=== PATIENT | female | born 1950 | race Caucasian/White ===

== ENCOUNTER 2016-08-28 11:49 | Observation (INO) | payer MEDICARE, OTHER ==
[~2016-08-28] VITALS: Ht 154.9 cm; Wt 59.0 kg
[~2016-08-28 11:49] MED LIST: ALPR-557 PO; AMIO200T2 PO; AMIT10TA6; ASPI-266 PO; BRIN1S OD; CALC0.253 PO; DILT180C82 PO; EST1.25T; ESTR1TAB24 PO; FAMO20TA13 PO; FAMO20TA3 PO; FLT05NA16 NS; FURO20TA4 PO; FURO40TA4 PO; FURO80TA3 PO; GABA-486 PO; GABA600T2 PO; HYDR-3714 PO; L.AC1CAP6 PO; LOPE1TAB13 PO; LOPE2CAP PO; METO-270 PO; METO-333 PO; MYCO360T3 PO; NEPHRO VITE PO; NITR-65 PO; OMEG1CAP51 PO; ONDA8TAB9 PO; PHEN200T27 PO; POLY17PO6 PO; POTA20TA8 PO; PRAV20TA PO; PRAV20TA3 PO; PREVACID; SERT50TA PO; SULF1TAB34 PO; TACR0.5C17 PO; TACR1CAP PO; TACR1CAP22 PO; VIT1TABL52 PO
--- OUTSIDE RECORDS SUMMARY | 2016-08-28 11:55 | XMS REPORT | Continuity of Care Document ---
Author Author [facility] Organization [facility] Address Unknown Phone Unavailable Care Team Providers Care [facility] [employer] Name Role Phone Emi Juarez PCP Unavailable Source Comments Some departments are not documenting in the electronic medical record. If you do not see the information that you expected, contact Release of Information in the Health Information Management department at [phone] for further assistance in locating additional records.[facility] Active Allergies and Adverse Reactions Allergen Noted Date Severity Reactions Comments Codeine 12/22/2010 NAUSEA AND VOMITING Contrast Dye Iv, Iodine 12/03/2015 Low SEE COMMENTS Cannot have due to Containing transplant Morphine 05/21/2015 Low NAUSEA ONLY Current Medications Prescription Sig. Disp. Refills Start End Date Status Date sertraline (ZOLOFT) 50 mg Take 25 mg by mouth Active PO tablet daily. alprazolam (XANAX) 0.5 mg Take 0.5 mg by mouth at Active PO tablet bedtime as needed. estrogens, conjugated Take 1.25 mg by mouth Active (PREMARIN) 1.25 mg PO daily. tablet Aspirin 81 mg PO Tab Take by mouth daily. Active gabapentin (NEURONTIN) Take 600 mg by mouth Active 100 mg capsule twice daily. brinzolamide(+) (AZOPT) 1 1 Drop three times daily. Active % ophthalmic suspension famotidine (PEPCID) 20 mg Take 20 mg by mouth Active tablet daily. fluticasone (FLONASE) 50 Apply 2 Sprays to each Active mcg/actuation nasal spray nostril as directed daily. loperamide (IMODIUM) 2 mg Take 2 mg by mouth as Active capsule Needed. FOLIC ACID/VITAMIN B COMP Take 1 Tab by mouth Active W-C (NEPHRO-BETITO PO) daily. tacrolimus (PROGRAF) 1 mg Take by mouth twice Active capsule daily. mycophenolate DR Take 360 mg by mouth Active (MYFORTIC) 360 mg TbEC twice daily. tablet LACTOBACILLUS ACIDOPHILUS Take 1 Tab by mouth Active (PROBIOTIC PO) daily. POLYETHYLENE GLYCOL 3350 Take by mouth as Needed. Active (MIRALAX PO) FLAXSEED OIL (OMEGA 3 PO) Take 1,000 mg by mouth Active daily. FUROSEMIDE PO Take by mouth twice Active daily. 80mg in AM, 40mg in PM potassium chloride SR Take 20 mEq by mouth Active (K-DUR) 20 mEq tablet daily. DIPHENOXYLATE Take by mouth. Active HCL/ATROPINE (LOMOTIL PO) Active Problems Problem Noted Date Renal cell carcinoma of left kidney (HCC) 05/19/2015 Last Assessment & Plan: Impression: 1. 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 Mild occassional cytopenias 2/2 Myfortic 3. Headaches with negative MRI, unclear etiology 4. PCKD s/p bilateral nephrectomies and subsequent renal transplant 5. ESRD 2/2 #2 6. HTN 7. Afib on amiodarone not anticoagulated 8. CHF 9. AV replacement 01/2015 10. ECOG PS 1 Plan: 1. Doing well from RCCa perspective. She had a very early stage lesion, but a higher risk histology and is on immune suppression. Continue surveillance. 2. Scans not fully read yet. Assuming these are normal, we can see her in a year. 3. CT Chest annually, next due 05/[address] A/P q2yrs, next due 05/2018. 5. She will follow until 10 years have passed, through Fall 2022. 6. RTC with me in 1 year or sooner should new or concerning symptoms develop. I have discussed the diagnosis and treatment plan with the patient and she expresses understanding and wishes to proceed. Hearing loss, neural 02/05/2012 Ovarian cystic mass 12/22/2010 Overview: DIAGNOSIS: Endometriosis PRIOR THERAPY: Status post laparoscopic BSO and excision of left pelvic side wall nodule. Nodule c/w endometriosis. Ovarian cyst: endometriosis. Opposite therapy: atrophy. L ast Assessment & Plan: Current Clinical examination, from today 03/23/2011: She states that she has recovered from surgery. On examination her incisions are intact, clean and without signs of infection Her activity is now at preoperative levels. PLAN: Can resume normal activity. OK to be on transplant list for renal transplant. HTN (hypertension) 12/22/2010 Depression with anxiety 12/22/2010 Atrial fibrillation (HCC) 12/22/2010 Overview: paroxysmal Chronic kidney disease (CKD) 12/22/2010 Overview: Dialysis 3x/weekly CAD (coronary artery disease) 12/22/2010 Chronic UTI 12/22/2010 Most Recent Encounters Date Type Specialty Providers Description 06/05/2016 Office Visit Oncology Delvin Fang MD Renal cell carcinoma of left kidney (HCC) (Primary Dx) 06/05/2016 Hospital Radiology Delvin Fang MD Encounter 06/05/2016 Screening Form Social History Tobacco Use Types Packs/Day Years Used Date Never Smoker Smokeless Tobacco: Never Used Alcohol Use Drinks/Week oz/Week Comments No Last Filed Vital Signs Vital Sign Reading Time Taken Blood Pressure 122/62 06/05/2016 4:09 PM [employer] Pulse 69 06/05/2016 4:09 PM [employer] Temperature 36.5 C (97.7 F) 06/05/2016 4:09 PM [employer] Respiratory Rate 17 06/05/2016 4:09 PM [employer] Height 1.549 m (5' 0.98") 06/05/2016 4:09 PM [employer] Weight 60.51 kg (133 lb 6.4 oz) 06/05/2016 4:09 PM [employer] Body Mass Index 25.22 06/05/2016 4:09 PM [employer] Oxygen Saturation 99% 06/05/2016 4:09 PM [employer] Plan of Care Date Type Specialty Providers Description 05/18/2017 Appointment [place] [address], [place] [address] [phone] (Fax) 05/18/2017 [place] [address] [place] [address] [phone] (Fax) Health Maintenance Due Date Last Done Comments Hepatitis C Screening 1950 Physical (Comprehensive) 1957 Exam Pertussis Vaccine 1961 Tetanus Vaccine 1967 Breast Cancer Screening 1990 Colorectal Cancer 2000 Screening Shingles Vaccine 2010 Osteoporosis Screening 2015 Prevnar/Pneumovax (#1) 2015 Influenza Vaccine 02/17/2016 Results from Last [address] ABD/PELV WO CONTRAST (06/05/2016 4:15 PM) Impressions CHEST: 1. No new or enlarging pulmonary nodules or thoracic lymphadenopathy. ABDOMEN AND PELVIS: 1. Normal appearing right iliac fossa renal transplant without post transplant fluid collection or hydronephrosis. 2. Bilateral nephrectomies without recurrent mass identified. No abdominopelvic lymphadenopathy. Approved by Apollo Charles M.D. on 06/05/2016 5:04 PM By my electronic signature, I attest that I have personally reviewed the images for this examination and formulated the interpretations and opinions expressed in this report Finalized by Cale Mills D.O. on 06/05/2016 5:18 PM. Dictated by Apollo Charles M.D. on 06/05/2016 4:[address] CHEST, ABDOMEN AND PELVIS Clinical Indication: Female, 66 years old. Renal cell carcinoma of the left kidney. Technique: Multiple contiguous axial images were obtained through the chest, abdomen and pelvis without IV contrast material. Post processing coronal and sagittal reconstruction images were made from the axial images. IV contrast: None. Bowel contrast:None Comparison: CT chest from December 03, [address] chest abdomen from April 24, 2014 CHEST FINDINGS: Evaluation of the mediastinum and lupe, including the vasculature and for lymphadenopathy, is limited without the use of IV contrast. Lower Neck: Unremarkable Axilla, Mediastinum and Lupe: No axillary mediastinal lymphadenopathy. Evaluation of the lupe is limited secondary to lack of IV contrast. Heart and Great Vessels: Heart is normal in size. Median sternotomy and aortic valve replacement. Good bony fusion at the sternotomy site with intact sternotomy wires. Coronary artery disease. Airway, Lungs and Pleura: Stable subcentimeter nodule within the left lower lobe unchanged since at least April 24, 2014 and likely benign. No new or enlarging pulmonary nodule identified. Chest Wall and Osseous Structures: Unremarkable. Abdomen and Pelvis Findings: Evaluation the abdominopelvic viscera is limited in the absence of IV contrast. Liver and Biliary system: Unremarkable. Spleen: Unremarkable. Adrenal Glands and Kidneys: Adrenal glands are unremarkable. Bilateral nephrectomies. No recurrent mass identified. Pancreas and Retroperitoneum: Unremarkable. Aorta and Major Vessels: Unremarkable. Bowel, Mesentery and Peritoneal space: Large and small bowel loops are normal in caliber. No ascites. No mesenteric lymphadenopathy. No pneumoperitoneum. Pelvis: Normal appearing right iliac fossa renal transplant without post transplant fluid collection or hydronephrosis. The urinary bladder and vaginal cuff are unremarkable. No pelvic lymphadenopathy. Abdominal wall and Osseous Structures: No destructive osseous lesions. Small fat -containing umbilical hernia. Procedure Note Interface, Radiant Results - Mon Jun 05, 2016 5:22 [address] [employer] [address] CHEST, ABDOMEN AND PELVIS Clinical Indication: Female, 66 years old. Renal cell carcinoma of the left kidney. Technique: Multiple contiguous axial images were obtained through the chest, abdomen and pelvis without IV contrast material. Post processing coronal and sagittal reconstruction images were made from the axial images. IV contrast: None. Bowel contrast: None Comparison: CT chest from December 03, [address] chest abdomen from April 24, 2014 CHEST FINDINGS: Evaluation of the mediastinum and lupe, including the vasculature and for lymphadenopathy, is limited without the use of IV contrast. Lower Neck: Unremarkable Axilla, Mediastinum and Lupe: No axillary mediastinal lymphadenopathy. Evaluation of the lupe is limited secondary to lack of IV contrast. Heart and Great Vessels: Heart is normal in size. Median sternotomy and aortic valve replacement. Good bony fusion at the sternotomy site with intact sternotomy wires. Coronary artery disease. Airway, Lungs and Pleura: Stable subcentimeter nodule within the left lower lobe unchanged since at least April 24, 2014 and likely benign. No new or enlarging pulmonary nodule identified. Chest Wall and Osseous Structures: Unremarkable. Abdomen and Pelvis Findings: Evaluation the abdominopelvic viscera is limited in the absence of IV contrast. Liver and Biliary system: Unremarkable. Spleen: Unremarkable. Adrenal Glands and Kidneys: Adrenal glands are unremarkable. Bilateral nephrectomies. No recurrent mass identified. Pancreas and Retroperitoneum: Unremarkable. Aorta and Major Vessels: Unremarkable. Bowel, Mesentery and Peritoneal space: Large and small bowel loops are normal in caliber. No ascites. No mesenteric lymphadenopathy. No pneumoperitoneum. Pelvis: Normal appearing right iliac fossa renal transplant without post transplant fluid collection or hydronephrosis. The urinary bladder and vaginal cuff are unremarkable. No pelvic lymphadenopathy. Abdominal wall and Osseous Structures: No destructive osseous lesions. Small fat -containing umbilical hernia. IMPRESSION CHEST: 1. No new or enlarging pulmonary nodules or thoracic lymphadenopathy. ABDOMEN AND PELVIS: 1. Normal appearing right iliac fossa renal transplant without post transplant fluid collection or hydronephrosis. 2. Bilateral nephrectomies without recurrent mass identified. No abdominopelvic lymphadenopathy. Approved by Apollo Charles M.D. on 06/05/2016 5:04 PM By my electronic signature, I attest that I have personally reviewed the images for this examination and formulated the interpretations and opinions expressed in this report Finalized by Cale Mills D.O. on 06/05/2016 5:18 PM. Dictated by Apollo Charles M.D. on 06/05/2016 4:[address] CHEST WO CONTRAST (06/05/2016 4:15 PM) Impressions CHEST: 1. No new or enlarging pulmonary nodules or thoracic lymphadenopathy. ABDOMEN AND PELVIS: 1. Normal appearing right iliac fossa renal transplant without post transplant fluid collection or hydronephrosis. 2. Bilateral nephrectomies without recurrent mass identified. No abdominopelvic lymphadenopathy. Approved by Apollo Charles M.D. on 06/05/2016 5:04 PM By my electronic signature, I attest that I have personally reviewed the images for this examination and formulated the interpretations and opinions expressed in this report Finalized by Cale Mills D.O. on 06/05/2016 5:18 PM. Dictated by Apollo Charles M.D. on 06/05/2016 4:[address] CHEST, ABDOMEN AND PELVIS Clinical Indication: Female, 66 years old. Renal cell carcinoma of the left kidney. Technique: Multiple contiguous axial images were obtained through the chest, abdomen and pelvis without IV contrast material. Post processing coronal and sagittal reconstruction images were made from the axial images. IV contrast: None. Bowel contrast:None Comparison: CT chest from December 03, [address] chest abdomen from April 24, 2014 CHEST FINDINGS: Evaluation of the mediastinum and lupe, including the vasculature and for lymphadenopathy, is limited without the use of IV contrast. Lower Neck: Unremarkable Axilla, Mediastinum and Lupe: No axillary mediastinal lymphadenopathy. Evaluation of the lupe is limited secondary to lack of IV contrast. Heart and Great Vessels: Heart is normal in size. Median sternotomy and aortic valve replacement. Good bony fusion at the sternotomy site with intact sternotomy wires. Coronary artery disease. Airway, Lungs and Pleura: Stable subcentimeter nodule within the left lower lobe unchanged since at least April 24, 2014 and likely benign. No new or enlarging pulmonary nodule identified. Chest Wall and Osseous Structures: Unremarkable. Abdomen and Pelvis Findings: Evaluation the abdominopelvic viscera is limited in the absence of IV contrast. Liver and Biliary system: Unremarkable. Spleen: Unremarkable. Adrenal Glands and Kidneys: Adrenal glands are unremarkable. Bilateral nephrectomies. No recurrent mass identified. Pancreas and Retroperitoneum: Unremarkable. Aorta and Major Vessels: Unremarkable. Bowel, Mesentery and Peritoneal space: Large and small bowel loops are normal in caliber. No ascites. No mesenteric lymphadenopathy. No pneumoperitoneum. Pelvis: Normal appearing right iliac fossa renal transplant without post transplant fluid collection or hydronephrosis. The urinary bladder and vaginal cuff are unremarkable. No pelvic lymphadenopathy. Abdominal wall and Osseous Structures: No destructive osseous lesions. Small fat -containing umbilical hernia. Procedure Note Interface, Radiant Results - Mon Jun 05, 2016 5:22 [address] [employer] [address] CHEST, ABDOMEN AND PELVIS Clinical Indication: Female, 66 years old. Renal cell carcinoma of the left kidney. Technique: Multiple contiguous axial images were obtained through the chest, abdomen and pelvis without IV contrast material. Post processing coronal and sagittal reconstruction images were made from the axial images. IV contrast: None. Bowel contrast: None Comparison: CT chest from December 03, [address] chest abdomen from April 24, 2014 CHEST FINDINGS: Evaluation of the mediastinum and lupe, including the vasculature and for lymphadenopathy, is limited without the use of IV contrast. Lower Neck: Unremarkable Axilla, Mediastinum and Lupe: No axillary mediastinal lymphadenopathy. Evaluation of the lupe is limited secondary to lack of IV contrast. Heart and Great Vessels: Heart is normal in size. Median sternotomy and aortic valve replacement. Good bony fusion at the sternotomy site with intact sternotomy wires. Coronary artery disease. Airway, Lungs and Pleura: Stable subcentimeter nodule within the left lower lobe unchanged since at least April 24, 2014 and likely benign. No new or enlarging pulmonary nodule identified. Chest Wall and Osseous Structures: Unremarkable. Abdomen and Pelvis Findings: Evaluation the abdominopelvic viscera is limited in the absence of IV contrast. Liver and Biliary system: Unremarkable. Spleen: Unremarkable. Adrenal Glands and Kidneys: Adrenal glands are unremarkable. Bilateral nephrectomies. No recurrent mass identified. Pancreas and Retroperitoneum: Unremarkable. Aorta and Major Vessels: Unremarkable. Bowel, Mesentery and Peritoneal space: Large and small bowel loops are normal in caliber. No ascites. No mesenteric lymphadenopathy. No pneumoperitoneum. Pelvis: Normal appearing right iliac fossa renal transplant without post transplant fluid collection or hydronephrosis. The urinary bladder and vaginal cuff are unremarkable. No pelvic lymphadenopathy. Abdominal wall and Osseous Structures: No destructive osseous lesions. Small fat -containing umbilical hernia. IMPRESSION CHEST: 1. No new or enlarging pulmonary nodules or thoracic lymphadenopathy. ABDOMEN AND PELVIS: 1. Normal appearing right iliac fossa renal transplant without post transplant fluid collection or hydronephrosis. 2. Bilateral nephrectomies without recurrent mass identified. No abdominopelvic lymphadenopathy. Approved by Apollo Charles M.D. on 06/05/2016 5:04 PM By my electronic signature, I attest that I have personally reviewed the images for this examination and formulated the interpretations and opinions expressed in this report Finalized by Cale Mills D.O. on 06/05/2016 5:18 PM. Dictated by Apollo Charles M.D. on 06/05/2016 4:40 PM.
[2016-08-28] MEDS ORDERED: ASPIRIN 81 MG CHEW (CHILDREN'S ASA) PO ONE (12:00)
[2016-08-28 12:17] LABS: BASOPHILS % (AUTO) 1 % (0-10); EOSINOPHILS # (AUTO) 0.1 10^3/uL (0.0-0.3); EOSINOPHILS % (AUTO) 1 % (0-10); LYMPHOCYTES # (AUTO) 1.4 X 10^3 (1.0-4.0); LYMPHOCYTES % (AUTO) 25 % (12-44); MEAN CORPUSCULAR HEMOGLOBIN 30 PG (25-34); MEAN CORPUSCULAR HGB CONC 36 G/DL (32-36); MEAN CORPUSCULAR VOLUME 83 FL (80-99); MEAN PLATELET VOLUME 11.5 FL (7.4-10.4); MONOCYTES # (AUTO) 0.6 X 10^3 (0.0-1.0); MONOCYTES % (AUTO) 11 % (0-12); NEUTROPHILS # (AUTO) 3.6 X 10^3 (1.8-7.8); NEUTROPHILS % (AUTO) 64 % (42-75); PLATELET COUNT 207 10^3/uL (130-400); RED BLOOD COUNT 4.46 10^6/uL (4.35-5.85); RED CELL DISTRIBUTION WIDTH 13.6 % (10.0-14.5); WHITE BLOOD COUNT 5.7 10^3/uL (4.3-11.0)
[2016-08-28 12:26] LABS: PROTHROMBIN TIME PATIENT 13.1 SEC (12.2-14.7)
[2016-08-28 12:34] LABS: ALANINE AMINOTRANSFERASE 19 U/L (0-55); ALBUMIN 4.4 G/DL (3.2-4.5); ANION GAP 13 MMOL/L (5-14); ASPARTATE AMINO TRANSFERASE 33 U/L (5-34); BILIRUBIN,TOTAL 1.3 MG/DL (0.1-1.0); BLOOD UREA NITROGEN 12 MG/DL (7-18); BUN/CREATININE RATIO 13; CALCIUM 9.5 MG/DL (8.5-10.1); CARBON DIOXIDE 24 MMOL/L (21-32); CHLORIDE 109 MMOL/L (98-107); CREATINE KINASE 52 U/L (29-168); GFR ESTIMATED > 60; GLUCOSE 90 MG/DL (70-105); MAGNESIUM 2.2 MG/DL (1.8-2.4); POTASSIUM 4.2 MMOL/L (3.6-5.0); SODIUM 146 MMOL/L (135-145); TOTAL PROTEIN 6.9 G/DL (6.4-8.2)
[2016-08-28 12:41] LABS: MYOGLOBIN SERUM 51.4 NG/ML (10.0-92.0)
--- NOTE | 2016-08-28 12:50 | Diagnostic Imaging Report ---
Portable upright radiograph of the chest. INDICATION: Shortness of breath and chest pain. FINDINGS: The lungs demonstrate minimal interstitial prominence in the mid and lower lungs, may relate to scarring with no focal consolidation. The heart is borderline in size. There is an aortic valve replacement and sternotomy wires seen. No effusion or pneumothorax. The mediastinum and ginger appear unremarkable. IMPRESSION: Minimal prominence of the interstitial markings in the mid and lower lung zones could relate to scarring. No airspace consolidation. Dictated by: Dictated on workstation # [id number]
[2016-08-28] MEDS ORDERED: fentaNYL INJECTION 100 MCG/2 ML AMP IVP STA (13:38)
--- NOTE | 2016-08-28 13:42 | ED Cardiac General ---
History of Present Illness General Chief Complaint: Chest Pain Stated Complaint: CHEST PAIN Nursing Triage Note: PT SENT TO ED BY [facility] FOR CHEST PAIN SINCE LAST NOC. PT REPORTS STERNAL CP THAT IS REPRODUCABLE. SHE ALSO C/O NAUSEA AND DYSPNEA UPON EXERTION. PT HAS SIGNIFICANT PMH. Source: patient, spouse Exam Limitations: no limitations History of Present Illness Time seen by provider: 13:15 Initial Comments 66 yo female patient presents to the ED with c/o sternal chest pain that radiates into the LUE. Reports pain is intermittent. Does c/o nausea and ROY. Denies wheezing, dizziness, vomiting. Does have a h/o IBS. States she has been stressed the last several days and has a h/o anxiety. Has a h/o cochlear implant and kidney transplant. Patient sees a kiln tender and it communications manager at [facility]. Timing/Duration: intermittent, 12-24 hours Location: central Activities at Onset: none NTG SL SAND CAR WORKER: No ASA po SAND CAR WORKER: No Allergies and Home Medications Allergies Coded Allergies: codeine (Unverified Allergy, Unknown, 04/01/15) morphine (Verified Allergy, Unknown, NAUSEA, 05/05/16) Home Medications Alosetron HCl 0.5 Mg Tab 0.5 MG PO BID (Reported) Alprazolam 0.5 Mg Tab 0.5 MG PO PRN PRN PRN SLEEP (Reported) Aspirin 81 Mg Tablet.dr 81 MG PO DAILY (Reported) Brinzolamide 5 Ml Drops.susp 1 DROP OD DAILY (Reported) Cholecalciferol (Vitamin D3) 400 Unit Tablet 400 UNIT PO DAILY (Reported) Cyanocobalamin (Vitamin B-12) 1,000 Mcg Tablet 1,000 MCG PO DAILY (Reported) Dicyclomine HCl 20 Mg Tablet 20 MG PO QID (Reported) Diphenoxylate HCl/Atropine 1 Each Tablet 1 EACH PO QID PRN PRN DIARRHEA ( Reported) Esomeprazole Magnesium 40 Mg Cap 40 MG PO DAILY (Reported) Famotidine 20 Mg Tablet 20 MG PO DAILY (Reported) Fluticasone Propionate 16 Gm [place] #1 1 SPRAY NS UD PRN PRN CONGESTION (Reported ) Furosemide 40 Mg Tablet 40 MG PO 1600 (Reported) Furosemide 80 Mg Tablet 80 MG PO DAILY (Reported) Gabapentin 600 Mg Tablet 600 MG PO TID (Reported) L.acidoph & Paracasei,B.lactis 1 Each Capsule 1 CAP PO BID (Reported) Loperamide HCl/Simethicone 1 Each Tablet 1 EACH PO PRN (Reported) Mycophenolate Sodium 360 Mg Tablet.dr 360 MG PO BID (Reported) Polyethylene Glycol 3350 17 Gm Powd.pack 17 GM PO UD PRN PRN PRN (Reported) Potassium Chloride 20 Meq Tab.er.prt 20 MEQ PO DAILY (Reported) Sertraline Hcl 50 Mg Tablet 50 MG PO HS (Reported) Tacrolimus 1 Mg Capsule 1 MG PO BID (Reported) Vit B Cmplx 3/FA/Vit C/Biotin 1 Each Tablet 1 TAB PO DAILY (Reported) Review of Systems Constitutional: No chills, No diaphoresis, No dizziness, No fever, malaiseNo weakness EENTM: No Symptoms Reported Respiratory: Denies Cough, Shortness of Air SOA With ExertionDenies Stridor, Denies Wheezing Cardiovascular: Denies Chest Pain, Denies Edema, Denies Lightheadedness, Denies Palpitations, Denies Syncope Gastrointestinal: Denies Abdomen Distended, Denies Abdominal Pain, Nausea Poor AppetiteDenies Poor Fluid Intake, Denies Rectal Bleeding, Denies Vomiting, Other (alternating constipation with diarrhea due to recent diagnosis of IBS) Genitourinary: Denies Burning, Denies Frequency, Denies Flank Pain, Denies Hematuria, Denies Pain Musculoskeletal: see HPI Skin: no symptoms reported Psychiatric/Neurological: Denies Headache, Denies Numbness, Denies Paresthesia , Denies Tingling, Denies Weakness All Other Systems Reviewed Negative Unless Noted: Yes (Negative excepted noted.) Past Jnrywcb-Ssfzil-Uwgmfg Hx Patient Social History Alcohol Use: Denies Use Recreational Drug Use: No Smoking Status: Never a Smoker 2nd Hand Smoke Exposure: No Recent Foreign Travel: No Contact w/Someone Who Travel: No Recent Infectious Disease Expo: No Recent Hopitalizations: No Immunizations Up To Date Tetanus Booster (TDap): Unknown PED Vaccines UTD: No Date of Pneumonia Vaccine: Jun 18, 2014 Date of Influenza Vaccine: Mar 24, 2016 Seasonal Allergies Seasonal Allergies: Yes Surgeries HX Surgeries: Yes (COCHLEAR IMPLANT, CARDIAC ABLATION) Surgeries: Appendectomy, Cardiac, Hysterectomy, Nephrectomy, Oophorectomy, Orthopedic, Renal, Tonsillectomy, Valve Replacement Respiratory Hx Respiratory Disorders: No Respiratory Disorders: Pneumonia Cardiovascular Hx Cardiac Disorders: Yes ( CHF) Cardiac Disorders: Atrial Fibrillation, Hypertension, Valvular Heart Disease Neurological Hx Neurological Disorders: Yes Neurological Disorders: Neuropathy Reproductive System Hx Reproductive Disorders: No Genitourinary Hx Genitourinary Disorders: Yes (KIDNEY TRANSPLANT WITH [place] KIDNEY REMOVAL) Genitourinary Disorders: Polycystic Kidney Disease Gastrointestinal Hx Gastrointestinal Disorders: Yes Gastrointestinal Disorders: Chronic Diarrhea Musculoskeletal Hx Musculoskeletal Disorders: No Musculoskeletal Disorders: Degenerate Disk Disease, Arthritis Endocrine Hx Endocrine Disorders: No HEENT HX ENT Disorders: Yes (GLASS L EYE) HEENT Disorders: Cataract Hearing Impairment: Hard of Hearing, Bilateral Hearing Aide Cancer Hx Cancer: Yes Cancer: Kidney Psychosocial Hx Psychiatric Problems: Yes Behavioral Health Disorders: Depression Integumentary HX Skin/Integumentary Disorder: No Blood Transfusions Hx Blood Disorders: No Reviewed Nursing Assessment Reviewed/Agree w Nursing PMH: Yes Family Medical History Significant Family History: No Pertinent Family Hx Family Medial History: Patient reports no known family medical history. Physical Exam Vital Signs Vital Sign - Last 12Hours Capillary Refill : Less Than 3 Seconds General Appearance: WD/WN Anxious Neck: Normal Inspection SuppleNo JVD Respiratory: Lungs Clear Normal Breath Sounds No Respiratory Distress Other ( anterior chest TTP) Cardiovascular: Regular Rate, Rhythm No Murmur Normal Peripheral Pulses Gastrointestinal: Normal Bowel Sounds No Organomegaly SoftNo Distended, Guarding (RUQ)No Rebound, Tenderness (RUQ and epigastric) Extremity: Normal Capillary Refill Normal Inspection No Calf Tenderness No Pedal Edema Neurologic/Psychiatric: Alert Oriented x3 Other (patient is very anxious and tearful throughout the exam.) Skin: Normal Color Warm/Dry Focused Exam Lactic Acid Level Laboratory Tests Test 08/28/16 12:00 08/28/16 12:59 Alanine Aminotransferase (ALT/SGPT) 19U/L (0-55) Albumin 4.4G/DL (3.2-4.5) Alkaline Phosphatase 86U/L (40-136) Anion Gap 13MMOL/L (5-14) Aspartate Amino Transf (AST/SGOT) 33U/L (5-34) BUN/Creatinine Ratio 13 Blood Urea Nitrogen 12MG/DL (7-18) Calcium Level 9.5MG/DL (8.5-10.1) Carbon Dioxide Level 24MMOL/L (21-32) Chloride Level 109MMOL/L (98-107) H Creatine Kinase MB 0.8NG/ML (<6.6) Creatinine 0.90MG/DL (0.60-1.30) Estimat Glomerular Filtration Rate > 60 Glucose Level 90MG/DL (70-105) Magnesium Level 2.2MG/DL (1.8-2.4) Myoglobin 51.4NG/ML (10.0-92.0) Potassium Level 4.2MMOL/L (3.6-5.0) Sodium Level 146MMOL/L (135-145) H Total Bilirubin 1.3MG/DL (0.1-1.0) H Total Creatine Kinase 52U/L (29-168) Total Protein 6.9G/DL (6.4-8.2) Troponin I < 0.30NG/ML (<0.30) B-Type Natriuretic Peptide 149.9PG/ML (<100.0) H Progress/Results/Core Measures Results/Orders Lab Results Laboratory Tests Test 08/28/16 12:00 08/28/16 12:59 Range/Units Activated Partial Thromboplast Time 33 24-35 SEC Alanine Aminotransferase (ALT/SGPT) 19 0-55 U/L Albumin 4.4 3.2-4.5 G/DL Alkaline Phosphatase 86 40-136 U/L Anion Gap 13 5-14 MMOL/L Aspartate Amino Transf (AST/SGOT) 33 5-34 U/L BUN/Creatinine Ratio 13 Basophils # (Auto) 0.0 0.0-0.1 10^3/uL Basophils (%) (Auto) 1 0-10 % Blood Urea Nitrogen 12 7-18 MG/DL Calcium Level 9.5 8.5-10.1 MG/DL Carbon Dioxide Level 24 21-32 MMOL/L Chloride Level 109 H 98-107 MMOL/L Creatine Kinase MB 0.8 <6.6 NG/ML Creatinine 0.90 0.60-1.30 MG/DL Eosinophils # (Auto) 0.1 0.0-0.3 10^3/uL Eosinophils (%) (Auto) 1 0-10 % Estimat Glomerular Filtration Rate > 60 Glucose Level 90 70-105 MG/DL Hematocrit 37 35-52 % Hemoglobin 13.3 11.5-16.0 G/DL INR Comment 1.0 0.8-1.4 Lymphocytes # (Auto) 1.4 1.0-4.0 X 10^3 Lymphocytes (%) (Auto) 25 12-44 % Magnesium Level 2.2 1.8-2.4 MG/DL Mean Corpuscular Hemoglobin 30 25-34 PG Mean Corpuscular Hemoglobin Concent 36 32-36 G/DL Mean Corpuscular Volume 83 80-99 FL Mean Platelet Volume 11.5 H 7.4-10.4 FL Monocytes # (Auto) 0.6 0.0-1.0 X 10^3 Monocytes (%) (Auto) 11 0-12 % Myoglobin 51.4 10.0-92.0 NG/ML Neutrophils # (Auto) 3.6 1.8-7.8 X 10^3 Neutrophils (%) (Auto) 64 42-75 % Platelet Count 207 130-400 10^3/uL Potassium Level 4.2 3.6-5.0 MMOL/L Prothrombin Time 13.1 12.2-14.7 SEC Red Blood Count 4.46 4.35-5.85 10^6/uL Red Cell Distribution Width 13.6 10.0-14.5 % Sodium Level 146 H 135-145 MMOL/L Total Bilirubin 1.3 H 0.1-1.0 MG/DL Total Creatine Kinase 52 29-168 U/L Total Protein 6.9 6.4-8.2 G/DL Troponin I < 0.30 <0.30 NG/ML White Blood Count 5.7 4.3-11.0 10^3/uL B-Type Natriuretic Peptide 149.9 H <100.0 PG/ML My Orders Orders-RHONDA PIKE PA Cbc With Automated Diff (08/28/16 11:58) Magnesium (08/28/16 11:58) Chest 1 View, Ap/Pa Only (08/28/16 11:58) Ekg Tracing (08/28/16 11:58) Cardiac Profile 1 (08/28/16 11:58) Comprehensive Metabolic Panel (08/28/16 11:58) Myoglobin Serum (08/28/16 11:58) Protime With Inr (08/28/16 11:58) Partial Thromboplastin Time (08/28/16 11:58) O2 (08/28/16 11:58) Monitor-Rhythm Ecg Trace Only (08/28/16 11:58) Lipid Panel (08/29/16 06:00) Aspirin Chewable Tablet (Baby Aspirin Ch (08/28/16 12:00) Saline Lock/Iv-Start (08/28/16 11:58) Creatine Kinase (08/28/16 11:58) Creatine Kinase Mb (08/28/16 11:58) BNP (08/28/16 11:58) Us Gallbladder 42840 (08/28/16 13:38) Alprazolam Tablet (Xanax Tablet) (08/28/16 13:45) Fentanyl Injection (Sublimaze Injection (08/28/16 13:38) Medications Given in ED Vital Signs/I&O Vital Sign - Last 12Hours 08/28/16 08/28/16 08/28/16 08/28/16 11:49 11:49 12:00 12:27 Temp 97.9 98.1 Pulse 65 Resp 24 B/P 149/74 Pulse Ox 100 100 O2 Delivery Room Air Room Air Room Air Blood Pressure Mean: 99 ECG Initial ECG Impression Date: Aug 28, 2016 Initial ECG Impression Time: 11:56 Initial ECG Rate: 67 Initial ECG Rhythm: Normal Sinus Initial ECG Comparisson: Unchanged Comment Sinus rhythm. Borderline QT prolongation. Similar to previous ECG. ECG reviewed and discussed with Dr. Rodas. Diagnostic Imaging Diagonstic Imaging: Ultrasound Plain Films/CT/US/NM/MRI: other (gallbladder) Comments FINDINGS: The pancreas is largely obscured by bowel gas. The liver demonstrates no focal lesion. Hepatopetal flow in the portal vein is seen. The gallbladder demonstrates no stones or wall thickening. No pericholecystic fluid is seen. The CBD is 3 mm in caliber. The right renal fossa demonstrates no visualized kidney possibly related to atrophy. There is a renal transplant in the right lower quadrant measuring 9 cm in length with no hydronephrosis or focal lesion. No free fluid or fluid collection in the upper right quadrant. Sonographic Leyva's sign is reportedly negative. IMPRESSION: No evidence of gallstones or cholecystitis. Dictated by: Dictated on workstation # [id number] Reviewed: Reviewed by Me (radiology report reviewed by me) Diagonstic Imaging: Xray Plain Films/CT/US/NM/MRI: chest Comments FINDINGS: The lungs demonstrate minimal interstitial prominence in the mid and lower lungs, may relate to scarring with no focal consolidation. The heart is borderline in size. There is an aortic valve replacement and sternotomy wires seen. No effusion or pneumothorax. The mediastinum and ginger appear unremarkable. IMPRESSION: Minimal prominence of the interstitial markings in the mid and lower lung zones could relate to scarring. No airspace consolidation. Dictated by: Dictated on workstation # [id number] Reviewed: Reviewed by Me (radiology report reviewed by me. ) Departure Communication Time/Spoke to Admitting Phy: 17:[address] Lawrence accepts patient to her medical service for pain cardiology consult and further evaluation. Progress Notes Patient seen and evaluated. Patient did show improvement in symptoms with fentanyl and xanax. Patient does con't to have intermittent anxiety and chest pain radiating down the LUE. I have discussed all laboratory findings, diagnostic findings and plan for admission with the patient and . Both voice understanding and agree with the treatment plan. Patient case discussed with Dr. Rodas, he agrees with the plan of care. Impression Impression: Primary Impression: Chest pain Qualified Code: R07.9 - Chest pain, unspecified Additional Impressions: Shortness of breath RUQ abdominal pain Anxiety Disposition: ADMITTED INPATIENT Condition: Stable Decision to Admit Reason: Admit from ER (General) Decision to Admit/Date: Aug 28, 2016 Time/Decision to Admit Time: 17:30 Departure-Patient Inst. Referrals: GISELA BRUSH DO (PCP/Family) Primary Care Physician RHONDA PIKE Aug 28, 2016 13:42
[2016-08-28] MEDS ORDERED: ALPRAZolam 0.25 MG (XANAX) TAB PO ONE (13:45)
--- NOTE | 2016-08-28 15:21 | Diagnostic Imaging Report ---
PROCEDURE: US Gallbladder. TECHNIQUE: Multiple real-time grayscale images were obtained over the right upper quadrant in various projections. INDICATION: Chest pain. FINDINGS: The pancreas is largely obscured by bowel gas. The liver demonstrates no focal lesion. Hepatopetal flow in the portal vein is seen. The gallbladder demonstrates no stones or wall thickening. No pericholecystic fluid is seen. The CBD is 3 mm in caliber. The right renal fossa demonstrates no visualized kidney possibly related to atrophy. There is a renal transplant in the right lower quadrant measuring 9 cm in length with no hydronephrosis or focal lesion. No free fluid or fluid collection in the upper right quadrant. Sonographic Leyva's sign is reportedly negative. IMPRESSION: No evidence of gallstones or cholecystitis. Dictated by: Dictated on workstation # [id number]
[2016-08-28] MEDS ORDERED: PATIENT MAY USE OWN MEDS, ALL MC SCH (18:15)
[2016-08-28] MEDS ORDERED: ALPRAZolam 0.5 MG (XANAX) TAB PO PRN (18:15)
[2016-08-28] MEDS ORDERED: CATHETER FLUSH 10 ML SYR IV PRN (18:30)
[2016-08-28] MEDS ORDERED: ALPRAZolam 0.25 MG (XANAX) TAB PO PRN (18:30)
[2016-08-28] MEDS ORDERED: ACETAMINOPHEN 500 MG TAB (TYLENOL) PO PRN (18:30)
[2016-08-28] MEDS ORDERED: CYAN10006 PO (18:42)
[2016-08-28] MEDS ORDERED: ASPI-479 PO (18:42)
[2016-08-28] MEDS ORDERED: DICY20TA10 PO (18:42)
[2016-08-28] MEDS ORDERED: DIPH1TAB PO (18:42)
[2016-08-28] MEDS ORDERED: NF-ESOM40C PO (18:42)
[2016-08-28] MEDS ORDERED: CHOL400T PO (18:42)
[2016-08-28] MEDS ORDERED: NFALOSE0.5 PO (18:42)
[2016-08-28] MEDS ORDERED: DIPHENOXYLATE/ATROPINE 2.5MG/0.025MG (LOMOTIL) TAB PO PRN (19:30)
[2016-08-28 20:00] VITALS: BP 156/77
[2016-08-28] MEDS: 1/2 NS IV SOLUTION 1,000 ML IV SCH (20:56)
[2016-08-28] MEDS ORDERED: MYCOPHENOLIC ACID 360 MG TAB PO SCH (21:00)
[2016-08-28] MEDS ORDERED: DICYCLOMINE 20 MG TAB PO SCH (21:00)
[2016-08-28] MEDS ORDERED: ALOSETRON PO SCH (21:00)
[2016-08-28] MEDS ORDERED: SERTRALINE 50 MG (ZOLOFT) TABLET PO SCH (21:00)
[2016-08-28] MEDS ORDERED: TACROLIMUS 1 MG (PROGRAF) CAP NON-FORMULARY PO SCH (21:00)
[2016-08-29] VITALS: BP 122/58
[2016-08-29 04:00] VITALS: BP 145/78
[2016-08-29 06:34] LABS: BASOPHILS % (AUTO) 0 % (0-10); EOSINOPHILS # (AUTO) 0.1 10^3/uL (0.0-0.3); EOSINOPHILS % (AUTO) 2 % (0-10); LYMPHOCYTES % (AUTO) 22 % (12-44); MEAN CORPUSCULAR HEMOGLOBIN 30 PG (25-34); MEAN CORPUSCULAR HGB CONC 36 G/DL (32-36); MEAN CORPUSCULAR VOLUME 83 FL (80-99); MEAN PLATELET VOLUME 11.3 FL (7.4-10.4); MONOCYTES # (AUTO) 0.4 X 10^3 (0.0-1.0); MONOCYTES % (AUTO) 9 % (0-12); NEUTROPHILS % (AUTO) 66 % (42-75); PLATELET COUNT 158 10^3/uL (130-400); RED BLOOD COUNT 4.03 10^6/uL (4.35-5.85); RED CELL DISTRIBUTION WIDTH 13.3 % (10.0-14.5); WHITE BLOOD COUNT 4.6 10^3/uL (4.3-11.0)
[2016-08-29 06:52] LABS: CHOLESTEROL 212 MG/DL (< 200); DIRECT LDL 154 MG/DL (1-129); TRIGLYCERIDES 155 MG/DL (<150); VLDL CHOLESTEROL 31 MG/DL (5-40)
[2016-08-29 06:54] LABS: ALANINE AMINOTRANSFERASE 13 U/L (0-55); ALBUMIN 3.7 G/DL (3.2-4.5); ANION GAP 13 MMOL/L (5-14); ASPARTATE AMINO TRANSFERASE 19 U/L (5-34); BILIRUBIN,TOTAL 1.3 MG/DL (0.1-1.0); BLOOD UREA NITROGEN 13 MG/DL (7-18); BUN/CREATININE RATIO 14; CALCIUM 8.6 MG/DL (8.5-10.1); CARBON DIOXIDE 20 MMOL/L (21-32); CHLORIDE 110 MMOL/L (98-107); CREATININE SERUM 0.91 MG/DL (0.60-1.30); GFR ESTIMATED > 60; GLUCOSE 86 MG/DL (70-105); SODIUM 143 MMOL/L (135-145); TOTAL PROTEIN 5.3 G/DL (6.4-8.2)
[2016-08-29] MEDS ORDERED: NEXIUM 40 MG CAPSULE PO SCH (07:00)
[2016-08-29] MEDS: 1/2 NS IV SOLUTION 1,000 ML IV SCH (07:57)
[2016-08-29 08:56] VITALS: BP 141/63
[2016-08-29] MEDS ORDERED: VITAMIN B-12 1000 MCG TAB PO SCH (09:00)
[2016-08-29] MEDS ORDERED: ASPIRIN E.C. 81 MG (ECOTRIN) TAB PO SCH (09:00)
[2016-08-29] MEDS ORDERED: VITAMIN D3 400 UNITS (CHOLECALCIFEROL) TABLET PO SCH (09:00)
--- NOTE | 2016-08-29 09:05 | Consultation-Cardiology ---
HPI-Cardiology Cardiology Consultation Date of Consultation 08/29/16 Date of Admission Indication: Chest pain, left arm pain HPI Patient is a 66 year old female who presented to the ER yesterday after being sent over from [facility] for complaints of chest pain, RUQ abdominal pain. Has hx of nonobstructive CAD per 2010 cath, AVR replacement, history of PAF. Complains of episodes of CP with left arm pain, occurring 2 nights ago before bed time. Currently denies any CP. Complaining of lower abdominal pain and cramping. Denies any dyspnea, dizziness, lightheadedness or peripheral edema. Patient was seen and evaluated with Sherron she is a 66-year-old lady with history of kidney transplant, left eye transplant. Paroxysmal atrial fibrillation and aortic valve replacement, came in with chest pain, left arm pain, occurred at night. Currently denied any chest pain, has been having significant lower abdominal cramps. Mainly left lower quadrant pain. Lightheadedness, no other symptoms. She was fairly anxious and asking to go home. Had a cardiac catheterization done 2 years ago and it was reported to be normal. Home Medications & Allergies Allergies: Coded Allergies: codeine (Unverified Allergy, Unknown, 04/01/15) morphine (Verified Allergy, Unknown, NAUSEA, 05/05/16) Home Medication List Reviewed: Yes [id number] Hx Patient Social History Marital Status: Alcohol Use: Denies Use Recreational Drug Use: No Smoking Status: Never a Smoker 2nd Hand Smoke Exposure: No Recent Foreign Travel: No Recent Infectious Disease Expo: No Recent Hopitalizations: No Physical Abuse Screen: No Sexual Abuse: No Immunizations Up To Date Tetanus Booster (TDap): Unknown Date of Pneumonia Vaccine: Jun 18, 2014 Date of Influenza Vaccine: Mar 24, 2016 Past Medical History AVR, PAF, hx kidney transplant Family Medical History Significant Family History: No Pertinent Family Hx Family History: Patient reports no known family medical history. Constitutional: No chills, No diaphoresis, No fever, No malaise EENTM: No blurred vision, No ear pain, No vision loss Respiratory: No cough, No dyspnea on exertion Cardiovascular: No chest pain, No edema, No palpitations Gastrointestinal: abdominal pain diarrhea Reviewed Test Results Reviewed Test Results Lab Laboratory Tests 08/28/16 18:15: Troponin I < 0.30 08/29/16 06:14: Alanine Aminotransferase (ALT/SGPT) 13, Albumin 3.7, Alkaline Phosphatase 73, Anion Gap 13, Aspartate Amino Transf (AST/SGOT) 19, BUN/Creatinine Ratio 14, Basophils # (Auto) 0.0, Basophils (%) (Auto) 0, Blood Urea Nitrogen 13, Calcium Level 8.6, Carbon Dioxide Level 20L, Chloride Level 110H, Cholesterol Level 212H , Creatinine 0.91, Eosinophils # (Auto) 0.1, Eosinophils (%) (Auto) 2, Estimat Glomerular Filtration Rate > 60, Glucose Level 86, HDL Cholesterol 29L, Hematocrit 33L, Hemoglobin 11.9, LDL Cholesterol Direct 154H, Lymphocytes # ( Auto) 1.0, Lymphocytes (%) (Auto) 22, Mean Corpuscular Hemoglobin 30, Mean Corpuscular Hemoglobin Concent 36, Mean Corpuscular Volume 83, Mean Platelet Volume 11.3H, Monocytes # (Auto) 0.4, Monocytes (%) (Auto) 9, Neutrophils # ( Auto) 3.0, Neutrophils (%) (Auto) 66, Platelet Count 158, Potassium Level 3.0L, Red Blood Count 4.03L, Red Cell Distribution Width 13.3, Sodium Level 143, Total Bilirubin 1.3H, Total Protein 5.3L, Triglycerides Level 155H, VLDL Cholesterol 31, White Blood Count 4.6 ECG Impression ECG Initial ECG Rhythm: Normal Sinus Physical Exam Vital Signs Vital Sign - Last 12Hours Capillary Refill : Less Than 3 Seconds General Appearance: No Apparent Distress WD/WN Anxious HEENT: PERRL/EOMI TMs Normal Neck: Full Range of Motion Normal Inspection Non Tender SuppleNo Carotid Bruit Respiratory: Chest Non Tender Lungs Clear Normal Breath Sounds No Accessory Muscle Use No Respiratory Distress Cardiovascular: Regular Rate, Rhythm No Edema No Gallop No JVD No Murmur Gastrointestinal: No Pulsatile Mass Soft Tenderness Rectal: Deferred A/P-Cardiology Admission Diagnosis CP CAD PAF AVR Assessment/Plan CP, nonspecific etiology- EKG reveals no acute ST changes. Cardiac enzymes negative. Patient reports CP is resolved. Unlikely to be cardiac in nature. Follow up with primary otm consultant as outpatient. CAD- reported nonobstructive disease per cardiac catheterization in 2010. She states she follows with her otm consultant on a routine basis and has had a stress test within the last year, reported to be normal. Continue to monitor. PAF- EKG reveals SR. Continue to monitor. Hx of AVR with porcine valve, bilateral pulmonary vein ablation and staple amputation of the left atrial appendage, follows with otm consultant at [facility] History of diastolic dysfunction HTN- restart home BP medications and continue to monitor. Lower abdominal pain and cramping with diarrhea- recommend further evaluation with GI doctor. 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 Nieto. This is Sherron Tang PA-C as a scribe for Dr. Lizarraga. Patient was seen and evaluated with Sherron, I interviewed the patient and perform physical examination, on examination lungs were clear to auscultation, heart is regular rate and rhythm, stabbing chest pain, atypical in presentation , EKG did not show any acute abnormality, had a cardiac catheterization done about 2 years ago according to the patient and her and it was normal. Had aortic valve replacement. Porcine valve. Bilateral pulmonary vein ablation and staple amputation of the left atrial appendage, she follows with a otm consultant in [place]. Had recent echocardiogram and it was reported to be normal. Patient has been having lower abdominal pain, cramps and diarrhea. She had upper and lower endoscopy. May did not see any pipe and tank fabricator. I recommended evaluation by pipe and tank fabricator at . She has extensive history. I will continue on current medication, I do not recommend any further cardiac testing at this time, she was monitored overnight and no significant abnormality was noted. Patient is anxious and asking to go home. I reassured her that she may be be discharged home today by cardiology opinion, I reviewed the current note, made minor adjustments and used Italic Font Clinical Quality Measures AMI/AHF: ASA po Prior to arrival: No DVT/VTE Risk/Contraindication: Risk Factor Score Per Nursin RFS Level Per Nursing on Admit: 2=Moderate SHERRON LUIS Aug 29, 2016 09:05 NÉSTOR LIZARRAGA MD Aug 29, 2016 15:55
[2016-08-29] MEDS ORDERED: KCL 20 MEQ TAB (K-DUR) PO NR (09:45)
[2016-08-29] MEDS ORDERED: ALPR0.5T7 PO (09:47)
[2016-08-29] MEDS ORDERED: DIPH1TAB25 PO (09:47)
[2016-08-29] MEDS ORDERED: CRAN450C PO (09:47)
[2016-08-29] MEDS ORDERED: ASCO-262 PO (09:47)
[2016-08-29] MEDS ORDERED: BRIN1S OD (09:47)
[2016-08-29] MEDS ORDERED: GABA-488 PO (09:52)
--- NOTE | 2016-08-29 10:25 | Discharge Instructions ---
Discharge Inst-[facility] Discharge Medications Continued Medications: Alosetron HCl (Lotronex) 0.5 Mg Tab 0.5 MG PO BID TAB Alprazolam (Alprazolam) 0.5 Mg Tablet 0.5 MG PO HS Ascorbate Calcium (Vitamin C) 500 Mg Tablet 500 MG PO DAILY TAB Aspirin (Adult Low Dose Aspirin EC) 81 Mg Tablet.dr 81 MG PO DAILY TAB Brinzolamide (Azopt) 10 Ml Btl 1 DROP OD BID Cholecalciferol (Vitamin D3) (Vitamin D3) 400 Unit Tablet 400 UNIT PO DAILY TAB Cranberry Fruit Concentrate (Cranberry) 450 Mg Capsule 450 MG PO BID CAP Cyanocobalamin (Vitamin B-12) (Vitamin B-12) 1,000 Mcg Tablet 1000 MCG PO DAILY TAB Dicyclomine HCl (Dicyclomine HCl) 20 Mg Tablet 20 MG PO BID TAB Diphenoxylate HCl/Atropine (Diphenoxylate-Atrop 2.5-0.025) 1 Each Tablet 1 TAB PO QID PRN DIARRHEA Esomeprazole Magnesium (Nexium) 40 Mg Cap 40 MG PO DAILY CAP Fluticasone Propionate (Flonase) 16 Gm Bern 1 SPRAY NS UD PRN CONGESTION GM Furosemide (Furosemide) 40 Mg Tablet 40 MG PO 1600 TAB Furosemide (Furosemide) 80 Mg Tablet 80 MG PO DAILY TAB Gabapentin (Gabapentin) 300 Mg Capsule 600 MG PO TID TAKES 2 (300 MG) CAPSULES CAP L.acidoph & Paracasei,B.lactis (Probiotic) 1 Each Capsule 1 CAP PO BID Loperamide HCl/Simethicone (Imodium Multi-Symptom Rel Cplt) 1 Each Tablet 1 TAB PO DAILY PRN DIARRHEA TAB Mycophenolate Sodium (Mycophenolic Acid) 360 Mg Tablet.dr 360 MG PO BID Polyethylene Glycol 3350 (Miralax) 17 Gm Powd.pack 17 GM PO DAILY PRN CONSTIPATION EACH Sertraline Hcl (Zoloft) 50 Mg Tablet 50 MG PO HS LAST FILLED 07/17/16 #30 Tacrolimus (Prograf) 1 Mg Capsule 1 MG PO BID Patient Instructions Goal/Follow Up Appt: Follow up with Rosas Caban APRN on 09/14/2016 at 0820. Someone from [facility] will call you about the referral to [facility] Return to The Hospital For: Inability to keep down medications/liquids, uncontrolled pain Activity & Diet Discharge Diet: No Restrictions Activity as Tolerated: Yes Copy Copies To 1: JUAN Gonzales BETHANY N MD Aug 29, 2016 10:25 am
--- NOTE | 2016-08-29 10:26 | Short Stay Summary ---
HPI History of Present Illness: Patient presented to ER after being seen at [facility] (formerly [facility]) where she was seen for chest pain. She had chest pain the night prior and wasn't particularly concerned, she has a lot of chronic pain, but it is usually in her abdomen. She thought she was stressed from life events and needed rest. She had recurrence in the morning, and her encouraged her to get checked out. She is having no chest pain currently and has a lot of lower abdominal pain with diarrhea for the last 6 months. She reports that she has had EGD and colonoscopy without significant pathology. She is on multiple medications to treat her diarrhea and possible IBS, but they have only helped minimally. She is somewhat tearful about her pain and feels some of her chest pain was related to stress. She follows with Cardiology in [facility], has had atrial fibrillation s/p ablation and aortic valve replacement with porcine valve. Date seen by provider: Aug 29, 2016 Time seen by provider: 10:15 Attending Physician Chanel Lawrence MD PCP Zehra Conroy DO Consult Date of Admission Aug 28, 2016 at 5:13 pm Home Medications Home Medications Reviewed patient Home Medication Reconciliation Form Allergies Coded Allergies: codeine (Unverified Allergy, Unknown, 04/01/15) morphine (Verified Allergy, Unknown, NAUSEA, 05/05/16) [id number] Hx Patient Social History Alcohol Use: Denies Use Recreational Drug Use: No Smoking Status: Never a Smoker 2nd Hand Smoke Exposure: No Recent Foreign Travel: No Contact w/other who traveled: No Recent Hopitalizations: No Recent Infectious Disease Expo: No Physical Abuse Screen: No Sexual Abuse: No Immunizations Up To Date Tetanus Booster (TDap): Unknown Date of Pneumonia Vaccine: Jun 18, 2014 Date of Influenza Vaccine: Mar 24, 2016 Past Medical History Past medical history 1. Aortic stenosis 2. Polycystic kidney disease 3. Depression 4. Hypertension 5. Hyperlipidemia 6. Paroxysmal atrial fibrillation 7. Diastolic dysfunction 8. 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 Gastroparesis Past surgical history 1. Tonsillectomy 2. Appendectomy 3. Hysterectomy 4. Right nephrectomy and transplant nephrectomy left 5. Aortic valve replacement with bilateral pulmonary vein ablation and staple amputation of the left atrial appendage Family Medical History Significant Family History: No Pertinent Family Hx Family History: Patient reports no known family medical history. Review of Systems ([facility]) Constitutional: No fever EENTM: no symptoms reported Respiratory: no symptoms reported Cardiovascular: see HPI Gastrointestinal: abdominal pain diarrhea Genitourinary: no symptoms reported Musculoskeletal: no symptoms reported Skin: no symptoms reported Psychiatric/Neurological: No Symptoms Reported Reviewed Test Results Reviewed Test Results Lab Laboratory Tests Test 08/28/16 12:00 08/28/16 12:59 08/28/16 18:15 08/29/16 06:14 Range/Units Activated Partial Thromboplast Time 33 24-35 SEC Alanine Aminotransferase (ALT/SGPT) 19 13 0-55 U/L Albumin 4.4 3.7 3.2-4.5 G/DL Alkaline Phosphatase 86 73 40-136 U/L Anion Gap 13 13 5-14 MMOL/L Aspartate Amino Transf (AST/SGOT) 33 19 5-34 U/L BUN/Creatinine Ratio 13 14 Basophils # (Auto) 0.0 0.0 0.0-0.1 10^3/uL Basophils (%) (Auto) 1 0 0-10 % Blood Urea Nitrogen 12 13 7-18 MG/DL Calcium Level 9.5 8.6 8.5-10.1 MG/DL Carbon Dioxide Level 24 20 L 21-32 MMOL/L Chloride Level 109 H 110 H 98-107 MMOL/L Creatine Kinase MB 0.8 <6.6 NG/ML Creatinine 0.90 0.91 0.60-1.30 MG/DL Eosinophils # (Auto) 0.1 0.1 0.0-0.3 10^3/uL Eosinophils (%) (Auto) 1 2 0-10 % Estimat Glomerular Filtration Rate > 60 > 60 Glucose Level 90 86 70-105 MG/DL Hematocrit 37 33 L 35-52 % Hemoglobin 13.3 11.9 11.5-16.0 G/DL INR Comment 1.0 0.8-1.4 Lymphocytes # (Auto) 1.4 1.0 1.0-4.0 X 10^3 Lymphocytes (%) (Auto) 25 22 12-44 % Magnesium Level 2.2 1.8-2.4 MG/DL Mean Corpuscular Hemoglobin 30 30 25-34 PG Mean Corpuscular Hemoglobin Concent 36 36 32-36 G/DL Mean Corpuscular Volume 83 83 80-99 FL Mean Platelet Volume 11.5 H 11.3 H 7.4-10.4 FL Monocytes # (Auto) 0.6 0.4 0.0-1.0 X 10^3 Monocytes (%) (Auto) 11 9 0-12 % Myoglobin 51.4 10.0-92.0 NG/ML Neutrophils # (Auto) 3.6 3.0 1.8-7.8 X 10^3 Neutrophils (%) (Auto) 64 66 42-75 % Platelet Count 207 158 130-400 10^3/uL Potassium Level 4.2 3.0 L 3.6-5.0 MMOL/L Prothrombin Time 13.1 12.2-14.7 SEC Red Blood Count 4.46 4.03 L 4.35-5.85 10^6/uL Red Cell Distribution Width 13.6 13.3 10.0-14.5 % Sodium Level 146 H 143 135-145 MMOL/L Total Bilirubin 1.3 H 1.3 H 0.1-1.0 MG/DL Total Creatine Kinase 52 29-168 U/L Total Protein 6.9 5.3 L 6.4-8.2 G/DL Troponin I < 0.30 < 0.30 <0.30 NG/ML White Blood Count 5.7 4.6 4.3-11.0 10^3/uL B-Type Natriuretic Peptide 149.9 H <100.0 PG/ML Cholesterol Level 212 H < 200 MG/DL HDL Cholesterol 29 L 40-60 MG/DL LDL Cholesterol Direct 154 H 1-129 MG/DL Triglycerides Level 155 H <150 MG/DL VLDL Cholesterol 31 5-40 MG/DL Physical Exam-([facility]) Physical Exam Vital Signs VS - Last 72 Hours, by Label 08/28/16 08/28/16 08/28/16 08/28/16 11:49 11:49 12:00 12:27 Temp 97.9 98.1 Pulse 65 Resp 24 B/P 149/74 Pulse Ox 100 100 O2 Delivery Room Air Room Air Room Air 08/28/16 08/28/16 08/28/16 08/28/16 17:32 18:00 20:00 20:22 Temp 98.1 97.2 Pulse 68 51 61 Resp 20 18 B/P 156/77 Pulse Ox 100 100 O2 Delivery Room Air Room Air 08/29/16 08/29/16 08/29/16 08/29/16 00:00 00:59 04:00 07:00 Temp 98.4 98.5 Pulse 60 66 67 64 Resp 20 16 B/P 122/58 145/78 Pulse Ox 99 99 O2 Delivery Room Air Room Air 08/29/16 08:56 Temp 98.0 Pulse 71 Resp 20 B/P 141/63 Pulse Ox 100 O2 Delivery Room Air Capillary Refill : Less Than 3 Seconds General Appearance: WD/WN no apparent distress Respiratory: chest non-tender lungs clear normal breath sounds Cardiovascular: regular rate, rhythm no edema no murmur Gastrointestinal: normal bowel sounds softNo guarding, No rebound, tenderness (bilateral LQ) Neurologic/Psychiatric: alert depressed affect Skin: normal color warm/dry Short Stay Diagnosis Discharge Diagnosis-Short Stay Admission Diagnosis 1. Chest pain 2. Abdominal pain/diarrhea Final Discharge Diagnosis 1. Chest pain- no acute EKG changes, Cardiology consulted and agreed not concerning for cardiac source 2. Abdominal pain/diarrhea- has had work-up in past without clear diagnosis, agree GI referral is reasonable, they would to see GI at [facility] where her other providers are, will place referral through clinic Conclusion Plan See final discharge diagnosis Clinical Quality Measures AMI/AHF: ASA po Prior to arrival: No DVT/VTE Risk/Contraindication: Risk Factor Score Per Nursin RFS Level Per Nursing on Admit: 2=Moderate Copy Copies To 1: JUAN Gonzales BETHANY N MD Aug 29, 2016 10:26
[2016-08-29 12:14] VITALS: BP 141/63
[2016-08-29] MEDS ORDERED: FUROSEMIDE 40 MG (LASIX) TAB PO SCH (16:00)
== END 2016-08-29 10:22 | disposition home or self-care (01) ==
LOC: EDUNIT# 11:49 → ER 11:52 → UNDOADMOB 17:13 → 4TH 17:13 → UNDODISOB 08-29 11:25
PROVIDERS: ADMIT Family Medicine; ATTEND Family Medicine
DX: R07.9 Chest pain, unspecified (principal); R19.7 Diarrhea, unspecified; R10.32 Left lower quadrant pain; F41.9 Anxiety disorder, unspecified; I10 Essential (primary) hypertension; I25.10 Atherosclerotic heart disease of native coronary artery without angina pectoris; N25.81 Secondary hyperparathyroidism of renal origin; Z94.0 Kidney transplant status; Z95.2 Presence of prosthetic heart valve; Z79.899 Other long term (current) drug therapy
CPT/HCPCS: 36415; 71010; 76705; 80053; 80061; 82550; 82553; 83735; 83874; 83880; 84484; 85025; 85610; 85730; 93005; 93041; 96374; G0378

== ENCOUNTER → 2017-01-03 | Outpatient (CLI) | payer MEDICARE, OTHER ==
[~2017-01-03] MED LIST changes: +ALPR0.5T7 PO; +ASCO-262 PO; +ASPI-479 PO; +CHOL400T PO; +CRAN450C PO; +CYAN10006 PO; +DICY20TA10 PO; +DIPH1TAB PO; +DIPH1TAB25 PO; +GABA-488 PO; +NF-ESOM40C PO; +NFALOSE0.5 PO
--- NOTE | 2017-01-03 19:34 | Diagnostic Imaging Report ---
EXAMINATION: Ultrasound of the left the upper outer aspect of the thigh. INDICATION: Mass. The patient had the lesion develop after a fall in November 2016. FINDINGS: There is heterogenous hypoechoic mass measuring 7.9 x 3.4 x 7.1 cm seen within the subcutaneous tissues of the upper lateral aspect of the thigh. There is no definite vascularity within this lesion with minimal color-flow, may relate to some tissue septations along the suspected hematoma. IMPRESSION: 7.9 cm heterogenous hypoechoic lesion along the upper outer aspect of the left thigh is favored to be a hematoma. If this is consistent with the clinical impression, then clinical followup is recommended. If there is clinical suspicion, or enlargement of this lesion, then evaluation with MRI or CT scan would be recommended. Dictated by: Dictated on workstation # [id number]
== END ==
LOC: RAD 13:54
PROVIDERS: ATTEND Nurse Practitioner Family
DX: S70.12XA Contusion of left thigh, initial encounter (principal); W19.XXXA Unspecified fall, initial encounter; Y99.8 Other external cause status
CPT/HCPCS: 76881

== ENCOUNTER 2017-02-12 10:33 | Outpatient (CLI) | payer MEDICARE, OTHER ==
[~2017-02-12] VITALS: Ht 154.9 cm; Wt 57.6 kg
[2017-02-12 10:58] VITALS: BP 116/66
[2017-02-12] MEDS ORDERED: ARIP2TAB3 PO (11:32)
[2017-02-12] MEDS ORDERED: CLON0.5T3 PO (11:32)
[2017-02-12] MEDS ORDERED: BACL10TA PO (11:32)
[2017-02-12] MEDS ORDERED: FAMO20TA3 PO (11:32)
[2017-02-12] MEDS ORDERED: POTA-51 PO (11:32)
[2017-02-12] MEDS ORDERED: VIT1TABL52 PO (11:32)
[2017-02-12] MEDS ORDERED: NFALOSE0.5 PO (11:32)
== END 2017-02-12 12:30 | disposition home or self-care (01) ==
LOC: PREOP 10:33
PROVIDERS: ATTEND Orthopaedic Surgery
DX: Z01.818 Encounter for other preprocedural examination (principal); S70.12XA Contusion of left thigh, initial encounter; X58.XXXA Exposure to other specified factors, initial encounter; Y99.8 Other external cause status
CPT/HCPCS: 87081

== ENCOUNTER 2017-02-14 10:50 | Day surgery (SDC) | payer MEDICARE, OTHER ==
--- NOTE | 2017-02-08 19:28 | HISTORY AND PHYSICAL ---
DATE OF SERVICE: DATE OF SURGERY: Outpatient surgery on 02/14/2017 for left hip hematoma excision. HISTORY OF PRESENT ILLNESS: The patient is a 66-year-old female who fell over 2 months ago, landing on her left buttock and hip. She had significant bruising initially and radiographs were negative. She has had persistent hematoma noted in the area with pain with sitting. She denies weakness and denies paraesthesias. She reports that the mass has decreased in size, but reports difficulty with sitting and lying down on the side. She denies redness, warmth and erythema. REVIEW OF SYSTEMS: No chest pain, no shortness of breath, no dysuria. PAST MEDICAL HISTORY: Hyperlipidemia, hypertension, neuropathy, polycystic kidney disease, hearing loss, vision loss, coronary valve disease, history of dialysis. PAST SURGICAL HISTORY: hysterectomy, tonsillectomy, kidney transplant, aortic valve replacement, left eye enucleation, bilateral nephrectomy, multiple fistula revisions, peritoneal shunt. FAMILY HISTORY: Significant for ischemic heart disease, stroke and Alzheimers. PRIMARY CARE: [facility]. MEDICATIONS: Furosemide, potassium, Calmoseptine, Azopt, aspirin, Famotidine, Flonase, Imodium, MiraLax, Mycophenolic, Nephro-Rodrick, Acidophilus, Tacrolimus, Gabapentin, Transderm, Alprazolam, cranberry, Hydroxyzine, Alosetron, Baclofen, Clonazepam, Abilify. ALLERGIES: CODEINE and MORPHINE. SOCIAL HISTORY: The patient denies alcohol or tobacco use. PHYSICAL EXAM: GENERAL: The patient is well-developed and well-nourished in no acute distress. HEENT: Normocephalic, atraumatic. Pupils are equal, round and reactive to light. Oropharynx is clear. NECK: Supple, no lymphadenopathy. LUNGS: Clear to auscultation bilaterally. HEART: Regular rate and rhythm. ABDOMEN: Soft, nontender, nondistended. EXTREMITIES: The left buttock demonstrates a mobile mass approximately 4 x 3 inches in size with 2 inches of elevation. There is no associated erythema or warm. No skin lesions are noted. She is tender in the area. There is firmness, but it is mobile. IMPRESSION: Left hip hematoma. PLAN: Left hip hematoma excision. The risks, benefits and options, ramifications and recovery were discussed. The patient understands and wishes to proceed. Job ID: [id number] DocumentID: [id number] Dictated Date: 02/08/2017 12:32:28 Folder Stitcher Operator Date: 02/08/2017 13:38:58 Dictated By: GIUSEPPE SONG MD
[~2017-02-14] VITALS: Ht 154.9 cm; Wt 57.6 kg
[2017-02-14 10:50] VITALS: BP 126/63
[~2017-02-14 10:50] MED LIST changes: +ARIP2TAB3 PO; +BACL10TA PO; +CLON0.5T3 PO; -METO-270 PO; +METO-387 PO; +POTA-51 PO
--- NOTE | 2017-02-14 11:20 | Progress Note-Pre Operative ---
Pre-Operative Progress Note H&P Reviewed The H&P was reviewed, patient examined and no changes noted. Date Seen by Provider: Feb 14, 2017 Time Seen by Provider: 11:20 Date H&P Reviewed: Feb 14, 2017 Time H&P Reviewed: 11:20 Pre-Operative Diagnosis: left thigh hematoma GIUSEPPE SONG MD Feb 14, 2017 11:20
--- NOTE | 2017-02-14 11:21 | Progress Note-Post Operative ---
Post-Operative Progess Note Surgeon (s)/Printing Worker Supervisor (s) Surgeon GIUSEPPE SONG MD Printing Worker Supervisor: Rey Mckee Pre-Operative Diagnosis left thigh hematoma Post-Operative Diagnosis left thigh hematoma Procedure & Operative Findings Date of Procedure 02/14/17 Procedure Performed/Findings removal of left thigh hematoma Anesthesia Type GETA Estimated Blood Loss Estimated blood loss (mL): minimal Specimens/Packing Specimens Removed none Packing: none GIUSEPPE SONG MD Feb 14, 2017 11:21
[2017-02-14] MEDS ORDERED: BUPIVACAINE 0.5% 30 ML (SENSORCAINE) VIAL ONE (11:23)
--- OUTSIDE RECORDS SUMMARY | 2017-02-14 11:23 | XMS REPORT | Clinical Summary ---
Author Author [facility] Organization [facility] Address Unknown Phone Unavailable Care Team Providers Care Psychology Clinician Name Role Phone PCP Unavailable Source Comments Some departments are not documenting in the electronic medical record. If you do not see the information that you expected, contact Release of Information in the Health Information Management department at [phone] for further assistance in locating additional records.[facility] Allergies Active Allergy Reactions Severity Noted Date Comments Codeine NAUSEA AND VOMITING 12/22/2010 Iodinated Contrast- Oral SEE COMMENTS Low 12/03/2015 Cannot have due to And Iv Dye transplant Morphine NAUSEA ONLY Low 05/21/2015 Current Medications Prescription Sig. Disp. Refills Start [...] Assessment & Plan: Impression: 1. 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 [...] (coronary artery disease) 12/22/2010 Chronic UTI 12/22/2010 Family History Relation Name Status Comments Daughter Alive Daughter Alive Father Maternal Grandfather Maternal Grandmother Mother Alive Paternal Grandfather Paternal Grandmother Sister Alive Son Alive Son Alive Social History Tobacco Use Types Packs/Day Years Used Date Never Smoker Smokeless Tobacco: Never Used Alcohol Use Drinks/Week oz/Week Comments No Sex Assigned at Date Recorded Not on file Last Filed Vital Signs Vital Sign Reading Time Taken Blood Pressure 122/62 06/05/2016 4:09 PM LEARNING AND DEVELOPMENT ANALYST Pulse 69 06/05/2016 4:09 PM LEARNING AND DEVELOPMENT ANALYST Temperature 36.5 C (97.7 F) 06/05/2016 4:09 PM LEARNING AND DEVELOPMENT ANALYST Respiratory Rate 17 06/05/2016 4:09 PM LEARNING AND DEVELOPMENT ANALYST Oxygen Saturation 99% 06/05/2016 4:09 PM LEARNING AND DEVELOPMENT ANALYST Inhaled Oxygen - - Concentration Weight 60.5 kg (133 lb 6.4 oz) 06/05/2016 4:09 PM LEARNING AND DEVELOPMENT ANALYST Height 154.9 cm (5' 0.98") 06/05/2016 4:09 PM LEARNING AND DEVELOPMENT ANALYST Body Mass Index 25.22 06/05/2016 4:09 PM LEARNING AND DEVELOPMENT ANALYST Plan of Treatment Health Maintenance Due Date Last Done Comments HEPATITIS C SCREENING 1950 PHYSICAL (COMPREHENSIVE) 1957 EXAM PERTUSSIS VACCINE 1961 TETANUS VACCINE 1967 BREAST CANCER SCREENING 1990 COLORECTAL CANCER 2000 SCREENING SHINGLES VACCINE 2010 OSTEOPOROSIS SCREENING 2015 PREVNAR/PNEUMOVAX (#1) 2015 INFLUENZA VACCINE 02/16/2017 Results Not on filefrom Last 3 Months
--- OUTSIDE RECORDS SUMMARY | 2017-02-14 11:24 | XMS REPORT ---
Author Author GEOVANNI UGALDE Organization [employer] Address Unknown Phone Unavailable Care Team Providers Care Supervisor Records Change Name Role Phone GEOVANNI UGALDE CP Unavailable Allergies No Known Allergies Problems Problem Type Condition Code Onset Dates Condition Status Problem Depressive disorder, not elsewhere classified F32.9 Active Problem Routine adult health maintenance V70.0 Active Problem CHF (congestive heart failure) I50.9 Active Problem Polycystic kidney disease 753.12 Active Assessment Depressive disorder, not elsewhere classified F32.9 Active Problem History of kidney transplant V42.0 Active Problem H/O aortic valve replacement V43.3 Active Medications No Known Medications Procedures Procedure Coding System Code Date Psychotherapy, patient &/family, 45 minutes, established patient CPT-4 95861 Jun 04, 2015 [facility] VISIT MENTAL HEALTH ESTAB PT CPT-4 G0470 Jun 04, 2015 Results No Known Results Summary Purpose [employer] Submission
--- OUTSIDE RECORDS SUMMARY | 2017-02-14 11:24 | XMS REPORT ---
Author Author ANGELINE GUZMAN Organization [employer] Address Unknown Phone Unavailable Care Team Providers Care Belt Brander Name Role Phone ANGELINE GUZMAN CP Unavailable Allergies No Known Allergies Problems Problem Type Condition Code Onset Dates Condition Status Problem Routine health maintenance Z00.00 Active Problem Accessory skin tags Q82.8 Active Problem HTN (hypertension) I10 Active Problem Helicobacter pylori (H. pylori) infection A04.8 Active Problem Peptic ulcer disease K27.9 Active Problem Pain with urination R30.9 Active Problem 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 Problem Anxiety F41.9 Active Problem Major depression, chronic F32.9 Active Problem Hearing loss, bilateral H91.93 Active Problem CHF (congestive heart failure) I50.9 Active Problem Depression F32.9 Active Problem History of PCOS Z87.42 Active Problem Neuropathy G62.9 Active Problem History of aortic valve replacement Z95.2 Active Problem GERD (gastroesophageal reflux disease) K21.9 Active Problem History of renal transplant Z94.0 Active Medications Medication Code System Code Instructions Start Date End Date Status Dosage Alprazolam [facility] [address]-69 0.5 MG Orally Once a day at bedtime 1 tablet Results No Known Results Summary Purpose [employer] Submission
--- OUTSIDE RECORDS SUMMARY | 2017-02-14 11:24 | XMS REPORT ---
Author Author ANGELINE GUZMAN Organization [employer] Address Unknown Phone Unavailable Care Team Providers Care Proposal Engineer Name Role Phone ANGELINE GUZMAN CP Unavailable Allergies, Adverse Reactions, Alerts Substance Reaction Event Type Morphine Sulfate Info Not Available Drug Allergy Codeine Sulfate Info Not Available Drug Allergy Problems Problem Type Condition Code Onset Dates [...] Active Problem Hearing loss, bilateral H91.93 Active Assessment Acute cystitis with hematuria N30.01 Active Problem CHF (congestive heart failure) I50.9 Active Assessment History of renal transplant Z94.0 Active Problem Depression F32.9 Active Problem History of PCOS Z87.42 Active Problem Neuropathy G62.9 Active Problem History of aortic valve replacement Z95.2 Active Problem GERD (gastroesophageal reflux disease) K21.9 Active Problem History of renal transplant Z94.0 Active Medications Medication Code System Code Instructions Start Date End Date Status Dosage Bactrim DS [facility][NOTE 3] [address]-73 800-160 MG Orally Twice a day Apr 06, 2016 Apr 13, 2016 1 tablet Procedures Procedure Coding System Code Date [facility] V[facility] ESTABLISHED PATIENT CPT-4 G0467 Apr 06, 2016 Office Visit, Est Pt., Level 3 CPT-4 44948 Apr 06, 2016 LAB NOT BILLED BY [facility] CPT-4 NOBLL Apr 06, 2016 URINALYSIS, AUTO, W/O SCOPE CPT-4 96175 Apr 06, 2016 Vital Signs Date/Time: Apr 06, 2016 Cardiac Monitoring Heart Rate 80 bpm Weight 128 lbs Height 61.5 in BMI 23.79 Index Blood Pressure Diastolic 70 mmHg Blood Pressure Systolic 110 mmHg Results Name Result Date Reference Range Unit Abnormality Flag UA LONG DIP (IN HOUSE) ----IMANI 1+ 20160406 ----NIT positive 20160406 ----SG <=1.005 20160406 ----KET negative 20160406 ----JOSE negative 20160406 ----GLU trace 20160406 ----Odor none 20160406 ----pH 5.0 20160406 ----BLO trace-intact 20160406 ----URO 1.0 20160406 ----Protein 1+ 20160406 ----Lot # [id number] ----Exp date 20160406 ----Clarity clear 20160406 ----Color yellow 20160406 Summary Purpose [employer] Submission
--- OUTSIDE RECORDS SUMMARY | 2017-02-14 11:24 | XMS REPORT ---
Author ROGER Orona [employer] Address Unknown Phone Unavailable Care Team Providers Care Market Relationship Manager Name Role Phone ROGER HERNANDEZ Unavailable Allergies, Adverse Reactions, Alerts Substance Reaction Event Type Codeine Sulfate Info Not Available Drug Allergy Problems Problem Type Condition Code Onset Dates Condition Status Assessment Polycystic kidney disease 753.12 Active Problem History of kidney transplant V42.0 Active Problem H/O aortic valve replacement V43.3 Active Problem Routine adult health maintenance V70.0 Active Assessment History of kidney transplant V42.0 Active Assessment H/O aortic valve replacement V43.3 Active Problem Polycystic kidney disease 753.12 Active Assessment Routine adult health maintenance V70.0 Active Medications Medication Code System Code Instructions Start Date End Date Status Dosage Flonase [facility] [address]-11 50 MCG/ACT Nasally Once a day as needed 1 spray in each nostril Estradiol [facility] [address]-91 1 MG Orally Once a day 1 tablet Alprazolam [facility] [address]-49 0.5 MG Orally Once a day at bedtime 1 tablet MiraLax [facility] [address]-76 17 gm/dose Orally Once a day as needed 17 grams mixed in 8 oz of water or juice Amiodarone HCl [facility] [address]-93 200 MG Orally 2 times a day 1 tablet Tacrolimus [facility] [address]-99 1 MG Orally Twice a day not defined Famotidine [facility] [address]-94 20 MG Orally Once a day 1 tablet at bedtime Sertraline HCl [facility] [address]-55 25 MG Orally Once a day 1 tablet Probiotic [facility] 76423-[address]17 1 Orally Once a day not defined Nephro-Rodrick Rx [facility] [address]-81 1 MG Orally Once a day 1 tablet Mycophenolic Acid [facility] [address]-84 360 MG Orally Twice a day 1 tablets on an empty stomach Aspirin [facility] [address]-06 81 MG Orally 2 times a day 1 tablet Azopt [facility] [address]-47 1 % Ophthalmic Once a day 1 drop into affected eye Metoprolol Tartrate [facility] [address]-94 25 MG Orally Twice a day 1 tablet Pravastatin Sodium [facility] [address]-13 20 MG Orally Once a day 1 tablet Gabapentin [facility] [address]-67 600 MG Orally 3 times a day 1 tablet Imodium A-D [facility] [address]-49 2 MG Orally 8 time(s) a day as needed 1 tablet Ovalo 3 [facility] 23[address]40 1000 MG Orally Once a day 1 capsule Procedures Procedure Coding System Code Date Office Visit, New Pt., Level 4 CPT-4 93453 Mar 17, 2015 [facility] VISIT NEW PATIENT CPT-4 G0466 Mar 17, 2015 Vital Signs Date/Time: Mar 17, 2015 Temperature 98.1 F Weight 138.3 lbs Height 61.5 in BMI 25.71 Index Blood Pressure Diastolic 76 mmHg Blood Pressure Systolic 124 mmHg Cardiac Monitoring Heart Rate 70 bpm Results No Known Results Summary Purpose [employer] Submission
--- OUTSIDE RECORDS SUMMARY | 2017-02-14 11:24 | XMS REPORT ---
Author Author ANGELINE GUZMAN Organization [employer] Address Unknown Phone Unavailable Care Team Providers Care Orthodontic Laboratory Technician Name Role Phone ANGELINE GUZMAN CP Unavailable [...] Start Date End Date Status Dosage Alprazolam [facility] [address]-94 0.5 MG Orally Once a day at bedtime 1 tablet Results No Known Results Summary Purpose [employer] Submission
--- OUTSIDE RECORDS SUMMARY | 2017-02-14 11:24 | XMS REPORT ---
Author ROGER Orona eClinicalWorks Address Unknown Phone Unavailable Care Team Providers Care Seismic Observer Name Role Phone ROGER HERNANDEZ Unavailable Allergies, Adverse Reactions, Alerts Substance Reaction Event Type Codeine Sulfate Info Not Available Drug Allergy Problems Problem Type Condition Code Onset Dates Condition Status Problem Routine adult health maintenance V70.0 Active Problem History of kidney transplant V42.0 Active Problem Depressive disorder, not elsewhere classified F32.9 Active Assessment Muscle weakness M62.81 Active Assessment Depressive disorder, not elsewhere classified F32.9 Active Problem H/O aortic valve replacement V43.3 Active Problem Polycystic kidney disease 753.12 Active Medications Medication Code System Code Instructions Start Date End Date Status Dosage Tacrolimus [facility] [address]-66 1 MG Orally Twice a day not defined Famotidine [facility] [address]-15 20 MG Orally Once a day 1 tablet at bedtime Aspirin [facility] [address]-70 81 MG Orally 2 times a day 1 tablet Pravastatin Sodium [facility] [address]-34 20 MG Orally Once a day 1 tablet Imodium A-D [facility] [address]-77 2 MG Orally 8 time(s) a day as needed 1 tablet Sertraline HCl [facility] [address]-88 25 MG Orally Once a day 1 tablet Probiotic [facility] 56633-09040 1 Orally Once a day not defined Amiodarone HCl [facility] [address]-24 200 MG Orally 2 times a day 1 tablet [place] 3 [facility] [address]1839 1000 MG Orally Once a day 1 capsule Mycophenolic Acid [facility] [address]-17 360 MG Orally Twice a day 1 tablets on an empty stomach MiraLax [facility] [address]-77 17 gm/dose Orally Once a day as needed 17 grams mixed in 8 oz of water or juice Flonase [facility] [address]-08 50 MCG/ACT Nasally Once a day as needed 1 spray in each nostril Alprazolam [facility] [address]-33 0.5 MG Orally Once a day at bedtime 1 tablet Lasix [facility] [address]-39 20 MG Orally Once a day 1 tablet Metoprolol Tartrate [facility] [address]-55 25 MG Orally Twice a day 1 tablet Nephro-Rodrick Rx [facility] [address]-27 1 MG Orally Once a day 1 tablet Estradiol [facility] [address]-41 1 MG Orally Once a day 1 tablet Azopt [facility] [address]-38 1 % Ophthalmic Once a day 1 drop into affected eye Gabapentin [facility] [address]-04 600 MG Orally 3 times a day 1 tablet Procedures Procedure Coding System Code Date Office Visit, Est Pt., Level 3 CPT-4 09254 Mar 25, 2015 [facility] VISIT ESTABLISHED PATIENT CPT-4 G0467 Mar 25, 2015 Vital Signs Date/Time: Mar 25, 2015 Temperature 98.4 F Weight 138.1 lbs Height 61.5 in BMI 25.67 Index Blood Pressure Diastolic 62 mmHg Blood Pressure Systolic 118 mmHg Cardiac Monitoring Heart Rate 68 bpm Results No Known Results Summary Purpose eClinicalWorks Submission
--- OUTSIDE RECORDS SUMMARY | 2017-02-14 11:25 | XMS REPORT ---
Author Author ANGELINE GUZMAN Organization e[employer] Address Unknown Phone Unavailable Care Team Providers Care First Line Production Supervisor Name Role Phone ANGELINE GUZMAN CP Unavailable Allergies, Adverse Reactions, Alerts Substance Reaction Event Type Morphine Sulfate Info Not Available Drug Allergy Codeine Sulfate Info Not Available Drug Allergy Problems Problem Type Condition Code Onset Dates Condition Status Assessment Skin tag L91.8 Active Problem Neuropathy G62.9 Active Problem CHF (congestive heart failure) I50.9 Active Assessment Elective procedure for unacceptable cosmetic appearance Z41.1 Active Problem Routine health maintenance Z00.00 Active Problem History of renal transplant Z94.0 Active Problem HTN (hypertension) I10 Active Problem Depression F32.9 Active Problem GERD (gastroesophageal reflux disease) K21.9 Active Problem History of aortic valve replacement Z95.2 Active Problem History of PCOS Z87.42 Active Medications Medication Code System Code Instructions Start Date End Date Status Dosage Aspirin [facility] [address]-22 81 MG Orally 2 times a day 1 tablet Famotidine [facility] [address]-46 20 MG Orally Once a day 1 tablet at bedtime Nephro-Rodrick Rx [facility] [address]-71 1 MG Orally Once a day 1 tablet Mycophenolic Acid [facility] [address]-94 360 MG Orally Twice a day 1 tablets on an empty stomach Furosemide [facility] [address]-07 80 MG Orally Once a day TAKE ONE TABLET BY MOUTH ONCE DAILY [place] 3 [facility] [address] 1000 MG Orally Once a day 1 capsule Sertraline HCl [facility] [address]-69 25 MG Orally Once a day 1 tablet Tacrolimus [facility] [address]-17 1 MG Orally Twice a day not defined Probiotic [facility] 82706-[address]353 1 Orally Once a day not defined Flonase [facility] [address]-19 50 MCG/ACT Nasally Once a day as needed 1 spray in each nostril Imodium A-D [facility] [address]-17 2 MG Orally 8 time(s) a day as needed 1 tablet Calmoseptine [facility] [address]-02 0.44-20.6 % Externally Once a day Jul 20, 2015 apply 1 inch to affected area Azopt [facility] [address]-14 1 % Ophthalmic 2 times a day 1 drop OD twice a day MiraLax [facility] [address]-92 17 gm/dose Orally Once a day as needed 17 grams mixed in 8 oz of water or juice Alprazolam [facility] [address]-74 0.5 MG Orally Once a day at bedtime 1 tablet Gabapentin [facility] 65641675483 300 MG TAKE TWO CAPSULES BY MOUTH THREE TIMES DAILY Potassium Chloride [facility] [address]-75 20 MEQ Orally Once a day 1 tab Amiodarone HCl [facility] [address]-08 100 MG Orally Once a day 1 tablet Procedures Procedure Coding System Code Date Office Visit, Est Pt., Level 3 CPT-4 25116 Jul 20, 2015 [facility] EST[facility] PATIENT CPT-4 G0467 Jul 20, 2015 Vital Signs Date/Time: Jul 20, 2015 Temperature 98.4 F Weight 125.1 lbs Height 61.5 in BMI 23.25 Index Blood Pressure Diastolic 52 mmHg Blood Pressure Systolic 108 mmHg Cardiac Monitoring Heart Rate 64 bpm Results No Known Results Summary Purpose eClinicalWorks Submission
--- OUTSIDE RECORDS SUMMARY | 2017-02-14 11:25 | XMS REPORT ---
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
--- OUTSIDE RECORDS SUMMARY | 2017-02-14 11:25 | XMS REPORT ---
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 Problem Anxiety F41.9 Active Problem Hearing loss, bilateral H91.93 Active Problem Routine health maintenance Z00.00 Active Problem History of renal transplant Z94.0 Active Problem Accessory skin tags Q82.8 Active Problem HTN (hypertension) I10 Active Problem CHF (congestive heart failure) I50.9 Active Problem Neuropathy G62.9 Active Problem GERD (gastroesophageal reflux disease) K21.9 Active Medications Medication Code System Code Instructions Start Date End Date Status Dosage Alprazolam [facility] [address]-24 0.5 MG Orally Once a day at bedtime MUST HAVE APPT FOR REFILL 1 tablet Results No Known Results Summary Purpose eClinicalWorks Submission
--- OUTSIDE RECORDS SUMMARY | 2017-02-14 11:25 | XMS REPORT ---
Author Author ANGELINE GUZMAN Organization eClinical[employer] Address Unknown Phone Unavailable Care Team Providers Care Reimbursement Auditor Name Role Phone ANGELINE GUZMAN CP Unavailable Allergies, Adverse Reactions, Alerts Substance Reaction Event Type Morphine Sulfate Info Not Available Drug Allergy Codeine Sulfate Info Not Available Drug Allergy Problems Problem Type Condition Code Onset Dates Condition Status Problem Routine health maintenance Z00.00 Active Problem Accessory skin tags Q82.8 Active Problem HTN (hypertension) I10 Active Problem Helicobacter pylori (H. 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 pylori) infection A04.8 Active Problem Depression F32.9 Active Problem History of PCOS Z87.42 Active Problem Neuropathy G62.9 Active Problem History of aortic valve replacement Z95.2 Active Problem GERD (gastroesophageal reflux disease) K21.9 Active Problem History of renal transplant Z94.0 Active Medications Medication Code System Code Instructions Start Date End Date Status Dosage Zoloft [facility] [address]-19 25 MG Orally Once a day Mar 22, 2016 1 tablet Lomotil [facility] [address]-59 2.5-0.025 MG Orally Four times a day Mar 11, 2016 1 tablet as needed Potassium Chloride [facility] [address]-92 20 MEQ Orally Once a day 1 tab Azopt [facility] [address]-91 1 % Ophthalmic 2 times a day 1 drop OD twice a day Gabapentin [facility] 03413554875 300 MG TAKE TWO CAPSULES BY MOUTH THREE TIMES DAILY Imodium A-D [facility] [address]-08 2 MG Orally 8 time(s) a day as needed 1 tablet Esomeprazole Magnesium [facility] [address]-88 40 mg Orally Once a day Mar 06, 2016 1 capsule Nephro-Rodrick Rx [facility] [address]-08 1 MG Orally Once a day 1 tablet Aspirin [facility] [address]-02 81 MG Orally 2 times a day 1 tablet Alprazolam [facility] [address]-76 0.5 MG Orally Once a day at bedtime 1 tablet Tacrolimus [facility] [address]-97 1 MG Orally Twice a day not defined Flonase [facility] [address]-68 50 MCG/ACT Nasally Once a day as needed 1 spray in each nostril Famotidine [facility] [address]-39 20 MG Orally Once a day 1 tablet at bedtime MiraLax [facility] [address]-29 17 gm/dose Orally Once a day as needed 17 grams mixed in 8 oz of water or juice Probiotic [facility] 20[address] 1 Orally 2 times a day not defined Furosemide [facility] [address]-98 40 mg Orally 2 times a day (morning and afternoon) 1 tablet Calmoseptine [facility] [address]-80 0.44-20.6 % Externally Once a day Jul 20, 2015 apply 1 inch to affected area Mycophenolic Acid [facility] [address]-20 360 MG Orally Twice a day 1 tablets on an empty stomach Procedures Procedure Coding System Code Date SINGLE IMMUNIZATION ADMIN CPT-4 75045 Mar 28, 2016 [facility] VISIT ESTABLISHED PATIENT CPT-4 G0467 Mar 28, 2016 FLUARIX QUAD P-FREE 3 AND UP .50 2015 CPT-4 57220 Mar 28, 2016 Office Visit, Est Pt., Level 3 CPT-4 54905 Mar 28, 2016 Vital Signs Date/Time: Mar 28, 2016 Cardiac Monitoring Heart Rate 76 bpm Weight 133.0 lbs Height 61.5 in BMI 24.72 Index Blood Pressure Diastolic 72 mmHg Blood Pressure Systolic 112 mmHg Results No Known Results Immunizations Vaccine Administration Date FLUARIX QUAD P-FREE 3 AND UP .50 2015Mar 28, 2016 Summary Purpose eClinicalWorks Submission
--- OUTSIDE RECORDS SUMMARY | 2017-02-14 11:25 | XMS REPORT ---
Author Author ANGELINE GUZMAN Organization eClinicalWorks Address Unknown Phone Unavailable Care Team Providers Care Employment Interviewer Name Role Phone ANGELINE GUZMAN CP Unavailable Allergies, Adverse Reactions, Alerts Substance Reaction Event Type Morphine Sulfate Info Not Available Drug Allergy Codeine Sulfate Info Not Available Drug Allergy Problems Problem Type Condition Code Onset Dates Condition Status Problem History of PCOS Z87.42 Active Problem History of renal transplant Z94.0 Active Problem History of aortic valve replacement Z95.2 Active Problem Hearing loss, bilateral H91.93 Active Problem 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 Problem Major depression, chronic F32.9 Active Problem HTN (hypertension) I10 Active Problem Routine health maintenance Z00.00 Active Problem Anxiety F41.9 Active Problem Accessory skin tags Q82.8 Active Assessment Anxiety F41.9 Active Assessment Depression F32.9 Active Problem CHF (congestive heart failure) I50.9 Active Problem Neuropathy G62.9 Active Assessment Acute cystitis with hematuria N30.01 Active Problem GERD (gastroesophageal reflux disease) K21.9 Active Assessment Pain with urination R30.9 Active Problem Depression F32.9 Active Medications Medication Code System Code Instructions Start Date End Date Status Dosage Potassium Chloride [facility] [address]-06 20 MEQ Orally Once a day 1 tab Calmoseptine [facility] [address]-32 0.44-20.6 % Externally Once a day Jul 20, 2015 apply 1 inch to affected area Famotidine [facility] [address]-51 20 MG Orally Once a day 1 tablet at bedtime Gabapentin [facility] 66658115272 300 MG TAKE TWO CAPSULES BY MOUTH THREE TIMES DAILY [place] 3 [facility] [address]14 1000 MG Orally Once a day 1 capsule Ciprofloxacin HCl [facility] [address]-60 250 MG Orally every 12 hrs Jan 28, 2016 Feb 02, 2016 1 tablet Flonase [facility] [address]-27 50 MCG/ACT Nasally Once a day as needed 1 spray in each nostril Probiotic [facility] 18137-76050 1 Orally Once a day not defined Tacrolimus [facility] [address]-75 1 MG Orally Twice a day not defined Nephro-Rodrick Rx [facility] [address]-89 1 MG Orally Once a day 1 tablet Imodium A-D [facility] [address]-65 2 MG Orally 8 time(s) a day as needed 1 tablet Alprazolam [facility] [address]-59 0.5 MG Orally Once a day at bedtime MUST HAVE APPT FOR REFILL 1 tablet Furosemide [facility] [address]-28 40 mg Orally 2 times a day (morning and afternoon) 1 tablet MiraLax [facility] [address]-59 17 gm/dose Orally Once a day as needed 17 grams mixed in 8 oz of water or juice Aspirin [facility] [address]-18 81 MG Orally 2 times a day 1 tablet Azopt [facility] [address]-05 1 % Ophthalmic 2 times a day 1 drop OD twice a day Mycophenolic Acid [facility] [address]-28 360 MG Orally Twice a day 1 tablets on an empty stomach Procedures Procedure Coding System Code Date LAB NOT BILLED BY [facility] CPT-4 NOBLL Jan 28, 2016 [facility] VISIT ESTABLISHED PATIENT CPT-4 G0467 Jan 28, 2016 URINALYSIS, AUTO, W/O SCOPE CPT-4 62806 Jan 28, 2016 Office Visit, Est Pt., Level 4 CPT-4 07936 Jan 28, 2016 Vital Signs Date/Time: Jan 28, 2016 Cardiac Monitoring Heart Rate 80 bpm Weight 130.4 lbs Height 61.5 in BMI 24.24 Index Blood Pressure Diastolic 52 mmHg Blood Pressure Systolic 100 mmHg Results No Known Results Summary Purpose eClinicalWorks Submission
--- OUTSIDE RECORDS SUMMARY | 2017-02-14 11:25 | XMS REPORT ---
Author Author VIVIAN ALLEN [facility] eClinicalWorks Address Unknown Phone Unavailable Care Team Providers Care Childcare Attendant Name Role Phone VIVIAN ALLEN CP Unavailable Allergies, Adverse Reactions, Alerts Substance [...] Problem Accessory skin tags Q82.8 Active Problem CHF (congestive heart failure) I50.9 Active Problem Neuropathy G62.9 Active Assessment Acute cystitis with hematuria N30.01 Active Problem GERD (gastroesophageal reflux disease) K21.9 Active Assessment Dysuria R30.0 Active Problem Depression F32.9 Active Medications Medication Code System Code Instructions Start Date End Date Status Dosage Famotidine [facility] [address]-10 20 MG Orally Once a day 1 tablet at bedtime [place] 3 [facility] [address]95 1000 MG Orally Once a day 1 capsule Imodium A-D [facility] [address]-64 2 MG Orally 8 time(s) a day as needed 1 tablet Potassium Chloride [facility] [address]-45 20 MEQ Orally Once a day 1 tab Flonase [facility] [address]-47 50 MCG/ACT Nasally Once a day as needed 1 spray in each nostril Bactrim DS [facility] [address]-50 800-160 MG Orally Twice a day Feb 10, 2016 Feb 15, 2016 1 tablet Mycophenolic Acid [facility] [address]-75 360 MG Orally Twice a day 1 tablets on an empty stomach Alprazolam [facility] [address]-67 0.5 MG Orally Once a day at bedtime MUST HAVE APPT FOR REFILL 1 tablet Calmoseptine [facility] [address]-02 0.44-20.6 % Externally Once a day Jul 20, 2015 apply 1 inch to affected area Probiotic [facility] 88631-41861 1 Orally Once a day not defined Tacrolimus [facility] [address]-03 1 MG Orally Twice a day not defined Azopt [facility] [address]-50 1 % Ophthalmic 2 times a day 1 drop OD twice a day Aspirin [facility] [address]-44 81 MG Orally 2 times a day 1 tablet Gabapentin [facility] 22807103467 300 MG TAKE TWO CAPSULES BY MOUTH THREE TIMES DAILY Furosemide [facility] [address]-16 40 mg Orally 2 times a day (morning and afternoon) 1 tablet Nephro-Rodrick Rx [facility] [address]-10 1 MG Orally Once a day 1 tablet MiraLax [facility] [address]-91 17 gm/dose Orally Once a day as needed 17 grams mixed in 8 oz of water or juice Procedures Procedure Coding System Code Date [facility] VISIT ESTABLISHED PATIENT CPT-4 G0467 Feb 10, 2016 Office Visit, Est Pt., Level 3 CPT-4 79195 Feb 10, 2016 URINALYSIS, AUTO, W/O SCOPE CPT-4 46809 Feb 10, 2016 [facility] CPT-4 NOBLL Feb 10, 2016 Vital Signs Date/Time: Feb 10, 2016 Cardiac Monitoring Heart Rate 86 bpm Weight 132 lbs Height 61.5 in BMI 24.53 Index Blood Pressure Diastolic 64 mmHg Blood Pressure Systolic 102 mmHg Results No Known Results Summary Purpose eClinicalWorks Submission
--- OUTSIDE RECORDS SUMMARY | 2017-02-14 11:26 | XMS REPORT ---
Author Author ANGELINE GUZMAN Organization eClinicalWorks Address Unknown Phone Unavailable Care Team Providers Care Refrigerating Oiler Name Role Phone ANGELINE GUZMAN CP Unavailable [...] History of renal transplant Z94.0 Active Medications No Known Medications Results No Known Results Summary Purpose eClinicalWorks Submission
--- OUTSIDE RECORDS SUMMARY | 2017-02-14 11:26 | XMS REPORT ---
Author Author ANGELINE GUZMAN Organization eClinical[employer] Address Unknown Phone Unavailable Care Team Providers Care Maintainer Operator Name Role Phone ANGELINE GUZMAN CP Unavailable Allergies No Known Allergies Problems Problem Type Condition Code Onset Dates Condition Status Problem HTN (hypertension) I10 Active Problem Anxiety F41.9 Active Problem Accessory skin tags Q82.8 Active Problem Pain with urination R30.9 Active Problem Helicobacter pylori (H. 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 Problem Peptic ulcer disease K27.9 Active Problem Major depression, chronic F32.9 Active Problem CHF (congestive heart failure) I50.9 Active Problem Neuropathy G62.9 Active Assessment Irritable bowel syndrome with diarrhea K58.0 Active Problem History of PCOS Z87.42 Active Problem History of aortic valve replacement Z95.2 Active Problem GERD (gastroesophageal reflux disease) K21.9 Active Problem History of renal transplant Z94.0 Active Problem Depression F32.9 Active Problem Routine health maintenance Z00.00 Active Medications Medication Code System Code Instructions Start Date End Date Status Dosage Lomotil [facility] 25928046454 2.5-0.025 MG Orally Four times a day TAKE ONE TABLET BY MOUTH NEEDED FOUR TIMES DAILY Bentyl [facility] [address]-24 10 mg Orally 3 times a day Apr 27, 2016 May 27, 2016 1 capsule Results No Known Results Summary Purpose eClinicalWorks Submission
--- OUTSIDE RECORDS SUMMARY | 2017-02-14 11:26 | XMS REPORT ---
Author Author ANGELINE GUZMAN Organization [employer] Address Unknown Phone Unavailable Care Team Providers Care Process Controller Name Role Phone ANGELINE GUZMAN CP Unavailable [...] Problem Hearing loss, bilateral H91.93 Active Assessment Pain with urination R30.9 Active Problem CHF (congestive heart failure) I50.9 Active Assessment Acute cystitis with hematuria N30.01 Active Assessment Helicobacter pylori (H. pylori) infection A04.8 Active Problem Depression F32.9 Active Problem History of PCOS Z87.42 Active Problem Neuropathy G62.9 Active Problem History of aortic valve replacement Z95.2 Active Problem GERD (gastroesophageal reflux disease) K21.9 Active Problem History of renal transplant Z94.0 Active Medications Medication Code System Code Instructions Start Date End Date Status Dosage Calmoseptine [facility] [address]-75 0.44-20.6 % Externally Once a day Jul 20, 2015 apply 1 inch to affected area Aspirin [facility] [address]-62 81 MG Orally 2 times a day 1 tablet Potassium Chloride [facility] [address]-78 20 MEQ Orally Once a day 1 tab Mycophenolic Acid [facility] [address]-93 360 MG Orally Twice a day 1 tablets on an empty stomach Flonase [facility] [address]-49 50 MCG/ACT Nasally Once a day as needed 1 spray in each nostril Nephro-Rodrick Rx [facility] [address]-37 1 MG Orally Once a day 1 tablet Gabapentin [facility] 23906231107 300 MG TAKE TWO CAPSULES BY MOUTH THREE TIMES DAILY Probiotic [facility] [address]18 1 Orally Once a day not defined Furosemide [facility] [address]-26 40 mg Orally 2 times a day (morning and afternoon) 1 tablet Famotidine [facility] [address]-46 20 MG Orally Once a day 1 tablet at bedtime Alprazolam [facility] [address]-76 0.5 MG Orally Once a day at bedtime 1 tablet Doxycycline Monohydrate [facility] [address]-21 100 MG Orally every 12 hrs Mar 16, 2016 Mar 21, 2016 1 tablet Metronidazole [facility] [address]-02 500 MG Orally Twice a day Mar 16, 2016 Mar 21, 2016 1 tablet Lomotil [facility] [address]-61 2.5-0.025 MG Orally Four times a day Mar 11, 2016 1 tablet as needed Esomeprazole Magnesium [facility] [address]-89 40 mg Orally Once a day Mar 06, 2016 1 capsule MiraLax [facility] [address]-13 17 gm/dose Orally Once a day as needed 17 grams mixed in 8 oz of water or juice Imodium A-D [facility] [address]-62 2 MG Orally 8 time(s) a day as needed 1 tablet Bactrim DS [facility] [address]-99 800-160 MG Orally Twice a day Mar 16, 2016 Mar 21, 2016 1 tablet Tacrolimus [facility] [address]-82 1 MG Orally Twice a day not defined Azopt [facility] [address]-93 1 % Ophthalmic 2 times a day 1 drop OD twice a day [place] 3 [facility] [address]59 1000 MG Orally Once a day 1 capsule Procedures Procedure Coding System Code Date [facility] VISIT ESTABLISHED PATIENT CPT-4 G0467 Mar 16, 2016 Office Visit, Est Pt., Level 3 CPT-4 72521 Mar 16, 2016 URINALYSIS, AUTO, W/O SCOPE CPT-4 67381 Mar 16, 2016 Vital Signs Date/Time: Mar 16, 2016 Cardiac Monitoring Heart Rate 72 bpm Weight 132.7 lbs Height 61.5 in BMI 24.66 Index Blood Pressure Diastolic 78 mmHg Blood Pressure Systolic 110 mmHg Results Name Result Date Reference Range Unit Abnormality Flag UA LONG DIP (IN HOUSE) ----pH 5.5 [id number] ----BLO trace-lysed [id number] ----SG <1.005 [id number] ----KET neg [id number] ----JOSE neg [id number] ----URO 0.2 [id number] ----Protein neg [id number] ----IMANI 1+ [id number] ----NIT neg [id number] ----Clarity clear [id number] ----Color yellow [id number] ----Odor no [id number] ----GLU neg [id number] Summary Purpose eClinicalWorks Submission
--- OUTSIDE RECORDS SUMMARY | 2017-02-14 11:26 | XMS REPORT ---
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 pylori) infection A04.8 Active 2296389 Problem Peptic ulcer disease K27.9 Active 94718689 Problem Diverticulosis of large intestine without hemorrhage K57.30 Active 360091779 Problem CHF (congestive heart failure) I50.9 Active 56831433 Problem Hematoma of left thigh, initial encounter S70.12XA Active 965513115 Problem Depression F32.9 Active 72339277 Problem History of PCOS Z87.42 Active 931140755 Problem Neuropathy G62.9 Active 287450425 Problem History of aortic valve replacement Z95.2 Active 5791641612584 Problem GERD (gastroesophageal reflux disease) K21.9 Active 585765020 Problem History of renal transplant Z94.0 Active 103934071 ALLERGIES Substance Reaction Event Type Date Status Morphine Sulfate Unknown Drug Allergy May, Active Codeine Sulfate Unknown Drug Allergy May, Active SOCIAL HISTORY No smoking Hx information available PLAN OF CARE Activity Details Follow Up 6 Weeks Reason: VITAL SIGNS Height 61.5 in 2016-05-24 Weight 131.7 lbs 2016-05-24 Heart Rate 80 bpm 2016-05-24 Respiratory Rate 18 2016-05-24 BMI 24.48 kg/m2 2016-05-24 Blood pressure systolic 117 mmHg 2016-05-24 Blood pressure diastolic 53 mmHg 2016-05-24 MEDICATIONS Medication Instructions Dosage Frequency Start Date End Date Duration Status Azopt 1 % Ophthalmic 2 times a day 1 drop OD twice a day 12h Active Calmoseptine 0.44-20.6 % Externally Once a day apply 1 inch to affected area 24h 02 Jul, 2015 Active Mycophenolic Acid 360 MG Orally Twice a day 1 tablets on an empty stomach 12h Active Amoxicillin 500 MG Orally every 8 hrs 1 tablet 8h Active MiraLax 17 gm/dose Orally Once a day as needed 17 grams mixed in 8 oz of water or juice Active Amiodarone HCl 100 MG Orally Once a day 1 tablet 24h Active Lomotil 2.5-0.025 MG Orally Four times a day TAKE ONE TABLET BY MOUTH NEEDED FOUR TIMES DAILY 6h 15 Active [place] 3 1000 MG Orally Once a day 1 capsule 24h Active Bactroban 2 % Externally BID 1 application to affected area 12h May, May, 14 days Active Scopolamine 1 MG/3DAYS Transdermal change every third day 1 patch to skin as needed Jul, Active Gabapentin 300 MG TAKE TWO CAPSULES BY MOUTH THREE TIMES DAILY 30 Active Imodium A-D 2 MG Orally 8 time(s) a day as needed 1 tablet Active Aspirin 81 MG Orally 2 times a day 1 tablet 12h Active Famotidine 20 MG TAKE ONE TABLET BY MOUTH ONCE DAILY AT BEDTIME 90 Active Trimethoprim 100 MG Orally Once a day 1 tablet 24h Active [place] 1000 MG Active Esomeprazole Magnesium 40 mg Orally Once a day 1 capsule 24h Feb, Active Alprazolam 0.5 MG Orally Once a day at bedtime 1 tablet Active Furosemide 40 mg Orally 2 times a day (morning and afternoon) 1 tablet Active Linzess 145 MCG Orally Once a day 1 capsule 24h Active Nephro-Rodrick Rx 1 MG Orally Once a day 1 tablet 24h Active Probiotic 1 Orally 2 times a day 12h Active Flonase 50 MCG/ACT Nasally Once a day as needed 1 spray in each nostril Active Vitamin C 1000 MG Orally Once a day 1 tablet 24h Active Tacrolimus 1 MG Orally Twice a day 12h Active Bentyl 10 mg Orally 3 times a day 1 capsule 8h Apr, May, 30 days Active Zoloft 50 MG Orally Once a day 1 tablet 24h Active Zofran 4 MG Orally 3 times a day 1 tablets 8h Feb, 30 day(s) Active RESULTS No Results PROCEDURES Procedure Date Ordered Related Diagnosis Body Site [facility] VISIT ESTABLISHED PATIENT May 24, 2016 Office Visit, Est Pt., Level 2 May 24, 2016 IMMUNIZATIONS No Known Immunizations
--- OUTSIDE RECORDS SUMMARY | 2017-02-14 11:27 | XMS REPORT ---
Author Author ROGER HERNANDEZ [facility] eClinicalWorks Address Unknown Phone Unavailable Care Team Providers Care Pe Teacher Name Role Phone ROGER HERNANDEZ CP Unavailable Allergies No Known Allergies Problems Problem Type Condition Code Onset Dates Condition Status Problem Routine adult health maintenance V70.0 Active Problem History of kidney transplant V42.0 Active Problem Depressive disorder, not elsewhere classified F32.9 Active Problem H/O aortic valve replacement V43.3 Active Problem Polycystic kidney disease 753.12 Active Medications No Known Medications Results No Known Results Summary Purpose eClinicalWorks Submission
--- OUTSIDE RECORDS SUMMARY | 2017-02-14 11:27 | XMS REPORT ---
Author Author ANGELINE GUZMAN Organization [facility] Address [address] [place] [address] Care Team Providers Care Sas Administrator Name Role Phone ANGELINE GUZMAN Unavailable PROBLEMS Type Condition ICD9-CM Code [id number] Code Onset Dates Condition Status SNOMED Code Problem History of aortic valve replacement Z95.2 Active 4724904738850 Problem Routine health maintenance Z00.00 Active 761966948 Problem History of renal transplant Z94.0 Active 888035067 Problem Major depression, chronic F32.9 Active 7781446 Problem Hearing loss, bilateral H91.93 Active 63243250 Problem Accessory skin tags Q82.8 Active 34156935 Problem HTN (hypertension) I10 Active 69205732 Problem 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 066370998 Problem Anxiety F41.9 Active 66283483 Assessment Acute cystitis with hematuria N30.01 Feb, Active 29679275 Problem Neuropathy G62.9 Active 292837783 Problem GERD (gastroesophageal reflux disease) K21.9 Active 514650935 Assessment Dysuria R30.0 Feb, Active 57427590 Problem Depression F32.9 Active 15020209 Problem CHF (congestive heart failure) I50.9 Active 47425828 Problem History of PCOS Z87.42 Active 667244672 ALLERGIES Substance Reaction Event Type Date Status Morphine Sulfate Unknown Drug Allergy Feb, Active Codeine Sulfate Unknown Drug Allergy Feb, Active SOCIAL HISTORY No smoking Hx information available PLAN OF CARE VITAL SIGNS Height 61.5 in 2016-02-25 Weight 133.6 lbs 2016-02-25 Heart Rate 84 bpm 2016-02-25 Respiratory Rate 18 2016-02-25 BMI 24.83 kg/m2 2016-02-25 Blood pressure systolic 98 mmHg 2016-02-25 Blood pressure diastolic 50 mmHg 2016-02-25 MEDICATIONS Medication Instructions Dosage Frequency Start Date End Date Duration Status Azopt 1 % Ophthalmic 2 times a day 1 drop OD twice a day 12h Active Tacrolimus 1 MG Orally Twice a day 12h Active Famotidine 20 MG Orally Once a day 1 tablet at bedtime 24h Active Aspirin 81 MG Orally 2 times a day 1 tablet 12h Active MiraLax 17 gm/dose Orally Once a day as needed 17 grams mixed in 8 oz of water or juice Active Nephro-Rodrick Rx 1 MG Orally Once a day 1 tablet 24h Active Alprazolam 0.5 MG Orally Once a day at bedtime 1 tablet Active Imodium A-D 2 MG Orally 8 time(s) a day as needed 1 tablet Active Probiotic 1 Orally Once a day 24h Active [place] 3 1000 MG Orally Once a day 1 capsule 24h Active Furosemide 40 mg Orally 2 times a day (morning and afternoon) 1 tablet Active Gabapentin 300 MG TAKE TWO CAPSULES BY MOUTH THREE TIMES DAILY 30 Active Flonase 50 MCG/ACT Nasally Once a day as needed 1 spray in each nostril Active Calmoseptine 0.44-20.6 % Externally Once a day apply 1 inch to affected area 24h Jul, Active Mycophenolic Acid 360 MG Orally Twice a day 1 tablets on an empty stomach 12h Active Potassium Chloride 20 MEQ Orally Once a day 1 tab 24h Active Bactrim DS 800-160 MG Orally Twice a day 1 tablet 12h Feb,Feb 07 days Active RESULTS Name Result Date Reference Range CULTURE, URINE 2016-02-25 Urine Culture, Routine Final report Result 1 Klebsiella pneumoniae Antimicrobial Susceptibility UA LONG DIP (IN HOUSE) 2016-02-25 Lot # [id number] Exp date Clarity cloudy Color dark yellow Odor none GLU Negative JOSE Negative KET Negative SG 1.015 BLO Trace-intact pH 5.0 Protein Negative URO 0.2 E.U./dL NIT Positive IMANI 1+ Lot # [id number] Exp date PROCEDURES Procedure Date Ordered Related Diagnosis Body Site URINALYSIS, AUTO, W/O SCOPE Feb 25, 2016 [facility] Feb [facility], 2016 Office Visit, Est Pt., Level 3 Feb 25, 2016 [facility] EST[facility] PATIENT Feb 25, 2016 IMMUNIZATIONS No Known Immunizations
--- OUTSIDE RECORDS SUMMARY | 2017-02-14 11:27 | XMS REPORT ---
Author Author ANGELINE GUZMAN Organization [employer] Address Unknown Phone Unavailable Care Team Providers Care Tomographic Tech Name Role Phone ANGELINE GUZMAN CP Unavailable [...] Start Date End Date Status Dosage Lomotil [facility] [id number] 2.5-0.025 MG TAKE ONE TABLET BY MOUTH NEEDED FOUR TIMES DAILY Results No Known Results Summary Purpose eClinicalWorks Submission
--- OUTSIDE RECORDS SUMMARY | 2017-02-14 11:27 | XMS REPORT ---
Author Author GEOVANNI UGALDE Organization [employer] Address Unknown Phone Unavailable Care Team Providers Care Smoke Room Operator Name Role Phone GEOVANNI UGALDE CP Unavailable Allergies No Known Allergies Problems Problem Type Condition Code Onset Dates Condition Status Problem Routine adult health maintenance V70.0 Active Problem History of kidney transplant V42.0 Active Problem Depressive disorder, not elsewhere classified F32.9 Active Assessment Depressive disorder, not elsewhere classified F32.9 Active Problem H/O aortic valve replacement V43.3 Active Problem Polycystic kidney disease 753.12 Active Medications No Known Medications Procedures Procedure Coding System Code Date Psychotherapy, patient &/family, 45 minutes, established patient CPT-4 77635 Apr 20, 2015 [facility] VISIT MENTAL HEALTH ESTAB PT CPT-4 G0470 Apr 20, 2015 Results No Known Results Summary Purpose eClinicalWorks Submission
--- OUTSIDE RECORDS SUMMARY | 2017-02-14 11:27 | XMS REPORT ---
Author Author ROGER HERNANDEZ [facility] eClinicalWorks Address Unknown Phone Unavailable Care Team Providers Care Continuous Improvement Coach Name Role Phone ROGER HERNANDEZ CP Unavailable [...]
--- OUTSIDE RECORDS SUMMARY | 2017-02-14 11:27 | XMS REPORT ---
Author Author JED BAR Organization [facility] Address [address] [place] [address] Care Team Providers Care Windows Administrator Name Role Phone KIP BARNETTE Unavailable PROBLEMS Type Condition ICD9-CM Code [id number] Code Onset Dates Condition Status SNOMED Code Problem History of renal transplant Z94.0 Active 254933988 Problem HTN (hypertension) I10 Active 49542686 Problem Routine health maintenance Z00.00 Active 862327096 Problem Peptic ulcer disease K27.9 Active 22081914 Problem Major depression, chronic F32.9 Active 5334322 Problem Anxiety F41.9 Active 29479592 Problem Accessory skin tags Q82.8 Active 88898910 Problem Hearing loss, bilateral H91.93 Active 13285888 Problem 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 494251805 Assessment Diarrhea of infectious origin A09 19 Feb, 2016 Active 81332904 Assessment Bilious vomiting with nausea R11.14 19 Feb, 2016 Active 57897655 Assessment Chronic UTI N39.0 Feb, Active 632794363 Problem GERD (gastroesophageal reflux disease) K21.9 Active 903883991 Problem Depression F32.9 Active 45967156 Problem CHF (congestive heart failure) I50.9 Active 17210404 Problem History of PCOS Z87.42 Active 511048000 Problem Neuropathy G62.9 Active 362616651 Problem History of aortic valve replacement Z95.2 Active 1403518292606 ALLERGIES Substance Reaction Event Type Date Status Morphine Sulfate Unknown Drug Allergy Feb, Active Codeine Sulfate Unknown Drug Allergy Feb, Active SOCIAL HISTORY No smoking Hx information available PLAN OF CARE VITAL SIGNS Height 61.5 in 2016-03-06 Weight 131.2 lbs 2016-03-06 Heart Rate 68 bpm 2016-03-06 Respiratory Rate 20 2016-03-06 BMI 24.39 kg/m2 2016-03-06 Blood pressure systolic 110 mmHg 2016-03-06 Blood pressure diastolic 70 mmHg 2016-03-06 MEDICATIONS Medication Instructions Dosage Frequency Start Date End Date Duration Status Furosemide 40 mg Orally 2 times a day (morning and afternoon) 1 tablet Active Amoxicillin 875 MG Orally every 12 hrs 1 tablet 12h Feb, Feb, 10 day(s) Active Flonase 50 MCG/ACT Nasally Once a day as needed 1 spray in each nostril Active Famotidine 20 MG Orally Once a day 1 tablet at bedtime 24h Active Potassium Chloride 20 MEQ Orally Once a day 1 tab 24h Active Mycophenolic Acid 360 MG Orally Twice a day 1 tablets on an empty stomach 12h Active Zofran 4 MG Orally 3 times a day 1 tablets 8h Feb, 30 day(s) Active Tacrolimus 1 MG Orally Twice a day 12h Active Esomeprazole Magnesium 40 mg Orally Once a day 1 capsule 24h Feb, 30 day(s) Active MiraLax 17 gm/dose Orally Once a day as needed 17 grams mixed in 8 oz of water or juice Active Nephro-Rodrick Rx 1 MG Orally Once a day 1 tablet 24h Active [place] 3 1000 MG Orally Once a day 1 capsule 24h Active Calmoseptine 0.44-20.6 % Externally Once a day apply 1 inch to affected area 24h Jul, Active Gabapentin 300 MG TAKE TWO CAPSULES BY MOUTH THREE TIMES DAILY 30 Active Imodium A-D 2 MG Orally 8 time(s) a day as needed 1 tablet Active Aspirin 81 MG Orally 2 times a day 1 tablet 12h Active Alprazolam 0.5 MG Orally Once a day at bedtime 1 tablet Active Azopt 1 % Ophthalmic 2 times a day 1 drop OD twice a day 12h Active Clarithromycin 500 MG Orally every 12 hrs 1 tablet 12h Feb,Feb 10 day(s) Active RESULTS Name Result Date Reference Range H PYLORI (IN HOUSE) 2016-03-06 H. PYLORI positive Control + Lot # [id number] Exp date UA LONG DIP (IN HOUSE) 2016-03-06 Lot # [id number] Exp date 2016-07 Clarity clear Color yellow Odor none GLU negative JOSE negative KET negative SG 1.020 BLO negative pH 7.0 Protein negative URO 0.2 NIT negative IMANI negative Lot # [id number] Exp date 2017-04 PROCEDURES Procedure Date Ordered Related Diagnosis Body Site URINALYSIS, AUTO, W/O SCOPE Mar 06, 2016 IMMUNOASSAY,INFECTIOUS AGENT Mar 06, 2016 Office Visit, Est Pt., Level 4 Mar 06, 2016 [facility] VISIT ESTABLISHED PATIENT Mar 06, 2016 IMMUNIZATIONS No Known Immunizations
--- OUTSIDE RECORDS SUMMARY | 2017-02-14 11:27 | XMS REPORT ---
Author Author ANGELINE GUZMAN Organization eClinicalWorks Address Unknown Phone Unavailable Care Team Providers Care Refuse And Recycling Worker Name Role Phone ANGELINE GUZMAN CP Unavailable [...] Q82.8 Active Problem HTN (hypertension) I10 Active Assessment Depression F32.9 Active Problem CHF (congestive heart failure) I50.9 Active Assessment Hearing loss, bilateral H91.93 Active Problem Neuropathy G62.9 Active Assessment Anxiety F41.9 Active Problem GERD (gastroesophageal reflux disease) K21.9 Active Medications Medication Code System Code Instructions Start Date End Date Status Dosage Probiotic [facility] [address] 1 Orally Once a day not defined Furosemide [facility] [address]-00 40 mg Orally 2 times a day (morning and afternoon) 1 tablet [place] 3 [facility] [address]97 1000 MG Orally Once a day 1 capsule Famotidine [facility] [address]-44 20 MG Orally Once a day 1 tablet at bedtime Tacrolimus [facility] [address]-60 1 MG Orally Twice a day not defined Nephro-Rodrick Rx [facility] [address]-18 1 MG Orally Once a day 1 tablet Paroxetine HCl [facility] [address]-08 20 mg Orally Once a day 1 tablet in the morning MiraLax [facility] [address]-33 17 gm/dose Orally Once a day as needed 17 grams mixed in 8 oz of water or juice Imodium A-D [facility] [address]-61 2 MG Orally 8 time(s) a day as needed 1 tablet Aspirin [facility] [address]-90 81 MG Orally 2 times a day 1 tablet Azopt [facility] [address]-27 1 % Ophthalmic 2 times a day 1 drop OD twice a day Gabapentin [facility] 34916824407 300 MG TAKE TWO CAPSULES BY MOUTH THREE TIMES DAILY Alprazolam [facility] [address]-47 0.5 MG Orally Once a day at bedtime 1 tablet Flonase [facility] [address]-59 50 MCG/ACT Nasally Once a day as needed 1 spray in each nostril Mycophenolic Acid [facility] [address]-29 360 MG Orally Twice a day 1 tablets on an empty stomach Potassium Chloride [facility] [address]-97 20 MEQ Orally Once a day 1 tab Calmoseptine [facility] [address]-66 0.44-20.6 % Externally Once a day Jul 20, 2015 apply 1 inch to affected area Procedures Procedure Coding System Code Date Office Visit, Est Pt., Level 3 CPT-4 81209 January 11, 2016 [facility] VISIT ESTABLISHED PATIENT CPT-4 G0467 January 11, 2016 Vital Signs Date/Time: January 11, 2016 Cardiac Monitoring Heart Rate 74 bpm Weight 129.4 lbs Height 61.5 in BMI 24.05 Index Blood Pressure Diastolic 60 mmHg Blood Pressure Systolic 106 mmHg Results No Known Results Summary Purpose eClinicalWorks Submission
--- OUTSIDE RECORDS SUMMARY | 2017-02-14 11:27 | XMS REPORT ---
Author Author ROGER HERNANDEZ [facility] eClinicalWorks Address Unknown Phone Unavailable Care Team Providers Care Specimen Transporter Name Role Phone ROGER HERNANDEZ CP Unavailable [...]
--- OUTSIDE RECORDS SUMMARY | 2017-02-14 11:28 | XMS REPORT ---
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 pylori) infection A04.8 Active 6223436 Problem Peptic ulcer disease K27.9 Active 50023525 Problem Diverticulosis of large intestine without hemorrhage K57.30 Active 736306988 Problem CHF (congestive heart failure) I50.9 Active 38121047 Problem Hematoma of left thigh, initial encounter S70.12XA Active 144219983 Problem Depression F32.9 Active 22622121 Problem History of PCOS Z87.42 Active 610942418 Problem Neuropathy G62.9 Active 828113810 Problem History of aortic valve replacement Z95.2 Active 6109364381424 Problem GERD (gastroesophageal reflux disease) K21.9 Active 786773032 Problem History of renal transplant Z94.0 Active 555894013 ALLERGIES Unknown Allergies SOCIAL HISTORY No smoking Hx information available PLAN OF CARE VITAL SIGNS MEDICATIONS Medication Instructions Dosage Frequency Start Date End Date Duration Status Lomotil 2.5-0.025 MG Orally Four times a day TAKE ONE TABLET BY MOUTH NEEDED FOUR TIMES DAILY 6h 15 Active RESULTS No Results PROCEDURES No Known procedures IMMUNIZATIONS No Known Immunizations
--- OUTSIDE RECORDS SUMMARY | 2017-02-14 11:28 | XMS REPORT ---
Author Author ROGER HERNANDEZ [facility] eClinicalWorks Address Unknown Phone Unavailable Care Team Providers Care Insurance Account Specialist Name Role Phone ROGER HERNANDEZ CP Unavailable Allergies No Known Allergies Problems Problem Type Condition Code Onset Dates Condition Status Problem Routine adult health maintenance V70.0 Active Problem History of kidney transplant V42.0 Active Problem Depressive disorder, not elsewhere classified F32.9 Active Assessment Encounter for immunization Z23 Active Problem H/O aortic valve replacement V43.3 Active Problem Polycystic kidney disease 753.12 Active Medications No Known Medications Procedures Procedure Coding System Code Date PPV23 (PNEUMOVAX) CPT-4 01524 Apr 28, 2015 SINGLE IMMUNIZATION ADMIN CPT-4 37943 Apr 28, 2015 FLUARIX QUAD (3 & UP)-GSK-2014 CPT-4 32451 Apr 28, 2015 IMMUNIZATION ADMIN, EACH ADD (please include units) CPT-4 03474 Apr 28, 2015 Results No Known Results Immunizations Vaccine Administration Date FLUARIX QUAD (3 & UP)-GSK-2014Apr 28, 2015 PPV23 (PNEUMOVAX) Apr 28, 2015 Summary Purpose eClinicalWorks Submission
--- OUTSIDE RECORDS SUMMARY | 2017-02-14 11:28 | XMS REPORT ---
Author Author JR GUEVARA Organization eClinicalWorks Address Unknown Phone Unavailable Care Team Providers Care Software Applications Architect Name Role Phone JR GUEVARA CP Unavailable Allergies No Known Allergies Problems [...] Medications Procedures Procedure Coding System Code Date Psych diagnostic evaluation, established patient CPT-4 69216 Mar 25, 2015 [facility] VISIT MENTAL HEALTH ESTAB PT CPT-4 G0470 Mar 25, 2015 Results No Known Results Summary Purpose eClinicalWorks Submission
--- OUTSIDE RECORDS SUMMARY | 2017-02-14 11:28 | XMS REPORT ---
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
--- OUTSIDE RECORDS SUMMARY | 2017-02-14 11:28 | XMS REPORT ---
Author ROGER Orona eClinicalWorks Address Unknown Phone Unavailable Care Team Providers Care Pharmacy Technology Instructor Name Role Phone ROGER HERNANDEZ Unavailable Allergies, Adverse Reactions, Alerts Substance Reaction Event Type Codeine Sulfate Info Not Available Drug Allergy Problems Problem Type Condition Code Onset Dates Condition Status Assessment Unspecified fall, initial encounter W19.XXXA Active Problem Depressive disorder, not elsewhere classified F32.9 Active Problem Routine adult health maintenance V70.0 Active Problem CHF (congestive heart failure) I50.9 Active Problem Polycystic kidney disease 753.12 Active Assessment CHF (congestive heart failure) I50.9 Active Problem History of kidney transplant V42.0 Active Problem H/O aortic valve replacement V43.3 Active Medications Medication Code System Code Instructions Start Date End Date Status Dosage Sertraline HCl [facility] [address]-10 25 MG Orally Once a day 1 tablet Amiodarone HCl [facility] [address]-43 200 MG Orally Once a day 1 tablet Imodium A-D [facility] [address]-94 2 MG Orally 8 time(s) a day as needed 1 tablet Gabapentin [facility] [address]-29 600 MG Orally 3 times a day 1 tablet Lasix [facility] [address]-20 40 MG Orally Once a day 1 tablet [place] 3 [facility] [address]42-51036 1000 MG Orally Once a day 1 capsule Potassium Chloride [facility] [address]-13 20 MEQ Orally Once a day 1 tab Pravastatin Sodium [facility] [address]-46 20 MG Orally Once a day 1 tablet Flonase [facility] [address]-63 50 MCG/ACT Nasally Once a day as needed 1 spray in each nostril Tacrolimus [facility] [address]-01 1 MG Orally Twice a day not defined Alprazolam [facility] [address]-34 0.5 MG Orally Once a day at bedtime 1 tablet MiraLax [facility] [address]-23 17 gm/dose Orally Once a day as needed 17 grams mixed in 8 oz of water or juice Azopt [facility] [address]-77 1 % Ophthalmic Once a day 1 drop into affected eye Aspirin [facility] [address]-11 81 MG Orally 2 times a day 1 tablet Nephro-Rodrick Rx [facility] [address]-78 1 MG Orally Once a day 1 tablet Probiotic [facility] 81263-[address]18 1 Orally Once a day not defined Famotidine [facility] [address]-26 20 MG Orally Once a day 1 tablet at bedtime Estradiol [facility] [address]-52 1 MG Orally Once a day 1 tablet Mycophenolic Acid [facility] [address]-59 360 MG Orally Twice a day 1 tablets on an empty stomach Procedures Procedure Coding System Code Date Office Visit, Est Pt., Level 3 CPT-4 25102 May 31, 2015 X-RAY EXAM OF LOWER LEG CPT-4 46222 May 31, 2015 [facility] VISIT ESTABLISHED PATIENT CPT-4 G0467 May 31, 2015 Vital Signs Date/Time: May 31, 2015 Temperature 97.6 F Weight 126.5 lbs Height 61.5 in BMI 23.51 Index Blood Pressure Diastolic 60 mmHg Blood Pressure Systolic 118 mmHg Cardiac Monitoring Heart Rate 60 bpm Results No Known Results Summary Purpose eClinicalWorks Submission
--- OUTSIDE RECORDS SUMMARY | 2017-02-14 11:28 | XMS REPORT ---
Author ROGER Orona [facility] eClinicalWorks Address Unknown Phone Unavailable Care Team Providers Care Manager Category Name Role Phone ROGER HERNANDEZ Unavailable Allergies No Known Allergies Problems Problem Type Condition Code Onset Dates Condition Status Problem Routine adult health maintenance V70.0 Active Problem History of kidney transplant V42.0 Active Problem Depressive disorder, not elsewhere classified F32.9 Active Assessment CHF (congestive heart failure) I50.9 Active Problem H/O aortic valve replacement V43.3 Active Problem Polycystic kidney disease 753.12 Active Medications Medication Code System Code Instructions Start Date End Date Status Dosage Nephro-Rodrick Rx [facility] [address]-77 1 MG Orally Once a day 1 tablet Probiotic [facility] 99[address]284 1 Orally Once a day not defined Amiodarone HCl [facility] [address]-62 200 MG Orally 2 times a day 1 tablet Lasix [facility] [address]-94 40 MG Orally Once a day 1 tablet Gabapentin [facility] [address]-23 600 MG Orally 3 times a day 1 tablet Estradiol [facility] [address]-20 1 MG Orally Once a day 1 tablet [place] 3 [facility] 565[address] 1000 MG Orally Once a day 1 capsule Imodium A-D [facility] [address]-01 2 MG Orally 8 time(s) a day as needed 1 tablet Alprazolam [facility] [address]-26 0.5 MG Orally Once a day at bedtime 1 tablet Metoprolol Tartrate [facility] [address]-26 25 MG Orally Twice a day 1 tablet MiraLax [facility] [address]-79 17 gm/dose Orally Once a day as needed 17 grams mixed in 8 oz of water or juice Aspirin [facility] [address]-23 81 MG Orally 2 times a day 1 tablet Azopt [facility] [address]-08 1 % Ophthalmic Once a day 1 drop into affected eye Tacrolimus [facility] [address]-37 1 MG Orally Twice a day not defined Sertraline HCl [facility] [address]-91 25 MG Orally Once a day 1 tablet Flonase [facility] [address]-16 50 MCG/ACT Nasally Once a day as needed 1 spray in each nostril Mycophenolic Acid [facility] [address]-94 360 MG Orally Twice a day 1 tablets on an empty stomach Potassium Chloride [facility] [address]-46 20 MEQ Orally Once a day 1 tab Famotidine [facility] [address]-95 20 MG Orally Once a day 1 tablet at bedtime Results No Known Results Summary Purpose eClinicalWorks Submission
--- OUTSIDE RECORDS SUMMARY | 2017-02-14 11:28 | XMS REPORT ---
Author Author ROGER HERNANDEZ [facility] eClinicalWorks Address Unknown Phone Unavailable Care Team Providers Care Roll Picker Name Role Phone ROGER HERNANDEZ CP Unavailable [...] replacement V43.3 Active Medications No Known Medications Results No Known Results Summary Purpose eClinicalWorks Submission
--- OUTSIDE RECORDS SUMMARY | 2017-02-14 11:28 | XMS REPORT ---
Author Author ANGELINE GUZMAN Organization 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 pylori) infection A04.8 Active 1420209 Problem Peptic ulcer disease K27.9 Active 50409934 Problem Diverticulosis of large intestine without hemorrhage K57.30 Active 462728913 Problem CHF (congestive heart failure) I50.9 Active 58955502 Problem Hematoma of left thigh, initial encounter S70.12XA Active 386479558 Problem Depression F32.9 Active 46119415 Problem History of PCOS Z87.42 Active 915916250 Problem Neuropathy G62.9 Active 003876616 Problem History of aortic valve replacement Z95.2 Active [id number] Problem GERD (gastroesophageal reflux disease) K21.9 Active 188273772 Problem History of renal transplant Z94.0 Active 279457122 ALLERGIES Unknown Allergies SOCIAL HISTORY No smoking Hx information available PLAN OF CARE VITAL SIGNS MEDICATIONS Medication Instructions Dosage Frequency Start Date End Date Duration Status Alprazolam 0.5 MG Orally Once a day at bedtime 1 tablet Active RESULTS No Results PROCEDURES No Known procedures IMMUNIZATIONS No Known Immunizations
--- OUTSIDE RECORDS SUMMARY | 2017-02-14 11:28 | XMS REPORT ---
Author Author ANGELINE GUZMAN Organization eClinicalWorks Address Unknown Phone Unavailable Care Team Providers Care Improvement Nurse Name Role Phone AGNELINE GUZMAN CP Unavailable Allergies No Known Allergies [...] Status Dosage Lomotil [facility] 62615681051 2.5-0.025 MG Orally Four times a day May 28, 2016 TAKE ONE TABLET BY MOUTH NEEDED FOUR TIMES DAILY Results No Known Results Summary Purpose eClinicalWorks Submission
--- OUTSIDE RECORDS SUMMARY | 2017-02-14 11:28 | XMS REPORT ---
Author Author ANATOLY ROBLEDO eClinicalWorks Address Unknown Phone Unavailable Care Team Providers Care Machine Former Name Role Phone ANATOLY ROBLEDO Unavailable Allergies, Adverse Reactions, Alerts Substance Reaction [...] Problem Hearing loss, bilateral H91.93 Active Assessment Major depression, chronic F32.9 Active Problem CHF (congestive heart failure) I50.9 Active Problem Depression F32.9 Active Problem History of PCOS Z87.42 Active Problem Neuropathy G62.9 Active Problem History of aortic valve replacement Z95.2 Active Problem GERD (gastroesophageal reflux disease) K21.9 Active Problem History of renal transplant Z94.0 Active Medications Medication Code System Code Instructions Start Date End Date Status Dosage Aspirin [facility] [address]-32 81 MG Orally 2 times a day 1 tablet Calmoseptine [facility] [address]-20 0.44-20.6 % Externally Once a day Jul 20, 2015 apply 1 inch to affected area MiraLax [facility] [address]-19 17 gm/dose Orally Once a day as needed 17 grams mixed in 8 oz of water or juice Imodium A-D [facility] [address]-82 2 MG Orally 8 time(s) a day as needed 1 tablet Gabapentin [facility] 00526909730 300 MG TAKE TWO CAPSULES BY MOUTH THREE TIMES DAILY Nephro-Rodrick Rx [facility] [address]-78 1 MG Orally Once a day 1 tablet Azopt [facility] [address]-92 1 % Ophthalmic 2 times a day 1 drop OD twice a day Esomeprazole Magnesium [facility] [address]-80 40 mg Orally Once a day Mar 06, 2016 1 capsule Famotidine [facility] [address]-93 20 MG Orally Once a day 1 tablet at bedtime Probiotic [facility] [address]-03304 1 Orally Once a day not defined Lomotil [facility] [address]-85 2.5-0.025 MG Orally Four times a day Mar 11, 2016 1 tablet as needed Zoloft [facility] [address]-41 25 MG Orally Once a day Mar 22, 2016 1 tablet Mycophenolic Acid [facility] [address]-67 360 MG Orally Twice a day 1 tablets on an empty stomach Potassium Chloride [facility] [address]-27 20 MEQ Orally Once a day 1 tab Furosemide [facility] [address]-57 40 mg Orally 2 times a day (morning and afternoon) 1 tablet [place] [address] [facility] [address]12 1000 MG Orally Once a day 1 capsule Alprazolam [facility] [address]-32 0.5 MG Orally Once a day at bedtime 1 tablet Flonase [facility] [address]-98 50 MCG/ACT Nasally Once a day as needed 1 spray in each nostril Tacrolimus [facility] [address]-52 1 MG Orally Twice a day not defined Procedures Procedure Coding System Code Date Office Visit, Est Pt., Level 2 CPT-4 20519 Mar 22, 2016 [facility] VISIT ESTABLISHED PATIENT CPT-4 G0467 Mar 22, 2016 Vital Signs Date/Time: Mar 22, 2016 Cardiac Monitoring Heart Rate 84 bpm Weight 131.8 lbs Height 61.5 in BMI 24.50 Index Blood Pressure Diastolic 51 mmHg Blood Pressure Systolic 97 mmHg Results No Known Results Summary Purpose eClinicalWorks Submission
--- OUTSIDE RECORDS SUMMARY | 2017-02-14 11:28 | XMS REPORT ---
Author Author ANGELINE GUZMAN Organization eClinicalWorks Address Unknown Phone Unavailable Care Team Providers Care Equity Structurer Name Role Phone ANGELINE GUZMAN CP Unavailable Allergies No Known Allergies Problems Problem Type Condition Code Onset Dates Condition Status Problem CHF (congestive heart failure) I50.9 Active Problem GERD (gastroesophageal reflux disease) K21.9 Active Problem Neuropathy G62.9 Active Problem HTN (hypertension) I10 Active Problem Routine health maintenance Z00.00 Active Problem Accessory skin tags Q82.8 Active Problem History of PCOS Z87.42 Active Problem Depression F32.9 Active Problem History of renal transplant Z94.0 Active Problem History of aortic valve replacement Z95.2 Active Medications No Known Medications Results No Known Results Summary Purpose eClinicalWorks Submission
--- OUTSIDE RECORDS SUMMARY | 2017-02-14 11:29 | XMS REPORT ---
Author ROGER Orona eClinicalWorks Address Unknown Phone Unavailable Care Team Providers Care Product Strategy Director Name Role Phone ROGER HERNANDEZ Unavailable Allergies, Adverse Reactions, Alerts Substance Reaction Event Type Codeine Sulfate Info Not Available Drug Allergy Problems Problem Type Condition Code Onset Dates Condition Status Problem Routine adult health maintenance V70.0 Active Problem History of kidney transplant V42.0 Active Problem Depressive disorder, not elsewhere classified F32.9 Active Assessment Bradycardia, unspecified R00.1 Active Problem H/O aortic valve replacement V43.3 Active Problem Polycystic kidney disease 753.12 Active Medications Medication Code System Code Instructions Start Date End Date Status Dosage Potassium Chloride [facility] [address]-53 20 MEQ Orally Once a day 1 tab Azopt [facility] [address]-45 1 % Ophthalmic Once a day 1 drop into affected eye Imodium A-D [facility] [address]-64 2 MG Orally 8 time(s) a day as needed 1 tablet Famotidine [facility] [address]-95 20 MG Orally Once a day 1 tablet at bedtime Sertraline HCl [facility] [address]-19 25 MG Orally Once a day 1 tablet Nephro-Rodrick Rx [facility] [address]-67 1 MG Orally Once a day 1 tablet Estradiol [facility] [address]-32 1 MG Orally Once a day 1 tablet Flonase [facility] [address]-43 50 MCG/ACT Nasally Once a day as needed 1 spray in each nostril Lasix [facility] [address]-84 40 MG Orally Once a day 1 tablet Tacrolimus [facility] [address]-69 1 MG Orally Twice a day not defined Mycophenolic Acid [facility] [address]-32 360 MG Orally Twice a day 1 tablets on an empty stomach MiraLax [facility] [address]-54 17 gm/dose Orally Once a day as needed 17 grams mixed in 8 oz of water or juice Amiodarone HCl [facility] [address]-25 200 MG Orally 2 times a day 1 tablet Aspirin [facility] [address]-71 81 MG Orally 2 times a day 1 tablet [place] 3 [facility] 62[address]-38468 1000 MG Orally Once a day 1 capsule Alprazolam [facility] [address]-26 0.5 MG Orally Once a day at bedtime 1 tablet Metoprolol Tartrate [facility] [address]-11 25 MG Orally Twice a day 1 tablet Gabapentin [facility] [address]-14 600 MG Orally 3 times a day 1 tablet Probiotic [facility] 85508-28132 1 Orally Once a day not defined Procedures Procedure Coding System Code Date [facility] VISIT ESTABLISHED PATIENT CPT-4 G0467 May 04, 2015 Office Visit, Est Pt., Level 3 CPT-4 15909 May 04, 2015 ELECTROCARDIOGRAM, TRACING CPT-4 55287 May 04, 2015 Vital Signs Date/Time: May 04, 2015 Temperature 98.5 F Weight 132.2 lbs Height 61.5 in BMI 24.57 Index Blood Pressure Diastolic 62 mmHg Blood Pressure Systolic 110 mmHg Cardiac Monitoring Heart Rate 48 bpm Results Name Result Date Reference Range Unit Abnormality Flag EKG, TRACING (IN-HOUSE) Summary Purpose eClinicalWorks Submission
--- OUTSIDE RECORDS SUMMARY | 2017-02-14 11:29 | XMS REPORT ---
Author Author ROGER HERNANDEZ eClinicalWorks Address Unknown Phone Unavailable Care Team Providers Care Manager Environmental Services Name Role Phone ROGER HERNANDEZ Unavailable Allergies, Adverse Reactions, Alerts Substance Reaction Event Type Codeine Sulfate Info Not Available Drug Allergy Problems Problem Type Condition Code Onset Dates Condition Status Problem Routine adult health maintenance V70.0 Active Problem History of kidney transplant V42.0 Active Problem Depressive disorder, not elsewhere classified F32.9 Active Assessment H/O aortic valve replacement V43.3 Active Assessment Polycystic kidney disease 753.12 Active Problem H/O aortic valve replacement V43.3 Active Problem Polycystic kidney disease 753.12 Active Medications Medication Code System Code Instructions Start Date End Date Status Dosage Amiodarone HCl [facility] [address]-18 200 MG Orally 2 times a day 1 tablet Aspirin [facility] [address]-29 81 MG Orally 2 times a day 1 tablet Famotidine [facility] [address]-94 20 MG Orally Once a day 1 tablet at bedtime Imodium A-D [facility] [address]-05 2 MG Orally 8 time(s) a day as needed 1 tablet Tacrolimus [facility] [address]-60 1 MG Orally Twice a day not defined Nephro-Rodrick Rx [facility] [address]-09 1 MG Orally Once a day 1 tablet Azopt [facility] [address]-99 1 % Ophthalmic Once a day 1 drop into affected eye Sertraline HCl [facility] [address]-99 25 MG Orally Once a day 1 tablet Gabapentin [facility] [address]-96 600 MG Orally 3 times a day 1 tablet Lasix [facility] [address]-74 20 MG Orally Once a day 1 tablet Alprazolam [facility] [address]-21 0.5 MG Orally Once a day at bedtime 1 tablet Mycophenolic Acid [facility] [address]-63 360 MG Orally Twice a day 1 tablets on an empty stomach MiraLax [facility] [address]-88 17 gm/dose Orally Once a day as needed 17 grams mixed in 8 oz of water or juice Estradiol [facility] [address]-97 1 MG Orally Once a day 1 tablet Potassium Chloride [facility] [address]-02 20 MEQ Orally Once a day 1 tab [place] 3 [facility] [address]79-78828 1000 MG Orally Once a day 1 capsule Flonase [facility] [address]-06 50 MCG/ACT Nasally Once a day as needed 1 spray in each nostril Metoprolol Tartrate [facility] [address]-90 25 MG Orally Twice a day 1 tablet Probiotic [facility] 37755-93782 1 Orally Once a day not defined Procedures Procedure Coding System Code Date Office Visit, Est Pt., Level 3 CPT-4 95745 Apr 20, 2015 [facility] VISIT ESTABLISHED PATIENT CPT-4 G0467 Apr 20, 2015 Vital Signs Date/Time: Apr 20, 2015 Temperature 97.6 F Weight 127.9 lbs Height 61.5 in BMI 23.77 Index Blood Pressure Diastolic 64 mmHg Blood Pressure Systolic 106 mmHg Cardiac Monitoring Heart Rate 72 bpm Results No Known Results Summary Purpose eClinicalWorks Submission
--- OUTSIDE RECORDS SUMMARY | 2017-02-14 11:29 | XMS REPORT ---
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 pylori) infection A04.8 Active 2001671 Problem Peptic ulcer disease K27.9 Active 75225620 Problem Neuropathy G62.9 Active 082073990 Problem GERD (gastroesophageal reflux disease) K21.9 Active 949244344 Problem CHF (congestive heart failure) I50.9 Active 56879197 Problem History of aortic valve replacement Z95.2 Active 6192041465276 Problem History of renal transplant Z94.0 Active 966165279 Problem Depression F32.9 Active 16620636 Problem Routine health maintenance Z00.00 Active 432982786 Problem History of PCOS Z87.42 Active 762171018 Problem HTN (hypertension) I10 Active 77121761 ALLERGIES Unknown Allergies SOCIAL HISTORY No smoking Hx information available PLAN OF CARE VITAL SIGNS MEDICATIONS Unknown Medications RESULTS No Results PROCEDURES No Known procedures IMMUNIZATIONS No Known Immunizations
--- OUTSIDE RECORDS SUMMARY | 2017-02-14 11:29 | XMS REPORT ---
Author Author ANGELINE GUZMAN Organization [employer] Address Unknown Phone Unavailable Care Team Providers Care Mason Tender Restoration Labor Name Role Phone ANGELINE GUZMAN CP Unavailable [...]
--- OUTSIDE RECORDS SUMMARY | 2017-02-14 11:29 | XMS REPORT ---
Author RAJENDRA Campos [facility] e[employer] Address Unknown Phone Unavailable Care Team Providers Care Provisioning Specialist Name Role Phone RAJENDRA BOUDREAUX CP Unavailable Allergies, Adverse Reactions, Alerts Substance Reaction Event Type Morphine Sulfate Info Not Available Drug Allergy Codeine Sulfate Info Not Available Drug Allergy Problems Problem Type Condition Code Onset Dates Condition Status Problem HTN (hypertension) I10 Active Problem Anxiety F41.9 Active Problem Accessory skin tags Q82.8 Active Problem Pain with urination R30.9 Active Assessment Abrasion, left knee, initial encounter S80.212A Active Problem Helicobacter pylori (H. 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 Problem Peptic ulcer disease K27.9 Active Problem Major depression, chronic F32.9 Active Problem CHF (congestive heart failure) I50.9 Active Problem Neuropathy G62.9 Active Assessment Encounter for immunization Z23 Active Assessment Abrasion of anterior lower leg, right, initial encounter S80.811A Active Problem History of PCOS Z87.42 Active Problem History of aortic valve replacement Z95.2 Active Problem GERD (gastroesophageal reflux disease) K21.9 Active Problem History of renal transplant Z94.0 Active Problem Depression F32.9 Active Problem Routine health maintenance Z00.00 Active Medications Medication Code System Code Instructions Start Date End Date Status Dosage Aspirin [facility] [address]-85 81 MG Orally 2 times a day 1 tablet MiraLax [facility] [address]-97 17 gm/dose Orally Once a day as needed 17 grams mixed in 8 oz of water or juice Mycophenolic Acid [facility] [address]-16 360 MG Orally Twice a day 1 tablets on an empty stomach Gabapentin [facility] 12832209157 300 MG TAKE TWO CAPSULES BY MOUTH THREE TIMES DAILY Esomeprazole Magnesium [facility] [address]-39 40 mg Orally Once a day Mar 06, 2016 1 capsule Azopt [facility] [address]-12 1 % Ophthalmic 2 times a day 1 drop OD twice a day Flonase [facility] [address]-53 50 MCG/ACT Nasally Once a day as needed 1 spray in each nostril Bentyl [facility] [address]-69 10 mg Orally 3 times a day Apr 27, 2016 May 27, 2016 1 capsule Zoloft [facility] [address]-85 25 MG Orally Once a day Mar 22, 2016 1 tablet Furosemide [facility] [address]-48 40 mg Orally 2 times a day (morning and afternoon) 1 tablet Alprazolam [facility] [address]-13 0.5 MG Orally Once a day at bedtime 1 tablet Zofran [facility] [address]-85 4 MG Orally 3 times a day Mar 06, 2016 1 tablets Imodium A-D [facility] [address]-64 2 MG Orally 8 time(s) a day as needed 1 tablet Nephro-Rodrick Rx [facility] [address]-65 1 MG Orally Once a day 1 tablet Famotidine [facility] [address]-03 20 MG TAKE ONE TABLET BY MOUTH ONCE DAILY AT BEDTIME Calmoseptine [facility] [address]-02 0.44-20.6 % Externally Once a day Jul 20, 2015 apply 1 inch to affected area Probiotic [facility] 78401-09648 1 Orally 2 times a day not defined Tacrolimus [facility] [address]-15 1 MG Orally Twice a day not defined Rawson 3 [facility] 90[address]-50778 1000 MG Orally Once a day 1 capsule Procedures Procedure Coding System Code Date Office Visit, Est Pt., Level 3 CPT-4 34925 May 15, 2016 TDAP (BOOSTRIX) CPT-4 99274 May 15, 2016 [facility] VISIT ESTABLISHED PATIENT CPT-4 G0467 May 15, 2016 SINGLE IMMUNIZATION ADMIN CPT-4 96599 May 15, 2016 Vital Signs Date/Time: May 15, 2016 Cardiac Monitoring Heart Rate 76 bpm Weight 133.4 lbs Height 61.5 in BMI 24.79 Index Blood Pressure Diastolic 66 mmHg Blood Pressure Systolic 118 mmHg Results No Known Results Immunizations Vaccine Administration Date TDAP (BOOSTRIX) May 15, 2016 Summary Purpose [employer]Works Submission
--- OUTSIDE RECORDS SUMMARY | 2017-02-14 11:29 | XMS REPORT ---
Author Author ROGER HERNANDEZ [facility] eClinicalWorks Address Unknown Phone Unavailable Care Team Providers Care Receiver Setter Name Role Phone ROGER HERNANDEZ CP Unavailable [...]
--- OUTSIDE RECORDS SUMMARY | 2017-02-14 11:29 | XMS REPORT ---
Author Author ANGELINE GUZMAN Organization [employer] Address Unknown Phone Unavailable Care Team Providers Care Construction Area Manager Name Role Phone ANGELINE GUZMAN CP Unavailable [...] I50.9 Active Problem Neuropathy G62.9 Active Problem History of PCOS Z87.42 Active Problem History of aortic valve replacement Z95.2 Active Problem GERD (gastroesophageal reflux disease) K21.9 Active Problem History of renal transplant Z94.0 Active Problem Depression F32.9 Active Problem Routine health maintenance Z00.00 Active Medications Medication Code System Code Instructions Start Date End Date Status Dosage Alprazolam [facility] [address]-89 0.5 MG Orally Once a day at bedtime 1 tablet Results No Known Results Summary Purpose [employer] Submission
--- OUTSIDE RECORDS SUMMARY | 2017-02-14 11:30 | XMS REPORT ---
Author Author ANGELINE GUZMAN Organization [employer] Address Unknown Phone Unavailable Care Team Providers Care Spray Mixer Name Role Phone ANGELINE GUZMAN CP Unavailable Allergies, Adverse Reactions, Alerts Substance Reaction Event Type Morphine Sulfate Info Not Available Drug Allergy Codeine Sulfate Info Not Available Drug Allergy Problems Problem Type Condition Code Onset Dates Condition Status Problem CHF (congestive heart failure) I50.9 Active Problem GERD (gastroesophageal reflux disease) K21.9 Active Problem Neuropathy G62.9 Active Assessment Panic attacks F41.0 Active Assessment Dyspnea R06.00 Active Problem HTN (hypertension) I10 Active Problem Routine health maintenance Z00.00 Active Problem Accessory skin tags Q82.8 Active Problem History of PCOS Z87.42 Active Problem Depression F32.9 Active Problem History of renal transplant Z94.0 Active Problem History of aortic valve replacement Z95.2 Active Medications Medication Code System Code Instructions Start Date End Date Status Dosage Sertraline HCl [facility] 59045745068 25 MG Orally Once a day 1 tablet Azopt [facility] [address]-57 1 % Ophthalmic 2 times a day 1 drop OD twice a day Potassium Chloride [facility] [address]-40 20 MEQ Orally Once a day 1 tab Gabapentin [facility] 30889429367 300 MG TAKE TWO CAPSULES BY MOUTH THREE TIMES DAILY Alprazolam [facility] [address]-67 0.5 MG Orally Once a day at bedtime 1 tablet Azithromycin [facility] [address]-31 250 MG Orally Once a day October 15, 2015 October 20, 2015 2 tablets on the first day, then 1 tablet daily for 4 days Mycophenolic Acid [facility] [address]-21 360 MG Orally Twice a day 1 tablets on an empty stomach Calmoseptine [facility] [address]-12 0.44-20.6 % Externally Once a day Jul 20, 2015 apply 1 inch to affected area Probiotic [facility] 740[address] 1 Orally Once a day not defined Flonase [facility] [address]-30 50 MCG/ACT Nasally Once a day as needed 1 spray in each nostril PredniSONE [facility] [address]-68 10 mg Orally Once a day October 15, 2015October 1 tablet Nephro-Rodrick Rx [facility] [address]-17 1 MG Orally Once a day 1 tablet Lonetree 3 [facility] [address]396 1000 MG Orally Once a day 1 capsule Scopolamine [facility] [address]-85 1 MG/3DAYS Transdermal change every third day Jul 27, 2015 1 patch to skin as needed Furosemide [facility] 16854150868 40 MG TAKE ONE TABLET BY MOUTH ONCE DAILY Imodium A-D [facility] [address]-10 2 MG Orally 8 time(s) a day as needed 1 tablet Tacrolimus [facility] [address]-61 1 MG Orally Twice a day not defined Famotidine [facility] [address]-64 20 MG Orally Once a day 1 tablet at bedtime Aspirin [facility] [address]-58 81 MG Orally 2 times a day 1 tablet MiraLax [facility] [address]-47 17 gm/dose Orally Once a day as needed 17 grams mixed in 8 oz of water or juice Procedures Procedure Coding System Code Date CHEST X-RAY CPT-4 87698 October 15, 2015 [facility] CPT-4 NOBLL October 15, 2015 MEASURE BLOOD OXYGEN LEVEL CPT-4 31444 October 15, 2015 Office Visit, Est Pt., Level 3 CPT-4 62638 October 15, 2015 [facility] VISIT ESTABLISHED PATIENT CPT-4 G0467 October 15, 2015 Vital Signs Date/Time: October 15, 2015 Temperature 97.6 F Weight 123.0 lbs Height 61.5 in Oximetry 100 % Blood Pressure Diastolic 68 mmHg Blood Pressure Systolic 110 mmHg Cardiac Monitoring Heart Rate 68 bpm BMI 22.86 Index Results No Known Results Summary Purpose [employer]ClinicalWorks Submission
--- OUTSIDE RECORDS SUMMARY | 2017-02-14 11:30 | XMS REPORT ---
Author Author ANGELINE GUZMAN Organization [employer] Address Unknown Phone Unavailable Care Team Providers Care Grooving Lathe Tender Name Role Phone ANGELINE GUZMAN CP Unavailable [...] Alprazolam [facility] [address]-42 0.5 MG Orally Once a day at bedtime 1 tablet Results No Known Results Summary Purpose [employer]Works Submission
--- OUTSIDE RECORDS SUMMARY | 2017-02-14 11:30 | XMS REPORT ---
Author Author TERRIE DAVIDSON [facility] eClinicalWorks Address Unknown Phone Unavailable Care Team Providers Care Straight Pin Making Machine Operator Name Role Phone TERRIE DAVIDSON CP Unavailable Allergies No Known Allergies Problems [...] I50.9 Active Problem Neuropathy G62.9 Active Assessment Anxiety F41.9 Active Problem GERD (gastroesophageal reflux disease) K21.9 Active Medications No Known Medications Procedures Procedure Coding System Code Date Psych diagnostic evaluation, established patient CPT-4 49818 January 11, 2016 [facility] VISIT MENTAL HEALTH ESTAB PT CPT-4 G0470 January 11, 2016 Results No Known Results Summary Purpose [employer]ClinicalWorks Submission
[2017-02-14] MEDS ORDERED: LIDOCAINE PF 2% 5 ML (XYLOCAINE) VIAL ONE (11:40)
[2017-02-14] MEDS ORDERED: proPOfol 200 MG/20 ML (DIPRIVAN) VIAL IV ONE (11:40)
[2017-02-14] MEDS ORDERED: MIDAZOLAM 2 MG/2 ML (VERSED) VIAL ONE (11:40)
[2017-02-14] MEDS ORDERED: SEVOFLURANE (ULTANE) 15 ML INHAL SOLN ONE ×2 (11:42→12:31)
[2017-02-14] MEDS ORDERED: DEXAMETHASONE 10 MG/ML (DECADRON) 1 ML VIAL ONE (11:42)
[2017-02-14] MEDS ORDERED: ONDANSETRON 4 MG/2 ML (SDV) Z0FRAN ONE (11:42)
[2017-02-14] MEDS ORDERED: LACTATED RINGERS 1,000 ML IV ONE (11:42)
[2017-02-14] MEDS ORDERED: ceFAZolin 1 GM/NS 50 ML IVPB IV ONE ×2 (11:45)
[2017-02-14] MEDS ORDERED: CATHETER FLUSH 10 ML SYR IV PRN (11:45)
[2017-02-14] MEDS ORDERED: HYDROcodone/APAP 7.5 MG/325 MG (LORTAB, LORCET PLUS) TABLET PO PRN (11:45)
[2017-02-14] MEDS ORDERED: LACTATED RINGERS 1,000 ML IV PRN (12:38)
[2017-02-14] MEDS ORDERED: fentaNYL INJECTION 100 MCG/2 ML AMP IVP PRN (13:00)
[2017-02-14] MEDS ORDERED: ONDANSETRON 4 MG/2 ML (SDV) Z0FRAN IVP PRN (13:00)
[2017-02-14 13:40] VITALS: BP 111/83
[2017-02-14] MEDS ORDERED: FURO40TA4 PO (14:05)
[2017-02-14] MEDS ORDERED: HYDR-3816 PO (14:08)
[2017-02-14 14:15] VITALS: BP 110/52
[2017-02-14 14:35] VITALS: BP 110/52
--- NOTE | 2017-02-14 14:42 | OPERATIVE REPORT ---
DATE OF SERVICE: PREOPERATIVE DIAGNOSIS: Left upper thigh retained hematoma. POSTOPERATIVE DIAGNOSIS: Left upper thigh retained hematoma. PROCEDURE PERFORMED: Left upper thigh hematoma excision. SURGEON: Giuseppe Song MD ANALYSIS OR RESEARCH SAFETY INSPECTOR: MEL Wilhelm, who assisted throughout the procedure and closed the incision. ANESTHESIA: General endotracheal by Dr. Pearson. ESTIMATED BLOOD LOSS: Minimal. DRAINS: None. COMPLICATIONS: None. POSTOPERATIVE PLAN Progressive activities as symptoms allow. The patient was transported to recovery room in awake and in stable condition. STATEMENT OF MEDICAL NECESSITY: The patient is a 66-year-old female, who fell on her left buttock several months ago and has had pain and a mass in that area consistent with a hematoma since that time. This has failed to resolve with observation and due to the discomfort with sitting as well as with walking, the patient elected to proceed with surgical intervention. PROCEDURE PERFORMED: After risks and benefits of the procedure were discussed and questions were answered, an informed consent was signed and placed on the chart. The operative site was confirmed in the preoperative holding area and initialed by the surgeon. The patient was then transported to the operating room. After adequate levels of general endotracheal anesthetic were obtained, the patient was carefully placed in the right lateral decubitus position, being careful in placing axillary roll and padding all bony prominences. The left hip and buttock areas were prepped and draped in the usual sterile fashion. A longitudinal incision was made over the hematoma. The fascia was incised exposing the hematoma, which was then evacuated in its entirety. Findings were consistent with an old hematoma. Hemostasis was obtained with cautery. The wound was copiously irrigated, 3-0 Vicryl was used to reapproximate subcutaneous tissue and the skin was closed with 4-0 nylon in a vertical mattress interrupted fashion. A soft dressing was applied. The patient was transported to the recovery room in awake and stable condition. Job ID: [id number] DocumentID: [id number] Dictated Date: 02/14/2017 12:42:19 Die Cleaner Date: 02/14/2017 13:59:28 Dictated By: GIUSEPPE SONG MD
== END 2017-02-14 14:35 | disposition home or self-care (01) ==
LOC: SDC 10:50
PROVIDERS: ATTEND Orthopaedic Surgery
DX: S30.0XXA Contusion of lower back and pelvis, initial encounter (principal); W19.XXXA Unspecified fall, initial encounter; E78.5 Hyperlipidemia, unspecified; I10 Essential (primary) hypertension; I48.91 Unspecified atrial fibrillation; G62.9 Polyneuropathy, unspecified; I25.10 Atherosclerotic heart disease of native coronary artery without angina pectoris; F32.9 Major depressive disorder, single episode, unspecified; Z94.0 Kidney transplant status; Z95.2 Presence of prosthetic heart valve; Z90.5 Acquired absence of kidney; Z79.899 Other long term (current) drug therapy

== ENCOUNTER → 2017-07-23 | Outpatient (CLI) | payer MEDICARE, OTHER ==
[~2017-07-23] MED LIST changes: +HYDR-34 PO
[2017-07-23 15:29] LABS: BASOPHILS % (AUTO) 0 % (0-10); EOSINOPHILS # (AUTO) 0.1 10^3/uL (0.0-0.3); EOSINOPHILS % (AUTO) 1 % (0-10); HEMATOCRIT 39 % (35-52); HEMOGLOBIN 14.2 G/DL (11.5-16.0); LYMPHOCYTES # (AUTO) 1.2 X 10^3 (1.0-4.0); LYMPHOCYTES % (AUTO) 9 % (12-44); MEAN CORPUSCULAR HEMOGLOBIN 31 PG (25-34); MEAN CORPUSCULAR HGB CONC 36 G/DL (32-36); MEAN CORPUSCULAR VOLUME 85 FL (80-99); MEAN PLATELET VOLUME 10.2 FL (7.4-10.4); MONOCYTES # (AUTO) 1.3 X 10^3 (0.0-1.0); MONOCYTES % (AUTO) 9 % (0-12); NEUTROPHILS # (AUTO) 10.8 X 10^3 (1.8-7.8); NEUTROPHILS % (AUTO) 81 % (42-75); PLATELET COUNT 229 10^3/uL (130-400); RED BLOOD COUNT 4.63 10^6/uL (4.35-5.85); RED CELL DISTRIBUTION WIDTH 13.2 % (10.0-14.5); WHITE BLOOD COUNT 13.4 10^3/uL (4.3-11.0)
--- NOTE | 2017-07-23 15:49 | Diagnostic Imaging Report ---
PROCEDURE: CT abdomen and pelvis without contrast. TECHNIQUE: Multiple contiguous axial images were obtained through the abdomen and pelvis without the use of intravenous contrast. INDICATION: Low abdominal pain and diarrhea. COMPARISON: There are no prior studies available for comparison. 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 The transplanted kidney is evident on this study and is in close proximity to the right iliac crest. There is no sign of hydronephrosis of the transplanted kidney, and there is no distortion of the perinephric fat either. There is no pelvic mass or free fluid collection noted. The uterus is surgically absent. The urinary bladder is only partially filled and consequently difficult to assess. There does appear to be a minute 1 mm calculus within the bladder. The appendix was visualized and does not seem to be abnormally thickened. The appendix does appear to course along the anterior aspect of the transplanted kidney. The liver, spleen, pancreas, adrenals, gallbladder, aorta, and inferior vena cava are unremarkable for an acute abnormality. The stomach is partially filled with fluid and particulate matter and consequently difficult to assess. The lung bases are clear. There is no obvious breast mass. The bone windows show no sign of a fracture or of a destructive lesion. IMPRESSION: 1. There is a transplanted kidney in the right pelvis. The kidney does not appear to be obstructed, and there is no distortion of the perinephric fat to suggest an acute abnormality of the kidney. 2. There is no other acute abnormality of the abdomen or pelvis identified. 3. There is a minute calculus within the urinary bladder. Dictated by: Dictated on workstation # [id number]
[2017-07-23 15:52] LABS: ALBUMIN 4.2 GM/DL (3.2-4.5); BAND NEUTROPHILS 1 %; BASOPHILS % (MANUAL) 1 %; CALCIUM 9.4 MG/DL (8.5-10.1); CREATININE SERUM 1.21 MG/DL (0.60-1.30); EOSINOPHILS % (MANUAL) 1 %; LYMPHOCYTES % (MANUAL) 13 %; MONOCYTES % (MANUAL) 10 %; NEUTROPHILS % (MANUAL) 74 %; POTASSIUM 4.1 MMOL/L (3.6-5.0); TOTAL PROTEIN 7.4 GM/DL (6.4-8.2)
[2017-07-23 15:53] LABS: RBC MORPH NORMAL
== END ==
LOC: RAD 14:38
PROVIDERS: ATTEND Clinical Nurse Specialist Emergency
DX: R10.30 Lower abdominal pain, unspecified (principal); R19.7 Diarrhea, unspecified; Z94.0 Kidney transplant status
CPT/HCPCS: 36415; 74176; 80053; 85007; 85027

== ENCOUNTER → 2017-08-07 | Outpatient (CLI) | payer MEDICARE, OTHER | LOC: RAD 07:30 | PROVIDERS: ATTEND Obstetrics & Gynecology | DX: Z12.31 Encounter for screening mammogram for malignant neoplasm of breast (principal) | CPT/HCPCS: 77067 ==

== ENCOUNTER → 2018-10-01 | Outpatient (CLI) | payer MEDICARE, OTHER ==
[~2018-10-01] MED LIST changes: -AMIO200T2 PO; +AMIO200T4 PO; +CLON0.5T13 PO; -CLON0.5T3 PO; -GABA600T2 PO; +GBPN600T PO
--- NOTE | 2018-10-01 13:49 | Diagnostic Imaging Report ---
INDICATION: Screening for osteoporosis. COMPARISON: None. FINDINGS: The bone mineral density of the hips and spine was measured. The T-score for the spine is 2.0. The T-score for left hip is 0.2 and for the right hip 0.6. The T-score for the left femoral neck is 0.0 and for the right femoral neck 0.3. All of these values are within normal limits. AP Spine L1-L4: [BMD (g/cm2): 1.444] [T-Score: 2.0] [Z-Score: 3.7] [BMD Previous: N/A] [BMD % Change: N/A] LT Hip Neck: [BMD (g/cm2): 1.045] [T-Score: 0.0] [Z-Score: 1.7] LT Hip Total: [BMD (g/cm2):1.038] [T-Score:0.2] [Z-Score: 1.6] [BMD Previous: N/A] [BMD % Change: N/A] RT Hip Neck: [BMD (g/cm2):1.085] [T-Score:0.3] [Z-Score:2.0] RT Hip Total: [BMD (g/cm2):1.083] [T-score:0.6] [Z-Score:2.0] [BMD Previous:N/A] [BMD % Change:N/A] *Indicates significant change from prior examination based on 95% confidence level. World Health Organization criteria for BMD interpretation classify patients as Normal (T-score at or above -1.0), Osteopenic (T-score between -1.0 and -2.5) or Osteoporotic (T-score at or below -2.5). LIMITATIONS AND MODIFICATION: None. FRACTURE RISK (FRAX SCORE): The ten year probability of (%): Major Osteoporotic Fracture: [N/A] Hip Fracture: [N/A] IMPRESSION: 1. The bone mineral density of the hips and spine is within normal limits. 2. See below National Osteoporosis Foundation guidelines on when to potentially initiate pharmacologic therapy. Based on the National Osteoporosis Foundation Guidelines, pharmacologic treatment should be initiated in any of the following, unless clinical conditions suggest otherwise: * Any patient with prior fragility fracture of the hip or vertebrae. A spine fracture indicates 5X risk for subsequent spine fracture and 2X risk for subsequent hip fracture. * Osteoporosis (T-score <-2.5). * Postmenopausal women and men age 50 and older with low bone mass/osteopenia (T-score between -1.0 and -2.5) by DXA and 10-year major osteoporotic fracture greater than 20% or a 10-year probability of hip fracture greater than 3%. These fracture risks are supplied above in the FRAX score, if applicable. * Clinician judgement and/or patient preferences may indicate treatment for people with 10-year fracture probabilities above or below these levels. Dictated by: Dictated on workstation # [id number]
--- NOTE | 2018-10-01 18:04 | Diagnostic Imaging Report ---
INDICATION: Routine screening. Comparison is made with prior mammograms from 08/07/2017 and 08/11/2013. 2-D and 3-D bilateral screening mammography was performed with Computer-Aided Detection (CAD) system. FINDINGS: Both breasts remain heterogeneously dense, limiting the sensitivity of mammography. Benign parenchymal and vascular calcifications are noted bilaterally. The parenchymal pattern is stable. No mass or malignant-appearing microcalcifications are seen. The axillae are unremarkable. IMPRESSION: No mammographic features suspicious for malignancy are identified. ACR BI-RADS Category 2: Benign findings. Result letter will be mailed to the patient. Note: At least 10% of breast cancer is not imaged by mammography. Dictated by: Dictated on workstation # [id number]
== END ==
LOC: RAD 09:12
PROVIDERS: ATTEND Nurse Practitioner Primary Care
DX: Z12.31 Encounter for screening mammogram for malignant neoplasm of breast (principal); Z13.820 Encounter for screening for osteoporosis; Z00.00 Encounter for general adult medical examination without abnormal findings; N95.9 Unspecified menopausal and perimenopausal disorder
CPT/HCPCS: 77067; 77080

== ENCOUNTER 2020-03-23 00:12 | Inpatient (IN) | payer MEDICARE, OTHER ==
[2020-03-23] VITALS (7 sets, daily range): BP systolic 128–158; BP diastolic 70–84
[~2020-03-23] VITALS: Ht 152 cm; Wt 52.4 kg
[~2020-03-23 00:12] MED LIST changes: -CLON0.5T13 PO; +CLON0.5T4 PO; +CYAN-41 PO; -CYAN10006 PO; -METO-387 PO; +MTP25TSR PO; -TACR1CAP PO; +TACR1CAP24 PO
[2020-03-23] MEDS ORDERED: NS IV 500 ML 500 ML IV ONE (00:28)
[2020-03-23 00:34] LABS: BASOPHILS % (AUTO) 0 % (0-10); EOSINOPHILS % (AUTO) 0 % (0-10); HEMATOCRIT 41 % (35-52); HEMOGLOBIN 13.7 g/dL (11.5-16.0); LYMPHOCYTES % (AUTO) 8 % (12-44); MEAN CORPUSCULAR HEMOGLOBIN 29 pg (25-34); MEAN CORPUSCULAR HGB CONC 34 g/dL (32-36); MEAN CORPUSCULAR VOLUME 87 fL (80-99); MONOCYTES # (AUTO) 0.9 10^3/uL (0.0-1.0); MONOCYTES % (AUTO) 7 % (0-12); NEUTROPHILS # (AUTO) 10.2 10^3/uL (1.8-7.8); NEUTROPHILS % (AUTO) 84 % (42-75); PLATELET COUNT 195 10^3/uL (130-400); WHITE BLOOD COUNT 12.2 10^3/uL (4.3-11.0)
[2020-03-23 00:37] LABS: ALBUMIN 3.9 GM/DL (3.2-4.5); CHLORIDE 99 MMOL/L (98-107); POTASSIUM 3.9 MMOL/L (3.6-5.0); SODIUM 136 MMOL/L (135-145)
[2020-03-23 00:39] LABS: CALCIUM 9.1 MG/DL (8.5-10.1)
[2020-03-23 00:40] LABS: GLUCOSE 115 MG/DL (70-105); TOTAL PROTEIN 7.1 GM/DL (6.4-8.2)
--- NOTE | 2020-03-23 00:40 | ED Fall/Injury ---
General Chief Complaint: Trauma-Non Activation Stated Complaint: CAN'T FEEL LEGS Nursing Triage Note: TO ED [facility]IA [facility] TO ROOM 5 WITH C/O RECENT FALLS LATELY. NEW DX [facility]. TONIGHT "COULDN'T GET FEET UNDER ME" AND COULDN'T HELP HER GET UP. STATES FELL ON SUNDAY AND HIT HEAD WITH NO LOC. Source: patient (GRACE HO,MED STUDENT) History of Present Illness Date Seen by Provider: Mar 23, 2020 Time Seen by Provider: 00:13 Initial Comments 69yo female presents to the ER because she "could not get her feet under her." Patient says that her was helping to stand up but she could not feel her legs and did not feel steady when she tired to stand. She reports falling on the ground and hitting her head on Sunday. At this time in the ER she can feel her legs and move them. She denies having any pain at this time. She mentions that she is suppose to have a CT head and echocardiogram later this month. Occurred: this morning Injuries/Pain Location: no injury Loss of Consciousness: no loss of consciousness Associated Symptoms (Fall): Denies Symptoms (GRACE HO,MED STUDENT) Initial Comments On discussion with the , he reports that she has gotten weaker over the past couple of days and was weak this morning but then was better this afternoon and was actually walking with just her cane. Tonight he heard her call out and she had apparently got out of bed and tried to go to the bathroom when she was too weak to get up. She did have falls earlier this week but not significant fall tonight. She does have bruising to her face related to those falls. Denies other injuries or neck pain. Main complaint tonight is the weakness. She does have history of kidney transplant and is on tacrolimus. That has been stable for a few years. She follows at [facility] and her transplant was done at [facility]. Loss of Consciousness: no loss of consciousness Associated Symptoms (Fall): Nausea/Vomiting, Other (global weakness) (ROYCE OBREGON MD) Allergies and Home Medications Allergies Coded Allergies: codeine (Unverified Allergy, Unknown, 02/12/17) morphine (Verified Allergy, Unknown, NAUSEA, 02/12/17) Home Medications Alosetron HCl 0.5 Mg Tab, 0.5 MG PO BID, (Reported) Aripiprazole 2 Mg Tablet, 2 MG PO HS, (Reported) Ascorbate Calcium 500 Mg Tablet, 500 MG PO DAILY, (Reported) Aspirin 81 Mg Tablet.dr, 81 MG PO DAILY, (Reported) Baclofen 10 Mg Tablet, 5 MG PO DAILY, (Reported) Brinzolamide 10 Ml Btl, 1 DROP OD BID, (Reported) Clonazepam 0.5 Mg Tablet, 0.5 MG PO BID, (Reported) Cranberry Fruit Concentrate 450 Mg Capsule, 450 MG PO BID, (Reported) Famotidine 20 Mg Tablet, 20 MG PO DAILY, (Reported) Fluticasone Propionate 16 Gm [place], 1 SPRAY NS UD PRN for CONGESTION, (Reported) Furosemide 40 Mg Tablet, 40 MG PO 1600, (Reported) Furosemide 40 Mg Tablet, 40 MG PO DAILY Prescribed by: SHAWNA AQUINO on 02/14/17 1405 Gabapentin 300 Mg Capsule, 600 MG PO TID, (Reported) TAKES 2 (300 MG) CAPSULES Hydrocodone Bit/Acetaminophen 1 Each Tablet, 1-2 EACH PO Q4H Prescribed by: SHAWNA AQUINO on 02/14/17 1408 L.acidoph & Paracasei,B.lactis 1 Each Capsule, 1 CAP PO BID, (Reported) Loperamide HCl/Simethicone 1 Each Tablet, 1 TAB PO DAILY PRN for DIARRHEA, (Reported) Mycophenolate Sodium 360 Mg Tablet.dr, 360 MG PO BID, (Reported) Polyethylene Glycol 3350 17 Gm Powd.pack, 17 GM PO DAILY PRN for CONSTIPATION, (Reported) Potassium Chloride 20 Meq Tablet.er, PO DAILY, (Reported) Tacrolimus 1 Mg Capsule, 1 MG PO BID, (Reported) Vit B Cmplx 3/FA/Vit C/Biotin 1 Each Tablet, 1 EACH PO DAILY, (Reported) Patient Home Medication List Home Medication List Reviewed: Yes (ROYCE OBREGON MD) Review of Systems Review of Systems Constitutional: No chills, No diaphoresis, No dizziness, No fever, No malaise, No weakness Eyes: Denies Blindness, Denies Vision Changes Respiratory: No cough, No dyspnea on exertion, No short of breath Cardiovascular: No chest pain, No edema Gastrointestinal: No abdominal pain, No constipation, No diarrhea Genitourinary: No dysuria, No frequency, No incontinence, No pain Musculoskeletal: No back pain, No joint pain, No joint swelling, No muscle pain, No muscle stiffness, No neck pain Psychiatric/Neurological: Anxiety; Denies Headache; Numbness (bilateral lower legs ); Denies Tingling; Tremors (GRACE HO MED STUDENT) Constitutional: No chills, No fever Respiratory: No cough Gastrointestinal: nausea, vomiting Genitourinary: No dysuria, No pain Musculoskeletal: muscle weakness; No neck pain (ROYCE OBREGON MD) All Other Systems Reviewed Negative Unless Noted: Yes (ROYCE OBREGON MD) Past Aijqfzy-Uljmir-Hnmhtm Hx Past Med/Social Hx: Reviewed Nursing Past Med/Soc Hx (ROYCE OBREGON MD) Patient Social History Alcohol Use: Denies Use Recreational Drug Use: No Smoking Status: Never a Smoker 2nd Hand Smoke Exposure: No Recent Foreign Travel: No Contact w/Someone Who Travel: No Recent Infectious Disease Expo: No Recent Hopitalizations: Yes (DECEMBER 2016-) Physical Abuse: No Sexual Abuse: No Mistreated: No Fear: No (GRACE HO MED STUDENT) Immunizations Up To Date Tetanus Booster (TDap): Unknown PED Vaccines UTD: No Date of Pneumonia Vaccine: Jun 18, 2014 Date of Influenza Vaccine: Mar 24, 2016 (GRACE HO MED STUDENT) Seasonal Allergies Seasonal Allergies: Yes (GRACE HO MED STUDENT) Past Medical History Surgeries: Yes (COCHLEAR IMPLANT, CARDIAC ABLATION, AORTIC VALVE, KIDNEY TRANSPLANT) Appendectomy, Cardiac, Hysterectomy, Nephrectomy, Oophorectomy, Orthopedic, Renal, Tonsillectomy, Valve Replacement Respiratory: Yes Pneumonia Currently Using CPAP: No Currently Using BIPAP: No Cardiac: Yes ( CHF) Atrial Fibrillation, Hypertension, Valvular Heart Disease Neurological: Yes Neuropathy, Parkinson's Disease Reproductive Disorders: No Sexually Transmitted Disease: No HIV/AIDS: No Genitourinary: Yes (kidney transplant) Polycystic Kidney Disease Gastrointestinal: Yes (HX C-DIFF) Chronic Diarrhea Musculoskeletal: Yes Degenerate Disk Disease, Arthritis Endocrine: No HEENT: Yes (left artificial eye, cochlear implant) Cataract Hearing Impairment: Hard of Hearing, Hearing Aide Left Cancer: Yes Kidney Psychosocial: Yes Anxiety, Depression Integumentary: No Blood Disorders: No Adverse Reaction/Blood Tranf: No (HAS HAD BLOOD WITH NO REACTION) (GRACE HO MED STUDENT) Family Medical History Reviewed Nursing Family Hx (ROYCE OBREGON MD) Patient reports no known family medical history. No Pertinent Family Hx (GRACE HO MED STUDENT) Physical Exam Vital Signs Vital Signs - First Documented 03/23/20 00:14 Temp 37.2 Pulse 93 Resp 16 B/P (MAP) 129/68 (88) O2 Delivery Room Air (ROYCE OBREGON MD) Vital Signs Capillary Refill : Less Than 3 Seconds (GRACE HO MED STUDENT) Height, Weight, BMI Height: 5'1.00" Weight: 127lbs. 1.0oz. 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 tested, alert, normal mood/affect; No aphasia, No facial droop; motor weakness (4/5); No sensory deficit Skin: normal color, warm/dry (GRACE HO MED STUDENT) General Appearance: WD/WN, no apparent distress HEENT: No pharyngeal erythema; other (artificial eye on the left and a cochlear implant on the right) Cardiovascular: regular rate, rhythm, no murmur Respiratory: lungs clear, no respiratory distress Gastrointestinal: non tender, soft Neurologic/Psychiatric: alert, normal mood/affect Skin: normal color, warm/dry (ROYCE OBREGON MD) [place] Coma Score Best Eye Response: (4) Open Spontaneously Best Verbal Response: (5) Oriented Best Motor Response: (6) Obeys Commands (ROYCE OBREGON MD) Progress/Results/Core Measures Results/Orders Lab Results Laboratory Tests Test 03/23/20 00:15 03/23/20 00:36 03/23/20 01:12 Range/Units White Blood Count 12.2 H 4.3-11.0 10^3/uL Red Blood Count 4.67 3.80-5.11 10^6/uL Hemoglobin 13.7 11.5-16.0 g/dL Hematocrit 41 35-52 % Mean Corpuscular Volume 87 80-99 fL Mean Corpuscular Hemoglobin 29 25-34 pg Mean Corpuscular Hemoglobin Concent 34 32-36 g/dL Red Cell Distribution Width 12.8 10.0-14.5 % Platelet Count 195 130-400 10^3/uL Mean Platelet Volume 11.0 9.0-12.2 fL Immature Granulocyte % (Auto) 0 % Neutrophils (%) (Auto) 84 H 42-75 % Lymphocytes (%) (Auto) 8 L 12-44 % Monocytes (%) (Auto) 7 0-12 % Eosinophils (%) (Auto) 0 0-10 % Basophils (%) (Auto) 0 0-10 % Neutrophils # (Auto) 10.2 H 1.8-7.8 10^3/uL Lymphocytes # (Auto) 1.0 1.0-4.0 10^3/uL Monocytes # (Auto) 0.9 0.0-1.0 10^3/uL Eosinophils # (Auto) 0.0 0.0-0.3 10^3/uL Basophils # (Auto) 0.0 0.0-0.1 10^3/uL Immature Granulocyte # (Auto) 0.1 0.0-0.1 10^3/uL Sodium Level 136 135-145 MMOL/L Potassium Level 3.9 3.6-5.0 MMOL/L Chloride Level 99 98-107 MMOL/L Carbon Dioxide Level 23 21-32 MMOL/L Anion Gap 14 5-14 MMOL/L Blood Urea Nitrogen 8 7-18 MG/DL Creatinine 0.78 0.60-1.30 MG/DL Estimat Glomerular Filtration Rate > 60 BUN/Creatinine Ratio 10 Glucose Level 115 H 70-105 MG/DL Calcium Level 9.1 8.5-10.1 MG/DL Corrected Calcium 9.2 8.5-10.1 MG/DL Total Bilirubin 1.2 H 0.1-1.0 MG/DL Aspartate Amino Transf (AST/SGOT) 21 5-34 U/L Alanine Aminotransferase (ALT/SGPT) 12 0-55 U/L Alkaline Phosphatase 61 40-136 U/L C-Reactive Protein High Sensitivity 10.64 H 0.00-0.50 MG/DL Total Protein 7.1 6.4-8.2 GM/DL Albumin 3.9 3.2-4.5 GM/DL Urine Color YELLOW Urine Clarity CLOUDY Urine pH 6.0 5-9 Urine Specific Heath <=1.005 1.016-1.022 Urine Protein NEGATIVE NEGATIVE Urine Glucose (UA) NEGATIVE NEGATIVE Urine Ketones NEGATIVE NEGATIVE Urine Nitrite POSITIVE H NEGATIVE Urine Bilirubin NEGATIVE NEGATIVE Urine Urobilinogen 2.0 < = 1.0 MG/DL Urine Leukocyte Esterase TRACE H NEGATIVE Urine RBC (Auto) NEGATIVE NEGATIVE Urine RBC 0-2 /HPF Urine WBC 0-2 /HPF Urine Squamous Epithelial Cells RARE /HPF Urine Crystals NONE /LPF Urine Bacteria MODERATE H /HPF Urine Casts NONE /LPF Urine Mucus NEGATIVE /LPF Urine Culture Indicated YES Lactic Acid Level 0.99 0.50-2.00 MMOL/L (ROYCE OBREGON MD) My Orders Orders - ROYCE OBREGON MD Ct Head/Cervical Spine Wo (03/23/20:28) Cbc With Automated Diff (03/23/20:28) Comprehensive Metabolic Panel (03/23/20:28) Hs C Reactive Protein (03/23/20:28) Ua Culture If Indicated (03/23/20:28) Ed Iv/Invasive Line Start (03/23/20:28) Ns Iv 500 Ml (Sodium Chloride 0.9%) (03/23/20 00:28) Urine Culture (03/23/20 00:36) Lactic Acid Analyzer (03/23/20 01:00) Blood Culture (03/23/20 01:00) Ceftriaxone For Iv Use (Rocephin For I (03/23/20 01:00) (ROYCE OBREGON MD) Medications Given in ED Current Medications Medications Dose Ordered Sig/Lizzie Route Start Time Stop Time Status Last Admin Dose Admin Sodium Chloride 500 ml @ 0 mls/hr Q0M ONCE IV 03/23/20 00:28 03/23/20 00:29 DC 03/23/20 00:35 999 MLS/HR (ROYCE OBREGON MD) Vital Signs/I&O 03/23/20 00:14 Temp 37.2 Pulse 93 Resp 16 B/P (MAP) 129/68 (88) O2 Delivery Room Air (ROYCE OBREGON MD) Blood Pressure Mean: 88 Progress Progress Note : Progress Note I have seen and examined this patient, she is a 69yo female with a recent diagnosis of Parkinson disease that presented to the ER today with a c/o of not being able to feel her legs and a recent fall on Sunday. On examine patient has resting and intention tremor and 4/5 strength in her upper and lower extremities on testing. She does not have any gross deficits in sensation on testing but does endorse numbness in her lower extremities. We plan to do a CT head and neck, CBC, CMP, and UA. There is no concern for cauda equina syndrome at this time because patient denies saddle anesthesia, urinary retention, and fecal incontinence. (GRACE HO,MED STUDENT) Progress Note : Progress Note I have seen and evaluated the patient and agree with above except as indicated. I have directed the plan of care. IV, labs, UA and CT of the head and neck ordered. Normal saline 500 mL bolus ordered. Monitor patient. 0120: UA nitrite positive. Blood cultures and lactic acid ordered. We will give Rocephin 1 g IV after. Inpatient admission is indicated due to UTI with history of kidney transplant and weakness as well as nausea and vomiting requiring IV antibiotics. I did discuss this with the patient and her who both agree. I did talk with her on the phone (Romeo at [phone]) and he agreed with plan. He is available at this phone number if needed for information since the visitor policy does not allow visitors currently. [phone]: I did discuss the case with Dr. Gerber and she accepts patient for admission, inpatient status. I did discuss the case with Dr. Cha due to fall. Patient is being admitted for urinary tract infection and not head injury. No further trauma evaluation needed at this time. Patient and family agree with plan. (ROYCE OBREGON MD) Diagnostic Imaging Diagonstic Imaging: CT Plain Films/CT/US/NM/MRI: c-spine, head Comments No acute intracranial abnormality. New bilateral mastoid effusions. No acute fracture of the cervical spine. Reviewed: Reviewed [place] Study, Reviewed by Me (ROYCE OBREGON MD) Focused Exam Lactate Level 03/23/20 01:12: Lactic Acid Level 0.99 (ROYCE OBREGON MD) Lactic Acid Level Laboratory Tests Test 03/23/20 01:12 Lactic Acid Level 0.99 MMOL/L (0.50-2.00) (ROYCE OBREGON MD) Departure Communication (Admissions) Time/Spoke to Admitting Phy: 01:55 (ROYCE OBREGON MD) Impression Primary Impression: Urinary tract infection Qualified Codes: N30.00 - Acute cystitis without hematuria Additional Impressions: Parkinsons disease Kidney transplant recipient Head injury Qualified Codes: S09.90XA - Unspecified injury of head, initial encounter Disposition: ADMITTED INPATIENT Condition: Stable Admissions Decision to Admit Reason: Admit from ER (General) Decision to Admit/Date: Mar 23, 2020 Time/Decision to Admit Time: 01:30 (ROYCE OBREGON MD) Departure-Patient Inst. Referrals: [facility]/ (PCP) Primary Care Physician ANGELINE GUZMAN APRN (Family) Primary Care Physician GRACE HO,MED STUDENT Mar 23, 2020 00:40 ROYCE OBREGON MD Mar 23, 2020 01:33
[2020-03-23 00:41] LABS: CARBON DIOXIDE 23 MMOL/L (21-32)
[2020-03-23 00:42] LABS: BILIRUBIN,TOTAL 1.2 MG/DL (0.1-1.0)
[2020-03-23 00:43] LABS: ALKALINE PHOSPHATASE 61 U/L (40-136)
[2020-03-23 00:44] LABS: CREATININE SERUM 0.78 MG/DL (0.60-1.30); GFR ESTIMATED > 60
[2020-03-23 00:44] LABS: BILIRUBIN,URINE NEGATIVE (NEGATIVE); CLARITY,URINE CLOUDY; COLOR,URINE YELLOW; GLUCOSE, URINE (UA) NEGATIVE (NEGATIVE); KETONES,URINE NEGATIVE (NEGATIVE); LEUKOCYTE ESTERASE ,URINE TRACE (NEGATIVE); NITRITE,URINE POSITIVE (NEGATIVE); PROTEIN,URINE NEGATIVE (NEGATIVE)
[2020-03-23 00:45] LABS: BUN/CREATININE RATIO 10
[2020-03-23 00:47] LABS: ALANINE AMINOTRANSFERASE 12 U/L (0-55)
[2020-03-23 00:51] LABS: BACTERIA,URINE MODERATE /HPF; RBC,URINE 0-2 /HPF; SQUAMOUS EPITHELIAL CELL,UR RARE /HPF; WBC,URINE 0-2 /HPF
[2020-03-23] MEDS ORDERED: cefTRIAXone FOR IV USE 1,000 MG in WATER (STERILE) FOR INJECTION 10 ML IV STA (01:00)
--- NOTE | 2020-03-23 01:20 | NUR ---
DR. OBREGON SPOKE WITH GISELA[facility]S AT THIS TIME TO UPDATE ON CONDITION AND PENDING ADMIT TO MEDICAL UNIT.
--- NOTE | 2020-03-23 02:40 | NUR ---
GISELA TURCIOS admitted to room 406-1, with an admitting diagnosis of UTI, KIDNEY TRANSPLANT , AND HEAD INJURY on 03/23/20 from ER via STRETCHER, accompanied by ER STAFF. GISELA TURCIOS introduced to surroundings, call light, bed controls, phone, TV, temperature control, lights, meal times, smoking policy, visitor policy, side rail policy, bathrooms and showers. Patient Rights given to patient in the handbook. GISELA TURCIOS verbalizes understanding that [facility] is not responsible for the loss or damage to any personal effects or valuables that are kept in the patients posession during their hospitalization. GISELA TURCIOS verbalizes understanding of Interdisciplinary Patient Education. Patient and/or family were informed about the Rapid Response Team and its purpose.
[2020-03-23] MEDS: NS IV 1000 ML 1,000 ML IV SCH ×2 (03:38→21:07)
[2020-03-23] MEDS ORDERED: metroNIDAZOLE 500 MG/100 ML IVPB (PRE-MIX) IV SCH (06:00)
--- NOTE | 2020-03-23 06:45 | Diagnostic Imaging Report ---
PROCEDURE: CT head and CT cervical spine without contrast. TECHNIQUE: Multiple contiguous axial images were obtained through the brain and cervical spine without the use of intravenous contrast. Sagittal and coronal reformations through the cervical spine were then performed. Auto Exposure Controls were utilized during the CT exam to meet ALARA standards for radiation dose reduction. INDICATION: Status post fall, trauma to head CORRELATION STUDY: CT head 04/02/2015 FINDINGS: CT HEAD: Rather prominent artifact from a right cochlear implant limits assessment over the right cerebral hemisphere. Given this, there is generalized atrophic changes with prominence of ventricles and sulci. No definitive abnormal areas of decreased attenuation suggest edema. There is no midline shift or mass effect. Intracranial vascular calcification present without evidence for hyperdense vascular sign. There is presence of small hematoma on the right frontal scalp. Bony calvarium is intact. There is presence of bilateral mastoid effusions. 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 CT CERVICAL SPINE: Mild anterolisthesis C4 on C5 to slightly greater extent C5 on C6. Alignment otherwise anatomic. Vertebral body heights maintained. Posterior elements intact with mild hypertrophic facet arthropathy. Odontoid intact. Asymmetric disc space narrowing C6-C7 level. IMPRESSION: CT HEAD: 1. Negative for acute traumatic intracranial abnormality. 2. Small hematoma suggested in the right frontal scalp. 3. New bilateral mastoid effusions. CT CERVICAL SPINE: 1. Negative for acute fracture or traumatic subluxation. Scattered areas of [id number] cervical spondylosis. Initial report was provided by [facility]. Dictated by: Dictated on workstation # [id number]
[2020-03-23 07:10] LABS: BASOPHILS % (AUTO) 0 % (0-10); EOSINOPHILS % (AUTO) 0 % (0-10); HEMATOCRIT 37 % (35-52); HEMOGLOBIN 12.8 g/dL (11.5-16.0); LYMPHOCYTES % (AUTO) 9 % (12-44); MEAN CORPUSCULAR HEMOGLOBIN 30 pg (25-34); MEAN CORPUSCULAR HGB CONC 34 g/dL (32-36); MEAN CORPUSCULAR VOLUME 87 fL (80-99); MONOCYTES # (AUTO) 0.8 10^3/uL (0.0-1.0); MONOCYTES % (AUTO) 7 % (0-12); NEUTROPHILS # (AUTO) 9.9 10^3/uL (1.8-7.8); NEUTROPHILS % (AUTO) 84 % (42-75); PLATELET COUNT 187 10^3/uL (130-400); WHITE BLOOD COUNT 11.8 10^3/uL (4.3-11.0)
[2020-03-23] MEDS ORDERED: FLU QUAD HIGH DOSE 240 MCG/0.7 ML 2020-21 (FLUZONE) IM ONE (07:15)
[2020-03-23 07:22] LABS: CHLORIDE 104 MMOL/L (98-107); POTASSIUM 3.5 MMOL/L (3.6-5.0); SODIUM 139 MMOL/L (135-145)
[2020-03-23 07:24] LABS: CALCIUM 8.6 MG/DL (8.5-10.1); GLUCOSE 104 MG/DL (70-105)
[2020-03-23 07:26] LABS: CARBON DIOXIDE 24 MMOL/L (21-32)
[2020-03-23 07:28] LABS: CREATININE SERUM 0.67 MG/DL (0.60-1.30); GFR ESTIMATED > 60
[2020-03-23 07:29] LABS: BUN/CREATININE RATIO 10
[2020-03-23] MEDS: ONDANSETRON 4 MG/2 ML (SDV) Z0FRAN IV PRN ×2 (08:42→16:45)
[2020-03-23] MEDS: ENOXAPARIN 40 MG/0.4 ML (LOVENOX) SYR SC SCH (08:42)
--- NOTE | 2020-03-23 10:05 | NUR ---
CALLED TO LET HIM KNOW DR DRIVER WILL CALL HIM LATER TODAY. PATIENT NEEDS A BATTERY FOR HER LEFT HEARING AID AND WOULD ALSO LIKE HER CONTACTS. CALLED BACK-LEFT A MESSAGE THE 2ND TIME-WILL NEED HIM TO BRING ANTI-REJECTION MEDICATIONS
--- NOTE | 2020-03-23 10:43 | History & Physical-Hospitalist ---
LEMUEL FUNEZ MED STUDENT 03/23/20 1043: History of Present Illness HPI/Chief Complaint 69 y/o female with Hx of C. Diff and kidney transplant presented to ER for weakness and s/p fall onset 2 days ago. Patient states she was in the bathroom 2 days ago (03/21/20) when she bent over and suddenly was unable to keep her balance, causing her to fall to the floor. Patient states it was sudden weakness in her legs and denies any LOC prior to or after the fall. She reports she hit her head during the fall, causing bruising/swelling over her forehead as well as a cut lip. Her helped her up from the floor and moved her to a chair where she went to sleep. Patient woke up yesterday feeling weak but was able to get to the toilette with the help of her walker, though she felt weak in her lags again and was unable to get up. When patient's was unable to get her up, he called EMS who brought her to [facility]. She is currently feeling a little better, noting her legs do not feel as weak as they did before. She reports recent diagnosis of Parkinson's which she will be worked up for at [facility]. Patient denies CP, tachycardia, SOB, weakness anywhere other than her legs, any change in bowel or bladder habits or abdominal pain. Source: patient, other (ER note) Date Seen 03/23/20 Time Seen by a Provider: 08:07 Attending Physician Chaya Gerber DO [facility] Referring Physician Date of Admission Mar 23, 2020 at 01:45 Home Medications & Allergies Home Medications Reviewed patient Home Medication Reconciliation performed by pharmacy medication reconciliations manufacturing quality technician and/or nursing. Patients Allergies have been reviewed. Allergies Allergies Coded Allergies codeine (Unverified Allergy, Unknown, 02/12/17) morphine (Verified Allergy, Unknown, NAUSEA, 02/12/17) Past Rhtblya-Dobwrv-Wzmptu Hx Past Med/Social Hx: Reviewed Nursing Past Med/Soc Hx Patient Social History Alcohol Use: Denies Use Recreational Drug Use: No Smoking Status: Never a Smoker 2nd Hand Smoke Exposure: No Recent Foreign Travel: No Contact w/other who traveled: No Recent Hopitalizations: Yes (DECEMBER 2016-) Recent Infectious Disease Expo: No Immunizations Up To Date Tetanus Booster (TDap): Unknown Pediatric: No Date of Pneumonia Vaccine: Jun 18, 2014 Date of Influenza Vaccine: Mar 24, 2016 Seasonal Allergies Seasonal Allergies: Yes Past Medical History Surgeries: Appendectomy, Cardiac, Hysterectomy, Nephrectomy, Oophorectomy, Orthopedic, Renal, Tonsillectomy, Valve Replacement Currently Using CPAP: No Currently Using BIPAP: No Cardiac: Atrial Fibrillation, Hypertension, Valvular Heart Disease Neurological: Neuropathy, Parkinson's Disease Reproductive: No Sexually Transmitted Disease: No HIV/AIDS: No Genitourinary: Polycystic Kidney Disease Gastrointestinal: Chronic Diarrhea Musculoskeletal: Degenerate Disk Disease, Arthritis HEENT: Cataract Hearing Impairment: Hard of Hearing, Hearing Aide Left Cancer: Kidney Psychosocial: Anxiety, Depression History of Blood Disorders: No Adverse Reaction to Blood Martins: No (HAS HAD BLOOD WITH NO REACTION) Family History Reviewed Nursing Family Hx Patient reports no known family medical history. No Pertinent Family Hx Review of Systems Constitutional: No diaphoresis, No fever EENTM: hearing loss (L ear hearing aid assisted), vision loss (L eye removed, prosthetic in place) Respiratory: No short of breath, No wheezing Cardiovascular: No chest pain, No syncope Gastrointestinal: No abdominal pain, No vomiting Musculoskeletal: No muscle pain; muscle weakness (bilateral legs) Skin: other (bruising/swelling over forehead, laceration over lip) Psychiatric/Neurological: Denies Seizure; Tremors (R arm, recent Parkinsons Dx) Physical Exam Physical Exam Vital Signs Vital Signs - First Documented 03/23/20 03/23/20 00:14 02:25 Temp 37.2 Pulse 93 Resp 16 B/P (MAP) 129/68 (88) Pulse Ox 99 O2 Delivery Room Air Capillary Refill : Less Than 3 Seconds Height, Weight, BMI Height: 5'1.00" Weight: 127lbs. 1.0oz. 57.348450xt; 22.68 BMI Method:Stated General Appearance: No Apparent Distress; No Anxious Eyes: Right Eye Normal Inspection, Right Eye EOMI; Left Eye Other (Prosthetic L eye) HEENT: No Pale Conjunctivae (R), No Scleral Icterus (R) Respiratory: Lungs Clear, Normal Breath Sounds Cardiovascular: Systolic Murmur; No Tachycardia Gastrointestinal: Non Tender; No Guarding Extremity: Normal Inspection, Non Tender, No Calf Tenderness Neurologic/Psychiatric: Alert, Normal Mood/Affect, Other (slow to respond, possibly due to hearing impairment) Skin: Ecchymosis (bruising over forehead), Other (laceration over R upper lip) Results Results/Procedures Labs Laboratory Tests 03/23/20 00:15 03/23/20 07:06 Patient resulted labs reviewed. Imaging CT HEAD/CERVICAL SPINE WO PROCEDURE: CT head and CT cervical spine without contrast. TECHNIQUE: Multiple contiguous axial images were obtained through the brain and cervical spine without the use of intravenous contrast. Sagittal and coronal reformations through the cervical spine were then performed. Auto Exposure Controls were utilized during the CT exam to meet ALARA standards for radiation dose reduction. INDICATION: Status post fall, trauma to head CORRELATION STUDY: CT head 04/02/2015 FINDINGS: CT HEAD: Rather prominent artifact from a right cochlear implant limits assessment over the right cerebral hemisphere. Given this, there is generalized atrophic changes with prominence of ventricles and sulci. No definitive abnormal areas of decreased attenuation suggest edema. There is no midline shift or mass effect. Intracranial vascular calcification present without evidence for hyperdense vascular sign. There is presence of small hematoma on the right frontal scalp. Bony calvarium is intact. There is presence of bilateral mastoid effusions. 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 CT CERVICAL SPINE: Mild anterolisthesis C4 on C5 to slightly greater extent C5 on C6. Alignment otherwise anatomic. Vertebral body heights maintained. Posterior elements intact with mild hypertrophic facet arthropathy. Odontoid intact. Asymmetric disc space narrowing C6-C7 level. IMPRESSION: CT HEAD: 1. Negative for acute traumatic intracranial abnormality. 2. Small hematoma suggested in the right frontal scalp. 3. New bilateral mastoid effusions. CT CERVICAL SPINE: 1. Negative for acute fracture or traumatic subluxation. Scattered areas of tztn-tk-qkimsgyh cervical spondylosis. Initial report was provided by [facility]. Assessment/Plan Admission Diagnosis Head injury, bacteriuria, Hx kidney transplant Admission Status: Inpatient Order (span 2 midnights) Assessment and Plan Bacteriuria Head Injury Parkinsons Hx C.Diff Hx CHF Hx Kidney Transplant PO Flagyl IV Ceftriaxone PT/OT rehab eval Clinical Quality Measures DVT/VTE Risk/Contraindication: Risk Factor Score Per Nursin RFS Level Per Nursing on Admit: 4+=Very High CHAYA GERBER DO 03/23/20 1315: History of Present Illness HPI/Chief Complaint CC: Fall with UTI HPI: This is a 69yoWF clinic Pt of [facility], who has a recent diagnosis of Parkinsons severe in nature, with a tremor, who presented to the ER after sustaining a fall a couple days ago, really couldnt get moving around anymore, hard to get off the toilet, so she came in, found to have a very early UTI and has a PMH of Renal transplant so Rocephin was initiated. She appears to be a great candidate for inpatient rehab. She is very concerned about C-Diff Colitis, she had it in 2006 and she about so we will take care of that by giving Flagyl 250 TID, in addition we will wait on the urine culture that shows preliminary E. Coil and get off antibiotics as soon as possible. I did update her on phone. Source: patient, RN/MD Exam Limitations: no limitations Date Seen 03/23/20 Time Seen by a Provider: 09:00 Past Inrtntp-Xrvqna-Wmizst Hx Past Med/Social Hx: Reviewed Nursing Past Med/Soc Hx, Reviewed and Corrections made Patient Social History Marrital Status: single Employed/Student: unemployed, retired Alcohol Use: Denies Use Smoking Status: Never a Smoker Past Medical History Cardiac: Hypertension Neurological: Parkinson's Disease Genitourinary: Renal Failure kidney transplant Family History Patient reports no known family medical history. Review of Systems Constitutional: see HPI, malaise, weakness Physical Exam Physical Exam General Appearance: No Apparent Distress Respiratory: Normal Breath Sounds Cardiovascular: Regular Rate, Rhythm Neurologic/Psychiatric: Alert, Oriented x3 Assessment/Plan Admission Diagnosis Assessment: Fall UTI E coli Severe Parkinsons Plan: Antibiotics briefly to prevent C DIFF colitis Flagyl for prevention along with probiotic Admission Status: Inpatient Order (span 2 midnights) Reason for Inpatient Admission: fall PD and UTI Diagnosis/Problems Diagnosis/Problems (1) Multiple falls Status: Acute (2) Urinary tract infection Status: Acute Qualifiers: Urinary tract infection type: acute cystitis Hematuria presence: without hematuria Qualified Codes: N30.00 - Acute cystitis without hematuria (3) Head injury Status: Acute Qualifiers: Encounter type: initial encounter Qualified Codes: S09.90XA - Unspecified injury of head, initial encounter (4) Parkinsons disease Status: Acute (5) Kidney transplant recipient Status: Acute Supervisory-Addendum Brief Verification & Attestation Participated in pt care: history, MDM, physical Personally performed: exam, history, MDM, supervision of care Care discussed with: Medical Student Procedures: n/a Results interpretation: Verified all documentation Verification and Attestation of Medical Student E/M Service A medical student performed and documented this service in my presence. I reviewed and verified all information documented by the medical student and made modifications to such information, when appropriate. I personally performed the physical exam and medical decision making. Chaya Gerber, Mar 24, 2020,05:05 LEMUEL FUNEZ MED STUDENT Mar 23, 2020 10:43 CHAYA GERBER DO Mar 23, 2020 13:15
--- NOTE | 2020-03-23 11:58 | Physical Therapy Evaluation ---
PT Evaluation-General Medical Diagnosis Admission Date Mar 23, 2020 at 01:45 Medical Diagnosis: UTI/head injury/kidney transplant Onset Date: Mar 23, 2020 Therapy Diagnosis Therapy Diagnosis: debility/weakness Height/Weight Height (Feet): 5 Height (Inches): 1.00 Weight (Pounds): 127 Weight (Ounces): 1.0 Precautions Precautions/Isolations: Fall Prevention, Standard Precautions Referral Physician: Zabrina Reason for Referral: Evaluation/Treatment Medical History Pertinent Medical History: Atrial Fib, HTN, Neuropathy, Parkinson's Additional Medical History Cochlear implant Current History EMS secondary to falls at home and inability to care for self. Reviewed History: Yes Social History Home: Single Level Current Living Status: Spouse Entry Into Home: Level Entry Prior Prior Level of Function SCALE: Activities may be completed with or without assistive devices. 1-Khzzvklltr-kivoiyg completes the activity by him/herself with no assistance from a helper. 5-Set-up or Clean-up Assistance-helper sets up or cleans up; patient completes activity. [place] assists only prior to or following the activity. 4-Supervision or Touching Assistance-helper provides verbal cues and/or touching/steadying and/or contact guard assistance as patient completes ac tivity. Assistance may be provided throughout the activity or intermittently. 3-Partial/Moderate Assistance-helper does LESS THAN HALF the effort. [place] lifts, holds or supports trunk or limbs, but provides less than half the effort. 2-Substantial/Maximal Assistance-helper does MORE THAN HALF the effort. [place] lifts or holds trunk or limbs and provides more than half the effort. 1-Xhqvujblb-uzbezs does ALL the effort. Patient does none of the effort to complete the activity. Or, the assistance of 2 or more helpers is required for the patient to complete the activity. If activity was not attempted, code reason: 7-Patient Refused. 9-Not Applicable-not attempted and the patient did not perform the activity before the current illness, exacerbation or injury. 10-Not Attempted due to Environmental Limitations-(lack of equipment, weather restraints, etc.). 88-Not Attempted due to Medical Conditions or Safety Concerns. Bed Mobility: 5 Transfers (B,C,W/C): 5 Gait: 5 Stairs: 9 Prior Devices Use: Walker Prior Device Use: or cane PT Evaluation-Current Subjective Patient is very tearful. Agrees to PT. Objective Patient Orientation: Normal For Age Attachments: IV ROM/Strength ROM Lower Extremities bilateral LE WFL Strength Lower Extremities 4-/5 grossly bilateral LE Integumentary/Posture Integumentary refer to nursing notes Bowel Incontinence: No Bladder Incontinence: No Posture WFL Neuromuscular (Tone, Coordination, Reflexes) Parkinson's tremor Sensory Vision: Wears Glasses Hearing: Impaired Sensation Right Lower Extremit: Impaired Sensation Left Lower Extremity: Impaired Transfers Roll Left to Right (QC): 5 Sit to Lying (QC): 5 Lying to Sitting/Side of Bed(Q: 5 Sit to Stand (QC): 4 Chair/Ekb-ck-Hxyvn Xfer(QC): 4 Toilet Transfer (QC): 4 CGA for safety Gait Does the Patient Walk?: Yes Mode of Locomotion: Walk Anticipated Mode of Locomotion: Walk Walk 10 feet (QC): 4 Walk 50 ft with 2 Turns(QC): 4 Walk 150 ft (QC): 4 Gait Assistive Device: FWW Comments/Gait Description functional gait sequence Balance Sitting Static: Normal Sitting Dynamic: Normal Standing Static: Normal Standing Dynamic: Normal Assessment/Needs 69 y.o. female, will benefit from skilled PT to address functional strength and mobility to improve current LOF to safely return to home with spouse at maximum LOF. Rehab Potential: Fair PT Assisted Goals Manager Mobility Goals PT Assisted Goals Time Frame: Apr 03, 2020 Roll Left & Right (QC): 6 Sit to Lying (QC): 6 Lying-Sitting on Side/Bed(QC): 6 Sit to Stand (QC): 6 Chair/Swx-va-Ttsql Xfer(QC): 6 Toilet Transfer (QC): 6 Does the Patient Walk: Yes Walk 10 feet (QC): 5 Walk 50ft with 2 Turns (QC): 5 Walk 150 ft (QC): 5 PT Plan Problem List Problem List: Activity Tolerance, Functional Strength, Safety, Balance, Gait, Transfer, Bed Mobility Treatment/Plan Treatment Plan: Continue Plan of Care Treatment Plan: Bed Mobility, Education, Functional Activity Jose, Functional Strength, Gait, Safety, Therapeutic Exercise, Transfers Treatment Duration: Apr 03, 2020 Frequency: 6 times per week Estimated Hrs Per Day: .25 hour per day Time/GCodes Time In: 1110 Time Out: 1127 Total Billed Treatment Time: 17 Total Billed Treatment 1 visit EVMod 17 min SARIAH VALLADARES PT Mar 23, 2020 11:58
--- NOTE | 2020-03-23 13:02 | NUR ---
IRF Evaluation Determination: Accepted Chart review complete and findings discussed with Dr. Gerber - patient accepted. According to Dr. Gerber she has spoken to patient and spouse in regards to rehab admission, both agreeable. Will meet with patient to further discuss program and answer any questions she may have. The ARU is capped at 8, with 8 patients on unit; however, upcoming discharges from unit are anticipated. Thank you for this referral. Addendum: 03/23/20 at 1538 by HALIE HERNANDEZ Anticipate admission, 03/24/20.
--- NOTE | 2020-03-23 13:44 | Occupational Therapy Eval ---
OT Evaluation-General/PLF Medical Diagnosis Admission Date Mar 23, 2020 at 01:45 Medical Diagnosis: UTI/head injury/kidney transplant Onset Date: Mar 23, 2020 Therapy Diagnosis Therapy Diagnosis: weakness, decreased ADLs/functional mobility Height/Weight Height (Feet): 5 Height (Inches): 1.00 Weight (Pounds): 127 Weight (Ounces): 1.0 Precautions Precautions/Isolations: Fall Prevention, Standard Precautions Referral Physician: Zabrina Referral Reason: Evaluation/Treatment Medical History Pertinent Medical History: Atrial Fib, HTN, Neuropathy, Parkinson's Additional Medical History cochlear implant Current History EMS due to fall at home and inability to care for self Social History Home: Single Level Current Living Status: Spouse Entry Into Home: Level Entry ADL-Prior Level of Function SCALE: Activities may be completed with or without assistive devices. 5-Ayimcaduhd-ailzwva completes the activity by him/herself with no assistance from a helper. 5-Set-up or Clean-up Assistance-helper sets up or cleans up; patient completes a ctivity. [place] assists only prior to or following the activity. 4-Supervision or Touching Assistance-helper provides verbal cues and/or touching/steadying and/or contact guard assistance as patient completes activity. Assistance may be provided throughout the activity or intermittently. 3-Partial/Moderate Assistance-helper does LESS THAN HALF the effort. [place] lifts, holds or supports trunk or limbs, but provides less than half the effort. 2-Substantial/Maximal Assistance-helper does MORE THAN HALF the effort. [place] lifts or holds trunk or limbs and provides more than half the effort. 1-Bdnmqpryo-zkqzwq does ALL the effort. Patient does none of the effort to complete the activity. Or, the assistance of 2 or more helpers is required for the patient to complete the activity. If activity was not attempted, code reason: 7-Patient Refused. 9-Not Applicable-not attempted and the patient did not perform the activity before the current illness, exacerbation or injury. 10-Not Attempted due to Environmental Limitations-(lack of equipment, weather restraints, etc.). 88-Not Attempted due to Medical Conditions or Safety Concerns. ADL PLOF Comments Pt indicates she lives at home with her , she was independent with bathing/dressing at [facility], she has meals provided through meals on wheels, and she has a house keeper. Pt is in the process of moving to a new house on Sunday, it is a level entry house with a tub/shower. Pt does not have a shower chair, but states she can get one if needed. Self Care: Independent Functional Cognition: Independent DME/Equipment: Tub/Shower DME/Equipment Comments walker/cane OT Current Status Subjective Pt laying in bed, agreeable to OT evaluation. Pt tearful during tx, stating she just wants to get home. Mental Status/Objective Patient Orientation: Person, Place, Time, Situation Attachments: IV Current Glasses/Contacts: Yes Hearing Aids: Yes Dentures/Partials: No Hand Dominance: Left Upper Extremity ROM WFL Upper Extremity Coordination WFL Upper Extremity Sensation pt denies tingling/numbness BUEs Upper Extremity Strength grossly 4/5 MMT ADL-Treatment Eating (QC): 6 (pt reports no problems feeding) Upper Body Dressing (QC): 5 (based on clinical judgement, pt would be able to don/doff lathe puller shirt.) On/Off Footwear (QC): 4 (Pt donned/doffed gripper socks, seated EOB) Toileting Hygiene (QC): 7 Other Treatments Pt laying in bed, agreeable to OT evaluation. OT educated pt on purpose and benefits of OT, she verbalized understanding. Pt then provided information about PLOF and home set up. Pt transferred supine to sit EOB with SBA. Pt able to don/doff gripper socks at EOB. Pt declined transferring to commode, or further OOB activity. Pt transferred supine, SBA. Pt indicates her main concern is when she is standing or up on her feet, she feels nervous. Post OT tx, pt laying in bed, call light in reach and all needs met. Education OT Patient Education: Correct positioning, Energy conservation, Modified ADL techniques, Progress toward Goal/Update tx plan, Purpose of tx/functional activities, Safety issues, Transfer techniques Teaching Recipient: Patient Teaching Methods: Discussion Response to Teaching: Verbalize Understanding OT Fpc Goals Fpc Goals Time Frame: Apr 02, 2020 Eating (QC): 6 Oral Hygiene (QC): 6 Toileting Hygiene (QC): 6 Shower/Bathe Self (QC): 6 Upper Body Dressing (QC): 6 Lower Body Dressing (QC): 6 On/Off Footwear (QC): 6 1=Demonstrate adherence to instructed precautions during ADL tasks. 2=Patient will verbalize/demonstrate understanding of assistive devices/modifications for ADL. 3=Patient will improve strength/tolerance for activity to enable patient to perform ADL's. OT Education/Plan Problem List/Assessment Assessment: Decreased Activ Tolerance, Decreased UE Strength, Impaired Funct Balance, Impaired I ADL's, Impaired Self-Care Skills Pt would benefit from skilled OT services at this time in order to increase BUE strength and functional endurance, and to increase independence with ADLS and functional mobility for safe return home. Discharge Recommendations Plan/Recommendations: Continue POC Therapy Discharge Recommendati: Home & Family Treatment Plan/Plan of Care Treatment,Training & Education: Yes Patient would benefit from OT for education, treatment and training to promote independence in ADL's, mobility, safety and/or upper extremity function for ADL's. Plan of Care: ADL Retraining, Functional Mobility, UE Funct Exercise/Act Treatment Duration: Apr 02, 2020 Frequency: 5 times per week Estimated Hrs Per Day: .25 hour per day Rehab Potential: Fair Time/GCodes Start Time: 13:10 Stop Time: 13:21 Total Time Billed (hr/min): 11 Billed Treatment Time 1, DOYLE NIELSEN OT Mar 23, 2020 13:44
[2020-03-23] MEDS: LACTOBACILLUS ACIDOPHILUS (PROBIOTIC) CAPSULE PO SCH ×2 (14:27→21:04)
[2020-03-23] MEDS: metroNIDAZOLE 250 MG (FLAGYL) TAB PO SCH ×2 (14:27→21:05)
[2020-03-23] MEDS ORDERED: DICY20TA10 PO (15:18)
[2020-03-23] MEDS ORDERED: FLUT9.9S NS (15:18)
[2020-03-23] MEDS ORDERED: BUPR100T15 PO (15:18)
[2020-03-23] MEDS ORDERED: MYCO360T3 PO (15:18)
[2020-03-23] MEDS ORDERED: PITA1TAB PO (15:18)
[2020-03-23] MEDS ORDERED: FOLI0.8T2 PO (15:18)
[2020-03-23] MEDS ORDERED: ARIP5TAB57 PO (15:18)
[2020-03-23] MEDS ORDERED: LANS15CA PO (15:18)
[2020-03-23] MEDS ORDERED: GBPN600T PO (15:18)
[2020-03-23] MEDS ORDERED: ALOS1TAB PO (15:18)
[2020-03-23] MEDS ORDERED: AMLO2.5T4 PO (15:18)
[2020-03-23] MEDS ORDERED: CYCL1DRO OD (15:21)
--- NOTE | 2020-03-23 15:29 | NUR ---
SPOKE WITH THE PTS AMRITA (THERE WAS A MED LIST ON HER CHART), WENT THRU THE EXT MED HISTORY AND CALLED [facility] TO COMPLETE THE MED REC POTASSIUM IS LISTED ON THE HOME MED LIST HOWEVER AMRITA SAYS PT IS NO LONGER TAKING THE FOLLOWING ARE FILL DATES FROM [facility]: 01-27-2020 RESTASIS #120/60DS 02-12-2020 BUPROPION 100MG #30/30DS 02-16-2020 LOTRONEX 1MG #180/90DS 02-18-2020 BACLOFEN #60 02-19-2020 DICYCLOMINE 20MG #60 02-19-2020 AMLODIPINE 2.5MG #30/30DS 02-20-2020 LIVALO 1MG #30/30DS 02-25-2020 AZOPT #1 03-06-2020 ABILIFY 5MG #30/30DS 03-18-2020 KLONOPIN 0.5MG #15/30DS 03-19-2020 GABAPENTIN 600MG #84/28DS ON 03-23-2020 [facility] FILLED MYFORTIC 360M #60/30DS AND PROGRAF 1MG #60/30DS THERE WERE STRENGTHS LISTED ON THE PT HOME MEDS LIST THAT WERE NOT CORRECT (BUPROPION, LOTRONEX, ABILIFY, DICYCLOMINE) HOWEVER WHAT IS NOW ON THE MED REC MATCHES WHAT THE PT IS TAKING AND WHAT THE PHARMACIES HAVE FILLED OTC MEDS: ASPIRIN 81MG FAMOTIDINE FLONASE IMODIUM NEPHRO-BETITO PROBIOTIC VITAMIN C CRANBERRY PREVACID
[2020-03-23] MEDS ORDERED: PATIENT MAY USE OWN MEDS, ALL MC SCH (18:30)
[2020-03-23] MEDS ORDERED: FLUTICASONE NASAL SPRAY (FLONASE) 16 GM BTL NS PRN (19:28)
[2020-03-23] MEDS ORDERED: LOPERAMIDE 2 MG (IMODIUM) TABLET PO PRN (19:30)
[2020-03-23] MEDS ORDERED: ZOLPIDEM 5 MG (AMBIEN) TAB ONE (20:58)
--- NOTE | 2020-03-23 20:59 | NUR ---
2044- PT STATES THAT SHE USUALLY TAKES AMBIEN FOR SLEEP. THIS MEDICATION WAS NOT LISTED ON THE MED. REC OR HER MEDICATION LIST SHE BROUGHT FROM HOME. PT STATES, "THEN I GUESS I WON'T BE SLEEPING TONIGHT. THIS RN USED THERAPEUTIC COMMUNICATION AND INFORMED PT THAT I WOULD NOTIFY THE DOCTOR ABOUT THE MEDICATION. 2055- DR. DRIVER NOTIFIED OF ABOVE- ORDER FOR AMBIEN 5 MG PO HS RECEIVED AT THIS TIME.
[2020-03-23] MEDS ORDERED: ALOSETRON HCL 1 MG PO SCH (21:00)
[2020-03-23] MEDS ORDERED: BRINZOLAMIDE OD SCH (21:00)
[2020-03-23] MEDS ORDERED: NON-FORMULARY MEDICATION 1 EA EA (Cranberry Fruit Concentrate (Cranberry) 450 MG) PO SCH (21:00)
[2020-03-23] MEDS ORDERED: ZOLPIDEM 5 MG (AMBIEN) TAB PO SCH (21:00)
[2020-03-23] MEDS: ARTIFICAL TEARS 0.4 ML UNIT DOSE (REFRESH PLUS) OD SCH (21:04)
[2020-03-23] MEDS: DICYCLOMINE 10 MG (BENTYL) CAP PO SCH (21:05)
[2020-03-23] MEDS: ASPIRIN E.C. 81 MG (ECOTRIN) TAB PO SCH (21:05)
[2020-03-23] MEDS: GABAPENTIN 600 MG (NEURONTIN) TAB PO SCH (21:05)
[2020-03-23] MEDS: BACLOFEN 10 MG (LIORESAL) TAB PO SCH (21:05)
[2020-03-23] MEDS: TACROLIMUS 1 MG (PROGRAF) CAP NON-FORMULARY PO SCH (21:06)
[2020-03-23] MEDS: MYCOPHENOLATE SODIUM 360 MG PO SCH (21:06)
[2020-03-23] MEDS ORDERED: cefTRIAXone 1,000 MG/SWFI 10 ML IV PUSH IV SCH ×2 (22:00)
[2020-03-24 04:15] VITALS: BP 156/74
[2020-03-24] MEDS: DICYCLOMINE 10 MG (BENTYL) CAP PO SCH (05:59)
--- NOTE | 2020-03-24 06:08 | Discharge Summary ---
Diagnosis/Chief Complaint Date of Admission Mar 23, 2020 at 01:45 Date of Discharge Discharge Date: Mar 24, 2020 Discharge Diagnosis Assessment: Fall UTI E coli Severe Parkinsons Plan: Antibiotics briefly to prevent C DIFF colitis Flagyl for prevention along with probiotic Discharge Summary Discharge Physical Examination Allergies: Coded Allergies: codeine (Unverified Allergy, Unknown, 02/12/17) morphine (Verified Allergy, Unknown, NAUSEA, 02/12/17) Vitals & I&Os Vital Signs Date Time Temp Pulse Resp B/P (MAP) Pulse Ox O2 Delivery O2 Flow Rate FiO2 03/24/20 08:00 96 Room Air 03/24/20 08:00 36.7 89 20 170/73 (105) General Appearance: Alert, Oriented X3, Cooperative Respiratory: Clear to Auscultation Cardiovascular: Regular Rate Psych/Mental Status: Mental Status NL Hospital Course Was the Problem List Reviewed?: Yes Hospital Course: Pt had a brief hospital course, she was admitted for UTI with a history of kidney transplant in addition to Parkinsons with severe and numerous falls. 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 I did update her yesterday. At this current time pt is stable for DC to inpatient rehab. Will follow up on the urine culture that shows E.coli, maintain on Flagyl and probiotics and work on preventing falls with a hx of Parkinsons disease. Labs (last 24 hrs) Laboratory Tests 03/23/20 00:15: White Blood Count 12.2H, Red Blood Count 4.67, Hemoglobin 13.7, Hematocrit 41, Mean Corpuscular Volume 87, Mean Corpuscular Hemoglobin 29, Mean Corpuscular Hemoglobin Concent 34, Red Cell Distribution Width 12.8, Platelet Count 195, Mean Platelet Volume 11.0, Immature Granulocyte % (Auto) 0, Neutrophils (%) (Auto) 84H, Lymphocytes (%) (Auto) 8L, Monocytes (%) (Auto) 7, Eosinophils (%) (Auto) 0, Basophils (%) (Auto) 0, Neutrophils # (Auto) 10.2H, Lymphocytes # (Auto) 1.0, Monocytes # (Auto) 0.9, Eosinophils # (Auto) 0.0, Basophils # (Auto) 0.0, Immature Granulocyte # (Auto) 0.1, Sodium Level 136, Potassium Level 3.9, Chloride Level 99, Carbon Dioxide Level 23, Anion Gap 14, Blood Urea Nitrogen 8, Creatinine 0.78, Estimat Glomerular Filtration Rate > 60, BUN/Creatinine Ratio 10, Glucose Level 115H, Calcium Level 9.1, Corrected Calcium 9.2, Total Bilirubin 1.2H, Aspartate Amino Transf (AST/SGOT) 21, Alanine Aminotransferase (ALT/SGPT) 12, Alkaline Phosphatase 61, C-Reactive Protein High Sensitivity 10.64H, Total Protein 7.1, Albumin 3.9 03/23/20 00:36: Urine Color YELLOW, Urine Clarity CLOUDY, Urine pH 6.0, Urine Specific [place] <=1.005, Urine Protein NEGATIVE, Urine Glucose (UA) NEGATIVE, Urine Ketones NEGATIVE, Urine Nitrite POSITIVEH, Urine Bilirubin NEGATIVE, Urine Urobilinogen 2.0, Urine Leukocyte Esterase TRACEH, Urine RBC (Auto) NEGATIVE, Urine RBC 0-2, Urine WBC 0-2, Urine Squamous Epithelial Cells RARE, Urine Crystals NONE, Urine Bacteria MODERATEH, Urine Casts NONE, Urine Mucus NEGATIVE, Urine Culture Indicated YES 03/23/20 01:12: Lactic Acid Level 0.99 03/23/20 07:06: White Blood Count 11.8H, Red Blood Count 4.30, Hemoglobin 12.8, Hematocrit 37, Mean Corpuscular Volume 87, Mean Corpuscular Hemoglobin 30, Mean Corpuscular Hemoglobin Concent 34, Red Cell Distribution Width 12.7, Platelet Count 187, Mean Platelet Volume 10.0, Immature Granulocyte % (Auto) 0, Neutrophils (%) (Auto) 84H, Lymphocytes (%) (Auto) 9L, Monocytes (%) (Auto) 7, Eosinophils (%) (Auto) 0, Basophils (%) (Auto) 0, Neutrophils # (Auto) 9.9H, Lymphocytes # (Auto) 1.0, Monocytes # (Auto) 0.8, Eosinophils # (Auto) 0.0, Basophils # (Auto) 0.0, Immature Granulocyte # (Auto) 0.1, Sodium Level 139, Potassium Level 3.5L, Chloride Level 104, Carbon Dioxide Level 24, Anion Gap 11, Blood Urea Nitrogen 7, Creatinine 0.67, Estimat Glomerular Filtration Rate > 60, BUN/Creatinine Ratio 10, Glucose Level 104, Calcium Level 8.6 03/24/20 06:02: White Blood Count 6.4, Red Blood Count 4.17, Hemoglobin 12.5, Hematocrit 36, Mean Corpuscular Volume 87, Mean Corpuscular Hemoglobin 30, Mean Corpuscular Hemoglobin Concent 35, Red Cell Distribution Width 12.7, Platelet Count 179, Mean Platelet Volume 9.9, Immature Granulocyte % (Auto) 1, Neutrophils (%) (Auto) 78H, Lymphocytes (%) (Auto) 13, Monocytes (%) (Auto) 8, Eosinophils (%) (Auto) 0, Basophils (%) (Auto) 0, Neutrophils # (Auto) 5.0, Lymphocytes # (Auto) 0.8L, Monocytes # (Auto) 0.5, Eosinophils # (Auto) 0.0, Basophils # (Auto) 0.0, Immature Granulocyte # (Auto) 0.0, Sodium Level 139, Potassium Level 3.4L, Chloride Level 105, Carbon Dioxide Level 20L, Anion Gap 14, Blood Urea Nitrogen 8, Creatinine 0.69, Estimat Glomerular Filtration Rate > 60, BUN/Creatinine Ratio 12, Glucose Level 98, Calcium Level 8.7, Corrected Calcium 9.1, Total Bilirubin 0.7, Aspartate Amino Transf (AST/SGOT) 11, Alanine Aminotransferase (ALT/SGPT) 9, Alkaline Phosphatase 49, Total Protein 5.9L, Albumin 3.5 Microbiology 03/23/20 Blood Culture - Preliminary, Resulted No growth 03/23/20 Urine Culture - Final, Complete Escherichia coli Pending Labs Microbiology Date/Time Source Procedure Growth Status 03/23/20 01:26 Peripheral Left Wrist Blood Culture - Preliminary No growth Resulted 03/23/20 01:12 Peripheral Lt Ac Blood Culture - Preliminary No growth Resulted 03/23/20 00:36 Urine Clean Catch Urine Culture - Final Escherichia coli Complete Laboratory Tests 03/23/20 00:15: White Blood Count 12.2, Red Blood Count 4.67, Hemoglobin 13.7, Hematocrit 41, Mean Corpuscular Volume 87, Mean Corpuscular Hemoglobin 29, Mean Corpuscular Hemoglobin Concent 34, Red Cell Distribution Width 12.8, Platelet Count 195, M faiza Platelet Volume 11.0, Immature Granulocyte % (Auto) 0, Neutrophils (%) (Auto) 84, Lymphocytes (%) (Auto) 8, Monocytes (%) (Auto) 7, Eosinophils (%) (Auto) 0, Basophils (%) (Auto) 0, Neutrophils # (Auto) 10.2, Lymphocytes # (Auto) 1.0, Monocytes # (Auto) 0.9, Eosinophils # (Auto) 0.0, Basophils # (Auto) 0.0, Immature Granulocyte # (Auto) 0.1, Sodium Level 136, Potassium Level 3.9, Chloride Level 99, Carbon Dioxide Level 23, Anion Gap 14, Blood Urea Nitrogen 8, Creatinine 0.78, Estimat Glomerular Filtration Rate > 60, BUN/Creatinine Ratio 10, Glucose Level 115, Calcium Level 9.1, Corrected Calcium 9.2, Total Bilirubin 1.2, Aspartate Amino Transf (AST/SGOT) 21, Alanine Aminotransferase (ALT/SGPT) 12, Alkaline Phosphatase 61, C-Reactive Protein High Sensitivity 10.64, Total Protein 7.1, Albumin 3.9 03/23/20 00:36: Urine Color YELLOW, Urine Clarity CLOUDY, Urine pH 6.0, Urine Specific [place] <=1.005, Urine Protein NEGATIVE, Urine Glucose (UA) NEGATIVE, Urine Ketones NEGATIVE, Urine Nitrite POSITIVE, Urine Bilirubin NEGATIVE, Urine Urobilinogen 2.0, Urine Leukocyte Esterase TRACE, Urine RBC (Auto) NEGATIVE, Urine RBC 0-2, Urine WBC 0-2, Urine Squamous Epithelial Cells RARE, Urine Crystals NONE, Urine Bacteria MODERATE, Urine Casts NONE, Urine Mucus NEGATIVE, Urine Culture Indicated YES 03/23/20 01:12: Lactic Acid Level 0.99 03/23/20 07:06: White Blood Count 11.8, Red Blood Count 4.30, Hemoglobin 12.8, Hematocrit 37, Mean Corpuscular Volume 87, Mean Corpuscular Hemoglobin 30, Mean Corpuscular Hemoglobin Concent 34, Red Cell Distribution Width 12.7, Platelet Count 187, Mean Platelet Volume 10.0, Immature Granulocyte % (Auto) 0, Neutrophils (%) (Auto) 84, Lymphocytes (%) (Auto) 9, Monocytes (%) (Auto) 7, Eosinophils (%) (Auto) 0, Basophils (%) (Auto) 0, Neutrophils # (Auto) 9.9, Lymphocytes # (Auto) 1.0, Monocytes # (Auto) 0.8, Eosinophils # (Auto) 0.0, Basophils # (Auto) 0.0, Immature Granulocyte # (Auto) 0.1, Sodium Level 139, Potassium Level 3.5, Chlori de Level 104, Carbon Dioxide Level 24, Anion Gap 11, Blood Urea Nitrogen 7, Creatinine 0.67, Estimat Glomerular Filtration Rate > 60, BUN/Creatinine Ratio 10, Glucose Level 104, Calcium Level 8.6 03/24/20 06:02: White Blood Count 6.4, Red Blood Count 4.17, Hemoglobin 12.5, Hematocrit 36, Mean Corpuscular Volume 87, Mean Corpuscular Hemoglobin 30, Mean Corpuscular Hemoglobin Concent 35, Red Cell Distribution Width 12.7, Platelet Count 179, Mean Platelet Volume 9.9, Immature Granulocyte % (Auto) 1, Neutrophils (%) (Auto) 78, Lymphocytes (%) (Auto) 13, Monocytes (%) (Auto) 8, Eosinophils (%) (Auto) 0, Basophils (%) (Auto) 0, Neutrophils # (Auto) 5.0, Lymphocytes # (Auto) 0.8, Monocytes # (Auto) 0.5, Eosinophils # (Auto) 0.0, Basophils # (Auto) 0.0, Immature Granulocyte # (Auto) 0.0, Sodium Level 139, Potassium Level 3.4, Chloride Level 105, Carbon Dioxide Level 20, Anion Gap 14, Blood Urea Nitrogen 8, Creatinine 0.69, Estimat Glomerular Filtration Rate > 60, BUN/Creatinine Ratio 12, Glucose Level 98, Calcium Level 8.7, Corrected Calcium 9.1, Total Bilirubin 0.7, Aspartate Amino Transf (AST/SGOT) 11, Alanine Aminotransferase (ALT/SGPT) 9, Alkaline Phosphatase 49, Total Protein 5.9, Albumin 3.5 Discharge Home Medications: Active Scripts Active Reported Restasis (Cyclosporine) 1 Each Droperette 1 Each OD BID Livalo (Pitavastatin Calcium) 1 Mg Tablet 1 Mg PO DAILY Prevacid 24Hr (Lansoprazole) 15 Mg Capsule.dr 15 Mg PO DAILY Dicyclomine HCl 20 Mg Tablet 10 Mg PO QID TAKES 1/2 OF A 20MG TAB Bupropion HCl 100 Mg Tablet 100 Mg PO DAILY Gabapentin 600 Mg Tablet 600 Mg PO TID Amlodipine Besylate 2.5 Mg Tablet 2.5 Mg PO DAILY Aripiprazole 5 Mg Tablet 5 Mg PO HS Alosetron HCl 1 Mg Tablet 1 Mg PO BID Nephro-Rodrick Tablet (Folic Acid/Vitamin B Comp W-C) 0.8 Mg Tablet 0.8 Mg PO DAILY Mycophenolic Acid (Mycophenolate Sodium) 360 Mg Tablet.dr 360 Mg PO BID Flonase Allergy Relief (Fluticasone Propionate) 9.9 Ml Laurel.susp 2 Laurel NS DAILY PRN Baclofen 10 Mg Tablet 5 Mg PO BID TAKES 1/2 OF A 10MG TAB Clonazepam 0.5 Mg Tablet 0.25 Mg PO DAILY TAKES 1/2 OF A 0.5MG TAB Acid [employer] (FAMOTIDINE) (Famotidine) 20 Mg Tablet 20 Mg PO DAILY Azopt (Brinzolamide) 10 Ml Btl 1 Drop OD BID Cranberry (Cranberry Fruit Concentrate) 450 Mg Capsule 450 Mg PO BID Vitamin C (Ascorbate Calcium) 500 Mg Tablet 500 Mg PO DAILY Adult Low Dose Aspirin EC (Aspirin) 81 Mg Tablet.dr 81 Mg PO BID Prograf (Tacrolimus) 1 Mg Capsule 1 Mg PO BID Probiotic (L.acidoph & Paracasei,B.lactis) 1 Each Capsule 1 Cap PO DAILY Imodium Multi-Symptom Rel Cplt (Loperamide HCl/Simethicone) 1 Each Tablet 1 Tab PO DAILY PRN Instructions to patient/family Please see electronic discharge instructions given to patient. Diagnosis/Problems Diagnosis/Problems (1) Multiple falls Status: Acute (2) Urinary tract infection Status: Acute Qualifiers: Qualified Codes: N30.00 - Acute cystitis without hematuria (3) Head injury Status: Acute Qualifiers: Qualified Codes: S09.90XA - Unspecified injury of head, initial encounter (4) Parkinsons disease Status: Acute (5) Kidney transplant recipient Status: Acute Clinical Quality Measures DVT/VTE Risk/Contraindication: Risk Factor Score Per Nursin RFS Level Per Nursing on Admit: 4+=Very High JOSEPH DRIVER DO Mar 24, 2020 06:08
[2020-03-24 06:10] LABS: BASOPHILS % (AUTO) 0 % (0-10); EOSINOPHILS % (AUTO) 0 % (0-10); HEMATOCRIT 36 % (35-52); HEMOGLOBIN 12.5 g/dL (11.5-16.0); LYMPHOCYTES # (AUTO) 0.8 10^3/uL (1.0-4.0); LYMPHOCYTES % (AUTO) 13 % (12-44); MEAN CORPUSCULAR HEMOGLOBIN 30 pg (25-34); MEAN CORPUSCULAR HGB CONC 35 g/dL (32-36); MEAN CORPUSCULAR VOLUME 87 fL (80-99); MEAN PLATELET VOLUME 9.9 fL (9.0-12.2); MONOCYTES # (AUTO) 0.5 10^3/uL (0.0-1.0); MONOCYTES % (AUTO) 8 % (0-12); NEUTROPHILS % (AUTO) 78 % (42-75); PLATELET COUNT 179 10^3/uL (130-400); WHITE BLOOD COUNT 6.4 10^3/uL (4.3-11.0)
[2020-03-24 06:29] LABS: ALBUMIN 3.5 GM/DL (3.2-4.5); CHLORIDE 105 MMOL/L (98-107); POTASSIUM 3.4 MMOL/L (3.6-5.0); SODIUM 139 MMOL/L (135-145)
[2020-03-24 06:30] LABS: CALCIUM 8.7 MG/DL (8.5-10.1)
[2020-03-24 06:31] LABS: GLUCOSE 98 MG/DL (70-105)
[2020-03-24 06:32] LABS: TOTAL PROTEIN 5.9 GM/DL (6.4-8.2)
[2020-03-24 06:33] LABS: BILIRUBIN,TOTAL 0.7 MG/DL (0.1-1.0); CARBON DIOXIDE 20 MMOL/L (21-32)
[2020-03-24 06:35] LABS: ALKALINE PHOSPHATASE 49 U/L (40-136); CREATININE SERUM 0.69 MG/DL (0.60-1.30); GFR ESTIMATED > 60
[2020-03-24 06:36] LABS: BUN/CREATININE RATIO 12
[2020-03-24 06:38] LABS: ALANINE AMINOTRANSFERASE 9 U/L (0-55)
[2020-03-24] MEDS ORDERED: LACTOBACILLUS ACIDOPHILUS (PROBIOTIC) CAPSULE PO SCH (07:00)
[2020-03-24] MEDS ORDERED: ASCORBIC ACID (VIT C) 500 MG TABLET PO SCH (07:00)
[2020-03-24 08:00] VITALS: BP 170/73
[2020-03-24] MEDS: BACLOFEN 10 MG (LIORESAL) TAB PO SCH (08:33)
[2020-03-24] MEDS: LACTOBACILLUS ACIDOPHILUS (PROBIOTIC) CAPSULE PO SCH (08:33)
[2020-03-24] MEDS: metroNIDAZOLE 250 MG (FLAGYL) TAB PO SCH (08:33)
[2020-03-24] MEDS: ENOXAPARIN 40 MG/0.4 ML (LOVENOX) SYR SC SCH (08:33)
[2020-03-24] MEDS: GABAPENTIN 600 MG (NEURONTIN) TAB PO SCH (08:33)
[2020-03-24] MEDS: ASPIRIN E.C. 81 MG (ECOTRIN) TAB PO SCH (08:33)
[2020-03-24] MEDS: TACROLIMUS 1 MG (PROGRAF) CAP NON-FORMULARY PO SCH (08:34)
[2020-03-24] MEDS: MYCOPHENOLATE SODIUM 360 MG PO SCH (08:34)
[2020-03-24] MEDS: ARTIFICAL TEARS 0.4 ML UNIT DOSE (REFRESH PLUS) OD SCH (08:43)
[2020-03-24] MEDS ORDERED: VITAMIN B COMP W C PO SCH (09:00)
[2020-03-24] MEDS ORDERED: [UNRECOGNIZED DRUG - OTHER] PO SCH (09:00)
[2020-03-24] MEDS ORDERED: clonazePAM 0.5 MG (KlonoPIN) TAB PO SCH (09:00)
[2020-03-24] MEDS ORDERED: FOLIC ACID PO SCH (09:00)
[2020-03-24] MEDS ORDERED: FAMOTIDINE 20 MG (PEPCID) TABLET PO SCH (09:00)
[2020-03-24] MEDS ORDERED: buPROPion 100 MG (WELLBUTRIN) TAB PO SCH (09:00)
[2020-03-24] MEDS ORDERED: amLODIPine 2.5MG (NORVASC) TAB PO SCH (09:00)
[2020-03-24] MEDS ORDERED: PANTOPRAZOLE 20 MG TABLET (PROTONIX) PO SCH (09:00)
--- NOTE | 2020-03-24 09:51 | NUR ---
CALLED REPORT TO [facility]. THERAPY IS READY TO TAKE THE PATIENT.
--- NOTE | 2020-03-24 12:00 | Progress Note ---
LEMUEL FUNEZ MED STUDENT 03/24/20 1159: Progress Note Zehra Escalante is a 69 y/o female with Hx of C. Diff and kidney transplant presented to ER for weakness and s/p fall onset 3 days ago. Patient lost her balance 3 days ago (03/21/20) while in the bathroom, sustaining bruising/swelling over her forehead as well as a cut lip. Patient remained at home until she went to the bathroom the next day and was unable to get up off the toilet, even with assistance from at which point he called EMS. She was brought to the [facility] ER where she was evaluated for possible UTI and fall. Patient treated with Rocephin. Patient also started on Flagyl secondary to previous C. Diff colitis. CT head and neck ordered, both negative. Patient will be transferred to PT pending urine culture, and f/u tomorrow. Patient to maintain current abx. CHAYA DRIVER DO 03/24/20 2147: Supervisory-Addendum Brief Verification & Attestation Participated in pt care: history, MDM, physical Personally performed: exam, history, MDM, supervision of care Care discussed with: Medical Student Procedures: n/a Results interpretation: Verified all documentation Verification and Attestation of Medical Student E/M Service A medical student performed and documented this service in my presence. I reviewed and verified all information documented by the medical student and made modifications to such information, when appropriate. I personally performed the physical exam and medical decision making. Chaya Driver Mar 24, 2020,21:47 LEMUEL FUNEZ MED STUDENT Mar 24, 2020 11:59 CHAYA DRIVER DO Mar 24, 2020 21:47
== END 2020-03-24 10:00 | DRG 690 ==
LOC: EDUNIT# 00:12 → ER 00:13 → 4TH 01:45
PROVIDERS: ADMIT Internal Medicine; ATTEND Internal Medicine
DX: N39.0 Urinary tract infection, site not specified (principal); Z94.0 Kidney transplant status; B96.20 Unspecified Escherichia coli [E. coli] as the cause of diseases classified elsewhere; G20 Parkinson's disease; Z91.81 History of falling; I11.0 Hypertensive heart disease with heart failure; I50.9 Heart failure, unspecified; S00.83XD Contusion of other part of head, subsequent encounter; S01.511D Laceration without foreign body of lip, subsequent encounter; F41.9 Anxiety disorder, unspecified; F32.9 Major depressive disorder, single episode, unspecified; M19.91 Primary osteoarthritis, unspecified site; Z95.2 Presence of prosthetic heart valve; Z87.01 Personal history of pneumonia (recurrent); Z97.0 Presence of artificial eye; Z96.21 Cochlear implant status; Z97.4 Presence of external hearing-aid; Z85.528 Personal history of other malignant neoplasm of kidney; Z90.710 Acquired absence of both cervix and uterus; Z90.722 Acquired absence of ovaries, bilateral; Z90.5 Acquired absence of kidney; Z90.49 Acquired absence of other specified parts of digestive tract; W19.XXXD Unspecified fall, subsequent encounter; Z90.89 Acquired absence of other organs
CPT/HCPCS: 36415; 70450; 72125; 80048; 80053; 81000; 83605; 85025; 86141; 87040; 87077; 87088; 87186

== ENCOUNTER 2020-04-07 09:50 | Inpatient (IN) | payer MEDICARE, OTHER ==
[~2020-04-07] VITALS: Ht 152.4 cm; Wt 54.9 kg
[~2020-04-07 09:50] MED LIST changes: +ALOS1TAB PO; -AMIO200T4 PO; +AMIO200T6 PO; +AMLO2.5T4 PO; +ARIP5TAB57 PO; +BUPR100T15 PO; +CYCL1DRO OD; +FLUT9.9S NS; +FOLI0.8T2 PO; +LANS15CA PO; +MYCOPHENOLATE SODIUM PO; +PITA1TAB PO; +ZOLP5TAB7 PO
[2020-04-07] MEDS ORDERED: LACTATED RINGERS 1,000 ML IV ONE (10:08)
[2020-04-07] MEDS ORDERED: NS IV 500 ML 500 ML IV ONE (10:08)
[2020-04-07] MEDS ORDERED: ONDANSETRON 4 MG/2 ML (SDV) Z0FRAN IV PRN ×2 (10:15→15:15)
[2020-04-07] MEDS ORDERED: VANCOMYCIN INJECTION 1,000 MG in NS (IVPB) 250 ML IV ONE ×2 (10:15→13:00)
[2020-04-07] MEDS ORDERED: CEFEPIME INJECTION 1,000 MG in WATER (STERILE) FOR INJECTION 10 ML IV ONE (10:15)
[2020-04-07 10:37] LABS: CLARITY,URINE CLEAR; COLOR,URINE YELLOW; GLUCOSE, URINE (UA) NEGATIVE (NEGATIVE); KETONES,URINE 3+ (NEGATIVE); LEUKOCYTE ESTERASE ,URINE NEGATIVE (NEGATIVE); NITRITE,URINE NEGATIVE (NEGATIVE); PROTEIN,URINE TRACE (NEGATIVE)
[2020-04-07 10:50] LABS: RBC,URINE 0-2 /HPF; WBC,URINE 0-2 /HPF
[2020-04-07 10:51] LABS: BILIRUBIN,URINE NEGATIVE (NEGATIVE)
[2020-04-07 10:52] LABS: BACTERIA,URINE TRACE /HPF; SQUAMOUS EPITHELIAL CELL,UR 0-2 /HPF
--- NOTE | 2020-04-07 10:56 | Diagnostic Imaging Report ---
INDICATION: Dehydration. Sepsis. Fall. Comparison with 08/28/2016. FINDINGS: There is a consolidated alveolar infiltrate in the right lower lobe. Left lung is well-aerated and clear. Heart is not enlarged. Median sternotomy changes. Pulmonary vasculature is normal. No pneumothorax or pleural effusion. IMPRESSION: Findings consistent with right lower lobe pneumonia developing since previous exam. Dictated by: Dictated on workstation # [id number]
[2020-04-07 11:11] LABS: BASOPHILS % (AUTO) 0 % (0-10); EOSINOPHILS % (AUTO) 0 % (0-10); HEMATOCRIT 37 % (35-52); HEMOGLOBIN 12.8 g/dL (11.5-16.0); LYMPHOCYTES # (AUTO) 0.5 10^3/uL (1.0-4.0); LYMPHOCYTES % (AUTO) 5 % (12-44); MEAN CORPUSCULAR HEMOGLOBIN 29 pg (25-34); MEAN CORPUSCULAR HGB CONC 35 g/dL (32-36); MEAN CORPUSCULAR VOLUME 85 fL (80-99); MEAN PLATELET VOLUME 10.5 fL (9.0-12.2); MONOCYTES # (AUTO) 0.6 10^3/uL (0.0-1.0); MONOCYTES % (AUTO) 6 % (0-12); NEUTROPHILS # (AUTO) 9.4 10^3/uL (1.8-7.8); NEUTROPHILS % (AUTO) 89 % (42-75); PLATELET COUNT 226 10^3/uL (130-400); WHITE BLOOD COUNT 10.6 10^3/uL (4.3-11.0)
[2020-04-07 11:21] LABS: ALBUMIN 3.7 GM/DL (3.2-4.5); CHLORIDE 96 MMOL/L (98-107); POTASSIUM 3.7 MMOL/L (3.6-5.0); SODIUM 134 MMOL/L (135-145)
[2020-04-07 11:22] LABS: CALCIUM 8.9 MG/DL (8.5-10.1)
[2020-04-07 11:24] LABS: GLUCOSE 130 MG/DL (70-105); TOTAL PROTEIN 7.1 GM/DL (6.4-8.2)
[2020-04-07 11:25] LABS: BILIRUBIN,TOTAL 1.1 MG/DL (0.1-1.0); CARBON DIOXIDE 22 MMOL/L (21-32)
[2020-04-07 11:27] LABS: ALKALINE PHOSPHATASE 57 U/L (40-136); CREATININE SERUM 0.74 MG/DL (0.60-1.30); GFR ESTIMATED > 60; INR 1.2 (0.8-1.4); PROTHROMBIN TIME PATIENT 15.4 SEC (12.2-14.7)
[2020-04-07 11:28] LABS: BUN/CREATININE RATIO 18
[2020-04-07 11:30] LABS: ALANINE AMINOTRANSFERASE 18 U/L (0-55)
[2020-04-07 11:33] LABS: BAND NEUTROPHILS 5 %; LYMPHOCYTES % (MANUAL) 4 %; MONOCYTES % (MANUAL) 4 %; NEUTROPHILS % (MANUAL) 87 %
[2020-04-07 11:34] LABS: RBC MORPH NORMAL
--- NOTE | 2020-04-07 12:22 | Diagnostic Imaging Report ---
CLINICAL INDICATION: Patient slipped out of chair today status post fall. EXAM: Axial Head CT without IV contrast with coronal and sagittal reformatted images. Axial Maxillofacial CT scan without IV contrast with sagittal and coronal reformations. Axial CT scan of the cervical spine with sagittal and coronal reformations. Auto Exposure Controls were utilized during the CT exam to meet ALARA standards for radiation dose reduction. COMPARISON: CT scan of the head and cervical spine without contrast dated 03/23/2020. FINDINGS: Head CT and maxillofacial: Again seen cochlear implant overlying the right side of the head with associated streak artifact obscuring portions of the brain. Also hearing aid is seen overlying the left side of the head with some streak artifact obscuring portions of the brain. Skull streak artifact obscures portions of the brainstem, posterior fossa, and portions of the brain near the skull. There is no evidence of acute cerebral infarct, intracranial hemorrhage, or gross mass effect. Stable brain parenchymal volume loss is seen. Stable focal and patchy areas of low-attenuation white matter changes involving both cerebral hemispheres, likely representing chronic small vessel ischemic disease. There is normal patterson-white matter distinction. There is no significant midline shift or herniation. There is no evidence of hydrocephalus. The basal cisterns are unremarkable. There is interval slight decreased size of the small area of extracranial soft tissue swelling involving the right frontal region. There is no skull fracture. The maxillofacial bony structures and mandible shows no acute fracture. Paranasal sinuses are clear. There is mild consolidation involving the left mastoid air cells and [id number] amount of consolidation involving the right mastoid air cells. Wall up right mastoidectomy changes are seen with associated right cochlear implant. Otherwise, the skull, extracranial soft tissue, and orbits are unremarkable. The paranasal sinuses are unremarkable. Cervical spine: There is no acute cervical spine fracture. There are stable grade 1 anterolisthesis C4 on C5 and C5 on C6 with no pars defect and likely degenerative. There are stable cervical spine vertebral body spurs and facet arthropathy. Stable [id number] loss of disc space height at the C6-C7 level with diffuse disc bulge. The neck soft tissue structures are stable with no significant abnormality. IMPRESSION: 1: There is no evidence of acute intracranial process. There is no skull or maxillofacial fracture. 2: Stable cervical spine degenerative disease with no acute fracture. Dictated by: Dictated on workstation # [id number]
--- NOTE | 2020-04-07 12:31 | NUR ---
SPOKE WITH ABOUT BRINGING BATTERIES FOR HER PROCESSOR. HE IS GOING TO BRING THEM SOON
--- NOTE | 2020-04-07 12:46 | ED Syncope ---
General Chief Complaint: General Problems/Pain Stated Complaint: DECREASED MOBILITY Nursing Triage Note: TO ED PER EMS FROM HOME. PER PATIENT WAS DSCHARGED ON SUNDAY WAS IN FOR UTI. WAS SEEN AT URGENT CARE ON SUNDAY WAS TOLD SHE WAS DEHYDRATION NO FLUIDS GIVEN. OLD BRUISNG TO FACE NOTED. PATIENT SLIPPED OUT OF CHAIR TODAY. Source of Information: Patient Exam Limitations: No Limitations History of Present Illness Date Seen by Provider: Apr 07, 2020 Time Seen by Provider: 10:00 Initial Comments The patient presents to ER by EMS with chief complaint of fall and not on blood thinners no history of diabetes and normal blood sugar per EMS. No interesting findings on EKG per EMS. Patient denies pain anywhere. She denies shortness of breath cough fever chills or dysuria. She got out of the hospital 6 days ago for rehabilitation related to a inpatient admission secondary to UTI. Patient does have Parkinson's disease. She comes from home. She has a history of kidney transplant and while she has a fistula on the right side she's never had to be on dialysis. Primary care by at [facility]. Allergies and Home Medications Allergies Coded Allergies: codeine (Unverified Allergy, Unknown, 02/12/17) morphine (Verified Allergy, Unknown, NAUSEA, 02/12/17) Home Medications Alosetron HCl 1 Mg Tablet, 1 MG PO BID, (Reported) Amlodipine Besylate 2.5 Mg Tablet, 2.5 MG PO DAILY, (Reported) Aripiprazole 5 Mg Tablet, 5 MG PO HS, (Reported) Ascorbate Calcium 500 Mg Tablet, 500 MG PO DAILY, (Reported) Aspirin 81 Mg Tablet.dr, 81 MG PO BID, (Reported) Baclofen 10 Mg Tablet, 5 MG PO BID, (Reported) TAKES 1/2 OF A 10MG TAB Brinzolamide 10 Ml Btl, 1 DROP OD BID, (Reported) Bupropion HCl 100 Mg Tablet, 100 MG PO DAILY, (Reported) Clonazepam 0.5 Mg Tablet, 0.25 MG PO DAILY, (Reported) TAKES 1/2 OF A 0.5MG TAB Cranberry Fruit Concentrate 450 Mg Capsule, 450 MG PO BID, (Reported) Cyclosporine 1 Each Droperette, 1 EACH OD BID, (Reported) Dicyclomine HCl 20 Mg Tablet, 10 MG PO QID, (Reported) TAKES 1/2 OF A 20MG TAB Famotidine 20 Mg Tablet, 20 MG PO DAILY, (Reported) Fluticasone Propionate 9.9 Ml [place].susp, 2 SPRAY NS DAILY PRN for CONGESTION, (Reported) Folic Acid/Vitamin B Comp W-C 0.8 Mg Tablet, 0.8 MG PO DAILY, (Reported) Gabapentin 600 Mg Tablet, 600 MG PO TID, (Reported) L.acidoph & Paracasei,B.lactis 1 Each Capsule, 1 CAP PO DAILY, (Reported) Lansoprazole 15 Mg Capsule.dr, 15 MG PO DAILY, (Reported) Loperamide HCl/Simethicone 1 Each Tablet, 1 TAB PO DAILY PRN for DIARRHEA, (Reported) Mycophenolate Sodium 360 Mg Tablet.dr, 360 MG PO BID, (Reported) Pitavastatin Calcium 1 Mg Tablet, 1 MG PO DAILY, (Reported) Tacrolimus 1 Mg Capsule, 1 MG PO BID, (Reported) Zolpidem Tartrate 5 Mg Tablet, 5 MG PO HS Prescribed by: JOSEPH DRIVER on 03/31/202127 [(NF) (Mycophenolate Sodium (Mycophenolic Acid))] 360 EACH, 360 MG PO BID Prescribed by: JOSEPH DRIVER on 03/31/202126 Patient Home Medication List Home Medication List Reviewed: Yes Review of Systems Constitutional: No chills, No fever; malaise, weakness EENTM: No ear discharge, No hearing loss, No ear pain Respiratory: No cough, No dyspnea on exertion, No phlegm, No short of breath Cardiovascular: No chest pain, No Hx of Intervention, No palpitations Gastrointestinal: No abdominal pain, No constipation, No diarrhea; nausea; No vomiting (dry heaves only) Genitourinary: No discharge, No dysuria Musculoskeletal: No back pain, No joint pain All Other Systems Reviewed Negative Unless Noted: Yes Past Otjoklo-Orrhtf-Exfqhm Hx Patient Social History Alcohol Use: Denies Use Recreational Drug Use: No Smoking Status: Never a Smoker 2nd Hand Smoke Exposure: No Recent Foreign Travel: No Contact w/Someone Who Travel: No Recent Infectious Disease Expo: No Recent Hopitalizations: No (DECEMBER 2016-) Immunizations Up To Date Tetanus Booster (TDap): Unknown PED Vaccines UTD: No Date of Pneumonia Vaccine: Jun 18, 2014 Date of Influenza Vaccine: Mar 24, 2016 Seasonal Allergies Seasonal Allergies: Yes Past Medical History Surgeries: Yes (COCHLEAR IMPLANT, CARDIAC ABLATION, AORTIC VALVE, KIDNEY TRANSPLANT) Appendectomy, Cardiac, Hysterectomy, Nephrectomy, Oophorectomy, Orthopedic, Renal, Tonsillectomy, Valve Replacement Respiratory: Yes Pneumonia Currently Using CPAP: No Currently Using BIPAP: No Cardiac: Yes ( CHF) Atrial Fibrillation, Hypertension, Valvular Heart Disease Neurological: Yes Neuropathy, Parkinson's Disease Reproductive Disorders: No Sexually Transmitted Disease: No HIV/AIDS: No Genitourinary: Yes (kidney transplant) Renal Failure Gastrointestinal: Yes (HX C-DIFF) Chronic Diarrhea Musculoskeletal: Yes Degenerate Disk Disease, Arthritis Endocrine: No HEENT: Yes (left artificial eye, cochlear implant) Cataract Hearing Impairment: Hard of Hearing, Hearing Aide Left Cancer: Yes Kidney Psychosocial: Yes Anxiety, Depression Integumentary: No Blood Disorders: No Adverse Reaction/Blood Tranf: No (HAS HAD BLOOD WITH NO REACTION) Family Medical History Patient reports no known family medical history. No Pertinent Family Hx Physical Exam Vital Signs Vital Signs - First Documented 04/07/20 09:53 Temp 38.0 Pulse 118 Resp 18 B/P (MAP) 129/76 (93) Pulse Ox 94 O2 Delivery Room Air Capillary Refill : Less Than 3 Seconds Height, Weight, BMI Height: 5'1.00" Weight: 127lbs. 1.0oz. 57.831461hh; 19.00 BMI Method:Stated General Appearance: Mild Distress, Other (chronic illness) HEENT: PERRL/EOMI, Pharynx Normal; No Moist Mucous Membranes Neck: Full Range of Motion, Normal Inspection Cardiovascular: Regular Rate, Rhythm, No Edema, Normal Peripheral Pulses Respiratory: Lungs Clear, Normal Breath Sounds Gastrointestinal: Normal Bowel Sounds, No Organomegaly Neurologic/Psychiatric: Alert, Oriented x3, No Motor/Sensory Deficits Cranial Nerves: Normal Speech, PERRL, Hearing Deficit (L), Hearing Deficit (R) Motor/Sensory: No Motor Deficit, No Sensory Deficit Skin: Normal Color, Warm/Dry Focused Exam Sepsis Stage: Sepsis Possible Source: Pulmonary Lactate Level 04/07/20 10:52: Lactic Acid Level 1.13 Time of Focused Exam: 12:47 Respiratory: Lungs Clear, Normal Breath Sounds, No Accessory Muscle Use, Respiratory Distress Cardiovascular: Regular Rate, Rhythm, No Edema, Normal Peripheral Pulses Capillary Refill: Less Than 3 Seconds Peripheral Pulses: 2+ Radial Pulses (R), 2+ Radial Pulses (L) Skin: normal color, warm/dry Lactic Acid Level Laboratory Tests Test 04/07/20 10:52 Lactic Acid Level 1.13 MMOL/L (0.50-2.00) Within 3hrs of presentation: Admin fluids, Blood cultures prior to ABX's, Focus exam, Lactate level Progress/Results/Core Measures Results/Orders Lab Results Laboratory Tests Test 04/07/20 10:27 04/07/20 10:52 Range/Units Urine Color YELLOW Urine Clarity CLEAR Urine pH 6.0 5-9 Urine Specific [place] 1.020 1.016-1.022 Urine Protein TRACE H NEGATIVE Urine Glucose (UA) NEGATIVE NEGATIVE Urine Ketones 3+ H NEGATIVE Urine Nitrite NEGATIVE NEGATIVE Urine Bilirubin NEGATIVE NEGATIVE Urine Urobilinogen 0.2 < = 1.0 MG/DL Urine Leukocyte Esterase NEGATIVE NEGATIVE Urine RBC (Auto) TRACE-I NEGATIVE Urine RBC 0-2 /HPF Urine WBC 0-2 /HPF Urine Squamous Epithelial Cells 0-2 /HPF Urine Crystals NONE /LPF Urine Bacteria TRACE /HPF Urine Casts NONE /LPF Urine Mucus NEGATIVE /LPF Urine Culture Indicated CULTURE PENDING Coronavirus 2019 ([facility]) Negative Negative White Blood Count 10.6 4.3-11.0 10^3/uL Red Blood Count 4.35 3.80-5.11 10^6/uL Hemoglobin 12.8 11.5-16.0 g/dL Hematocrit 37 35-52 % Mean Corpuscular Volume 85 80-99 fL Mean Corpuscular Hemoglobin 29 25-34 pg Mean Corpuscular Hemoglobin Concent 35 32-36 g/dL Red Cell Distribution Width 12.7 10.0-14.5 % Platelet Count 226 130-400 10^3/uL Mean Platelet Volume 10.5 9.0-12.2 fL Immature Granulocyte % (Auto) 0 % Neutrophils (%) (Auto) 89 H 42-75 % Lymphocytes (%) (Auto) 5 L 12-44 % Monocytes (%) (Auto) 6 0-12 % Eosinophils (%) (Auto) 0 0-10 % Basophils (%) (Auto) 0 0-10 % Neutrophils # (Auto) 9.4 H 1.8-7.8 10^3/uL Lymphocytes # (Auto) 0.5 L 1.0-4.0 10^3/uL Monocytes # (Auto) 0.6 0.0-1.0 10^3/uL Eosinophils # (Auto) 0.0 0.0-0.3 10^3/uL Basophils # (Auto) 0.0 0.0-0.1 10^3/uL Immature Granulocyte # (Auto) 0.0 0.0-0.1 10^3/uL Neutrophils % (Manual) 87 % Lymphocytes % (Manual) 4 % Monocytes % (Manual) 4 % Band Neutrophils 5 % Blood Morphology Comment NORMAL Prothrombin Time 15.4 H 12.2-14.7 SEC INR Comment 1.2 0.8-1.4 Activated Partial Thromboplast Time 37 H 24-35 SEC Sodium Level 134 L 135-145 MMOL/L Potassium Level 3.7 3.6-5.0 MMOL/L Chloride Level 96 L 98-107 MMOL/L Carbon Dioxide Level 22 21-32 MMOL/L Anion Gap 16 H 5-14 MMOL/L Blood Urea Nitrogen 13 7-18 MG/DL Creatinine 0.74 0.60-1.30 MG/DL Estimat Glomerular Filtration Rate > 60 BUN/Creatinine Ratio 18 Glucose Level 130 H 70-105 MG/DL Lactic Acid Level 1.13 0.50-2.00 MMOL/L Calcium Level 8.9 8.5-10.1 MG/DL Corrected Calcium 9.1 8.5-10.1 MG/DL Total Bilirubin 1.1 H 0.1-1.0 MG/DL Aspartate Amino Transf (AST/SGOT) 18 5-34 U/L Alanine Aminotransferase (ALT/SGPT) 18 0-55 U/L Alkaline Phosphatase 57 40-136 U/L Troponin I < 0.028 <0.028 NG/ML C-Reactive Protein High Sensitivity 22.04 H 0.00-0.50 MG/DL Total Protein 7.1 6.4-8.2 GM/DL Albumin 3.7 3.2-4.5 GM/DL Procalcitonin 0.21 H <0.10 NG/ML Micro Results Microbiology 04/07/20 Influenza Types A,B Antigen (IRENE) - Final, Complete My Orders Orders - NIC SULLIVAN Cbc With Automated Diff (04/07/20 10:08) Comprehensive Metabolic Panel (04/07/20 10:08) Blood Culture (04/07/20 10:08) Sputum Culture (04/07/20 10:08) Urinalysis (04/07/20 10:08) Urine Culture (04/07/20 10:08) Protime With Inr (04/07/20 10:08) Partial Thromboplastin Time (04/07/20 10:08) Chest 1 View, Ap/Pa Only (04/07/20 10:08) Ed Iv/Invasive Line Start (04/07/20 10:08) Ed Iv/Invasive Line Start (04/07/20 10:08) Ekg Tracing (04/07/20 10:08) Troponin I (04/07/20 10:08) Vital Signs Adult Sepsis Patie Q15M (04/07/20 10:08) Ondansetron Injection (Zofran Injectio (04/07/20 10:15) O2 (04/07/20 10:08) Remove Rings In Anticipation O (04/07/20 10:08) Lactic Acid Analyzer (04/07/20 10:08) Influenza A And B Antigens (04/07/20 10:08) Lactated Ringers (Lr 1000 Ml Iv Solution (04/07/20 10:08) Cefepime Injection (Maxipime Injection) (04/07/20 10:15) Vancomycin Injection (Vancomycin Injecti (04/07/20 10:15) Ed Iv/Invasive Line Start (04/07/20 10:08) Ns Iv 500 Ml (Sodium Chloride 0.9%) (04/07/20 10:08) Straight Cath For Spec.-Adult (04/07/20 10:14) Ct Head/Face/Cervical Wo (04/07/20 10:14) Covid 19 Inhouse Test (04/07/20 10:14) Procalcitonin (Pct) (04/07/20 10:14) Hs C Reactive Protein (04/07/20 10:14) Orthostatic Vital Signs (Adult (04/07/20 10:14) Manual Differential (04/07/20 10:52) Medications Given in ED Current Medications Medications Dose Ordered Sig/Lizzie Route Start Time Stop Time Status Last Admin Dose Admin Cefepime HCl 1000 mg/Sterile Water 10 ml @ 200 mls/hr ONCE ONCE IV 04/07/20 10:15 04/07/20 10:17 DC 04/07/20 12:06 200 MLS/HR Lactated Ringer's 1,000 ml @ 0 mls/hr Q0M ONCE IV 04/07/20 10:08 04/07/20 10:14 DC 04/07/20 11:41 1,000 MLS/HR Ondansetron HCl 8 mg PRN PRN IV 04/07/20 10:15 04/07/20 12:06 DC 04/07/20 12:05 8 MG Sodium Chloride 500 ml @ 0 mls/hr Q0M ONCE IV 04/07/20 10:08 04/07/20 10:14 DC 04/07/20 12:06 500 MLS/HR Vancomycin HCl 1000 mg/Sodium Chloride 250 ml @ 250 mls/hr ONCE ONCE IV 04/07/20 10:15 04/07/20 11:14 DC 04/07/20 12:06 250 MLS/HR Vital Signs/I&O 04/07/20 09:53 Temp 38.0 Pulse 118 Resp 18 B/P (MAP) 129/76 (93) Pulse Ox 94 O2 Delivery Room Air Blood Pressure Mean: 93 Progress Progress Note : Time: 12:46 Progress Note Tachycardia with borderline temperature. Plan to do a septic workup. 1 L would be approximately 20 mL per kilogram. She has a good blood pressure. Plan to give her vancomycin and Zosyn since she was recently in the hospital. Rapid COVID was negative. She has a lobar pneumonia and so bacterial will be our primary pursuit. Sepsis based on tachypnea and tachycardia on arrival. Initial ECG Impression Date: Apr 07, 2020 Initial ECG Impression Time: 11:31 Initial ECG Rate: 106 Initial ECG Rhythm: S.Tach Initial ECG Intervals: Normal Initial ECG Impression: Normal Comment Sinus tachycardia with no clinically relevant ST elevation or depression. Mild respiratory artifact. Diagnostic Imaging Diagonstic Imaging: Xray Plain Films/CT/US/NM/MRI: chest Comments [facility] [place] [place] NAME: GISELA TURCIOS [facility] REC#: [id number] PT STATUS: REG ER : 1950 PHYSICIAN: NIC SULLIVAN MD ADMIT DATE: 04/07/20/ER Signed Date of Exam:04/07/20 CHEST 1 VIEW, AP/PA ONLY INDICATION: Dehydration. Sepsis. Fall. Comparison with 08/28/2016. FINDINGS: There is a consolidated alveolar infiltrate in the right lower lobe. Left lung is well-aerated and clear. Heart is not enlarged. Median sternotomy changes. Pulmonary vasculature is normal. No pneumothorax or pleural effusion. IMPRESSION: Findings consistent with right lower lobe pneumonia developing since previous exam. Dictated by: Dictated on workstation # [id number] Dict: 04/07/20 1053 Trans: 04/07/20 1130 [facility] [id number] Interpreted by: KAREY SPENCER MD Electronically signed by: KAREY SPENCER MD 04/07/20 1130 Reviewed: Reviewed by Me Diagonstic Imaging: CT Plain Films/CT/US/NM/MRI: c-spine, head Comments [facility] [place], [place] NAME: GISELA TURCIOS [facility] REC#: [id number] PT STATUS: REG ER : 1950 PHYSICIAN: NIC SULLIVAN MD ADMIT DATE: 04/07/20/ER Draft Date of Exam:04/07/20 CT HEAD/FACE/CERVICAL WO CLINICAL INDICATION: Patient slipped out of chair today status post fall. EXAM: Axial Head CT without IV contrast with coronal and sagittal reformatted images. Axial Maxillofacial CT scan without IV contrast with sagittal and coronal reformations. Axial CT scan of the cervical spine with sagittal and coronal reformations. Auto Exposure Controls were utilized during the CT exam to meet ALARA standards for radiation dose reduction. COMPARISON: CT scan of the head and cervical spine without contrast dated 03/23/2020. FINDINGS: Head CT and maxillofacial: Again seen cochlear implant overlying the right side of the head with associated streak artifact obscuring portions of the brain. Also hearing aid is seen overlying the left side of the head with some streak artifact obscuring portions of the brain. Skull streak artifact obscures portions of the brainstem, posterior fossa, and portions of the brain near the skull. There is no evidence of acute cerebral infarct, intracranial hemorrhage, or gross mass effect. Stable brain parenchymal volume loss is seen. Stable focal and patchy areas of low-attenuation white matter changes involving both cerebral hemispheres, likely representing chronic small vessel ischemic disease. There is normal patterson-white matter distinction. There is no significant midline shift or herniation. There is no evidence of hydrocephalus. The basal cisterns are unremarkable. There is interval slight decreased size of the small area of extracranial soft tissue swelling involving the right frontal region. There is no skull fracture. The maxillofacial bony structures and mandible shows no acute fracture. Paranasal sinuses are clear. There is mild consolidation involving the left mastoid air cells and [id number] amount of consolidation involving the right mastoid air cells. Wall up right mastoidectomy changes are seen with associated right cochlear implant. Otherwise, the skull, extracranial soft tissue, and orbits are unremarkable. The paranasal sinuses are unremarkable. Cervical spine: There is no acute cervical spine fracture. There are stable grade 1 anterolisthesis C4 on C5 and C5 on C6 with no pars defect and likely degenerative. There are stable cervical spine vertebral body spurs and facet arthropathy. Stable [id number] loss of disc space height at the C6-C7 level with diffuse disc bulge. The neck soft tissue structures are stable with no significant abnormality. IMPRESSION: 1: There is no evidence of acute intracranial process. There is no skull or maxillofacial fracture. 2: Stable cervical spine degenerative disease with no acute fracture. Dictated on workstation # [id number] Dict: 04/07/20 1210 Trans: 04/07/20 1221 [facility] [id number] Interpreted by: KILO ABDALLA MD Electronically signed by: Reviewed: Reviewed by Me Departure Communication (Admissions) Time/Spoke to Admitting Phy: 12:30 Discussed the case with Dr. Driver and she agrees to admit the patient to the floor for sepsis, pneumonia. Vancomycin and Zosyn. Impression Primary Impression: Multiple falls Additional Impressions: Pneumonia Qualified Codes: J18.9 - Pneumonia, unspecified organism Parkinsons Sepsis Qualified Codes: A41.9 - Sepsis, unspecified organism Disposition: ADMITTED INPATIENT Condition: Stable Admissions Decision to Admit Reason: Admit from ER (General) Decision to Admit/Date: Apr 07, 2020 Time/Decision to Admit Time: 11:53 Departure-Patient Inst. Referrals: [facility] (PCP) Primary Care Physician ANGELINE GUZMAN APRN (Family) Primary Care Physician NIC SULLIVAN Apr 07, 2020 12:46
[2020-04-07] MEDS ORDERED: PIPERACILLIN SODIUM/TAZOBACTAM 4.5 GM in NS (IVPB) 100 ML IV ONE (13:00)
--- NOTE | 2020-04-07 13:11 | History & Physical-Hospitalist ---
KEN MANUEL MED STUDENT 04/07/20 1311: History of Present Illness HPI/Chief Complaint Ms. Escalante is a 70 y/o F with PMH of parkinson's disease and recent admission for UTI 03/24-04/01 who presents to [facility] ED with chief complaint of fall. She said she fell this morning. She denies LOC or being on blood thinners. She said she stood up and her legs felt weak. She denies hitting her head. She also reports falling approximately 2 weeks ago and hit her head at this time. She said the bruises on her head are healing and look better today than what they used to. She said her weakness started on Sunday when she starting dry heaving. She denies sick contacts and said she has been dehydrated over the past couple days due to this dry heaving. She saw her PCP who said she was dehdyrated as well. She denies any nausea, vomiting, being in any pain, lightheadedness or dizziness. She said she has a hard time hearing questions because the battery on her cochlear implant this morning but she was able to understand most questions when reading lips and speaking loudly. Source: patient, family, RN/MD, RN notes reviewed, old records Exam Limitations: other (hearing impairment from cochlear implant batteries) Date Seen 04/07/20 Time Seen by a Provider: 13:[address] Driver [facility] [place] Referring Physician Date of Admission 04/07/20 Home Medications & Allergies Home Medications Reviewed patient Home Medication Reconciliation performed by pharmacy medication reconciliations semiconductor equipment technician and/or nursing. Patients Allergies have been reviewed. Allergies Allergies Coded Allergies codeine (Unverified Allergy, Unknown, 02/12/17) morphine (Verified Allergy, Unknown, NAUSEA, 02/12/17) Past Ligwjxn-Lujymc-Akztlm Hx Patient Social History Alcohol Use: Denies Use Recreational Drug Use: No Smoking Status: Never a Smoker 2nd Hand Smoke Exposure: No Recent Foreign Travel: No Contact w/other who traveled: No Recent Hopitalizations: No (DECEMBER 2016-) Recent Infectious Disease Expo: No Immunizations Up To Date Tetanus Booster (TDap): Unknown Pediatric: No Date of Pneumonia Vaccine: Jun 18, 2014 Date of Influenza Vaccine: Mar 24, 2016 Seasonal Allergies Seasonal Allergies: Yes Past Medical History Surgeries: Appendectomy, Cardiac, Hysterectomy, Nephrectomy, Oophorectomy, Orthopedic, Renal, Tonsillectomy, Valve Replacement Currently Using CPAP: No Currently Using BIPAP: No Cardiac: Atrial Fibrillation, Hypertension, Valvular Heart Disease Neurological: Neuropathy, Parkinson's Disease Reproductive: No Sexually Transmitted Disease: No HIV/AIDS: No Genitourinary: Renal Failure Gastrointestinal: Chronic Diarrhea Musculoskeletal: Degenerate Disk Disease, Arthritis HEENT: Cataract Hearing Impairment: Hard of Hearing, Hearing Aide Left Cancer: Kidney Psychosocial: Anxiety, Depression History of Blood Disorders: No Adverse Reaction to Blood Martins: No (HAS HAD BLOOD WITH NO REACTION) Family History Patient reports no known family medical history. No Pertinent Family Hx Review of Systems Constitutional: see HPI; No chills, No dizziness; weakness EENTM: see HPI, hearing loss; No blurred vision, No double vision, No epistaxis Respiratory: see HPI; No cough, No dyspnea on exertion, No hemoptysis, No short of breath Cardiovascular: see HPI; No chest pain Gastrointestinal: No RUQ, No LUQ, No RLQ, No LLQ; see HPI; No abdominal pain, No constipation, No diarrhea, No nausea; vomiting ("dry-heaving") Genitourinary: see HPI Musculoskeletal: see HPI; No back pain, No muscle pain, No neck pain Skin: see HPI Psychiatric/Neurological: Denies Headache; Weakness Physical Exam Physical Exam Vital Signs Vital Signs - First Documented 04/07/20 09:53 Temp 38.0 Pulse 118 Resp 18 B/P (MAP) 129/76 (93) Pulse Ox 94 O2 Delivery Room Air Capillary Refill : Less Than 3 Seconds Height, Weight, BMI Height: 5'1.00" Weight: 127lbs. 1.0oz. 57.417971qg; 19.00 BMI Method:Stated General Appearance: Mild Distress Eyes: Right Eye Normal Inspection, Right Eye PERRL, Right Eye EOMI HEENT: Moist Mucous Membranes Respiratory: Chest Non Tender, Lungs Clear, Normal Breath Sounds, No Respiratory Distress Cardiovascular: Regular Rate, Rhythm, No Edema, No JVD, No Murmur, Normal Peripheral Pulses Gastrointestinal: Normal Bowel Sounds, No Pulsatile Mass, Non Tender, Soft Back: Normal Inspection, No CVA Tenderness, No Vertebral Tenderness Extremity: Normal Capillary Refill, Normal Range of Motion Neurologic/Psychiatric: Alert, Oriented x3, Normal Mood/Affect, validation consultant II-XII Norm as Tested Skin: Warm/Dry, Ecchymosis (areas of healed bruising around bilateral eyes and RLQ abdomen) Results Results/Procedures Labs Laboratory Tests 04/07/20 10:52 Patient resulted labs reviewed. Assessment/Plan Admission Diagnosis Fall Assessment and Plan Patient is a 70 y/o F with Parkinson's Disease who presented to ED with chief complaint of fall and admitted with concern for pneumonia as seen on CXR. Pneumonia - evidence of consolidation of right lower lobe on CXR today - Will hydrate with IVF and antibiotics - Sputum culture Fall - No apparent injuries on physical exam - Patient denies hitting head - CT head/neck showed no intracranial hemorrhage or fracture - Will monitor for any additional symptom development warranting further workup - Etiology likely related to dehydration secondary to infection Hard of hearing - Cochlear implants dropped off by Anion gap elevated - likely related to pneumonia seen on CXR - Will monitor with daily labs CHAYA DRIVER DO 04/07/204: History of Present Illness HPI/Chief Complaint CC: Fall with weakness HPI: This is a 76yoWF clinic Pt of [facility] who I just discharged last from rehab after a stay from Inpatient Rehab after a UTI and hypokalemia with severe Parkinsons who presented to the ER after suffering a fall today, had gone to urgent care this past week and diagnosed with dehydration but no other treatment given and she became weaker and weaker. At this current time she was trying to find batteries for her cochlear implants and she was having ang rigors so she was dick-cultured urine did not show any evidence of any infection but did have a right lower lobe pneumonia. She met criteria for IV fluid resuscitation along with antibiotic and she will be admitted to med-surg. I did update her at 1500 hours and updated him on the plan and [facility]. Past Lazacyp-Ehnghj-Ekkxac Hx Past Med/Social Hx: Reviewed Nursing Past Med/Soc Hx, Reviewed and Corrections made Patient Social History Marrital Status: Employed/Student: retired Alcohol Use: Denies Use Smoking Status: Never a Smoker Past Medical History Neurological: Parkinson's Disease Genitourinary: Kidney Infection Family History Patient reports no known family medical history. Review of Systems Constitutional: see HPI, fever Physical Exam Physical Exam General Appearance: No Apparent Distress, Chronically ill Respiratory: No Accessory Muscle Use, No Respiratory Distress, Decreased Breath Sounds Assessment/Plan Admission Diagnosis Assessment: RLL PNA considered HAP since just DC IRF Fall Parkinson's disease Falls frequently Renal transplant status h/o C diff colitis life threatening type Plan: PNA protocol Fall risk prevention Flagyl PO with probiotic to prevent c diff colitis with probiotic Home meds Admission Status: Inpatient Order (span 2 midnights) Reason for Inpatient Admission: pna Diagnosis/Problems Diagnosis/Problems (1) Pneumonia Status: Acute Qualifiers: Pneumonia type: due to unspecified organism Laterality: right Lung location: lower lobe of lung Qualified Codes: J18.9 - Pneumonia, unspecified organism (2) Parkinsons Status: Acute (3) Multiple falls Status: Acute (4) Kidney transplant recipient Status: Acute (5) Generalized weakness Status: Acute Supervisory-Addendum Brief Verification & Attestation Participated in pt care: history, MDM, physical Personally performed: exam, history, MDM, supervision of care Care discussed with: Medical Student Procedures: n/a Results interpretation: Verified all documentation Verification and Attestation of Medical Student E/M Service A medical student performed and documented this service in my presence. I reviewed and verified all information documented by the medical student and made modifications to such information, when appropriate. I personally performed the physical exam and medical decision making. Chaya Driver, Apr 07, 2020,21:05 KEN MANUEL MED STUDENT Apr 07, 2020 13:11 CHAYA DRIVER DO Apr 07, 2020 21:04
--- NOTE | 2020-04-07 14:30 | NUR ---
GISELA TURCIOS admitted to room 410-1, with an admitting diagnosis of PNEMONIA, on 04/07/20 from AM via ed, accompanied by STAFF.GISELA TURCIOS introduced to surroundings, call light, bed controls, phone, TV, temperature control, lights, meal times, smoking policy, visitor policy, side rail policy, bathrooms and showers. Patient Rights given to patient in the handbook. GISELA TURCIOS verbalizes understanding that [facility] is not responsible for the loss or damage to any personal effects or valuables that are kept in the patients posession during their hospitalization. GISELA TURCIOS verbalizes understanding of Interdisciplinary Patient Education. Patient and/or family were informed about the Rapid Response Team and its purpose.
[2020-04-07 14:39] VITALS: BP 133/60
--- NOTE | 2020-04-07 15:08 | NUR ---
CR 0.74; CR CL ~37; WT 51.6 KG; VANCO 1 GM IV GIVEN IN ER; CONTINUE WITH VANCO 1000 MG IV Q24HX 3 DAYS
[2020-04-07] MEDS ORDERED: ANTACID SUSP 30 ML UDC (MYLANTA) PO PRN (15:15)
[2020-04-07] MEDS ORDERED: CATHETER FLUSH 10 ML SYR IV PRN (15:15)
[2020-04-07] MEDS ORDERED: ACETAMINOPHEN 325 MG TABLET PO PRN (15:15)
[2020-04-07] MEDS ORDERED: PIPERACILLIN/TAZO 4.5 GM/NS 100 ML IV NR ×2 (15:30)
[2020-04-07 16:00] VITALS: BP 126/59
[2020-04-07] MEDS: LACTATED RINGERS 1,000 ML IV SCH ×2 (16:23→22:06)
[2020-04-07 16:43] VITALS: BP 126/59
[2020-04-07] MEDS ORDERED: ONDA4TAB11 PO (16:52)
[2020-04-07] MEDS ORDERED: ZOLP5TAB7 PO (16:52)
--- NOTE | 2020-04-07 16:58 | NUR ---
I SPOKE WITH THE PATIENT'S , AMRITA, CALLED [facility], WENT THROUGH PREVIOUS NOTES AND THE EXTERNAL MED HISTORY TO COMPLETE THIS MED REC. AMRITA SAID THAT ALL MEDICATIONS STAYED THE SAME SINCE LAST MED REC DONE 03/23/2020 OTHER THAN SHE TAKES ZOFRAN PRN NOW TOO. FILL DATES FROM [facility]: 01/27/2020 RESTASIS #180/90DS 02/16/2020 LOTRONEX 1MG #180/90DS 02/18/2020 BACLOFEN 10MG #60/60DS 02/24/2020 DICYCLOMINE 20 MG #60 02/24/2020 LIVALO 1MG #30/30DS 02/25/2020 AZOPT #1 03/06/2020 ARIPIPRAZOLE 5MG #30/30DS 03/19/2020 GABAPENTIN 600MG #84/28DS 04/01/2020 BUPROPION 100MG #30/30DS FILL DATES FROM [facility]: 03/23/2020 MYFORTIC 360MG #60/30DS 03/23/2020 PROGRAF 1MG #60/30DS OTC: ASPIRIN 81MG FAMOTIDINE FLONASE IMODIUM NEPHRO-BETITO PROBIOTIC VITAMIN C CRANBERRY PREVACID
[2020-04-07] MEDS ORDERED: NON-FORMULARY MEDICATION 1 EA EA (Fluticasone Propionate (Flonase Allergy Relief) 2 SPRAY) NS PRN (17:00)
[2020-04-07] MEDS ORDERED: LOPERAMIDE HCL PO PRN (17:00)
[2020-04-07] MEDS ORDERED: RT-ALBUTEROL SULF 2.5 MG/3 ML PRE-MIX VIAL INH PRN (17:00)
[2020-04-07] MEDS ORDERED: [UNRECOGNIZED DRUG - OTHER] PO PRN (17:00)
[2020-04-07] MEDS ORDERED: PATIENT MAY USE OWN MEDS, ALL MC SCH (17:00)
[2020-04-07] MEDS ORDERED: ONDANSETRON 4 MG (ZOFRAN) ORAL DISSOLVE TAB PO PRN (17:00)
[2020-04-07] MEDS ORDERED: DICYCLOMINE HCL 10 MG PO SCH (17:00)
[2020-04-07] MEDS ORDERED: SIMETHICONE PO PRN (17:00)
[2020-04-07] MEDS ORDERED: ARTIFICAL TEARS 0.4 ML UNIT DOSE (REFRESH PLUS) OU PRN (17:30)
[2020-04-07] MEDS ORDERED: FLUTICASONE NASAL SPRAY (FLONASE) 16 GM BTL NS PRN (17:30)
[2020-04-07] MEDS: metroNIDAZOLE 250 MG (FLAGYL) TAB PO SCH ×2 (17:39→18:04)
[2020-04-07] MEDS: LACTOBACILLUS ACIDOPHILUS (PROBIOTIC) CAPSULE PO SCH (17:39)
[2020-04-07] MEDS ORDERED: ARTIFICAL TEARS 0.4 ML UNIT DOSE (REFRESH PLUS) OD PRN (17:45)
--- NOTE | 2020-04-07 18:00 | NUR ---
INFORMED PT ABOUT HOME MED ORDER, SHE WILL HAVE BRING MEDS UP TOMORROW
[2020-04-07 20:08] VITALS: BP 124/69
[2020-04-07] MEDS: DORZOLAMIDE 2% 10 ML BTL (TRUSOPT) OD SCH ×2 (20:13→20:22)
[2020-04-07] MEDS: ZOLPIDEM 5 MG (AMBIEN) TAB PO SCH (20:13)
[2020-04-07] MEDS: BACLOFEN 10 MG (LIORESAL) TAB PO SCH (20:14)
[2020-04-07] MEDS: DICYCLOMINE 10 MG (BENTYL) CAP PO SCH (20:15)
[2020-04-07] MEDS: MYCOPHENOLIC ACID 360 MG PO SCH (20:15)
[2020-04-07] MEDS: ASPIRIN E.C. 81 MG (ECOTRIN) TAB PO SCH (20:15)
[2020-04-07] MEDS: TACROLIMUS 1 MG (PROGRAF) CAP NON-FORMULARY PO SCH (20:16)
[2020-04-07] MEDS: GABAPENTIN 600 MG (NEURONTIN) TAB PO SCH (20:18)
[2020-04-07] MEDS ORDERED: ALOSETRON HCL 1 MG PO SCH (21:00)
[2020-04-07] MEDS ORDERED: NON-FORMULARY MEDICATION 1 EA EA (Cyclosporine (Restasis) 1 EACH) OD SCH (21:00)
[2020-04-07] MEDS ORDERED: BRINZOLAMIDE OD SCH (21:00)
[2020-04-07] MEDS ORDERED: NON-FORMULARY MEDICATION 1 EA EA (Aripiprazole 5 MG) PO SCH (21:00)
[2020-04-07] MEDS ORDERED: NON-FORMULARY MEDICATION 1 EA EA (Cranberry Fruit Concentrate (Cranberry) 450 MG) PO SCH (21:00)
[2020-04-07] MEDS: PIPERACILLIN/TAZO 4.5 GM/NS 100 ML IV SCH ×2 (22:06)
[2020-04-08] VITALS (8 sets, daily range): BP systolic 111–127; BP diastolic 56–73
[2020-04-08] MEDS: LACTATED RINGERS 1,000 ML IV SCH ×4 (04:41→23:41)
[2020-04-08 05:25] LABS: BASOPHILS % (AUTO) 0 % (0-10); EOSINOPHILS % (AUTO) 0 % (0-10); HEMATOCRIT 29 % (35-52); HEMOGLOBIN 9.9 g/dL (11.5-16.0); LYMPHOCYTES # (AUTO) 0.6 10^3/uL (1.0-4.0); LYMPHOCYTES % (AUTO) 9 % (12-44); MEAN CORPUSCULAR HEMOGLOBIN 29 pg (25-34); MEAN CORPUSCULAR HGB CONC 34 g/dL (32-36); MEAN CORPUSCULAR VOLUME 85 fL (80-99); MEAN PLATELET VOLUME 10.6 fL (9.0-12.2); MONOCYTES # (AUTO) 0.5 10^3/uL (0.0-1.0); MONOCYTES % (AUTO) 7 % (0-12); NEUTROPHILS # (AUTO) 5.1 10^3/uL (1.8-7.8); NEUTROPHILS % (AUTO) 83 % (42-75); PLATELET COUNT 164 10^3/uL (130-400); WHITE BLOOD COUNT 6.2 10^3/uL (4.3-11.0)
[2020-04-08 05:55] LABS: ALANINE AMINOTRANSFERASE 13 U/L (0-55); ALBUMIN 2.6 GM/DL (3.2-4.5); ALKALINE PHOSPHATASE 36 U/L (40-136); BUN/CREATININE RATIO 13; CALCIUM 7.8 MG/DL (8.5-10.1); CARBON DIOXIDE 20 MMOL/L (21-32); CHLORIDE 100 MMOL/L (98-107); GFR ESTIMATED > 60; GLUCOSE 86 MG/DL (70-105); POTASSIUM 3.4 MMOL/L (3.6-5.0); SODIUM 131 MMOL/L (135-145); TOTAL PROTEIN 4.9 GM/DL (6.4-8.2)
[2020-04-08] MEDS: PIPERACILLIN/TAZO 4.5 GM/NS 100 ML IV SCH ×6 (05:55→22:13)
[2020-04-08] MEDS: MULTIVIT W/MINERALS TAB (THERAGRAN M) PO SCH (05:55)
--- NOTE | 2020-04-08 07:56 | Diagnostic Imaging Report ---
EXAMINATION: Chest 1 view HISTORY: Right lower lobe pneumonia COMPARISON: Chest radiograph 04/07/2020 FINDINGS: Heart size and pulmonary vasculature are stable with surgical changes from median sternotomy. Decreased lung volumes bilaterally with increased bibasilar atelectasis or consolidation. No pleural effusion or pneumothorax. The osseous structures are intact. IMPRESSION: 1. Decreased lung volumes with increased bibasilar atelectasis or consolidation. Dictated by: Dictated on workstation # [id number]
[2020-04-08] MEDS: LACTOBACILLUS ACIDOPHILUS (PROBIOTIC) CAPSULE PO SCH ×3 (08:49→17:47)
[2020-04-08] MEDS: ASPIRIN E.C. 81 MG (ECOTRIN) TAB PO SCH ×2 (08:50→20:02)
[2020-04-08] MEDS: metroNIDAZOLE 250 MG (FLAGYL) TAB PO SCH ×2 (08:50→17:46)
[2020-04-08] MEDS: clonazePAM 0.5 MG (KlonoPIN) TAB PO SCH (08:50)
[2020-04-08] MEDS: buPROPion 100 MG (WELLBUTRIN) TAB PO SCH (08:51)
[2020-04-08] MEDS: BACLOFEN 10 MG (LIORESAL) TAB PO SCH ×2 (08:51→20:01)
[2020-04-08] MEDS: amLODIPine 2.5MG (NORVASC) TAB PO SCH (08:52)
[2020-04-08] MEDS: GABAPENTIN 600 MG (NEURONTIN) TAB PO SCH ×3 (08:52→20:00)
[2020-04-08] MEDS: PANTOPRAZOLE 20 MG TABLET (PROTONIX) PO SCH (08:52)
[2020-04-08] MEDS: DICYCLOMINE 10 MG (BENTYL) CAP PO SCH ×4 (08:52→20:10)
[2020-04-08] MEDS: FAMOTIDINE 20 MG (PEPCID) TABLET PO SCH (08:53)
[2020-04-08] MEDS: TACROLIMUS 1 MG (PROGRAF) CAP NON-FORMULARY PO SCH ×2 (08:53→20:03)
[2020-04-08] MEDS: MYCOPHENOLIC ACID 360 MG PO SCH ×2 (08:54→20:02)
[2020-04-08] MEDS: DORZOLAMIDE 2% 10 ML BTL (TRUSOPT) OD SCH ×2 (08:59→20:07)
[2020-04-08] MEDS: ASCORBIC ACID (VIT C) 500 MG TABLET PO SCH (08:59)
[2020-04-08] MEDS ORDERED: PITAVASTATIN CALCIUM 1 MG PO SCH (09:00)
[2020-04-08] MEDS ORDERED: VITAMIN B COMP W C PO SCH (09:00)
[2020-04-08] MEDS ORDERED: FOLIC ACID PO SCH (09:00)
[2020-04-08] MEDS ORDERED: LANSOPRAZOLE 15 MG PO SCH (09:00)
[2020-04-08] MEDS ORDERED: NON-FORMULARY MEDICATION 1 EA EA (L.acidoph & Paracasei,B.lactis (Probiotic) 1 CAP) PO SCH (09:00)
[2020-04-08] MEDS ORDERED: NON-FORMULARY MEDICATION 1 EA EA (Ascorbate Calcium (Vitamin C) 500 MG) PO SCH (09:00)
[2020-04-08] MEDS ORDERED: [UNRECOGNIZED DRUG - OTHER] PO SCH (09:00)
[2020-04-08] MEDS ORDERED: PANTOPRAZOLE 40 MG (PROTONIX) TAB PO SCH (09:00)
--- NOTE | 2020-04-08 11:13 | NUR ---
Pt is Zoroastrianism. Crotch Piece Baster offered Communion but pt said her mouth is too dry and shew would have trouble swallowing. Crotch Piece Baster will check on another day.
--- NOTE | 2020-04-08 11:43 | Progress Note - Hospitalist ---
KEN MANUEL MED STUDENT 04/08/20 1143: Subjective HPI/CC On Admission Date Seen by Provider: Apr 08, 2020 Time Seen by Provider: 11:38 CC: Fall with weakness HPI: This is a 76yoWF clinic Pt of [facility] who I just discharged last from rehab after a stay from Inpatient Rehab after a UTI and hypokalemia with severe Parkinsons who presented to the ER after suffering a fall today, had gone to urgent care this past week and diagnosed with dehydration but no other treatment given and she became weaker and weaker. At this current time she was trying to find batteries for her cochlear implants and she was having ang rigors so she was dick-cultured urine did not show any evidence of any infection but did have a right lower lobe pneumonia. She met criteria for IV fluid resuscitation along and she will be admitted to med-surg. I did update her at 1500 hours and updated him on the plan and he wants her to go to [facility] [place] upon discharge. Subjective/Events-last exam Patient reports feeling much better today. She said she is tired but has no other complaints. Review of Systems General: No Chills; Fatigue HEENT: No Head Aches, No Visual Changes Pulmonary: No Dyspnea, No Cough Cardiovascular: No: Chest Pain, Palpitations, Lt Headedness Gastrointestinal: No: Nausea, Vomiting, Abdominal Pain, Diarrhea, Constipation, Melena Neurological: No: Weakness, Numbness, Confusion Focused Exam Lactate Level 04/07/20 10:52: Lactic Acid Level 1.13 Time of Focused Exam: 12:47 Objective Exam Vital Signs Vital Signs Date Time Temp Pulse Resp B/P (MAP) Pulse Ox O2 Delivery O2 Flow Rate FiO2 04/08/20 08:00 37.2 84 18 127/61 (83) 93 Room Air 04/07/20 16:00 2.00 Capillary Refill : Less Than 3 SecondsLess Than 3 Seconds General Appearance: No Apparent Distress, WD/WN, Thin HEENT: Normal ENT Inspection Neck: Full Range of Motion, Normal Inspection Respiratory: Chest Non Tender, Lungs Clear, No Respiratory Distress Cardiovascular: Regular Rate, Rhythm, No JVD, No Murmur, Normal Peripheral Pulses Gastrointestinal: Normal Bowel Sounds, No Organomegaly, No Pulsatile Mass, Non Tender, Soft Back: Normal Inspection, No CVA Tenderness Extremity: Normal Inspection, Normal Range of Motion, Non Tender, No Calf Tenderness Neurologic/Psychiatric: Alert, Oriented x3, No Motor/Sensory Deficits, Normal Mood/Affect Skin: Normal Color, Warm/Dry Results/Procedures Lab Laboratory Tests 04/08/20 04:45 Patient resulted labs reviewed. Assessment/Plan Assessment and Plan Assess & Plan/Chief Complaint Patient is a 70 y/o F with Parkinson's Disease who presented to ED with chief complaint of fall and admitted with concern for pneumonia as seen on CXR. Pneumonia - Given antibiotics for possible pneumonia - However CXR today showed no signs of pneumonia but did show bibasilar atelectasis or consolidation - Continue antibiotics and encourage incentive spirometry Recurrent falls - Will need to go to SNF at discharge to recover some strength to avoid future falls Dehydrated - Continue IVF, which also likely explains CBC lab changes today Clinical Quality Measures DVT/VTE Risk/Contraindication: Risk Factor Score Per Nursin RFS Level Per Nursing on Admit: 4+=Very High CHAYA DRIVER DO 04/08/202123: Subjective Subjective/Events-last exam CXR much improved today Hgb 9.9 Sodium level 131 PT and OT maintained C-diff Colitis prevention with Flagyl and probiotic Review of Systems General: Fatigue Neurological: Weakness Objective Exam General Appearance: No Apparent Distress, WD/WN, Chronically ill Respiratory: Lungs Clear Cardiovascular: Regular Rate, Rhythm Assessment/Plan Assessment and Plan Assess & Plan/Chief Complaint Deescalate abx tomorrow Monitor BP Home meds Diagnosis/Problems Diagnosis/Problems (1) Pneumonia Status: Acute Qualifiers: Qualified Codes: J18.9 - Pneumonia, unspecified organism (2) Generalized weakness Status: Acute (3) Multiple falls Status: Acute (4) Parkinsons Status: Acute (5) Kidney transplant recipient Status: Acute Supervisory-Addendum Brief Verification & Attestation Participated in pt care: history, MDM, physical Personally performed: exam, history, MDM, supervision of care Care discussed with: Medical Student Procedures: n/a Results interpretation: Verified all documentation Verification and Attestation of Medical Student E/M Service A medical student performed and documented this service in my presence. I revi ewed and verified all information documented by the medical student and made modifications to such information, when appropriate. I personally performed the physical exam and medical decision making. Chaya Driver, Apr 08, 2020,21:23 KEN MANUEL MED STUDENT Apr 08, 2020 11:43 CHAYA DRIVER DO Apr 08, 2020 21:24
--- NOTE | 2020-04-08 11:48 | Physical Therapy Evaluation ---
PT Evaluation-General Medical Diagnosis Admission Date Apr 07, 2020 at 13:00 Medical Diagnosis: fall/pneumonia/sepsis Onset Date: Apr 07, 2020 Therapy Diagnosis Therapy Diagnosis: debility/weakness Height/Weight Height (Feet): 5 Height (Inches): 1.00 Weight (Pounds): 127 Weight (Ounces): 1.0 Precautions Precautions/Isolations: Fall Prevention, Standard Precautions Referral Physician: Zabrina Reason for Referral: Evaluation/Treatment Medical History Pertinent Medical History: Atrial Fib, HTN, Neuropathy, Parkinson's, Renal Insufficiency (kidney transplant) Current History EMs from home to ER secondary to UTI/slipped out of chair and sepsis Reviewed History: Yes Social History Home: Apartment (duplex) Current Living Status: Spouse Entry Into Home: Level Entry Prior Prior Level of Function SCALE: Activities may be completed with or without assistive devices. 7-Hszxpcdqdz-dwqastk completes the activity by him/herself with no assistance from a helper. 5-Set-up or Clean-up Assistance-helper sets up or cleans up; patient completes activity. Vernalis assists only prior to or following the activity. 4-Supervision or Touching Assistance-helper provides verbal cues and/or touching/steadying and/or contact guard assistance as patient completes activity. Assistance may be provided throughout the activity or intermittently. 3-Partial/Moderate Assistance-helper does LESS THAN HALF the effort. Vernalis lifts, holds or supports trunk or limbs, but provides less than half the effort. 2-Substantial/Maximal Assistance-helper does MORE THAN HALF the effort. Vernalis lifts or holds trunk or limbs and provides more than half the effort. 1-Xvpmvxaxa-rvyqll does ALL the effort. Patient does none of the effort to complete the activity. Or, the assistance of 2 or more helpers is required for the patient to complete the activity. If activity was not attempted, code reason: 7-Patient Refused. 9-Not Applicable-not attempted and the patient did not perform the activity before the current illness, exacerbation or injury. 10-Not Attempted due to Environmental Limitations-(lack of equipment, weather restraints, etc.). 88-Not Attempted due to Medical Conditions or Safety Concerns. Bed Mobility: 5 Transfers (B,C,W/C): 5 Gait: 5 Stairs: 9 Prior Devices Use: Walker PT Evaluation-Current Subjective Patient is emotional. Agrees to PT. Objective Patient Orientation: Person, Time, Situation Attachments: IV ROM/Strength ROM Lower Extremities bilateral LE WFL Strength Lower Extremities 3/5 grossly bilateral LE Integumentary/Posture Integumentary refer to nursing notes Bladder Incontinence: Yes Posture WFL Neuromuscular (Tone, Coordination, Reflexes) Parkinson's Sensory Vision: Wears Glasses Hearing: Impaired Sensation Right Lower Extremit: Impaired Sensation Left Lower Extremity: Impaired Transfers Roll Left to Right (QC): 2 Lying to Sitting/Side of Bed(Q: 2 Sit to Stand (QC): 2 Chair/Txs-mt-Lbsmm Xfer(QC): 3 Gait Does the Patient Walk?: Yes Mode of Locomotion: Walk Walk 10 feet (QC): 3 Walk 50 ft with 2 Turns(QC): 3 Walk 150 ft (QC): 3 Distance: 150' Gait Assistive Device: FWW Comments/Gait Description PT to advance FWW with CGA for safety and mobility Balance Sitting Static: Fair Sitting Dynamic: Fair Standing Static: Fair Standing Dynamic: Fair Assessment/Needs 70 y.o. female, will benefit from skilled PT to address functional strength and mobility to improve current LOF to safely return to home or care facility at maximum LOF. Rehab Potential: Fair PT Skilled Nursing Goals Skilled Nursing Goals PT Skilled Nursing Goals Time Frame: Apr 24, 2020 Roll Left & Right (QC): 5 Sit to Lying (QC): 5 Lying-Sitting on Side/Bed(QC): 5 Sit to Stand (QC): 5 Chair/Ftd-xt-Pyuwn Xfer(QC): 5 Toilet Transfer (QC): 5 Does the Patient Walk: Yes Walk 10 feet (QC): 5 Walk 50ft with 2 Turns (QC): 5 Walk 150 ft (QC): 5 PT Plan Problem List Problem List: Activity Tolerance, Functional Strength, Safety, Balance, Gait, Transfer, Bed Mobility Treatment/Plan Treatment Plan: Continue Plan of Care Treatment Plan: Bed Mobility, Education, Functional Activity Jose, Functional Strength, Gait, Safety, Therapeutic Exercise, Transfers Treatment Duration: Apr 24, 2020 Frequency: 6 times per week Estimated Hrs Per Day: .25 hour per day Patient and/or Family Agrees t: Yes Time/GCodes Time In: 1115 Time Out: 1133 Total Billed Treatment Time: 18 Total Billed Treatment 1 visit EVMod 18 min SARIAH VALLADARES PT Apr 08, 2020 11:48
[2020-04-08] MEDS ORDERED: VANCOMYCIN 1 GM/NS 250 ML IVPB IV SCH ×2 (12:00)
--- NOTE | 2020-04-08 13:04 | NUR ---
CM/SS visited with patient for discharge planning. CM/SS received a note stating patient is wanting to discharge to [facility]. CM/SS visited with patient. She states that she would like to go to [facility] until "she get's her strength back". SNF: CM/SS contacted [facility] and spoke with Greta. She reports they may be able to accept patient's tomorrow. CM/SS faxed referral. Home: The patient lives at home with her . She reports that he is in good health but is unable to pick her up when she falls. The patient uses a Platform walker. No stairs in the home. Equipment: Patient has a platform walker that was ordered off of [employer]. She has grab bars by the toilet and a shower chair. Supports: The patient has 4 adult children. Two of them live in [place] and the other two live here in [place]. She states they check in on her frequently. CM/SS will continue to follow for discharge planning.
--- NOTE | 2020-04-08 13:57 | NUR ---
"RD ASSESSMENT PMHx: PD; afib; HTN; renal failure; chronic diarrhea; CA(kidney) PT INTERACTION: Pt was awake and pleasant during nutrition assessment. Pt states current appetite is not good. Note pt has refused 2meals, per chart review. Pt states following a regular diet at home, and has no issues with chewing/swallowing food. Pt states recent issues with diarrhea. Note last BM was 04/08, and pt not currently on bowel regimen per chart review. Pt states no recent wt changes. Note recent 7# wt gain x2w, per chart review. ABNORMAL NUTRITION-RELATED LAB VALUES LOW: Na 131; K 3.4; Ca 7.8; alkphos 36; Pro 4.9; alb 2.6 HIGH: Est. kcal needs: 1375 kcal | 25 kcal/kg Est. Pro needs: 66 g Pro | 1.2 g Pro/kg PES STATEMENT: Inadequate oral intake (NI-2.1) related to loss of appetite | diarrhea as evidenced by pt interview | pt refusing 2meals INTERVENTION: Continue with current diet order of Regular diet. Add Ensure Enlive (vary) to meals TID, for increased kcal intake. Provides 350 kcal and 20 g Pro per serving. Encouraged pt to eat when able. Will continue to follow and reassess as pt needs, intake, and status change. Trent Vidal, MS RD LD"
--- NOTE | 2020-04-08 14:07 | Occupational Therapy Eval ---
OT Evaluation-General/PLF Medical Diagnosis Admission Date Apr 07, 2020 at 13:00 Medical Diagnosis: fall/pneumonia/sepsis Onset Date: Apr 07, 2020 Therapy Diagnosis Therapy Diagnosis: decreased ADL status, weakness Height/Weight Height (Feet): 5 Height (Inches): 1.00 Weight (Pounds): 127 Weight (Ounces): 1.0 Precautions Precautions/Isolations: Fall Prevention, Standard Precautions Referral Physician: Zabrina Referral Reason: Evaluation/Treatment Medical History Pertinent Medical History: Atrial Fib, HTN, Neuropathy, Parkinson's, Renal Insufficiency (kidney transplant) Additional Medical History Parkinson's, hysterectomy, nephrectomy, oophorectomy, valve replacement, AFib, HTN, valvular heart disease, neuropathy, DDD, arthritis, cochlear implant and hearing aide. Current History Recently admitted to hospital 03/24/2020-04/01/2020 with UTI and hypokalemia, ED with c/o fall on 04/07/2020. Social History Home: Apartment (duplex) Current Living Status: Spouse Entry Into Home: Level Entry ADL-Prior Level of Function SCALE: Activities may be completed with or without assistive devices. 6-Fkoopdcqni-hnnfxqa completes the activity by him/herself with no assistance from a helper. 5-Set-up or Clean-up Assistance-helper sets up or cleans up; patient completes activity. [place] assists only prior to or following the activity. 4-Supervision or Touching Assistance-helper provides verbal cues and/or touching/steadying and/or contact guard assistance as patient completes activity. Assistance may be provided throughout the activity or intermittently. 3-Partial/Moderate Assistance-helper does LESS THAN HALF the effort. [place] lifts, holds or supports trunk or limbs, but provides less than half the effort. 2-Substantial/Maximal Assistance-helper does MORE THAN HALF the effort. [place] lifts or holds trunk or limbs and provides more than half the effort. 1-Ibtpcvxdc-jmxvyd does ALL the effort. Patient does none of the effort to complete the activity. Or, the assistance of 2 or more helpers is required for the patient to complete the activity. If activity was not attempted, code reason: 7-Patient Refused. 9-Not Applicable-not attempted and the patient did not perform the activity before the current illness, exacerbation or injury. 10-Not Attempted due to Environmental Limitations-(lack of equipment, weather restraints, etc.). 88-Not Attempted due to Medical Conditions or Safety Concerns. ADL PLOF Comments Pt reports moving to a new apartment recently, it is a single story, level entry. Pt indicates prior to her recent hospitalizations, she was independent with bathing and dressing, has a storage facility housekeeper, and meals on wheels. She was independent with functional mobility using FWW Self Care: Independent Functional Cognition: Independent DME/Equipment: Bath Bench, Tub/Shower DME/Equipment Comments FWW OT Current Status Subjective Pt laying in bed, aide present. Pt agreeable to OT evaluation. Pt indicates she is planning on discharging to [facility] for a short period before returning home with . Mental Status/Objective Patient Orientation: Person, Place, Time, Situation Current Glasses/Contacts: Yes Hearing Aids: Yes Dentures/Partials: No Hand Dominance: Left Upper Extremity ROM WFL Upper Extremity Coordination WFL Upper Extremity Sensation WFL Upper Extremity Strength grossly 3+/5 ADL-Treatment Toileting Hygiene (QC): 1 Other Treatments Pt laying in bed, incontinent of BM. Pt rolled side to side with min A in order to clean up BM and change brief. Total assistance with cleaning up and donning clean tab style brief. Pt then provided information about her home set up and PLOF, as well as participate in UE screen. Pt states she feels weak and plans on going to [facility] for a period of time before returning home with her . Post OT evaluation, pt laying in bed, call light in reach and all needs met. Education OT Patient Education: Correct positioning, Modified ADL techniques, Progress toward Goal/Update tx plan, Purpose of tx/functional activities Teaching Recipient: Patient Teaching Methods: Discussion Response to Teaching: Verbalize Understanding OT Jail Goals Log Driver Goals Time Frame: Apr 16, 2020 Eating (QC): 6 Oral Hygiene (QC): 5 Toileting Hygiene (QC): 4 Shower/Bathe Self (QC): 4 Upper Body Dressing (QC): 4 Lower Body Dressing (QC): 4 On/Off Footwear (QC): 4 1=Demonstrate adherence to instructed precautions during ADL tasks. 2=Patient will verbalize/demonstrate understanding of assistive devices/modifications for ADL. 3=Patient will improve strength/tolerance for activity to enable patient to perform ADL's. OT Education/Plan Problem List/Assessment Assessment: Decreased Activ Tolerance, Decreased UE Strength, Impaired I ADL's, Impaired Self-Care Skills Discharge Recommendations Plan/Recommendations: Continue POC Treatment Plan/Plan of Care Patient would benefit from OT for education, treatment and training to promote independence in ADL's, mobility, safety and/or upper extremity function for ADL's. Plan of Care: ADL Retraining, Functional Mobility, UE Funct Exercise/Act Treatment Duration: Apr 16, 2020 Frequency: 5 times per week Estimated Hrs Per Day: .25 hour per day Rehab Potential: Fair Time/GCodes Start Time: 13:34 Stop Time: 13:43 Total Time Billed (hr/min): 9 Billed Treatment Time 1, DOYLE BLOUNT OT Apr 08, 2020 14:07
[2020-04-08] MEDS: ZOLPIDEM 5 MG (AMBIEN) TAB PO SCH (20:00)
[2020-04-09 03:47] VITALS: BP 129/70
[2020-04-09 05:50] LABS: BASOPHILS % (AUTO) 0 % (0-10); EOSINOPHILS % (AUTO) 0 % (0-10); HEMATOCRIT 31 % (35-52); HEMOGLOBIN 10.7 g/dL (11.5-16.0); LYMPHOCYTES # (AUTO) 0.6 10^3/uL (1.0-4.0); LYMPHOCYTES % (AUTO) 11 % (12-44); MEAN CORPUSCULAR HEMOGLOBIN 29 pg (25-34); MEAN CORPUSCULAR HGB CONC 35 g/dL (32-36); MEAN CORPUSCULAR VOLUME 84 fL (80-99); MEAN PLATELET VOLUME 10.2 fL (9.0-12.2); MONOCYTES # (AUTO) 0.3 10^3/uL (0.0-1.0); MONOCYTES % (AUTO) 6 % (0-12); NEUTROPHILS # (AUTO) 4.5 10^3/uL (1.8-7.8); NEUTROPHILS % (AUTO) 83 % (42-75); PLATELET COUNT 182 10^3/uL (130-400); WHITE BLOOD COUNT 5.4 10^3/uL (4.3-11.0)
[2020-04-09] MEDS: PIPERACILLIN/TAZO 4.5 GM/NS 100 ML IV SCH ×2 (06:01)
[2020-04-09] MEDS: MULTIVIT W/MINERALS TAB (THERAGRAN M) PO SCH ×2 (06:01→08:29)
[2020-04-09 06:12] LABS: ALBUMIN 2.7 GM/DL (3.2-4.5)
[2020-04-09 06:13] LABS: CHLORIDE 102 MMOL/L (98-107); POTASSIUM 3.3 MMOL/L (3.6-5.0); SODIUM 136 MMOL/L (135-145)
[2020-04-09 06:14] LABS: CALCIUM 8.1 MG/DL (8.5-10.1)
[2020-04-09 06:15] LABS: GLUCOSE 102 MG/DL (70-105); TOTAL PROTEIN 5.3 GM/DL (6.4-8.2)
[2020-04-09 06:16] LABS: CARBON DIOXIDE 24 MMOL/L (21-32)
[2020-04-09 06:17] LABS: BILIRUBIN,TOTAL 0.7 MG/DL (0.1-1.0)
[2020-04-09 06:18] LABS: ALKALINE PHOSPHATASE 42 U/L (40-136); CREATININE SERUM 0.58 MG/DL (0.60-1.30); GFR ESTIMATED > 60
[2020-04-09 06:20] LABS: BUN/CREATININE RATIO 10
[2020-04-09 06:21] LABS: ALANINE AMINOTRANSFERASE 13 U/L (0-55)
[2020-04-09] MEDS: LACTATED RINGERS 1,000 ML IV SCH (06:40)
[2020-04-09 07:45] VITALS: BP 136/81
[2020-04-09] MEDS: DORZOLAMIDE 2% 10 ML BTL (TRUSOPT) OD SCH ×2 (07:46→19:52)
[2020-04-09] MEDS: metroNIDAZOLE 250 MG (FLAGYL) TAB PO SCH ×2 (08:29→17:08)
[2020-04-09] MEDS: buPROPion 100 MG (WELLBUTRIN) TAB PO SCH (08:29)
[2020-04-09] MEDS: LACTOBACILLUS ACIDOPHILUS (PROBIOTIC) CAPSULE PO SCH ×3 (08:29→17:08)
[2020-04-09] MEDS: DICYCLOMINE 10 MG (BENTYL) CAP PO SCH ×4 (08:30→19:56)
[2020-04-09] MEDS: amLODIPine 2.5MG (NORVASC) TAB PO SCH (08:30)
[2020-04-09] MEDS: BACLOFEN 10 MG (LIORESAL) TAB PO SCH ×2 (08:30→19:55)
[2020-04-09] MEDS: PANTOPRAZOLE 20 MG TABLET (PROTONIX) PO SCH (08:30)
[2020-04-09] MEDS: clonazePAM 0.5 MG (KlonoPIN) TAB PO SCH (08:30)
[2020-04-09] MEDS: FAMOTIDINE 20 MG (PEPCID) TABLET PO SCH (08:30)
[2020-04-09] MEDS: GABAPENTIN 600 MG (NEURONTIN) TAB PO SCH ×3 (08:30→19:54)
[2020-04-09] MEDS: ASPIRIN E.C. 81 MG (ECOTRIN) TAB PO SCH ×2 (08:30→19:54)
[2020-04-09] MEDS: MYCOPHENOLIC ACID 360 MG PO SCH ×2 (08:31→19:54)
[2020-04-09] MEDS: TACROLIMUS 1 MG (PROGRAF) CAP NON-FORMULARY PO SCH ×2 (08:32→19:59)
[2020-04-09] MEDS: ASCORBIC ACID (VIT C) 500 MG TABLET PO SCH (08:34)
--- NOTE | 2020-04-09 10:28 | Physical Therapy Daily Note ---
PT Daily Note-Current Subjective Patient agrees to PT. Mental Status Patient Orientation: Person, Time, Situation Attachments: IV Transfers SCALE: Activities may be completed with or without assistive devices. 9-Hwkdeaygjr-yvdnhmi completes the activity by him/herself with no assistance from a helper. 5-Set-up or Clean-up Assistance-helper sets up or cleans up; patient completes activity. [place] assists only prior to or following the activity. 4-Supervision or Touching Assistance-helper provides verbal cues and/or touching/steadying and/or contact guard assistance as patient completes activity. Assistance may be provided throughout the activity or intermittently. 3-Partial/Moderate Assistance-helper does LESS THAN HALF the effort. [place] lifts, holds or supports trunk or limbs, but provides less than half the effort. 2-Substantial/Maximal Assistance-helper does MORE THAN HALF the effort. [place] lifts or holds trunk or limbs and provides more than half the effort. 5-Nwtltpeix-hptdcg does ALL the effort. Patient does none of the effort to complete the activity. Or, the assistance of 2 or more helpers is required for the patient to complete the activity. If activity was not attempted, code reason: 7-Patient Refused. 9-Not Applicable-not attempted and the patient did not perform the activity before the current illness, exacerbation or injury. 10-Not Attempted due to Environmental Limitations-(lack of equipment, weather restraints, etc.). 88-Not Attempted due to Medical Conditions or Safety Concerns. Roll Left & Right (QC): 3 Lying to Sitting/Side of Bed(Q: 2 Sit to Stand (QC): 3 Chair/Mrc-hw-Gkrrt Xfer(QC): 3 Toilet Transfer (QC): 3 patient incontinent urine requiring dependent assist to cleanse and change patient Gait Training Does the Patient Walk?: Yes Distance: 175' Walk 10 feet (QC): 3 Walk 50 ft with 2 Turns(QC): 3 Walk 150 ft (QC): 3 Gait Assistive Device: FWW slow, steady gait sequence Exercises Seated Therapy Exercises: Ankle pumps, Long arc quads Seated Reps: 15 Assessment Patient is up in recliner after treatment. PT to increase activity as tolerated by patient. PT Custodial Goals Technology Sales Specialist Goals PT Custodial Goals Time Frame: Apr 24, 2020 Roll Left & Right (QC): 5 Sit to Lying (QC): 5 Lying-Sitting on Side/Bed(QC): 5 Sit to Stand (QC): 5 Chair/Ypj-vl-Qflzp Xfer(QC): 5 Toilet Transfer (QC): 5 Does the Patient Walk: Yes Walk 10 feet (QC): 5 Walk 50ft with 2 Turns (QC): 5 Walk 150 ft (QC): 5 PT Plan Treatment/Plan Treatment Plan: Continue Plan of Care Treatment Plan: Bed Mobility, Education, Functional Activity Jose, Functional Strength, Gait, Safety, Therapeutic Exercise, Transfers Treatment Duration: Apr 24, 2020 Frequency: 6 times per week Estimated Hrs Per Day: .25 hour per day Patient and/or Family Agrees t: Yes Time/GCodes Time In: 845 Time Out: 908 Total Billed Treatment Time: 23 Total Billed Treatment 1 visit FA x 2 23 min SARIAH VALLADARES PT Apr 09, 2020 10:28
--- NOTE | 2020-04-09 11:15 | Occupational Ther Daily Note ---
OT Current Status-Daily Note Subjective Pt seated in recliner, agreeable to OT tx. Pt reports fatigue after being up and walking with PT this AM. ADL-Treatment Therapy Code Descriptions/Definitions Functional [place] Measure: 0=Not Assessed/NA 4=Minimal Assistance 1=Total Assistance 5=Supervision or Setup 2=Maximal Assistance 6=Modified [place] 3=Moderate Assistance 7=Complete IndependenceSCALE: Activities may be completed with or without assistive devices. 6-Pskkgkhwbe-fyculcu completes the activity by him/herself with no assistance from a helper. 5-Set-up or Clean-up Assistance-helper sets up or cleans up; patient completes activity. [place] assists only prior to or following the activity. 4-Supervision or Touching Assistance-helper provides verbal cues and/or touching/steadying and/or contact guard assistance as patient completes activity. Assistance may be provided throughout the activity or intermittently. 3-Partial/Moderate Assistance-helper does LESS THAN HALF the effort. [place] lifts, holds or supports trunk or limbs, but provides less than half the effort. 2-Substantial/Maximal Assistance-helper does MORE THAN HALF the effort. [place] lifts or holds trunk or limbs and provides more than half the effort. 6-Lnwzosgdt-vedvhn does ALL the effort. Patient does none of the effort to complete the activity. Or, the assistance of 2 or more helpers is required for the patient to complete the activity. If activity was not attempted, code reason: 7-Patient Refused. 9-Not Applicable-not attempted and the patient did not perform the activity before the current illness, exacerbation or injury. 10-Not Attempted due to Environmental Limitations-(lack of equipment, weather restraints, etc.). 88-Not Attempted due to Medical Conditions or Safety Concerns. Oral Hygiene (QC): 4 (supervision brushing teeth at recliner and tray table) Other Treatment Pt seated in recliner, agreeable to OT tx. Pt brushed teeth at recliner, given basin to rinse/spit into. Pt able to brush teeth and grab water from table to rinse mouth, required cue to sit water down and pharmacy picking tech bucket to spit, as pt was unable to lift cup and basin in 1 hand. Pt then brushed her hair with set up assistance, and washed her face with set up of warm wash cloth. Pt indicates fatigue with tasks, declining out of chair activity or further activities. Post OT tx, pt seated in recliner, call light in reach and all needs met. Education OT Patient Education: Correct positioning, Modified ADL techniques, Progress toward Goal/Update tx plan, Purpose of tx/functional activities Teaching Recipient: Patient Teaching Methods: Discussion Response to Teaching: Verbalize Understanding OT Residential Goals Residential Goals Time Frame: Apr 16, 2020 Eating (QC): 6 Oral Hygiene (QC): 5 Toileting Hygiene (QC): 4 Shower/Bathe Self (QC): 4 Upper Body Dressing (QC): 4 Lower Body Dressing (QC): 4 On/Off Footwear (QC): 4 1=Demonstrate adherence to instructed precautions during ADL tasks. 2=Patient will verbalize/demonstrate understanding of assistive devices/modifications for ADL. 3=Patient will improve strength/tolerance for activity to enable patient to perform ADL's. OT Education/Plan Problem List/Assessment Assessment: Decreased Activ Tolerance, Decreased UE Strength, Impaired I ADL's, Impaired Self-Care Skills Discharge Recommendations Plan/Recommendations: Continue POC Treatment Plan/Plan of Care Patient would benefit from OT for education, treatment and training to promote independence in ADL's, mobility, safety and/or upper extremity function for ADL's. Plan of Care: ADL Retraining, Functional Mobility, UE Funct Exercise/Act Treatment Duration: Apr 16, 2020 Frequency: 5 times per week Estimated Hrs Per Day: .25 hour per day Rehab Potential: Fair Time/GCodes Start Time: 09:24 Stop Time: 09:34 Total Time Billed (hr/min): 10 Billed Treatment Time 1, ADL DOYLE FELIX OT Apr 09, 2020 11:15
--- NOTE | 2020-04-09 12:48 | Physician Query Clarification ---
PQ-Uncertain Diagnosis Admission/Discharge Admission Date: Apr 07, 2020 at 13:00 Discharge Date: Dr. Driver, The medical record reflects the following clinical scenario: History/Risk Factors: Pneumonia Dehydration History of UTI Clinical Findings:WBC 10.6, Bands 5,Lactic acid 1.13, T 38.0, P 118, R 18, BP 129/76 Lactic acid 1.13, Blood culture-no growth. Tachypnea Treatment:IV Vancomycin HCI 1,000mg and IV Zosyn 4.5 gm. Question: Is Sepsis a clinically valid diagnosis? Sepsis was documented in the ED impression-Dr. Hopkins with no further documentation in the medical record. Please document a response in Progress Note or Discharge Summary. 1. Yes, clinically valid, condition resolved. 2. No, condition ruled out. 3. Other, with explanation of clinical findings. 4. Undetermined, no explanation for clinical findings. PHYSICIAN RESPONSE Diagnosis clinically valid: Yes, Conditon resolved Please remember a lack of response to the above will prompt a phone page by CDI/Coding staff. In responding to this query, please exercise your independent professional judgment. The purpose of this communication is to more accurately reflect the complexity of your patients condition. The fact that a question is asked does not imply that any particular answer is desired or expected. Thank you for your timely response to this clarification. Requestors name: Domi Olivarez [facility] Phone # ext [phone] or [phone] THIS PHYSICIAN QUERY FORM IS A PERMANENT PART OF THE MEDICAL RECORD DOMI OLIVAREZ Apr 09, 2020 12:48 JOSEPH DRIVER DO Apr 09, 2020 20:37
--- NOTE | 2020-04-09 12:58 | NUR ---
CM/SS follow up. CM/SS contacted [facility] to check on referral. Greta did not answer but this sw left a message on the voicemail with call back information. CM/SS attempted to contact patient's Romeo and daughter Nayeli to give an update on status. No answer. CM/SS left a voice mail for Romeo with call back information. CM/SS will continue to follow.
--- NOTE | 2020-04-09 13:50 | Progress Note - Hospitalist ---
LEMUEL FUNEZ MED STUDENT 04/09/20 1350: Subjective HPI/CC On Admission CC: Fall with weakness HPI: This is a 76yoWF clinic Pt of [facility] who I just discharged last from rehab after a stay from Inpatient Rehab after a UTI and hypokalemia with severe Parkinsons who presented to the ER after suffering a fall today, had gone to urgent care this past week and diagnosed with dehydration but no other treatment given and she became weaker and weaker. At this current time she was trying to find batteries for her cochlear implants and she was having ang rigors so she was dick-cultured urine did not show any evidence of any infection but did have a right lower lobe pneumonia. She met criteria for IV fluid resuscitation along with antibiotic and she will be admitted to med-surg. I did update her at 1500 hours and updated him on the plan and he wants her to go to [facility] upon discharge. Subjective/Events-last exam Patient sitting comfortably in her chair, minor cough noted but denies any complaints at this time including CP, palpitations, SOB, abdominal pain and bowel changes. Focused Exam Lactate Level 04/07/20 10:52: Lactic Acid Level 1.13 Time of Focused Exam: 12:47 Objective Exam Vital Signs Vital Signs Date Time Temp Pulse Resp B/P (MAP) Pulse Ox O2 Delivery O2 Flow Rate FiO2 04/09/20 08:00 Room Air 04/09/20 07:45 36.7 76 18 136/81 (99) 94 04/07/20 16:00 2.00 Capillary Refill : Less Than 3 SecondsLess Than 3 Seconds General Appearance: No Apparent Distress, WD/WN HEENT: No Scleral Icterus (L), No Scleral Icterus (R) Neck: Normal Inspection, Non Tender; No Lymphadenopathy (L), No Lymphadenopathy (R) Respiratory: Lungs Clear, No Accessory Muscle Use, No Respiratory Distress Cardiovascular: Regular Rate, Rhythm, Normal Peripheral Pulses Gastrointestinal: No Organomegaly, No Pulsatile Mass, Non Tender Extremity: Normal Inspection, Non Tender, No Calf Tenderness Neurologic/Psychiatric: Alert, Oriented x3, Normal Mood/Affect Skin: Normal Color, Warm/Dry Results/Procedures Lab Laboratory Tests 04/09/20 05:35 Patient resulted labs reviewed. Assessment/Plan Assessment and Plan Assess & Plan/Chief Complaint Pneumonia - descalating abx - cxr showed no signs of pneumonia - Continue incentive spirometry Recurrent falls - POC treatment with PT/OT Dehydrated - Continue IVF other management -suppliment with ensure -restart home medications -monitor BP Chronic -parkinsons -HTN -Afib -valvular heart disease -renal failure -DDD -Arthritis -cataracts -anxiety -Depression -hard of hearing w/hearing aid (L ear) Clinical Quality Measures DVT/VTE Risk/Contraindication: Risk Factor Score Per Nursin RFS Level Per Nursing on Admit: 4+=Very High CHAYA DRIVER DO 04/09/202126: Subjective HPI/CC On Admission Date Seen by Provider: Apr 09, 2020 Time Seen by Provider: 11:00 Subjective/Events-last exam Pt awaiting longterm placement Switching broad spectrum antibiotics IV to Omnicef twice daily maintained on Flagyl twice daily along with probiotic to prevent C-diff colitis Participating in therapy Review of Systems General: Fatigue Neurological: Weakness Objective Exam General Appearance: No Apparent Distress, WD/WN, Chronically ill Cardiovascular: Regular Rate, Rhythm Assessment/Plan Assessment and Plan Assess & Plan/Chief Complaint Change abx to PO Prevent c diff NH Sunday Supervisory-Addendum Brief Verification & Attestation Participated in pt care: history, MDM, physical Personally performed: exam, history, MDM, supervision of care Care discussed with: Medical Student Procedures: n/a Results interpretation: Verified all documentation Verification and Attestation of Medical Student E/M Service A medical student performed and documented this service in my presence. I reviewed and verified all information documented by the medical student and made modifications to such information, when appropriate. I personally performed the physical exam and medical decision making. Chaya Driver, Apr 09, 2020,21:27 LEMUEL FUNEZ MED STUDENT Apr 09, 2020 13:50 CHAYA DRIVER DO Apr 09, 2020 21:27
--- NOTE | 2020-04-09 15:36 | NUR ---
provided prayer and Communion.
[2020-04-09 15:55] VITALS: BP 147/62
[2020-04-09] MEDS: ZOLPIDEM 5 MG (AMBIEN) TAB PO SCH (19:54)
[2020-04-09] MEDS: CEFDINIR 300 MG (OMNICEF) CAP PO SCH (19:56)
[2020-04-10 00:26] VITALS: BP 119/58
[2020-04-10 06:28] LABS: BASOPHILS % (AUTO) 0 % (0-10); EOSINOPHILS # (AUTO) 0.1 10^3/uL (0.0-0.3); EOSINOPHILS % (AUTO) 2 % (0-10); HEMATOCRIT 34 % (35-52); HEMOGLOBIN 11.5 g/dL (11.5-16.0); LYMPHOCYTES # (AUTO) 0.6 10^3/uL (1.0-4.0); LYMPHOCYTES % (AUTO) 13 % (12-44); MEAN CORPUSCULAR HEMOGLOBIN 29 pg (25-34); MEAN CORPUSCULAR HGB CONC 34 g/dL (32-36); MEAN CORPUSCULAR VOLUME 85 fL (80-99); MEAN PLATELET VOLUME 10.3 fL (9.0-12.2); MONOCYTES # (AUTO) 0.3 10^3/uL (0.0-1.0); MONOCYTES % (AUTO) 6 % (0-12); NEUTROPHILS % (AUTO) 79 % (42-75); PLATELET COUNT 208 10^3/uL (130-400); WHITE BLOOD COUNT 5.1 10^3/uL (4.3-11.0)
[2020-04-10 06:53] LABS: ALBUMIN 2.9 GM/DL (3.2-4.5); CHLORIDE 104 MMOL/L (98-107); POTASSIUM 3.2 MMOL/L (3.6-5.0); SODIUM 140 MMOL/L (135-145)
[2020-04-10] MEDS: MULTIVIT W/MINERALS TAB (THERAGRAN M) PO SCH (06:53)
[2020-04-10 06:54] LABS: CALCIUM 8.4 MG/DL (8.5-10.1)
[2020-04-10 06:56] LABS: GLUCOSE 101 MG/DL (70-105); TOTAL PROTEIN 5.7 GM/DL (6.4-8.2)
[2020-04-10 06:57] LABS: BILIRUBIN,TOTAL 0.5 MG/DL (0.1-1.0); CARBON DIOXIDE 27 MMOL/L (21-32)
[2020-04-10 06:59] LABS: ALKALINE PHOSPHATASE 46 U/L (40-136)
[2020-04-10 07:00] LABS: CREATININE SERUM 0.58 MG/DL (0.60-1.30); GFR ESTIMATED > 60
[2020-04-10 07:01] LABS: BUN/CREATININE RATIO 12
[2020-04-10 07:02] LABS: ALANINE AMINOTRANSFERASE 13 U/L (0-55)
[2020-04-10 07:45] VITALS: BP 140/66
[2020-04-10] MEDS: LACTOBACILLUS ACIDOPHILUS (PROBIOTIC) CAPSULE PO SCH ×3 (09:30→17:53)
[2020-04-10] MEDS: CEFDINIR 300 MG (OMNICEF) CAP PO SCH (09:30)
[2020-04-10] MEDS: buPROPion 100 MG (WELLBUTRIN) TAB PO SCH (09:30)
[2020-04-10] MEDS: DICYCLOMINE 10 MG (BENTYL) CAP PO SCH ×4 (09:30→21:03)
[2020-04-10] MEDS: GABAPENTIN 600 MG (NEURONTIN) TAB PO SCH ×3 (09:30→21:05)
[2020-04-10] MEDS: metroNIDAZOLE 250 MG (FLAGYL) TAB PO SCH ×2 (09:31→17:53)
[2020-04-10] MEDS: PANTOPRAZOLE 20 MG TABLET (PROTONIX) PO SCH (09:31)
[2020-04-10] MEDS: clonazePAM 0.5 MG (KlonoPIN) TAB PO SCH (09:31)
[2020-04-10] MEDS: amLODIPine 2.5MG (NORVASC) TAB PO SCH (09:32)
[2020-04-10] MEDS: TACROLIMUS 1 MG (PROGRAF) CAP NON-FORMULARY PO SCH ×2 (09:32→21:07)
[2020-04-10] MEDS: FAMOTIDINE 20 MG (PEPCID) TABLET PO SCH (09:32)
[2020-04-10] MEDS: BACLOFEN 10 MG (LIORESAL) TAB PO SCH ×2 (09:33→21:04)
[2020-04-10] MEDS: ASPIRIN E.C. 81 MG (ECOTRIN) TAB PO SCH ×2 (09:34→21:04)
[2020-04-10] MEDS: MYCOPHENOLIC ACID 360 MG PO SCH ×2 (09:36→21:06)
[2020-04-10] MEDS: ASCORBIC ACID (VIT C) 500 MG TABLET PO SCH (09:37)
[2020-04-10] MEDS: DORZOLAMIDE 2% 10 ML BTL (TRUSOPT) OD SCH ×2 (09:39→21:10)
--- NOTE | 2020-04-10 10:25 | Progress Note - Hospitalist ---
Subjective HPI/CC On Admission Date Seen by Provider: Apr 10, 2020 Time Seen by Provider: 09:10 CC: Fall with weakness HPI: This is a 76yoWF clinic Pt of [facility] who I just discharged last from rehab after a stay from Inpatient Rehab after a UTI and hypokalemia with severe Parkinsons who presented to the ER after suffering a fall today, had gone to urgent care this past week and diagnosed with dehydration but no other treatment given and she became weaker and weaker. At this current time she was trying to find batteries for her cochlear implants and she was having ang rigors so she was dick-cultured urine did not show any evidence of any infection but did have a right lower lobe pneumonia. She met criteria for IV fluid resuscitation along with antibiotic and she will be admitted to med-surg. I did update her at 1500 hours and updated him on the plan and he wants her to go to [facility] upon discharge. Subjective/Events-last exam patient is very tearful this morning. She is sad that she has to go to a longterm. she is determined that she can get better and go home. Review of Systems Neurological: Weakness Focused Exam Lactate Level Time of Focused Exam: 12:47 Objective Exam Vital Signs Vital Signs Date Time Temp Pulse Resp B/P (MAP) Pulse Ox O2 Delivery O2 Flow Rate FiO2 04/10/20 15:43 36.2 77 18 102/51 (68) 95 Room Air 04/07/20 16:00 2.00 Capillary Refill : Less Than 3 SecondsLess Than 3 Seconds General Appearance: No Apparent Distress, WD/WN HEENT: Normal ENT Inspection Neck: Limited Range of Motion Respiratory: Lungs Clear, Normal Breath Sounds, No Accessory Muscle Use, No Respiratory Distress Cardiovascular: Regular Rate, Rhythm, No Gallop, No Murmur Gastrointestinal: Normal Bowel Sounds, No Organomegaly, Non Tender, Soft Rectal: Deferred Back: Normal Inspection Extremity: No Pedal Edema, Other (no dorsiflexion) Neurologic/Psychiatric: Alert, Oriented x3, Depressed Affect Skin: Pallor Results/Procedures Lab Laboratory Tests 04/10/20 05:35 Patient resulted labs reviewed. Imaging: Reviewed Imaging Report Assessment/Plan Assessment and Plan Assess & Plan/Chief Complaint Assessment: RLL PNA considered HAP since just DC IRF-however white count has remained normal, chest x-ray shows no infiltrate, and since the patient has a history of C. difficile will DC IV antibiotics Fall-PT Parkinson's disease-with very poor mobility Falls frequently Renal transplant status h/o C diff colitis life threatening type-having some diarrhea on prophylactic Flagyl Hypokalemia-replaced Protein calorie malnutrition Situational depression Clinical Quality Measures DVT/VTE Risk/Contraindication: Risk Factor Score Per Nursin RFS Level Per Nursing on Admit: 4+=Very High MELINA DUMONT MD Apr 10, 2020 10:25
--- NOTE | 2020-04-10 12:18 | Physical Therapy Daily Note ---
PT Daily Note-Current Subjective Pt sitting up in chair upon arrival to room, agreeable to therapy treatment. pt with no c/o pain Appearance Following session, pt up in chair with call light and tray within reach, all needs met at this time Mental Status Patient Orientation: Person, Place, Situation Transfers SCALE: Activities may be completed with or without assistive devices. 5-Fsinwtlhmp-ahzarad completes the activity by him/herself with no assistance from a helper. 5-Set-up or Clean-up Assistance-helper sets up or cleans up; patient completes activity. [place] assists only prior to or following the activity. 4-Supervision or Touching Assistance-helper provides verbal cues and/or touching/steadying and/or contact guard assistance as patient completes acti vity. Assistance may be provided throughout the activity or intermittently. 3-Partial/Moderate Assistance-helper does LESS THAN HALF the effort. [place] lifts, holds or supports trunk or limbs, but provides less than half the effort. 2-Substantial/Maximal Assistance-helper does MORE THAN HALF the effort. [place] lifts or holds trunk or limbs and provides more than half the effort. 6-Ncvngbcfh-vrnylz does ALL the effort. Patient does none of the effort to complete the activity. Or, the assistance of 2 or more helpers is required for the patient to complete the activity. If activity was not attempted, code reason: 7-Patient Refused. 9-Not Applicable-not attempted and the patient did not perform the activity before the current illness, exacerbation or injury. 10-Not Attempted due to Environmental Limitations-(lack of equipment, weather restraints, etc.). 88-Not Attempted due to Medical Conditions or Safety Concerns. Sit to Stand (QC): 4 Gait Training Distance: 150' Walk 10 feet (QC): 4 Walk 50 ft with 2 Turns(QC): 4 Walk 150 ft (QC): 4 Gait Assistive Device: FWW GCA for safety. Pt with small, shuffling steps and kyphotic posture throughout gait cycle Exercises Seated Therapy Exercises: Ankle pumps, Long arc quads, Hip flexion Assessment Current Status: Good Progress Will continue to progress pt activity tolerance as able PT Long-Term Goals Drapery Hemmer Automatic Goals PT Long-Term Goals Time Frame: Apr 24, 2020 Roll Left & Right (QC): 5 Sit to Lying (QC): 5 Lying-Sitting on Side/Bed(QC): 5 Sit to Stand (QC): 5 Chair/Mhh-lp-Hihzu Xfer(QC): 5 Toilet Transfer (QC): 5 Does the Patient Walk: Yes Walk 10 feet (QC): 5 Walk 50ft with 2 Turns (QC): 5 Walk 150 ft (QC): 5 PT Plan Problem List Problem List: Activity Tolerance, Functional Strength, Safety, Balance, Gait, Transfer, Bed Mobility, ROM Treatment/Plan Treatment Plan: Continue Plan of Care Treatment Plan: Bed Mobility, Education, Functional Activity Jose, Functional Strength, Gait, Safety, Therapeutic Exercise, Transfers Treatment Duration: Apr 24, 2020 Frequency: 6 times per week Estimated Hrs Per Day: .25 hour per day Patient and/or Family Agrees t: Yes Time/GCodes Time In: 1135 Time Out: 1145 Total Billed Treatment Time: 10 Total Billed Treatment 1 visit GT (10') KASSANDRA STOCK PT Apr 10, 2020 12:18
[2020-04-10] MEDS: KCL 10 MEQ TAB (MICRO K) PO SCH (12:25)
[2020-04-10 15:43] VITALS: BP 102/51
[2020-04-10] MEDS: LOPERAMIDE 2 MG (IMODIUM) TABLET PO PRN (18:36)
[2020-04-10] MEDS: ZOLPIDEM 5 MG (AMBIEN) TAB PO SCH (21:03)
[2020-04-11 00:51] VITALS: BP 111/57
[2020-04-11] MEDS: MULTIVIT W/MINERALS TAB (THERAGRAN M) PO SCH (06:33)
[2020-04-11] MEDS: KCL 10 MEQ TAB (MICRO K) PO SCH (06:33)
[2020-04-11 08:00] VITALS: BP 141/66
[2020-04-11] MEDS: LACTOBACILLUS ACIDOPHILUS (PROBIOTIC) CAPSULE PO SCH ×3 (08:58→18:20)
[2020-04-11] MEDS: metroNIDAZOLE 250 MG (FLAGYL) TAB PO SCH ×2 (08:58→18:20)
[2020-04-11] MEDS: DORZOLAMIDE 2% 10 ML BTL (TRUSOPT) OD SCH ×2 (08:59→21:19)
[2020-04-11] MEDS: MYCOPHENOLIC ACID 360 MG PO SCH ×2 (09:00→21:18)
[2020-04-11] MEDS: TACROLIMUS 1 MG (PROGRAF) CAP NON-FORMULARY PO SCH ×2 (09:00→21:19)
[2020-04-11 09:50] LABS: BASOPHILS % (AUTO) 1 % (0-10); EOSINOPHILS # (AUTO) 0.1 10^3/uL (0.0-0.3); EOSINOPHILS % (AUTO) 1 % (0-10); HEMATOCRIT 34 % (35-52); HEMOGLOBIN 11.6 g/dL (11.5-16.0); LYMPHOCYTES # (AUTO) 0.7 10^3/uL (1.0-4.0); LYMPHOCYTES % (AUTO) 12 % (12-44); MEAN CORPUSCULAR HEMOGLOBIN 29 pg (25-34); MEAN CORPUSCULAR HGB CONC 34 g/dL (32-36); MEAN CORPUSCULAR VOLUME 85 fL (80-99); MEAN PLATELET VOLUME 10.2 fL (9.0-12.2); MONOCYTES # (AUTO) 0.3 10^3/uL (0.0-1.0); MONOCYTES % (AUTO) 5 % (0-12); NEUTROPHILS # (AUTO) 4.7 10^3/uL (1.8-7.8); NEUTROPHILS % (AUTO) 81 % (42-75); PLATELET COUNT 240 10^3/uL (130-400); WHITE BLOOD COUNT 5.8 10^3/uL (4.3-11.0)
[2020-04-11 10:02] LABS: ALBUMIN 3.1 GM/DL (3.2-4.5)
[2020-04-11 10:03] LABS: CHLORIDE 104 MMOL/L (98-107); POTASSIUM 3.7 MMOL/L (3.6-5.0); SODIUM 139 MMOL/L (135-145)
[2020-04-11 10:04] LABS: CALCIUM 8.6 MG/DL (8.5-10.1)
[2020-04-11 10:05] LABS: GLUCOSE 116 MG/DL (70-105)
[2020-04-11 10:06] LABS: CARBON DIOXIDE 25 MMOL/L (21-32)
[2020-04-11 10:07] LABS: BILIRUBIN,TOTAL 0.5 MG/DL (0.1-1.0)
[2020-04-11 10:08] LABS: ALKALINE PHOSPHATASE 58 U/L (40-136)
[2020-04-11 10:09] LABS: CREATININE SERUM 0.65 MG/DL (0.60-1.30); GFR ESTIMATED > 60
[2020-04-11 10:10] LABS: BUN/CREATININE RATIO 14
[2020-04-11 10:12] LABS: ALANINE AMINOTRANSFERASE 13 U/L (0-55); MAGNESIUM 1.3 MG/DL (1.6-2.4)
[2020-04-11] MEDS: PANTOPRAZOLE 20 MG TABLET (PROTONIX) PO SCH (10:12)
[2020-04-11] MEDS: GABAPENTIN 600 MG (NEURONTIN) TAB PO SCH ×3 (10:12→21:17)
[2020-04-11] MEDS: ASPIRIN E.C. 81 MG (ECOTRIN) TAB PO SCH ×2 (10:12→21:16)
[2020-04-11] MEDS: clonazePAM 0.5 MG (KlonoPIN) TAB PO SCH (10:12)
[2020-04-11] MEDS: amLODIPine 2.5MG (NORVASC) TAB PO SCH (10:13)
[2020-04-11] MEDS: BACLOFEN 10 MG (LIORESAL) TAB PO SCH ×2 (10:13→21:17)
[2020-04-11] MEDS: DICYCLOMINE 10 MG (BENTYL) CAP PO SCH ×4 (10:14→21:17)
[2020-04-11] MEDS: ASCORBIC ACID (VIT C) 500 MG TABLET PO SCH (10:14)
[2020-04-11] MEDS: buPROPion 100 MG (WELLBUTRIN) TAB PO SCH (10:14)
[2020-04-11] MEDS: FAMOTIDINE 20 MG (PEPCID) TABLET PO SCH (10:14)
--- NOTE | 2020-04-11 10:45 | NUR ---
Spoke with patients regarding the patients status. Informed him that we stopped IV antibiotics as the patients WBC count is normal and we do not want to risk her getting C difficile. Informed him she is receiving oral Flagyl at this time as primary prevention. Notified that her chest xray showed no infiltrates which is a good sign the infection has passed. Informed him I would contact him later tonight to update him on patient status.
--- NOTE | 2020-04-11 10:50 | Progress Note - Hospitalist ---
Subjective HPI/CC On Admission Date Seen by Provider: Apr 11, 2020 Time Seen by Provider: 10:00 CC: Fall with weakness HPI: This is a 76yoWF clinic Pt of [facility] who I just discharged last from rehab after a stay from Inpatient Rehab after a UTI and hypokalemia with severe Parkinsons who presented to the ER after suffering a fall today, had gone to urgent care this past week and diagnosed with dehydration but no other treatment given and she became weaker and weaker. At this current time she was trying to find batteries for her cochlear implants and she was having ang rigors so she was dick-cultured urine did not show any evidence of any infection but did have a right lower lobe pneumonia. She met criteria for IV fluid resuscitation along with antibiotic and she will be admitted to med-surg. I did update her at 1500 hours and updated him on the plan and he wants her to go to [facility] upon discharge. Subjective/Events-last exam patient is less tearful today, is not looking forward to going to the custodial Review of Systems Neurological: Weakness Focused Exam Time of Focused Exam: 12:47 Objective Exam Vital Signs Vital Signs Date Time Temp Pulse Resp B/P (MAP) Pulse Ox O2 Delivery O2 Flow Rate FiO2 04/11/20 08:00 36.6 81 20 141/66 (91) 95 Room Air 04/07/20 16:00 2.00 Capillary Refill : Less Than 3 SecondsLess Than 3 Seconds General Appearance: Chronically ill Neck: Limited Range of Motion Respiratory: Lungs Clear, Normal Breath Sounds, No Accessory Muscle Use, No Respiratory Distress Cardiovascular: Regular Rate, Rhythm, No Gallop, Systolic Murmur Gastrointestinal: Normal Bowel Sounds, Soft Rectal: Deferred Neurologic/Psychiatric: Other (resting tremor) Skin: Pallor Results/Procedures Lab Laboratory Tests 04/11/20 09:29 Patient resulted labs reviewed. Imaging: Reviewed Imaging Report Assessment/Plan Assessment and Plan Assess & Plan/Chief Complaint Assessment: RLL PNA considered HAP since just DC IRF-however white count has remained normal, chest x-ray shows no infiltrate, and since the patient has a history of C. difficile will DC IV antibiotics-patient continues to be afebrile Falls-PT/OT secondary to Parkinson's Parkinson's disease-with very poor mobility-custodial placement in the [facility] h/o C diff colitis life threatening type-having some diarrhea on prophylactic Flagyl Hypokalemia-resolved Protein calorie malnutrition Situational depression Clinical Quality Measures DVT/VTE Risk/Contraindication: Risk Factor Score Per Nursin RFS Level Per Nursing on Admit: 4+=Very High MELINA DUMONT MD Apr 11, 2020 10:50
[2020-04-11 15:56] VITALS: BP 130/60
[2020-04-11] MEDS: LOPERAMIDE 2 MG (IMODIUM) TABLET PO PRN (21:17)
[2020-04-11] MEDS: ZOLPIDEM 5 MG (AMBIEN) TAB PO SCH (21:17)
[2020-04-12 00:28] VITALS: BP 111/58
[2020-04-12] MEDS: KCL 10 MEQ TAB (MICRO K) PO SCH (06:42)
[2020-04-12] MEDS: MULTIVIT W/MINERALS TAB (THERAGRAN M) PO SCH (06:43)
[2020-04-12 08:00] VITALS: BP 143/67
[2020-04-12] MEDS: buPROPion 100 MG (WELLBUTRIN) TAB PO SCH (08:29)
[2020-04-12] MEDS: FAMOTIDINE 20 MG (PEPCID) TABLET PO SCH (08:29)
[2020-04-12] MEDS: PANTOPRAZOLE 20 MG TABLET (PROTONIX) PO SCH (08:29)
[2020-04-12] MEDS: LACTOBACILLUS ACIDOPHILUS (PROBIOTIC) CAPSULE PO SCH ×2 (08:29→12:44)
[2020-04-12] MEDS: BACLOFEN 10 MG (LIORESAL) TAB PO SCH (08:30)
[2020-04-12] MEDS: DICYCLOMINE 10 MG (BENTYL) CAP PO SCH ×2 (08:30→12:44)
[2020-04-12] MEDS: ASPIRIN E.C. 81 MG (ECOTRIN) TAB PO SCH (08:32)
[2020-04-12] MEDS: metroNIDAZOLE 250 MG (FLAGYL) TAB PO SCH (08:32)
[2020-04-12] MEDS: ASCORBIC ACID (VIT C) 500 MG TABLET PO SCH (08:32)
[2020-04-12] MEDS: clonazePAM 0.5 MG (KlonoPIN) TAB PO SCH (08:34)
[2020-04-12] MEDS: GABAPENTIN 600 MG (NEURONTIN) TAB PO SCH ×2 (08:35→12:43)
[2020-04-12] MEDS: MYCOPHENOLIC ACID 360 MG PO SCH (08:37)
[2020-04-12] MEDS: TACROLIMUS 1 MG (PROGRAF) CAP NON-FORMULARY PO SCH (08:37)
[2020-04-12] MEDS: amLODIPine 2.5MG (NORVASC) TAB PO SCH (08:44)
[2020-04-12] MEDS: LOPERAMIDE 2 MG (IMODIUM) TABLET PO PRN (08:44)
[2020-04-12] MEDS: DORZOLAMIDE 2% 10 ML BTL (TRUSOPT) OD SCH (08:45)
--- NOTE | 2020-04-12 10:23 | Physical Therapy Daily Note ---
PT Daily Note-Current Subjective Patient up in recliner per nursing staff due to incontinence and requiring a bath. Patient agrees to PT. Mental Status Patient Orientation: Person, Time Transfers SCALE: Activities may be completed with or without assistive devices. 6-Hvfzxrwspb-shcaawg completes the activity by him/herself with no assistance from a helper. 5-Set-up or Clean-up Assistance-helper sets up or cleans up; patient completes activity. [place] assists only prior to or following the activity. 4-Supervision or Touching Assistance-helper provides verbal cues and/or touching/steadying and/or contact guard assistance as patient completes activity. Assistance may be provided throughout the activity or intermittently. 3-Partial/Moderate Assistance-helper does LESS THAN HALF the effort. [place] lifts, holds or supports trunk or limbs, but provides less than half the effort. 2-Substantial/Maximal Assistance-helper does MORE THAN HALF the effort. [place] lifts or holds trunk or limbs and provides more than half the effort. 9-Antlmhgfj-kugwrm does ALL the effort. Patient does none of the effort to complete the activity. Or, the assistance of 2 or more helpers is required for the patient to complete the activity. If activity was not attempted, code reason: 7-Patient Refused. 9-Not Applicable-not attempted and the patient did not perform the activity before the current illness, exacerbation or injury. 10-Not Attempted due to Environmental Limitations-(lack of equipment, weather restraints, etc.). 88-Not Attempted due to Medical Conditions or Safety Concerns. Sit to Stand (QC): 3 min assist with sit to stand Gait Training Does the Patient Walk?: Yes Distance: 125' Walk 10 feet (QC): 3 Walk 50 ft with 2 Turns(QC): 3 Gait Assistive Device: FWW NBOS/shuffle gait sequence/trunk flexed posture Exercises Seated Therapy Exercises: Ankle pumps, Long arc quads, Hip flexion Seated Reps: 15 Assessment Patient tolerated treatment well and remains up in recliner. Patient appears depressed. PT Automotive Internet Sales Consultant Goals Halfway Goals PT Automotive Internet Sales Consultant Goals Time Frame: Apr 24, 2020 Roll Left & Right (QC): 5 Sit to Lying (QC): 5 Lying-Sitting on Side/Bed(QC): 5 Sit to Stand (QC): 5 Chair/Ttt-se-Zcboz Xfer(QC): 5 Toilet Transfer (QC): 5 Does the Patient Walk: Yes Walk 10 feet (QC): 5 Walk 50ft with 2 Turns (QC): 5 Walk 150 ft (QC): 5 PT Plan Treatment/Plan Treatment Plan: Continue Plan of Care Treatment Plan: Bed Mobility, Education, Functional Activity Jose, Functional Strength, Gait, Safety, Therapeutic Exercise, Transfers Treatment Duration: Apr 24, 2020 Frequency: 6 times per week Estimated Hrs Per Day: .25 hour per day Patient and/or Family Agrees t: Yes Time/GCodes Time In: 936 Time Out: 950 Total Billed Treatment Time: 14 Total Billed Treatment 1 visit FA 14 min SARIAH VALLADARES PT Apr 12, 2020 10:23
--- NOTE | 2020-04-12 11:09 | Discharge Summary ---
Discharge Summary Reconcile Patient Problems Problems Reviewed?: Yes Hospital Course Hospital Course Date of Admission: Apr 07, 2020 at 13:00 Admission Diagnosis : Family Physician/Provider: Rosas Caban Aprn Date of Discharge: 04/12/20 Discharge Diagnosis: Falls Severe Debility Parkinson's Disease Moderate Protein Energy Malnutrition Depression Hospital Course: 70 yo F with recent discharge for IRF who returned home and suffered a fall. Patient is high fall risk given her Parkinson's disease. Patient started having diarrhea and has a h/o Severe C diff and was started on ppx Flagyl. Patient has agreed and would like to go to SNF upon discharge. Labs and Pending Lab Test: Microbiology 04/07/20 Blood Culture - Preliminary, Resulted No growth 04/07/20 Urine Culture - Final, Complete NO GROWTH 04/07/20 Influenza Types A,B Antigen (IRENE) - Final, Complete Home Meds Active Reported Zolpidem Tartrate 5 Mg Tablet 5 Mg PO HS Ondansetron Odt (Ondansetron) 4 Mg Tab.rapdis 4 Mg PO Q6H PRN Restasis (Cyclosporine) 1 Each Droperette 1 Each OD BID Livalo (Pitavastatin Calcium) 1 Mg Tablet 1 Mg PO DAILY Prevacid 24Hr (Lansoprazole) 15 Mg Capsule.dr 15 Mg PO DAILY Dicyclomine HCl 20 Mg Tablet 10 Mg PO QID TAKES 1/2 OF A 20MG TAB Bupropion HCl 100 Mg Tablet 100 Mg PO DAILY Gabapentin 600 Mg Tablet 600 Mg PO TID Amlodipine Besylate 2.5 Mg Tablet 2.5 Mg PO DAILY Aripiprazole 5 Mg Tablet 5 Mg PO HS Alosetron HCl 1 Mg Tablet 1 Mg PO BID Nephro-Rodrick Tablet (Folic Acid/Vitamin B Comp W-C) 0.8 Mg Tablet 0.8 Mg PO DAILY Mycophenolic Acid (Mycophenolate Sodium) 360 Mg Tablet.dr 360 Mg PO BID Flonase Allergy Relief (Fluticasone Propionate) 9.9 Ml [place].susp 2 [place] NS DAILY PRN Baclofen 10 Mg Tablet 5 Mg PO BID TAKES 1/2 OF A 10MG TAB Clonazepam 0.5 Mg Tablet 0.25 Mg PO DAILY TAKES 1/2 OF A 0.5MG TAB Acid Tie Bucker (FAMOTIDINE) (Famotidine) 20 Mg Tablet 20 Mg PO DAILY Azopt (Brinzolamide) 10 Ml Btl 1 Drop OD BID Cranberry (Cranberry Fruit Concentrate) 450 Mg Capsule 450 Mg PO BID Vitamin C (Ascorbate Calcium) 500 Mg Tablet 500 Mg PO DAILY Adult Low Dose Aspirin EC (Aspirin) 81 Mg Tablet.dr 81 Mg PO BID Prograf (Tacrolimus) 1 Mg Capsule 1 Mg PO BID Probiotic (L.acidoph & Paracasei,B.lactis) 1 Each Capsule 1 Cap PO DAILY Imodium Multi-Symptom Rel Cplt (Loperamide HCl/Simethicone) 1 Each Tablet 1 Tab PO DAILY PRN Instructions to Patient/Family Assessment/Instructions - Continue to work on strength and mobility Skilled NF Admit to: [facility] Certification (SNF) I certify that SNF services are required to be given on an inpatient basis because of the above named patient's need for custodial care on a continuing basis for the conditions(s) for which he/she was receiving inpatient hospital services prior to his/her transfer to the SNF. [facility] Facility Order: Nursing Services, Etymology Professor-Evaluate & Treat, Physical Therapy-Evaluate & Treat Oxygen Delivery Method: Room Air Discharge Diet: No Restrictions Daily Activity as Tolerated: Yes Erin Suggs Apr 12, 2020 11:02 Discharge Physical Exam General: Alert, Oriented X3, Cooperative, No Acute Distress HEENT: Mucous Memb Moist/[place] Lungs: Clear to Auscultation, Normal Air Movement Heart: Regular Rate, No Murmurs Abdomen: Normal Bowel Sounds, Soft, No Tenderness, No Masses Extremities: No Edema, No Tenderness/Swelling Skin: No Rashes, No Breakdown Neuro: Strength at 5/5 X4 Ext, Sensation Intact, Cranial Nerves 3-12 NL Psych/Mental Status: Mental Status NL, Mood NL ERIN SUGGS MD Apr 12, 2020 11:07
[2020-04-12] MEDS ORDERED: METR-143 PO (11:12)
--- NOTE | 2020-04-12 11:53 | Occupational Ther Daily Note ---
OT Current Status-Daily Note Subjective Pt sleeping in recliner, woke to shaking pt's foot. Pt agrees to therapy. No c/o pain only fatigue. Mental Status/Objective Patient Orientation: Person, Place, Time, Situation ADL-Treatment Pt having difficulty with managing FWW with transfers, verbal and physical cues. Pt completed toilet hygiene sitting on toilet and assist to hike pants up/down over hips. Min A for toilet transfers. Pt sat at sink to complete own oral care. Therapy Code Descriptions/Definitions Functional [place] Measure: 0=Not Assessed/NA 4=Minimal Assistance 1=Total Assistance 5=Supervision or Setup 2=Maximal Assistance 6=Modified [place] 3=Moderate Assistance 7=Complete IndependenceSCALE: Activities may be completed with or without assistive devices. 6-Xnmxwrrzdc-ikoytnb completes the activity by him/herself with no assistance from a helper. 5-Set-up or Clean-up Assistance-helper sets up or cleans up; patient completes activity. [place] assists only prior to or following the activity. 4-Supervision or Touching Assistance-helper provides verbal cues and/or touching/steadying and/or contact guard assistance as patient completes activity. Assistance may be provided throughout the activity or intermittently. 3-Partial/Moderate Assistance-helper does LESS THAN HALF the effort. [place] lifts, holds or supports trunk or limbs, but provides less than half the effort. 2-Substantial/Maximal Assistance-helper does MORE THAN HALF the effort. [place] lifts or holds trunk or limbs and provides more than half the effort. 3-Geevhqwhy-aqggix does ALL the effort. Patient does none of the effort to complete the activity. Or, the assistance of 2 or more helpers is required for the patient to complete the activity. If activity was not attempted, code reason: 7-Patient Refused. 9-Not Applicable-not attempted and the patient did not perform the activity before the current illness, exacerbation or injury. 10-Not Attempted due to Environmental Limitations-(lack of equipment, weather restraints, etc.). 88-Not Attempted due to Medical Conditions or Safety Concerns. Oral Hygiene (QC): 6 Toileting Hygiene (QC): 3 Toilet Transfer (QC): 3 Other Treatment Pt able to complete 3 UE exercises against gravity 2 sets 10 reps to increase strength and activity tolerance. After session, pt sitting in recliner with call light/phone in reach. All needs met in room. OT Fdc Goals Broadcast Operations Engineer Goals Time Frame: Apr 16, 2020 Eating (QC): 6 Oral Hygiene (QC): 5 Toileting Hygiene (QC): 4 Shower/Bathe Self (QC): 4 Upper Body Dressing (QC): 4 Lower Body Dressing (QC): 4 On/Off Footwear (QC): 4 1=Demonstrate adherence to instructed precautions during ADL tasks. 2=Patient will verbalize/demonstrate understanding of assistive devices/modifications for ADL. 3=Patient will improve strength/tolerance for activity to enable patient to perform ADL's. OT Education/Plan Problem List/Assessment Assessment: Decreased Activ Tolerance, Decreased UE Strength, Impaired Self- Care Skills Discharge Recommendations Plan/Recommendations: Continue POC Treatment Plan/Plan of Care Patient would benefit from OT for education, treatment and training to promote independence in ADL's, mobility, safety and/or upper extremity function for ADL's. Plan of Care: ADL Retraining, Functional Mobility, UE Funct Exercise/Act Treatment Duration: Apr 16, 2020 Frequency: 5 times per week Estimated Hrs Per Day: .25 hour per day Rehab Potential: Fair Time/GCodes Start Time: 11:00 Stop Time: 11:26 Total Time Billed (hr/min): 26 Billed Treatment Time 1 visit-EX 1 (8 min) ADL 1 (18 min) VIRAJ VELIZ Apr 12, 2020 11:53
--- NOTE | 2020-04-12 12:28 | NUR ---
CM/SS finalized discharge. Plan: The patient will discharge to [facility] today with a picket labor union time of 1:30 p.m. on 04/12. CM/SS visited with patient. She is still on board with going to a facility. No questions of concerns at this time. CM/SS contacted Greta from Facility once discharge orders were present. A picket labor union time was set. CM/SS informed the patient's primary care nurse of discharge plans. Cm/SS faxed discharge orders. CM/SS contacted the patient's Romeo to inform him of discharge and picket labor union time. He verbalized understanding. No further needs at this time.
--- NOTE | 2020-04-12 13:22 | NUR ---
GISELA TURCIOS discharged to [facility]. Facility notified of discharge and report given to Ivory Sandoval. GISELA TURCIOS belongings sent with patient and staff. Skin dry and intact; no breakdown noted. Vital signs are stable at time of discharge. Condition is stable at time of discharge. Discharge instructions and copies of H&P, discharge summary, physician's order, lab reports, consultation reports, other dictated reports, diagnostic imaging reports, Advance Directive, eMAR, vital signs, intake and output sent with patient. Patient discharged from [facility] on 04/12/2020 at 1322 . GISELA TURCIOS left floor via wheelchair, accompanied by staff. GISELA TURCIOS and family/DPOA notified and verbalize understanding of discharge to [facility].
[2020-04-12 14:38] VITALS: BP 136/72
--- NOTE | 2020-04-13 10:12 | Physician Query Clarification ---
PQ-Uncertain Diagnosis Admission/Discharge Admission Date: Apr 07, 2020 at 13:00 Discharge Date: Apr 12, 2020 at 13:00 Dr. Suggs, The medical record reflects the following clinical scenario: History/Risk Factors: Sepsis, dehydration, moderate protein energy malnutrition, Parkinson's Clinical Findings: 04/07 CXR - RLL pneumonia 04/08 CXR - Decreased lung volumes with increased bibasilar atelectasis or consolidation. Dr. Noe PN states - RLL PNA considered HAP since just DC IRF-however white count has remained normal, chest x-ray shows no infiltrate, ABX stopped d/t diarrhea in a pt with hx of c. diff Treatment: IV ABX Question: Is Pneumonia a clinically valid diagnosis? Pneumonia was documented in the beginning of the record then documentation states that the CXR shows no infiltrate and the WBC is normal and the abx was DC'd. Please clarify whether or not the patient had pneumonia. Please document a response in Progress Note or Discharge Summary. 1. Yes, pneumonia is clinically valid, condition resolved. 2. No, pneumonia, condition ruled out. 3. Other, with explanation of clinical findings. 4. Undetermined, no explanation for clinical findings. PHYSICIAN RESPONSE Diagnosis clinically valid: Yes, Conditon resolved Please remember a lack of response to the above will prompt a phone page by CDI/Coding staff. In responding to this query, please exercise your independent professional judgment. The purpose of this communication is to more accurately reflect the complexity of your patients condition. The fact that a question is asked does not imply that any particular answer is desired or expected. Thank you for your timely response to this clarification. Requestors name: John THIS PHYSICIAN QUERY FORM IS A PERMANENT PART OF THE MEDICAL RECORD JOHN ALMAGUER Apr 13, 2020 10:12 ERIN SUGGS MD Apr 13, 2020 19:48
== END 2020-04-12 13:00 | DRG 871 ==
LOC: EDUNIT# 09:50 → ER 09:52 → 4TH 13:00
PROVIDERS: ADMIT Internal Medicine; ATTEND Family Medicine
DX: A41.9 Sepsis, unspecified organism (principal); J18.9 Pneumonia, unspecified organism; Z94.0 Kidney transplant status; E44.0 Moderate protein-calorie malnutrition; E86.0 Dehydration; G20 Parkinson's disease; I11.0 Hypertensive heart disease with heart failure; I50.9 Heart failure, unspecified; I48.91 Unspecified atrial fibrillation; Z20.828 Contact with and (suspected) exposure to other viral communicable diseases; G62.9 Polyneuropathy, unspecified; K52.9 Noninfective gastroenteritis and colitis, unspecified; M19.91 Primary osteoarthritis, unspecified site; R53.1 Weakness; H91.93 Unspecified hearing loss, bilateral; F41.9 Anxiety disorder, unspecified; N19 Unspecified kidney failure; R19.7 Diarrhea, unspecified; F32.9 Major depressive disorder, single episode, unspecified; Z96.21 Cochlear implant status; Z97.0 Presence of artificial eye; Z95.2 Presence of prosthetic heart valve; Z91.81 History of falling; Z87.01 Personal history of pneumonia (recurrent); Z85.528 Personal history of other malignant neoplasm of kidney; Z87.440 Personal history of urinary (tract) infections; E87.6 Hypokalemia; Z68.23 Body mass index [BMI] 23.0-23.9, adult
CPT/HCPCS: 36415; 70450; 70486; 71045; 72125; 80053; 81000; 83605; 83735; 84145; 84484; 85007; 85025; 85027; 85610; 85730; 86141; 87040; 87088; 87635; 87804; 93005; 96374; 96375

== ENCOUNTER 2020-07-31 02:24 | Inpatient (IN) | payer MEDICARE, OTHER ==
[~2020-07-31] VITALS: Ht 154.9 cm; Wt 57.6 kg
[~2020-07-31 02:24] MED LIST changes: +METR-143 PO; +ONDA4TAB11 PO
--- NOTE | 2020-07-31 02:42 | ED General ---
General Chief Complaint: General Problems/Pain Stated Complaint: FALL Nursing Triage Note: PT PRESENTS [facility]IA [facility] CART FROM HOME WITH C/O WEAKNESS. PT REPORTS AT APPROX 0100 ON THIS DAY, PT WAS ATTEMPTING TO STAND TO WALK TO THE RESTROOM WHEN SHE "SLID DOWN THE BED." REPORTS SHE WAS UNABLE TO GET UP AND REQUIRED HER DAUGHTERS ASSISTANCE GETTING TO THE RESTROOM. PT REPORTS WHILE IN RESTROOM, SHE "SLID OFF THE TOILET" D/T WEAKNESS. DENIES INJURY, HITTING HEAD, OR LOC. A&OX4. Nursing Sepsis Screen: No Definite Risk Source of Information: Patient History of Present Illness Date Seen by Provider: Jul 31, 2020 Time Seen by Provider: 02:25 Initial Comments PT ARRIVES VIA EMS FROM HOME STATES SHE GOT UP TO GO TO THE BATHROOM AND WAS TOO WEAK TO STAND, AND SLID DOWN THE SIDE OF THE BED AND WAS NOT ABLE TO GET UP HER DAUGHTERS WERE CALLED BY HER ( HE CANNOT LIFT HER ) AND THEY CAME AND HELPED HER TO THE BATHROOM, AND WAS AGAIN TOO WEAK TO STAND AND SLID DOWN OFF THE TOILET --BOTH EPISODES WERE WITNESSED BY FAMILY. PT DENIES ANY INJURY AT ALL OR ANY PAIN ANYWHERE FROM THESE INCIDENTS DENIES LOSS OF CONSCIOUSNESS AND DID NOT HIT HER HEAD AT ANY TIME PT HAS NO COMPLAINTS AND STATES "I FEEL FINE" BUT STATES SHE IS JUST TOO WEAK TO STAND UP NO PARESTHESIAS OR MOTOR DEFICITS NO HEADACHE NO VISION CHANGES NO DIZZINESS NO NAUSEA/VOMITING/DIARRHEA/ABDOMINAL PAIN NO COUGH OR URI SYMPTOMS NO CHEST PAIN OR PALPITATIONS NO SHORTNESS OF BREATH NO URINARY SYMPTOMS WAS REPORTED TO EMS THAT PT HAS HAD THIS BEFORE AND WAS FROM UTI. NO FEVER OR RECENT ILLNESS NO KNOWN EXPOSURE TO COVID-19 PT HAD HER FIRST COVID-19 VACCINATION 2 WEEKS AGO. PT HAD ROUTINE WELLNESS EXAM TODAY ( Sunday07/30/20) AT [facility] AND WAS FINE, AND HAD A PNEUMONIA VACCINATION TODAY PT HAS HAD A RENAL TRANSPLANT 6 YEARS AGO AND NOT HAD ANY PROBLEMS WITH IT. 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 [facility] Allergies and Home Medications Allergies Coded Allergies: codeine (Unverified Allergy, Unknown, 02/12/17) morphine (Verified Allergy, Unknown, NAUSEA, 02/12/17) Home Medications Alosetron HCl 0.5 Mg Tab, 0.5 MG PO BID, (Reported) Ascorbate Calcium 500 Mg Tablet, 500 MG PO DAILY, (Reported) Aspirin 81 Mg Tablet.dr, 81 MG PO BID, (Reported) Baclofen 10 Mg Tablet, 5 MG PO BID, (Reported) TAKES 1/2 OF A 10MG TAB Brinzolamide 10 Ml Btl, 1 DROP OD BID, (Reported) Bupropion HCl 100 Mg Tablet, 75 MG PO DAILY, (Reported) Clonazepam 0.5 Mg Tablet, 0.25 MG PO DAILY, (Reported) TAKES 1/2 OF A 0.5MG TAB Cranberry Fruit Concentrate 450 Mg Capsule, 450 MG PO BID, (Reported) Cyclosporine 1 Each Droperette, 1 EACH OD BID, (Reported) Dicyclomine HCl 20 Mg Tablet, 10 MG PO QID, (Reported) TAKES 1/2 OF A 20MG TAB Famotidine 20 Mg Tablet, 20 MG PO DAILY, (Reported) Fluticasone Propionate 9.9 Ml [place].susp, 2 SPRAY NS DAILY PRN for CONGESTION, (Reported) Folic Acid/Vitamin B Comp W-C 0.8 Mg Tablet, 0.8 MG PO DAILY, (Reported) Gabapentin 600 Mg Tablet, 600 MG PO TID, (Reported) L.acidoph & Paracasei,B.lactis 1 Each Capsule, 1 CAP PO DAILY, (Reported) Loperamide HCl/Simethicone 1 Each Tablet, 1 TAB PO DAILY PRN for DIARRHEA, (Reported) Mirtazapine 7.5 Mg Tablet, 7.5 MG PO DAILY, (Reported) Mycophenolate Sodium 360 Mg Tablet.dr, 360 MG PO BID, (Reported) Pitavastatin Calcium 1 Mg Tablet, 2 MG PO DAILY, (Reported) Tacrolimus 1 Mg Capsule, 1 MG PO BID, (Reported) Patient Home Medication List Home Medication List Reviewed: Yes Review of Systems Review of Systems Constitutional: see HPI; No chills, No diaphoresis, No dizziness, No fever, No malaise; weakness EENTM: no symptoms reported; No ear pain, No blurred vision, No double vision, No nose congestion, No throat pain Respiratory: no symptoms reported; No cough, No orthopnea, No short of breath Cardiovascular: no symptoms reported; No chest pain, No edema, No palpitations, No syncope, No vascular heart diseas Gastrointestinal: no symptoms reported; No abdominal pain, No diarrhea, No loss of appetite, No nausea, No vomiting Genitourinary: no symptoms reported Musculoskeletal: no symptoms reported; No back pain, No joint pain, No neck pain Skin: no symptoms reported Psychiatric/Neurological: No Symptoms Reported; Denies Headache, Denies Numbness, Denies Paresthesia, Denies Seizure, Denies Tingling, Denies Tremors Hematologic/Lymphatic: No Symptoms Reported Immunological/Allergic: see HPI, transplant Past Nqwveka-Uzcnfe-Xbrroq Hx Past Med/Social Hx: Reviewed and Corrections made Patient Social History 2nd Hand Smoke Exposure: No Recent Infectious Disease Expo: No Recent Hopitalizations: No (DECEMBER 2016-) Immunizations Up To Date Tetanus Booster (TDap): Unknown PED Vaccines UTD: No Date of Pneumonia Vaccine: Jun 18, 2014 Date of Influenza Vaccine: Mar 30, 2020 Seasonal Allergies Seasonal Allergies: Yes Past Medical History Surgeries: Yes (COCHLEAR IMPLANT, CARDIAC ABLATION, AORTIC VALVE, KIDNEY TRANSPLANT) Appendectomy, Cardiac, Dialysis, Ear Surgery, Eye Surgery, Hysterectomy, Kidney Transplant, Nephrectomy, Oophorectomy, Orthopedic, Renal, Tonsillectomy, Valve Replacement Respiratory: Yes Pneumonia Currently Using CPAP: No Currently Using BIPAP: No Cardiac: Yes ( CHF; AORTIC PIG VALVE ; PAROXYSMAL ATRIAL FIB. 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 Sexually Transmitted Disease: No HIV/AIDS: No Genitourinary: Yes (BILATERAL NEPHRECTOMY AND RENAL TRANSPLANT) Kidney Infection, Renal Failure, Polycystic Kidney Disease Gastrointestinal: Yes (H.PYLORI) Chronic Diarrhea, Polyps, C-Diff Musculoskeletal: Yes (FREQUENT FALLS/USES WALKER) Degenerate Disk Disease, Arthritis, Chronic Back Pain Endocrine: Yes Parathyroid Disease HEENT: Yes (LEFT EYE REMOVED DUE TO UVEITIS; RIGHT COCHLEAR IMPLANT) Cataract, Glaucoma Hearing Impairment: Hard of Hearing, Hearing Aide Left Cancer: Yes Kidney HAD BILATERAL NEPHRECTOMY FOR POLYCYSTIC KIDNEY DISEASE WITH RENAL TRANSPLANT "FOUND A TINY SPOT OF CANCER ON ONE OF HER KIDNEYS" --NO FURTHER TREATMENT Psychosocial: Yes Anxiety, Depression Integumentary: No Blood Disorders: No Adverse Reaction/Blood Tranf: No (HAS HAD BLOOD WITH NO REACTION) Family Medical History Alzheimer's disease 19 MOTHER (later in life) Dementia 19 MOTHER No Pertinent Family Hx PAST SURGICAL HISTORY: -LEFT EYE REMOVED/ARTIFICIAL EYE DUE TO UVEITIS -RIGHT COCHLEAR IMPLANT -DIALYSIS SHUNT LEFT ARM--DIALYSIS X 4 YEARS -MULTIPLE REVISIONS OF DIALYSIS AV GRAFT -PERITONEAL DIALYSIS SHUNT -BILATERAL NEPHRECTOMY WITH RENAL TRANSPLANT-IN RLQ OF ABDOMEN--6 YEARS AGO--FOR POLYCYSTIC KIDNEY DISEASE -CARDIAC ABLATION -AORTIC VALVE REPLACEMENT WITH PIG VALVE -TONSILLECTOMY -APPENDECTOMY -HYSTERECTOMY/ LATER BSO -CARDIAC CATH 2010--NON-OBSTRUCTIVE DISEASE, NO INTERVENTION -BILATERAL PULMONARY VEIN ABLATION WIHT STAPLE AMPTUATION OF LEFT ATRIAL APPENDAGE AT SAME TIME AORTIC VALVE REPLACEMENT -EGD/COLONOSCOPIES/POLYPECTOMIES -EXCISION OF LEFT HIP HEMATOMA 01/2017 [facility] [place]. Physical Exam Vital Signs Vital Signs - First Documented 07/31/20 02:26 Temp 36.7 Pulse 81 Resp 18 B/P (MAP) 135/71 (92) Pulse Ox 98 O2 Delivery Room Air Capillary Refill : Less Than 3 Seconds Height, Weight, BMI Height: 5'1.00" Weight: 127lbs. 1.0oz. [id number]; 23.00 BMI Method:Stated General Appearance: No Apparent Distress, WD/WN, Other (DOES NOT APPEAR ILL OR TO BE IN ANY DISCOMFORT OR DISTRESS; AWAKE AND ALERT--DOES NOT APPEAR LETHARGIC) HEENT: PERRL/EOMI, Pharynx Normal, Other (NO EXTERNAL EVIDENCE OF TRAUMA TO HEAD; ARTIFICICAL LEFT EYE; RIGHT COCHLEAR IMPLANT) Neck: Full Range of Motion, Normal Inspection, Non Tender, Supple Respiratory: Chest Non Tender, Normal Breath Sounds, No Accessory Muscle Use, No Respiratory Distress Cardiovascular: Regular Rate, Rhythm, No Edema, No JVD, No Murmur, Normal Peripheral Pulses Gastrointestinal: Normal Bowel Sounds, No Pulsatile Mass, Non Tender, Soft Back: Normal Inspection, No CVA Tenderness, No Vertebral Tenderness Extremity: Normal Capillary Refill, Normal Inspection, Normal Range of Motion, Non Tender, No Calf Tenderness, No Pedal Edema, Other (OLD DIALYSIS GRAFTS RIGHT ARM) Neurologic/Psychiatric: Alert, Oriented x3, No Motor/Sensory Deficits, Normal Mood/Affect, anaesthetic technician II-XII Norm as Tested, Other (NO TREMOR NOTED. ) Skin: Normal Color, Warm/Dry; No Ecchymosis; Other (NO EXTERNAL EVIDENCE OF TRAUMA. ) Progress/Results/Core Measures Suspected Sepsis Recent Fever Within 48 Hours: No Infection Criteria Present: None New/Unexplained Altered Menta: No Sepsis Screen: No Definite Risk SIRS Temperature: Pulse: 81 Respiratory Rate: 18 Laboratory Tests 07/31/20 02:33: White Blood Count 7.4 Blood Pressure 135 /71 Mean: 92 Laboratory Tests 07/31/20 02:33: Creatinine 0.90, INR Comment 1.0, Platelet Count 185, Total Bilirubin 0.9 Results/Orders Lab Results Laboratory Tests Test 07/31/20 02:33 07/31/20 02:35 07/31/20 02:40 07/31/20 03:40 Range/Units White Blood Count 7.4 4.3-11.0 10^3/uL Red Blood Count 4.78 3.80-5.11 10^6/uL Hemoglobin 14.1 11.5-16.0 g/dL Hematocrit 42 35-52 % Mean Corpuscular Volume 88 80-99 fL Mean Corpuscular Hemoglobin 30 25-34 pg Mean Corpuscular Hemoglobin Concent 33 32-36 g/dL Red Cell Distribution Width 13.4 10.0-14.5 % Platelet Count 185 130-400 10^3/uL Mean Platelet Volume 10.5 9.0-12.2 fL Immature Granulocyte % (Auto) 0 % Neutrophils (%) (Auto) 76 H 42-75 % Lymphocytes (%) (Auto) 14 12-44 % Monocytes (%) (Auto) 9 0-12 % Eosinophils (%) (Auto) 0 0-10 % Basophils (%) (Auto) 0 0-10 % Neutrophils # (Auto) 5.6 1.8-7.8 10^3/uL Lymphocytes # (Auto) 1.1 1.0-4.0 10^3/uL Monocytes # (Auto) 0.7 0.0-1.0 10^3/uL Eosinophils # (Auto) 0.0 0.0-0.3 10^3/uL Basophils # (Auto) 0.0 0.0-0.1 10^3/uL Immature Granulocyte # (Auto) 0.0 0.0-0.1 10^3/uL Prothrombin Time 13.7 12.2-14.7 SEC INR Comment 1.0 0.8-1.4 Activated Partial Thromboplast Time 30 24-35 SEC Sodium Level 141 135-145 MMOL/L Potassium Level 3.9 3.6-5.0 MMOL/L Chloride Level 104 98-107 MMOL/L Carbon Dioxide Level 22 21-32 MMOL/L Anion Gap 15 H 5-14 MMOL/L Blood Urea Nitrogen 15 7-18 MG/DL Creatinine 0.90 0.60-1.30 MG/DL Estimat Glomerular Filtration Rate > 60 BUN/Creatinine Ratio 17 Glucose Level 104 70-105 MG/DL Calcium Level 9.3 8.5-10.1 MG/DL Corrected Calcium 8.9 8.5-10.1 MG/DL Magnesium Level 1.8 1.6-2.4 MG/DL Total Bilirubin 0.9 0.1-1.0 MG/DL Aspartate Amino Transf (AST/SGOT) 15 5-34 U/L Alanine Aminotransferase (ALT/SGPT) 12 0-55 U/L Alkaline Phosphatase 86 40-136 U/L Total Creatine Kinase 38 29-168 U/L Creatine Kinase MB 0.9 <6.6 NG/ML Myoglobin 117.3 H 10.0-92.0 NG/ML Troponin I < 0.028 <0.028 NG/ML Total Protein 7.8 6.4-8.2 GM/DL Albumin 4.5 3.2-4.5 GM/DL Procalcitonin 0.14 H <0.10 NG/ML Glucometer 96 70-110 MG/DL Urine Color YELLOW Urine Clarity SL CLOUDY Urine pH 6.0 5-9 Urine Specific Flynn 1.015 L 1.016-1.022 Urine Protein NEGATIVE NEGATIVE Urine Glucose (UA) NEGATIVE NEGATIVE Urine Ketones NEGATIVE NEGATIVE Urine Nitrite POSITIVE H NEGATIVE Urine Bilirubin NEGATIVE NEGATIVE Urine Urobilinogen 0.2 < = 1.0 MG/DL Urine Leukocyte Esterase 1+ H NEGATIVE Urine RBC (Auto) NEGATIVE NEGATIVE Urine RBC NONE /HPF Urine WBC 10-25 H /HPF Urine Crystals PRESENT H /LPF Urine Amorphous Sediment MOD KATERYNA URATES H /LPF Urine Bacteria LARGE H /HPF Urine Casts NONE /LPF Urine Mucus NEGATIVE /LPF Urine Culture Indicated YES Coronavirus 2019 ([facility]) Negative Negative My Orders Orders - SHIRIN MEHTA DO Accucheck Stat ONCE (07/31/20 02:26) Ed Iv/Invasive Line Start (07/31/20 02:26) Ekg Tracing (07/31/20 02:26) Monitor-Rhythm Ecg Trace Only (07/31/20 02:26) Cbc With Automated Diff (07/31/20 02:26) Comprehensive Metabolic Panel (07/31/20 02:26) Creatine Kinase (07/31/20 02:26) Creatine Kinase Mb (07/31/20 02:26) Magnesium (07/31/20 02:26) Procalcitonin (Pct) (07/31/20 02:26) Protime With Inr (07/31/20 02:26) Partial Thromboplastin Time (07/31/20 02:26) Ua Culture If Indicated (07/31/20 02:26) Myoglobin Serum (07/31/20 02:26) Troponin I (07/31/20 02:26) Chest 1 View, Ap/Pa Only (07/31/20 02:26) Straight Cath For Spec.-Adult (07/31/20 03:02) Urine Culture (07/31/20 02:40) Ceftriaxone For Iv Use (Rocephin For I (07/31/20 03:45) Metronidazole Tablet (Flagyl Tablet) (07/31/20 03:45) Covid 19 Inhouse Test (07/31/20 03:35) Medications Given in ED Vital Signs/I&O 07/31/20 07/31/20 07/31/20 07/31/20 07:00 08:32 11:55 12:51 Temp 36.6 36.7 Pulse 75 73 71 73 Resp 18 20 B/P (MAP) 139/64 (89) 128/68 (88) Pulse Ox 97 97 O2 Delivery Room Air Room Air 07/31/20 15:25 Temp 36.9 Pulse 73 Resp 19 B/P (MAP) 143/61 (88) Pulse Ox 98 O2 Delivery Room Air Capillary Refill : Less Than 3 Seconds Blood Pressure Mean: 92 Point of Care Testing Finger Stick Blood Glucose: 96 Blood Glucose Action Taken: PROVIDER AWARE. Progress Note : Progress Note UNEVENTFUL ER STAY PT HAD NO COMPLAINTS EKG'S SHOW ARTIFACT, BUT TELEMETRY SHOWS NSR THROUGHOUT ER STAY CATH UA DONE ECG Initial ECG Impression Date: Jul 31, 2020 Initial ECG Impression Time: 02:33 Initial ECG Rate: 81 Comment APPEARS SINUS RHYTHM, WITH ARTIFACT EKG : EKG Time: 02:34 Rate: 80 Rhythm: Normal Sinus (WITH ARTIFACT) Diagnostic Imaging Comments CXR--NO ACUTE PROCESS, PENDING RADIOLOGIST REVIEW Reviewed: Reviewed by Me Departure Communication (Admissions) [id number]--SPOKE WITH DR. DRIVER, HOSPITALIST FOR [facility]. ACCEPTS PT FOR ADMIT Impression Primary Impression: Urinary tract infection Additional Impressions: Generalized weakness History of renal transplant Disposition: ADMITTED INPATIENT Condition: Stable Admissions Decision to Admit Reason: Admit from ER (General) Decision to Admit/Date: Jul 31, 2020 Time/Decision to Admit Time: 03:35 Departure-Patient Inst. Referrals: [facility] (PCP) Primary Care Physician ANGELINE GUZMAN APRN (Family) Primary Care Physician SHIRIN MEHTA DO Jul 31, 2020 02:42
[2020-07-31 02:43] LABS: BASOPHILS % (AUTO) 0 % (0-10); EOSINOPHILS % (AUTO) 0 % (0-10); HEMATOCRIT 42 % (35-52); HEMOGLOBIN 14.1 g/dL (11.5-16.0); LYMPHOCYTES # (AUTO) 1.1 10^3/uL (1.0-4.0); LYMPHOCYTES % (AUTO) 14 % (12-44); MEAN CORPUSCULAR HEMOGLOBIN 30 pg (25-34); MEAN CORPUSCULAR HGB CONC 33 g/dL (32-36); MEAN CORPUSCULAR VOLUME 88 fL (80-99); MEAN PLATELET VOLUME 10.5 fL (9.0-12.2); MONOCYTES # (AUTO) 0.7 10^3/uL (0.0-1.0); MONOCYTES % (AUTO) 9 % (0-12); NEUTROPHILS # (AUTO) 5.6 10^3/uL (1.8-7.8); NEUTROPHILS % (AUTO) 76 % (42-75); PLATELET COUNT 185 10^3/uL (130-400); WHITE BLOOD COUNT 7.4 10^3/uL (4.3-11.0)
[2020-07-31 02:59] LABS: ALBUMIN 4.5 GM/DL (3.2-4.5); CHLORIDE 104 MMOL/L (98-107); POTASSIUM 3.9 MMOL/L (3.6-5.0); SODIUM 141 MMOL/L (135-145)
[2020-07-31 03:01] LABS: CALCIUM 9.3 MG/DL (8.5-10.1)
[2020-07-31 03:02] LABS: GLUCOSE 104 MG/DL (70-105); TOTAL PROTEIN 7.8 GM/DL (6.4-8.2)
[2020-07-31 03:03] LABS: CARBON DIOXIDE 22 MMOL/L (21-32)
[2020-07-31 03:04] LABS: BILIRUBIN,TOTAL 0.9 MG/DL (0.1-1.0)
[2020-07-31 03:05] LABS: ALKALINE PHOSPHATASE 86 U/L (40-136); GFR ESTIMATED > 60
[2020-07-31 03:06] LABS: BUN/CREATININE RATIO 17
[2020-07-31 03:08] LABS: ALANINE AMINOTRANSFERASE 12 U/L (0-55); MAGNESIUM 1.8 MG/DL (1.6-2.4)
[2020-07-31 03:09] LABS: CREATINE KINASE 38 U/L (29-168)
[2020-07-31 03:12] LABS: BILIRUBIN,URINE NEGATIVE (NEGATIVE); CLARITY,URINE SL CLOUDY; COLOR,URINE YELLOW; GLUCOSE, URINE (UA) NEGATIVE (NEGATIVE); KETONES,URINE NEGATIVE (NEGATIVE); LEUKOCYTE ESTERASE ,URINE 1+ (NEGATIVE); NITRITE,URINE POSITIVE (NEGATIVE); PROTEIN,URINE NEGATIVE (NEGATIVE)
[2020-07-31 03:16] LABS: CREATINE KINASE MB 0.9 NG/ML (<6.6)
[2020-07-31 03:24] LABS: AMORPHOUS SEDIMENT,UR MOD AMOR URATES /LPF; BACTERIA,URINE LARGE /HPF
[2020-07-31 03:33] LABS: PROTHROMBIN TIME PATIENT 13.7 SEC (12.2-14.7)
[2020-07-31] MEDS ORDERED: cefTRIAXone FOR IV USE 1,000 MG in WATER (STERILE) FOR INJECTION 10 ML IV ONE (03:45)
[2020-07-31] MEDS ORDERED: metroNIDAZOLE 250 MG (FLAGYL) TAB PO ONE (03:45)
[2020-07-31 05:23] VITALS: BP 147/65
[2020-07-31] MEDS ORDERED: NFALOSE0.5 PO (05:30)
[2020-07-31] MEDS ORDERED: MIRT7.5T8 PO (05:30)
[2020-07-31] MEDS ORDERED: ACETAMINOPHEN 500 MG TAB (TYLENOL) PO PRN (05:30)
[2020-07-31] MEDS ORDERED: 1/2 NS IV SOLUTION 1,000 ML IV SCH (05:30)
[2020-07-31] MEDS ORDERED: ONDANSETRON 4 MG/2 ML (SDV) Z0FRAN IVP PRN (05:30)
[2020-07-31] MEDS: metroNIDAZOLE 250 MG (FLAGYL) TAB PO SCH ×2 (05:36→19:24)
--- NOTE | 2020-07-31 07:11 | Diagnostic Imaging Report ---
EXAMINATION: Portable erect AP chest at 2:55 AM INDICATION: Weakness FINDINGS: The heart size is within normal limits and stable when compared to 04/13/2020. The sternotomy wires and surgical clips noted previously are again evident and no different. The lungs are clear. There is no sign of failure, pneumonia or pleural effusion. The mediastinum is not widened. The osseous structures are intact. IMPRESSION: There is evidence of prior cardiac surgery but there is no sign of an acute cardiopulmonary abnormality. Dictated by: Dictated on workstation # [id number]
[2020-07-31 08:32] VITALS: BP 139/64
--- NOTE | 2020-07-31 10:54 | History & Physical-Hospitalist ---
History of Present Illness HPI/Chief Complaint CC: UTI and inability to ambulate HPI: This is a 70yoWF clinic patient of [facility] well known to me from prior admits for UTI then IRF for PD disability who presents to the ER with complaints of inability to walk. Patient has severe Parkinson's. Rocephin given empirically. Patient has a h/o life threatening C diff colitis so Flagyl 250mg PO BID ordered. Source: patient Exam Limitations: no limitations Date Seen 07/31/20 Time Seen by a Provider: 11:00 Attending Physician Chaya Gerber DO [facility] [place] Referring Physician Date of Admission Jul 31, 2020 at 03:35 Home Medications & Allergies Home Medications Reviewed patient Home Medication Reconciliation performed by pharmacy medication reconciliations library technician and/or nursing. Patients Allergies have been reviewed. Allergies Allergies Coded Allergies codeine (Unverified Allergy, Unknown, 02/12/17) morphine (Verified Allergy, Unknown, NAUSEA, 02/12/17) Past Divweeq-Vscfmm-Bvylad Hx Past Med/Social Hx: Reviewed Nursing Past Med/Soc Hx, Reviewed and Corrections made Patient Social History Marrital Status: Employed/Student: retired Alcohol Use: Denies Use Recreational Drug Use: No Smoking Status: Never a Smoker 2nd Hand Smoke Exposure: No Recent Foreign Travel: No Contact w/other who traveled: No Recent Hopitalizations: No (DECEMBER 2016-) Recent Infectious Disease Expo: No Immunizations Up To Date Tetanus Booster (TDap): Unknown Pediatric: No Date of Pneumonia Vaccine: Jul 30, 2020 Date of Influenza Vaccine: Mar 30, 2020 Seasonal Allergies Seasonal Allergies: Yes Past Medical History Surgeries: Appendectomy, Cardiac, Dialysis, Ear Surgery, Eye Surgery, Hysterectomy, Kidney Transplant, Nephrectomy, Oophorectomy, Orthopedic, Renal, Tonsillectomy, Valve Replacement Currently Using CPAP: No Currently Using BIPAP: No Cardiac: Atrial Fibrillation, High Cholesterol, Hypertension, Irregular Heartbeat, Valvular Heart Disease Neurological: Parkinson's Disease Reproductive: No Sexually Transmitted Disease: No HIV/AIDS: No Hysterectomy, Menopausal Genitourinary: Kidney Infection, Renal Failure, Polycystic Kidney Disease Gastrointestinal: Chronic Diarrhea, Polyps, C-Diff Musculoskeletal: Degenerate Disk Disease, Arthritis, Chronic Back Pain Endocrine: Parathyroid Disease HEENT: Cataract, Glaucoma Hearing Impairment: Hard of Hearing, Hearing Aide Left Cancer: Kidney Cancer: HAD BILATERAL NEPHRECTOMY FOR POLYCYSTIC KIDNEY DISEASE WITH RENAL TRANSPLANT "FOUND A TINY SPOT OF CANCER ON ONE OF HER KIDNEYS" --NO FURTHER TREATMENT Psychosocial: Anxiety, Depression History of Blood Disorders: No Adverse Reaction to Blood Martins: No (HAS HAD BLOOD WITH NO REACTION) Family History Alzheimer's disease 19 MOTHER (later in life) Dementia 19 MOTHER No Pertinent Family Hx PAST SURGICAL HISTORY: -LEFT EYE REMOVED/ARTIFICIAL EYE DUE TO UVEITIS -RIGHT COCHLEAR IMPLANT -DIALYSIS SHUNT LEFT ARM--DIALYSIS X 4 YEARS -MULTIPLE REVISIONS OF DIALYSIS AV GRAFT -PERITONEAL DIALYSIS SHUNT -BILATERAL NEPHRECTOMY WITH RENAL TRANSPLANT-IN RLQ OF ABDOMEN--6 YEARS AGO--FOR POLYCYSTIC KIDNEY DISEASE -CARDIAC ABLATION -AORTIC VALVE REPLACEMENT WITH PIG VALVE -TONSILLECTOMY -APPENDECTOMY -HYSTERECTOMY/ LATER BSO -CARDIAC CATH 2010--NON-OBSTRUCTIVE DISEASE, NO INTERVENTION -BILATERAL PULMONARY VEIN ABLATION WIHT STAPLE AMPTUATION OF LEFT ATRIAL APPENDAGE AT SAME TIME AORTIC VALVE REPLACEMENT -EGD/COLONOSCOPIES/POLYPECTOMIES -EXCISION OF LEFT HIP HEMATOMA 01/2017 [facility] [place]. Review of Systems Constitutional: see HPI, malaise, weakness Genitourinary: dysuria Psychiatric/Neurological: Weakness Physical Exam Physical Exam Vital Signs Vital Signs - First Documented 07/31/20 02:26 Temp 36.7 Pulse 81 Resp 18 B/P (MAP) 135/71 (92) Pulse Ox 98 O2 Delivery Room Air Capillary Refill : Less Than 3 Seconds Height, Weight, BMI Height: 5'1.00" Weight: 127lbs. 1.0oz. 57.740216bq; 23.01 BMI Method:Stated General Appearance: No Apparent Distress, Chronically ill Eyes: Right Eye Normal Inspection, Right Eye PERRL HEENT: PERRL/EOMI, Normal ENT Inspection, Pharynx Normal, Moist Mucous Membranes, Other ([place]) Neck: Full Range of Motion, Normal Inspection, Non Tender Respiratory: Chest Non Tender, Lungs Clear, Normal Breath Sounds, No Accessory Muscle Use, No Respiratory Distress Cardiovascular: Regular Rate, Rhythm, No Edema, No Gallop, No JVD, No Murmur, Normal Peripheral Pulses Gastrointestinal: Normal Bowel Sounds, No Organomegaly, No Pulsatile Mass, Non Tender, Soft Back: Normal Inspection, No CVA Tenderness, No Vertebral Tenderness Extremity: Normal Capillary Refill, Normal Inspection, Normal Range of Motion, Non Tender, No Calf Tenderness, No Pedal Edema Neurologic/Psychiatric: Alert, Oriented x3, No Motor/Sensory Deficits, Dep ressed Affect Skin: Normal Color, Warm/Dry Lymphatic: No Adenopathy Results Results/Procedures Labs Laboratory Tests 07/31/20 02:33 08/01/20 06:09 Patient resulted labs reviewed. Assessment/Plan Admission Diagnosis Assessment: UTI Parkinson's disease Falls Renal transplant status h/o C diff colitis Inability to ambulate Plan: IV abx Await UCx PT OT Home meds Admission Status: Inpatient Order (span 2 midnights) Reason for Inpatient Admission: uti pd Diagnosis/Problems Diagnosis/Problems (1) UTI (urinary tract infection) (2) Generalized weakness (3) Parkinsons Status: Acute (4) Multiple falls Status: Acute (5) renal transplant patient (6) History of Clostridioides difficile infection CHAYA GERBER DO Jul 31, 2020 10:54
[2020-07-31 11:55] VITALS: BP 128/68
[2020-07-31 15:25] VITALS: BP 143/61
--- NOTE | 2020-07-31 16:02 | Physical Therapy Evaluation ---
PT Evaluation-General Medical Diagnosis Admission Date Jul 31, 2020 at 03:35 Medical Diagnosis: UTI Onset Date: Jul 31, 2020 Therapy Diagnosis Therapy Diagnosis: weakness Height/Weight Height (Feet): 5 Height (Inches): 1.00 Weight (Pounds): 127 Weight (Ounces): 1.0 Precautions Precautions/Isolations: Fall Prevention, Standard Precautions Referral Physician: Chaya Gerber Reason for Referral: Evaluation/Treatment Medical History Pertinent Medical History: Atrial Fib, HTN, Neuropathy, Parkinson's, Renal Insufficiency Current History Patient admitted 07/31 with sudden onset of weakness and falls. Reviewed History: Yes Social History Home: Single Level Current Living Status: Spouse Prior Prior Level of Function SCALE: Activities may be completed with or without assistive devices. 4-Bgamadvyzi-kfotjdx completes the activity by him/herself with no assistance from a helper. 5-Set-up or Clean-up Assistance-helper sets up or cleans up; patient completes activity. F[place]a assists only prior to or following the activity. 4-Supervision or Touching Assistance-helper provides verbal cues and/or touching/steadying and/or contact guard assistance as patient completes activity. Assistance may be provided throughout the activity or intermittently. 3-Partial/Moderate Assistance-helper does LESS THAN HALF the effort. [place]a lifts, holds or supports trunk or limbs, but provides less than half the effort. 2-Substantial/Maximal Assistance-helper does MORE THAN HALF the effort. [place] lifts or holds trunk or limbs and provides more than half the effort. 4-Jaziqqbvg-ukkkus does ALL the effort. Patient does none of the effort to complete the activity. Or, the assistance of 2 or more helpers is required for the patient to complete the activity. If activity was not attempted, code reason: 7-Patient Refused. 9-Not Applicable-not attempted and the patient did not perform the activity before the current illness, exacerbation or injury. 10-Not Attempted due to Environmental Limitations-(lack of equipment, weather restraints, etc.). 88-Not Attempted due to Medical Conditions or Safety Concerns. Bed Mobility: 6 Transfers (B,C,W/C): 6 Gait: 6 Stairs: 6 PT Evaluation-Current Subjective Patient having minor confusion. Objective Patient Orientation: Person, Situation ROM/Strength Strength Lower Extremities gross 4/5 Sensory Vision: Functional Hearing: Functional Transfers Roll Left to Right (QC): 5 Sit to Lying (QC): 5 Lying to Sitting/Side of Bed(Q: 5 Sit to Stand (QC): 5 Chair/Rst-ed-Ghapk Xfer(QC): 4 Gait Gait Assistive Device: FWW Comments/Gait Description Ambulated 150ft with FWW and CGA. Assist for IV pole. Pt had no LOB during g ait. Balance Sitting Static: Fair Sitting Dynamic: Fair Standing Static: Fair Standing Dynamic: Fair Assessment/Needs Pt is weak and unsteady on her feet. She will benefit from PT to address mobility and promote D/C to home. Rehab Potential: Good PT Mcc Goals Sales Expert Home Theater Goals PT Sales Expert Home Theater Goals Time Frame: Aug 07, 2020 Roll Left & Right (QC): 6 Sit to Lying (QC): 6 Lying-Sitting on Side/Bed(QC): 6 Sit to Stand (QC): 6 Chair/Fzz-py-Amrqu Xfer(QC): 6 Toilet Transfer (QC): 6 Walk 150 ft (QC): 6 PT Plan Problem List Problem List: Gait, Transfer Treatment/Plan Treatment Plan: Continue Plan of Care Treatment Duration: Aug 07, 2020 Frequency: 6 times per week Estimated Hrs Per Day: .5 hour per day Time/GCodes Time In: 1120 Time Out: 1135 Total Billed Treatment Time: 15 Total Billed Treatment visit, Evaluation Moderate Complexity KAREN CYR PT Jul 31, 2020 16:02
[2020-07-31 19:46] VITALS: BP 153/67
[2020-07-31] MEDS ORDERED: SIMETHICONE PO PRN (20:00)
[2020-07-31] MEDS ORDERED: [UNRECOGNIZED DRUG - OTHER] PO PRN (20:00)
[2020-07-31] MEDS ORDERED: LOPERAMIDE HCL PO PRN (20:00)
[2020-07-31] MEDS ORDERED: SIMETHICONE 80 MG (MYLICON) CHEW PO PRN (21:00)
[2020-07-31] MEDS ORDERED: TACROLIMUS 1 MG (PROGRAF) CAP NON-FORMULARY PO SCH (21:00)
[2020-07-31] MEDS ORDERED: FLUTICASONE NASAL SPRAY (FLONASE) 16 GM BTL NS PRN (21:00)
[2020-07-31] MEDS ORDERED: LOPERAMIDE SUSP 2 MG/15 ML (IMODIUM) UDC PO PRN (21:00)
[2020-07-31] MEDS: BACLOFEN 10 MG (LIORESAL) TAB PO SCH (21:58)
[2020-07-31] MEDS: ASPIRIN E.C. 81 MG (ECOTRIN) TAB PO SCH (21:58)
[2020-07-31] MEDS: ARTIFICAL TEARS 0.4 ML UNIT DOSE (REFRESH PLUS) OD SCH (21:58)
[2020-07-31] MEDS: DICYCLOMINE 10 MG (BENTYL) CAP PO SCH (21:58)
[2020-07-31] MEDS: GABAPENTIN 600 MG (NEURONTIN) TAB PO SCH (21:58)
[2020-07-31] MEDS: DORZOLAMIDE 2% 10 ML BTL (TRUSOPT) OD SCH (23:08)
[2020-07-31 23:21] VITALS: BP 133/65
[2020-08-01 03:58] VITALS: BP 124/62
[2020-08-01] MEDS: cefTRIAXone 1,000 MG/SWFI 10 ML IV PUSH IV SCH ×2 (04:09)
[2020-08-01 06:22] LABS: BASOPHILS % (AUTO) 0 % (0-10); EOSINOPHILS # (AUTO) 0.1 10^3/uL (0.0-0.3); EOSINOPHILS % (AUTO) 1 % (0-10); HEMATOCRIT 40 % (35-52); HEMOGLOBIN 13.6 g/dL (11.5-16.0); LYMPHOCYTES # (AUTO) 1.3 10^3/uL (1.0-4.0); LYMPHOCYTES % (AUTO) 19 % (12-44); MEAN CORPUSCULAR HEMOGLOBIN 30 pg (25-34); MEAN CORPUSCULAR HGB CONC 34 g/dL (32-36); MEAN CORPUSCULAR VOLUME 88 fL (80-99); MEAN PLATELET VOLUME 10.5 fL (9.0-12.2); MONOCYTES # (AUTO) 0.8 10^3/uL (0.0-1.0); MONOCYTES % (AUTO) 11 % (0-12); NEUTROPHILS # (AUTO) 4.6 10^3/uL (1.8-7.8); NEUTROPHILS % (AUTO) 68 % (42-75); PLATELET COUNT 183 10^3/uL (130-400); WHITE BLOOD COUNT 6.7 10^3/uL (4.3-11.0)
[2020-08-01 06:24] LABS: ALBUMIN 3.9 GM/DL (3.2-4.5); CHLORIDE 109 MMOL/L (98-107); SODIUM 142 MMOL/L (135-145)
[2020-08-01 06:25] LABS: CALCIUM 8.8 MG/DL (8.5-10.1)
[2020-08-01 06:26] LABS: GLUCOSE 91 MG/DL (70-105); TOTAL PROTEIN 6.9 GM/DL (6.4-8.2)
[2020-08-01 06:27] LABS: CARBON DIOXIDE 21 MMOL/L (21-32)
[2020-08-01 06:30] LABS: ALKALINE PHOSPHATASE 68 U/L (40-136); CREATININE SERUM 0.81 MG/DL (0.60-1.30); GFR ESTIMATED > 60
[2020-08-01 06:31] LABS: BUN/CREATININE RATIO 21
[2020-08-01 06:33] LABS: ALANINE AMINOTRANSFERASE 11 U/L (0-55)
[2020-08-01 08:00] VITALS: BP 129/66
[2020-08-01] MEDS: DICYCLOMINE 10 MG (BENTYL) CAP PO SCH (08:42)
[2020-08-01] MEDS: ASPIRIN E.C. 81 MG (ECOTRIN) TAB PO SCH ×2 (08:42→19:40)
[2020-08-01] MEDS: ARTIFICAL TEARS 0.4 ML UNIT DOSE (REFRESH PLUS) OD SCH ×2 (08:42→19:40)
[2020-08-01] MEDS: LACTOBACILLUS ACIDOPHILUS (PROBIOTIC) CAPSULE PO SCH (08:43)
[2020-08-01] MEDS: ASCORBIC ACID (VIT C) 500 MG TABLET PO SCH (08:43)
[2020-08-01] MEDS: FAMOTIDINE 20 MG (PEPCID) TABLET PO SCH (08:43)
[2020-08-01] MEDS: BACLOFEN 10 MG (LIORESAL) TAB PO SCH ×2 (08:43→19:42)
[2020-08-01] MEDS: GABAPENTIN 600 MG (NEURONTIN) TAB PO SCH ×3 (08:44→19:41)
[2020-08-01] MEDS: DORZOLAMIDE 2% 10 ML BTL (TRUSOPT) OD SCH ×2 (08:44→19:44)
[2020-08-01] MEDS: metroNIDAZOLE 250 MG (FLAGYL) TAB PO SCH ×2 (08:44→19:40)
[2020-08-01] MEDS ORDERED: FOLIC ACID PO SCH (09:00)
[2020-08-01] MEDS ORDERED: VITAMIN B COMP W C PO SCH (09:00)
[2020-08-01] MEDS ORDERED: [UNRECOGNIZED DRUG - OTHER] PO SCH (09:00)
[2020-08-01] MEDS ORDERED: MIRTAZAPINE 15 MG (REMERON) TAB PO SCH (09:00)
[2020-08-01] MEDS ORDERED: clonazePAM 0.5 MG (KlonoPIN) TAB PO SCH (09:00)
[2020-08-01] MEDS: NON-FORMULARY MEDICATION 1 EA EA (Cranberry Fruit Concentrate (Cranberry) 450 MG) PO SCH (09:00)
[2020-08-01] MEDS ORDERED: buPROPion 75 MG (WELLBUTRIN) TAB PO SCH (09:00)
[2020-08-01] MEDS ORDERED: PATIENT MAY USE OWN MEDS, ALL MC SCH (09:30)
[2020-08-01] MEDS ORDERED: AMLO2.5T4 PO (10:15)
[2020-08-01] MEDS: MYCOPHENOLIC ACID 360 MG PO SCH ×2 (10:20→19:43)
[2020-08-01] MEDS: TACROLIMUS 1 MG (PROGRAF) CAP NON-FORMULARY PO SCH ×2 (10:21→19:43)
[2020-08-01] MEDS: ALOSETRON PO SCH ×2 (10:21→19:45)
--- NOTE | 2020-08-01 11:15 | Progress Note - Hospitalist ---
Subjective HPI/CC On Admission Date Seen by Provider: Aug 01, 2020 Time Seen by Provider: 11:00 CC: UTI and inability to ambulate HPI: This is a 70yoWF clinic patient of [facility] well known to me from prior admits for UTI then IRF for PD disability who presents to the ER with complaints of inability to walk. Patient has severe Parkinson's. Rocephin given empirically. Patient has a h/o life threatening C diff colitis so Flagyl 250mg PO BID ordered. Subjective/Events-last exam at bedside and started talking about how "disorganized the hospital staff is" and "they couldn't even get her med list correctly" and talked to me for 5 minutes about it in more detail. Apologized for the issue Patient having a panic attack currently and asking for her anxiety med Serratia on UCx and maintained on Rocephin since it is appropriate Flagyl 250mg PO BID to prevent C diff colitis Anxious DC Tely Review of Systems General: Fatigue, Malaise Objective Exam Vital Signs Vital Signs Date Time Temp Pulse Resp B/P (MAP) Pulse Ox O2 Delivery O2 Flow Rate FiO2 08/01/20 12:53 73 08/01/20 12:00 36.4 18 133/67 (89) 99 Room Air Capillary Refill : Less Than 3 Seconds General Appearance: No Apparent Distress, WD/WN, Anxious, Chronically ill Respiratory: Chest Non Tender, Lungs Clear, Normal Breath Sounds, No Accessory Muscle Use, No Respiratory Distress Cardiovascular: Regular Rate, Rhythm, No Edema, No Gallop, No JVD, No Murmur, Normal Peripheral Pulses Neurologic/Psychiatric: Alert, Oriented x3, Normal Mood/Affect, Motor Weakness (generalized) Results/Procedures Lab Laboratory Tests 08/01/20 06:09 Patient resulted labs reviewed. Assessment/Plan Assessment and Plan Assess & Plan/Chief Complaint Assessment: UTI Parkinson's disease Falls Renal transplant status h/o C diff colitis Inability to ambulate Plan: IV abx Await UCx PT OT Home meds 08/01/20: Rocephin maintained after UCx finalized with Serratia PT OT Home meds clarified Diagnosis/Problems Diagnosis/Problems (1) UTI (urinary tract infection) (2) Generalized weakness (3) Parkinsons Status: Acute (4) Multiple falls Status: Acute (5) renal transplant patient (6) History of Clostridioides difficile infection JOSEPH DRIVER DO Aug 01, 2020 11:15
[2020-08-01 12:00] VITALS: BP 133/67
[2020-08-01] MEDS: MULTIVIT W/MINERALS TAB (THERAGRAN M) PO SCH (12:14)
[2020-08-01] MEDS: FOLIC ACID 1 MG TAB PO SCH (12:14)
[2020-08-01] MEDS: DICYCLOMINE 20 MG TABLET PO SCH ×3 (12:17→19:41)
[2020-08-01] MEDS: clonazePAM 0.5 MG (KlonoPIN) TAB PO SCH ×2 (12:34→19:50)
[2020-08-01 16:00] VITALS: BP 141/63
[2020-08-01] MEDS: LIVALO 2 MG PO SCH (19:42)
[2020-08-01 20:00] VITALS: BP 122/72
[2020-08-02] VITALS: BP 116/63
[2020-08-02] MEDS: cefTRIAXone 1,000 MG/SWFI 10 ML IV PUSH IV SCH ×2 (05:27)
[2020-08-02] MEDS: MULTIVIT W/MINERALS TAB (THERAGRAN M) PO SCH (06:36)
[2020-08-02 07:04] LABS: MEAN PLATELET VOLUME 10.4 fL (9.0-12.2); WHITE BLOOD COUNT 5.9 10^3/uL (4.3-11.0)
[2020-08-02 07:27] LABS: BILIRUBIN,TOTAL 0.6 MG/DL (0.1-1.0); CALCIUM 9.1 MG/DL (8.5-10.1); CREATININE SERUM 0.93 MG/DL (0.60-1.30); POTASSIUM 3.8 MMOL/L (3.6-5.0)
[2020-08-02 07:44] VITALS: BP 116/71
[2020-08-02] MEDS: ARTIFICAL TEARS 0.4 ML UNIT DOSE (REFRESH PLUS) OD SCH ×2 (08:44→21:50)
[2020-08-02] MEDS: DORZOLAMIDE 2% 10 ML BTL (TRUSOPT) OD SCH ×2 (08:44→21:51)
[2020-08-02] MEDS: ALOSETRON PO SCH ×2 (08:45→21:59)
[2020-08-02] MEDS: MYCOPHENOLIC ACID 360 MG PO SCH ×2 (08:46→21:56)
[2020-08-02] MEDS: DICYCLOMINE 20 MG TABLET PO SCH ×4 (08:48→21:53)
[2020-08-02] MEDS: GABAPENTIN 600 MG (NEURONTIN) TAB PO SCH ×3 (08:49→21:56)
[2020-08-02] MEDS: amLODIPine 2.5MG (NORVASC) TAB PO SCH (08:49)
[2020-08-02] MEDS: BACLOFEN 10 MG (LIORESAL) TAB PO SCH ×2 (08:50→21:54)
[2020-08-02] MEDS: buPROPion 100 MG (WELLBUTRIN) TAB PO SCH (08:50)
[2020-08-02] MEDS: TACROLIMUS 1 MG (PROGRAF) CAP NON-FORMULARY PO SCH ×2 (08:51→21:57)
[2020-08-02] MEDS: FAMOTIDINE 20 MG (PEPCID) TABLET PO SCH (08:59)
[2020-08-02] MEDS: ASCORBIC ACID (VIT C) 500 MG TABLET PO SCH (08:59)
[2020-08-02] MEDS: FOLIC ACID 1 MG TAB PO SCH (08:59)
[2020-08-02] MEDS: ASPIRIN E.C. 81 MG (ECOTRIN) TAB PO SCH ×2 (08:59→21:50)
[2020-08-02] MEDS ORDERED: clonazePAM 0.5 MG (KlonoPIN) TAB PO SCH (09:00)
[2020-08-02] MEDS: clonazePAM 0.5 MG (KlonoPIN) TAB PO SCH ×3 (09:00→22:06)
[2020-08-02] MEDS: LACTOBACILLUS ACIDOPHILUS (PROBIOTIC) CAPSULE PO SCH (09:01)
[2020-08-02] MEDS: metroNIDAZOLE 250 MG (FLAGYL) TAB PO SCH ×2 (09:05→21:50)
--- NOTE | 2020-08-02 10:18 | Physical Therapy Daily Note ---
PT Daily Note-Current Subjective Pt presents asleep in bed upon arrival to room, easy to wake, and agreeable to PT treatment. She denies pain Appearance Following session, pt up in chair with BLE elevated and call light and tray within reach, RN present in room. Mental Status Patient Orientation: Person, Place Transfers SCALE: Activities may be completed with or without assistive devices. 5-Cpevkxphna-aavkhcd completes the activity by him/herself with no assistance from a helper. 5-Set-up or Clean-up Assistance-helper sets up or cleans up; patient completes activity. [place] assists only prior to or following the activity. 4-Supervision or Touching Assistance-helper provides verbal cues and/or touching/steadying and/or contact guard assistance as patient completes activity. Assistance may be provided throughout the activity or intermittently. 3-Partial/Moderate Assistance-helper does LESS THAN HALF the effort. [place] lifts, holds or supports trunk or limbs, but provides less than half the effort. 2-Substantial/Maximal Assistance-helper does MORE THAN HALF the effort. [place] lifts or holds trunk or limbs and provides more than half the effort. 3-Zvsltofml-qelqtw does ALL the effort. Patient does none of the effort to complete the activity. Or, the assistance of 2 or more helpers is required for the patient to complete the activity. If activity was not attempted, code reason: 7-Patient Refused. 9-Not Applicable-not attempted and the patient did not perform the activity before the current illness, exacerbation or injury. 10-Not Attempted due to Environmental Limitations-(lack of equipment, weather restraints, etc.). 88-Not Attempted due to Medical Conditions or Safety Concerns. Roll Left & Right (QC): 5 Lying to Sitting/Side of Bed(Q: 4 Sit to Stand (QC): 5 Toilet Transfer (QC): 5 Gait Training Distance: 150' Walk 150 ft (QC): 4 Gait Assistive Device: FWW CGA with ambulation, no LOB noted. Pt has forward flexed posture throughout gait Treatments Pt requests using bathroom, so she transferred to [facility] with Min A and FWW. She is able to clean herself with min assistance in standing. She then dons brief with (I) and then ambulates in the hallway 150' CGA. Assessment Current Status: Good Progress Pt with good effort this date, only requiring CGA with ambulation. PT Industrial Services Worker Goals Fpc Goals PT Fpc Goals Time Frame: Aug 07, 2020 Roll Left & Right (QC): 6 Sit to Lying (QC): 6 Lying-Sitting on Side/Bed(QC): 6 Sit to Stand (QC): 6 Chair/Cxe-tk-Gzsdq Xfer(QC): 6 Toilet Transfer (QC): 6 Walk 150 ft (QC): 6 PT Plan Problem List Problem List: Activity Tolerance, Functional Strength, Safety, Balance, Gait, Transfer, Bed Mobility, ROM Treatment/Plan Treatment Plan: Continue Plan of Care Treatment Duration: Aug 07, 2020 Frequency: 6 times per week Estimated Hrs Per Day: .5 hour per day Time/GCodes Time In: 830 Time Out: 858 Total Billed Treatment Time: 28 Total Billed Treatment 1 visit FA (15') GT (13') KASSANDRA STOCK PT Aug 02, 2020 10:18
--- NOTE | 2020-08-02 11:24 | Occupational Therapy Eval ---
OT Evaluation-General/PLF Medical Diagnosis Admission Date Jul 31, 2020 at 03:35 Medical Diagnosis: UTI Onset Date: Jul 31, 2020 Therapy Diagnosis Therapy Diagnosis: weakness Height/Weight Height (Feet): 5 Height (Inches): 1.00 Weight (Pounds): 127 Weight (Ounces): 1.0 Precautions Precautions/Isolations: Fall Prevention, Standard Precautions Referral Physician: Chaya Gerber Referral Reason: Evaluation/Treatment Medical History Pertinent Medical History: Atrial Fib, HTN, Neuropathy, Parkinson's, Renal Insufficiency Additional Medical History bilateral kidney transplant, valvular heart disease, DDD, arthritis, parathyroid disease, glaucoma, [place] (R hearing aide), L cochlear implant, L eye removal. Social History Home: Single Level Current Living Status: Spouse Entry Into Home: Level Entry ADL-Prior Level of Function SCALE: Activities may be completed with or without assistive devices. 7-Schbuctpms-vfbvtuz completes the activity by him/herself with no assistance from a helper. 5-Set-up or Clean-up Assistance-helper sets up or cleans up; patient completes activity. [place] assists only prior to or following the activity. 4-Supervision or Touching Assistance-helper provides verbal cues and/or touching/steadying and/or contact guard assistance as patient completes activity. Assistance may be provided throughout the activity or intermittently. 3-Partial/Moderate Assistance-helper does LESS THAN HALF the effort. [place] lifts, holds or supports trunk or limbs, but provides less than half the effort. 2-Substantial/Maximal Assistance-helper does MORE THAN HALF the effort. [place] lifts or holds trunk or limbs and provides more than half the effort. 0-Zmldtvxcx-urdsxe does ALL the effort. Patient does none of the effort to complete the activity. Or, the assistance of 2 or more helpers is required for the patient to complete the activity. If activity was not attempted, code reason: 7-Patient Refused. 9-Not Applicable-not attempted and the patient did not perform the activity before the current illness, exacerbation or injury. 10-Not Attempted due to Environmental Limitations-(lack of equipment, weather restraints, etc.). 88-Not Attempted due to Medical Conditions or Safety Concerns. ADL PLOF Comments Pt reports independent with ADLs at OF. She was able to shower herself, although her helped her in/out of tub/shower. She has tried a shower chair in the tub, but it does not fit due to tub being narrow. Self Care: Independent Functional Cognition: Independent DME/Equipment: Tub/Shower OT Current Status Subjective Pt seated in recliner, agreeable to OT tx. Pt denies pain. Pt indicates she does not have any concerns at this moment about her ability to complete ADLs at home. Mental Status/Objective Patient Orientation: Person, Place, Time, Situation Current Glasses/Contacts: Yes Hearing Aids: Yes Hand Dominance: Right Upper Extremity ROM WFL, BUE shoulder flexion to approx 150 degrees, able to touch back of head with hands. Upper Extremity Coordination WFL Upper Extremity Sensation WFL, pt denies tingling/numbness Upper Extremity Strength grossly 4/5 ADL-Treatment Eating (QC): 6 (Pt reports no difficulty with task.) Oral Hygiene (QC): 7 Shower/Bathe Self (QC): 7 On/Off Footwear (QC): 6 (Pt donned/doffed gripper socks seated at recliner.) Toileting Hygiene (QC): 7 Other Treatments Pt seated in recliner. OT eval complete, pt provided information about PLOF and home set up, then participated in UE screen. Pt declined ADLs at this time, but agreeable to UE exercise. In order to increase BUE strength/activity tolerance, pt completed x15 reps of the following BUE exercises: shoulder flexion, elbow fl exion/extension, and finger flexion/extension. Pt demo'd and verbalized understanding of exercises. Pt then doffed/donned gripper socks independently. Pt declined toileting at this time. Post tx, pt seated in recliner, call light in reach and all needs met. Education OT Patient Education: Correct positioning, Energy conservation, Modified ADL techniques, Progress toward Goal/Update tx plan, Purpose of tx/functional activities, Rehab process Teaching Recipient: Patient Teaching Methods: Demonstration, Discussion Response to Teaching: Verbalize Understanding, Return Demonstration OT Longterm Goals Longterm Goals Time Frame: Aug 09, 2020 Eating (QC): 6 Oral Hygiene (QC): 6 Toileting Hygiene (QC): 6 Shower/Bathe Self (QC): 6 Upper Body Dressing (QC): 6 Lower Body Dressing (QC): 6 On/Off Footwear (QC): 6 Additional Goals: 1-Demonstrate ADL Tasks, 2-Verbalize Understanding, 3- ImproveStrength/Jose 1=Demonstrate adherence to instructed precautions during ADL tasks. 2=Patient will verbalize/demonstrate understanding of assistive devices/modifications for ADL. 3=Patient will improve strength/tolerance for activity to enable patient to perform ADL's. OT Education/Plan Problem List/Assessment Assessment: Decreased Activ Tolerance, Decreased UE Strength, Impaired I ADL's Pt would benefit from short term skilled OT services in order to increase BUE strength/activity tolerance, and increase safety and independence with ADLs to maximize LOF for safe return home. Discharge Recommendations Plan/Recommendations: Continue POC Therapy Discharge Recommendati: Home & Family Treatment Plan/Plan of Care Patient would benefit from OT for education, treatment and training to promote independence in ADL's, mobility, safety and/or upper extremity function for ADL's. Plan of Care: ADL Retraining, Functional Mobility, UE Funct Exercise/Act Treatment Duration: Aug 09, 2020 Frequency: 5 times per week Estimated Hrs Per Day: .25 hour per day Rehab Potential: Good Time/GCodes Start Time: 10:42 Stop Time: 10:53 Total Time Billed (hr/min): 11 Billed Treatment Time 1, DOYLE NIELSEN OT Aug 02, 2020 11:24
[2020-08-02] MEDS ORDERED: FOLI0.8T2 PO (14:01)
[2020-08-02 15:39] VITALS: BP 124/57
--- NOTE | 2020-08-02 16:26 | Progress Note ---
Subjective Subjective/Events-last exam Patient doing well this AM. States that she feels better and walked to nurses station and feels like she is at her baseline and would like to go home and not to rehab. Tolerating PO diet and ambulation. Review of Systems General: No Chills; Fatigue; No Malaise Pulmonary: No Dyspnea, No Cough Cardiovascular: No: Chest Pain, Palpitations Gastrointestinal: Diarrhea; No: Nausea, Vomiting, Abdominal Pain Genitourinary: No Dysuria; Frequency; No Hematuria Neurological: Weakness, Incoordination Objective Exam Last Set of Vital Signs Vital Signs Date Time Temp Pulse Resp B/P (MAP) Pulse Ox O2 Delivery O2 Flow Rate FiO2 08/02/20 15:39 36.8 71 19 124/57 (79) 99 Room Air Capillary Refill : Less Than 3 Seconds I&O Intake and Output 08/02/20 00:00 Intake Total 860 ml Output Total 300 ml Balance 560 ml Intake Oral 850 ml IV Total 10 ml Output Urine Total 300 ml # Voids 5 # Bowel Movements 3 General: Alert, Oriented X3, No Acute Distress HEENT: Mucous Memb Moist/[place] Lungs: Clear to Auscultation, Normal Air Movement Heart: Regular Rate, No Murmurs Abdomen: Normal Bowel Sounds, Soft, No Tenderness, No Masses Extremities: No Edema, No Tenderness/Swelling Neuro: Normal Speech, Sensation Intact, Cranial Nerves 3-12 NL Results/Procedures Lab Laboratory Tests 08/02/20 06:55: White Blood Count 5.9, Red Blood Count 4.68, Hemoglobin 14.0, Hematocrit 41, Mean Corpuscular Volume 87, Mean Corpuscular Hemoglobin 30, Mean Corpuscular Hemoglobin Concent 34, Red Cell Distribution Width 13.2, Platelet Count 183, Mean Platelet Volume 10.4, Sodium Level 141, Potassium Level 3.8, Chloride Level 109H, Carbon Dioxide Level 22, Anion Gap 10, Blood Urea Nitrogen 21H, Creatinine 0.93, Estimat Glomerular Filtration Rate 60, BUN/Creatinine Ratio 23, Glucose Level 95, Calcium Level 9.1, Corrected Calcium 9.1, Total Bilirubin 0.6, Aspartate Amino Transf (AST/SGOT) 17, Alanine Aminotransferase (ALT/SGPT) 11, Alkaline Phosphatase 76, Total Protein 7.0, Albumin 4.0 Microbiology 07/31/20 Urine Culture - Final, Complete Serratia marcescens Assessment/Plan Assessment/Plan (1) Urinary tract infection Status: Acute Assessment & Plan: 08/02: Serratia on culture, continue antibiotics for complicated UTI given h/o renal transplant Qualifiers: Qualified Codes: N30.00 - Acute cystitis without hematuria (2) Anxiety Status: Chronic Assessment & Plan: 08/02: Continue home meds (3) Diarrhea Status: Acute Assessment & Plan: 08/02: given h/o life threatening C diff will get stool culture, placed on ppx flagyl over the weekend, continue to monitor Qualifiers: Qualified Codes: R19.7 - Diarrhea, unspecified (4) Parkinsons disease Status: Chronic (5) Multiple falls Status: Chronic (6) History of Clostridioides difficile infection (7) renal transplant patient (8) Debility Assessment & Plan: - Patient states that she would like to go home after this admission and not to rehab (9) DVT prophylaxis Assessment & Plan: - ERIN Laughlin MD Aug 02, 2020 16:26
[2020-08-02] MEDS ORDERED: MIRTAZAPINE 7.5 MG TABLET PO SCH (21:00)
[2020-08-02] MEDS: LIVALO 2 MG PO SCH (21:54)
[2020-08-03] VITALS: BP 141/66
[2020-08-03 01:08] VITALS: BP 141/66
[2020-08-03] MEDS: cefTRIAXone 1,000 MG/SWFI 10 ML IV PUSH IV SCH ×2 (04:37)
[2020-08-03 05:45] LABS: BASOPHILS % (AUTO) 1 % (0-10); EOSINOPHILS # (AUTO) 0.1 10^3/uL (0.0-0.3); EOSINOPHILS % (AUTO) 2 % (0-10); HEMATOCRIT 40 % (35-52); HEMOGLOBIN 13.6 g/dL (11.5-16.0); LYMPHOCYTES # (AUTO) 1.4 10^3/uL (1.0-4.0); LYMPHOCYTES % (AUTO) 22 % (12-44); MEAN CORPUSCULAR HEMOGLOBIN 30 pg (25-34); MEAN CORPUSCULAR HGB CONC 34 g/dL (32-36); MEAN CORPUSCULAR VOLUME 87 fL (80-99); MEAN PLATELET VOLUME 10.9 fL (9.0-12.2); MONOCYTES # (AUTO) 0.5 10^3/uL (0.0-1.0); MONOCYTES % (AUTO) 8 % (0-12); NEUTROPHILS # (AUTO) 4.2 10^3/uL (1.8-7.8); NEUTROPHILS % (AUTO) 68 % (42-75); PLATELET COUNT 189 10^3/uL (130-400); WHITE BLOOD COUNT 6.2 10^3/uL (4.3-11.0)
[2020-08-03 05:57] LABS: CHLORIDE 108 MMOL/L (98-107); POTASSIUM 4.2 MMOL/L (3.6-5.0)
[2020-08-03 05:58] LABS: SODIUM 142 MMOL/L (135-145)
[2020-08-03 05:59] LABS: CALCIUM 8.7 MG/DL (8.5-10.1); GLUCOSE 94 MG/DL (70-105)
[2020-08-03 06:01] LABS: CARBON DIOXIDE 20 MMOL/L (21-32)
[2020-08-03 06:03] LABS: CREATININE SERUM 0.84 MG/DL (0.60-1.30); GFR ESTIMATED > 60
[2020-08-03 06:04] LABS: BUN/CREATININE RATIO 24
[2020-08-03] MEDS: MULTIVIT W/MINERALS TAB (THERAGRAN M) PO SCH (06:34)
[2020-08-03 08:00] VITALS: BP 133/75
[2020-08-03] MEDS: LACTOBACILLUS ACIDOPHILUS (PROBIOTIC) CAPSULE PO SCH (08:36)
[2020-08-03] MEDS: metroNIDAZOLE 250 MG (FLAGYL) TAB PO SCH (08:36)
[2020-08-03] MEDS: ASPIRIN E.C. 81 MG (ECOTRIN) TAB PO SCH (08:36)
[2020-08-03] MEDS: FOLIC ACID 1 MG TAB PO SCH (08:36)
[2020-08-03] MEDS: ASCORBIC ACID (VIT C) 500 MG TABLET PO SCH (08:36)
[2020-08-03] MEDS: FAMOTIDINE 20 MG (PEPCID) TABLET PO SCH (08:37)
[2020-08-03] MEDS: MYCOPHENOLIC ACID 360 MG PO SCH (08:38)
[2020-08-03] MEDS: DICYCLOMINE 20 MG TABLET PO SCH (08:39)
[2020-08-03] MEDS: BACLOFEN 10 MG (LIORESAL) TAB PO SCH (08:40)
[2020-08-03] MEDS: GABAPENTIN 600 MG (NEURONTIN) TAB PO SCH (08:40)
[2020-08-03] MEDS: TACROLIMUS 1 MG (PROGRAF) CAP NON-FORMULARY PO SCH (08:40)
[2020-08-03] MEDS: buPROPion 100 MG (WELLBUTRIN) TAB PO SCH (08:41)
[2020-08-03] MEDS: ALOSETRON PO SCH (08:42)
[2020-08-03] MEDS: amLODIPine 2.5MG (NORVASC) TAB PO SCH (08:42)
[2020-08-03] MEDS: DORZOLAMIDE 2% 10 ML BTL (TRUSOPT) OD SCH (08:43)
[2020-08-03] MEDS: ARTIFICAL TEARS 0.4 ML UNIT DOSE (REFRESH PLUS) OD SCH (08:43)
[2020-08-03] MEDS: clonazePAM 0.5 MG (KlonoPIN) TAB PO SCH (09:44)
--- NOTE | 2020-08-03 10:24 | Physical Therapy Daily Note ---
PT Daily Note-Current Subjective Patient agrees to PT. No c/o. Mental Status Patient Orientation: Person, Time, Situation Transfers SCALE: Activities may be completed with or without assistive devices. 3-Cqtqawvjrr-akrvawe completes the activity by him/herself with no assistance fr om a helper. 5-Set-up or Clean-up Assistance-helper sets up or cleans up; patient completes activity. [place] assists only prior to or following the activity. 4-Supervision or Touching Assistance-helper provides verbal cues and/or touching/steadying and/or contact guard assistance as patient completes activity. Assistance may be provided throughout the activity or intermittently. 3-Partial/Moderate Assistance-helper does LESS THAN HALF the effort. [place] lifts, holds or supports trunk or limbs, but provides less than half the effort. 2-Substantial/Maximal Assistance-helper does MORE THAN HALF the effort. [place] lifts or holds trunk or limbs and provides more than half the effort. 2-Lrbqjghhn-xrajhk does ALL the effort. Patient does none of the effort to complete the activity. Or, the assistance of 2 or more helpers is required for the patient to complete the activity. If activity was not attempted, code reason: 7-Patient Refused. 9-Not Applicable-not attempted and the patient did not perform the activity before the current illness, exacerbation or injury. 10-Not Attempted due to Environmental Limitations-(lack of equipment, weather restraints, etc.). 88-Not Attempted due to Medical Conditions or Safety Concerns. Sit to Stand (QC): 4 Gait Training Does the Patient Walk?: Yes Distance: 400' Walk 10 feet (QC): 4 Walk 50 ft with 2 Turns(QC): 4 Walk 150 ft (QC): 4 Gait Assistive Device: FWW safe and functional with no deviation Exercises Seated Therapy Exercises: Ankle pumps, Long arc quads, Hip flexion, Hip abd/add Seated Reps: 15 (2 sets) Assessment Patient does fatigue with activity and requires 2 standing recovery periods. Patient SBA for safety. PT [facility] Goals Health Program Director Goals PT Health Program Director Goals Time Frame: Aug 07, 2020 Roll Left & Right (QC): 6 Sit to Lying (QC): 6 Lying-Sitting on Side/Bed(QC): 6 Sit to Stand (QC): 6 Chair/Xzx-tj-Fhqjo Xfer(QC): 6 Toilet Transfer (QC): 6 Walk 150 ft (QC): 6 PT Plan Treatment/Plan Treatment Plan: Continue Plan of Care Treatment Duration: Aug 07, 2020 Frequency: 6 times per week Estimated Hrs Per Day: .5 hour per day Time/GCodes Time In: 934 Time Out: 957 Total Billed Treatment Time: 23 Total Billed Treatment 1 visit EX 8 min GT 15 min SARIAH VALLADARES PT Aug 03, 2020 10:24
--- NOTE | 2020-08-03 10:54 | Discharge Summary ---
Discharge Summary Reconcile Patient Problems Problems Reviewed?: Yes Instructions for Patient Via [facility], Assessment/Instructions Improved strength and coordination Complete antibiotics for UTI Physician to follow Patient: Heurter Discharge Diet for Home: other diet (Renal Diet) Hospital Course Date of Admission: Jul 31, 2020 at 03:35 Admission Diagnosis : Family Physician/Provider: Rosas Caban Aprn Date of Discharge: 08/03/20 Discharge Diagnosis: Complicated UTI [place]'s Disease Debility H/o Renal Transplant h/o Life threatening C. Diff infection Hospital Course: 70 yo F with h/o renal transplant that was admitted with UTI and mild confusion. Patient at baseline at time of discharge. Culture shows suceptibility to Rocephin. Patient has had multiple recent admissions and has become weak and has significant debility. IRF referral placed and patient was denied. Will send patient home with . Labs and Pending Lab Test: Laboratory Tests 08/03/20 05:32: White Blood Count 6.2, Red Blood Count 4.60, Hemoglobin 13.6, Hematocrit 40, Mean Corpuscular Volume 87, Mean Corpuscular Hemoglobin 30, Mean Corpuscular Hemoglobin Concent 34, Red Cell Distribution Width 13.0, Platelet Count 189, Mean Platelet Volume 10.9, Immature Granulocyte % (Auto) 1, Neutrophils (%) (Auto) 68, Lymphocytes (%) (Auto) 22, Monocytes (%) (Auto) 8, Eosinophils (%) (A uto) 2, Basophils (%) (Auto) 1, Neutrophils # (Auto) 4.2, Lymphocytes # (Auto) 1.4, Monocytes # (Auto) 0.5, Eosinophils # (Auto) 0.1, Basophils # (Auto) 0.0, Immature Granulocyte # (Auto) 0.0, Sodium Level 142, Potassium Level 4.2, Chloride Level 108H, Carbon Dioxide Level 20L, Anion Gap 14, Blood Urea Nitrogen 20H, Creatinine 0.84, Estimat Glomerular Filtration Rate > 60, BUN/Creatinine Ratio 24, Glucose Level 94, Calcium Level 8.7 Microbiology 07/31/20 Urine Culture - Final, Complete Serratia marcescens Home Meds Active Reported Nephro-Rodrick Tablet (Folic Acid/Vitamin B Comp W-C) 0.8 Mg Tablet 0.8 Mg PO DAILY Amlodipine Besylate 2.5 Mg Tablet 2.5 Mg PO DAILY Mirtazapine 7.5 Mg Tablet 7.5 Mg PO HS Lotronex (Alosetron HCl) 0.5 Mg Tab 0.5 Mg PO BID Restasis (Cyclosporine) 1 Each Droperette 1 Each OD BID Livalo (Pitavastatin Calcium) 1 Mg Tablet 2 Mg PO DAILY Dicyclomine HCl 20 Mg Tablet 10 Mg PO QID TAKES 1/2 OF A 20MG TAB Bupropion HCl 100 Mg Tablet 100 Mg PO DAILY Gabapentin 600 Mg Tablet 600 Mg PO TID Mycophenolic Acid (Mycophenolate Sodium) 360 Mg Tablet.dr 360 Mg PO BID Flonase Allergy Relief (Fluticasone Propionate) 9.9 Ml [place].susp 2 [place] NS DAILY PRN Baclofen 10 Mg Tablet 5 Mg PO BID TAKES 1/2 OF A 10MG TAB Clonazepam 0.5 Mg Tablet 0.25 Mg PO DAILY PRN TAKES 1/2 OF A 0.5MG TAB Acid [place] (FAMOTIDINE) (Famotidine) 20 Mg Tablet 20 Mg PO DAILY Azopt (Brinzolamide) 10 Ml Btl 1 Drop OD BID Cranberry (Cranberry Fruit Concentrate) 450 Mg Capsule 450 Mg PO BID Vitamin C (Ascorbate Calcium) 500 Mg Tablet 500 Mg PO DAILY Adult Low Dose Aspirin EC (Aspirin) 81 Mg Tablet.dr 81 Mg PO BID Prograf (Tacrolimus) 1 Mg Capsule 1 Mg PO BID Probiotic (L.acidoph & Paracasei,B.lactis) 1 Each Capsule 1 Cap PO DAILY Imodium Multi-Symptom Rel Cplt (Loperamide HCl/Simethicone) 1 Each Tablet 1 Tab PO DAILY PRN Patient Allergies: Coded Allergies: codeine (Unverified Allergy, Unknown, 02/12/17) morphine (Verified Allergy, Unknown, NAUSEA, 02/12/17) Height (Feet): 5 Height (Inches): 1.00 Weight (Pounds): 127 Weight (Ounces): 1.0 New Medications: Cefdinir (Cefdinir) 300 Mg Capsule 300 MG PO BID, #4 CAP Metronidazole (Metronidazole) 250 Mg Tablet 250 MG PO BID, #6 TAB Continued Medications: Alosetron HCl (Lotronex) 0.5 Mg Tab 0.5 MG PO BID, TAB Amlodipine Besylate (Amlodipine Besylate) 2.5 Mg Tablet 2.5 MG PO DAILY, TAB Ascorbate Calcium (Vitamin C) 500 Mg Tablet 500 MG PO DAILY, TAB Aspirin (Adult Low Dose Aspirin EC) 81 Mg Tablet.dr 81 MG PO BID, TAB Baclofen (Baclofen) 10 Mg Tablet 5 MG PO BID, TAB TAKES 1/2 OF A 10MG TAB Brinzolamide (Azopt) 10 Ml Btl 1 DROP OD BID, EA Bupropion HCl (Bupropion HCl) 100 Mg Tablet 100 MG PO DAILY, TAB Clonazepam (Clonazepam) 0.5 Mg Tablet 0.25 MG PO DAILY PRN for ANXIETY, TAB TAKES 1/2 OF A 0.5MG TAB Cranberry Fruit Concentrate (Cranberry) 450 Mg Capsule 450 MG PO BID, CAP Cyclosporine (Restasis) 1 Each Droperette 1 EACH OD BID, DROP Dicyclomine HCl (Dicyclomine HCl) 20 Mg Tablet 10 MG PO QID, TAB TAKES 1/2 OF A 20MG TAB Famotidine (Acid [place] (FAMOTIDINE)) 20 Mg Tablet 20 MG PO DAILY, TAB Fluticasone Propionate (Flonase Allergy Relief) 9.9 Ml [place].susp 2 SPRAY NS DAILY PRN for CONGESTION, EACH Folic Acid/Vitamin B Comp W-C (Nephro-[place] Tablet) 0.8 Mg Tablet 0.8 MG PO DAILY, TAB Gabapentin (Gabapentin) 600 Mg Tablet 600 MG PO TID, TAB L.acidoph & Paracasei,B.lactis (Probiotic) 1 Each Capsule 1 CAP PO DAILY, TAB Loperamide HCl/Simethicone (Imodium Multi-Symptom Rel Cplt) 1 Each Tablet 1 TAB PO DAILY PRN for DIARRHEA, TAB Mirtazapine (Mirtazapine) 7.5 Mg Tablet 7.5 MG PO HS, TAB Mycophenolate Sodium (Mycophenolic Acid) 360 Mg Tablet.dr 360 MG PO BID, TAB Pitavastatin Calcium (Livalo) 1 Mg Tablet 2 MG PO DAILY, TAB Tacrolimus (Prograf) 1 Mg Capsule 1 MG PO BID, CAP Home Health Need/Face to Face Date of Face to Face: Aug 03, 2020 Clinical Findings: Generalized weakness and fatigue, Immune-compromised, Unsteady gait I have seen Pt auay-[id number]: Yes Discharged To: Home Diagnosis/Conditions: UTI Debility Multiple falls Patient is Homebound due to: [place] fall risk due to instabilty, Muscle weakness Homebound Status Due to the above stated illness, injury or surgical procedure (medical condition or diagnosis) and associated clinical findings, the patient is homebound because of his/her inability to leave home except with aid of a supportive device and/or person AND leaving the home requires a considerable and taxing effort or is medically contraindicated. Pt req the following assistanc: Aid of another person Home Health Nursing Orders Home Health Services Order: Nursing Services, Sales Representative Sales Manager-Evaluate & Treat, Physical Therapy-Evaluate & Treat Home Health Infusion Therapy Line Start Date: Jul 31, 2020 Certify Stmt I certify that this patient is under my care and that I, a nurse practitioner or a physician; a culture media laboratory assistant working with me, had a face to face encounter that - meets the physician face to face encounter requirements with this patient as dated. Discharge Physical Exam General: Alert, Oriented X3, No Acute Distress HEENT: Mucous Memb Moist/[place] Lungs: Clear to Auscultation, Normal Air Movement Heart: Regular Rate, No Murmurs Abdomen: Normal Bowel Sounds, Soft, No Tenderness, No Masses Extremities: No Edema, No Tenderness/Swelling Neuro: Sensation Intact ERIN ROGERS MD Aug 03, 2020 10:54
[2020-08-03] MEDS ORDERED: CEFD300C3 PO (10:57)
[2020-08-03] MEDS ORDERED: METR-143 PO (10:57)
--- NOTE | 2020-08-03 11:32 | Occupational Ther Daily Note ---
OT Current Status-Daily Note Subjective Pt reported no pain and agreeable to OT tx. present post tx. Mental Status/Objective Patient Orientation: Person, Place, Time, Situation ADL-Treatment Therapy Code Descriptions/Definitions Functional [place] Measure: 0=Not Assessed/NA 4=Minimal Assistance 1=Total Assistance 5=Supervision or Setup 2=Maximal Assistance 6=Modified [place] 3=Moderate Assistance 7=Complete IndependenceSCALE: Activities may be completed with or without assistive devices. 6-Moektfjckt-gshpgtd completes the activity by him/herself with no assistance from a helper. 5-Set-up or Clean-up Assistance-helper sets up or cleans up; patient completes activity. [place] assists only prior to or following the activity. 4-Supervision or Touching Assistance-helper provides verbal cues and/or touching/steadying and/or contact guard assistance as patient completes activity. Assistance may be provided throughout the activity or intermittently. 3-Partial/Moderate Assistance-helper does LESS THAN HALF the effort. [place] lifts, holds or supports trunk or limbs, but provides less than half the effort. 2-Substantial/Maximal Assistance-helper does MORE THAN HALF the effort. [place] lifts or holds trunk or limbs and provides more than half the effort. 5-Pisceycxf-aoswje does ALL the effort. Patient does none of the effort to complete the activity. Or, the assistance of 2 or more helpers is required for the patient to complete the activity. If activity was not attempted, code reason: 7-Patient Refused. 9-Not Applicable-not attempted and the patient did not perform the activity before the current illness, exacerbation or injury. 10-Not Attempted due to Environmental Limitations-(lack of equipment, weather restraints, etc.). 88-Not Attempted due to Medical Conditions or Safety Concerns. Bathing Location: L Arm, R Arm, L Upper Leg, R Upper Leg, L Lower Leg (including foot), R Lower Leg (including foot), Chest, Abdomen, Buttocks, Perineal Area Shower/Bathe Self (QC): 4 (CGA for standing while washing buttocks) Upper Body Dressing (QC): 5 (Set up) Lower Body Dressing (QC): 4 (CGA for standing to perform pants hike) On/Off Footwear: 6 (Ind) Other Treatment Pt began tx in recliner and agreeable to shower. Pt ambulated to shower with FWW at CGA. Pt showered all body parts and stood at [facility] to wash buttocks. Upon finishing, pt transferred to chair and donned clothing. Pt then ambulated out of shower to recliner. Pt in recliner with call light in reach with all needs met at end of tx. Education OT Patient Education: Correct positioning, Energy conservation, Modified ADL techniques, Progress toward Goal/Update tx plan, Purpose of tx/functional activities Teaching Recipient: Patient Teaching Methods: Discussion Response to Teaching: Verbalize Understanding OT Tensile Tester Goals Fpc Goals Time Frame: Aug 09, 2020 Eating (QC): 6 Oral Hygiene (QC): 6 Toileting Hygiene (QC): 6 Shower/Bathe Self (QC): 6 Upper Body Dressing (QC): 6 Lower Body Dressing (QC): 6 On/Off Footwear (QC): 6 Additional Goals: 1-Demonstrate ADL Tasks, 2-Verbalize Understanding, 3- ImproveStrength/Jose 1=Demonstrate adherence to instructed precautions during ADL tasks. 2=Patient will verbalize/demonstrate understanding of assistive devices/modifications for ADL. 3=Patient will improve strength/tolerance for activity to enable patient to perform ADL's. OT Education/Plan Problem List/Assessment Assessment: Decreased UE Strength, Impaired Funct Balance, Impaired Self-Care Skills Pt would benefit from short term skilled OT services in order to increase BUE strength/activity tolerance, and increase safety and independence with ADLs to maximize LOF for safe return home. Discharge Recommendations Plan/Recommendations: Continue POC Treatment Plan/Plan of Care Patient would benefit from OT for education, treatment and training to promote independence in ADL's, mobility, safety and/or upper extremity function for ADL's. Plan of Care: ADL Retraining, Functional Mobility, UE Funct Exercise/Act Treatment Duration: Aug 09, 2020 Frequency: 5 times per week Estimated Hrs Per Day: .25 hour per day Rehab Potential: Good Time/GCodes Start Time: 11:00 Stop Time: 11:25 Total Time Billed (hr/min): 25 Billed Treatment Time 1, ADL 2 (25') DOYLE FELIX OT Aug 03, 2020 11:32
== END 2020-08-03 12:15 | disposition home health service (06) | DRG 690 ==
LOC: EDUNIT# 02:24 → ER 02:28 → 4TH 03:35
PROVIDERS: ADMIT Internal Medicine; ATTEND Family Medicine
DX: N39.0 Urinary tract infection, site not specified (principal); Z94.0 Kidney transplant status; G20 Parkinson's disease; I48.0 Paroxysmal atrial fibrillation; I11.0 Hypertensive heart disease with heart failure; F41.0 Panic disorder [episodic paroxysmal anxiety]; I50.9 Heart failure, unspecified; E78.00 Pure hypercholesterolemia, unspecified; Z20.822 Contact with and (suspected) exposure to COVID-19; M19.91 Primary osteoarthritis, unspecified site; M54.9 Dorsalgia, unspecified; F32.9 Major depressive disorder, single episode, unspecified; R19.7 Diarrhea, unspecified; H91.92 Unspecified hearing loss, left ear; Z90.5 Acquired absence of kidney; Z86.19 Personal history of other infectious and parasitic diseases; Z91.81 History of falling; Z96.21 Cochlear implant status; Z95.3 Presence of xenogenic heart valve; Z87.01 Personal history of pneumonia (recurrent); Z85.528 Personal history of other malignant neoplasm of kidney; Z79.82 Long term (current) use of aspirin; Z88.6 Allergy status to analgesic agent; W06.XXXA Fall from bed, initial encounter; Y92.003 Bedroom of unspecified non-institutional (private) residence as the place of occurrence of the external cause; W18.11XA Fall from or off toilet without subsequent striking against object, initial encounter; Y92.002 Bathroom of unspecified non-institutional (private) residence as the place of occurrence of the external cause
CPT/HCPCS: 36415; 51701; 71045; 80048; 80053; 81000; 82550; 82553; 82962; 83735; 83874; 84145; 84484; 85025; 85027; 85610; 85730; 87077; 87088; 87186; 87635; 93005; 93041

== ENCOUNTER 2020-08-12 16:16 | Inpatient (IN) | payer MEDICARE, OTHER ==
[~2020-08-12] VITALS: Ht 152 cm; Wt 55.3 kg
[~2020-08-12 16:16] MED LIST changes: +CEFD300C3 PO; +MIRT7.5T8 PO
--- NOTE | 2020-08-12 16:31 | ED General ---
General Chief Complaint: General Problems/Pain Stated Complaint: UTI SYM / FALL Source of Information: Patient, EMS, Family Exam Limitations: No Limitations (CARLA HDZ MD) History of Present Illness Date Seen by Provider: Aug 12, 2020 Time Seen by Provider: 16:20 Initial Comments Patient is a 70-year-old female who presents to the emergency department today with a chief complaint of generalized weakness. Patient has a history of renal transplant 7 years ago at [facility] in [place]. Patient states that she is a community health patient. She recently had a urinary tract infection and was in the hospital for a couple of days. She was discharged home after insurance quit paying for her admission reportedly. The is present and provides the rest of the history and states that he feels like she was discharged too early. He states that she is too weak at home to be able to manage on her own. She does walk with a walker. Reportedly this afternoon the patient was assisted to the bathroom by her children and when she was attempting to get off the toilet she was too weak to stand. when she attempted to stand she fell over. She denies injuring herself. Patient states that when she attempted to stand a second time she was just too weak to stand and that is when family called for EMS. Patient adamantly denies any complaints of injury. She is not having any URI type symptoms. No sore throat rhinorrhea or congestion. She denies shortness of breath or cough. She denies chest pain abdominal pain nausea, vomiting. She denies dysuria, urgency or frequency although states that she is urinating less because she has not been eating and drinking as much. Her states that she does not usually know when she has a urinary tract infection she just becomes very weak and her legs do not work. states that she did have a urinalysis done this week which showed that her urinary tract infection had "cleared". All other review of systems reviewed and negative except as stated. Timing/Duration: 1 Day Severity: Moderate Associated Systoms: Denies Symptoms (CARLA HDZ MD) Allergies and Home Medications Allergies Coded Allergies: codeine (Unverified Allergy, Unknown, 02/12/17) morphine (Verified Allergy, Unknown, NAUSEA, 02/12/17) Home Medications Alosetron HCl 0.5 Mg Tab, 0.5 MG PO BID, (Reported) Amlodipine Besylate 2.5 Mg Tablet, 2.5 MG PO DAILY, (Reported) Ascorbate Calcium 500 Mg Tablet, 500 MG PO DAILY, (Reported) Aspirin 81 Mg Tablet.dr, 81 MG PO BID, (Reported) Baclofen 10 Mg Tablet, 5 MG PO BID, (Reported) TAKES 1/2 OF A 10MG TAB Brinzolamide 10 Ml Btl, 1 DROP OD BID, (Reported) Bupropion HCl 100 Mg Tablet, 100 MG PO DAILY, (Reported) Cefdinir 300 Mg Capsule, 300 MG PO BID Prescribed by: ERIN ROGERS on 08/03/20 105 Clonazepam 0.5 Mg Tablet, 0.25 MG PO DAILY PRN for ANXIETY, (Reported) TAKES 1/2 OF A 0.5MG TAB Cranberry Fruit Concentrate 450 Mg Capsule, 450 MG PO BID, (Reported) Cyclosporine 1 Each Droperette, 1 EACH OD BID, (Reported) Dicyclomine HCl 20 Mg Tablet, 10 MG PO QID, (Reported) TAKES 1/2 OF A 20MG TAB Famotidine 20 Mg Tablet, 20 MG PO DAILY, (Reported) Fluticasone Propionate 9.9 Ml [place].susp, 2 SPRAY NS DAILY PRN for CONGESTION, (Reported) Folic Acid/Vitamin B Comp W-C 0.8 Mg Tablet, 0.8 MG PO DAILY, (Reported) Gabapentin 600 Mg Tablet, 600 MG PO TID, (Reported) L.acidoph & Paracasei,B.lactis 1 Each Capsule, 1 CAP PO DAILY, (Reported) Loperamide HCl/Simethicone 1 Each Tablet, 1 TAB PO DAILY PRN for DIARRHEA, (Reported) Metronidazole 250 Mg Tablet, 250 MG PO BID Prescribed by: ERIN ROGERS on 08/03/20 1057 Mirtazapine 7.5 Mg Tablet, 7.5 MG PO HS, (Reported) Mycophenolate Sodium 360 Mg Tablet.dr, 360 MG PO BID, (Reported) Pitavastatin Calcium 1 Mg Tablet, 2 MG PO DAILY, (Reported) Tacrolimus 1 Mg Capsule, 1 MG PO BID, (Reported) Patient Home Medication List Home Medication List Reviewed: Yes (CARLA HDZ MD) Review of Systems Review of Systems Constitutional: see HPI EENTM: no symptoms reported Respiratory: no symptoms reported; No cough, No phlegm, No short of breath Cardiovascular: no symptoms reported Gastrointestinal: no symptoms reported; No diarrhea, No vomiting Genitourinary: decreased output Musculoskeletal: no symptoms reported Skin: no symptoms reported Psychiatric/Neurological: Weakness (CARLA HDZ MD) All Other Systems Reviewed Negative Unless Noted: Yes (CARLA HDZ MD) Past Uuvuzby-Vrfgxy-Thdsbl Hx Patient Social History 2nd Hand Smoke Exposure: No Recent Hopitalizations: No (DECEMBER 2016-) (CARLA HDZ MD) Immunizations Up To Date Tetanus Booster (TDap): Unknown PED Vaccines UTD: No Date of Pneumonia Vaccine: Jul 30, 2020 Date of Influenza Vaccine: Mar 30, 2020 (CARLA HDZ MD) Seasonal Allergies Seasonal Allergies: Yes (CARLA HDZ MD) Past Medical History Surgeries: Yes (COCHLEAR IMPLANT, CARDIAC ABLATION, AORTIC VALVE, KIDNEY TRANSPLANT) Appendectomy, Cardiac, Dialysis, Ear Surgery, Eye Surgery, Hysterectomy, Kidney Transplant, Nephrectomy, Oophorectomy, Orthopedic, Renal, Tonsillectomy, Valve Replacement Respiratory: Yes Pneumonia Currently Using CPAP: No Currently Using BIPAP: No Cardiac: Yes ( CHF; AORTIC PIG VALVE ; PAROXYSMAL ATRIAL FIB. ) Atrial Fibrillation, High Cholesterol, Hypertension, Irregular Heartbeat, Valvular Heart Disease Neurological: Yes Parkinson's Disease Reproductive Disorders: No UTILITY PERSON History: Hysterectomy, Menopausal Sexually Transmitted Disease: No HIV/AIDS: No Genitourinary: Yes (BILATERAL NEPHRECTOMY AND RENAL TRANSPLANT) Kidney Infection, Renal Failure, Polycystic Kidney Disease Gastrointestinal: Yes (H.PYLORI) Chronic Diarrhea, Polyps, C-Diff Musculoskeletal: Yes (FREQUENT FALLS/USES WALKER) Degenerate Disk Disease, Arthritis, Chronic Back Pain Endocrine: Yes Parathyroid Disease HEENT: Yes (LEFT EYE REMOVED DUE TO UVEITIS; RIGHT COCHLEAR IMPLANT) Cataract, Glaucoma Hearing Impairment: Hard of Hearing, Hearing Aide Left Cancer: Yes Kidney Psychosocial: Yes Anxiety, Depression Integumentary: No Blood Disorders: No Adverse Reaction/Blood Tranf: No (HAS HAD BLOOD WITH NO REACTION) (CARLA HDZ MD) Family Medical History Alzheimer's disease 19 MOTHER (later in life) Dementia 19 MOTHER No Pertinent Family Hx PAST SURGICAL HISTORY: -LEFT EYE REMOVED/ARTIFICIAL EYE DUE TO UVEITIS -RIGHT COCHLEAR IMPLANT -DIALYSIS SHUNT LEFT ARM--DIALYSIS X 4 YEARS -MULTIPLE REVISIONS OF DIALYSIS AV GRAFT -PERITONEAL DIALYSIS SHUNT -BILATERAL NEPHRECTOMY WITH RENAL TRANSPLANT-IN RLQ OF ABDOMEN--6 YEARS AGO--FOR POLYCYSTIC KIDNEY DISEASE -CARDIAC ABLATION -AORTIC VALVE REPLACEMENT WITH PIG VALVE -TONSILLECTOMY -APPENDECTOMY -HYSTERECTOMY/ LATER BSO -CARDIAC CATH 2010--NON-OBSTRUCTIVE DISEASE, NO INTERVENTION -BILATERAL PULMONARY VEIN ABLATION WIHT STAPLE AMPTUATION OF LEFT ATRIAL APPENDAGE AT SAME TIME AORTIC VALVE REPLACEMENT -EGD/COLONOSCOPIES/POLYPECTOMIES -EXCISION OF LEFT HIP HEMATOMA 01/2017 [facility] [place]. (CARLA HDZ MD) Physical Exam-Suspected Sepsis Physical Exam Vital Signs Vital Signs - First Documented 08/12/20 16:19 Temp 37.4 Pulse 87 Resp 18 B/P (MAP) 113/71 (85) Pulse Ox 97 O2 Delivery Room Air (SHIRIN MEHTA DO) Vital Signs Capillary Refill : (CARLA HDZ MD) Height, Weight, BMI Height: 5'1.00" Weight: 127lbs. 1.0oz. 57.217525ty; 23.01 BMI Method:Stated General Appearance: No Apparent Distress, WD/WN, Chronically ill Eyes: Bilateral Eye Normal Inspection, Bilateral Eye PERRL, Bilateral Eye EOMI Respiratory: Lungs Clear, Normal Breath Sounds, No Accessory Muscle Use, No Respiratory Distress Cardiovascular: Regular Rate, Rhythm Gastrointestinal: Normal Bowel Sounds, Non Tender, Soft Extremity: Normal Inspection, Normal Range of Motion, Non Tender, No Pedal Edema Neurologic/Psychiatric: Alert, Oriented x3, No Motor/Sensory Deficits, Normal Mood/Affect, consumer analyst II-XII Norm as Tested Skin: normal color, warm/dry (CARLA HDZ MD) Focused Exam Lactate Level 08/12/20 17:10: Lactic Acid Level 1.23 (SHIRIN MEHTA DO) Lactic Acid Level Laboratory Tests Test 08/12/20 17:10 Lactic Acid Level 1.23 MMOL/L (0.50-2.00) (SHIRIN MEHTA DO) Progress/Results/Core Measures Suspected Sepsis SIRS Temperature: Pulse: Respiratory Rate: Blood Pressure / Mean: (CARLA HDZ MD) Results/Orders Lab Results Laboratory Tests Test 08/12/20 16:52 08/12/20 17:10 08/12/20 18:33 Range/Units Coronavirus 2019 (STACIA) Negative Negative White Blood Count 19.8 H 4.3-11.0 10^3/uL Red Blood Count 4.90 3.80-5.11 10^6/uL Hemoglobin 14.7 11.5-16.0 g/dL Hematocrit 44 35-52 % Mean Corpuscular Volume 90 80-99 fL Mean Corpuscular Hemoglobin 30 25-34 pg Mean Corpuscular Hemoglobin Concent 34 32-36 g/dL Red Cell Distribution Width 13.4 10.0-14.5 % Platelet Count 175 130-400 10^3/uL Mean Platelet Volume 10.4 9.0-12.2 fL Immature Granulocyte % (Auto) 1 % Neutrophils (%) (Auto) 78 H 42-75 % Lymphocytes (%) (Auto) 3 L 12-44 % Monocytes (%) (Auto) 2 0-12 % Eosinophils (%) (Auto) 16 H 0-10 % Basophils (%) (Auto) 0 0-10 % Neutrophils # (Auto) 15.4 H 1.8-7.8 10^3/uL Lymphocytes # (Auto) 0.6 L 1.0-4.0 10^3/uL Monocytes # (Auto) 0.4 0.0-1.0 10^3/uL Eosinophils # (Auto) 3.2 H 0.0-0.3 10^3/uL Basophils # (Auto) 0.0 0.0-0.1 10^3/uL Immature Granulocyte # (Auto) 0.2 H 0.0-0.1 10^3/uL Neutrophils % (Manual) 96 % Lymphocytes % (Manual) 3 % Monocytes % (Manual) 1 % Blood Morphology Comment NORMAL Sodium Level 135 135-145 MMOL/L Potassium Level 3.9 3.6-5.0 MMOL/L Chloride Level 102 98-107 MMOL/L Carbon Dioxide Level 19 L 21-32 MMOL/L Anion Gap 14 5-14 MMOL/L Blood Urea Nitrogen 17 7-18 MG/DL Creatinine 0.98 0.60-1.30 MG/DL Estimat Glomerular Filtration Rate 56 BUN/Creatinine Ratio 17 Glucose Level 104 70-105 MG/DL Lactic Acid Level 1.23 0.50-2.00 MMOL/L Calcium Level 9.1 8.5-10.1 MG/DL Corrected Calcium 8.8 8.5-10.1 MG/DL Total Bilirubin 0.9 0.1-1.0 MG/DL Aspartate Amino Transf (AST/SGOT) 31 5-34 U/L Alanine Aminotransferase (ALT/SGPT) 23 0-55 U/L Alkaline Phosphatase 74 40-136 U/L C-Reactive Protein High Sensitivity 4.13 H 0.00-0.50 MG/DL Total Protein 8.0 6.4-8.2 GM/DL Albumin 4.4 3.2-4.5 GM/DL Urine Color YELLOW Urine Clarity CLEAR Urine pH 5.5 5-9 Urine Specific [place] 1.025 H 1.016-1.022 Urine Protein NEGATIVE NEGATIVE Urine Glucose (UA) NEGATIVE NEGATIVE Urine Ketones NEGATIVE NEGATIVE Urine Nitrite NEGATIVE NEGATIVE Urine Bilirubin NEGATIVE NEGATIVE Urine Urobilinogen 0.2 < = 1.0 MG/DL Urine Leukocyte Esterase 1+ H NEGATIVE Urine RBC (Auto) NEGATIVE NEGATIVE Urine RBC 2-5 H /HPF Urine WBC 25-50 H /HPF Urine Squamous Epithelial Cells 0-2 /HPF Urine Renal Epithelial Cells RARE /HPF Urine Crystals NONE /LPF Urine Bacteria NEGATIVE /HPF Urine Casts NONE /LPF Urine Mucus NEGATIVE /LPF Urine Culture Indicated NO (SHIRIN MEHTA DO) Micro Results Microbiology 08/12/20 Influenza Types A,B Antigen (IRENE) - Final, Complete (SHIRIN MEHTA DO) My Orders Orders - SHIRIN MEHTA DO Straight Cath For Spec.-Adult (08/12/20 18:13) Meropenem (Merrem 500 Mg) (08/12/20 19:00) Metronidazole Tablet (Flagyl Tablet) (08/12/20 19:00) Urine Culture (08/12/20 19:29) (SHIRIN MEHTA DO) Vital Signs/I&O 08/12/20 08/12/20 16:19 19:32 Temp 37.4 Pulse 87 91 Resp 18 18 B/P (MAP) 113/71 (85) 135/70 Pulse Ox 97 97 O2 Delivery Room Air (SHIRIN MEHTA DO) Vital Signs/I&O Capillary Refill : (CARLA HDZ MD) Progress Note : Progress Note 1800--ASSUMED CARE FROM DR. HDZ. UA PENDING PT HAS NO COMPLAINTS AT THIS TIME. (SHIRIN MEHTA DO) Departure Communication (Admissions) 1838--SPOKE WITH DR. DRIVER, HERE IN ER. ACCEPTS PT FOR ADMIT. SHE IS IN TO SEE PT NOW. (SHIRIN MEHTA DO) Impression Primary Impression: UTI (urinary tract infection) Additional Impressions: Generalized weakness History of Clostridioides difficile infection renal transplant patient Parkinsons disease Frequent falls Disposition: ADMITTED INPATIENT Condition: Stable Admissions Decision to Admit Reason: Admit from ER (General) Decision to Admit/Date: Aug 12, 2020 Time/Decision to Admit Time: 18:40 (SHIRIN MEHTA DO) Departure-Patient Inst. [place] [facility] [place]) Primary Care Physician ANGELINE GUZMAN APRN (Family) Primary Care Physician CARLA HDZ MD Aug 12, 2020 16:30 SHIRIN MEHTA DO Aug 12, 2020 19:46
[2020-08-12 17:25] LABS: MONOCYTES # (AUTO) 0.4 10^3/uL (0.0-1.0)
[2020-08-12 17:27] LABS: BASOPHILS % (AUTO) 0 % (0-10); EOSINOPHILS # (AUTO) 3.2 10^3/uL (0.0-0.3); EOSINOPHILS % (AUTO) 16 % (0-10); HEMATOCRIT 44 % (35-52); HEMOGLOBIN 14.7 g/dL (11.5-16.0); LYMPHOCYTES # (AUTO) 0.6 10^3/uL (1.0-4.0); LYMPHOCYTES % (AUTO) 3 % (12-44); MEAN CORPUSCULAR HEMOGLOBIN 30 pg (25-34); MEAN CORPUSCULAR HGB CONC 34 g/dL (32-36); MEAN CORPUSCULAR VOLUME 90 fL (80-99); MEAN PLATELET VOLUME 10.4 fL (9.0-12.2); MONOCYTES % (AUTO) 2 % (0-12); NEUTROPHILS # (AUTO) 15.4 10^3/uL (1.8-7.8); NEUTROPHILS % (AUTO) 78 % (42-75); PLATELET COUNT 175 10^3/uL (130-400); WHITE BLOOD COUNT 19.8 10^3/uL (4.3-11.0)
--- NOTE | 2020-08-12 17:30 | Diagnostic Imaging Report ---
INDICATION: Coronary artery disease, sepsis. COMPARISON: 07/31/2020. EXAMINATION: Single view of the chest was obtained. FINDINGS: Clear lungs, bilaterally. The heart is normal. There is no pneumothorax but osseous structures are normal. IMPRESSION: Negative chest. Dictated by: Dictated on workstation # [id number]
[2020-08-12 17:36] LABS: ALBUMIN 4.4 GM/DL (3.2-4.5); POTASSIUM 3.9 MMOL/L (3.6-5.0)
[2020-08-12 17:37] LABS: CALCIUM 9.1 MG/DL (8.5-10.1)
[2020-08-12 17:40] LABS: BILIRUBIN,TOTAL 0.9 MG/DL (0.1-1.0)
[2020-08-12 17:42] LABS: CREATININE SERUM 0.98 MG/DL (0.60-1.30)
[2020-08-12 18:40] LABS: BILIRUBIN,URINE NEGATIVE (NEGATIVE); CLARITY,URINE CLEAR; COLOR,URINE YELLOW; GLUCOSE, URINE (UA) NEGATIVE (NEGATIVE); KETONES,URINE NEGATIVE (NEGATIVE); LEUKOCYTE ESTERASE ,URINE 1+ (NEGATIVE); NITRITE,URINE NEGATIVE (NEGATIVE); PH,URINE 5.5 (5-9); PROTEIN,URINE NEGATIVE (NEGATIVE)
[2020-08-12] MEDS ORDERED: MEROPENEM 500 MG in WATER (STERILE) FOR INJECTION 10 ML IV ONE (19:00)
[2020-08-12] MEDS ORDERED: metroNIDAZOLE 500 MG (FLAGYL) TAB PO ONE (19:00)
[2020-08-12 19:01] LABS: LYMPHOCYTES % (MANUAL) 3 %; MONOCYTES % (MANUAL) 1 %; NEUTROPHILS % (MANUAL) 96 %; RBC MORPH NORMAL
[2020-08-12 19:21] LABS: BACTERIA,URINE NEGATIVE /HPF; RENAL EPITHELIAL CELLS,URINE RARE /HPF; SQUAMOUS EPITHELIAL CELL,UR 0-2 /HPF; WBC,URINE 25-50 /HPF
[2020-08-12 19:50] VITALS: BP 102/57
--- NOTE | 2020-08-12 20:21 | History & Physical-Hospitalist ---
History of Present Illness HPI/Chief Complaint CC: Sepsis from UTI suspect ESBL HPI: This is a 70yoWF known to me from last week after she was admitted for UTI and weakness who presents back to [facility] ER after found down at home in bathroom by her after he returned from work. Her wbc was 19k. Meropenem was started due to high risk for ESBL. Patient is no longer able to remain at home so SW will be consulted for NHP. Home meds restarted after I reviewed every single one on list given to me from . Patient appears to be very weak and debilitated. Source: patient, RN/MD, old records Exam Limitations: clinical condition Date Seen 08/12/20 Time Seen by a Provider: 18:30 Attending Physician Chaya Gerber DO [facility] Referring Physician Date of Admission Aug 12, 2020 at 18:40 Home Medications & Allergies Home Medications Reviewed patient Home Medication Reconciliation performed by pharmacy medication reconciliations tire technician and/or nursing. Patients Allergies have been reviewed. Allergies Allergies Coded Allergies codeine (Unverified Allergy, Unknown, 02/12/17) morphine (Verified Allergy, Unknown, NAUSEA, 02/12/17) Past Yuwxcbl-Fipnvz-Zquxxj Hx Past Med/Social Hx: Reviewed Nursing Past Med/Soc Hx, Reviewed and Corrections made Patient Social History Marrital Status: Employed/Student: retired Alcohol Use: Denies Use Recreational Drug Use: No Smoking Status: Never a Smoker 2nd Hand Smoke Exposure: No Recent Foreign Travel: No Contact w/other who traveled: No Recent Hopitalizations: No (DECEMBER 2016-) Recent Infectious Disease Expo: No Immunizations Up To Date Tetanus Booster (TDap): Unknown Pediatric: No Date of Pneumonia Vaccine: Jul 30, 2020 Date of Influenza Vaccine: Mar 30, 2020 Seasonal Allergies Seasonal Allergies: Yes Past Medical History Surgeries: Appendectomy, Cardiac, Dialysis, Ear Surgery, Eye Surgery, Hysterectomy, Kidney Transplant, Nephrectomy, Oophorectomy, Orthopedic, Renal, Tonsillectomy, Valve Replacement Currently Using CPAP: No Currently Using BIPAP: No Cardiac: Atrial Fibrillation, High Cholesterol, Hypertension, Irregular Heartbeat, Valvular Heart Disease Neurological: Parkinson's Disease : No Reproductive: No Sexually Transmitted Disease: No HIV/AIDS: No Hysterectomy, Menopausal Genitourinary: Kidney Infection, Renal Failure, Polycystic Kidney Disease Gastrointestinal: Chronic Diarrhea, Polyps, C-Diff Musculoskeletal: Degenerate Disk Disease, Arthritis, Chronic Back Pain Endocrine: Parathyroid Disease HEENT: Cataract, Glaucoma Hearing Impairment: Hard of Hearing, Hearing Aide Left Cancer: Kidney Psychosocial: Anxiety, Depression History of Blood Disorders: No Adverse Reaction to Blood Martins: No (HAS HAD BLOOD WITH NO REACTION) Family History Alzheimer's disease 19 MOTHER (later in life) Dementia 19 MOTHER No Pertinent Family Hx PAST SURGICAL HISTORY: -LEFT EYE REMOVED/ARTIFICIAL EYE DUE TO UVEITIS -RIGHT COCHLEAR IMPLANT -DIALYSIS SHUNT LEFT ARM--DIALYSIS X 4 YEARS -MULTIPLE REVISIONS OF DIALYSIS AV GRAFT -PERITONEAL DIALYSIS SHUNT -BILATERAL NEPHRECTOMY WITH RENAL TRANSPLANT-IN RLQ OF ABDOMEN--6 YEARS AGO--FOR POLYCYSTIC KIDNEY DISEASE -CARDIAC ABLATION -AORTIC VALVE REPLACEMENT WITH PIG VALVE -TONSILLECTOMY -APPENDECTOMY -HYSTERECTOMY/ LATER BSO -CARDIAC CATH 2010--NON-OBSTRUCTIVE DISEASE, NO INTERVENTION -BILATERAL PULMONARY VEIN ABLATION WIHT STAPLE AMPTUATION OF LEFT ATRIAL APPENDAGE AT SAME TIME AORTIC VALVE REPLACEMENT -EGD/COLONOSCOPIES/POLYPECTOMIES -EXCISION OF LEFT HIP HEMATOMA 01/2017 [facility] [place]. Review of Systems Constitutional: see HPI, malaise, weakness Physical Exam Physical Exam Vital Signs Vital Signs - First Documented 08/12/20 16:19 Temp 37.4 Pulse 87 Resp 18 B/P (MAP) 113/71 (85) Pulse Ox 97 O2 Delivery Room Air Capillary Refill : Less Than 3 Seconds Height, Weight, BMI Height: 5'1.00" Weight: 127lbs. 1.0oz. 57.739675pu; 23.93 BMI Method:Stated General Appearance: No Apparent Distress, Chronically ill Eyes: Right Eye Normal Inspection, Right Eye PERRL HEENT: PERRL/EOMI, Normal ENT Inspection, Pharynx Normal, Moist Mucous Membranes Neck: Full Range of Motion, Normal Inspection, Non Tender Respiratory: Chest Non Tender, Lungs Clear, Normal Breath Sounds, No Accessory Muscle Use, No Respiratory Distress Cardiovascular: Regular Rate, Rhythm, No Edema, No Gallop, No JVD, No Murmur, Normal Peripheral Pulses Gastrointestinal: Normal Bowel Sounds, No Organomegaly, No Pulsatile Mass, Non Tender, Soft Back: Normal Inspection, No CVA Tenderness, No Vertebral Tenderness Extremity: Normal Capillary Refill, Normal Inspection, Normal Range of Motion, Non Tender, No Calf Tenderness, No Pedal Edema Neurologic/Psychiatric: Alert, Normal Mood/Affect, Depressed Affect, Disoriented, Motor Weakness (severe weakness) Skin: Normal Color, Warm/Dry Lymphatic: No Adenopathy Results Results/Procedures Labs Laboratory Tests 08/12/20 17:10 Patient resulted labs reviewed. Assessment/Plan Admission Diagnosis Assessment: UTI suspect ESBL placed on Meropenem Parkinson's disease Falls Renal transplant status h/o C diff colitis Inability to ambulate Plan: Meropenem Flagyl Needs [facility] Home meds Admission Status: Inpatient Order (span 2 midnights) Reason for Inpatient Admission: esbl uti CHAYA GERBER DO Aug 12, 2020 20:21
[2020-08-12] MEDS ORDERED: CATHETER FLUSH 10 ML SYR IV PRN (20:30)
[2020-08-12] MEDS: D5 1/2 NS W/KCL 20 MEQ/L 1,000 ML IV SCH (20:35)
[2020-08-12] MEDS: ACETAMINOPHEN 500 MG TAB (TYLENOL) PO PRN (20:36)
[2020-08-12] MEDS ORDERED: DOCUSATE SODIUM 100 MG (COLACE) CAP PO PRN (20:45)
[2020-08-12] MEDS ORDERED: LOPERAMIDE HCL PO PRN (20:45)
[2020-08-12] MEDS ORDERED: fentaNYL INJECTION 100 MCG/2 ML AMP IVP PRN (20:45)
[2020-08-12] MEDS ORDERED: [UNRECOGNIZED DRUG - OTHER] PO PRN (20:45)
[2020-08-12] MEDS ORDERED: SIMETHICONE PO PRN (20:45)
[2020-08-12] MEDS ORDERED: CALCIUM CARBONATE 500 MG (TUMS) TAB.CHEW PO PRN (20:45)
[2020-08-12] MEDS ORDERED: diphenhydrAMINE 25 MG TAB (BENADRYL) PO PRN (20:45)
[2020-08-12] MEDS ORDERED: ALOSETRON HCL 0.5 MG PO SCH (21:00)
[2020-08-12] MEDS ORDERED: NON-FORMULARY MEDICATION 1 EA EA (Cranberry Fruit Concentrate (Cranberry) 450 MG) PO SCH (21:00)
[2020-08-12] MEDS ORDERED: MYCOPHENOLATE SODIUM 360 MG PO SCH (21:00)
[2020-08-12] MEDS ORDERED: metroNIDAZOLE 500 MG (FLAGYL) TAB PO SCH (22:00)
[2020-08-12] MEDS ORDERED: FLUTICASONE NASAL SPRAY (FLONASE) 16 GM BTL NS PRN (22:45)
[2020-08-12] MEDS ORDERED: LOPERAMIDE 2 MG (IMODIUM) TABLET PO PRN (22:45)
[2020-08-12] MEDS: ASPIRIN E.C. 81 MG (ECOTRIN) TAB PO SCH (22:59)
[2020-08-12] MEDS: ENOXAPARIN 40 MG/0.4 ML (LOVENOX) SYR SC SCH (22:59)
[2020-08-12] MEDS: BACLOFEN 10 MG (LIORESAL) TAB PO SCH (23:00)
[2020-08-12] MEDS: SENNA W/DOCUSATE (SENOKOT S) TABLET PO SCH (23:02)
[2020-08-13] VITALS (7 sets, daily range): BP systolic 99–132; BP diastolic 54–72
[2020-08-13] MEDS: MEROPENEM 500 MG/SWFI 10 ML IV PUSH IV SCH ×6 (02:59→22:04)
[2020-08-13] MEDS: D5 1/2 NS W/KCL 20 MEQ/L 1,000 ML IV SCH ×2 (04:53→14:04)
[2020-08-13] MEDS: metroNIDAZOLE 500 MG (FLAGYL) TAB PO SCH ×3 (04:53→21:55)
[2020-08-13] MEDS: MULTIVIT W/MINERALS TAB (THERAGRAN M) PO SCH (05:01)
[2020-08-13] MEDS: ONDANSETRON 4 MG/2 ML (SDV) Z0FRAN IV PRN ×2 (05:28→10:18)
[2020-08-13 06:06] LABS: EOSINOPHILS % (AUTO) 0 % (0-10); LYMPHOCYTES # (AUTO) 0.6 10^3/uL (1.0-4.0); LYMPHOCYTES % (AUTO) 4 % (12-44)
[2020-08-13 06:08] LABS: BASOPHILS % (AUTO) 0 % (0-10); HEMATOCRIT 39 % (35-52); HEMOGLOBIN 13.2 g/dL (11.5-16.0); MEAN CORPUSCULAR HEMOGLOBIN 30 pg (25-34); MEAN CORPUSCULAR HGB CONC 34 g/dL (32-36); MEAN CORPUSCULAR VOLUME 88 fL (80-99); MEAN PLATELET VOLUME 10.3 fL (9.0-12.2); MONOCYTES % (AUTO) 6 % (0-12); NEUTROPHILS # (AUTO) 14.7 10^3/uL (1.8-7.8); NEUTROPHILS % (AUTO) 89 % (42-75); PLATELET COUNT 132 10^3/uL (130-400); WHITE BLOOD COUNT 16.5 10^3/uL (4.3-11.0)
[2020-08-13 06:17] LABS: ALBUMIN 3.7 GM/DL (3.2-4.5)
[2020-08-13 06:18] LABS: CHLORIDE 103 MMOL/L (98-107); POTASSIUM 4.2 MMOL/L (3.6-5.0); SODIUM 131 MMOL/L (135-145)
[2020-08-13 06:19] LABS: CALCIUM 8.2 MG/DL (8.5-10.1)
[2020-08-13 06:20] LABS: GLUCOSE 153 MG/DL (70-105); TOTAL PROTEIN 6.5 GM/DL (6.4-8.2)
[2020-08-13 06:21] LABS: CARBON DIOXIDE 19 MMOL/L (21-32)
[2020-08-13 06:22] LABS: BILIRUBIN,TOTAL 1.4 MG/DL (0.1-1.0)
[2020-08-13 06:23] LABS: ALKALINE PHOSPHATASE 59 U/L (40-136)
[2020-08-13 06:24] LABS: CREATININE SERUM 0.84 MG/DL (0.60-1.30); GFR ESTIMATED > 60
[2020-08-13 06:25] LABS: BUN/CREATININE RATIO 19
[2020-08-13 06:26] LABS: ALANINE AMINOTRANSFERASE 20 U/L (0-55)
[2020-08-13] MEDS: ASPIRIN E.C. 81 MG (ECOTRIN) TAB PO SCH ×2 (09:40→21:54)
[2020-08-13] MEDS: LACTOBACILLUS ACIDOPHILUS (PROBIOTIC) CAPSULE PO SCH (09:41)
[2020-08-13] MEDS: SIMETHICONE 80 MG (MYLICON) CHEW PO SCH ×4 (09:41→21:55)
[2020-08-13] MEDS: FAMOTIDINE 20 MG (PEPCID) TABLET PO SCH (09:42)
[2020-08-13] MEDS: BACLOFEN 10 MG (LIORESAL) TAB PO SCH ×2 (09:42→21:55)
[2020-08-13] MEDS: buPROPion 100 MG (WELLBUTRIN) TAB PO SCH (09:42)
[2020-08-13] MEDS: ASCORBIC ACID (VIT C) 500 MG TABLET PO SCH (09:43)
[2020-08-13] MEDS: DICYCLOMINE 10 MG (BENTYL) CAP PO SCH ×3 (09:44→22:47)
[2020-08-13] MEDS: DORZOLAMIDE 2% 10 ML BTL (TRUSOPT) OD SCH ×3 (09:45→22:05)
[2020-08-13] MEDS: ARTIFICAL TEARS 0.4 ML UNIT DOSE (REFRESH PLUS) OD SCH ×3 (09:46→22:04)
[2020-08-13] MEDS: SENNA W/DOCUSATE (SENOKOT S) TABLET PO SCH ×2 (09:58→21:55)
[2020-08-13] MEDS ORDERED: PATIENT MAY USE OWN MEDS, ALL MC SCH (11:30)
--- NOTE | 2020-08-13 11:39 | Progress Note - Hospitalist ---
PABLO SANTOS MED STUDENT 08/13/20 1139: Subjective HPI/CC On Admission CC: Sepsis from UTI suspect ESBL HPI: This is a 70yoWF known to me from last week after she was admitted for UTI and weakness who presents back to [facility] ER after found down at home in bathroom by her after he returned from work. Her wbc was 19k. Meropenem was started due to high risk for ESBL. Patient is no longer able to remain at home so SW will be consulted for NHP. Home meds restarted after I reviewed every single one on list given to me from . Patient appears to be very weak and debilitated. Subjective/Events-last exam The patient complains of diarrhea and mild discomfort but denied any pain. C. Diff culture was taken and positive this morning. She was accompanied by her who states that she has a history of UTIs and a history of C. Diff after antibiotic use. Pt is on C. Diff precautions. She denies issues with urination. She denies ambulating and states she tried yesterday but was too weak. She uses a walker at home. She spoke with social work this morning about her care plan. Na 131 C. Diff positive Review of Systems General: Other (discomfort.) Gastrointestinal: Diarrhea Neurological: Weakness Focused Exam Lactate Level 08/12/20 17:10: Lactic Acid Level 1.23 Objective Exam Vital Signs Vital Signs Date Time Temp Pulse Resp B/P (MAP) Pulse Ox O2 Delivery O2 Flow Rate FiO2 08/13/20 08:00 37.2 97 22 132/58 (82) 97 Room Air Capillary Refill : Less Than 3 Seconds General Appearance: No Apparent Distress, WD/WN Respiratory: Chest Non Tender, Lungs Clear, Normal Breath Sounds, No Accessory Muscle Use, No Respiratory Distress Cardiovascular: Regular Rate, Rhythm Neurologic/Psychiatric: Alert Results/Procedures Lab Laboratory Tests 08/12/20 17:10 08/13/20 05:55 Patient resulted labs reviewed. Assessment/Plan Assessment and Plan Assess & Plan/Chief Complaint 1. C. Diff/diarrhea - d/c other antibiotics. start vancomycin. plenty of fluids 2. UTI - no longer present. d/c meropenem and flagyl 3. Hx of renal transplant - monitor renal function 4. parkinson's 5. frequent falls - consult social work for nursing facility or home health care Diagnosis/Problems Diagnosis/Problems (1) Parkinsons Status: Acute (2) Generalized weakness Status: Acute (3) Urinary tract infection Status: Acute (4) Diarrhea Status: Acute (5) Frequent falls Status: Acute (6) Parkinsons disease Status: Chronic CHAYA DRIVER DO 08/14/20 0703: Subjective HPI/CC On Admission Date Seen by Provider: Aug 13, 2020 Time Seen by Provider: 10:00 Subjective/Events-last exam C diff positive Labs reviewed Review of Systems General: Fatigue Objective Exam General Appearance: No Apparent Distress, WD/WN, Chronically ill Respiratory: Lungs Clear Cardiovascular: Regular Rate, Rhythm Neurologic/Psychiatric: Alert, Oriented x3, No Motor/Sensory Deficits, Normal Mood/Affect Assessment/Plan Assessment and Plan Assess & Plan/Chief Complaint C diff treatment PT OT Needs NH Supervisory-Addendum Brief Verification & Attestation Participated in pt care: history, MDM, physical Personally performed: exam, history, MDM, supervision of care Care discussed with: Medical Student Procedures: n/a Results interpretation: Verified all documentation Verification and Attestation of Medical Student E/M Service A medical student performed and documented this service in my presence. I reviewed and verified all information documented by the medical student and made modifications to such information, when appropriate. I personally performed the physical exam and medical decision making. Chaya Driver, Aug 14, 2020,07:05 PABLO SANTOS MED STUDENT Aug 13, 2020 11:39 CHAYA DRIVER DO Aug 14, 2020 07:03
[2020-08-13] MEDS: TACROLIMUS 1 MG (PROGRAF) CAP NON-FORMULARY PO SCH ×3 (14:05→21:56)
[2020-08-13] MEDS: MYCOPHENOLIC 360 MG PO SCH ×2 (15:09→21:57)
[2020-08-13] MEDS: ALOSETRON PO SCH ×2 (15:10→21:57)
[2020-08-13] MEDS ORDERED: MIRTAZAPINE 15 MG (REMERON) TAB PO SCH (21:00)
[2020-08-13] MEDS ORDERED: PATIENT MAY USE OWN MED,SINGLE MED PO SCH ×2 (21:00)
[2020-08-13] MEDS: GABAPENTIN 600 MG (NEURONTIN) TAB PO SCH (21:55)
[2020-08-13] MEDS: MIRTAZAPINE 15 MG (REMERON) TAB PO SCH (21:55)
[2020-08-13] MEDS: ENOXAPARIN 40 MG/0.4 ML (LOVENOX) SYR SC SCH (22:04)
[2020-08-13] MEDS: CHOLESTYRAMINE 4 GM (QUESTRAN LITE, PREVALITE) PKT PO SCH (22:18)
[2020-08-14] MEDS: clonazePAM 0.5 MG (KlonoPIN) TAB PO PRN (00:02)
[2020-08-14] MEDS: MELATONIN 3 MG TABLET PO PRN (00:02)
[2020-08-14] MEDS: MEROPENEM 500 MG/SWFI 10 ML IV PUSH IV SCH ×6 (02:41→17:54)
[2020-08-14] MEDS: D5 1/2 NS W/KCL 20 MEQ/L 1,000 ML IV SCH ×3 (02:41→15:38)
[2020-08-14 04:16] VITALS: BP 116/58
[2020-08-14] MEDS: metroNIDAZOLE 500 MG (FLAGYL) TAB PO SCH (05:46)
[2020-08-14] MEDS: MULTIVIT W/MINERALS TAB (THERAGRAN M) PO SCH (05:46)
[2020-08-14 05:56] LABS: BASOPHILS % (AUTO) 0 % (0-10); EOSINOPHILS # (AUTO) 0.1 10^3/uL (0.0-0.3); EOSINOPHILS % (AUTO) 1 % (0-10); HEMATOCRIT 35 % (35-52); HEMOGLOBIN 11.7 g/dL (11.5-16.0); MEAN CORPUSCULAR HEMOGLOBIN 30 pg (25-34); MEAN CORPUSCULAR HGB CONC 34 g/dL (32-36); MEAN CORPUSCULAR VOLUME 89 fL (80-99); MONOCYTES # (AUTO) 0.7 10^3/uL (0.0-1.0)
[2020-08-14 05:58] LABS: LYMPHOCYTES # (AUTO) 0.7 10^3/uL (1.0-4.0); LYMPHOCYTES % (AUTO) 9 % (12-44); MEAN PLATELET VOLUME 10.6 fL (9.0-12.2); MONOCYTES % (AUTO) 8 % (0-12); NEUTROPHILS # (AUTO) 6.8 10^3/uL (1.8-7.8); NEUTROPHILS % (AUTO) 81 % (42-75); PLATELET COUNT 123 10^3/uL (130-400); WHITE BLOOD COUNT 8.4 10^3/uL (4.3-11.0)
[2020-08-14 06:20] LABS: ALBUMIN 3.4 GM/DL (3.2-4.5)
[2020-08-14 06:21] LABS: CHLORIDE 112 MMOL/L (98-107); POTASSIUM 4.1 MMOL/L (3.6-5.0); SODIUM 139 MMOL/L (135-145)
[2020-08-14 06:22] LABS: CALCIUM 8.5 MG/DL (8.5-10.1)
[2020-08-14 06:23] LABS: GLUCOSE 110 MG/DL (70-105)
[2020-08-14 06:24] LABS: CARBON DIOXIDE 20 MMOL/L (21-32)
[2020-08-14 06:25] LABS: BILIRUBIN,TOTAL 0.7 MG/DL (0.1-1.0)
[2020-08-14 06:27] LABS: ALKALINE PHOSPHATASE 52 U/L (40-136); CREATININE SERUM 0.71 MG/DL (0.60-1.30); GFR ESTIMATED > 60
[2020-08-14 06:28] LABS: BUN/CREATININE RATIO 10
[2020-08-14 06:30] LABS: ALANINE AMINOTRANSFERASE 18 U/L (0-55)
[2020-08-14] MEDS: CHOLESTYRAMINE 4 GM (QUESTRAN LITE, PREVALITE) PKT PO SCH ×2 (07:06→17:02)
--- NOTE | 2020-08-14 07:20 | Progress Note - Hospitalist ---
Subjective HPI/CC On Admission Date Seen by Provider: Aug 14, 2020 Time Seen by Provider: 11:30 CC: Sepsis from UTI suspect ESBL HPI: This is a 70yoWF known to me from last week after she was admitted for UTI and weakness who presents back to [facility] ER after found down at home in bathroom by her after he returned from work. Her wbc was 19k. Meropenem was started due to high risk for ESBL. Patient is no longer able to remain at home so SW will be consulted for NHP. Home meds restarted after I reviewed every single one on list given to me from . Patient appears to be very weak and debilitated. Subjective/Events-last exam Patient feels better More alert Not eating too well Increasing po fluids IVF remain infusing Changed to Vanc PO for C diff Creatinine ok Review of Systems General: Fatigue, Malaise Focused Exam Lactate Level 08/12/20 17:10: Lactic Acid Level 1.23 Objective Exam Vital Signs Vital Signs Date Time Temp Pulse Resp B/P (MAP) Pulse Ox O2 Delivery O2 Flow Rate FiO2 08/14/20 19:52 Room Air 08/14/20 19:00 75 08/14/20 16:00 36.6 20 120/59 (79) 99 Capillary Refill : Less Than 3 Seconds General Appearance: No Apparent Distress, WD/WN, Chronically ill Respiratory: Chest Non Tender, Lungs Clear, Normal Breath Sounds, No Accessory Muscle Use, No Respiratory Distress Cardiovascular: Regular Rate, Rhythm, No Edema, No Gallop, No JVD, No Murmur, Normal Peripheral Pulses Neurologic/Psychiatric: Alert, Oriented x3, No Motor/Sensory Deficits, Normal Mood/Affect Results/Procedures Lab Laboratory Tests 08/14/20 05:26 Patient resulted labs reviewed. Assessment/Plan Assessment and Plan Assess & Plan/Chief Complaint Assessment: Recurrent UTI placed on Meropenem due to suspicion for ESBL now UCx NGTD today so DC abx C diff colitis with h/o life threatening c diff colitis episode remotely PD Renal transplant patient Falls Plan: Vanc PO DC abx Meropenem since Ucx NGTD Needs NH JOSEPH DRIVER DO Aug 14, 2020 07:20
[2020-08-14 08:27] VITALS: BP 138/72
[2020-08-14] MEDS: DICYCLOMINE 10 MG (BENTYL) CAP PO SCH ×4 (08:53→20:40)
[2020-08-14] MEDS: buPROPion 100 MG (WELLBUTRIN) TAB PO SCH (08:53)
[2020-08-14] MEDS: GABAPENTIN 600 MG (NEURONTIN) TAB PO SCH ×3 (08:53→20:41)
[2020-08-14] MEDS: ASCORBIC ACID (VIT C) 500 MG TABLET PO SCH (08:54)
[2020-08-14] MEDS: BACLOFEN 10 MG (LIORESAL) TAB PO SCH ×2 (08:54→20:41)
[2020-08-14] MEDS: LACTOBACILLUS ACIDOPHILUS (PROBIOTIC) CAPSULE PO SCH (08:54)
[2020-08-14] MEDS: FAMOTIDINE 20 MG (PEPCID) TABLET PO SCH (08:54)
[2020-08-14] MEDS: SIMETHICONE 80 MG (MYLICON) CHEW PO SCH ×4 (08:54→20:40)
[2020-08-14] MEDS: ASPIRIN E.C. 81 MG (ECOTRIN) TAB PO SCH ×2 (08:54→20:40)
[2020-08-14] MEDS: SENNA W/DOCUSATE (SENOKOT S) TABLET PO SCH ×2 (08:54→20:44)
[2020-08-14] MEDS: MYCOPHENOLIC 360 MG PO SCH ×2 (08:55→20:42)
[2020-08-14] MEDS: TACROLIMUS 1 MG (PROGRAF) CAP NON-FORMULARY PO SCH ×2 (08:55→20:44)
[2020-08-14] MEDS: ALOSETRON PO SCH ×2 (08:55→20:44)
[2020-08-14] MEDS: DORZOLAMIDE 2% 10 ML BTL (TRUSOPT) OD SCH ×2 (08:55→20:42)
[2020-08-14 11:47] VITALS: BP 118/64
[2020-08-14] MEDS: VANCOMYCIN 125 MG CAPSULE PO SCH ×2 (13:07→17:02)
[2020-08-14 16:00] VITALS: BP 120/59
[2020-08-14 20:00] VITALS: BP 152/90
[2020-08-14] MEDS: ENOXAPARIN 40 MG/0.4 ML (LOVENOX) SYR SC SCH (20:40)
[2020-08-14] MEDS: ARTIFICAL TEARS 0.4 ML UNIT DOSE (REFRESH PLUS) OD SCH (20:40)
[2020-08-14] MEDS: MIRTAZAPINE 15 MG (REMERON) TAB PO SCH (20:41)
[2020-08-15] VITALS: BP 140/67
[2020-08-15] MEDS: VANCOMYCIN 125 MG CAPSULE PO SCH ×4 (00:54→18:34)
[2020-08-15] MEDS: ACETAMINOPHEN 500 MG TAB (TYLENOL) PO PRN (01:37)
[2020-08-15] MEDS: D5 1/2 NS W/KCL 20 MEQ/L 1,000 ML IV SCH ×3 (02:32→21:05)
[2020-08-15] MEDS: clonazePAM 0.5 MG (KlonoPIN) TAB PO PRN ×2 (03:03→21:12)
[2020-08-15 03:57] VITALS: BP 122/61
[2020-08-15] MEDS: MULTIVIT W/MINERALS TAB (THERAGRAN M) PO SCH (06:02)
[2020-08-15 07:24] LABS: BASOPHILS % (AUTO) 0 % (0-10); EOSINOPHILS # (AUTO) 0.1 10^3/uL (0.0-0.3); EOSINOPHILS % (AUTO) 1 % (0-10); HEMATOCRIT 37 % (35-52); HEMOGLOBIN 12.4 g/dL (11.5-16.0); LYMPHOCYTES % (AUTO) 15 % (12-44); MEAN CORPUSCULAR HEMOGLOBIN 30 pg (25-34); MEAN CORPUSCULAR HGB CONC 33 g/dL (32-36); MEAN CORPUSCULAR VOLUME 89 fL (80-99); MEAN PLATELET VOLUME 10.6 fL (9.0-12.2); MONOCYTES # (AUTO) 0.5 10^3/uL (0.0-1.0); MONOCYTES % (AUTO) 7 % (0-12); NEUTROPHILS # (AUTO) 5.2 10^3/uL (1.8-7.8); NEUTROPHILS % (AUTO) 75 % (42-75); PLATELET COUNT 159 10^3/uL (130-400); WHITE BLOOD COUNT 6.9 10^3/uL (4.3-11.0)
[2020-08-15] MEDS: CHOLESTYRAMINE 4 GM (QUESTRAN LITE, PREVALITE) PKT PO SCH ×2 (07:32→17:07)
[2020-08-15 07:33] LABS: ALBUMIN 3.5 GM/DL (3.2-4.5); CHLORIDE 114 MMOL/L (98-107); POTASSIUM 4.2 MMOL/L (3.6-5.0); SODIUM 139 MMOL/L (135-145)
[2020-08-15 07:34] LABS: CALCIUM 8.7 MG/DL (8.5-10.1)
[2020-08-15 07:35] LABS: GLUCOSE 104 MG/DL (70-105); TOTAL PROTEIN 6.3 GM/DL (6.4-8.2)
[2020-08-15 07:36] LABS: CARBON DIOXIDE 18 MMOL/L (21-32)
[2020-08-15 07:37] LABS: BILIRUBIN,TOTAL 0.6 MG/DL (0.1-1.0)
[2020-08-15 07:38] LABS: ALKALINE PHOSPHATASE 57 U/L (40-136)
[2020-08-15 07:39] LABS: CREATININE SERUM 0.75 MG/DL (0.60-1.30); GFR ESTIMATED > 60
[2020-08-15 07:40] LABS: BUN/CREATININE RATIO 13
[2020-08-15 07:42] LABS: ALANINE AMINOTRANSFERASE 19 U/L (0-55)
[2020-08-15 08:09] VITALS: BP 137/83
[2020-08-15] MEDS: SIMETHICONE 80 MG (MYLICON) CHEW PO SCH ×4 (08:14→21:02)
[2020-08-15] MEDS: ASPIRIN E.C. 81 MG (ECOTRIN) TAB PO SCH ×2 (08:14→21:02)
[2020-08-15] MEDS: FAMOTIDINE 20 MG (PEPCID) TABLET PO SCH (08:14)
[2020-08-15] MEDS: LACTOBACILLUS ACIDOPHILUS (PROBIOTIC) CAPSULE PO SCH (08:14)
[2020-08-15] MEDS: buPROPion 100 MG (WELLBUTRIN) TAB PO SCH (08:14)
[2020-08-15] MEDS: GABAPENTIN 600 MG (NEURONTIN) TAB PO SCH ×3 (08:14→21:03)
[2020-08-15] MEDS: DICYCLOMINE 10 MG (BENTYL) CAP PO SCH ×4 (08:14→21:03)
[2020-08-15] MEDS: BACLOFEN 10 MG (LIORESAL) TAB PO SCH ×2 (08:15→21:03)
[2020-08-15] MEDS: MYCOPHENOLIC 360 MG PO SCH ×2 (08:16→21:02)
[2020-08-15] MEDS: ALOSETRON PO SCH ×2 (08:16→21:04)
[2020-08-15] MEDS: DORZOLAMIDE 2% 10 ML BTL (TRUSOPT) OD SCH ×2 (08:17→21:01)
[2020-08-15] MEDS: ARTIFICAL TEARS 0.4 ML UNIT DOSE (REFRESH PLUS) OD SCH ×2 (08:19→21:04)
[2020-08-15] MEDS: SENNA W/DOCUSATE (SENOKOT S) TABLET PO SCH ×2 (08:19→20:35)
[2020-08-15] MEDS: TACROLIMUS 1 MG (PROGRAF) CAP NON-FORMULARY PO SCH ×2 (08:20→21:03)
[2020-08-15] MEDS: ASCORBIC ACID (VIT C) 500 MG TABLET PO SCH (08:25)
[2020-08-15 11:11] VITALS: BP 128/76
--- NOTE | 2020-08-15 12:43 | Progress Note - Hospitalist ---
Subjective HPI/CC On Admission Date Seen by Provider: Aug 15, 2020 Time Seen by Provider: 12:15 CC: Sepsis from UTI suspect ESBL HPI: This is a 70yoWF known to me from last week after she was admitted for UTI and weakness who presents back to [facility] ER after found down at home in bathroom by her after he returned from work. Her wbc was 19k. Meropenem was started due to high risk for ESBL. Patient is no longer able to remain at home so SW will be consulted for NHP. Home meds restarted after I reviewed every single one on list given to me from . Patient appears to be very weak and debilitated. Subjective/Events-last exam Patient doing well Diarrhea last early this morning Labs improved No pain DC abx due to UCx NGTD Review of Systems General: Fatigue, Malaise Gastrointestinal: Diarrhea Focused Exam Lactate Level 08/12/20 17:10: Lactic Acid Level 1.23 Objective Exam Vital Signs Vital Signs Date Time Temp Pulse Resp B/P (MAP) Pulse Ox O2 Delivery O2 Flow Rate FiO2 08/15/20 12:22 74 08/15/20 11:11 36.6 20 128/76 (93) 100 Room Air Capillary Refill : Less Than 3 Seconds General Appearance: No Apparent Distress, WD/WN Respiratory: Chest Non Tender, Lungs Clear, Normal Breath Sounds, No Accessory Muscle Use, No Respiratory Distress Cardiovascular: Regular Rate, Rhythm, No Edema, No Gallop, No JVD, No Murmur, Normal Peripheral Pulses Neurologic/Psychiatric: Alert, Oriented x3, No Motor/Sensory Deficits, Depressed Affect Results/Procedures Lab Laboratory Tests 08/15/20 07:12 Patient resulted labs reviewed. Assessment/Plan Assessment and Plan Assess & Plan/Chief Complaint Assessment: Recurrent UTI placed on Meropenem due to suspicion for ESBL now UCx NGTD today so DC abx C diff colitis with h/o life threatening c diff colitis episode remotely PD Renal transplant patient Falls Plan: Vanc PO DC abx Meropenem since Ucx NGTD Needs NH 08/15/20: DC abx Vanc po for c diff colitis JOSEPH DRIVER DO Aug 15, 2020 12:43
[2020-08-15 16:00] VITALS: BP 145/73
[2020-08-15 20:00] VITALS: BP 161/83
[2020-08-15] MEDS: ENOXAPARIN 40 MG/0.4 ML (LOVENOX) SYR SC SCH (21:01)
[2020-08-15] MEDS: MIRTAZAPINE 15 MG (REMERON) TAB PO SCH (21:02)
[2020-08-15] MEDS: MELATONIN 3 MG TABLET PO PRN (21:13)
[2020-08-16] VITALS: BP 117/64
[2020-08-16] MEDS: VANCOMYCIN 125 MG CAPSULE PO SCH ×4 (00:03→17:42)
[2020-08-16 04:00] VITALS: BP 129/62
[2020-08-16] MEDS: MULTIVIT W/MINERALS TAB (THERAGRAN M) PO SCH (05:27)
[2020-08-16 06:39] LABS: BASOPHILS % (AUTO) 1 % (0-10); EOSINOPHILS # (AUTO) 0.1 10^3/uL (0.0-0.3); EOSINOPHILS % (AUTO) 2 % (0-10); HEMATOCRIT 37 % (35-52); HEMOGLOBIN 12.6 g/dL (11.5-16.0); LYMPHOCYTES # (AUTO) 1.2 10^3/uL (1.0-4.0); LYMPHOCYTES % (AUTO) 24 % (12-44); MEAN CORPUSCULAR HEMOGLOBIN 30 pg (25-34); MEAN CORPUSCULAR HGB CONC 34 g/dL (32-36); MEAN CORPUSCULAR VOLUME 87 fL (80-99); MONOCYTES # (AUTO) 0.4 10^3/uL (0.0-1.0); MONOCYTES % (AUTO) 7 % (0-12); NEUTROPHILS # (AUTO) 3.5 10^3/uL (1.8-7.8); NEUTROPHILS % (AUTO) 66 % (42-75); PLATELET COUNT 174 10^3/uL (130-400); WHITE BLOOD COUNT 5.2 10^3/uL (4.3-11.0)
[2020-08-16] MEDS: CHOLESTYRAMINE 4 GM (QUESTRAN LITE, PREVALITE) PKT PO SCH ×2 (06:39→16:57)
[2020-08-16 06:55] LABS: ALBUMIN 3.6 GM/DL (3.2-4.5)
[2020-08-16 06:56] LABS: CHLORIDE 114 MMOL/L (98-107); POTASSIUM 4.5 MMOL/L (3.6-5.0); SODIUM 139 MMOL/L (135-145)
[2020-08-16 06:57] LABS: CALCIUM 8.5 MG/DL (8.5-10.1)
[2020-08-16 06:58] LABS: GLUCOSE 92 MG/DL (70-105); TOTAL PROTEIN 6.4 GM/DL (6.4-8.2)
[2020-08-16 06:59] LABS: CARBON DIOXIDE 17 MMOL/L (21-32)
[2020-08-16 07:00] LABS: BILIRUBIN,TOTAL 0.8 MG/DL (0.1-1.0)
[2020-08-16 07:01] LABS: ALKALINE PHOSPHATASE 53 U/L (40-136)
[2020-08-16 07:02] LABS: CREATININE SERUM 0.69 MG/DL (0.60-1.30); GFR ESTIMATED > 60
[2020-08-16 07:03] LABS: BUN/CREATININE RATIO 17
[2020-08-16 07:05] LABS: ALANINE AMINOTRANSFERASE 17 U/L (0-55)
[2020-08-16 08:00] VITALS: BP 127/76
[2020-08-16] MEDS: DORZOLAMIDE 2% 10 ML BTL (TRUSOPT) OD SCH ×2 (08:45→21:16)
[2020-08-16] MEDS: ARTIFICAL TEARS 0.4 ML UNIT DOSE (REFRESH PLUS) OD SCH ×2 (08:45→21:17)
[2020-08-16] MEDS: SENNA W/DOCUSATE (SENOKOT S) TABLET PO SCH ×2 (09:00→20:12)
[2020-08-16] MEDS: buPROPion 100 MG (WELLBUTRIN) TAB PO SCH (09:39)
[2020-08-16] MEDS: LACTOBACILLUS ACIDOPHILUS (PROBIOTIC) CAPSULE PO SCH (09:39)
[2020-08-16] MEDS: ASPIRIN E.C. 81 MG (ECOTRIN) TAB PO SCH ×2 (09:39→21:15)
[2020-08-16] MEDS: FAMOTIDINE 20 MG (PEPCID) TABLET PO SCH (09:39)
[2020-08-16] MEDS: GABAPENTIN 600 MG (NEURONTIN) TAB PO SCH ×3 (09:40→21:14)
[2020-08-16] MEDS: DICYCLOMINE 10 MG (BENTYL) CAP PO SCH ×4 (09:40→21:14)
[2020-08-16] MEDS: ASCORBIC ACID (VIT C) 500 MG TABLET PO SCH (09:40)
[2020-08-16] MEDS: SIMETHICONE 80 MG (MYLICON) CHEW PO SCH ×4 (09:40→21:14)
[2020-08-16] MEDS: MYCOPHENOLIC 360 MG PO SCH ×2 (09:41→21:16)
[2020-08-16] MEDS: ALOSETRON PO SCH ×2 (09:41→21:16)
[2020-08-16] MEDS: TACROLIMUS 1 MG (PROGRAF) CAP NON-FORMULARY PO SCH ×2 (09:41→21:15)
[2020-08-16] MEDS: D5 1/2 NS W/KCL 20 MEQ/L 1,000 ML IV SCH ×2 (09:43→22:12)
[2020-08-16] MEDS: BACLOFEN 10 MG (LIORESAL) TAB PO SCH ×2 (09:54→21:14)
--- NOTE | 2020-08-16 11:28 | Progress Note ---
Subjective Subjective/Events-last exam Afebrile, feeling better today. at bedside also agrees she is much improved today. She states her abdomen feels better and isn't cramping like before. She had several hours overnight without any bowel movements. Objective Exam Last Set of Vital Signs Vital Signs Date Time Temp Pulse Resp B/P (MAP) Pulse Ox O2 Delivery O2 Flow Rate FiO2 08/16/20 08:00 36.3 76 18 127/76 (93) 98 Room Air Capillary Refill : Less Than 3 Seconds I&O Intake and Output 08/16/20 00:00 Intake Total 1950 ml Balance 1950 ml Intake Oral 1950 ml # Voids 10 # Bowel Movements 10 General: Alert, No Acute Distress Lungs: Clear to Auscultation, Normal Air Movement Heart: Regular Rate, No Murmurs Abdomen: Normal Bowel Sounds, Soft, No Tenderness Extremities: No Edema Neuro: Normal Speech, Other (pill rolling tremor right hand) Psych/Mental Status: Other (flat affect) Results/Procedures Lab Laboratory Tests 08/16/20 05:35: White Blood Count 5.2, Red Blood Count 4.23, Hemoglobin 12.6, Hematocrit 37, Mean Corpuscular Volume 87, Mean Corpuscular Hemoglobin 30, Mean Corpuscular Hemoglobin Concent 34, Red Cell Distribution Width 13.3, Platelet Count 174, Mean Platelet Volume 11.0, Immature Granulocyte % (Auto) 1, Neutrophils (%) (Auto) 66, Lymphocytes (%) (Auto) 24, Monocytes (%) (Auto) 7, Eosinophils (%) (Auto) 2, Basophils (%) (Auto) 1, Neutrophils # (Auto) 3.5, Lymphocytes # (Auto) 1.2, Monocytes # (Auto) 0.4, Eosinophils # (Auto) 0.1, Basophils # (Auto) 0.0, Immature Granulocyte # (Auto) 0.1, Sodium Level 139, Potassium Level 4.5, Chloride Level 114H, Carbon Dioxide Level 17L, Anion Gap 8, Blood Urea Nitrogen 12, Creatinine 0.69, Estimat Glomerular Filtration Rate > 60, BUN/Creatinine Ratio 17, Glucose Level 92, Calcium Level 8.5, Corrected Calcium 8.8, Total Bilirubin 0.8, Aspartate Amino Transf (AST/SGOT) 18, Alanine Aminotransferase (ALT/SGPT) 17, Alkaline Phosphatase 53, Total Protein 6.4, Albumin 3.6 Microbiology 2/25/21 Fecal Leukocyte Stain - Final, Complete 08/12/20 C. difficile GDH Antigen & Toxins - Final, Complete 08/12/20 Stool Culture - Final, Complete 08/12/20 Urine Culture - Final, Complete NO GROWTH 08/12/20 Blood Culture - Preliminary, Resulted No growth 08/12/20 Influenza Types A,B Antigen (IRENE) - Final, Complete Assessment/Plan Assessment/Plan (1) C. difficile colitis Status: Acute Assessment & Plan: Was recently on abx for UTI. Stool output decreasing, continuing PO vancomycin. (2) Generalized weakness Status: Acute Assessment & Plan: Will likely need at least halfway on d/c, patient is in agreement. (3) History of renal transplant Status: Chronic Assessment & Plan: Continue home anti-rejection medications. (4) DVT prophylaxis Status: Acute Assessment & Plan: Enoxaparin MAYANK DE LEÓN MD Aug 16, 2020 11:28
[2020-08-16 11:36] VITALS: BP 143/77
[2020-08-16 16:11] VITALS: BP 128/61
[2020-08-16 19:37] VITALS: BP 138/64
[2020-08-16] MEDS: ENOXAPARIN 40 MG/0.4 ML (LOVENOX) SYR SC SCH (21:14)
[2020-08-16] MEDS: clonazePAM 0.5 MG (KlonoPIN) TAB PO PRN (21:14)
[2020-08-16] MEDS: MIRTAZAPINE 15 MG (REMERON) TAB PO SCH (21:15)
[2020-08-17] VITALS: BP 148/73
[2020-08-17] MEDS: VANCOMYCIN 125 MG CAPSULE PO SCH ×4 (00:06→18:19)
[2020-08-17 04:00] VITALS: BP 114/68
[2020-08-17] MEDS: MULTIVIT W/MINERALS TAB (THERAGRAN M) PO SCH (05:45)
[2020-08-17 05:55] LABS: HEMOGLOBIN 12.6 g/dL (11.5-16.0); MEAN PLATELET VOLUME 10.4 fL (9.0-12.2); WHITE BLOOD COUNT 6.4 10^3/uL (4.3-11.0)
[2020-08-17 06:11] LABS: CHLORIDE 115 MMOL/L (98-107); POTASSIUM 4.3 MMOL/L (3.6-5.0); SODIUM 140 MMOL/L (135-145)
[2020-08-17 06:12] LABS: CALCIUM 8.3 MG/DL (8.5-10.1); GLUCOSE 96 MG/DL (70-105)
[2020-08-17 06:14] LABS: CARBON DIOXIDE 17 MMOL/L (21-32)
[2020-08-17 06:16] LABS: GFR ESTIMATED > 60
[2020-08-17 06:17] LABS: BUN/CREATININE RATIO 13
[2020-08-17] MEDS: CHOLESTYRAMINE 4 GM (QUESTRAN LITE, PREVALITE) PKT PO SCH ×2 (06:47→15:58)
[2020-08-17] MEDS: DORZOLAMIDE 2% 10 ML BTL (TRUSOPT) OD SCH ×2 (07:54→21:29)
[2020-08-17 08:36] VITALS: BP 136/65
[2020-08-17] MEDS: buPROPion 100 MG (WELLBUTRIN) TAB PO SCH (09:41)
[2020-08-17] MEDS: SIMETHICONE 80 MG (MYLICON) CHEW PO SCH ×4 (09:41→21:29)
[2020-08-17] MEDS: ASCORBIC ACID (VIT C) 500 MG TABLET PO SCH (09:41)
[2020-08-17] MEDS: GABAPENTIN 600 MG (NEURONTIN) TAB PO SCH ×3 (09:41→21:29)
[2020-08-17] MEDS: ASPIRIN E.C. 81 MG (ECOTRIN) TAB PO SCH ×2 (09:41→21:28)
[2020-08-17] MEDS: MYCOPHENOLIC 360 MG PO SCH ×2 (09:42→21:30)
[2020-08-17] MEDS: FAMOTIDINE 20 MG (PEPCID) TABLET PO SCH (09:42)
[2020-08-17] MEDS: LACTOBACILLUS ACIDOPHILUS (PROBIOTIC) CAPSULE PO SCH (09:42)
[2020-08-17] MEDS: ALOSETRON PO SCH ×2 (09:42→21:30)
[2020-08-17] MEDS: DICYCLOMINE 10 MG (BENTYL) CAP PO SCH ×4 (09:42→21:29)
[2020-08-17] MEDS: BACLOFEN 10 MG (LIORESAL) TAB PO SCH ×2 (09:42→21:28)
[2020-08-17] MEDS: ARTIFICAL TEARS 0.4 ML UNIT DOSE (REFRESH PLUS) OD SCH ×2 (09:42→21:30)
[2020-08-17] MEDS: SENNA W/DOCUSATE (SENOKOT S) TABLET PO SCH ×2 (09:43→20:19)
[2020-08-17] MEDS: TACROLIMUS 1 MG (PROGRAF) CAP NON-FORMULARY PO SCH ×2 (09:43→21:30)
--- NOTE | 2020-08-17 11:01 | Progress Note ---
Subjective Subjective/Events-last exam Pt states she is feeling fairly well. She had no BM overnight, and had some more formed stool yesterday, but this morning loose again. Is eating okay and denies abdominal pain. Objective Exam Last Set of Vital Signs Vital Signs Date Time Temp Pulse Resp B/P (MAP) Pulse Ox O2 Delivery O2 Flow Rate FiO2 08/17/20 08:36 36.1 76 16 136/65 (88) 100 Room Air Capillary Refill : Less Than 3 Seconds I&O Intake and Output 08/17/20 00:00 Intake Total 1460 ml Balance 1460 ml Intake Oral 1460 ml # Voids 11 # Bowel Movements 3 General: Alert, No Acute Distress Lungs: Clear to Auscultation, Normal Air Movement Heart: Regular Rate, No Murmurs Abdomen: Normal Bowel Sounds, Soft, No Tenderness Extremities: No Edema Psych/Mental Status: Mood NL Results/Procedures Lab Laboratory Tests 08/16/20 16:24: Glucometer 86 08/17/20 05:16: White Blood Count 6.4, Red Blood Count 4.18, Hemoglobin 12.6, Hematocrit 37, Mean Corpuscular Volume 89, Mean Corpuscular Hemoglobin 30, Mean Corpuscular Hemoglobin Concent 34, Red Cell Distribution Width 13.3, Platelet Count 173, Mean Platelet Volume 10.4, Sodium Level 140, Potassium Level 4.3, Chloride Level 115H, Carbon Dioxide Level 17L, Anion Gap 8, Blood Urea Nitrogen 9, Creatinine 0.70, Estimat Glomerular Filtration Rate > 60, BUN/Creatinine Ratio 13, Glucose Level 96, Calcium Level 8.3L Microbiology 08/12/20 Fecal Leukocyte Stain - Final, Complete 08/12/20 C. difficile GDH Antigen & Toxins - Final, Complete 08/12/20 Stool Culture - Final, Complete 08/12/20 Urine Culture - Final, Complete NO GROWTH 08/12/20 Blood Culture - Preliminary, Resulted No growth 08/12/20 Influenza Types A,B Antigen (IRENE) - Final, Complete Assessment/Plan Assessment/Plan (1) C. difficile colitis Status: Acute Assessment & Plan: Was recently on abx for UTI. Stool output decreasing, continuing PO vancomycin. 08/17 tolerating oral intake and with significantly decreasing stool output, will hold IVF and anticipate likely d/c to [facility] tomorrow. (2) Generalized weakness Status: Acute Assessment & Plan: Will likely need at least [facility] on d/c, patient is in agreement. (3) History of renal transplant Status: Chronic Assessment & Plan: Continue home anti-rejection medications. (4) DVT prophylaxis Status: Acute Assessment & Plan: Enoxaparin MAYANK DE LEÓN MD Aug 17, 2020 11:01
[2020-08-17 12:41] VITALS: BP 134/87
[2020-08-17 16:00] VITALS: BP 136/68
--- NOTE | 2020-08-17 16:23 | Physician Query Clarification ---
"Physician Query-General Query to Physician: The medical record reflects the following clinical scenario: History/Risk factors: on Tacrolimus, Hx of C-Diff, Recent ABX use for UTI Clinical Findings: Stool sample from day of admission pos for C. Diff, Diarrhea documented on day of admission Treatment: PO Vancomycin, Lactobacillus, DCd Meropenem, Metronidazole Question: Can you further specify C. Difficile Colitis per the clinical indicators above? Please document response in the Progress Notes or Discharge Summary. 1. C. Difficile Colitis present on admission 2. C. Difficile Colitis (as currently documented in the progress note) 3. Other, with explanation of clinical findings 4. Clinically undetermined, no explanation for clinical findings Please remember a lack of response to the above will prompt a phone page by CDI/coding staff. In responding to this query, please exercise your independent professional judgment. The purpose of this communication is to more accurately reflect the complexity of your patients condition. The fact that a question is asked does not imply that any particular answer is desired or expected. Thank you for timely response to this clarification. Nidia Boothe, MSN, RN RN Specialist-Clinical Doc Improvement CD -Health Info Mgmt Operations [address] [facility] t: [phone] | f: [phone] If you are unable to reach me at my extension, I may be working from home. Please contact me at [phone] PHYSICIAN RESPONSE: Based on the clinical findings in the record, please respond to the query above on this document as an addendum. Physician Response: Physician Response 1 If you have questions please contact: Contracting Manager: Ext: Thank you for your time and cooperation. Clinical Senior Client Advisor/Contracting Manager This is a permanent part of the medical record NIDIA BOOTHE Aug 17, 2020 16:23 AMYANK DE LEÓN MD Aug 18, 2020 21:17"
--- NOTE | 2020-08-17 16:46 | Physician Query Clarification ---
Physician Query-General Query to Physician: Clinical Validation Clarification : Howard Buchanan UTI has been documented in the medical record. After study, do you consider Urinary Tract Infection a clinically valid d iagnosis? If not clinically valid, please document "Urinary Tract Infection was ruled out" on the progress notes and/or discharge summary. 1. Not agreed, UTI is not clinically valid/ruled out 2. Agreed, UTI is a clinically valid diagnosis, now resolved 3. Other, with explanation of the clinical findings 4. Clinically undetermined, no explanation for the clinical findings Additional information: Admission VS/LABS P 97, RR 18, BP 113/71, SpO2 97% T 37.4, WBC 19.8, Urine culture: No Growth Treatment: Meropenem, Metronidazole, Please remember a lack of response to the above will prompt a phone page by CDI/coding staff. In responding to this query, please exercise your independent professional judgment. The purpose of this communication is to more accurately reflect the complexity of your patients condition. The fact that a question is asked does not imply that any particular answer is desired or expected. Thank you for timely response to this clarification. Nidia Boothe, MSN, RN RN Specialist-Clinical Doc Improvement CD -Health Info Mgmt Operations [address] [facility] t: [phone] | f: [phone] If you are unable to reach me at my extension, I may be working from home. Please contact me at [phone] PHYSICIAN RESPONSE: Based on the clinical findings in the record, please respond to the query above on this document as an addendum. Physician Response: Physician Response 1 If you have questions please contact: E Commerce Marketing Analyst: Ext: Thank you for your time and cooperation. Clinical [place] Headman/E Commerce Marketing Analyst This is a permanent part of the medical record NIDIA BOOTHE Aug 17, 2020 16:46 MAYANK DE LEÓN MD Aug 18, 2020 21:16
[2020-08-17 20:24] VITALS: BP 114/64
[2020-08-17] MEDS: clonazePAM 0.5 MG (KlonoPIN) TAB PO PRN (21:28)
[2020-08-17] MEDS: ENOXAPARIN 40 MG/0.4 ML (LOVENOX) SYR SC SCH (21:28)
[2020-08-17] MEDS: MIRTAZAPINE 15 MG (REMERON) TAB PO SCH (21:29)
[2020-08-18 00:10] VITALS: BP 121/67
[2020-08-18] MEDS: VANCOMYCIN 125 MG CAPSULE PO SCH ×2 (00:14→05:57)
[2020-08-18 04:13] VITALS: BP 141/67
[2020-08-18] MEDS: MULTIVIT W/MINERALS TAB (THERAGRAN M) PO SCH (05:57)
[2020-08-18 06:19] LABS: MEAN PLATELET VOLUME 10.3 fL (9.0-12.2); WHITE BLOOD COUNT 6.5 10^3/uL (4.3-11.0)
[2020-08-18 06:35] LABS: CHLORIDE 112 MMOL/L (98-107); POTASSIUM 4.3 MMOL/L (3.6-5.0); SODIUM 140 MMOL/L (135-145)
[2020-08-18 06:36] LABS: CALCIUM 8.8 MG/DL (8.5-10.1); GLUCOSE 90 MG/DL (70-105)
[2020-08-18 06:38] LABS: CARBON DIOXIDE 19 MMOL/L (21-32)
[2020-08-18 06:40] LABS: GFR ESTIMATED > 60
[2020-08-18 06:41] LABS: BUN/CREATININE RATIO 14
[2020-08-18] MEDS: CHOLESTYRAMINE 4 GM (QUESTRAN LITE, PREVALITE) PKT PO SCH (07:09)
[2020-08-18 08:00] VITALS: BP 146/69
[2020-08-18] MEDS: DORZOLAMIDE 2% 10 ML BTL (TRUSOPT) OD SCH (08:05)
[2020-08-18] MEDS: ARTIFICAL TEARS 0.4 ML UNIT DOSE (REFRESH PLUS) OD SCH (08:05)
[2020-08-18] MEDS: ALOSETRON PO SCH (08:06)
[2020-08-18] MEDS: MYCOPHENOLIC 360 MG PO SCH (08:07)
[2020-08-18] MEDS: FAMOTIDINE 20 MG (PEPCID) TABLET PO SCH (08:07)
[2020-08-18] MEDS: TACROLIMUS 1 MG (PROGRAF) CAP NON-FORMULARY PO SCH (08:08)
[2020-08-18] MEDS: SENNA W/DOCUSATE (SENOKOT S) TABLET PO SCH (08:08)
[2020-08-18] MEDS: ASPIRIN E.C. 81 MG (ECOTRIN) TAB PO SCH (08:09)
[2020-08-18] MEDS: ASCORBIC ACID (VIT C) 500 MG TABLET PO SCH (08:09)
[2020-08-18] MEDS: buPROPion 100 MG (WELLBUTRIN) TAB PO SCH (08:09)
[2020-08-18] MEDS: LACTOBACILLUS ACIDOPHILUS (PROBIOTIC) CAPSULE PO SCH (08:09)
[2020-08-18] MEDS: DICYCLOMINE 10 MG (BENTYL) CAP PO SCH (08:10)
[2020-08-18] MEDS: GABAPENTIN 600 MG (NEURONTIN) TAB PO SCH (08:10)
[2020-08-18] MEDS: BACLOFEN 10 MG (LIORESAL) TAB PO SCH (08:11)
[2020-08-18] MEDS: SIMETHICONE 80 MG (MYLICON) CHEW PO SCH (08:16)
[2020-08-18] MEDS ORDERED: VANC125C5 PO (08:58)
--- NOTE | 2020-08-18 08:59 | Discharge Summary ---
Discharge Summary Hospital Course Hospital Course Date of Admission: Aug 12, 2020 at 18:40 Admission Diagnosis : UTI suspect ESBL placed on Meropenem Parkinson's disease Falls Renal transplant status h/o C diff colitis Inability to ambulate Family Physician/Provider: Rosas Caban Aprn Date of Discharge: 08/18/20 Discharge Diagnosis: C diff colitis Debility Hospital Course: Pt admitted with suspected UTI, urine culture negative, had massive diarrhea and found to have c diff colitis, started on vancomycin and after a few days was doing well with significantly decreased stool output but still weak and requiring further therapy so she was discharged to custodial facility. Labs and Pending Lab Test: Laboratory Tests 08/17/20 16:00: Coronavirus 2019 ([facility]) Negative 08/18/20 06:05: White Blood Count 6.5, Red Blood Count 4.36, Hemoglobin 13.0, Hematocrit 38, Mean Corpuscular Volume 87, Mean Corpuscular Hemoglobin 30, Mean Corpuscular Hemoglobin Concent 34, Red Cell Distribution Width 13.1, Platelet Count 180, Mean Platelet Volume 10.3, Sodium Level 140, Potassium Level 4.3, Chloride Level 112H, Carbon Dioxide Level 19L, Anion Gap 9, Blood Urea Nitrogen 10, Creatinine 0.70, Estimat Glomerular Filtration Rate > 60, BUN/Creatinine Ratio 14, Glucose Level 90, Calcium Level 8.8 Microbiology 08/12/20 Fecal Leukocyte Stain - Final, Complete 08/12/20 C. difficile GDH Antigen & Toxins - Final, Complete 08/12/20 Stool Culture - Final, Complete 08/12/20 Urine Culture - Final, Complete NO GROWTH 08/12/20 Blood Culture - Preliminary, Resulted No growth 08/12/20 Influenza Types A,B Antigen (IRENE) - Final, Complete Home Meds Active Vancomycin HCl 125 Mg Capsule 125 Mg PO Q6HR 6 Days Cefdinir 300 Mg Capsule 300 Mg PO BID Metronidazole 250 Mg Tablet 250 Mg PO BID Reported Nephro-Rodrick Tablet (Folic Acid/Vitamin B Comp W-C) 0.8 Mg Tablet 0.8 Mg PO DAILY Amlodipine Besylate 2.5 Mg Tablet 2.5 Mg PO DAILY Mirtazapine 7.5 Mg Tablet 7.5 Mg PO HS Lotronex (Alosetron HCl) 0.5 Mg Tab 0.5 Mg PO BID Restasis (Cyclosporine) 1 Each Droperette 1 Each OD BID Livalo (Pitavastatin Calcium) 1 Mg Tablet 2 Mg PO DAILY Dicyclomine HCl 20 Mg Tablet 10 Mg PO QID TAKES 1/2 OF A 20MG TAB Bupropion HCl 100 Mg Tablet 100 Mg PO DAILY Gabapentin 600 Mg Tablet 600 Mg PO TID Mycophenolic Acid (Mycophenolate Sodium) 360 Mg Tablet.dr 360 Mg PO BID Flonase Allergy Relief (Fluticasone Propionate) 9.9 Ml [place].susp 2 [place] NS DAILY PRN Baclofen 10 Mg Tablet 5 Mg PO BID TAKES 1/2 OF A 10MG TAB Clonazepam 0.5 Mg Tablet 0.25 Mg PO DAILY PRN TAKES 1/2 OF A 0.5MG TAB Acid Filer And Sander (FAMOTIDINE) (Famotidine) 20 Mg Tablet 20 Mg PO DAILY Azopt (Brinzolamide) 10 Ml Btl 1 Drop OD BID Cranberry (Cranberry Fruit Concentrate) 450 Mg Capsule 450 Mg PO BID Vitamin C (Ascorbate Calcium) 500 Mg Tablet 500 Mg PO DAILY Adult Low Dose Aspirin EC (Aspirin) 81 Mg Tablet.dr 81 Mg PO BID Prograf (Tacrolimus) 1 Mg Capsule 1 Mg PO BID Probiotic (L.acidoph & Paracasei,B.lactis) 1 Each Capsule 1 Cap PO DAILY Imodium Multi-Symptom Rel Cplt (Loperamide HCl/Simethicone) 1 Each Tablet 1 Tab PO DAILY PRN Skilled NF Admit to: [facility] Certification (SNF) I certify that SNF services are required to be given on an inpatient basis because of the above named patient's need for custodial care on a continuing basis for the conditions(s) for which he/she was receiving inpatient hospital services prior to his/her transfer to the SNF. [facility] Facility Order: Nursing Services, Nurse General Duty-Evaluate & Treat, Physical Therapy-Evaluate & Treat Oxygen Delivery Method: Room Air Discharge Diet: Regular Diet Daily Activity as Tolerated: Yes Mayank Lawrence Aug 18, 2020 08:59 Discharge Physical Exam General: Alert, No Acute Distress Lungs: Clear to Auscultation, Normal Air Movement Heart: Regular Rate, No Murmurs Abdomen: Normal Bowel Sounds, Soft, No Tenderness Psych/Mental Status: Mental Status MAYANK OBRIEN MD Aug 18, 2020 08:59
[2020-08-18 11:40] VITALS: BP 144/72
[2020-08-18 11:55] VITALS: BP 144/72
== END 2020-08-18 11:54 | DRG 372 ==
LOC: EDUNIT# 16:16 → ER 16:17 → 4TH 18:40
PROVIDERS: ADMIT Internal Medicine; ATTEND Family Medicine
DX: A04.72 Enterocolitis due to Clostridium difficile, not specified as recurrent (principal); Z94.0 Kidney transplant status; G20 Parkinson's disease; Z20.822 Contact with and (suspected) exposure to COVID-19; I48.91 Unspecified atrial fibrillation; E78.00 Pure hypercholesterolemia, unspecified; M19.90 Unspecified osteoarthritis, unspecified site; R53.1 Weakness; G89.29 Other chronic pain; M54.9 Dorsalgia, unspecified; H40.9 Unspecified glaucoma; F41.9 Anxiety disorder, unspecified; F32.9 Major depressive disorder, single episode, unspecified; W18.30XA Fall on same level, unspecified, initial encounter; Y92.002 Bathroom of unspecified non-institutional (private) residence as the place of occurrence of the external cause; Z88.5 Allergy status to narcotic agent; Z90.49 Acquired absence of other specified parts of digestive tract; Z79.82 Long term (current) use of aspirin
CPT/HCPCS: 36415; 51701; 71045; 80048; 80053; 81000; 82962; 83605; 85007; 85025; 85027; 86141; 87015; 87040; 87045; 87046; 87088; 87324; 87449; 87635; 87804; 87899; 89055; 94760

== ENCOUNTER 2020-09-02 02:03 | Observation (INO) | payer MEDICARE, OTHER ==
[~2020-09-02] VITALS: Ht 155 cm; Wt 55.2 kg
[~2020-09-02 02:03] MED LIST changes: +VANC125C5 PO
[2020-09-02 03:57] LABS: BILIRUBIN,URINE NEGATIVE (NEGATIVE); CLARITY,URINE CLEAR; COLOR,URINE YELLOW; GLUCOSE, URINE (UA) NEGATIVE (NEGATIVE); KETONES,URINE NEGATIVE (NEGATIVE); LEUKOCYTE ESTERASE ,URINE NEGATIVE (NEGATIVE); NITRITE,URINE NEGATIVE (NEGATIVE); PH,URINE 6.5 (5-9); PROTEIN,URINE NEGATIVE (NEGATIVE)
[2020-09-02 04:07] LABS: BACTERIA,URINE NEGATIVE /HPF; RBC,URINE RARE /HPF; SQUAMOUS EPITHELIAL CELL,UR RARE /HPF
[2020-09-02 04:22] LABS: BASOPHILS % (AUTO) 0 % (0-10); EOSINOPHILS % (AUTO) 0 % (0-10); HEMATOCRIT 37 % (35-52); HEMOGLOBIN 12.5 g/dL (11.5-16.0); LYMPHOCYTES # (AUTO) 0.7 10^3/uL (1.0-4.0); LYMPHOCYTES % (AUTO) 5 % (12-44); MEAN CORPUSCULAR HEMOGLOBIN 30 pg (25-34); MEAN CORPUSCULAR HGB CONC 34 g/dL (32-36); MEAN CORPUSCULAR VOLUME 89 fL (80-99); MEAN PLATELET VOLUME 10.2 fL (9.0-12.2); MONOCYTES # (AUTO) 0.8 10^3/uL (0.0-1.0); MONOCYTES % (AUTO) 6 % (0-12); NEUTROPHILS # (AUTO) 11.7 10^3/uL (1.8-7.8); NEUTROPHILS % (AUTO) 88 % (42-75); PLATELET COUNT 187 10^3/uL (130-400); WHITE BLOOD COUNT 13.3 10^3/uL (4.3-11.0)
[2020-09-02 04:39] LABS: ALANINE AMINOTRANSFERASE 19 U/L (0-55); ALBUMIN 4.2 GM/DL (3.2-4.5); ALKALINE PHOSPHATASE 70 U/L (40-136); BILIRUBIN,TOTAL 1.3 MG/DL (0.1-1.0); BUN/CREATININE RATIO 13; CALCIUM 9.3 MG/DL (8.5-10.1); CARBON DIOXIDE 17 MMOL/L (21-32); CHLORIDE 107 MMOL/L (98-107); GFR ESTIMATED > 60; GLUCOSE 114 MG/DL (70-105); MAGNESIUM 1.9 MG/DL (1.6-2.4); POTASSIUM 4.3 MMOL/L (3.6-5.0); SODIUM 137 MMOL/L (135-145); TOTAL PROTEIN 7.5 GM/DL (6.4-8.2)
[2020-09-02 04:41] LABS: LYMPHOCYTES % (MANUAL) 8 %; MONOCYTES % (MANUAL) 4 %; NEUTROPHILS % (MANUAL) 88 %; RBC MORPH NORMAL
--- NOTE | 2020-09-02 05:58 | ED General ---
General Chief Complaint: General Problems/Pain Stated Complaint: GENERALIZED WEAKNESS,FALLS Nursing Triage Note: PRESENTS [facility]IA [facility] C[facility] FROM HOME WITH C/O WEAKNESS. 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 PT DENIES INJURY OR PAIN. REPORTS HX CHRONIC UTIS. DENIES URINARY S/S. Nursing Sepsis Screen: No Definite Risk Source of Information: Patient, EMS Exam Limitations: No Limitations History of Present Illness Date Seen by Provider: Sep 02, 2020 Time Seen by Provider: 02:09 Initial Comments This 78-year-old woman presents via EMS after having a nonprobiotic for in her home. She ambulates with a walker. She became rather weak this evening and lowered herself down on the walker. She has had episodes like this in the past when she has had urinary tract infections or C. difficile. Patient states she does not feel like she has either 1 of these things at this time. She denies injuring herself in any way. Her is unable to get her up off the floor when she falls in this way. Allergies and Home Medications Allergies Coded Allergies: codeine (Unverified Allergy, Unknown, 02/12/17) morphine (Verified Allergy, Unknown, NAUSEA, 02/12/17) Home Medications Alosetron HCl 0.5 Mg Tab, 0.5 MG PO BID, (Reported) Amlodipine Besylate 2.5 Mg Tablet, 2.5 MG PO DAILY, (Reported) Ascorbate Calcium 500 Mg Tablet, 500 MG PO DAILY, (Reported) Aspirin 81 Mg Tablet.dr, 81 MG PO BID, (Reported) Baclofen 10 Mg Tablet, 5 MG PO BID, (Reported) TAKES 1/2 OF A 10MG TAB Brinzolamide 10 Ml Btl, 1 DROP OD BID, (Reported) Bupropion HCl 100 Mg Tablet, 100 MG PO DAILY, (Reported) Clonazepam 0.5 Mg Tablet, 0.25 MG PO DAILY PRN for ANXIETY, (Reported) TAKES 1/2 OF A 0.5MG TAB Cranberry Fruit Concentrate 450 Mg Capsule, 450 MG PO BID, (Reported) Cyclosporine 1 Each [place]pe[place], 1 EACH OD BID, (Reported) Dicyclomine HCl 20 Mg Tablet, 10 MG PO QID, (Reported) TAKES 1/2 OF A 20MG TAB Famotidine 20 Mg Tablet, 20 MG PO DAILY, (Reported) Fluticasone Propionate 9.9 Ml [place].susp, 2 SPRAY NS DAILY PRN for CONGESTION, (Reported) Folic Acid/Vitamin B Comp W-C 0.8 Mg Tablet, 0.8 MG PO DAILY, (Reported) Gabapentin 600 Mg Tablet, 600 MG PO TID, (Reported) L.acidoph & Paracasei,B.lactis 1 Each Capsule, 1 CAP PO DAILY, (Reported) Loperamide HCl/Simethicone 1 Each Tablet, 1 TAB PO DAILY PRN for DIARRHEA, (Reported) Mirtazapine 7.5 Mg Tablet, 7.5 MG PO HS, (Reported) Mycophenolate Sodium 360 Mg Tablet.dr, 360 MG PO BID, (Reported) Pitavastatin Calcium 1 Mg Tablet, 2 MG PO DAILY, (Reported) Tacrolimus 1 Mg Capsule, 1 MG PO BID, (Reported) Vancomycin HCl 125 Mg Capsule, 125 MG PO Q6HR Prescribed by: MAYANK DE LEÓN on 08/18/20 4812 Patient Home Medication List Home Medication List Reviewed: Yes Review of Systems Review of Systems Constitutional: see HPI EENTM: no symptoms reported Respiratory: no symptoms reported Cardiovascular: no symptoms reported Gastrointestinal: no symptoms reported Genitourinary: no symptoms reported : No Musculoskeletal: see HPI Skin: no symptoms reported Psychiatric/Neurological: See HPI Hematologic/Lymphatic: No Symptoms Reported Immunological/Allergic: no symptoms reported Past Sjdshpo-Wdibep-Awiupi Hx Past Med/Social Hx: Reviewed Nursing Past Med/Soc Hx Patient Social History Alcohol Use: Denies Use Smoking Status: Never a Smoker 2nd Hand Smoke Exposure: No Recent Infectious Disease Expo: No Recent Hopitalizations: No (DECEMBER 2016-) Immunizations Up To Date Tetanus Booster (TDap): Unknown PED Vaccines UTD: No Date of Pneumonia Vaccine: Jul 30, 2020 Date of Influenza Vaccine: Jun 04, 2020 Seasonal Allergies Seasonal Allergies: Yes Past Medical History Surgeries: Yes (COCHLEAR IMPLANT, CARDIAC ABLATION, AORTIC VALVE, KIDNEY TRANSPLANT) Appendectomy, Cardiac, Dialysis, Ear Surgery, Eye Surgery, Hysterectomy, Kidney Transplant, Nephrectomy, Oophorectomy, Orthopedic, Renal, Tonsillectomy, Valve Replacement Respiratory: Yes Pneumonia Currently Using CPAP: No Currently Using BIPAP: No Cardiac: Yes ( CHF; AORTIC PIG VALVE ; PAROXYSMAL ATRIAL FIB. 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 Sexually Transmitted Disease: No HIV/AIDS: No Genitourinary: Yes (BILATERAL NEPHRECTOMY AND RENAL TRANSPLANT, dialysis prior to transplant) Kidney Infection, Renal Failure, Polycystic Kidney Disease Gastrointestinal: Yes (H.PYLORI) Chronic Diarrhea, Polyps, C-Diff Musculoskeletal: Yes (FREQUENT FALLS/USES WALKER) Degenerate Disk Disease, Arthritis, Chronic Back Pain Endocrine: Yes Parathyroid Disease HEENT: Yes (LEFT EYE REMOVED DUE TO UVEITIS; RIGHT COCHLEAR IMPLANT) Cataract, Glaucoma Hearing Impairment: Hard of Hearing, Hearing Aide Left Cancer: Yes Kidney Psychosocial: Yes Anxiety, Depression Integumentary: No Blood Disorders: No Adverse Reaction/Blood Tranf: No (HAS HAD BLOOD WITH NO REACTION) Family Medical History Alzheimer's disease 19 MOTHER (later in life) Dementia 19 MOTHER No Pertinent Family Hx PAST SURGICAL HISTORY: -LEFT EYE REMOVED/ARTIFICIAL EYE DUE TO UVEITIS -RIGHT COCHLEAR IMPLANT -DIALYSIS SHUNT LEFT ARM--DIALYSIS X 4 YEARS -MULTIPLE REVISIONS OF DIALYSIS AV GRAFT -PERITONEAL DIALYSIS SHUNT -BILATERAL NEPHRECTOMY WITH RENAL TRANSPLANT-IN RLQ OF ABDOMEN--6 YEARS AGO--FOR POLYCYSTIC KIDNEY DISEASE -CARDIAC ABLATION -AORTIC VALVE REPLACEMENT WITH PIG VALVE -TONSILLECTOMY -APPENDECTOMY -HYSTERECTOMY/ LATER BSO -CARDIAC CATH 2010--NON-OBSTRUCTIVE DISEASE, NO INTERVENTION -BILATERAL PULMONARY VEIN ABLATION WIHT STAPLE AMPTUATION OF LEFT ATRIAL APPENDAGE AT SAME TIME AORTIC VALVE REPLACEMENT -EGD/COLONOSCOPIES/POLYPECTOMIES -EXCISION OF LEFT HIP HEMATOMA 01/2017 [facility] [place]. Physical Exam Vital Signs Vital Signs - First Documented 09/02/20 02:05 Temp 36.6 Pulse 84 Resp 16 B/P (MAP) 131/56 (81) Pulse Ox 100 O2 Delivery Room Air Capillary Refill : Less Than 3 Seconds Height, Weight, BMI Height: 5'1.00" Weight: 127lbs. 1.0oz. [id number]; 22.00 BMI Method:Stated General Appearance: No Apparent Distress, WD/WN HEENT: PERRL/EOMI, Normal ENT Inspection Neck: Normal Inspection Respiratory: Lungs Clear, Normal Breath Sounds, No Accessory Muscle Use Cardiovascular: Regular Rate, Rhythm, No Edema, No Murmur Gastrointestinal: Normal Bowel Sounds, Soft Back: Normal Inspection Extremity: Normal Inspection, No Pedal Edema Neurologic/Psychiatric: Alert, Oriented x3, No Motor/Sensory Deficits, Normal Mood/Affect, contracting executive II-XII Norm as Tested, Other (Difficulty with gait) Skin: Normal Color, Warm/Dry Progress/Results/Core Measures Suspected Sepsis Recent Fever Within 48 Hours: No Infection Criteria Present: Suspected New Infection New/Unexplained Altered Menta: No Sepsis Screen: No Definite Risk SIRS Temperature: Pulse: 84 Respiratory Rate: 16 Laboratory Tests 09/02/20 04:15: White Blood Count 13.3H Blood Pressure 131 /56 Mean: 81 Laboratory Tests 09/02/20 04:15: Creatinine 0.80, Platelet Count 187, Total Bilirubin 1.3H Results/Orders Lab Results Laboratory Tests Test 09/02/20 03:50 09/02/20 04:15 Range/Units Urine Color YELLOW Urine Clarity CLEAR Urine pH 6.5 5-9 Urine Specific [place] 1.010 L 1.016-1.022 Urine Protein NEGATIVE NEGATIVE Urine Glucose (UA) NEGATIVE NEGATIVE Urine Ketones NEGATIVE NEGATIVE Urine Nitrite NEGATIVE NEGATIVE Urine Bilirubin NEGATIVE NEGATIVE Urine Urobilinogen 0.2 < = 1.0 MG/DL Urine Leukocyte Esterase NEGATIVE NEGATIVE Urine RBC (Auto) NEGATIVE NEGATIVE Urine RBC RARE /HPF Urine WBC NONE /HPF Urine Squamous Epithelial Cells RARE /HPF Urine Crystals NONE /LPF Urine Bacteria NEGATIVE /HPF Urine Casts NONE /LPF Urine Mucus NEGATIVE /LPF Urine Culture Indicated NO White Blood Count 13.3 H 4.3-11.0 10^3/uL Red Blood Count 4.16 3.80-5.11 10^6/uL Hemoglobin 12.5 11.5-16.0 g/dL Hematocrit 37 35-52 % Mean Corpuscular Volume 89 80-99 fL Mean Corpuscular Hemoglobin 30 25-34 pg Mean Corpuscular Hemoglobin Concent 34 32-36 g/dL Red Cell Distribution Width 14.0 10.0-14.5 % Platelet Count 187 130-400 10^3/uL Mean Platelet Volume 10.2 9.0-12.2 fL Immature Granulocyte % (Auto) 1 % Neutrophils (%) (Auto) 88 H 42-75 % Lymphocytes (%) (Auto) 5 L 12-44 % Monocytes (%) (Auto) 6 0-12 % Eosinophils (%) (Auto) 0 0-10 % Basophils (%) (Auto) 0 0-10 % Neutrophils # (Auto) 11.7 H 1.8-7.8 10^3/uL Lymphocytes # (Auto) 0.7 L 1.0-4.0 10^3/uL Monocytes # (Auto) 0.8 0.0-1.0 10^3/uL Eosinophils # (Auto) 0.0 0.0-0.3 10^3/uL Basophils # (Auto) 0.0 0.0-0.1 10^3/uL Immature Granulocyte # (Auto) 0.1 0.0-0.1 10^3/uL Neutrophils % (Manual) 88 % Lymphocytes % (Manual) 8 % Monocytes % (Manual) 4 % Blood Morphology Comment NORMAL Sodium Level 137 135-145 MMOL/L Potassium Level 4.3 3.6-5.0 MMOL/L Chloride Level 107 98-107 MMOL/L Carbon Dioxide Level 17 L 21-32 MMOL/L Anion Gap 13 5-14 MMOL/L Blood Urea Nitrogen 10 7-18 MG/DL Creatinine 0.80 0.60-1.30 MG/DL Estimat Glomerular Filtration Rate > 60 BUN/Creatinine Ratio 13 Glucose Level 114 H 70-105 MG/DL Calcium Level 9.3 8.5-10.1 MG/DL Corrected Calcium 9.1 8.5-10.1 MG/DL Magnesium Level 1.9 1.6-2.4 MG/DL Total Bilirubin 1.3 H 0.1-1.0 MG/DL Aspartate Amino Transf (AST/SGOT) 23 5-34 U/L Alanine Aminotransferase (ALT/SGPT) 19 0-55 U/L Alkaline Phosphatase 70 40-136 U/L Total Protein 7.5 6.4-8.2 GM/DL Albumin 4.2 3.2-4.5 GM/DL My Orders Orders - CIERA LOPEZ MD Cbc With Automated Diff (09/02/20 02:09) Comprehensive Metabolic Panel (09/02/20 02:09) Magnesium (09/02/20 02:09) Ua Culture If Indicated (09/02/20 02:09) Ed Iv/Invasive Line Start (09/02/20 02:09) Manual Differential (09/02/20 04:15) Vital Signs/I&O 09/02/20 02:05 Temp 36.6 Pulse 84 Resp 16 B/P (MAP) 131/56 (81) Pulse Ox 100 O2 Delivery Room Air Capillary Refill : Less Than 3 Seconds Blood Pressure Mean: 81 Progress Note : Progress Note Work-up was unremarkable. We attempted to get patient up to walk her but she did not do well, even with use of a walker. Concerned that she may be overmedicated as she takes multiple sedating medications. She may also be deconditioned. She and her are concerned about safety at home. When she falls, he cannot get her up. I discussed the situation with Dr. Suggs. We will admit, hold her medications, and consult physical therapy. Departure Communication (Admissions) Time/Spoke to Admitting Phy: 05:10 Dr. Suggs Impression Primary Impression: Generalized weakness Additional Impression: Multiple falls Disposition: 01 HOME, SELF-CARE Condition: Stable Admissions Decision to Admit Reason: Admit from ER (General) Decision to Admit/Date: Sep 02, 2020 Time/Decision to Admit Time: 05:00 Departure-Patient Inst. Referrals: [facility] (PCP) Primary Care Physician ANGELINE GUZMAN APRN (Family) Primary Care Physician CIERA LOPEZ MD Sep 02, 2020 05:57
[2020-09-02 06:03] VITALS: BP 138/74
[2020-09-02] MEDS ORDERED: CATHETER FLUSH 10 ML SYR IV PRN (06:15)
[2020-09-02 08:00] VITALS: BP 123/70
--- NOTE | 2020-09-02 10:34 | Physical Therapy Evaluation ---
PT Evaluation-General Medical Diagnosis Admission Date Sep 02, 2020 at 05:13 Medical Diagnosis: generalized weakness/falls Onset Date: Sep 02, 2020 Therapy Diagnosis Therapy Diagnosis: debility/weakness Height/Weight Height (Feet): 5 Height (Inches): 1.00 Weight (Pounds): 127 Weight (Ounces): 1.0 Precautions Precautions/Isolations: Fall Prevention, Standard Precautions Referral Physician: Ifeanyi Reason for Referral: Evaluation/Treatment Medical History Pertinent Medical History: Atrial Fib, HTN, Neuropathy, Parkinson's, Renal Insufficiency Current History EMS secondary to slid to floor pulling up brief. Reviewed History: Yes Social History Home: Single Level Current Living Status: Spouse Prior Prior Level of Function SCALE: Activities may be completed with or without assistive devices. 5-Pcqpdlnfyx-xvyczma completes the activity by him/herself with no assistance from a helper. 5-Set-up or Clean-up Assistance-helper sets up or cleans up; patient completes activity. [place] assists only prior to or following the activity. 4-Supervision or Touching Assistance-helper provides verbal cues and/or touching/steadying and/or contact guard assistance as patient completes activity. Assistance may be provided throughout the activity or intermittently. 3-Partial/Moderate Assistance-helper does LESS THAN HALF the effort. [place] lifts, holds or supports trunk or limbs, but provides less than half the effort. 2-Substantial/Maximal Assistance-helper does MORE THAN HALF the effort. [place] lifts or holds trunk or limbs and provides more than half the effort. 3-Cjvrzfkwg-hihcmb does ALL the effort. Patient does none of the effort to complete the activity. Or, the assistance of 2 or more helpers is required for the patient to complete the activity. If activity was not attempted, code reason: 7-Patient Refused. 9-Not Applicable-not attempted and the patient did not perform the activity before the current illness, exacerbation or injury. 10-Not Attempted due to Environmental Limitations-(lack of equipment, weather restraints, etc.). 88-Not Attempted due to Medical Conditions or Safety Concerns. Bed Mobility: 5 Transfers (B,C,W/C): 5 Gait: 5 Indoor Mobility (Ambulation): Needed Some Help Prior Devices Use: Walker PT Evaluation-Current Subjective Patient agrees to PT. Objective Patient Orientation: Person, Time, Situation ROM/Strength ROM Lower Extremities bilateral LE WFL Strength Lower Extremities 3/5 grossly bilateral LE Integumentary/Posture Integumentary refer to nursing notes Bladder Incontinence: Yes Posture trunk flexed posture Neuromuscular (Tone, Coordination, Reflexes) Parkinson's gait Sensory Vision: Wears Glasses Hearing: Impaired Transfers Roll Left to Right (QC): 3 Sit to Lying (QC): 3 Lying to Sitting/Side of Bed(Q: 3 Sit to Stand (QC): 3 Chair/Fqq-xb-Flyon Xfer(QC): 3 Toilet Transfer (QC): 3 Gait Does the Patient Walk?: Yes Mode of Locomotion: Walk Anticipated Mode of Locomotion: Walk Walk 10 feet (QC): 3 Walk 50 ft with 2 Turns(QC): 3 Walk 150 ft (QC): 3 Distance: 175' Gait Assistive Device: FWW Comments/Gait Description very slow, extended UE's with FWW use Balance Sitting Static: Fair Sitting Dynamic: Fair Standing Static: Fair Standing Dynamic: Fair Picking up an Object (QC): 88 Assessment/Needs 70 y.o. female, will benefit from skilled PT to address functional strength and mobility. Per SW, plan to dismiss to NH when medically stable. Rehab Potential: Fair PT Custodial Goals Custodial Goals PT Bearing Inspector Goals Time Frame: Sep 11, 2020 Roll Left & Right (QC): 5 Sit to Lying (QC): 5 Lying-Sitting on Side/Bed(QC): 5 Sit to Stand (QC): 5 Chair/Svu-wv-Freho Xfer(QC): 5 Toilet Transfer (QC): 5 Does the Patient Walk: Yes Walk 10 feet (QC): 4 Walk 50ft with 2 Turns (QC): 4 Walk 150 ft (QC): 4 PT Plan Problem List Problem List: Activity Tolerance, Functional Strength, Safety, Balance, Gait, Transfer, Bed Mobility Treatment/Plan Treatment Plan: Continue Plan of Care Treatment Plan: Bed Mobility, Education, Functional Activity Jose, Functional Strength, Gait, Safety, Therapeutic Exercise, Transfers Treatment Duration: Sep 11, 2020 Frequency: 6 times per week Estimated Hrs Per Day: .25 hour per day Patient and/or Family Agrees t: Yes Discharge Recommendations Therapy Discharge Recommendati: Other, See Comments ([facility] facility) Time/GCodes Time In: 920 Time Out: 932 Total Billed Treatment Time: 12 Total Billed Treatment 1 visit EVModC 12 min JACQUELYN,SARIAH PT Sep 02, 2020 10:34
[2020-09-02] MEDS: CATHETER FLUSH 10 ML SYR IV SCH ×3 (10:55→23:12)
[2020-09-02 12:16] VITALS: BP 126/71
[2020-09-02] MEDS ORDERED: CRAN450T9 PO (15:17)
[2020-09-02] MEDS ORDERED: PITA2TAB2 PO (15:56)
[2020-09-02 15:59] VITALS: BP 123/75
[2020-09-02] MEDS ORDERED: PROMETHAZINE 25 MG (PHENERGAN) TAB PO PRN (18:30)
[2020-09-02] MEDS: ONDANSETRON 4 MG (ZOFRAN) ORAL DISSOLVE TAB PO PRN (18:31)
[2020-09-02] MEDS ORDERED: PATIENT MAY USE OWN MEDS, ALL MC SCH (18:45)
[2020-09-02] MEDS ORDERED: ARTIFICAL TEARS 0.4 ML UNIT DOSE (REFRESH PLUS) OD PRN (18:45)
[2020-09-02 19:41] VITALS: BP 127/72
--- NOTE | 2020-09-02 20:17 | History & Physical ---
HPI History of Present Illness: 70 yo with h/o renal transplant and h/o life threatening c diff infection that presented with multiple falls and increasing generalized weakness. Patient states that [facility]. states that once she got home she has not been up and around much since. Patient states that the weakness suddenly got worse last night and she was unable to get up and go to the bathroom and her called EMS. Denies any fever or chills. Source: patient, spouse Exam Limitations: no limitations Date seen by provider: Sep 02, 2020 Time Seen by Provider: 09:38 Attending Physician Erin Suggs MD PCP Center/[facility] [place] [facility] Consult Date of Admission Sep 02, 2020 at 05:13 Home Medications Home Medications Reviewed patient Home Medication Reconciliation performed by pharmacy medication reconciliations actuarial technician and/or nursing. Patients Allergies have been reviewed. Allergies Coded Allergies: codeine (Unverified Allergy, Unknown, 02/12/17) morphine (Verified Allergy, Unknown, NAUSEA, 02/12/17) FRY-Gcetyq-Virinf Hx Patient Social History Smoking Status: Never a Smoker 2nd Hand Smoke Exposure: No Recent Hopitalizations: No (DECEMBER 2016-) Alcohol Use?: No Have you traveled recently?: No Immunizations Up To Date Tetanus Booster (TDap): Unknown Date of Pneumonia Vaccine: Jul 30, 2020 Date of Influenza Vaccine: May 05, 2021 Past Medical History Past medical history 1. Aortic stenosis 2. Polycystic kidney disease 3. Depression 4. Hypertension 5. Hyperlipidemia 6. Paroxysmal atrial fibrillation 7. Diastolic dysfunction 8. 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 Gastroparesis Past surgical history 1. Tonsillectomy 2. Appendectomy 3. Hysterectomy 4. Right nephrectomy and transplant nephrectomy left 5. Aortic valve replacement with bilateral pulmonary vein ablation and staple amputation of the left atrial appendage Family Medical History Significant Family History: No Pertinent Family Hx Other Significan Family Hx: PAST SURGICAL HISTORY: -LEFT EYE REMOVED/ARTIFICIAL EYE DUE TO UVEITIS -RIGHT COCHLEAR IMPLANT -DIALYSIS SHUNT LEFT ARM--DIALYSIS X 4 YEARS -MULTIPLE REVISIONS OF DIALYSIS AV GRAFT -PERITONEAL DIALYSIS SHUNT -BILATERAL NEPHRECTOMY WITH RENAL TRANSPLANT-IN RLQ OF ABDOMEN--6 YEARS AGO--FOR POLYCYSTIC KIDNEY DISEASE -CARDIAC ABLATION -AORTIC VALVE REPLACEMENT WITH PIG VALVE -TONSILLECTOMY -APPENDECTOMY -HYSTERECTOMY/ LATER BSO -CARDIAC CATH 2010--NON-OBSTRUCTIVE DISEASE, NO INTERVENTION -BILATERAL PULMONARY VEIN ABLATION WIHT STAPLE AMPTUATION OF LEFT ATRIAL APPENDAGE AT SAME TIME AORTIC VALVE REPLACEMENT -EGD/COLONOSCOPIES/POLYPECTOMIES -EXCISION OF LEFT HIP HEMATOMA 01/2017 [facility] IN [place]. Family History: Alzheimer's disease 19 MOTHER (later in life) Dementia 19 MOTHER Review of Systems ([facility]) Constitutional: No chills, No fever; malaise, weakness EENTM: no symptoms reported; No mouth pain, No nose congestion, No nose pain Respiratory: no symptoms reported; No cough, No dyspnea on exertion, No short of breath Cardiovascular: no symptoms reported; No chest pain, No edema, No palpitations Gastrointestinal: loss of appetite, nausea; No vomiting Genitourinary: frequency; No hematuria Musculoskeletal: no symptoms reported; No back pain, No joint pain, No muscle pain Skin: no symptoms reported; No lesions, No rash Psychiatric/Neurological: Denies Numbness, Denies Paresthesia; Weakness Reviewed Test Results Reviewed Test Results Lab Laboratory Tests Test 09/02/20 03:50 09/02/20 04:15 Range/Units Urine Color YELLOW Urine Clarity CLEAR Urine pH 6.5 5-9 Urine Specific [place] 1.010 L 1.016-1.022 Urine Protein NEGATIVE NEGATIVE Urine Glucose (UA) NEGATIVE NEGATIVE Urine Ketones NEGATIVE NEGATIVE Urine Nitrite NEGATIVE NEGATIVE Urine Bilirubin NEGATIVE NEGATIVE Urine Urobilinogen 0.2 < = 1.0 MG/DL Urine Leukocyte Esterase NEGATIVE NEGATIVE Urine RBC (Auto) NEGATIVE NEGATIVE Urine RBC RARE /HPF Urine WBC NONE /HPF Urine Squamous Epithelial Cells RARE /HPF Urine Crystals NONE /LPF Urine Bacteria NEGATIVE /HPF Urine Casts NONE /LPF Urine Mucus NEGATIVE /LPF Urine Culture Indicated NO White Blood Count 13.3 H 4.3-11.0 10^3/uL Red Blood Count 4.16 3.80-5.11 10^6/uL Hemoglobin 12.5 11.5-16.0 g/dL Hematocrit 37 35-52 % Mean Corpuscular Volume 89 80-99 fL Mean Corpuscular Hemoglobin 30 25-34 pg Mean Corpuscular Hemoglobin Concent 34 32-36 g/dL Red Cell Distribution Width 14.0 10.0-14.5 % Platelet Count 187 130-400 10^3/uL Mean Platelet Volume 10.2 9.0-12.2 fL Immature Granulocyte % (Auto) 1 % Neutrophils (%) (Auto) 88 H 42-75 % Lymphocytes (%) (Auto) 5 L 12-44 % Monocytes (%) (Auto) 6 0-12 % Eosinophils (%) (Auto) 0 0-10 % Basophils (%) (Auto) 0 0-10 % Neutrophils # (Auto) 11.7 H 1.8-7.8 10^3/uL Lymphocytes # (Auto) 0.7 L 1.0-4.0 10^3/uL Monocytes # (Auto) 0.8 0.0-1.0 10^3/uL Eosinophils # (Auto) 0.0 0.0-0.3 10^3/uL Basophils # (Auto) 0.0 0.0-0.1 10^3/uL Immature Granulocyte # (Auto) 0.1 0.0-0.1 10^3/uL Neutrophils % (Manual) 88 % Lymphocytes % (Manual) 8 % Monocytes % (Manual) 4 % Blood Morphology Comment NORMAL Sodium Level 137 135-145 MMOL/L Potassium Level 4.3 3.6-5.0 MMOL/L Chloride Level 107 98-107 MMOL/L Carbon Dioxide Level 17 L 21-32 MMOL/L Anion Gap 13 5-14 MMOL/L Blood Urea Nitrogen 10 7-18 MG/DL Creatinine 0.80 0.60-1.30 MG/DL Estimat Glomerular Filtration Rate > 60 BUN/Creatinine Ratio 13 Glucose Level 114 H 70-105 MG/DL Calcium Level 9.3 8.5-10.1 MG/DL Corrected Calcium 9.1 8.5-10.1 MG/DL Magnesium Level 1.9 1.6-2.4 MG/DL Total Bilirubin 1.3 H 0.1-1.0 MG/DL Aspartate Amino Transf (AST/SGOT) 23 5-34 U/L Alanine Aminotransferase (ALT/SGPT) 19 0-55 U/L Alkaline Phosphatase 70 40-136 U/L Total Protein 7.5 6.4-8.2 GM/DL Albumin 4.2 3.2-4.5 GM/DL Physical Exam-([facility]) Physical Exam Vital Signs VS - Last 72 Hours, by Label 09/02/20 09/02/20 09/02/20 09/02/20 02:05 05:40 06:03 08:00 Temp 36.6 36.6 36.5 37.4 Pulse 84 96 95 98 Resp 16 17 20 20 B/P (MAP) 131/56 (81) 124/59 (81) 138/74 (95) 123/70 (87) Pulse Ox 100 99 97 98 O2 Delivery Room Air Room Air Room Air Room Air 09/02/20 09/02/20 09/02/20 12:16 15:59 19:41 Temp 37.2 37.2 37.3 Pulse 94 103 112 Resp 20 18 18 B/P (MAP) 126/71 (89) 123/75 (91) 127/72 (90) Pulse Ox 97 100 96 O2 Delivery Room Air Room Air Room Air Capillary Refill : Less Than 3 Seconds General Appearance: WD/WN, no apparent distress, thin HEENT: PERRL/EOMI Neck: non-tender, full range of motion, supple Respiratory: chest non-tender, lungs clear, normal breath sounds, no respiratory distress, no accessory muscle use Cardiovascular: normal peripheral pulses, regular rate, rhythm, no edema, no murmur Gastrointestinal: normal bowel sounds, non tender, soft Back: no CVA tenderness, no vertebral tenderness Extremities: normal range of motion, non-tender, normal inspection, no pedal edema, no calf tenderness, normal capillary refill Neurologic/Psychiatric: crop insurance claims adjuster II-XII nml as tested, alert, oriented x 3, motor weakness, sensory deficit Skin: normal color, warm/dry Lymphatic: no adenopathy Assessment/Plan Assessment/Plan Admission Status: Observation (1) Generalized weakness Status: Acute Assessment & Plan: - PT/OT to see patient, stopping baclofen, patient adamant about going home and not to SNF (2) Frequent falls Status: Chronic (3) Diabetes mellitus type 2 with complications Status: Chronic Assessment & Plan: - SSI/Accuchecks (4) Parkinsons Status: Acute (5) Hypertension Status: Chronic Qualifiers: Qualified Codes: I10 - Essential (primary) hypertension (6) History of Clostridioides difficile infection Status: Chronic (7) Kidney transplant recipient Status: Acute Assessment & Plan: - Continue anti-Rejection medications (8) DVT prophylaxis Status: Acute Assessment & Plan: - ERIN Laughlin MD Sep 02, 2020 20:17
[2020-09-02] MEDS ORDERED: BRINZOLAMIDE OD SCH (21:00)
[2020-09-02] MEDS: MYCOPHENOLIC 360 MG PO SCH (21:00)
[2020-09-02] MEDS ORDERED: NON-FORMULARY MEDICATION 1 EA EA (Cyclosporine (Restasis) 1 EACH) OD SCH (21:00)
[2020-09-02] MEDS: ALOSETRON PO SCH (21:01)
[2020-09-02] MEDS: ASPIRIN E.C. 81 MG (ECOTRIN) TAB PO SCH (21:01)
[2020-09-02] MEDS: DORZOLAMIDE 2% 10 ML BTL (TRUSOPT) OD SCH (21:02)
[2020-09-02] MEDS: TACROLIMUS 1 MG (PROGRAF) CAP NON-FORMULARY PO SCH ×2 (21:03→22:21)
[2020-09-02 23:32] VITALS: BP 116/71
[2020-09-03 04:49] VITALS: BP 108/67
[2020-09-03 06:15] LABS: BASOPHILS # (AUTO) 0.1 10^3/uL (0.0-0.1); BASOPHILS % (AUTO) 0 % (0-10); EOSINOPHILS # (AUTO) 0.1 10^3/uL (0.0-0.3); EOSINOPHILS % (AUTO) 0 % (0-10); HEMATOCRIT 39 % (35-52); HEMOGLOBIN 13.3 g/dL (11.5-16.0); LYMPHOCYTES # (AUTO) 1.8 10^3/uL (1.0-4.0); LYMPHOCYTES % (AUTO) 14 % (12-44); MEAN CORPUSCULAR HEMOGLOBIN 30 pg (25-34); MEAN CORPUSCULAR HGB CONC 34 g/dL (32-36); MEAN CORPUSCULAR VOLUME 89 fL (80-99); MEAN PLATELET VOLUME 10.3 fL (9.0-12.2); MONOCYTES # (AUTO) 1.1 10^3/uL (0.0-1.0); MONOCYTES % (AUTO) 9 % (0-12); NEUTROPHILS # (AUTO) 9.4 10^3/uL (1.8-7.8); NEUTROPHILS % (AUTO) 76 % (42-75); PLATELET COUNT 227 10^3/uL (130-400); WHITE BLOOD COUNT 12.4 10^3/uL (4.3-11.0)
[2020-09-03 06:36] LABS: ALANINE AMINOTRANSFERASE 17 U/L (0-55); ALBUMIN 4.1 GM/DL (3.2-4.5); ALKALINE PHOSPHATASE 76 U/L (40-136); BILIRUBIN,TOTAL 0.9 MG/DL (0.1-1.0); BUN/CREATININE RATIO 15; CALCIUM 9.3 MG/DL (8.5-10.1); CARBON DIOXIDE 15 MMOL/L (21-32); CHLORIDE 108 MMOL/L (98-107); GFR ESTIMATED > 60; GLUCOSE 104 MG/DL (70-105); LIPASE < 4 U/L (8-78); SODIUM 137 MMOL/L (135-145); TOTAL PROTEIN 7.5 GM/DL (6.4-8.2)
[2020-09-03] MEDS: ONDANSETRON 4 MG (ZOFRAN) ORAL DISSOLVE TAB PO PRN ×2 (06:57→09:43)
[2020-09-03 08:02] VITALS: BP 147/79
[2020-09-03] MEDS: ASPIRIN E.C. 81 MG (ECOTRIN) TAB PO SCH ×2 (09:43→21:15)
[2020-09-03] MEDS: FAMOTIDINE 20 MG (PEPCID) TABLET PO SCH (09:43)
[2020-09-03] MEDS: TACROLIMUS 1 MG (PROGRAF) CAP NON-FORMULARY PO SCH ×2 (09:44→21:18)
[2020-09-03] MEDS: MYCOPHENOLIC 360 MG PO SCH ×2 (09:45→21:19)
[2020-09-03] MEDS: buPROPion 100 MG (WELLBUTRIN) TAB PO SCH (09:45)
[2020-09-03] MEDS: DORZOLAMIDE 2% 10 ML BTL (TRUSOPT) OD SCH ×2 (09:45→21:16)
[2020-09-03] MEDS: ALOSETRON PO SCH ×2 (09:46→21:20)
--- NOTE | 2020-09-03 09:51 | Physical Therapy Daily Note ---
PT Daily Note-Current Subjective Patient is very emotional and declined OOB activity. Agrees to bed exercises only. Transfers SCALE: Activities may be completed with or without assistive devices. 3-Jwbshajeve-rifevxf completes the activity by him/herself with no assistance from a helper. 5-Set-up or Clean-up Assistance-helper sets up or cleans up; patient completes activity. [place] assists only prior to or following the activity. 4-Supervision or Touching Assistance-helper provides verbal cues and/or touching/steadying and/or contact guard assistance as patient completes activity. Assistance may be provided throughout the activity or intermittently. 3-Partial/Moderate Assistance-helper does LESS THAN HALF the effort. [place] lifts, holds or supports trunk or limbs, but provides less than half the effort. 2-Substantial/Maximal Assistance-helper does MORE THAN HALF the effort. [place] lifts or holds trunk or limbs and provides more than half the effort. 9-Aixbgvxmo-blbgkb does ALL the effort. Patient does none of the effort to complete the activity. Or, the assistance of 2 or more helpers is required for the patient to complete the activity. If activity was not attempted, code reason: 7-Patient Refused. 9-Not Applicable-not attempted and the patient did not perform the activity before the current illness, exacerbation or injury. 10-Not Attempted due to Environmental Limitations-(lack of equipment, weather restraints, etc.). 88-Not Attempted due to Medical Conditions or Safety Concerns. Exercises Supine Ex: Ankle pumps, Quad Set, Heel Slides, Straight leg raise, Hip abd/add Supine Reps: 12 (bilaterally) Assessment Patient tolerated treatment and remained in bed with bed alarm activated. PT to increase activity as patient allows or tolerates. PT Alf Goals Rib Trim Separator Goals PT Alf Goals Time Frame: Sep 11, 2020 Roll Left & Right (QC): 5 Sit to Lying (QC): 5 Lying-Sitting on Side/Bed(QC): 5 Sit to Stand (QC): 5 Chair/Llh-yl-Obmne Xfer(QC): 5 Toilet Transfer (QC): 5 Does the Patient Walk: Yes Walk 10 feet (QC): 4 Walk 50ft with 2 Turns (QC): 4 Walk 150 ft (QC): 4 PT Plan Treatment/Plan Treatment Plan: Continue Plan of Care Treatment Plan: Bed Mobility, Education, Functional Activity Jose, Functional Strength, Gait, Safety, Therapeutic Exercise, Transfers Treatment Duration: Sep 11, 2020 Frequency: 6 times per week Estimated Hrs Per Day: .25 hour per day Patient and/or Family Agrees t: Yes Time/GCodes Time In: 830 Time Out: 841 Total Billed Treatment Time: 11 Total Billed Treatment 1 visit EX 11 min SARIAH VALLADARES PT Sep 03, 2020 09:51
[2020-09-03 12:00] VITALS: BP 160/80
[2020-09-03] MEDS ORDERED: VANCOMYCIN INJECTION 0.1 MG in NS (IVPB) 250 ML IV SCH (12:30)
[2020-09-03] MEDS: VANCOMYCIN 125 MG CAPSULE PO SCH ×3 (12:54→23:13)
--- NOTE | 2020-09-03 13:05 | Progress Note ---
Subjective Subjective/Events-last exam Patient upset this AM and having anxiety about C Diff again. State that she is having alot of cramping. Diarrhea has slowed down. She did not try and eat or drink anything at breakfast time because she was not feeling good. Denies any fever or chills. Review of Systems Pulmonary: No Dyspnea, No Cough Cardiovascular: No: Chest Pain, Palpitations Gastrointestinal: Nausea, Abdominal Pain, Other (abdominal cramping) Neurological: Weakness, Incoordination Objective Exam Last Set of Vital Signs Vital Signs Date Time Temp Pulse Resp B/P (MAP) Pulse Ox O2 Delivery O2 Flow Rate FiO2 09/03/20 08:02 35.9 82 18 147/79 (101) 100 Room Air Capillary Refill : Less Than 3 Seconds I&O Intake and Output 09/03/20 00:00 Intake Total 700 ml Output Total 0 ml Balance 700 ml Intake Oral 700 ml Output Urine Total 0 ml # Voids 4 # Bowel Movements 5 Daily Weight Change Unsure General: Alert, Oriented X3, Mild Distress Lungs: Clear to Auscultation, Normal Air Movement Heart: Regular Rate, No Murmurs Abdomen: Soft, Other (diffuse ttp, normal bowel sounds, no gaurding or ) Extremities: No Edema, No Tenderness/Swelling Skin: No Rashes, No Breakdown Psych/Mental Status: Other (anxious and tearful during visit) Results/Procedures Lab Laboratory Tests 09/03/20 05:55: White Blood Count 12.4H, Red Blood Count 4.37, Hemoglobin 13.3, Hematocrit 39, Mean Corpuscular Volume 89, Mean Corpuscular Hemoglobin 30, Mean Corpuscular Hemoglobin Concent 34, Red Cell Distribution Width 14.0, Platelet Count 227, Mean Platelet Volume 10.3, Immature Granulocyte % (Auto) 1, Neutrophils (%) (Auto) 76H, Lymphocytes (%) (Auto) 14, Monocytes (%) (Auto) 9, Eosinophils (%) (Auto) 0, Basophils (%) (Auto) 0, Neutrophils # (Auto) 9.4H, Lymphocytes # (Auto) 1.8, Monocytes # (Auto) 1.1H, Eosinophils # (Auto) 0.1, Basophils # (Auto) 0.1, Immature Granulocyte # (Auto) 0.1, Sodium Level 137, Potassium Level 4.0, Chloride Level 108H, Carbon Dioxide Level 15L, Anion Gap 14, Blood Urea Nitrogen 12, Creatinine 0.80, Estimat Glomerular Filtration Rate > 60, BUN/Creatinine Ratio 15, Glucose Level 104, Calcium Level 9.3, Corrected Calcium 9.2, Total Bilirubin 0.9, Aspartate Amino Transf (AST/SGOT) 17, Alanine Aminotransferase (ALT/SGPT) 17, Alkaline Phosphatase 76, Total Protein 7.5, Albumin 4.1, Lipase < 4L Microbiology 09/03/20 C. difficile GDH Antigen & Toxins - Final, Complete Assessment/Plan Assessment/Plan (1) Generalized weakness Status: Acute Assessment & Plan: - PT/OT to see patient, stopping baclofen, patient adamant about going home and not to SNF 09/03: Reviewed meds, Patient tested + C diff, PT to work with patient (2) Frequent falls Status: Chronic (3) C. 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
[2020-09-03 16:00] VITALS: BP 143/73
[2020-09-03] MEDS: CATHETER FLUSH 10 ML SYR IV SCH ×3 (17:56→19:42)
[2020-09-03 19:47] VITALS: BP 136/67
[2020-09-03] MEDS: MIRTAZAPINE 15 MG (REMERON) TAB PO SCH (21:15)
[2020-09-03] MEDS: clonazePAM 0.5 MG (KlonoPIN) TAB PO PRN (23:04)
[2020-09-03 23:14] VITALS: BP 155/83
[2020-09-04 04:00] VITALS: BP 129/72
[2020-09-04] MEDS: VANCOMYCIN 125 MG CAPSULE PO SCH ×3 (05:13→17:24)
[2020-09-04 05:46] LABS: BASOPHILS % (AUTO) 0 % (0-10); EOSINOPHILS % (AUTO) 1 % (0-10); HEMATOCRIT 37 % (35-52); HEMOGLOBIN 12.8 g/dL (11.5-16.0); LYMPHOCYTES # (AUTO) 1.2 10^3/uL (1.0-4.0); LYMPHOCYTES % (AUTO) 15 % (12-44); MEAN CORPUSCULAR HEMOGLOBIN 30 pg (25-34); MEAN CORPUSCULAR HGB CONC 35 g/dL (32-36); MEAN CORPUSCULAR VOLUME 87 fL (80-99); MEAN PLATELET VOLUME 10.6 fL (9.0-12.2); MONOCYTES # (AUTO) 0.8 10^3/uL (0.0-1.0); MONOCYTES % (AUTO) 10 % (0-12); NEUTROPHILS # (AUTO) 6.1 10^3/uL (1.8-7.8); NEUTROPHILS % (AUTO) 74 % (42-75); PLATELET COUNT 222 10^3/uL (130-400); WHITE BLOOD COUNT 8.3 10^3/uL (4.3-11.0)
[2020-09-04 06:02] LABS: CHLORIDE 108 MMOL/L (98-107); POTASSIUM 3.6 MMOL/L (3.6-5.0); SODIUM 139 MMOL/L (135-145)
[2020-09-04 06:03] LABS: CALCIUM 9.3 MG/DL (8.5-10.1)
[2020-09-04 06:04] LABS: GLUCOSE 106 MG/DL (70-105); TOTAL PROTEIN 7.2 GM/DL (6.4-8.2)
[2020-09-04 06:05] LABS: CARBON DIOXIDE 17 MMOL/L (21-32)
[2020-09-04 06:06] LABS: BILIRUBIN,TOTAL 0.9 MG/DL (0.1-1.0)
[2020-09-04 06:07] LABS: ALKALINE PHOSPHATASE 56 U/L (40-136)
[2020-09-04 06:08] LABS: CREATININE SERUM 0.84 MG/DL (0.60-1.30); GFR ESTIMATED > 60
[2020-09-04 06:09] LABS: BUN/CREATININE RATIO 27
[2020-09-04 06:10] LABS: ALANINE AMINOTRANSFERASE 15 U/L (0-55)
[2020-09-04 08:00] VITALS: BP 130/62
[2020-09-04] MEDS: ASPIRIN E.C. 81 MG (ECOTRIN) TAB PO SCH ×2 (08:37→20:57)
[2020-09-04] MEDS: DORZOLAMIDE 2% 10 ML BTL (TRUSOPT) OD SCH ×2 (08:37→20:59)
[2020-09-04] MEDS: FAMOTIDINE 20 MG (PEPCID) TABLET PO SCH (08:37)
[2020-09-04] MEDS: MYCOPHENOLIC 360 MG PO SCH ×2 (08:38→20:59)
[2020-09-04] MEDS: ALOSETRON PO SCH ×2 (08:38→21:00)
[2020-09-04] MEDS: buPROPion 100 MG (WELLBUTRIN) TAB PO SCH (08:39)
[2020-09-04] MEDS: TACROLIMUS 1 MG (PROGRAF) CAP NON-FORMULARY PO SCH ×2 (08:39→20:59)
--- NOTE | 2020-09-04 08:46 | Physical Therapy Daily Note ---
PT Daily Note-Current Subjective Patient reports she is feeling much better today and agrees to PT. Mental Status Patient Orientation: Normal For Age Transfers SCALE: Activities may be completed with or without assistive devices. 8-Axsguphfwf-cegwadb completes the activity by him/herself with no assistance from a helper. 5-Set-up or Clean-up Assistance-helper sets up or cleans up; patient completes activity. [place] assists only prior to or following the activity. 4-Supervision or Touching Assistance-helper provides verbal cues and/or touching/steadying and/or contact guard assistance as patient completes activity. Assistance may be provided throughout the activity or intermittently. 3-Partial/Moderate Assistance-helper does LESS THAN HALF the effort. [place] lifts, holds or supports trunk or limbs, but provides less than half the effort. 2-Substantial/Maximal Assistance-helper does MORE THAN HALF the effort. [place] lifts or holds trunk or limbs and provides more than half the effort. 0-Xubggfxcb-brwzrn does ALL the effort. Patient does none of the effort to complete the activity. Or, the assistance of 2 or more helpers is required for the patient to complete the activity. If activity was not attempted, code reason: 7-Patient Refused. 9-Not Applicable-not attempted and the patient did not perform the activity before the current illness, exacerbation or injury. 10-Not Attempted due to Environmental Limitations-(lack of equipment, weather restraints, etc.). 88-Not Attempted due to Medical Conditions or Safety Concerns. Roll Left & Right (QC): 6 Sit to Lying (QC): 6 Lying to Sitting/Side of Bed(Q: 6 Sit to Stand (QC): 4 Chair/Acr-bh-Ckkbj Xfer(QC): 4 Gait Training Does the Patient Walk?: Yes Distance: 225' Walk 10 feet (QC): 4 Walk 50 ft with 2 Turns(QC): 4 Walk 150 ft (QC): 4 Gait Assistive Device: FWW safe and functional gait sequence with no deviation Exercises Seated Therapy Exercises: Ankle pumps, Long arc quads, Hip flexion Seated Reps: 12 Assessment Patient much improved on this date and is up in recliner with needs met. PT to increase activity as tolerated by patient. PT Retirement Goals Olive Picker Goals PT Olive Picker Goals Time Frame: Sep 11, 2020 Roll Left & Right (QC): 5 Sit to Lying (QC): 5 Lying-Sitting on Side/Bed(QC): 5 Sit to Stand (QC): 5 Chair/Aum-mi-Bmnwx Xfer(QC): 5 Toilet Transfer (QC): 5 Does the Patient Walk: Yes Walk 10 feet (QC): 4 Walk 50ft with 2 Turns (QC): 4 Walk 150 ft (QC): 4 PT Plan Treatment/Plan Treatment Plan: Continue Plan of Care Treatment Plan: Bed Mobility, Education, Functional Activity Jose, Functional Strength, Gait, Safety, Therapeutic Exercise, Transfers Treatment Duration: Sep 11, 2020 Frequency: 6 times per week Estimated Hrs Per Day: .25 hour per day Patient and/or Family Agrees t: Yes Time/GCodes Time In: 747 Time Out: 800 Total Billed Treatment Time: 13 Total Billed Treatment 1 visit FA 13 min SARIAH VALLADARES PT Sep 04, 2020 08:46
--- NOTE | 2020-09-04 11:42 | Progress Note - Hospitalist ---
Subjective HPI/CC On Admission Date Seen by Provider: Sep 04, 2020 Time Seen by Provider: 08:00 Subjective/Events-last exam Patient still appears quite anxious but after having 16 bowel movements yesterday had gone 3 hours since her last bowel movement upon my arrival. She reports no cramping thus far and has had no chills or fever. She reports she chronically feels cold and chronically has poor appetite although she states she has gained several pounds without edema issues prior to her current hospitaliz ation for C. difficile. About 2 weeks prior she had finished a round of antibiotics for urinary tract infection with history of C. difficile with sepsis in the past and one episode where she was on vancomycin orally for 6 months several years ago. Objective Exam Vital Signs Vital Signs Date Time Temp Pulse Resp B/P (MAP) Pulse Ox O2 Delivery O2 Flow Rate FiO2 09/04/20 08:00 35.9 90 16 130/62 (84) 97 Room Air Capillary Refill : Less Than 3 Seconds General Appearance: Anxious Respiratory: Chest Non Tender, Lungs Clear, Normal Breath Sounds, No Accessory Muscle Use, No Respiratory Distress Cardiovascular: Regular Rate, Rhythm, No Gallop, No JVD, Systolic Murmur (Soft 1-2 over 6) Gastrointestinal: Normal Bowel Sounds, Soft, Tenderness (Minimal generalized tenderness without rebound or guarding) Results/Procedures Lab Laboratory Tests 09/04/20 05:09 Patient resulted labs reviewed. Assessment/Plan Assessment and Plan Assess & Plan/Chief Complaint (1) Generalized weakness Secondary to C. difficile colitis white count coming down stool output decreasing indicative of response to oral vancomycin. Patient is improving with decreased stool output and has had problems with Questran in the past so we will hold. Discussed the importance of pushing fluids and also considering her history she should be cotreated with oral vancomycin anytime she is put on any other type of antibiotic with extension of oral vancomycin considering her history likely for at least a week if not longer after she finishes other antibiotic therapy. Status: Acute Assessment & Plan: - PT/OT to see patient, stopping baclofen, patient adamant about going home and not to SNF 09/03: Reviewed meds, Patient tested + C diff, PT to work with patient (2) Frequent falls Status: Chronic (3) C. 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
[2020-09-04 12:00] VITALS: BP 134/60
[2020-09-04] MEDS: CATHETER FLUSH 10 ML SYR IV SCH ×2 (13:12→21:00)
[2020-09-04 16:01] VITALS: BP 151/75
[2020-09-04] MEDS: ONDANSETRON 4 MG (ZOFRAN) ORAL DISSOLVE TAB PO PRN (16:06)
[2020-09-04] MEDS: MIRTAZAPINE 15 MG (REMERON) TAB PO SCH (20:58)
[2020-09-04] MEDS: clonazePAM 0.5 MG (KlonoPIN) TAB PO PRN (21:08)
[2020-09-05] VITALS: BP 132/72
[2020-09-05] MEDS: VANCOMYCIN 125 MG CAPSULE PO SCH ×3 (00:07→10:28)
[2020-09-05] MEDS: CATHETER FLUSH 10 ML SYR IV SCH (06:06)
[2020-09-05 08:09] VITALS: BP 157/77
[2020-09-05] MEDS: FAMOTIDINE 20 MG (PEPCID) TABLET PO SCH (09:00)
[2020-09-05] MEDS: ASPIRIN E.C. 81 MG (ECOTRIN) TAB PO SCH (09:00)
[2020-09-05] MEDS: TACROLIMUS 1 MG (PROGRAF) CAP NON-FORMULARY PO SCH ×2 (09:01→09:02)
[2020-09-05] MEDS: ALOSETRON PO SCH (09:01)
[2020-09-05] MEDS: buPROPion 100 MG (WELLBUTRIN) TAB PO SCH (09:01)
[2020-09-05] MEDS: DORZOLAMIDE 2% 10 ML BTL (TRUSOPT) OD SCH (09:02)
[2020-09-05] MEDS: MYCOPHENOLIC 360 MG PO SCH (09:03)
[2020-09-05] MEDS ORDERED: VANC250C12 PO (09:44)
[2020-09-05 10:31] VITALS: BP 157/77
--- NOTE | 2020-09-24 11:41 | Discharge Summary ---
Diagnosis/Chief Complaint Date of Admission Sep 02, 2020 at 05:50 Date of Discharge Sep 05, 2020 at 09:40 Discharge Date: Sep 05, 2020 Primary [facility] Aprn Discharge Summary Discharge Physical Exam Allergies: Coded Allergies: codeine (Unverified Allergy, Unknown, 02/12/17) morphine (Verified Allergy, Unknown, NAUSEA, 02/12/17) General Appearance: No Apparent Distress, Chronically ill Respiratory: Chest Non Tender, Lungs Clear, Normal Breath Sounds, No Accessory Muscle Use, No Respiratory Distress Cardiovascular: Regular Rate, Rhythm Gastrointestinal: Normal Bowel Sounds, No Organomegaly, No Pulsatile Mass, Non Tender, Soft Hospital Course Was the Problem List Reviewed?: Yes Patient presented to the emergency room with complaints of diarrhea nonbloody and increasing weakness. She is a frail white female with a history of C. difficile infection in the past that has required prolonged therapy with vancomycin she either does not get along with Flagyl or it was not effective. She had finished a course of antibiotics for urinary tract infection in the past several weeks and diarrhea began several days prior. There is no evidence for blood without significant cramping she denied chills or fever and denied dysuria or change in urinary frequency. She did test positive for C. difficile toxin and was initiated on oral vancomycin IV fluids and admitted for observation especially in light of her frailty past history of serious C. difficile infection and Parkinson's disease. In discussion with her she responded more quickly this time to oral vancomycin within several days was no longer having diarrhea with no abdominal pain and return of normal appetite. We did discuss with her history that if she does have to take antibiotics for any reason in the future she should be treated concurrently with oral vancomycin and the oral vancomycin I would recommend treating for 2 weeks after cessation of any other antibiotic that had been prescribed. Discussed that this would likely happen again should she receive nonvancomycin antibiotic therapy alone in the future. Considering her past history and the fact that she for past C. difficile reports she had been on vancomycin for months did call out refills of her vancomycin and would recommend another month of therapy. Labs (last 24 hrs) Microbiology 09/03/20 C. difficile GDH Antigen & Toxins - Final, Complete Patient resulted labs reviewed. Discussion & Recommendations Discharge Planning: >30 minutes discharge planning Discharge Home Medications: Active Scripts Active Vancocin HCl (Vancomycin HCl) 250 Mg Capsule 250 Mg PO TID 30 Days Reported Livalo (Pitavastatin Calcium) 2 Mg Tablet 2 Mg PO DAILY Cranberry (Cranberry Fruit) 450 Mg Tablet 450 Mg PO BID Nephro-Rodrick Tablet (Folic Acid/Vitamin B Comp W-C) 0.8 Mg Tablet 0.8 Mg PO DAILY Amlodipine Besylate 2.5 Mg Tablet 2.5 Mg PO DAILY Mirtazapine 7.5 Mg Tablet 7.5 Mg PO HS Lotronex (Alosetron HCl) 0.5 Mg Tab 0.5 Mg PO BID Restasis (Cyclosporine) 1 Each Droperette 1 Each OD BID Dicyclomine HCl 20 Mg Tablet 10 Mg PO QID TAKES 1/2 OF A 20MG TAB Bupropion HCl 100 Mg Tablet 100 Mg PO DAILY Gabapentin 600 Mg Tablet 600 Mg PO TID Mycophenolic Acid (Mycophenolate Sodium) 360 Mg Tablet.dr 360 Mg PO BID Flonase Allergy Relief (Fluticasone Propionate) 9.9 Ml [place].susp 2 [place] NS DAILY PRN Clonazepam 0.5 Mg Tablet 0.25 Mg PO DAILY PRN TAKES 1/2 OF A 0.5MG TAB Acid Supply Chain Procurement Manager (FAMOTIDINE) (Famotidine) 20 Mg Tablet 20 Mg PO DAILY Azopt (Brinzolamide) 10 Ml Btl 1 Drop OD BID Vitamin C (Ascorbate Calcium) 500 Mg Tablet 500 Mg PO DAILY Adult Low Dose Aspirin EC (Aspirin) 81 Mg Tablet.dr 81 Mg PO BID Prograf (Tacrolimus) 1 Mg Capsule 1 Mg PO BID Probiotic (L.acidoph & Paracasei,B.lactis) 1 Each Capsule 1 Cap PO DAILY Imodium Multi-Symptom Rel Cplt (Loperamide HCl/Simethicone) 1 Each Tablet 1 Tab PO DAILY PRN Instructions to patient/family Please see electronic discharge instructions given to patient. Copy Copies To 1: [facility]/YVONNE LEMUS MD Sep 24, 2020 11:41
== END 2020-09-05 09:40 | disposition home or self-care (01) ==
LOC: EDUNIT# 02:03 → ER 02:04 → 4TH 05:13 → UNDOADMOB 05:13 → 4TH 05:50 → UNDODISOB 09-05 10:30
PROVIDERS: ADMIT Family Medicine; ATTEND Internal Medicine
DX: R53.1 Weakness (principal); A04.72 Enterocolitis due to Clostridium difficile, not specified as recurrent; R29.6 Repeated falls; I48.91 Unspecified atrial fibrillation; I11.9 Hypertensive heart disease without heart failure; G20 Parkinson's disease; Q61.3 Polycystic kidney, unspecified; G89.29 Other chronic pain; M19.90 Unspecified osteoarthritis, unspecified site; M54.9 Dorsalgia, unspecified; E21.5 Disorder of parathyroid gland, unspecified; E78.00 Pure hypercholesterolemia, unspecified; E11.9 Type 2 diabetes mellitus without complications; F32.9 Major depressive disorder, single episode, unspecified; F41.9 Anxiety disorder, unspecified; Z86.19 Personal history of other infectious and parasitic diseases; Z88.5 Allergy status to narcotic agent; Z79.82 Long term (current) use of aspirin; Z79.899 Other long term (current) drug therapy; Z90.89 Acquired absence of other organs; Z94.0 Kidney transplant status; Z90.710 Acquired absence of both cervix and uterus; Z95.2 Presence of prosthetic heart valve
CPT/HCPCS: 51702; 80053 ×3; 81000; 83690; 83735; 85007; 85025 ×2; 85027; 87324; 87449; 97110; 97162; 97530; 99284; G0378; 36415

== ENCOUNTER 2020-11-18 02:14 | Observation (INO) | payer MEDICARE, OTHER ==
[~2020-11-18] VITALS: Ht 155 cm; Wt 54.8 kg
[~2020-11-18 02:14] MED LIST changes: +CRAN450T9 PO; +PITA2TAB2 PO; +VANC250C12 PO
--- NOTE | 2020-11-18 02:25 | ED General ---
General Stated Complaint: FALL Source of Information: Patient, EMS History of Present Illness Date Seen by Provider: Nov 18, 2020 Time Seen by Provider: 02:14 Initial Comments PT ARRIVES VIA EMS FROM HOME PT HAS HAD SOME GENERALIZED WEAKNESS TONIGHT AND HAS FALLEN X 2, EACH TIME WHILE GETTING UP TO GO TO THE BATHROOM STATES SHE DID BUMP HER FOREHEAD ON NIGHTSTAND. NO LOSS OF CONSCIOUSNESS NO PAIN IN HEAD OR NECK NO PAIN ANYWHERE NO DIZZINESS NO CHEST PAIN NO SHORTNESS OF BREATH NO NAUSEA/VOMITING NO PARESTHESIAS OR MOTOR DEFICITS NO FEVER NO COUGH OR URI SYMPTOMS PT IS ON ASPIRIN CALLED EMS BECAUSE HE WANTS HER CHECKED FOR UTI PT HAS HAD A RENAL TRANSPLANT AND HAS FREQUENT UTI'S. PT STATES THE LAST ONE WAS > 1 MONTH AGO. PT DENIES ANY URINARY SYMPTOMS PT ALSO HAS HISTORY OF PARKINSON'S WITH FREQUENT FALLS PT WITH MULTITUDE OF VISITS FOR SAME. ESPECIALLY IN THE LAST FEW MONTHS PT WITH HISTORY OF C. DIFFICILE DUE TO ANTIBIOTICS FOR UTI--08/2020 LAST URINE CULTURE WAS IN JULY 2020--GREW OUT SERRATIA, SENSITIVE TO ROCEPHIN PT HAS HAD COVID-19 VACCINATION PCP; [facility] Allergies and Home Medications Allergies Coded Allergies: codeine (Unverified Allergy, Unknown, 02/12/17) morphine (Verified Allergy, Unknown, NAUSEA, 02/12/17) Home Medications Alosetron HCl 0.5 Mg Tab, 0.5 MG PO BID, (Reported) Amlodipine Besylate 2.5 Mg Tablet, 2.5 MG PO DAILY, (Reported) Ascorbate Calcium 500 Mg Tablet, 500 MG PO DAILY, (Reported) Aspirin 81 Mg Tablet.dr, 81 MG PO BID, (Reported) Brinzolamide 10 Ml Btl, 1 DROP OD BID, (Reported) Bupropion HCl 100 Mg Tablet, 100 MG PO DAILY, (Reported) Clonazepam 0.5 Mg Tablet, 0.25 MG PO DAILY PRN for ANXIETY, (Reported) TAKES 1/2 OF A 0.5MG TAB Cranberry Fruit 450 Mg Tablet, 450 MG PO BID, (Reported) Cyclosporine 1 Each Droperette, 1 EACH OD BID, (Reported) Dicyclomine HCl 20 Mg Tablet, 10 MG PO QID, (Reported) TAKES 1/2 OF A 20MG TAB Famotidine 20 Mg Tablet, 20 MG PO DAILY, (Reported) Fluticasone Propionate 9.9 Ml [place].susp, 2 SPRAY NS DAILY PRN for CONGESTION, (Reported) Folic Acid/Vitamin B Comp W-C 0.8 Mg Tablet, 0.8 MG PO DAILY, (Reported) Gabapentin 600 Mg Tablet, 600 MG PO TID, (Reported) L.acidoph & Paracasei,B.lactis 1 Each Capsule, 1 CAP PO DAILY, (Reported) Loperamide HCl/Simethicone 1 Each Tablet, 1 TAB PO DAILY PRN for DIARRHEA, (Reported) Mirtazapine 7.5 Mg Tablet, 7.5 MG PO HS, (Reported) Mycophenolate Sodium 360 Mg Tablet.dr, 360 MG PO BID, (Reported) Pitavastatin Calcium 2 Mg Tablet, 2 MG PO DAILY, (Reported) Tacrolimus 1 Mg Capsule, 1 MG PO BID, (Reported) Vancomycin HCl 250 Mg Capsule, 250 MG PO TID Prescribed by: YVONNE SANCHEZ on 09/05/20 0944 Patient Home Medication List Home Medication List Reviewed: Yes Review of Systems Review of Systems Constitutional: see HPI; No chills, No diaphoresis, No dizziness, No fever; malaise, weakness EENTM: no symptoms reported Respiratory: no symptoms reported; No cough, No short of breath Cardiovascular: no symptoms reported; No chest pain Gastrointestinal: no symptoms reported; No abdominal pain, No nausea, No vomiting Genitourinary: no symptoms reported, see HPI Musculoskeletal: no symptoms reported Skin: no symptoms reported Psychiatric/Neurological: No Symptoms Reported; Denies Headache, Denies Numbness, Denies Paresthesia, Denies Seizure, Denies Tingling, Denies Weakness Hematologic/Lymphatic: No Symptoms Reported Immunological/Allergic: see HPI, transplant Past Ifpxezs-Hqfrxo-Werhge Hx Past Med/Social Hx: Reviewed and Corrections made Patient Social History Alcohol Use: Denies Use Smoking Status: Never a Smoker 2nd Hand Smoke Exposure: No Recent Hopitalizations: No (DECEMBER 2016-) Immunizations Up To Date Tetanus Booster (TDap): Unknown PED Vaccines UTD: No Date of Pneumonia Vaccine: Jul 30, 2020 Date of Influenza Vaccine: May 05, 2021 Seasonal Allergies Seasonal Allergies: Yes Past Medical History Surgeries: Yes (COCHLEAR IMPLANT, CARDIAC ABLATION, AORTIC VALVE, KIDNEY TRANSPLANT) Appendectomy, Cardiac, Dialysis, Ear Surgery, Eye Surgery, Hysterectomy, Kidney Transplant, Nephrectomy, Oophorectomy, Orthopedic, Renal, Tonsillectomy, Valve Replacement Respiratory: Yes Pneumonia Currently Using CPAP: No Currently Using BIPAP: No Cardiac: Yes ( CHF; AORTIC PIG VALVE ; PAROXYSMAL ATRIAL FIB. 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, Menopausal Sexually Transmitted Disease: No HIV/AIDS: No Genitourinary: Yes (BILATERAL NEPHRECTOMY AND RENAL TRANSPLANT, dialysis prior to transplant) Kidney Infection, Renal Failure, UTI-Chronic, Polycystic Kidney Disease Gastrointestinal: Yes (H.PYLORI) Chronic Diarrhea, Polyps, C-Diff Musculoskeletal: Yes (FREQUENT FALLS/USES WALKER) Degenerate Disk Disease, Arthritis, Chronic Back Pain Endocrine: Yes Parathyroid Disease HEENT: Yes (LEFT EYE REMOVED DUE TO UVEITIS; RIGHT COCHLEAR IMPLANT) Cataract, Glaucoma Hearing Impairment: Hard of Hearing, Hearing Aide Left Cancer: Yes Kidney Did You Recieve Any Treatments: Yes What Type of Treatment Did You: Surgical Intervention "FOUND A TINY SPOT OF CANCER" ON ONE OF HER KIDNEYS WHEN REMOVED DUE TO POLYCYSTIC KIDNEY DISEASE. NO FURTHER TREATMENT Psychosocial: Yes Anxiety, Depression Integumentary: No Blood Disorders: No Adverse Reaction/Blood Tranf: No (HAS HAD BLOOD WITH NO REACTION) Family Medical History Alzheimer's disease 19 MOTHER (later in life) Dementia 19 MOTHER No Pertinent Family Hx PAST SURGICAL HISTORY: -LEFT EYE REMOVED/ARTIFICIAL EYE DUE TO UVEITIS -RIGHT COCHLEAR IMPLANT -DIALYSIS SHUNT LEFT ARM--DIALYSIS X 4 YEARS -MULTIPLE REVISIONS OF DIALYSIS AV GRAFT -PERITONEAL DIALYSIS SHUNT -BILATERAL NEPHRECTOMY WITH RENAL TRANSPLANT-IN RLQ OF ABDOMEN--6 YEARS AGO--FOR POLYCYSTIC KIDNEY DISEASE -CARDIAC ABLATION -AORTIC VALVE REPLACEMENT WITH PIG VALVE -TONSILLECTOMY -APPENDECTOMY -HYSTERECTOMY/ LATER BSO -CARDIAC CATH 2010--NON-OBSTRUCTIVE DISEASE, NO INTERVENTION -BILATERAL PULMONARY VEIN ABLATION WIHT STAPLE AMPTUATION OF LEFT ATRIAL APPENDAGE AT SAME TIME AORTIC VALVE REPLACEMENT -EGD/COLONOSCOPIES/POLYPECTOMIES -EXCISION OF LEFT HIP HEMATOMA 01/2017 [facility] [place] Physical Exam Vital Signs Vital Signs - First Documented 11/18/20 02:14 Temp 36.7 Pulse 76 Resp 17 B/P (MAP) 144/72 (96) Pulse Ox 100 O2 Delivery Room Air Capillary Refill : Height, Weight, BMI Height: 5'1.00" Weight: 127lbs. 1.0oz. 57.325374dt; 22.97 BMI Method:Stated General Appearance: No Apparent Distress, WD/WN, Other (DOES NOT APPEAR ILL OR TO BE IN ANY DISCOMFORT OR DISTRESS. AWAKE AND ALERT) HEENT: Other (LEFT EYE IS ARTIFICIAL. NO EXTERNAL EVIDENCE OF TRAUMA TO HEAD; COCHLEAR IMPLANT ON RIGHT. 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 Norm as Tested Skin: Normal Color, Warm/Dry; No Ecchymosis; Other (NO EXTERNAL EVIDENCE OF TRAUMA NOTED ANYWHERE) Progress/Results/Core Measures Suspected Sepsis SIRS Temperature: Pulse: Respiratory Rate: Laboratory Tests 11/18/20 02:20: White Blood Count 7.4 Blood Pressure / Mean: Laboratory Tests 11/18/20 02:20: Creatinine 0.80, Platelet Count 188, Total Bilirubin 0.9 Results/Orders Lab Results Laboratory Tests Test 11/18/20 02:20 11/18/20 02:30 Range/Units White Blood Count 7.4 4.3-11.0 10^3/uL Red Blood Count 4.22 3.80-5.11 10^6/uL Hemoglobin 13.0 11.5-16.0 g/dL Hematocrit 38 35-52 % Mean Corpuscular Volume 90 80-99 fL Mean Corpuscular Hemoglobin 31 25-34 pg Mean Corpuscular Hemoglobin Concent 34 32-36 g/dL Red Cell Distribution Width 13.2 10.0-14.5 % Platelet Count 188 130-400 10^3/uL Mean Platelet Volume 10.9 9.0-12.2 fL Immature Granulocyte % (Auto) 0 % Neutrophils (%) (Auto) 68 42-75 % Lymphocytes (%) (Auto) 22 12-44 % Monocytes (%) (Auto) 8 0-12 % Eosinophils (%) (Auto) 1 0-10 % Basophils (%) (Auto) 1 0-10 % Neutrophils # (Auto) 5.1 1.8-7.8 10^3/uL Lymphocytes # (Auto) 1.6 1.0-4.0 10^3/uL Monocytes # (Auto) 0.6 0.0-1.0 10^3/uL Eosinophils # (Auto) 0.1 0.0-0.3 10^3/uL Basophils # (Auto) 0.0 0.0-0.1 10^3/uL Immature Granulocyte # (Auto) 0.0 0.0-0.1 10^3/uL Sodium Level 140 135-145 MMOL/L Potassium Level 4.0 3.6-5.0 MMOL/L Chloride Level 105 98-107 MMOL/L Carbon Dioxide Level 22 21-32 MMOL/L Anion Gap 13 5-14 MMOL/L Blood Urea Nitrogen 10 7-18 MG/DL Creatinine 0.80 0.60-1.30 MG/DL Estimat Glomerular Filtration Rate > 60 BUN/Creatinine Ratio 13 Glucose Level 98 70-105 MG/DL Calcium Level 9.5 8.5-10.1 MG/DL Corrected Calcium 9.5 8.5-10.1 MG/DL Magnesium Level 1.8 1.6-2.4 MG/DL Total Bilirubin 0.9 0.1-1.0 MG/DL Aspartate Amino Transf (AST/SGOT) 21 5-34 U/L Alanine Aminotransferase (ALT/SGPT) 10 0-55 U/L Alkaline Phosphatase 65 40-136 U/L Total Protein 6.9 6.4-8.2 GM/DL Albumin 4.0 3.2-4.5 GM/DL Urine Color YELLOW Urine Clarity CLEAR Urine pH 5.0 5-9 Urine Specific [place] 1.010 L 1.016-1.022 Urine Protein NEGATIVE NEGATIVE Urine Glucose (UA) NEGATIVE NEGATIVE Urine Ketones NEGATIVE NEGATIVE Urine Nitrite POSITIVE H NEGATIVE Urine Bilirubin NEGATIVE NEGATIVE Urine Urobilinogen 0.2 < = 1.0 MG/DL Urine Leukocyte Esterase TRACE H NEGATIVE Urine RBC (Auto) NEGATIVE NEGATIVE Urine RBC RARE /HPF Urine WBC 2-5 /HPF Urine Crystals /LPF Urine Bacteria MODERATE H /HPF Urine Casts NONE /LPF Urine Mucus NEGATIVE /LPF Urine Culture Indicated YES My Orders Orders - SHIRIN MEHTA DO Ct Head/Cervical Spine Wo (11/18/20 02:20) Cbc With Automated Diff (11/18/20 02:20) Comprehensive Metabolic Panel (11/18/20 02:20) Magnesium (11/18/20 02:20) Ua Culture If Indicated (11/18/20 02:20) Monitor-Rhythm Ecg Trace Only (11/18/20 02:20) Straight Cath For Spec.-Adult (11/18/20 02:20) Urine Culture (11/18/20 02:30) Ceftriaxone For Iv Use (Rocephin For I (11/18/20 03:15) Medications Given in ED Current Medications Medications Dose Ordered Sig/Lizzie Route Start Time Stop Time Status Last Admin Dose Admin Ceftriaxone Sodium 1000 mg/ Sterile Water 10 ml @ 200 mls/hr ONCE ONCE IV 11/18/20 03:15 11/18/20 03:17 DC 11/18/20 03:31 200 MLS/HR Vital Signs/I&O 11/18/20 02:14 Temp 36.7 Pulse 76 Resp 17 B/P (MAP) 144/72 (96) Pulse Ox 100 O2 Delivery Room Air Capillary Refill : Progress Note : Progress Note PT TEARFUL AT TIMES, STATES SHE HAS BEEN EMOTIONAL LATELY, "JUST GETS SCARED" IN GENERAL REGARDING HER HEALTH IN GENERAL. HE STATES SHE ALWAYS GETS LIKE THIS WHEN SHE HAS A UTI. INSISTS ON VANCOMYCIN DUE TO HISTORY OF C. DIFFICILE INSISTS ON ADMIT, STATES HE CAN'T TAKE CARE OF HER BECAUSE SHE IS TOO WEAK AND HE CAN'T HANDLE HER WHEN SHE GETS LIKE THIS--STATES HE CAN'T LIFT HER PT HAD NO COMPLAINTS DURING ENTIRE ER STAY NO DETERIORATION IN PT'S CONDITION DURING ER STAY. Diagnostic Imaging Comments CT HEAD/CERVICAL SPINE--NO ACUTE PROCESS, CHRONIC DEGENERATIVE CHANGES OF CERVICAL SPINE--PER [facility] VIA FAX AT 0070 Reviewed: Reviewed by Me Departure Communication (Admissions) [id number]--SPOKE WITH DR. DRIVER, HOSPITALIST FOR [facility]. ACCEPTS PT FOR ADMIT Impression Primary Impression: UTI (urinary tract infection) Additional Impressions: Generalized weakness Multiple falls Minor head injury without loss of consciousness Status post kidney transplant Hx of Clostridium difficile infection Disposition: ADMITTED INPATIENT Condition: Stable Admissions Decision to Admit Reason: Admit from ER (General) Decision to Admit/Date: Nov 18, 2020 Time/Decision to Admit Time: 03:50 Departure-Patient Inst. Referrals: [facility] [place] [facility] (PCP) Primary Care Physician ANGELINE GUZMAN APRN (Family) Primary Care Physician SHIRIN MEHTA DO Nov 18, 2020 02:25
[2020-11-18 02:39] LABS: BASOPHILS % (AUTO) 1 % (0-10); EOSINOPHILS # (AUTO) 0.1 10^3/uL (0.0-0.3); EOSINOPHILS % (AUTO) 1 % (0-10); HEMATOCRIT 38 % (35-52); LYMPHOCYTES # (AUTO) 1.6 10^3/uL (1.0-4.0); LYMPHOCYTES % (AUTO) 22 % (12-44); MEAN CORPUSCULAR HEMOGLOBIN 31 pg (25-34); MEAN CORPUSCULAR HGB CONC 34 g/dL (32-36); MEAN CORPUSCULAR VOLUME 90 fL (80-99); MEAN PLATELET VOLUME 10.9 fL (9.0-12.2); MONOCYTES # (AUTO) 0.6 10^3/uL (0.0-1.0); MONOCYTES % (AUTO) 8 % (0-12); NEUTROPHILS # (AUTO) 5.1 10^3/uL (1.8-7.8); NEUTROPHILS % (AUTO) 68 % (42-75); PLATELET COUNT 188 10^3/uL (130-400); WHITE BLOOD COUNT 7.4 10^3/uL (4.3-11.0)
[2020-11-18 02:41] LABS: BILIRUBIN,URINE NEGATIVE (NEGATIVE); CLARITY,URINE CLEAR; COLOR,URINE YELLOW; GLUCOSE, URINE (UA) NEGATIVE (NEGATIVE); KETONES,URINE NEGATIVE (NEGATIVE); LEUKOCYTE ESTERASE ,URINE TRACE (NEGATIVE); NITRITE,URINE POSITIVE (NEGATIVE); PROTEIN,URINE NEGATIVE (NEGATIVE)
[2020-11-18 02:51] LABS: BACTERIA,URINE MODERATE /HPF; RBC,URINE RARE /HPF
[2020-11-18 03:05] LABS: CHLORIDE 105 MMOL/L (98-107); SODIUM 140 MMOL/L (135-145)
[2020-11-18 03:06] LABS: CALCIUM 9.5 MG/DL (8.5-10.1)
[2020-11-18 03:07] LABS: GLUCOSE 98 MG/DL (70-105); TOTAL PROTEIN 6.9 GM/DL (6.4-8.2)
[2020-11-18 03:08] LABS: CARBON DIOXIDE 22 MMOL/L (21-32)
[2020-11-18 03:09] LABS: BILIRUBIN,TOTAL 0.9 MG/DL (0.1-1.0)
[2020-11-18 03:11] LABS: ALKALINE PHOSPHATASE 65 U/L (40-136); GFR ESTIMATED > 60
[2020-11-18 03:12] LABS: BUN/CREATININE RATIO 13
[2020-11-18 03:14] LABS: ALANINE AMINOTRANSFERASE 10 U/L (0-55); MAGNESIUM 1.8 MG/DL (1.6-2.4)
[2020-11-18] MEDS ORDERED: cefTRIAXone 1,000 MG in WATER (STERILE) FOR INJECTION 10 ML IV ONE (03:15)
[2020-11-18 04:45] VITALS: BP 139/63
[2020-11-18] MEDS ORDERED: ONDANSETRON 4 MG/2 ML (SDV) Z0FRAN IVP PRN (05:00)
[2020-11-18] MEDS ORDERED: ACETAMINOPHEN 500 MG TAB (TYLENOL) PO PRN (05:00)
[2020-11-18] MEDS ORDERED: 1/2 NS IV SOLUTION 1,000 ML IV SCH (05:00)
--- NOTE | 2020-11-18 05:26 | History & Physical-Hospitalist ---
History of Present Illness HPI/Chief Complaint Chief complaint: UTI with weakness History of present illness: This is a 70-year-old white female known to me from multiple hospital stays with history of recurrent UTI who presents once again to the ER with altered mental status and weakness and findings consistent with UTI. She has been in and out of inpatient rehab and halfway and home care for the last few years. Her takes care of most of her needs. I have restarted all of her home medications. She is eating and drinking well so I will stop the IV fluid. Rocephin initiated and awaiting urine culture. Source: patient, old records Exam Limitations: no limitations Date Seen 11/18/20 Time Seen by a Provider: 11:00 Attending Physician Chaya Gerber DO [facility] Referring Physician Date of Admission Nov 18, 2020 at 03:55 Home Medications & Allergies Home Medications Reviewed patient Home Medication Reconciliation performed by pharmacy medication reconciliations robotics testing technician and/or nursing. Patients Allergies have been reviewed. Allergies Allergies Coded Allergies codeine (Unverified Allergy, Unknown, 02/12/17) morphine (Verified Allergy, Unknown, NAUSEA, 02/12/17) Past Uhinqaq-Drkcvu-Uspxxq Hx Patient Social History Marrital Status: Employed/Student: retired Tobacco Use?: No Smoking Status: Never a Smoker Use of E-Cig and/or Vaping dev: No Substance use?: No Alcohol Use?: No Pt feels they are or have been: No Immunizations Up To Date Date of Influenza Vaccine: May 05, 2021 Tetanus Booster (TDap): Unknown Hepatitis A: No Hepatitis B: No PED Vaccines UTD: No Date of Pneumonia Vaccine: Jul 30, 2020 Seasonal Allergies Seasonal Allergies: Yes Current Status Communicates: Verbally Primary Language: [place] Preferred Spoken Language: [place] Is interpretation needed?: No Sensory deficits: Vision impairment, Hearing impairment Past Medical History Surgeries: Appendectomy, Cardiac, Dialysis, Ear Surgery, Eye Surgery, Hysterectomy, Kidney Transplant, Nephrectomy, Oophorectomy, Orthopedic, Renal, Tonsillectomy, Valve Replacement Pneumonia Currently Using CPAP: No Currently Using BIPAP: No Atrial Fibrillation, High Cholesterol, Hypertension, Irregular Heartbeat, Valvular Heart Disease 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 NO FURTHER TREATMENT Anxiety, Depression Blood Disorders: No Adverse Reaction/Blood Tranf: No (HAS HAD BLOOD WITH NO REACTION) Past medical history 1. Aortic stenosis 2. Polycystic kidney disease 3. Depression 4. Hypertension 5. Hyperlipidemia 6. Paroxysmal atrial fibrillation 7. Diastolic dysfunction 8. 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 Gastroparesis Past surgical history 1. Tonsillectomy 2. Appendectomy 3. Hysterectomy 4. Right nephrectomy and transplant nephrectomy left 5. Aortic valve replacement with bilateral pulmonary vein ablation and staple amputation of the left atrial appendage Family Medical History Alzheimer's disease 19 MOTHER (later in life) Dementia 19 MOTHER No Pertinent Family Hx PAST SURGICAL HISTORY: -LEFT EYE REMOVED/ARTIFICIAL EYE DUE TO UVEITIS -RIGHT COCHLEAR IMPLANT -DIALYSIS SHUNT LEFT ARM--DIALYSIS X 4 YEARS -MULTIPLE REVISIONS OF DIALYSIS AV GRAFT -PERITONEAL DIALYSIS SHUNT -BILATERAL NEPHRECTOMY WITH RENAL TRANSPLANT-IN RLQ OF ABDOMEN--6 YEARS AGO--FOR POLYCYSTIC KIDNEY DISEASE -CARDIAC ABLATION -AORTIC VALVE REPLACEMENT WITH PIG VALVE -TONSILLECTOMY -APPENDECTOMY -HYSTERECTOMY/ LATER BSO -CARDIAC CATH 2010--NON-OBSTRUCTIVE DISEASE, NO INTERVENTION -BILATERAL PULMONARY VEIN ABLATION WIHT STAPLE AMPTUATION OF LEFT ATRIAL APPENDAGE AT SAME TIME AORTIC VALVE REPLACEMENT -EGD/COLONOSCOPIES/POLYPECTOMIES -EXCISION OF LEFT HIP HEMATOMA 01/2017 [facility] [place] Review of Systems Constitutional: see HPI, weakness Psychiatric/Neurological: See HPI Physical Exam Physical Exam Vital Signs Vital Signs - First Documented 11/18/20 02:14 Temp 36.7 Pulse 76 Resp 17 B/P (MAP) 144/72 (96) Pulse Ox 100 O2 Delivery Room Air Capillary Refill : Less Than 3 Seconds Height, Weight, BMI Height: 5'1.00" Weight: 127lbs. 1.0oz. 57.160106hq; 22.80 BMI Method:Stated General Appearance: No Apparent Distress, Chronically ill Eyes: Right Eye Normal Inspection, Right Eye PERRL HEENT: PERRL/EOMI, Normal ENT Inspection, Pharynx Normal, Moist Mucous Membranes Neck: Full Range of Motion, Normal Inspection, Non Tender Respiratory: Chest Non Tender, Lungs Clear, Normal Breath Sounds, No Accessory Muscle Use, No Respiratory Distress Cardiovascular: Regular Rate, Rhythm, No Edema, No Gallop, No JVD, No Murmur, Normal Peripheral Pulses Gastrointestinal: Normal Bowel Sounds, No Organomegaly, No Pulsatile Mass, Non Tender, Soft Back: Normal Inspection, No CVA Tenderness, No Vertebral Tenderness Extremity: Normal Capillary Refill, Normal Inspection, Normal Range of Motion, Non Tender, No Calf Tenderness, No Pedal Edema Neurologic/Psychiatric: Alert, Oriented x3, No Motor/Sensory Deficits, Normal Mood/Affect, Abnormal Gait, Motor Weakness Skin: Normal Color, Warm/Dry Lymphatic: No Adenopathy Results Results/Procedures Labs Laboratory Tests 11/18/20 02:20 Patient resulted labs reviewed. Assessment/Plan Admission Diagnosis Assessment: UTI recurrent in type Parkinson's disease Falls Renal transplant status h/o C diff colitis Inability to ambulate Plan: Maintain vancomycin twice a day to prevent C. 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
--- NOTE | 2020-11-18 07:29 | Diagnostic Imaging Report ---
PROCEDURE: CT head and CT cervical spine without contrast. TECHNIQUE: Multiple contiguous axial images were obtained through the brain and cervical spine without the use of intravenous contrast. Sagittal and coronal reformations through the cervical spine were then performed. Auto Exposure Controls were utilized during the CT exam to meet ALARA standards for radiation dose reduction. DATE: November 18, 2020. COMPARISON: CT head, maxillofacial area, and cervical spine April 07, 2020. INDICATION: 70-year-old female, trauma. Head and neck pain. FINDINGS: There is a procedural device with lead extending into the cochlea on the right with postoperative changes of the right temporal bone. There is no identified skull fracture. There is nonspecific opacification in the right mastoid air cells. There is a left ocular prosthesis. There is no mass effect or midline shift. There is no acute intracranial hemorrhage. There is no abnormal extra-axial fluid collection. Visualized portions of the paranasal sinuses are well-aerated. There is no identified facet joint subluxation or dislocation. There are multilevel facet degenerative changes of the cervical spine. There is grade 1 anterolisthesis of C4 on C5 measuring 2 mm and also grade 1 anterolisthesis of C5 on C6 measuring 2 mm. There is no asymmetric widening of the cervical disc spaces. There is no prominent prevertebral soft tissue swelling. There is severe disc height loss at C6-C7 with a posterior disc osteophyte complex. CT is limited for assessment of disc pathology as well as evaluation of additional nonbony causes of pathology in the spinal canal. There is no identified acute fracture of the cervical spine. The visualized portions of the lungs are clear. There are atherosclerotic calcifications including bilateral carotid vascular calcifications. IMPRESSION: 1. No identified acute intracranial abnormality. 2. No identified acute abnormality of the cervical spine. 3. Degenerative changes of the cervical spine as above. There is no provided [employer] report for review. Dictated by: Dictated on workstation # [id number]
[2020-11-18 08:00] VITALS: BP 133/75
[2020-11-18] MEDS: VANCOMYCIN 125 MG CAPSULE PO SCH ×2 (08:59→20:41)
[2020-11-18] MEDS ORDERED: clonazePAM 0.5 MG (KlonoPIN) TAB PO PRN (10:45)
[2020-11-18] MEDS ORDERED: NON-FORMULARY MEDICATION 1 EA EA (Fluticasone Propionate (Flonase Allergy Relief) 2 SPRAY) NS PRN (10:45)
[2020-11-18] MEDS ORDERED: SIMETHICONE PO PRN (10:45)
[2020-11-18] MEDS ORDERED: [UNRECOGNIZED DRUG - OTHER] PO PRN (10:45)
[2020-11-18] MEDS ORDERED: LOPERAMIDE HCL PO PRN (10:45)
[2020-11-18] MEDS ORDERED: QUET25TA34 PO (11:31)
[2020-11-18] MEDS ORDERED: MULT-1136 PO (11:31)
[2020-11-18] MEDS ORDERED: BUPR-168 PO (11:31)
[2020-11-18 11:38] VITALS: BP 139/77
[2020-11-18] MEDS ORDERED: DICYCLOMINE HCL 10 MG PO SCH (13:00)
[2020-11-18] MEDS ORDERED: GABAPENTIN 600 MG (NEURONTIN) TAB PO SCH (13:00)
--- NOTE | 2020-11-18 14:08 | Physical Therapy Evaluation ---
PT Evaluation-General Medical Diagnosis Admission Date Nov 18, 2020 at 03:55 Medical Diagnosis: UTI/generalized weakness Onset Date: Nov 18, 2020 Therapy Diagnosis Therapy Diagnosis: debility Height/Weight Height (Feet): 5 Height (Inches): 1.00 Weight (Pounds): 127 Weight (Ounces): 1.0 Precautions Precautions/Isolations: Fall Prevention, Standard Precautions Referral Physician: Zabrina Reason for Referral: Evaluation/Treatment Medical History Pertinent Medical History: Atrial Fib, HTN, Neuropathy, Parkinson's, Renal Insufficiency Current History EMS from home secondary to fall x 2 Reviewed History: Yes Social History Home: Apartment Current Living Status: Spouse Entry Into Home: Level Entry Prior Prior Level of Function SCALE: Activities may be completed with or without assistive devices. 6-Cxwatodwbj-xfvhlzf completes the activity by him/herself with no assistance from a helper. 5-Set-up or Clean-up Assistance-helper sets up or cleans up; patient completes activity. [place] assists only prior to or following the activity. 4-Supervision or Touching Assistance-helper provides verbal cues and/or touching/steadying and/or contact guard assistance as patient completes activity. Assistance may be provided throughout the activity or intermittently. 3-Partial/Moderate Assistance-helper does LESS THAN HALF the effort. [place] lifts, holds or supports trunk or limbs, but provides less than half the effort. 2-Substantial/Maximal Assistance-helper does MORE THAN HALF the effort. [place] lifts or holds trunk or limbs and provides more than half the effort. 3-Pkbgoofdt-jszxvi does ALL the effort. Patient does none of the effort to complete the activity. Or, the assistance of 2 or more helpers is required for the patient to complete the activity. If activity was not attempted, code reason: 7-Patient Refused. 9-Not Applicable-not attempted and the patient did not perform the activity befo re the current illness, exacerbation or injury. 10-Not Attempted due to Environmental Limitations-(lack of equipment, weather re straints, etc.). 88-Not Attempted due to Medical Conditions or Safety Concerns. Bed Mobility: 5 Transfers (B,C,W/C): 5 Gait: 5 Stairs: 9 Indoor Mobility (Ambulation): Independent Stairs: Not Applicalbe Prior Devices Use: Walker PT Evaluation-Current Subjective Patient states, "I'm fine. I don't know why everyone is asking me how I am." Agrees to PT. Objective Patient Orientation: Person, Time, Situation ROM/Strength ROM Lower Extremities bilateral LE WFL Strength Lower Extremities 4-/5 grossly bilateral LE Integumentary/Posture Bowel Incontinence: No Bladder Incontinence: No Posture WFL Neuromuscular (Tone, Coordination, Reflexes) Parkinson's Sensory Vision: Wears Glasses Hearing: Impaired Transfers Roll Left to Right (QC): 6 Sit to Lying (QC): 6 Lying to Sitting/Side of Bed(Q: 6 Sit to Stand (QC): 4 Gait Mode of Locomotion: Walk Anticipated Mode of Locomotion: Walk Walk 10 feet (QC): 4 (SBA) Walk 50 ft with 2 Turns(QC): 4 (SBA) Walk 150 ft (QC): 4 (SBA) Gait Assistive Device: FWW Comments/Gait Description no deviation/functional gait sequence Balance Sitting Static: Normal Sitting Dynamic: Normal Standing Static: Normal Standing Dynamic: Good Picking up an Object (QC): 6 (donns socks) Assessment/Needs 70 y.o. female, will be seen short term by skilled PT to address functional strength and mobility to ensure safe return to home with spouse. Rehab Potential: Fair PT Short Term Goals Short Term Goals Time Frame: Nov 26, 2020 Roll Left & Right: 6 Sit to lyin Lying to sitting on side of be: 6 Sit to stand: 5 Chair/ffy-ng-fugyr transfer: 5 Toilet transfer: 5 Walk 10 feet: 5 Walk 50 feet with two turns: 5 Walk 150 feet: 5 PT Plan Problem List Problem List: Safety, Balance Treatment/Plan Treatment Plan: Continue Plan of Care Treatment Plan: Education, Functional Activity Jose, Functional Strength, Gait, Safety, Therapeutic Exercise, Transfers Treatment Duration: Nov 26, 2020 Frequency: 6 times per week Estimated Hrs Per Day: .25 hour per day Patient and/or Family Agrees t: Yes Discharge Recommendations Therapy Discharge Recommendati: Home & Family Time/GCodes Time In: 1324 Time Out: 1335 Total Billed Treatment Time: 11 Total Billed Treatment 1 visit EVModC 11 min SARIAH VALLADARES PT Nov 18, 2020 14:08
[2020-11-18] MEDS ORDERED: PATIENT MAY USE OWN MEDS, ALL MC SCH (14:30)
[2020-11-18] MEDS ORDERED: LOPERAMIDE 2 MG (IMODIUM) TABLET PO PRN (15:15)
[2020-11-18] MEDS ORDERED: FLUTICASONE NASAL SPRAY (FLONASE) 16 GM BTL NS PRN (15:15)
[2020-11-18] MEDS ORDERED: ARTIFICAL TEARS 0.4 ML UNIT DOSE (REFRESH PLUS) OD PRN (15:15)
[2020-11-18] MEDS: ENOXAPARIN 40 MG/0.4 ML (LOVENOX) SYR SC SCH (15:23)
[2020-11-18 15:25] VITALS: BP 150/66
--- NOTE | 2020-11-18 15:41 | Occupational Therapy Eval ---
OT Evaluation-General/PLF Medical Diagnosis Admission Date Nov 18, 2020 at 03:55 Medical Diagnosis: UTI/generalized weakness Onset Date: Nov 18, 2020 Therapy Diagnosis Therapy Diagnosis: Weakness, Decreased ADL skills Height/Weight Height (Feet): 5 Height (Inches): 1.00 Weight (Pounds): 127 Weight (Ounces): 1.0 Precautions Precautions/Isolations: Fall Prevention, Standard Precautions Weight Bear Status Weight Bearing Restriction: Weight Bearing/Tolerated Referral Physician: Zabrina Referral Reason: Activity Tolerance, Self Care, Evaluation/Treatment, Strengthening/ROM Medical History Pertinent Medical History: Atrial Fib, HTN, Neuropathy, Parkinson's, Renal Insufficiency Additional Medical History Peritoneal dialysis shunt, cochlear implant, hysterectomy, kidney transplant, nephrectomy, oophorectomy, Parkinsons Current History Pt. fell at home twice at night. Spouse called EMS. Pt. found to have mild UTI per pt. Social History Home: Single Level Current Living Status: Spouse Entry Into Home: Stairs With Railing Steps Into Home: 2 ADL-Prior Level of Function SCALE: Activities may be completed with or without assistive devices. 2-Nxslxcfwno-iaiaiwc completes the activity by him/herself with no assistance from a helper. 5-Set-up or Clean-up Assistance-helper sets up or cleans up; patient completes activity. [place] assists only prior to or following the activity. 4-Supervision or Touching Assistance-helper provides verbal cues and/or touching/steadying and/or contact guard assistance as patient completes activity. Assistance may be provided throughout the activity or intermittently. 3-Partial/Moderate Assistance-helper does LESS THAN HALF the effort. [place] lifts, holds or supports trunk or limbs, but provides less than half the effort. 2-Substantial/Maximal Assistance-helper does MORE THAN HALF the effort. [place] lifts or holds trunk or limbs and provides more than half the effort. 5-Supzxgiqz-cnebvp does ALL the effort. Patient does none of the effort to comp lete the activity. Or, the assistance of 2 or more helpers is required for the patient to complete the activity. If activity was not attempted, code reason: 7-Patient Refused. 9-Not Applicable-not attempted and the patient did not perform the activity before the current illness, exacerbation or injury. 10-Not Attempted due to Environmental Limitations-(lack of equipment, weather restraints, etc.). 88-Not Attempted due to Medical Conditions or Safety Concerns. ADL PLOF Comments Pt. states that she uses an upright walker. Her spouse assists her in and out of the shower, but she is able to bathe herself. She does not have a shower chair, and has been able to medical review coordinator shower up to this point. Pt. and spouse have meals on wheels. He makes her a protein shake at night. He is in good health but is unable to help her up when she falls per pt. Self Care: Needed Some Help Functional Cognition: Independent DME/Equipment: Tub/Shower DME/Equipment Comments Upright walker Drive Self: No OT Current Status Subjective No pain reported. Appearance Pt. in bed. Alert and oriented. Mental Status/Objective Patient Orientation: Person, Place, Time, Situation Current Glasses/Contacts: Yes Hearing Aids: Yes (cochlear implant) Upper Extremity ROM WFL Upper Extremity Strength WFL ADL-Treatment Eating (QC): 6 (per pt.) On/Off Footwear (QC): 6 (Seated on EOB) Toileting Hygiene (QC): 2 (Pt. states that she has had multiple BMs this a.m. States that nursing has cleansed her, but that she could "probably do on my own ." Pt. is encouraged to attempt doing on her own next time with SBA support from nursing. OT will assist with equipment for toileting independence if needed.) Other Treatments Pt. is able to transfer supine-sit with Mod I. Stood at EOB with walker and CGA. Stood approximately 2 minutes with CGA. Transferred back stand to sit, and then sit-supine with SBA. All needs met. Education OT Patient Education: Correct positioning, Modified ADL techniques, Progress toward Goal/Update tx plan, Purpose of tx/functional activities, Reviewed precautions, Rehab process, Transfer techniques Teaching Recipient: Patient Teaching Methods: Demonstration, Discussion Response to Teaching: Verbalize Understanding, Return Demonstration OT Alf Goals Target Protection Specialist Goals Time Frame: Nov 25, 2020 Eating (QC): 6 Oral Hygiene (QC): 6 Toileting Hygiene (QC): 6 Shower/Bathe Self (QC): 4 Upper Body Dressing (QC): 5 Lower Body Dressing (QC): 4 On/Off Footwear (QC): 6 Additional Goals: 1-Demonstrate ADL Tasks, 2-Verbalize Understanding, 3- ImproveStrength/Jose 1=Demonstrate adherence to instructed precautions during ADL tasks. 2=Patient will verbalize/demonstrate understanding of assistive devices/mo difications for ADL. 3=Patient will improve strength/tolerance for activity to enable patient to perform ADL's. OT Education/Plan Problem List/Assessment Assessment: Decreased Activ Tolerance, Impaired I ADL's, Impaired Self-Care Skills Discharge Recommendations Plan/Recommendations: Continue POC Therapy Discharge Recommendati: Post Acute OT Treatment Plan/Plan of Care Treatment,Training & Education: Yes Patient would benefit from OT for education, treatment and training to promote independence in ADL's, mobility, safety and/or upper extremity function for ADL's. Plan of Care: ADL Retraining, Functional Mobility, UE Funct Exercise/Act Treatment Duration: Nov 25, 2020 Frequency: 5 times per week Estimated Hrs Per Day: .25 hour per day Agreement: Yes Rehab Potential: Fair Time/GCodes Start Time: 13:32 Stop Time: 13:45 Total Time Billed (hr/min): 13 Billed Treatment Time 1, AMI LYNNE OT Nov 18, 2020 15:41
[2020-11-18] MEDS: DICYCLOMINE 20 MG TABLET PO SCH ×2 (17:59→20:50)
[2020-11-18 20:38] VITALS: BP 124/67
[2020-11-18] MEDS: ASPIRIN E.C. 81 MG (ECOTRIN) TAB PO SCH (20:41)
[2020-11-18] MEDS: GABAPENTIN 600 MG (NEURONTIN) TAB PO SCH (20:42)
[2020-11-18] MEDS: DORZOLAMIDE 2% 10 ML BTL (TRUSOPT) OD SCH (20:42)
[2020-11-18] MEDS: MYCOPHENOLIC 360 MG PO SCH (20:43)
[2020-11-18] MEDS: ALOSETRON PO SCH (20:51)
[2020-11-18] MEDS: TACROLIMUS 1 MG (PROGRAF) CAP NON-FORMULARY PO SCH (20:53)
[2020-11-18] MEDS ORDERED: NON-FORMULARY MEDICATION 1 EA EA (Mirtazapine 7.5 MG) PO SCH (21:00)
[2020-11-18] MEDS ORDERED: NON-FORMULARY MEDICATION 1 EA EA (Cyclosporine (Restasis) 1 EACH) OD SCH (21:00)
[2020-11-18] MEDS ORDERED: MIRTAZAPINE 7.5 MG PO SCH (21:00)
[2020-11-18] MEDS ORDERED: BRINZOLAMIDE OD SCH (21:00)
[2020-11-18] MEDS ORDERED: QUEtiapine 25 MG (SEROquel) TAB IMMEDIATE RELEASE PO SCH (21:00)
[2020-11-18] MEDS ORDERED: NON-FORMULARY MEDICATION 1 EA EA (Cranberry Fruit (Cranberry) 450 MG) PO SCH (21:00)
[2020-11-18] MEDS ORDERED: LORazepam INJ 2 MG/ML (ATIVAN) VIAL IVP PRN (23:00)
[2020-11-18 23:54] VITALS: BP 150/66
[2020-11-19 03:38] VITALS: BP 116/58
[2020-11-19] MEDS ORDERED: cefTRIAXone 1,000 MG/SWFI 10 ML IV PUSH IV SCH ×2 (04:00)
[2020-11-19 05:53] LABS: BASOPHILS % (AUTO) 1 % (0-10); EOSINOPHILS # (AUTO) 0.1 10^3/uL (0.0-0.3); EOSINOPHILS % (AUTO) 1 % (0-10); HEMATOCRIT 36 % (35-52); HEMOGLOBIN 12.4 g/dL (11.5-16.0); LYMPHOCYTES # (AUTO) 1.4 10^3/uL (1.0-4.0); LYMPHOCYTES % (AUTO) 19 % (12-44); MEAN CORPUSCULAR HEMOGLOBIN 31 pg (25-34); MEAN CORPUSCULAR HGB CONC 34 g/dL (32-36); MEAN CORPUSCULAR VOLUME 89 fL (80-99); MEAN PLATELET VOLUME 10.6 fL (9.0-12.2); MONOCYTES # (AUTO) 0.7 10^3/uL (0.0-1.0); MONOCYTES % (AUTO) 9 % (0-12); NEUTROPHILS # (AUTO) 5.4 10^3/uL (1.8-7.8); NEUTROPHILS % (AUTO) 71 % (42-75); PLATELET COUNT 171 10^3/uL (130-400); WHITE BLOOD COUNT 7.6 10^3/uL (4.3-11.0)
[2020-11-19 06:17] LABS: ALBUMIN 3.6 GM/DL (3.2-4.5); CHLORIDE 109 MMOL/L (98-107); POTASSIUM 3.4 MMOL/L (3.6-5.0); SODIUM 141 MMOL/L (135-145)
[2020-11-19 06:18] LABS: CALCIUM 8.5 MG/DL (8.5-10.1)
[2020-11-19 06:19] LABS: GLUCOSE 88 MG/DL (70-105); TOTAL PROTEIN 6.1 GM/DL (6.4-8.2)
[2020-11-19 06:20] LABS: CARBON DIOXIDE 19 MMOL/L (21-32)
[2020-11-19 06:23] LABS: ALKALINE PHOSPHATASE 53 U/L (40-136); CREATININE SERUM 0.72 MG/DL (0.60-1.30); GFR ESTIMATED > 60
[2020-11-19 06:24] LABS: BUN/CREATININE RATIO 13
[2020-11-19 06:26] LABS: ALANINE AMINOTRANSFERASE 7 U/L (0-55)
--- NOTE | 2020-11-19 06:35 | Progress Note - Hospitalist ---
Subjective HPI/CC On Admission Date Seen by Provider: Nov 19, 2020 Chief complaint: UTI with weakness History of present illness: This is a 70-year-old white female known to me from multiple hospital stays with history of recurrent UTI who presents once again to the ER with altered mental status and weakness and findings consistent with UTI. She has been in and out of inpatient rehab and [facility] and home care for the last few years. Her takes care of most of her needs. I have restarted all of her home medications. She is eating and drinking well so I will stop the IV fluid. Rocephin initiated and awaiting urine culture. Objective Exam Vital Signs Vital Signs Date Time Temp Pulse Resp B/P (MAP) Pulse Ox O2 Delivery O2 Flow Rate FiO2 11/19/20 12:00 36.5 75 18 119/64 (82) 99 Room Air Capillary Refill : Less Than 3 Seconds Results/Procedures Lab Laboratory Tests 11/19/20 05:34 Patient resulted labs reviewed. Diagnosis/Problems Diagnosis/Problems (1) UTI (urinary tract infection) Status: Acute (2) Hx of Clostridium difficile infection Status: Acute (3) Anxiety Status: Chronic (4) Multiple falls Status: Chronic (5) Parkinsons disease Status: Chronic (6) Generalized weakness Status: Chronic (7) GERD (gastroesophageal reflux disease) Status: Chronic (8) Irritable bowel syndrome Status: Chronic (9) Hearing impaired Status: Chronic (10) Diabetes mellitus type 2 with complications Status: Chronic (11) Kidney transplant recipient Status: Acute JOSEPH DRIVER DO Nov 19, 2020 06:35
[2020-11-19] MEDS ORDERED: MULTIVIT W/MINERALS TAB (THERAGRAN M) PO SCH (07:00)
[2020-11-19 08:00] VITALS: BP 120/57
[2020-11-19] MEDS ORDERED: ASCORBIC ACID (VIT C) 500 MG TABLET PO SCH (08:00)
[2020-11-19] MEDS: VANCOMYCIN 125 MG CAPSULE PO SCH (08:39)
[2020-11-19] MEDS: ASPIRIN E.C. 81 MG (ECOTRIN) TAB PO SCH (08:39)
[2020-11-19] MEDS: DORZOLAMIDE 2% 10 ML BTL (TRUSOPT) OD SCH (08:40)
[2020-11-19] MEDS: GABAPENTIN 600 MG (NEURONTIN) TAB PO SCH ×2 (08:40→12:11)
[2020-11-19] MEDS: DICYCLOMINE 20 MG TABLET PO SCH ×2 (08:41→12:11)
[2020-11-19] MEDS: TACROLIMUS 1 MG (PROGRAF) CAP NON-FORMULARY PO SCH (08:42)
[2020-11-19] MEDS: ALOSETRON PO SCH (08:43)
[2020-11-19] MEDS: MYCOPHENOLIC 360 MG PO SCH (08:43)
[2020-11-19] MEDS ORDERED: buPROPion 75 MG (WELLBUTRIN) TAB PO SCH (09:00)
[2020-11-19] MEDS ORDERED: NON-FORMULARY MEDICATION 1 EA EA (L.acidoph & Paracasei,B.lactis (Probiotic) 1 CAP) PO SCH (09:00)
[2020-11-19] MEDS ORDERED: NON-FORMULARY MEDICATION 1 EA EA (Multivitamin 1 EACH) PO SCH (09:00)
[2020-11-19] MEDS ORDERED: LACTOBACILLUS ACIDOPHILUS (PROBIOTIC) CAPSULE PO SCH (09:00)
[2020-11-19] MEDS ORDERED: amLODIPine 2.5MG (NORVASC) TAB PO SCH (09:00)
[2020-11-19] MEDS ORDERED: VITAMIN B COMP W C PO SCH (09:00)
[2020-11-19] MEDS ORDERED: LIVALO 2 MG PO SCH (09:00)
[2020-11-19] MEDS ORDERED: [UNRECOGNIZED DRUG - OTHER] PO SCH (09:00)
[2020-11-19] MEDS ORDERED: FOLIC ACID PO SCH (09:00)
[2020-11-19] MEDS ORDERED: buPROPion 100 MG (WELLBUTRIN) TAB PO SCH (09:00)
[2020-11-19] MEDS ORDERED: FOLIC ACID 1 MG TAB PO SCH (09:00)
[2020-11-19] MEDS ORDERED: NON-FORMULARY MEDICATION 1 EA EA (Ascorbate Calcium (Vitamin C) 500 MG) PO SCH (09:00)
[2020-11-19] MEDS ORDERED: FAMOTIDINE 20 MG (PEPCID) TABLET PO SCH (09:00)
--- NOTE | 2020-11-19 10:20 | Physical Therapy Daily Note ---
PT Daily Note-Current Subjective Patient is very agreeable to participate with therapy. Patient voices she hopes to go home today. Mental Status Patient Orientation: Normal For Age Transfers SCALE: Activities may be completed with or without assistive devices. 8-Pbiwzsqwmr-evqctsk completes the activity by him/herself with no assistance from a helper. 5-Set-up or Clean-up Assistance-helper sets up or cleans up; patient completes activity. [place] assists only prior to or following the activity. 4-Supervision or Touching Assistance-helper provides verbal cues and/or touching/steadying and/or contact guard assistance as patient completes activity. Assistance may be provided throughout the activity or intermittently. 3-Partial/Moderate Assistance-helper does LESS THAN HALF the effort. [place] lifts, holds or supports trunk or limbs, but provides less than half the effort. 2-Substantial/Maximal Assistance-helper does MORE THAN HALF the effort. [place] lifts or holds trunk or limbs and provides more than half the effort. 5-Ndrnjrmiw-mhloxs does ALL the effort. Patient does none of the effort to complete the activity. Or, the assistance of 2 or more helpers is required for the patient to complete the activity. If activity was not attempted, code reason: 7-Patient Refused. 9-Not Applicable-not attempted and the patient did not perform the activity before the current illness, exacerbation or injury. 10-Not Attempted due to Environmental Limitations-(lack of equipment, weather restraints, etc.). 88-Not Attempted due to Medical Conditions or Safety Concerns. Sit to Lying (QC): 6 Lying to Sitting/Side of Bed(Q: 6 Sit to Stand (QC): 5 Gait Training Does the Patient Walk?: Yes Distance: 400' Walk 10 feet (QC): 4 (SBA) Walk 50 ft with 2 Turns(QC): 4 (SBA) Walk 150 ft (QC): 4 (SBA) Gait Assistive Device: FWW slightly unsteady gait sequence with self correct. (per patient, it's the FWW causing her to have unstable gait) Assessment Patient tolerated treatment and requested return to bed. Patient has an upright walker at home. PT Short Term Goals Short Term Goals Time Frame: Nov 26, 2020 Roll Left & Right: 6 Sit to lyin Lying to sitting on side of be: 6 Sit to stand: 5 Chair/adx-hz-knpqw transfer: 5 Toilet transfer: 5 Walk 10 feet: 5 Walk 50 feet with two turns: 5 Walk 150 feet: 5 PT Plan Treatment/Plan Treatment Plan: Continue Plan of Care Treatment Plan: Education, Functional Activity Jose, Functional Strength, Gait, Safety, Therapeutic Exercise, Transfers Treatment Duration: Nov 26, 2020 Frequency: 6 times per week Estimated Hrs Per Day: .25 hour per day Patient and/or Family Agrees t: Yes Time/GCodes Time In: 851 Time Out: 903 Total Billed Treatment Time: 12 Total Billed Treatment 1 visit FA 12 min SARIAH VALLADARES PT Nov 19, 2020 10:20
--- NOTE | 2020-11-19 10:55 | Occupational Ther Daily Note ---
OT Current Status-Daily Note Subjective Pt in bed, alert, agrees to tx. Denies pain. present in session. ADL-Treatment Therapy Code Descriptions/Definitions Functional [place] Measure: 0=Not Assessed/NA 4=Minimal Assistance 1=Total Assistance 5=Supervision or Setup 2=Maximal Assistance 6=Modified [place] 3=Moderate Assistance 7=Complete IndependenceSCALE: Activities may be completed with or without assistive devices. 0-Xfxsgiafnr-dqtoqrs completes the activity by him/herself with no assistance from a helper. 5-Set-up or Clean-up Assistance-helper sets up or cleans up; patient completes activity. [place] assists only prior to or following the activity. 4-Supervision or Touching Assistance-helper provides verbal cues and/or touching/steadying and/or contact guard assistance as patient completes activity. Assistance may be provided throughout the activity or intermittently. 3-Partial/Moderate Assistance-helper does LESS THAN HALF the effort. [place] lifts, holds or supports trunk or limbs, but provides less than half the effort. 2-Substantial/Maximal Assistance-helper does MORE THAN HALF the effort. [place] lifts or holds trunk or limbs and provides more than half the effort. 6-Tsyivyvuy-iupjcj does ALL the effort. Patient does none of the effort to complete the activity. Or, the assistance of 2 or more helpers is required for the patient to complete the activity. If activity was not attempted, code reason: 7-Patient Refused. 9-Not Applicable-not attempted and the patient did not perform the activity before the current illness, exacerbation or injury. 10-Not Attempted due to Environmental Limitations-(lack of equipment, weather restraints, etc.). 88-Not Attempted due to Medical Conditions or Safety Concerns. Eating (QC): 6 Lower Body Dressing (QC): 4 Toileting Hygiene (QC): 6 Toilet Transfer (QC): 4 Other Treatment Pt bed mob with min A to supine to sit. Sit to stand CGA, ambulates with walker to bathroom. Pt sits with control. Pt urinates and has soft BM. Cleanses self/ dresses LB with CGA in stance. Pt completes hand hygiene CGA. Denies sitting in chair. Ambulates to bed with all needs met, call ligiht in reach, pt's present. Education OT Patient Education: Correct positioning, Progress toward Goal/Update tx plan, Purpose of tx/functional activities, Safety issues, Transfer techniques Teaching Recipient: Patient Teaching Methods: Demonstration, Discussion Response to Teaching: Verbalize Understanding, Return Demonstration OT Under Presser Goals Under Presser Goals Time Frame: Nov 25, 2020 Eating (QC): 6 Oral Hygiene (QC): 6 Toileting Hygiene (QC): 6 Shower/Bathe Self (QC): 4 Upper Body Dressing (QC): 5 Lower Body Dressing (QC): 4 On/Off Footwear (QC): 6 Additional Goals: 1-Demonstrate ADL Tasks, 2-Verbalize Understanding, 3- ImproveStrength/Jose 1=Demonstrate adherence to instructed precautions during ADL tasks. 2=Patient will verbalize/demonstrate understanding of assistive devices/modifications for ADL. 3=Patient will improve strength/tolerance for activity to enable patient to perform ADL's. OT Education/Plan Problem List/Assessment Assessment: Decreased Activ Tolerance, Decreased UE Strength, Dependent Transfers, Impaired Bed Mobility, Impaired Funct Balance, Impaired I ADL's, Impaired Self-Care Skills Discharge Recommendations Plan/Recommendations: Continue POC Therapy Discharge Recommendati: Home & Family, Post Acute OT Treatment Plan/Plan of Care Treatment,Training & Education: Yes Patient would benefit from OT for education, treatment and training to promote independence in ADL's, mobility, safety and/or upper extremity function for ADL's. Plan of Care: ADL Retraining, Functional Mobility, UE Funct Exercise/Act Treatment Duration: Nov 25, 2020 Frequency: 5 times per week Estimated Hrs Per Day: .25 hour per day Agreement: Yes Rehab Potential: Fair Time/GCodes Start Time: 07:58 Stop Time: 08:09 Total Time Billed (hr/min): 11 Billed Treatment Time 1, ADL (11) MINE ROBERTSON OTR Nov 19, 2020 10:55
[2020-11-19 12:00] VITALS: BP 119/64
[2020-11-19] MEDS: ENOXAPARIN 40 MG/0.4 ML (LOVENOX) SYR SC SCH (12:10)
[2020-11-19] MEDS ORDERED: VANC125C5 PO (12:25)
[2020-11-19] MEDS ORDERED: CEFD300C3 PO (12:25)
--- NOTE | 2020-11-19 12:25 | Discharge Summary ---
Discharge Summary Hospital Course Was the Problem List Reviewed?: Yes Problems/Dx: (1) UTI (urinary tract infection) Status: Acute (2) Hx of Clostridium difficile infection Status: Acute (3) Anxiety Status: Chronic (4) Multiple falls Status: Chronic (5) Parkinsons disease Status: Chronic (6) Generalized weakness Status: Chronic (7) GERD (gastroesophageal reflux disease) Status: Chronic (8) Irritable bowel syndrome Status: Chronic (9) Hearing impaired Status: Chronic (10) Diabetes mellitus type 2 with complications Status: Chronic (11) Kidney transplant recipient Status: Acute Hospital Course Date of Admission: Nov 18, 2020 at 03:55 Admission Diagnosis : Family Physician/Provider: Rosas Caban Aprn Date of Discharge: 11/19/20 Discharge Diagnosis: UTI acute on chronic, altered mental status, Parkinson's Hospital Course: Short hospital course after she was admitted for acute on chronic UTI with altered mental status with dehydration. IV fluids were discontinued and PT and OT were consulted and she was back to her baseline functioning. Upon review of previous urine culture she was discharged in improved condition and discharged on Omnicef. Labs and Pending Lab Test: Laboratory Tests 11/19/20 05:34: White Blood Count 7.6, Red Blood Count 4.04, Hemoglobin 12.4, Hematocrit 36, Mean Corpuscular Volume 89, Mean Corpuscular Hemoglobin 31, Mean Corpuscular Hemoglobin Concent 34, Red Cell Distribution Width 13.0, Platelet Count 171, Mean Platelet Volume 10.6, Immature Granulocyte % (Auto) 1, Neutrophils (%) (Auto) 71, Lymphocytes (%) (Auto) 19, Monocytes (%) (Auto) 9, Eosinophils (%) (Auto) 1, Basophils (%) (Auto) 1, Neutrophils # (Auto) 5.4, Lymphocytes # (Auto) 1.4, Monocytes # (Auto) 0.7, Eosinophils # (Auto) 0.1, Basophils # (Auto) 0.0, Immature Granulocyte # (Auto) 0.0, Sodium Level 141, Potassium Level 3.4L, Chloride Level 109H, Carbon Dioxide Level 19L, Anion Gap 13, Blood Urea Nitrogen 9, Creatinine 0.72, Estimat Glomerular Filtration Rate > 60, BUN/Creatinine Ratio 13, Glucose Level 88, Calcium Level 8.5, Corrected Calcium 8.8, Total Bi lirubin 1.0, Aspartate Amino Transf (AST/SGOT) 13, Alanine Aminotransferase (ALT/SGPT) 7, Alkaline Phosphatase 53, Total Protein 6.1L, Albumin 3.6 Microbiology 11/18/20 Urine Culture - Preliminary, Resulted Gram Negative Nate Home Meds Active Cefdinir 300 Mg Capsule 300 Mg PO BID Vancomycin HCl 125 Mg Capsule 125 Mg PO BID Reported Multivitamin 1 Each Tablet 1 Each PO DAILY Bupropion HCl 75 Mg Tablet 75 Mg PO DAILY Quetiapine Fumarate 25 Mg Tablet 25 Mg PO 2100 Livalo (Pitavastatin Calcium) 2 Mg Tablet 2 Mg PO DAILY Cranberry (Cranberry Fruit) 450 Mg Tablet 450 Mg PO BID Nephro-Rodrick Tablet (Folic Acid/Vitamin B Comp W-C) 0.8 Mg Tablet 0.8 Mg PO DAILY Amlodipine Besylate 2.5 Mg Tablet 2.5 Mg PO DAILY Mirtazapine 7.5 Mg Tablet 7.5 Mg PO HS Lotronex (Alosetron HCl) 0.5 Mg Tab 0.5 Mg PO BID Restasis (Cyclosporine) 1 Each Droperette 1 Each OD BID Dicyclomine HCl 20 Mg Tablet 10 Mg PO QID TAKES 1/2 OF A 20MG TAB Gabapentin 600 Mg Tablet 600 Mg PO TID Mycophenolic Acid (Mycophenolate Sodium) 360 Mg Tablet.dr 360 Mg PO BID Flonase Allergy Relief (Fluticasone Propionate) 9.9 Ml Valmy.susp 2 Valmy NS DAILY PRN Clonazepam 0.5 Mg Tablet 0.25 Mg PO 1200,2100 PRN TAKES 1/2 OF A 0.5MG TAB Acid Agronomy Professor (FAMOTIDINE) (Famotidine) 20 Mg Tablet 20 Mg PO DAILY Azopt (Brinzolamide) 10 Ml Btl 1 Drop OD BID Vitamin C (Ascorbate Calcium) 500 Mg Tablet 500 Mg PO DAILY Adult Low Dose Aspirin EC (Aspirin) 81 Mg Tablet.dr 81 Mg PO DAILY Prograf (Tacrolimus) 1 Mg Capsule 1 Mg PO BID Probiotic (L.acidoph & Paracasei,B.lactis) 1 Each Capsule 1 Cap PO DAILY Imodium Multi-Symptom Rel Cplt (Loperamide HCl/Simethicone) 1 Each Tablet 1 Tab PO DAILY PRN Assessment/Pt Instructions [facility] 1 week Discharge Planning: <30 minutes discharge planning Discharge Instructions Discharge Diet: No Restrictions Discharge Physical Examination Vital Signs Vital Signs Date Time Temp Pulse Resp B/P (MAP) Pulse Ox O2 Delivery O2 Flow Rate FiO2 11/19/20 12:00 36.5 75 18 119/64 (82) 99 Room Air General Appearance: No Apparent Distress, WD/WN, Chronically ill Respiratory: Lungs Clear Cardiovascular: Regular Rate, Rhythm Neurologic/Psychiatric: Alert, Oriented x3 Allergies: Coded Allergies: codeine (Unverified Allergy, Unknown, 02/12/17) morphine (Verified Allergy, Unknown, NAUSEA, 02/12/17) Discharge Summary Date of Admission Nov 18, 2020 at 03:55 Date of Discharge Discharge Date: Nov 19, 2020 Admission Diagnosis Assessment: UTI recurrent in type Parkinson's disease Falls Renal transplant status h/o C diff colitis Inability to ambulate Plan: Maintain vancomycin twice a day to prevent C. difficile PT and OT Hep-Lock IV fluid Antibiotics Discharge Diagnosis (1) UTI (urinary tract infection) Status: Acute (2) Hx of Clostridium difficile infection Status: Acute (3) Anxiety Status: Chronic (4) Multiple falls Status: Chronic (5) Parkinsons disease Status: Chronic (6) Generalized weakness Status: Chronic (7) GERD (gastroesophageal reflux disease) Status: Chronic (8) Irritable bowel syndrome Status: Chronic (9) Hearing impaired Status: Chronic (10) Diabetes mellitus type 2 with complications Status: Chronic (11) Kidney transplant recipient Status: Acute JOSEPH DRIVER DO Nov 19, 2020 12:25
[2020-11-19 13:31] VITALS: BP 119/64
== END 2020-11-19 13:31 | disposition home or self-care (01) ==
LOC: EDUNIT# 02:18 → ER 02:19 → UNDOADMIN 03:55 → 4TH 03:55 → UNDODISIN 11-19 13:20
PROVIDERS: ADMIT Internal Medicine; ATTEND Internal Medicine
DX: N39.0 Urinary tract infection, site not specified (principal); Z94.0 Kidney transplant status; Q61.3 Polycystic kidney, unspecified; E86.0 Dehydration; S09.90XA Unspecified injury of head, initial encounter; Z91.81 History of falling; I48.91 Unspecified atrial fibrillation; E78.00 Pure hypercholesterolemia, unspecified; I10 Essential (primary) hypertension; G20 Parkinson's disease; Z90.5 Acquired absence of kidney; Z85.528 Personal history of other malignant neoplasm of kidney; F41.9 Anxiety disorder, unspecified; F32.9 Major depressive disorder, single episode, unspecified; H91.90 Unspecified hearing loss, unspecified ear; K21.9 Gastro-esophageal reflux disease without esophagitis; K58.9 Irritable bowel syndrome, unspecified; E11.9 Type 2 diabetes mellitus without complications; Z95.2 Presence of prosthetic heart valve; Z96.21 Cochlear implant status; Z79.82 Long term (current) use of aspirin; Z90.01 Acquired absence of eye; Z88.6 Allergy status to analgesic agent; W01.190A Fall on same level from slipping, tripping and stumbling with subsequent striking against furniture, initial encounter
CPT/HCPCS: 51701; 70450; 72125; 80053 ×2; 81000; 83735; 85025 ×2; 87077; 87088; 87186; 93005; 93041; 96374; 97162; 97166; 97530; 97535; 99284; G0378; 36415

== ENCOUNTER 2020-12-02 21:38 | Emergency (ER) | payer MEDICARE, OTHER ==
[~2020-12-02] VITALS: Ht 155 cm; Wt 54.8 kg
[~2020-12-02 21:38] MED LIST changes: +BUPR-168 PO; +MULT-1136 PO; +QUET25TA34 PO
[2020-12-02 22:38] LABS: BASOPHILS % (AUTO) 0 % (0-10); EOSINOPHILS % (AUTO) 0 % (0-10); HEMATOCRIT 37 % (35-52); HEMOGLOBIN 12.5 g/dL (11.5-16.0); LYMPHOCYTES % (AUTO) 6 % (12-44); MEAN CORPUSCULAR HEMOGLOBIN 31 pg (25-34); MEAN CORPUSCULAR HGB CONC 34 g/dL (32-36); MEAN CORPUSCULAR VOLUME 92 fL (80-99); MEAN PLATELET VOLUME 10.9 fL (9.0-12.2); MONOCYTES # (AUTO) 0.8 10^3/uL (0.0-1.0); MONOCYTES % (AUTO) 5 % (0-12); NEUTROPHILS # (AUTO) 14.1 10^3/uL (1.8-7.8); NEUTROPHILS % (AUTO) 88 % (42-75); PLATELET COUNT 162 10^3/uL (130-400)
[2020-12-02 22:47] LABS: BILIRUBIN,URINE NEGATIVE (NEGATIVE); CLARITY,URINE CLEAR; COLOR,URINE YELLOW; GLUCOSE, URINE (UA) NEGATIVE (NEGATIVE); KETONES,URINE 1+ (NEGATIVE); LEUKOCYTE ESTERASE ,URINE NEGATIVE (NEGATIVE); NITRITE,URINE NEGATIVE (NEGATIVE); PH,URINE 7.5 (5-9); PROTEIN,URINE NEGATIVE (NEGATIVE)
[2020-12-02 22:49] LABS: BACTERIA,URINE NEGATIVE /HPF; SQUAMOUS EPITHELIAL CELL,UR RARE /HPF
[2020-12-02 22:57] LABS: BAND NEUTROPHILS 7 %; BASOPHILS % (MANUAL) 0 %; EOSINOPHILS % (MANUAL) 0 %; LYMPHOCYTES % (MANUAL) 4 %; MONOCYTES % (MANUAL) 3 %; NEUTROPHILS % (MANUAL) 86 %; TOXIC GRANULATION/VACUOLAZATIO 1+
[2020-12-02 23:01] LABS: ALANINE AMINOTRANSFERASE 9 U/L (0-55); ALBUMIN 4.2 GM/DL (3.2-4.5); ALKALINE PHOSPHATASE 58 U/L (40-136); AMYLASE 34 U/L (25-125); BILIRUBIN,TOTAL 1.8 MG/DL (0.1-1.0); BUN/CREATININE RATIO 10; CALCIUM 9.2 MG/DL (8.5-10.1); CARBON DIOXIDE 20 MMOL/L (21-32); CHLORIDE 104 MMOL/L (98-107); CREATININE SERUM 0.78 MG/DL (0.60-1.30); GFR ESTIMATED > 60; GLUCOSE 111 MG/DL (70-105); LIPASE < 4 U/L (8-78); MAGNESIUM 1.5 MG/DL (1.6-2.4); POTASSIUM 3.8 MMOL/L (3.6-5.0); SODIUM 136 MMOL/L (135-145); TOTAL PROTEIN 7.2 GM/DL (6.4-8.2)
[2020-12-02 23:20] LABS: TSH (THYROID ANALYZER) 0.61 UIU/ML (0.35-4.94)
[2020-12-02] MEDS ORDERED: AZITHROMYCIN INJECTION 500 MG in NS (IVPB) 250 ML IV ONE (23:45)
[2020-12-02] MEDS ORDERED: cefTRIAXone 1,000 MG in WATER (STERILE) FOR INJECTION 10 ML IV ONE (23:45)
[2020-12-03] MEDS ORDERED: MAGNESIUM 1 GM/100 ML IVPB 100 ML IV ONE
[2020-12-03] MEDS ORDERED: ONDANSETRON 4 MG/2 ML (SDV) Z0FRAN IVP ONE (00:45)
--- NOTE | 2020-12-03 01:06 | ED General ---
General Chief Complaint: Trauma-Non Activation Stated Complaint: FALL Nursing Triage Note: BROUGHT IN BY FOR C/O FALL LAST NIGHT ET. TONIGHT. GENERALIZED WEAKNESS/MALAISE. REPORTS HX UTI WITH THESE SYMPTOMS. SEEN AT [facility] TODAY FOR SAME. DENIES INJURY. Nursing Sepsis Screen: No Definite Risk Source of Information: Patient (LIMITED HISTORIAN), Old Records, Spouse ( DOES ALL TALKING FOR PT) History of Present Illness Date Seen by Provider: Dec 02, 2020 Time Seen by Provider: 22:15 Initial Comments PT ARRIVES VIA POV FROM HOME WITH C/O GENERALIZED WEAKNESS AND FALLING STATES SHE FELL LAST PM AND AGAIN TONIGHT AROUND 2100 PT WITH CHRONIC GENERALIZED WEAKNESS AND POOR AMBULATION AND PARKINSON'S DISEASE, WITH FREQUENT FALLS STATES SHE WALKS WITH HER WALKER AND SHE JUST GETS TOO WEAK TO WALK AND "GOES DOWN" --STATES "HER LEGS WON'T HOLD HER UP" NO APPARENT INJURIES FROM THE INCIDENTS, AND DID NOT HIT HEAD OR HAVE LOSS OF CONSCIOUSNESS NO CHEST PAIN NO SHORTNESS OF BREATH NO DIZZINESS NO PARESTHESIAS OR MOTOR DEFICITS C/O MILD NAUSEA OFF AND ON, NO VOMITING C/O DECREASED APPETITE--HAD 3 BOTTLES OF WATER AND A FEW BITES OF FOOD TODAY NO PROBLEMS URINATING NO DIARRHEA NO BLACK/BLOODY/TARRY STOOLS NO COUGH OR URI SYMPTOMS NO FEVER/SWEATS/CHILLS NO ABDOMINAL PAIN NO LOSS OF TASTE/SMELL NO HEADACHE NO BODY ACHES PT HAS RECEIVED COVID-19 VACCINATION PT WENT TO [facility] TODAY FOR THIS PROBLEM, AND UA WAS DONE AND WAS REPORTEDLY CLEAR, NO ADDITIONAL TESTS DONE. THIS IS A FREQUENT ISSUE WITH PT, AND HAS BEEN HERE AND ADMITTED 8 TIMES SINCE MARCH 2020, FOR THIS SAME PROBLEM REPORTS "SHE ALWAYS GETS THIS WAY WHEN SHE HAS A UTI" LAST ADMIT WAS -11/19/20 FOR GENERALIZED WEAKNESS, FALLS AND UTI PT HAS HAD A RENAL TRANSPLANT PT ALSO HAD C. DIFFICILE EARLIER THIS YEAR, AND IS VERY ADAMANT THAT SHE BE TREATED WITH VANCOMYCIN IN ADDITION TO ANY ANTIBIOTICS SHE RECEIVES FOR OTHER INFECTIONS STATES THAT HE CANNOT LIFT HER HIMSELF AND CANNOT TAKE CARE OF HER WHEN SHE GETS LIKE THIS. Location Injury Occurred: HOME PCP: [facility], SEES FURNACE CLERK'S THERE Allergies and Home Medications Allergies Coded Allergies: codeine (Unverified Allergy, Unknown, 02/12/17) morphine (Verified Allergy, Unknown, NAUSEA, 02/12/17) Home Medications Alosetron HCl 0.5 Mg Tab, 0.5 MG PO BID, (Reported) Amlodipine Besylate 2.5 Mg Tablet, 2.5 MG PO DAILY, (Reported) Ascorbate Calcium 500 Mg Tablet, 500 MG PO DAILY, (Reported) Aspirin 81 Mg Tablet.dr, 81 MG PO DAILY, (Reported) Brinzolamide 10 Ml Btl, 1 DROP OD BID, (Reported) Bupropion HCl 75 Mg Tablet, 75 MG PO DAILY, (Reported) Cefdinir 300 Mg Capsule, 300 MG PO BID Prescribed by: JOSEPH DRIVER on 11/19/20 1225 Clonazepam 0.5 Mg Tablet, 0.25 MG PO 1200,2100 PRN for ANXIETY, (Reported) TAKES 1/2 OF A 0.5MG TAB Cranberry Fruit 450 Mg Tablet, 450 MG PO BID, (Reported) Cyclosporine 1 Each Droperette, 1 EACH OD BID, (Reported) Dicyclomine HCl 20 Mg Tablet, 10 MG PO QID, (Reported) TAKES 1/2 OF A 20MG TAB Famotidine 20 Mg Tablet, 20 MG PO DAILY, (Reported) Fluticasone Propionate 9.9 Ml [place].susp, 2 SPRAY NS DAILY PRN for CONGESTION, (Reported) Folic Acid/Vitamin B Comp W-C 0.8 Mg Tablet, 0.8 MG PO DAILY, (Reported) Gabapentin 600 Mg Tablet, 600 MG PO TID, (Reported) L.acidoph & Paracasei,B.lactis 1 Each Capsule, 1 CAP PO DAILY, (Reported) Loperamide HCl/Simethicone 1 Each Tablet, 1 TAB PO DAILY PRN for DIARRHEA, (Reported) Mirtazapine 7.5 Mg Tablet, 7.5 MG PO HS, (Reported) Multivitamin 1 Each Tablet, 1 EACH PO DAILY, (Reported) Mycophenolate Sodium 360 Mg Tablet.dr, 360 MG PO BID, (Reported) Pitavastatin Calcium 2 Mg Tablet, 2 MG PO DAILY, (Reported) Quetiapine Fumarate 25 Mg Tablet, 25 MG PO 2100, (Reported) Tacrolimus 1 Mg Capsule, 1 MG PO BID, (Reported) Vancomycin HCl 125 Mg Capsule, 125 MG PO BID Prescribed by: JOSEPH DRIVER on 11/19/20 1225 Patient Home Medication List Home Medication List Reviewed: Yes Review of Systems Review of Systems Constitutional: see HPI; No chills, No diaphoresis, No dizziness, No fever; malaise, weakness EENTM: no symptoms reported Respiratory: no symptoms reported; No cough, No short of breath Cardiovascular: no symptoms reported; No chest pain, No edema, No palpitations, No syncope, No vascular heart diseas Gastrointestinal: see HPI; No abdominal pain, No diarrhea; loss of appetite, nausea; No vomiting Genitourinary: no symptoms reported; No decreased output, No dysuria, No frequency Musculoskeletal: no symptoms reported; No back pain, No neck pain Skin: no symptoms reported Psychiatric/Neurological: See HPI; Denies Headache, Denies Numbness, Denies Paresthesia, Denies Seizure, Denies Tingling; Weakness (GENERALIZED) Hematologic/Lymphatic: No Symptoms Reported Immunological/Allergic: no symptoms reported Past Wsqvirk-Sxvoxu-Rkhdyv Hx Past Med/Social Hx: Reviewed and Corrections made Patient Social History Alcohol Use: Denies Use Smoking Status: Never a Smoker 2nd Hand Smoke Exposure: No Recent Infectious Disease Expo: No Recent Hopitalizations: No (11/18/20-11/19/20) Immunizations Up To Date Tetanus Booster (TDap): Unknown PED Vaccines UTD: No Date of Pneumonia Vaccine: Jul 30, 2020 Date of Influenza Vaccine: May 05, 2021 Seasonal Allergies Seasonal Allergies: Yes Past Medical History Surgeries: Yes (COCHLEAR IMPLANT, CARDIAC ABLATION, AORTIC VALVE, KIDNEY TRANSPLANT) Appendectomy, Cardiac, Dialysis, Ear Surgery, Eye Surgery, Hysterectomy, Kidney Transplant, Nephrectomy, Oophorectomy, Orthopedic, Renal, Tonsillectomy, Valve Replacement Respiratory: Yes Pneumonia Currently Using CPAP: No Currently Using BIPAP: No Cardiac: Yes ( CHF; AORTIC PIG VALVE FOR AORTIC STENOSIS ; PAROXYSMAL ATRIAL FIB. 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, Menopausal Sexually Transmitted Disease: No HIV/AIDS: No Genitourinary: Yes (BILATERAL NEPHRECTOMY AND RENAL TRANSPLANT, dialysis prior to transplant) Kidney Infection, Renal Failure, Dialysis, UTI-Chronic, Polycystic Kidney Disease Gastrointestinal: Yes (H.PYLORI; GASTROPARESIS) Gastroesophageal Reflux, Chronic Diarrhea, Polyps, C-Diff, Irritable Bowel Musculoskeletal: Yes (FREQUENT FALLS/USES WALKER;CHRONIC GENERALIZED WEAKNESS) Degenerate Disk Disease, Arthritis, Chronic Back Pain Endocrine: Yes Parathyroid Disease, Diabetes, Non-Insulin dep HEENT: Yes (LEFT EYE REMOVED DUE TO UVEITIS; RIGHT COCHLEAR IMPLANT) Cataract, Glaucoma Hearing Impairment: Hard of Hearing, Hearing Aide Left Cancer: Yes Kidney Did You Recieve Any Treatments: Yes What Type of Treatment Did You: Surgical Intervention Psychosocial: Yes Anxiety, Depression Integumentary: No Blood Disorders: No Adverse Reaction/Blood Tranf: No (HAS HAD BLOOD WITH NO REACTION) Family Medical History Alzheimer's disease 19 MOTHER (later in life) Dementia 19 MOTHER No Pertinent Family Hx PAST SURGICAL HISTORY: -LEFT EYE REMOVED/ARTIFICIAL EYE DUE TO UVEITIS -RIGHT COCHLEAR IMPLANT -DIALYSIS SHUNT LEFT ARM--DIALYSIS X 4 YEARS -MULTIPLE REVISIONS OF DIALYSIS AV GRAFT -PERITONEAL DIALYSIS SHUNT -BILATERAL NEPHRECTOMY WITH RENAL TRANSPLANT-IN RLQ OF ABDOMEN--6 YEARS AGO--FOR POLYCYSTIC KIDNEY DISEASE -CARDIAC ABLATION -AORTIC VALVE REPLACEMENT WITH PIG VALVE FOR AORTIC STENOSIS -TONSILLECTOMY -APPENDECTOMY -HYSTERECTOMY/ LATER BSO -CARDIAC CATH 2010--NON-OBSTRUCTIVE DISEASE, NO INTERVENTION -BILATERAL PULMONARY VEIN ABLATION WITH STAPLE AMPTUATION OF LEFT ATRIAL APPENDAGE AT SAME TIME AORTIC VALVE REPLACEMENT -EGD/COLONOSCOPIES/POLYPECTOMIES -EXCISION OF LEFT HIP HEMATOMA 01/2017 [facility] [place]. Physical Exam Vital Signs Vital Signs - First Documented 12/02/20 21:58 Temp 37.0 Pulse 89 Resp 18 B/P (MAP) 136/62 (86) Pulse Ox 99 O2 Delivery Room Air Capillary Refill : Less Than 3 Seconds Height, Weight, BMI Height: 5'1.00" Weight: 127lbs. 1.0oz. 57.144820mw; 22.00 BMI Method:Stated General Appearance: No Apparent Distress, WD/WN, Other (MILDLY LETHARGIC, GENERALLY WEAK, BUT DOES NOT APPEAR TO BE IN ANY DISCOMFORT OR DISTRESS) HEENT: Other (RIGHT COCHLEAR IMPLANT;LEFT EYE IS ARTIFICIAL; NO EXTERNAL EVIDENCE OF TRAUMA TO HEAD) Neck: Full Range of Motion, Normal Inspection, Non Tender, Supple Respiratory: Chest Non Tender, Normal Breath Sounds, No Accessory Muscle Use, No Respiratory Distress Cardiovascular: Regular Rate, Rhythm, No JVD, No Murmur, Normal Peripheral Pulses Gastrointestinal: Non Tender, Soft Back: Normal Inspection, No CVA Tenderness, No Vertebral Tenderness Extremity: Normal Inspection, Non Tender, No Pedal Edema Neurologic/Psychiatric: Alert, Oriented x3, No Motor/Sensory Deficits Skin: Normal Color, Warm/Dry, Other (OLD BRUISING AND OLDER APPEARING SCABBED WOUNDS TO BILATERAL LOWER LEGS. NO SIGNS OF INFECTION) Focused Exam Lactate Level 12/03/20 00:01: Lactic Acid Level 1.39 Lactic Acid Level Laboratory Tests Test 12/03/20 00:01 Lactic Acid Level 1.39 MMOL/L (0.50-2.00) Progress/Results/Core Measures Suspected Sepsis Recent Fever Within 48 Hours: No Infection Criteria Present: None New/Unexplained Altered Menta: No Sepsis Screen: No Definite Risk SIRS Temperature: Pulse: 89 Respiratory Rate: 18 Laboratory Tests 12/02/20 22:25: White Blood Count 16.0H Blood Pressure 136 /62 Mean: 86 12/03/20 00:01: Lactic Acid Level 1.39 Laboratory Tests 12/02/20 22:25: Creatinine 0.78, Platelet Count 162, Total Bilirubin 1.8H Results/Orders Lab Results Laboratory Tests Test 12/02/20 22:25 12/03/20 00:01 Range/Units White Blood Count 16.0 H 4.3-11.0 10^3/uL Red Blood Count 4.00 3.80-5.11 10^6/uL Hemoglobin 12.5 11.5-16.0 g/dL Hematocrit 37 35-52 % Mean Corpuscular Volume 92 80-99 fL Mean Corpuscular Hemoglobin 31 25-34 pg Mean Corpuscular Hemoglobin Concent 34 32-36 g/dL Red Cell Distribution Width 12.9 10.0-14.5 % Platelet Count 162 130-400 10^3/uL Mean Platelet Volume 10.9 9.0-12.2 fL Immature Granulocyte % (Auto) 1 % Neutrophils (%) (Auto) 88 H 42-75 % Lymphocytes (%) (Auto) 6 L 12-44 % Monocytes (%) (Auto) 5 0-12 % Eosinophils (%) (Auto) 0 0-10 % Basophils (%) (Auto) 0 0-10 % Neutrophils # (Auto) 14.1 H 1.8-7.8 10^3/uL Lymphocytes # (Auto) 1.0 1.0-4.0 10^3/uL Monocytes # (Auto) 0.8 0.0-1.0 10^3/uL Eosinophils # (Auto) 0.0 0.0-0.3 10^3/uL Basophils # (Auto) 0.0 0.0-0.1 10^3/uL Immature Granulocyte # (Auto) 0.1 0.0-0.1 10^3/uL Neutrophils % (Manual) 86 % Lymphocytes % (Manual) 4 % Monocytes % (Manual) 3 % Eosinophils % (Manual) 0 % Basophils % (Manual) 0 % Band Neutrophils 7 % Toxic Granulation 1+ Erythrocyte Sedimentation Rate 25 0-30 MM/HR Urine Color YELLOW Urine Clarity CLEAR Urine pH 7.5 5-9 Urine Specific [place] 1.010 L 1.016-1.022 Urine Protein NEGATIVE NEGATIVE Urine Glucose (UA) NEGATIVE NEGATIVE Urine Ketones 1+ H NEGATIVE Urine Nitrite NEGATIVE NEGATIVE Urine Bilirubin NEGATIVE NEGATIVE Urine Urobilinogen 0.2 < = 1.0 MG/DL Urine Leukocyte Esterase NEGATIVE NEGATIVE Urine RBC (Auto) NEGATIVE NEGATIVE Urine RBC NONE /HPF Urine WBC NONE /HPF Urine Squamous Epithelial Cells RARE /HPF Urine Crystals NONE /LPF Urine Bacteria NEGATIVE /HPF Urine Casts NONE /LPF Urine Mucus NEGATIVE /LPF Urine Culture Indicated NO Sodium Level 136 135-145 MMOL/L Potassium Level 3.8 3.6-5.0 MMOL/L Chloride Level 104 98-107 MMOL/L Carbon Dioxide Level 20 L 21-32 MMOL/L Anion Gap 12 5-14 MMOL/L Blood Urea Nitrogen 8 7-18 MG/DL Creatinine 0.78 0.60-1.30 MG/DL Estimat Glomerular Filtration Rate > 60 BUN/Creatinine Ratio 10 Glucose Level 111 H 70-105 MG/DL Calcium Level 9.2 8.5-10.1 MG/DL Corrected Calcium 9.0 8.5-10.1 MG/DL Magnesium Level 1.5 L 1.6-2.4 MG/DL Total Bilirubin 1.8 H 0.1-1.0 MG/DL Aspartate Amino Transf (AST/SGOT) 16 5-34 U/L Alanine Aminotransferase (ALT/SGPT) 9 0-55 U/L Alkaline Phosphatase 58 40-136 U/L Lactate Dehydrogenase 303 H 125-220 U/L Troponin I < 0.028 <0.028 NG/ML C-Reactive Protein High Sensitivity 7.48 H 0.00-0.50 MG/DL Total Protein 7.2 6.4-8.2 GM/DL Albumin 4.2 3.2-4.5 GM/DL Amylase Level 34 25-125 U/L Lipase < 4 L 8-78 U/L TSH [place] Testing 0.61 0.35-4.94 UIU/ML Lactic Acid Level 1.39 0.50-2.00 MMOL/L Influenza Type A (RT-PCR) Not Detected Not Detecte Influenza Type B (RT-PCR) Not Detected Not Detecte SARS-CoV-2 RNA (RT-PCR) Not Detected Not Detecte My Orders Orders - SHIRIN MEHTA DO Ed Iv/Invasive Line Start (12/02/20:15) Ekg Tracing (12/02/20:) Monitor-Rhythm Ecg Trace Only (12/02/20:) Straight Cath For Spec.-Adult (12/02/20 22:15) Amylase (12/02/20:15) Cbc With Automated Diff (12/02/20:) Comprehensive Metabolic Panel (12/02/20:) Lipase (12/02/20:) Magnesium (12/02/20:15) Thyroid Analyzer (12/02/20:15) Ua Culture If Indicated (12/02/20:) Troponin I (12/02/20:15) Ct Head Wo-R/O Stroke (12/02/20 22:26) Chest 1 View, Ap/Pa Only (12/02/20 22:26) Pelvis (12/02/20 22:26) Manual Differential (12/02/20 22:25) Hs C Reactive Protein (12/02/20 23:45) Erythrocyte Sedimentation Rate (12/02/20 23:45) LDH (12/02/20 23:45) Blood Culture (12/02/20 23:45) Influenza A And B By Pcr (12/02/20 23:45) Covid 19 Inhouse Test (12/02/20 23:45) Vital Signs Adult Sepsis Patie Q15M (12/02/20 23:45) Remove Rings In Anticipation O (12/02/20 23:45) Lactic Acid Analyzer (12/02/20 23:45) Ceftriaxone (Rocephin) (12/02/20 23:45) Azithromycin Injection (Zithromax Inject (12/02/20 23:45) Magnesium 1 Gm/100 Ml Ivpb (Magnesium Carson (12/03/20 00:00) Ct Chest/Abdomen/Pelvis Wo (12/03/20 00:01) Ondansetron Injection (Zofran Injectio (12/03/20 00:45) Medications Given in ED Current Medications Medications Dose Ordered Sig/Lizzie Route Start Time Stop Time Status Last Admin Dose Admin Azithromycin 500 mg/Sodium Chloride 255 ml @ 250 mls/hr ONCE ONCE IV 12/02/20 23:45 12/03/20 00:46 DC 12/03/20 00:34 250 MLS/HR Ceftriaxone Sodium 1000 mg/ Sterile Water 10 ml @ 200 mls/hr ONCE ONCE IV 12/02/20 23:45 12/02/20 23:49 DC 12/03/20 00:34 200 MLS/HR Magnesium Sulfate/ Dextrose 100 ml @ 100 mls/hr ONCE ONCE IV 12/03/20 00:00 12/03/20 00:59 DC 12/03/20 00:10 100 MLS/HR Ondansetron HCl 4 mg ONCE ONCE IVP 12/03/20 00:45 12/03/20 00:46 DC 12/03/20 00:49 4 MG Vital Signs/I&O 12/02/20 21:58 Temp 37.0 Pulse 89 Resp 18 B/P (MAP) 136/62 (86) Pulse Ox 99 O2 Delivery Room Air Capillary Refill : Less Than 3 Seconds Blood Pressure Mean: 86 Progress Note : Progress Note GIVEN IV FLUIDS GIVEN ZOFRAN FOR NAUSEA GIVEN ROCEPHIN AND ZITHROMAX GIVEN IV MAGNESIUM NO DETERIORATION IN PT'S CONDITION DURING ER STAY VITALS STABLE NO FEVER, NO HYPOXIA, NO DYSPNEA, NO HYPOTENSION. ECG Initial ECG Impression Date: Dec 02, 2020 Initial ECG Impression Time: 22:22 Initial ECG Rate: 88 Initial ECG Rhythm: Normal Sinus Diagnostic Imaging Comments CXR--? BILATERAL INFILTRATES ? --PENDING RADIOLOGIST REVIEW CT HEAD--CHRONIC CHANGES AND VOLUME LOSS, NO ACUTE PROCESS, PER [facility] VIA FAX AT [address] CT CHEST/ABDOMEN/PELVIS--RLL ATELECTATIC CHANGES, CARDIOMEGALY AND ASVD, RIGHT LOWER KIDNEY TRANSPLANT--PER [facility] VIA FAX AT 2772 Reviewed: Reviewed by Me Departure Communication (Admissions) THIS FACILITY IS CURRENTLY ON DIVERSION 0149--SPOKE WITH DR. DRIVER, HOSPITALIST EVENT SALES ASSISTANT FOR [facility], AND ALSO ON STAFF AT [facility]. ACCEPTS PT FOR ADMIT TO [facility], PT DOES NOT REQUIRE HIGHER LEVEL OF CARE, DOES NOT REQUIRE ICU CARE OR ANY SUB SPECIALTY SERVICE AT THIS TIME IS AGREEABLE TO THIS PLAN Impression Primary Impression: Generalized weakness Additional Impressions: Frequent falls Pneumonia Hypomagnesemia History of Clostridioides difficile infection Nausea & vomiting Parkinsons Disposition: 02 XFER SHT-TRM HOSP Condition: Stable Transfer Transfer Reason: Diversion Transfer Facility: [facility] Method of Transfer: EMS Departure-Patient Inst. Referrals: [facility] (PCP) Primary Care Physician ANGELINE GUZMAN APRN (Family) Primary Care Physician SHIRIN MEHTA DO Dec 03, 2020 01:06
[2020-12-03 03:02] VITALS: BP 116/63
--- NOTE | 2020-12-03 05:31 | Diagnostic Imaging Report ---
INDICATION: WEAKNESS COMPARISON: 08/12/2020 FINDINGS: Single frontal view of the chest demonstrates normal heart size and pulmonary vascularity. The lungs are well aerated and clear. No large pleural effusion or pneumothorax is seen. The visualized osseous structures show no acute abnormalities. Sternotomy wires are noted. IMPRESSION: 1. No acute cardiopulmonary process. Dictated by: Dictated on workstation # [id number]
--- NOTE | 2020-12-03 05:36 | Diagnostic Imaging Report ---
INDICATION: Fall. COMPARISON: None FINDINGS: A single AP view of the pelvis was performed. There is no radiographic evidence of acute fracture or dislocation. Pubic symphysis is within normal limits. SI joints are symmetric. Proximal femurs are intact, bilaterally. The femoro-acetabular joint spaces appear maintained on this single frontal view. Remainder of the bony pelvis is intact as well. No unexpected radiopaque foreign bodies are seen. Included small bowel loops are nondistended. Impression: 1. No radiographic evidence of acute fracture or dislocation of the bony pelvis. Dictated by: Dictated on workstation # [id number]
--- NOTE | 2020-12-03 06:54 | Diagnostic Imaging Report ---
PROCEDURE: CT chest, abdomen, and pelvis without contrast. TECHNIQUE: Multiple contiguous axial images were obtained through the chest, abdomen, and pelvis without the use of intravenous contrast. Auto Exposure Controls were utilized during the CT exam to meet ALARA standards for radiation dose reduction. INDICATION: Fall. Generalized weakness and malaise. COMPARISON: 07/23/2017 FINDINGS: CT chest: Cardiomediastinal structures show normal heart size. Patient is status post previous aortic valve repair. There is moderate calcified aortic and coronary atherosclerosis. No large pericardial effusion is seen. No pathologically enlarged or morphologically abnormal adenopathy is seen within the mediastinum, ginger, nor axilla. Evaluation lung bishop demonstrates background obstructive pulmonary disease and mild dependent posterior atelectasis. There is no focal consolidation, large effusion, nor pneumothorax. Osseous structures show age-related degenerative changes. No lytic or blastic osseous lesions are seen. CT ABDOMEN: Moderate air and stool is seen scattered throughout the colon. Small bowel loops are nondistended. Normal appendix cannot be adequately identified, but there is no pericecal inflammation. Bilateral red cliff kidneys are absent. Transplant kidney is present within the right hemipelvis and has an unremarkable noncontrast CT appearance. The adrenal glands, spleen, pancreas, and liver have an unremarkable noncontrast CT appearance as well. Urinary bladder is mildly distended. It measures 4.7 cm in diameter. There is no loculated fluid collection, free fluid or free air within the abdomen. No abnormal mesenteric or retroperitoneal adenopathy is seen. Osseous structures show no acute abnormalities. CT pelvis: Urinary bladder is unopacified. No calculi are seen within urinary bladder. There is no loculated fluid collection, free fluid or free air within the pelvis. No abnormal lymph nodes are seen. Osseous structures show no acute abnormalities. IMPRESSION: 1. No acute abnormalities are seen within the chest, abdomen, or pelvis. 2. Mild gallbladder distention. Correlation with npo status is recommended. If there is concern for gallbladder pathology, a right upper quadrant abdominal sonogram is recommended. 3. Moderate colonic air and stool. Please correlate for constipation. Dictated by: Dictated on workstation # [id number]
--- NOTE | 2020-12-03 07:26 | Diagnostic Imaging Report ---
PROCEDURE: CT head wo r/o stroke. TECHNIQUE: Multiple contiguous axial images were obtained through the brain without the use of intravenous contrast. Auto Exposure Controls were utilized during the CT exam to meet ALARA standards for radiation dose reduction. INDICATION: Fall. Generalized weakness. COMPARISON: 11/18/2020 FINDINGS: Evaluation of the intracranial contents is moderately obscured secondary to metallic beam hardening artifact from patient's right-sided cochlear implant. There is no new large area of decreased attenuation or conspicuous area of loss of normal patterson-white matter differentiation to suggest new acute territorial infarct. Again identified are scattered and confluent areas of decreased attenuation within the periventricular and subcortical deep white matter consistent with background chronic small vessel ischemic changes. Ventricles and cortical sulci remain mildly diffusely prominent consistent with underlying age-related parenchymal volume loss. There is no new mass effect or midline shift. There is no evidence of intra or extra-axial intracranial hemorrhage. Bony calvarium is intact. Paranasal sinuses are clear. IMPRESSION: 1. Moderate image degradation secondary to metallic beam hardening artifact from indwelling cochlear implant, but no appreciable new acute intracranial abnormality is seen. There is no CT evidence of acute infarct, mass, nor hemorrhage. 2. Redemonstration background age-related parenchymal volume loss and chronic small vessel ischemic changes in the deep white matter. Dictated by: Dictated on workstation # [id number]
== END 2020-12-03 03:01 | disposition short-term general hospital (02) ==
LOC: EDUNIT# 21:38 → ER 21:40
DX: R53.1 Weakness (principal); J18.9 Pneumonia, unspecified organism; G20 Parkinson's disease; R11.2 Nausea with vomiting, unspecified; E83.42 Hypomagnesemia; R29.6 Repeated falls; I13.0 Hypertensive heart and chronic kidney disease with heart failure and stage 1 through stage 4 chronic kidney disease, or unspecified chronic kidney disease; E11.22 Type 2 diabetes mellitus with diabetic chronic kidney disease; I50.9 Heart failure, unspecified; N18.9 Chronic kidney disease, unspecified; E11.36 Type 2 diabetes mellitus with diabetic cataract; E78.00 Pure hypercholesterolemia, unspecified; I48.0 Paroxysmal atrial fibrillation; K21.9 Gastro-esophageal reflux disease without esophagitis; K58.9 Irritable bowel syndrome, unspecified; G89.29 Other chronic pain; M54.9 Dorsalgia, unspecified; F41.9 Anxiety disorder, unspecified; F32.9 Major depressive disorder, single episode, unspecified; Z95.4 Presence of other heart-valve replacement; Z96.21 Cochlear implant status; Z97.0 Presence of artificial eye; Z94.0 Kidney transplant status; Z99.2 Dependence on renal dialysis; Z86.19 Personal history of other infectious and parasitic diseases; Z79.82 Long term (current) use of aspirin; Z79.899 Other long term (current) drug therapy; Z20.822 Contact with and (suspected) exposure to COVID-19
CPT/HCPCS: 36415; 51701; 70450; 71045; 71250; 72170; 74176; 80053; 81000; 82150; 83615; 83690; 83735; 84145; 84443; 84484; 85007; 85027; 85652; 86141; 87040; 93005; 93041; 96365; 96367; 96375

== ENCOUNTER 2021-02-06 02:16 | Emergency (ER) | payer MEDICARE, OTHER | END 2021-02-06 03:00 | disposition left against medical advice (07) | LOC: EDUNIT# 02:16 → ER 02:18 | DX: M79.605 Pain in left leg (principal) ==

== ENCOUNTER 2021-08-08 00:03 | Inpatient (IN) | payer MEDICARE, OTHER ==
[~2021-08-08] VITALS: Ht 152 cm; Wt 60.2 kg
[2021-08-08] VITALS (8 sets, daily range): BP systolic 139–167; BP diastolic 66–77
[~2021-08-08 00:03] MED LIST changes: -AMIO200T6 PO; +AMIO200T65 PO; +DICY20TA PO; -DICY20TA10 PO; +POTA-169 PO; -POTA20TA8 PO; -QUET25TA34 PO; +QUET25TA35 PO
[2021-08-08] MEDS ORDERED: LACTATED RINGERS 1,000 ML IV ONE ×3 (00:30→04:24)
[2021-08-08 00:53] LABS: BASOPHILS # (AUTO) 0.1 10^3/uL (0.0-0.1); BASOPHILS % (AUTO) 0 % (0-10); EOSINOPHILS # (AUTO) 0.1 10^3/uL (0.0-0.3); EOSINOPHILS % (AUTO) 0 % (0-10); HEMATOCRIT 38 % (35-52); LYMPHOCYTES # (AUTO) 0.8 10^3/uL (1.0-4.0); LYMPHOCYTES % (AUTO) 4 % (12-44); MEAN CORPUSCULAR HEMOGLOBIN 30 pg (25-34); MEAN CORPUSCULAR HGB CONC 34 g/dL (32-36); MEAN CORPUSCULAR VOLUME 87 fL (80-99); MEAN PLATELET VOLUME 10.3 fL (9.0-12.2); MONOCYTES # (AUTO) 0.8 10^3/uL (0.0-1.0); MONOCYTES % (AUTO) 4 % (0-12); NEUTROPHILS # (AUTO) 18.8 10^3/uL (1.8-7.8); NEUTROPHILS % (AUTO) 91 % (42-75); PLATELET COUNT 207 10^3/uL (130-400); WHITE BLOOD COUNT 20.6 10^3/uL (4.3-11.0)
[2021-08-08 01:08] LABS: ALBUMIN 4.1 GM/DL (3.2-4.5); POTASSIUM 4.3 MMOL/L (3.6-5.0)
[2021-08-08 01:09] LABS: CALCIUM 8.8 MG/DL (8.5-10.1)
[2021-08-08 01:11] LABS: TOTAL PROTEIN 7.2 GM/DL (6.4-8.2)
[2021-08-08 01:12] LABS: BILIRUBIN,TOTAL 0.8 MG/DL (0.1-1.0)
[2021-08-08 01:14] LABS: CREATININE SERUM 0.82 MG/DL (0.60-1.30)
[2021-08-08 01:17] LABS: MAGNESIUM 1.6 MG/DL (1.6-2.4)
[2021-08-08 01:28] LABS: BILIRUBIN,URINE NEGATIVE (NEGATIVE); CLARITY,URINE CLEAR; COLOR,URINE YELLOW; GLUCOSE, URINE (UA) NEGATIVE (NEGATIVE); KETONES,URINE TRACE (NEGATIVE); LEUKOCYTE ESTERASE ,URINE 1+ (NEGATIVE); NITRITE,URINE POSITIVE (NEGATIVE); PROTEIN,URINE NEGATIVE (NEGATIVE)
[2021-08-08 01:33] LABS: BAND NEUTROPHILS 2 %; ERYTHROCYTE SEDIMENTATION RATE 13 MM/HR (0-30); LYMPHOCYTES % (MANUAL) 12 %; MONOCYTES % (MANUAL) 4 %; NEUTROPHILS % (MANUAL) 82 %; RBC MORPH NORMAL
[2021-08-08 01:47] LABS: BACTERIA,URINE MODERATE /HPF; SQUAMOUS EPITHELIAL CELL,UR 0-2 /HPF
[2021-08-08] MEDS ORDERED: cefTRIAXone 1 GM PRE-MIX 50 ML IV ONE (02:15)
--- NOTE | 2021-08-08 02:26 | ED General ---
General Chief Complaint: Abdominal/GI Problems Stated Complaint: POSS C-DIFF,FALL Nursing Triage Note: Pt arrives per POV w/ from home w/ c/o diarrhea x 2weeks and fall. Source of Information: Patient, Spouse ( DOES MOST OF TALKING FOR PT, AND IS SOMEWHAT HOSTILE AND DEMANDING ) History of Present Illness Date Seen by Provider: Aug 08, 2021 Time Seen by Provider: 00:16 Initial Comments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llergies and Home Medications Allergies Coded Allergies: codeine (Unverified Allergy, Unknown, 02/12/17) morphine (Verified Allergy, Unknown, NAUSEA, 02/12/17) Patient Home Medication List Home Medication List Reviewed: Yes Alosetron HCl (Lotronex) 0.5 Mg Tab, 0.5 MG PO BID, (Reported) Entered as Reported by: MARISEL BARRY on 07/31/20 0530 Amlodipine Besylate (Amlodipine Besylate) 2.5 Mg Tablet, 2.5 MG PO DAILY, (Reported) Entered as Reported by: CASE MARINELLI on 08/01/20 1015 Ascorbate Calcium (Vitamin C) 500 Mg Tablet, 500 MG PO DAILY, (Reported) Entered as Reported by: ANUSHKA LUNA on 08/29/16 0947 Aspirin (Adult Low Dose Aspirin EC) 81 Mg Tablet.dr, 81 MG PO DAILY, (Reported) Entered as Reported by: SANTIAGO VILLARREAL on 08/28/16 1842 Brinzolamide (Azopt) 10 Ml Btl, 1 DROP OD BID, (Reported) Entered as Reported by: ANUSHKA LUNA on 08/29/16 0947 Bupropion HCl (Bupropion HCl) 75 Mg Tablet, 75 MG PO DAILY, (Reported) Entered as Reported by: MALDONADO LAN on 11/18/20 1131 Cefdinir (Cefdinir) 300 Mg Capsule, 300 MG PO BID Prescribed by: JOSEPH DRIVER on 11/19/20 1225 Clonazepam (Clonazepam) 0.5 Mg Tablet, 0.25 MG PO 1200,2100 PRN for ANXIETY, (Reported) Entered as Reported by: PABLO VELASCO on 02/12/17 1132 Cranberry Fruit (Cranberry) 450 Mg Tablet, 450 MG PO BID, (Reported) Entered as Reported by: MALDONADO LAN on 09/02/20 1517 Cyclosporine (Restasis) 1 Each Droperette, 1 EACH OD BID, (Reported) Entered as Reported by: MALDONADO LAN on 03/23/20 1521 Dicyclomine HCl (Dicyclomine HCl) 20 Mg Tablet, 10 MG PO QID, (Reported) Entered as Reported by: MALDONADO LAN on 03/23/20 1518 Famotidine (Acid Mer[employer] Utility Worker (FAMOTIDINE)) 20 Mg Tablet, 20 MG PO DAILY, (Reported) Entered as Reported by: PABLO VELASCO on 02/12/17 1132 Fluticasone Propionate (Flonase Allergy Relief) 9.9 Ml [place].susp, 2 SPRAY NS DAILY PRN for CONGESTION, (Reported) Entered as Reported by: MALDONADO LAN on 03/23/20 1518 Folic Acid/Vitamin B Comp W-C (Nephro-Rodrick Tablet) 0.8 Mg Tablet, 0.8 MG PO DAILY, (Reported) Entered as Reported by: MALDONADO LAN on 08/02/20 1401 Gabapentin (Gabapentin) 600 Mg Tablet, 600 MG PO TID, (Reported) Entered as Reported by: MALDONADO LAN on 03/23/20 1518 L.acidoph & Paracasei,B.lactis (Probiotic) 1 Each Capsule, 1 CAP PO DAILY, (Reported) Entered as Reported by: HUSSEIN LOPEZ on 04/02/15 032 Loperamide HCl/Simethicone (Imodium Multi-Symptom Rel Cplt) 1 Each Tablet, 1 TAB PO DAILY PRN for DIARRHEA, (Reported) Entered as Reported by: HUSSEIN LOPEZ on 04/02/15 032 Mirtazapine (Mirtazapine) 7.5 Mg Tablet, 7.5 MG PO HS, (Reported) Entered as Reported by: MARISEL BARRY on 07/31/20 0530 Multivitamin (Multivitamin) 1 Each Tablet, 1 EACH PO DAILY, (Reported) Entered as Reported by: MALDONADO LAN on 11/18/20 1131 Mycophenolate Sodium (Mycophenolic Acid) 360 Mg Tablet.dr, 360 MG PO BID, (Reported) Entered as Reported by: MALDONADO LAN on 03/23/20 1518 Pitavastatin Calcium (Livalo) 2 Mg Tablet, 2 MG PO DAILY, (Reported) Entered as Reported by: MALDONADO LAN on 09/02/20 1556 Quetiapine Fumarate (Quetiapine Fumarate) 25 Mg Tablet, 25 MG PO 2100, (Reported) Entered as Reported by: MALDONADO LAN on 11/18/20 1131 Tacrolimus (Prograf) 1 Mg Capsule, 1 MG PO BID, (Reported) Entered as Reported by: HUSSEIN LOPEZ on 04/02/15 032 Vancomycin HCl (Vancomycin HCl) 125 Mg Capsule, 125 MG PO BID Prescribed by: JOSEPH DRIVER on 11/19/20 7475 Review of Systems Review of Systems Constitutional: see HPI; No dizziness, No fever; malaise, weakness EENTM: no symptoms reported Respiratory: no symptoms reported; No cough, No short of breath Cardiovascular: no symptoms reported; No chest pain Gastrointestinal: see HPI, diarrhea; No nausea, No vomiting Genitourinary: see HPI, decreased output; No dysuria Musculoskeletal: no symptoms reported Skin: no symptoms reported Psychiatric/Neurological: No Symptoms Reported; Denies Headache, Denies Numbness, Denies Paresthesia, Denies Tingling, Denies Weakness; Other (PARKINSON'S) Hematologic/Lymphatic: No Symptoms Reported Immunological/Allergic: see HPI, transplant Past Kadpvbx-[id number]-Lezufx Hx Patient Social History Tobacco Use?: No Smoking Status: Never a Smoker Use of E-Cig and/or Vaping dev: No Substance use?: No Alcohol Use?: No Immunizations Up To Date Tetanus Booster (TDap): Unknown PED Vaccines UTD: No Influenza Vaccine Up-to-Date: Yes; Up-to-Date First/Initial COVID19 Vaccinat: 08/08 Second COVID19 Vaccination Lg: 09/05 Seasonal Allergies Seasonal Allergies: Yes Past Medical History Surgeries: Yes (COCHLEAR IMPLANT, CARDIAC ABLATION, AORTIC VALVE, KIDNEY TRANSPLANT) Appendectomy, Cardiac, Dialysis, Ear Surgery, Eye Surgery, Hysterectomy, Kidney Transplant, Nephrectomy, Oophorectomy, Orthopedic, Renal, Tonsillectomy, Valve Replacement, Vascular Surgery Respiratory: Yes Pneumonia Currently Using CPAP: No Currently Using BIPAP: No Cardiac: Yes ( CHF; AORTIC PIG VALVE FOR AORTIC STENOSIS ; PAROXYSMAL ATRIAL FIB. 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: Hysterectomy, Menopausal Sexually Transmitted Disease: No HIV/AIDS: No Genitourinary: Yes (BILATERAL NEPHRECTOMY AND RENAL TRANSPLANT, dialysis prior to transplant) Kidney Infection, Renal Failure, Dialysis, UTI-Chronic, Polycystic Kidney Disease Gastrointestinal: Yes (H.PYLORI; GASTROPARESIS) Gastroesophageal Reflux, Chronic Diarrhea, Polyps, C-Diff, Irritable Bowel Musculoskeletal: Yes (FREQUENT FALLS/USES WALKER;CHRONIC GENERALIZED WEAKNESS) Degenerate Disk Disease, Arthritis, Chronic Back Pain Endocrine: Yes Parathyroid Disease, Diabetes, Non-Insulin dep HEENT: Yes (LEFT EYE REMOVED DUE TO UVEITIS; RIGHT COCHLEAR IMPLANT) Cataract, Glaucoma Hearing Impairment: Hard of Hearing, Hearing Aide Left Cancer: Yes Kidney Did You Recieve Any Treatments: Yes What Type of Treatment Did You: Surgical Intervention Psychosocial: Yes Anxiety, Depression Integumentary: No Blood Disorders: No Adverse Reaction/Blood Tranf: No (HAS HAD BLOOD WITH NO REACTION) Family Medical History Alzheimer's disease 19 MOTHER (later in life) Dementia 19 MOTHER No Pertinent Family Hx PAST SURGICAL HISTORY: -LEFT EYE REMOVED/ARTIFICIAL EYE DUE TO UVEITIS -RIGHT COCHLEAR IMPLANT -DIALYSIS SHUNT LEFT ARM--DIALYSIS X 4 YEARS -MULTIPLE REVISIONS OF DIALYSIS AV GRAFT -PERITONEAL DIALYSIS SHUNT -BILATERAL NEPHRECTOMY WITH RENAL TRANSPLANT-IN RLQ OF ABDOMEN--6 YEARS AGO--FOR POLYCYSTIC KIDNEY DISEASE -CARDIAC ABLATION -AORTIC VALVE REPLACEMENT WITH PIG VALVE FOR AORTIC STENOSIS -TONSILLECTOMY -APPENDECTOMY -HYSTERECTOMY/ LATER BSO -CARDIAC CATH 2010--NON-OBSTRUCTIVE DISEASE, NO INTERVENTION -BILATERAL PULMONARY VEIN ABLATION WITH STAPLE AMPTUATION OF LEFT ATRIAL APPENDAGE AT SAME TIME AORTIC VALVE REPLACEMENT -EGD/COLONOSCOPIES/POLYPECTOMIES -EXCISION OF LEFT HIP HEMATOMA 01/2017 [facility] [place]. Physical Exam Vital Signs Vital Signs - First Documented 08/08/21 00:20 Pulse 85 Resp 22 B/P (MAP) 139/73 (95) Capillary Refill : Less Than 3 Seconds Height, Weight, BMI Height: 5'1.00" Weight: 127lbs. 1.0oz. [id number]; 25.00 BMI Method:Stated General Appearance: No Apparent Distress, WD/WN, Other (MILDLY RADHA RGIC/GENERALIZED WEAKNESS, ABLE TO STAND AND TRANSFER FROM WHEELCHAIR TO ER CART WITH MINIMAL ASSIST. DOES NOT APPEAR TO BE IN ANY DISCOMFORT OR DISTRESS. ) HEENT: Other (ARTIFICIAL LEFT EYE. RIGHT COCHLEAR IMPLANT. ) Neck: Normal Inspection; No JVD Respiratory: Normal Breath Sounds, No Accessory Muscle Use, No Respiratory Distress Cardiovascular: Regular Rate, Rhythm, No Edema, No JVD, No Murmur, Normal Peripheral Pulses Gastrointestinal: Normal Bowel Sounds, No Organomegaly, Non Tender, Soft Back: No CVA Tenderness Extremity: Normal Capillary Refill, Normal Inspection, Normal Range of Motion, Non Tender, No Calf Tenderness, No Pedal Edema Neurologic/Psychiatric: Alert, Oriented x3, No Motor/Sensory Deficits, light bulb tester II- XII Norm as Tested Skin: Normal Color, Warm/Dry Focused Exam Sepsis Stage: Sepsis Possible Source: Genitouriary Time of Focused Exam: 02:10 Respiratory: Normal Breath Sounds, No Accessory Muscle Use, No Respiratory Distress Cardiovascular: Regular Rate, Rhythm, No Edema, No Murmur Capillary Refill: Less Than 3 Seconds Skin: normal color, warm/dry Within 3hrs of presentation: Admin fluids, Admin ABX, Blood cultures prior to ABX's, Focus exam, Lactate level Progress/Results/Core Measures Suspected Sepsis SIRS Temperature: Pulse: 85 Respiratory Rate: 22 Laboratory Tests 08/08/21 00:40: White Blood Count 20.6H Blood Pressure 139 /73 Mean: 95 Laboratory Tests 08/08/21 00:40: Creatinine 0.82, Platelet Count 207, Total Bilirubin 0.8 Results/Orders Lab Results Laboratory Tests Test 08/08/21 00:40 08/08/21 01:10 08/08/21 01:20 Range/Units White Blood Count 20.6 H 4.3-11.0 10^3/uL Red Blood Count 4.36 3.80-5.11 10^6/uL Hemoglobin 13.0 11.5-16.0 g/dL Hematocrit 38 35-52 % Mean Corpuscular Volume 87 80-99 fL Mean Corpuscular Hemoglobin 30 25-34 pg Mean Corpuscular Hemoglobin Concent 34 32-36 g/dL Red Cell Distribution Width 13.0 10.0-14.5 % Platelet Count 207 130-400 10^3/uL Mean Platelet Volume 10.3 9.0-12.2 fL Immature Granulocyte % (Auto) 1 % Neutrophils (%) (Auto) 91 H 42-75 % Lymphocytes (%) (Auto) 4 L 12-44 % Monocytes (%) (Auto) 4 0-12 % Eosinophils (%) (Auto) 0 0-10 % Basophils (%) (Auto) 0 0-10 % Neutrophils # (Auto) 18.8 H 1.8-7.8 10^3/uL Lymphocytes # (Auto) 0.8 L 1.0-4.0 10^3/uL Monocytes # (Auto) 0.8 0.0-1.0 10^3/uL Eosinophils # (Auto) 0.1 0.0-0.3 10^3/uL Basophils # (Auto) 0.1 0.0-0.1 10^3/uL Immature Granulocyte # (Auto) 0.1 0.0-0.1 10^3/uL Neutrophils % (Manual) 82 % Lymphocytes % (Manual) 12 % Monocytes % (Manual) 4 % Band Neutrophils 2 % Blood Morphology Comment NORMAL Erythrocyte Sedimentation Rate 13 0-30 MM/HR Sodium Level 134 L 135-145 MMOL/L Potassium Level 4.3 3.6-5.0 MMOL/L Chloride Level 104 98-107 MMOL/L Carbon Dioxide Level 15 L 21-32 MMOL/L Anion Gap 15 H 5-14 MMOL/L Blood Urea Nitrogen 11 7-18 MG/DL Creatinine 0.82 0.60-1.30 MG/DL Estimat Glomerular Filtration Rate 76 BUN/Creatinine Ratio 13 Glucose Level 97 70-105 MG/DL Calcium Level 8.8 8.5-10.1 MG/DL Corrected Calcium 8.7 8.5-10.1 MG/DL Magnesium Level 1.6 1.6-2.4 MG/DL Total Bilirubin 0.8 0.1-1.0 MG/DL Aspartate Amino Transf (AST/SGOT) 19 5-34 U/L Alanine Aminotransferase (ALT/SGPT) 8 0-55 U/L Alkaline Phosphatase 74 40-136 U/L C-Reactive Protein High Sensitivity 2.61 H 0.00-0.50 MG/DL Total Protein 7.2 6.4-8.2 GM/DL Albumin 4.1 3.2-4.5 GM/DL Amylase Level 37 25-125 U/L Lipase 4 L 8-78 U/L Procalcitonin 0.07 <0.10 NG/ML Influenza Type A (RT-PCR) Not Detected Not Detecte Influenza Type B (RT-PCR) Not Detected Not Detecte SARS-CoV-2 RNA (RT-PCR) Not Detected Not Detecte Urine Color YELLOW Urine Clarity CLEAR Urine pH 6.0 5-9 Urine Specific [place] <=1.005 1.016-1.022 Urine Protein NEGATIVE NEGATIVE Urine Glucose (UA) NEGATIVE NEGATIVE Urine Ketones TRACE H NEGATIVE Urine Nitrite POSITIVE H NEGATIVE Urine Bilirubin NEGATIVE NEGATIVE Urine Urobilinogen 0.2 < = 1.0 MG/DL Urine Leukocyte Esterase 1+ H NEGATIVE Urine RBC (Auto) NEGATIVE NEGATIVE Urine RBC NONE /HPF Urine WBC 5-10 H /HPF Urine Squamous Epithelial Cells 0-2 /HPF Urine Crystals NONE /LPF Urine Bacteria MODERATE H /HPF Urine Casts NONE /LPF Urine Mucus NEGATIVE /LPF Urine Culture Indicated YES My Orders Orders - SHIRIN MEHTA DO Ed Iv/Invasive Line Start (08/08/21 00:28) Monitor-Rhythm Ecg Trace Only (08/08/21:28) Amylase (08/08/21:28) Cbc With Automated Diff (08/08/21) Comprehensive Metabolic Panel (08/08/21) Hs C Reactive Protein (08/08/21:28) Lipase (08/08/21:28) Magnesium (08/08/21:) Ua Culture If Indicated (08/08/21) Stool Culture (08/08/21) Fecal Wbc (08/08/21:) Erythrocyte Sedimentation Rate (08/08/21:28) Ed Iv/Invasive Line Start (08/08/21:28) Lactated Ringers (Lr 1000 Ml Iv Solution (08/08/21 00:30) Fecal Wbc (08/08/21:28) C Difficile Ag + Toxin A/B. (08/08/21 00:28) Chest 1 View, Ap/Pa Only (08/08/21:) Pelvis (08/08/21:28) Isolation Central Supply Req (08/08/21 00:28) Procalcitonin (Pct) (08/08/21 00:28) Covid 19 Inhouse Test (08/08/21:28) Influenza A And B By Pcr (08/08/21:28) Isolation Central Supply Req (08/08/21:28) Manual Differential (08/08/21 00:40) Urine Culture (08/08/21 01:20) Blood Culture (08/08/21 02:08) Ed Iv/Invasive Line Start (08/08/21 02:08) Vital Signs Adult Sepsis Patie Q15M (08/08/21 02:08) Remove Rings In Anticipation O (08/08/21 02:08) Ceftriaxone 1 Gm Pre-Mix (Rocephin 1 Gm (08/08/21 02:15) Ed Iv/Invasive Line Start (08/08/21 02:08) Lactated Ringers (Lr 1000 Ml Iv Solution (08/08/21 02:15) Ct Abdomen/Pelvis Wo (08/08/21 02:15) Medications Given in ED Current Medications Medications Dose Ordered Sig/Lizzie Route Start Time Stop Time Status Last Admin Dose Admin Ceftriaxone Sodium/Dextrose 50 ml @ 100 mls/hr ONCE ONCE IV 08/08/21 02:15 08/08/21 02:44 DC 08/08/21 03:27 100 MLS/HR Lactated Ringer's 1,000 ml @ 0 mls/hr Q0M ONCE IV 08/08/21 00:30 08/08/21 00:31 DC 08/08/21 03:24 1,000 MLS/HR Lactated Ringer's 1,000 ml @ 0 mls/hr Q0M ONCE IV 08/08/21 02:15 08/08/21 02:16 DC 08/08/21 04:29 1,000 MLS/HR Vital Signs/I&O 08/08/21 00:20 Pulse 85 Resp 22 B/P (MAP) 139/73 (95) Capillary Refill : Less Than 3 Seconds Blood Pressure Mean: 95 Progress Note : Progress Note PLACED IN ISOLATION ROOM PPE WORN COVID AND FLU TESTING DONE GIVEN IV FLUIDS AND ROCEPHIN SEPSIS PROTOCOL INITIATED NO DETERIORATION IN PT'S CONDITION DURING ER STAY PT HAD NO COMPLAINTS OF ANY KIND NO DIARRHEA AT ANY TIME NO FEVER NO DYSPNEA NO HYPOXIA NO HYPOTENSION NO TACHYCARDIA PT STATES SHE WISHES TO BE DNR/DNI Diagnostic Imaging Comments CT ABDOMEN/PELVIS--PER [facility] VIA FAX AT 0326 MILDLY THICKENED TRANSVERSE AND DESCENDING COLON. Reviewed: Reviewed by Me Departure Communication (Admissions) [id number]--SPOKE WITH DR. DRIVER, ACCEPTS PT FOR ADMIT. ORDERS NOTED. Impression Primary Impression: Sepsis Additional Impressions: UTI (urinary tract infection) Generalized weakness Diarrhea Hx of Clostridium difficile infection Renal transplant recipient Frequent falls Parkinsons Disposition: ADMITTED INPATIENT Condition: Stable Admissions Decision to Admit Reason: Admit from ER (General) Decision to Admit/Date: Aug 08, 2021 Time/Decision to Admit Time: 03:35 Departure-Patient Inst. Referrals: [facility] (PCP) Primary Care Physician ANGELINE GUZMAN APRN (Family) Primary Care Physician SHIRIN MEHTA DO Aug 08, 2021 02:26
[2021-08-08] MEDS ORDERED: NS IV ONE (04:45)
[2021-08-08] MEDS ORDERED: ACETAMINOPHEN 500 MG TAB (TYLENOL) PO PRN (05:30)
[2021-08-08] MEDS ORDERED: ONDANSETRON 4 MG/2 ML (SDV) Z0FRAN IV PRN ×2 (05:30→05:45)
[2021-08-08] MEDS ORDERED: diphenhydrAMINE 50 MG/ML INJ (BENADRYL) IVP PRN (05:45)
[2021-08-08] MEDS ORDERED: ANTACID SUSP 30 ML UDC (MYLANTA) PO PRN (05:45)
[2021-08-08] MEDS ORDERED: polyethylene glycoL POWDER 17 GM (MIRALAX) PACK PO PRN (05:45)
[2021-08-08] MEDS ORDERED: MELATONIN 3 MG TABLET PO PRN (05:45)
[2021-08-08] MEDS ORDERED: clonazePAM 0.5 MG (KlonoPIN) TAB PO PRN (05:45)
[2021-08-08] MEDS ORDERED: ONDANSETRON 4 MG (ZOFRAN) ORAL DISSOLVE TAB PO PRN (05:45)
[2021-08-08] MEDS ORDERED: MILK OF MAGNESIA 400 MG/5 ML 30 ML UDC PO PRN (05:45)
[2021-08-08] MEDS ORDERED: ACETAMINOPHEN 325 MG TABLET PO PRN (05:45)
[2021-08-08] MEDS ORDERED: CALCIUM CARBONATE 500 MG (TUMS) TAB.CHEW PO PRN (05:45)
[2021-08-08] MEDS ORDERED: diphenhydrAMINE 25 MG TAB (BENADRYL) PO PRN (05:45)
[2021-08-08] MEDS ORDERED: LACTULOSE SYRUP 10GM/15ML (ENULOSE) 30ML UDC PO PRN (05:45)
[2021-08-08] MEDS ORDERED: BISACODYL 10 MG SUPP (DULCOLAX) PR PRN (05:45)
[2021-08-08] MEDS: LACTATED RINGERS 1,000 ML IV SCH ×2 (05:54→17:58)
[2021-08-08] MEDS ORDERED: inSUlin ASPART (NovoLOG) 1 UNIT/0.01 ML (CHARGE PER UNIT) SC SCH (06:00)
[2021-08-08 06:10] LABS: BASOPHILS % (AUTO) 0 % (0-10); EOSINOPHILS % (AUTO) 0 % (0-10); HEMATOCRIT 33 % (35-52); HEMOGLOBIN 11.5 g/dL (11.5-16.0); LYMPHOCYTES # (AUTO) 1.2 10^3/uL (1.0-4.0); LYMPHOCYTES % (AUTO) 7 % (12-44); MEAN CORPUSCULAR HEMOGLOBIN 30 pg (25-34); MEAN CORPUSCULAR HGB CONC 34 g/dL (32-36); MEAN CORPUSCULAR VOLUME 87 fL (80-99); MEAN PLATELET VOLUME 10.3 fL (9.0-12.2); MONOCYTES # (AUTO) 0.8 10^3/uL (0.0-1.0); MONOCYTES % (AUTO) 5 % (0-12); NEUTROPHILS # (AUTO) 14.8 10^3/uL (1.8-7.8); NEUTROPHILS % (AUTO) 87 % (42-75); PLATELET COUNT 177 10^3/uL (130-400)
[2021-08-08 06:23] LABS: POTASSIUM 3.8 MMOL/L (3.6-5.0)
[2021-08-08 06:24] LABS: CALCIUM 8.6 MG/DL (8.5-10.1)
[2021-08-08 06:28] LABS: CREATININE SERUM 0.68 MG/DL (0.60-1.30)
[2021-08-08] MEDS ORDERED: FLUTICASONE NASAL SPRAY (FLONASE) 16 GM BTL NS PRN (06:45)
--- NOTE | 2021-08-08 06:48 | Diagnostic Imaging Report ---
EXAMINATION: Chest radiograph, portable AP view. DATE: 08/08/2021 1:30 AM INDICATION: 71-year-old female, fall. Chest pain. COMPARISON: December 02, 2020. FINDINGS: There are median sternotomy wires. There is valvular hardware. Heart size and mediastinal contours are unchanged. There is no identified pneumothorax. There is no large pleural effusion. There is no identified focal airspace consolidation. IMPRESSION: No identified acute cardiopulmonary abnormality. Dictated by: Dictated on workstation # [id number]
--- NOTE | 2021-08-08 06:49 | Diagnostic Imaging Report ---
EXAMINATION: Pelvis, single view. COMPARISON: Pelvic radiograph December 02, 2020. HISTORY: 71-year-old female, fall. Pelvic pain. FINDINGS: The patient is rotated. The pubic symphysis and sacroiliac joints are normally aligned. The hips are not obviously dislocated. There is no identified acute fracture. There are vascular calcifications. There are degenerative changes of the lower lumbar spine. Joint spaces of both hips appear well-preserved. IMPRESSION: 1. No identified acute bony abnormality of the pelvis. 2. Degenerative changes of the lower lumbar spine. Dictated by: Dictated on workstation # [id number]
--- NOTE | 2021-08-08 07:00 | Diagnostic Imaging Report ---
PROCEDURE: CT abdomen and pelvis without contrast. TECHNIQUE: Multiple contiguous axial images were obtained through the abdomen and pelvis without the use of intravenous contrast. Auto Exposure Controls were utilized during the CT exam to meet ALARA standards for radiation dose reduction. DATE: August 08, 2021. COMPARISON: CT chest, abdomen, and pelvis December 03, 2020. INDICATION: 71-year-old female, diarrhea and abdominal pain. FINDINGS: There are limitations for evaluation of the abdominal organs, neoplastic processes, abscess, and limited evaluation of the vasculature relating to the lack of intravenous contrast. There are mild linear opacities in the right and left lower lobes compatible with mild atelectasis. The heart is not enlarged. There is no pericardial effusion. There are coronary artery calcifications and additional areas of atherosclerotic disease. The liver is unremarkable in size and contour. The gallbladder is mildly distended. There is no CT apparent gallstone. There is no gallbladder wall thickening. There is no intrahepatic or extrahepatic bile duct dilation. The main pancreatic duct is not grossly dilated. Limited noncontrast CT assessment of the pancreatic parenchyma is unremarkable. The spleen is not enlarged. The adrenal glands are unremarkable. The [place] kidneys are absent. There is a right renal transplant. There is no hydronephrosis. There is no identified renal or ureteral stone. There is a Kong catheter within the urinary bladder which is collapsed and not well evaluated. The uterus is not seen and may be surgically absent. There is mild long segment wall thickening of the colon involving the rectum, left colon, and transverse colon. There is no evidence to suggest acute appendicitis. There is no free intraperitoneal air. There is no drainable fluid collection. There is no sizable volume free fluid in the abdomen or pelvis. There is no identified abnormally enlarged lymph node in the abdomen or pelvis which meets CT size criteria for adenopathy. There is a small fat-containing umbilical hernia. There is scoliosis. There are multilevel degenerative changes of the spine. There are median sternotomy wires. IMPRESSION: CT ABDOMEN AND PELVIS. 1. Long segment mild wall thickening of the colon involving the rectum, sigmoid colon, left colon, and transverse colon, most consistent with a nonspecific colitis. Infectious and inflammatory etiologies are favored. 2. Right renal transplant is noted without hydronephrosis. Agree with the provided preliminary report. Dictated by: Dictated on workstation # [id number]
[2021-08-08] MEDS ORDERED: amLODIPine 2.5MG (NORVASC) TAB PO SCH (09:00)
[2021-08-08] MEDS ORDERED: NON-FORMULARY MEDICATION 1 EA EA (Cranberry Fruit (Cranberry) 450 MG) PO SCH (09:00)
[2021-08-08] MEDS ORDERED: DICYCLOMINE 10 MG (BENTYL) CAP PO SCH (09:00)
[2021-08-08] MEDS ORDERED: buPROPion 75 MG (WELLBUTRIN) TAB PO SCH (09:00)
[2021-08-08] MEDS ORDERED: ALOSETRON HCL 0.5 MG PO SCH (09:00)
[2021-08-08] MEDS ORDERED: VANCOMYCIN 125 MG CAPSULE PO SCH (09:00)
[2021-08-08] MEDS ORDERED: VITAMIN B COMP W C PO SCH (09:00)
[2021-08-08] MEDS ORDERED: FAMOTIDINE 20 MG (PEPCID) TABLET PO SCH (09:00)
[2021-08-08] MEDS ORDERED: [UNRECOGNIZED DRUG - OTHER] PO SCH (09:00)
[2021-08-08] MEDS ORDERED: MYCOPHENOLATE SODIUM 360 MG PO SCH (09:00)
[2021-08-08] MEDS ORDERED: FOLIC ACID PO SCH (09:00)
[2021-08-08] MEDS ORDERED: TACROLIMUS 1 MG (PROGRAF) CAP NON-FORMULARY PO SCH (09:00)
[2021-08-08] MEDS: MULTIVIT W/MINERALS TAB (THERAGRAN M) PO SCH (09:10)
[2021-08-08] MEDS: ASPIRIN E.C. 81 MG (ECOTRIN) TAB PO SCH (09:10)
[2021-08-08] MEDS: GABAPENTIN 600 MG (NEURONTIN) TAB PO SCH ×3 (09:10→21:26)
[2021-08-08] MEDS: ASCORBIC ACID (VIT C) 500 MG TABLET PO SCH (09:11)
[2021-08-08] MEDS: SENNOSIDES 8.6 MG (SENOKOT) TAB PO SCH ×2 (09:11→21:00)
[2021-08-08] MEDS: ARTIFICAL TEARS 0.4 ML UNIT DOSE (REFRESH PLUS) OD SCH ×2 (09:12→21:22)
[2021-08-08] MEDS: DOCUSATE SODIUM 100 MG (COLACE) CAP PO SCH ×2 (09:13→21:00)
[2021-08-08] MEDS: DORZOLAMIDE 2% 10 ML BTL (TRUSOPT) OD SCH ×2 (09:13→21:21)
[2021-08-08] MEDS: ENOXAPARIN 40 MG/0.4 ML (LOVENOX) SYR SC SCH (09:13)
[2021-08-08] MEDS: LACTOBACILLUS ACIDOPHILUS (PROBIOTIC) CAPSULE PO SCH ×4 (09:16→21:21)
[2021-08-08] MEDS ORDERED: RT-ALBUTEROL SULF 2.5 MG/3 ML PRE-MIX VIAL INH PRN (10:00)
--- NOTE | 2021-08-08 10:07 | Physical Therapy Evaluation ---
PT Evaluation-General Medical Diagnosis Admission Date Aug 08, 2021 at 03:35 Medical Diagnosis: Sepsis, UTI Onset Date: Aug 08, 2021 Therapy Diagnosis Therapy Diagnosis: weakness, debility Height/Weight Height (Feet): 5 Height (Inches): 1.00 Weight (Pounds): 127 Weight (Ounces): 1.0 Precautions Precautions/Isolations: Contact Isolation, Fall Prevention Referral Physician: Zabrina Reason for Referral: Evaluation/Treatment Medical History Pertinent Medical History: Atrial Fib, HTN, Neuropathy, Parkinson's, Renal Insufficiency Additional Medical History A Fib CHF Parkinsons Renal Insufficiency Frequent Falls Current History Patient presented to ER with diarrhea for the past 2 weeks. Reviewed History: Yes Social History Home: Single Level Current Living Status: Spouse Prior Prior Level of Function SCALE: Activities may be completed with or without assistive devices. 5-Ojlqimyuuj-xdemqlm completes the activity by him/herself with no assistance from a helper. 5-Set-up or Clean-up Assistance-helper sets up or cleans up; patient completes activity. [place] assists only prior to or following the activity. 4-Supervision or Touching Assistance-helper provides verbal cues and/or touching/steadying and/or contact guard assistance as patient completes activity. Assistance may be provided throughout the activity or intermittently. 3-Partial/Moderate Assistance-helper does LESS THAN HALF the effort. [place] lifts, holds or supports trunk or limbs, but provides less than half the effort. 2-Substantial/Maximal Assistance-helper does MORE THAN HALF the effort. [place] lifts or holds trunk or limbs and provides more than half the effort. 9-Oprssdvet-htgvfw does ALL the effort. Patient does none of the effort to complete the activity. Or, the assistance of 2 or more helpers is required for the patient to complete the activity. If activity was not attempted, code reason: 7-Patient Refused. 9-Not Applicable-not attempted and the patient did not perform the activity before the current illness, exacerbation or injury. 10-Not Attempted due to Environmental Limitations-(lack of equipment, weather restraints, etc.). 88-Not Attempted due to Medical Conditions or Safety Concerns. Bed Mobility: 4 Transfers (B,C,W/C): 4 Gait: 4 Indoor Mobility (Ambulation): Needed Some Help Prior Devices Use: Walker PT Evaluation-Current Subjective Patient presented in bed and reported that she had a BM and needs to get cleaned up. Objective Patient Orientation: Person ROM/Strength ROM Lower Extremities WFL Strength Lower Extremities 3+/5 bilaterally grossly Integumentary/Posture Bowel Incontinence: Yes Bladder Incontinence: Kong Cath Neuromuscular (Tone, Coordination, Reflexes) grossly intact Sensory Vision: Functional Hearing: Hearing Aid/Aides Transfers Roll Left to Right (QC): 4 Lying to Sitting/Side of Bed(Q: 3 Sit to Stand (QC): 3 Toilet Transfer (QC): 3 Patient performed rolling with CGA but required min assist for all other transfers Gait Does the Patient Walk?: Yes Mode of Locomotion: Walk Anticipated Mode of Locomotion: Walk Walk 10 feet (QC): 88 Walk 50 ft with 2 Turns(QC): 88 Walk 150 ft (QC): 88 Gait Assistive Device: FWW Balance Sitting Static: Normal Sitting Dynamic: Normal Standing Static: Normal Standing Dynamic: Fair Assessment/Needs Patient performed bed mobility to help nursing staff clean her up after a incontinence of BM. Patient performed stand pivot transfer with min assist to the commode. Patient returned to bed with stand pivot transfer also. Patient did not perform any other activities due to fatigue and patient medical status. 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 Installer Goals PT Skilled Nursing Goals Time Frame: Aug 20, 2021 Roll Left & Right (QC): 4 Sit to Lying (QC): 4 Lying-Sitting on Side/Bed(QC): 4 Sit to Stand (QC): 4 Chair/Ggx-ie-Ctvzu Xfer(QC): 4 Toilet Transfer (QC): 4 Does the Patient Walk: Yes Walk 10 feet (QC): 4 Walk 50ft with 2 Turns (QC): 4 Walk 150 ft (QC): 4 PT Plan Problem List Problem List: Activity Tolerance, Functional Strength, Safety, Balance, Gait, Transfer, Bed Mobility, ROM Treatment/Plan Treatment Plan: Continue Plan of Care Treatment Plan: Bed Mobility, Education, Functional Activity Jose, Functional Strength, Gait, Safety, Therapeutic Exercise, Transfers Treatment Duration: Aug 20, 2021 Frequency: 6 times per week Estimated Hrs Per Day: .25 hour per day Time/GCodes Time In: 829 Time Out: 845 Total Billed Treatment Time: 16 Total Billed Treatment 1 Visit EVMod 16 min SARIAH VALLADARES PT Aug 08, 2021 10:07
[2021-08-08] MEDS ORDERED: LOPERAMIDE 2 MG (IMODIUM) TABLET PO PRN (10:45)
[2021-08-08] MEDS ORDERED: SIMETHICONE 80 MG (MYLICON) CHEW PO PRN (10:45)
[2021-08-08] MEDS: CHOLESTYRAMINE 4 GM (QUESTRAN LITE, PREVALITE) PKT PO SCH ×3 (11:25→21:22)
[2021-08-08] MEDS ORDERED: PITA1TAB PO (11:35)
--- NOTE | 2021-08-08 12:08 | History & Physical-Hospitalist ---
ADAN CHAMBERLAIN 08/08/21 1208: History of Present Illness HPI/Chief Complaint CC: Zehra is a 71yo F that presented to the ER this morning with her . Her said that she was having diarrhea that had lasted 2 weeks. Her also reported that she had gotten progressively weaker and was unable to stand up on her own. She has a history of recurrent C. diff infection and has been admitted several times for treatment. She was treated with antibiotics 3-4 weeks ago. WBC 20.6, CRP 2.61, UA positive for nitrites. SIRS criteria was met with leukocytosis and tachycardia. Stool sample was taken to check for C. diff toxins. Patient was admitted for sepsis due to UTI and infectious diarrhea. HPI: PMH includes Parkinsons, CHF, atrial fibrillation, high cholesterol, hypertension, polycystic kidney disease, GERD, degenerative disc disease, diabetes, parathyroid disease, anxiety, and depression. No history of smoking, drinking, or illicit substance abuse. Patient reports feeling worn out but denies being in any pain. Denies abdominal pain or tenderness. She has just been sleeping since she was admitted. Source: patient, EMS notes reviewed Exam Limitations: no limitations Date Seen 08/08/21 Time Seen by a Provider: 10:15 Attending Physician Chaya Gerber DO [facility] Referring Physician Date of Admission Aug 08, 2021 at 03:35 Home Medications & Allergies Home Medications Reviewed patient Home Medication Reconciliation performed by pharmacy medication reconciliations sterile technician and/or nursing. Patients Allergies have been reviewed. Allergies Allergies Coded Allergies codeine (Unverified Allergy, Unknown, 02/12/17) morphine (Verified Allergy, Unknown, NAUSEA, 02/12/17) Past Ptwvdpt-Bdxhcd-Zoimby Hx Patient Social History Marrital Status: Living Status: Lives with Employed/Student: retired Tobacco Use?: No Smoking Status: Never a Smoker Use of E-Cig and/or Vaping dev: No Substance use?: No Alcohol Use?: No Pt feels they are or have been: No Immunizations Up To Date Date of Influenza Vaccine: Apr 07, 2021 First/Initial COVID19 Vaccinat: 08/08 Second COVID19 Vaccination Lg: 09/05 Tetanus Booster (TDap): Less Than 5 Years Hepatitis A: No Hepatitis B: No PED Vaccines UTD: No Date of Pneumonia Vaccine: Jul 30, 2020 Seasonal Allergies Seasonal Allergies: Yes Current Status status: No status: No Advance Directives: Yes Advance Directive Location: Scanned into EMR Communicates: Signs Primary Language: Ukrainian Preferred Spoken Language: Ukrainian Is interpretation needed?: No Sensory deficits: Vision impairment, Hearing impairment Implanted or Applied Medical D: Other Past Medical History Surgeries: Appendectomy, Cardiac, Dialysis, Ear Surgery, Eye Surgery, Hys terectomy, Kidney Transplant, Nephrectomy, Oophorectomy, Orthopedic, Renal, Tonsillectomy, Valve Replacement, Vascular Surgery Pneumonia Currently Using CPAP: No Currently Using BIPAP: No Atrial Fibrillation, High Cholesterol, Hypertension, Irregular Heartbeat, Valvular Heart Disease Parkinson's Disease 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, Menopausal Sexually Transmitted Disease: No HIV/AIDS: No Kidney Infection, Renal Failure, Dialysis, UTI-Chronic, Polycystic Kidney Disease Gastroesophageal Reflux, Chronic Diarrhea, Polyps, C-Diff, Irritable Bowel Degenerate Disk Disease, Arthritis, Chronic Back Pain Parathyroid Disease, Diabetes, Non-Insulin dep Cataract, Glaucoma Hearing Impairment: Hard of Hearing, Hearing Aide Left Kidney Did You Recieve Any Treatments: Yes What Type of Treatment Did You: Surgical Intervention Anxiety, Depression Blood Disorders: No Adverse Reaction/Blood Tranf: No (HAS HAD BLOOD WITH NO REACTION) Past medical history 1. Aortic stenosis 2. Polycystic kidney disease 3. Depression 4. Hypertension 5. Hyperlipidemia 6. Paroxysmal atrial fibrillation 7. Diastolic dysfunction 8. 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 Gastroparesis Past surgical history 1. Tonsillectomy 2. Appendectomy 3. Hysterectomy 4. Right nephrectomy and transplant nephrectomy left 5. Aortic valve replacement with bilateral pulmonary vein ablation and staple amputation of the left atrial appendage Family Medical History Alzheimer's disease 19 MOTHER (later in life) Dementia 19 MOTHER No Pertinent Family Hx PAST SURGICAL HISTORY: -LEFT EYE REMOVED/ARTIFICIAL EYE DUE TO UVEITIS -RIGHT COCHLEAR IMPLANT -DIALYSIS SHUNT LEFT ARM--DIALYSIS X 4 YEARS -MULTIPLE REVISIONS OF DIALYSIS AV GRAFT -PERITONEAL DIALYSIS SHUNT -BILATERAL NEPHRECTOMY WITH RENAL TRANSPLANT-IN RLQ OF ABDOMEN--6 YEARS AGO--FOR POLYCYSTIC KIDNEY DISEASE -CARDIAC ABLATION -AORTIC VALVE REPLACEMENT WITH PIG VALVE FOR AORTIC STENOSIS -TONSILLECTOMY -APPENDECTOMY -HYSTERECTOMY/ LATER BSO -CARDIAC CATH 2010--NON-OBSTRUCTIVE DISEASE, NO INTERVENTION -BILATERAL PULMONARY VEIN ABLATION WITH STAPLE AMPTUATION OF LEFT ATRIAL APPENDAGE AT SAME TIME AORTIC VALVE REPLACEMENT -EGD/COLONOSCOPIES/POLYPECTOMIES -EXCISION OF LEFT HIP HEMATOMA 01/2017 [facility] [place]. Review of Systems Constitutional: No chills, No dizziness, No fever; weakness EENTM: no symptoms reported Respiratory: No cough, No dyspnea on exertion, No short of breath Cardiovascular: No chest pain, No palpitations Gastrointestinal: No abdominal pain; diarrhea Genitourinary: No dysuria, No frequency, No hematuria : No Musculoskeletal: no symptoms reported Skin: no symptoms reported Psychiatric/Neurological: Denies Headache Physical Exam Physical Exam Vital Signs Vital Signs - First Documented 08/08/21 08/08/21 08/08/21 08/08/21 08/08/21 00:20 03:36 04:42 06:14 09:46 Temp 36.8 Pulse 85 Resp 22 B/P (MAP) 139/73 (95) Pulse Ox 97 O2 Delivery Room Air O2 Flow Rate 0.00 FiO2 21 Capillary Refill : Less Than 3 Seconds Height, Weight, BMI Height: 5'1.00" Weight: 127lbs. 1.0oz. 57.844105wm; 26.05 BMI Method:Stated General Appearance: No Apparent Distress, WD/WN Eyes: Bilateral Eye Normal Inspection HEENT: PERRL/EOMI Neck: Full Range of Motion, Normal Inspection, Non Tender, Supple Respiratory: Chest Non Tender, Lungs Clear, Normal Breath Sounds, No Accessory Muscle Use, No Respiratory Distress Cardiovascular: Regular Rate, Rhythm, No Edema, No Gallop, No JVD, No Murmur, Normal Peripheral Pulses Gastrointestinal: Normal Bowel Sounds, No Organomegaly, No Pulsatile Mass, Non Tender, Soft Back: Normal Inspection Extremity: Normal Capillary Refill, Normal Inspection, Normal Range of Motion, Non Tender, No Pedal Edema Neurologic/Psychiatric: Alert, Oriented x3, Normal Mood/Affect Skin: Normal Color, Warm/Dry Comments Patient was laying supine in bed asleep at the beginning of the interview. She continued to lay down in the bed during the interview. Results Results/Procedures Labs Laboratory Tests 08/08/21 00:40 08/08/21 05:56 Patient resulted labs reviewed. Assessment/Plan Admission Diagnosis Sepsis due to UTI Admission Status: Inpatient Order (span 2 midnights) Reason for Inpatient Admission: Sepsis due to UTI Assessment and Plan Assessment: Sepsis Generalized weakness Diarrhea History of C. diff infection UTI Debility Diabetes type II Parkinsons Kidney transplant recipient Hypertension GERD Hyperlipidemia DVT prophylaxis Plan: Sepsis - condition is stable - continue to monitor BP and labs - WBC has already decreased to 17 Generalized weakness - patient most likely weak from dehydration, patient is being given IV lactated ringers Diarrhea - results from stool culture are pending - most likely due from C. diff so patient was starting on 125mg Vancomycin 4x a day UTI - patient started on IM ceftriaxone Debility - patient will need to regain strength before starting to work with PT/OT Diabetes type II - insulin aspart started on a sliding scale - blood glucose needs to be monitored - start patient on a diabetic diet Parkinsons - home meds restarted Hypertension - home meds withheld due to concern for sepsis GERD - start patient on pantoprazole Hyperlipidemia - started on atorvastatin DVT prophylaxis - start enoxaparin Diagnosis/Problems Diagnosis/Problems (1) Parkinsons disease Status: Chronic (2) History of Clostridioides difficile infection Status: Chronic (3) Generalized weakness Status: Chronic (4) Debility Status: Chronic (5) Kidney transplant recipient Status: Acute (6) Diabetes mellitus type 2 with complications Status: Chronic (7) Hyperlipidemia Status: Chronic (8) GERD (gastroesophageal reflux disease) Status: Chronic (9) Hypertension Status: Chronic (10) Urinary tract infection Status: Acute (11) DVT prophylaxis Status: Acute (12) Sepsis Status: Acute CHAYA GERBER 08/09/21 0529: History of Present Illness HPI/Chief Complaint CC: UTI with diarrhea HPI: 71 yr old WF known to me from multiple hospital stays who presented with complaints of UTI and severe diarrhea. She does have a history of C. Diff so Vancomycin was placed on 125 BID until the C. Diff came back and the final is pending but it does appear to be C. Diff colitis. PT and OT will be ordered. Pt was placed on gentle IV fluids, IV antibiotics Rocephin and Vancomycin will be changed to QID. Source: patient, EMS notes reviewed Exam Limitations: no limitations Past Mjcbcvq-Dbowga-Npyzbj Hx Patient Social History Marrital Status: Employed/Student: retired Smoking Status: Never a Smoker Past Medical History High Cholesterol, Hypertension Kidney Infection, Bladder Infection Family Medical History Alzheimer's disease 19 MOTHER (later in life) Dementia 19 MOTHER Review of Systems Constitutional: see HPI EENTM: no symptoms reported Respiratory: no symptoms reported Cardiovascular: no symptoms reported Gastrointestinal: diarrhea Physical Exam Physical Exam General Appearance: No Apparent Distress, Chronically ill Respiratory: Lungs Clear, Normal Breath Sounds Cardiovascular: Regular Rate, Rhythm Neurologic/Psychiatric: Alert, Oriented x3, No Motor/Sensory Deficits, Depressed Affect Assessment/Plan Admission Diagnosis (1) UTI (urinary tract infection) with sepsis Status: Acute (2) Clostridium difficile infection Status: Acute (3) Anxiety Status: Chronic (4) Multiple falls Status: Chronic (5) Parkinsons disease Status: Chronic (6) Generalized weakness Status: Chronic (7) GERD (gastroesophageal reflux disease) Status: Chronic (8) Irritable bowel syndrome Status: Chronic (9) Hearing impaired Status: Chronic (10) Diabetes mellitus type 2 with complications Status: Chronic (11) Kidney transplant recipient Vancomycin 4 times daily Rocephin Supportive care Admission Status: Inpatient Order (span 2 midnights) Reason for Inpatient Admission: Sepsis Supervisory-Addendum Brief Verification & Attestation Participated in pt care: history, MDM, physical Personally performed: exam, history, MDM, supervision of care Care discussed with: Medical Student Procedures: n/a Results interpretation: Verified all documentation Verification and Attestation of Medical Student E/M Service A medical student performed and documented this service in my presence. I reviewed and verified all information documented by the medical student and made modifications to such information, when appropriate. I personally performed the physical exam and medical decision making. Chaya Gerber, Aug 09, 2021,05:27 ADAN CHAMBERLAIN Aug 08, 2021 12:08 CHAYA GERBER DO Aug 09, 2021 05:29
[2021-08-08] MEDS: VANCOMYCIN 125 MG CAPSULE PO SCH ×3 (13:41→21:21)
--- NOTE | 2021-08-08 14:25 | Occupational Therapy Eval ---
OT Evaluation-General/PLF Medical Diagnosis Admission Date Aug 08, 2021 at 03:35 Medical Diagnosis: Sepsis, UTI Onset Date: Aug 08, 2021 Therapy Diagnosis Therapy Diagnosis: reduced adl status Height/Weight Height (Feet): 5 Height (Inches): 1.00 Weight (Pounds): 127 Weight (Ounces): 1.0 Precautions Precautions/Isolations: Contact Isolation (pending c-diff), Fall Prevention Referral Physician: Zabrina Referral Reason: Evaluation/Treatment Medical History Pertinent Medical History: Atrial Fib, HTN, Neuropathy, Parkinson's, Renal Insufficiency Current History Patient presented to ER with diarrhea for the past 2 weeks. Found to be septic with UTI. Pt reports she lives with her spouse in a single story home. She was indep with adls. She and her spouse receive meals on wheels and have a bilingual customer service 1x/week. She uses an upright walker at baseline. Reviewed History: Yes Social History Home: Single Level Current Living Status: Spouse ADL-Prior Level of Function SCALE: Activities may be completed with or without assistive devices. 3-Ootmxftqpi-jgrihkg completes the activity by him/herself with no assistance from a helper. 5-Set-up or Clean-up Assistance-helper sets up or cleans up; patient completes activity. [place] assists only prior to or following the activity. 4-Supervision or Touching Assistance-helper provides verbal cues and/or touching/steadying and/or contact guard assistance as patient completes activity. Assistance may be provided throughout the activity or intermittently. 3-Partial/Moderate Assistance-helper does LESS THAN HALF the effort. [place] lifts, holds or supports trunk or limbs, but provides less than half the effort. 2-Substantial/Maximal Assistance-helper does MORE THAN HALF the effort. [place] lifts or holds trunk or limbs and provides more than half the effort. 4-Eljkneaxz-nlskxk does ALL the effort. Patient does none of the effort to complete the activity. Or, the assistance of 2 or more helpers is required for the patient to complete the activity. If activity was not attempted, code reason: 7-Patient Refused. 9-Not Applicable-not attempted and the patient did not perform the activity before the current illness, exacerbation or injury. 10-Not Attempted due to Environmental Limitations-(lack of equipment, weather restraints, etc.). 88-Not Attempted due to Medical Conditions or Safety Concerns. Self Care: Independent Functional Cognition: Needed Some Help DME/Equipment: Grab Bars, Tub/Shower (Pt reports she no longer needs assist to step over tub) Drive Self: No OT Current Status Subjective Denies pain, reports feeling slightly better Appearance Pt left sitting in recliner, all needs within reach. Mental Status/Objective Patient Orientation: Person, Place, Situation Attachments: Kong Catheter, IV Current Hand Dominance: Left Upper Extremity ROM WNL Upper Extremity Strength 3+/5 grossly ADL-Treatment Lower Body Dressing (QC): 3 (per clinical judgment) On/Off Footwear (QC): 4 Toileting Hygiene (QC): 3 Pt reclined in bed at therapy arrival. Able to sit EOB with CGA. Slightly unsteady when performing cross over method to don socks, but no significant LOB. Sit<>stand: min A. Pt ambulated ~5 feet to chair with use of walker and min a. Diarrhea notable upon transfer. Assist for valerie care with min a for standing balance. With prolong standing, shakiness exhibited secondary to fatigue and weakness. At this time, pt will require steadying assist with all functional standing tasks. Education OT Patient Education: Correct positioning, Progress toward Goal/Update tx plan, Purpose of tx/functional activities, Safety issues, Transfer techniques Teaching Recipient: Patient Teaching Methods: Discussion Response to Teaching: Verbalize Understanding, Return Demonstration, Reinforcement Needed OT Long-Term Goals Global Product Manager Goals Time Frame: Aug 17, 2021 Oral Hygiene (QC): 5 Toileting Hygiene (QC): 4 Upper Body Dressing (QC): 4 Lower Body Dressing (QC): 4 On/Off Footwear (QC): 5 1=Demonstrate adherence to instructed precautions during ADL tasks. 2=Patient will verbalize/demonstrate understanding of assistive devices/modifications for ADL. 3=Patient will improve strength/tolerance for activity to enable patient to perform ADL's. OT Education/Plan Problem List/Assessment Assessment: Decreased Activ Tolerance, Decreased UE Strength, Impaired Funct Balance, Impaired Self-Care Skills Discharge Recommendations Plan/Recommendations: Continue POC Therapy Discharge Recommendati: Post Acute OT (ongoing assessment, HH pending progress) Treatment Plan/Plan of Care Treatment,Training & Education: Yes Patient would benefit from OT for education, treatment and training to promote independence in ADL's, mobility, safety and/or upper extremity function for ADL's. Plan of Care: ADL Retraining, Functional Mobility, Group Exercise/Act as Ind, UE Funct Exercise/Act Treatment Duration: Aug 17, 2021 Frequency: 3 times per week (3-5x/week) Estimated Hrs Per Day: .25 hour per day Agreement: Yes Rehab Potential: Fair Time/GCodes Start Time: 13:40 Stop Time: 13:55 Total Time Billed (hr/min): 15 Billed Treatment Time 1 visit Xuan Muñoz OT Aug 08, 2021 14:25
[2021-08-08] MEDS ORDERED: NS (IVPB) 50 ML ONE (21:10)
[2021-08-08] MEDS: AtorvaSTATin TABLET 10 MG TABLET PO SCH (21:20)
[2021-08-08] MEDS: DICYCLOMINE 10 MG (BENTYL) CAP PO SCH (21:20)
[2021-08-08] MEDS: [UNRECOGNIZED DRUG - REMARK] PO SCH (21:23)
[2021-08-08] MEDS: TACROLIMUS 1 MG (PROGRAF) CAP NON-FORM PO SCH (21:25)
[2021-08-08] MEDS: MIRTAZAPINE 7.5 MG PO SCH (21:26)
[2021-08-08] MEDS: QUEtiapine 25 MG (SEROquel) TAB IMMEDIATE RELEASE PO SCH (21:27)
[2021-08-08] MEDS: [UNRECOGNIZED DRUG - REMARK] PO SCH (21:29)
[2021-08-08] MEDS: cefTRIAXone 1 GM PRE-MIX 1 GM/50 ML BAG IV SCH (21:49)
[2021-08-08] MEDS ORDERED: cefTRIAXone 1 GM PRE-MIX 1 GM/50 ML BAG IV SCH (22:00)
[2021-08-08] MEDS: clonazePAM 0.5 MG (KlonoPIN) TAB PO PRN (22:24)
[2021-08-09 03:05] VITALS: BP 149/84
[2021-08-09 06:06] LABS: BASOPHILS % (AUTO) 0 % (0-10); EOSINOPHILS # (AUTO) 0.1 10^3/uL (0.0-0.3); EOSINOPHILS % (AUTO) 1 % (0-10); HEMATOCRIT 34 % (35-52); HEMOGLOBIN 11.5 g/dL (11.5-16.0); LYMPHOCYTES # (AUTO) 1.3 10^3/uL (1.0-4.0); LYMPHOCYTES % (AUTO) 20 % (12-44); MEAN CORPUSCULAR HEMOGLOBIN 29 pg (25-34); MEAN CORPUSCULAR HGB CONC 34 g/dL (32-36); MEAN CORPUSCULAR VOLUME 87 fL (80-99); MEAN PLATELET VOLUME 10.4 fL (9.0-12.2); MONOCYTES # (AUTO) 0.5 10^3/uL (0.0-1.0); MONOCYTES % (AUTO) 7 % (0-12); NEUTROPHILS # (AUTO) 4.6 10^3/uL (1.8-7.8); NEUTROPHILS % (AUTO) 70 % (42-75); PLATELET COUNT 169 10^3/uL (130-400); WHITE BLOOD COUNT 6.5 10^3/uL (4.3-11.0)
[2021-08-09 06:17] LABS: ALBUMIN 3.4 GM/DL (3.2-4.5); POTASSIUM 3.3 MMOL/L (3.6-5.0)
[2021-08-09 06:18] LABS: CALCIUM 8.8 MG/DL (8.5-10.1)
[2021-08-09 06:20] LABS: TOTAL PROTEIN 5.9 GM/DL (6.4-8.2)
[2021-08-09 06:21] LABS: BILIRUBIN,TOTAL 0.5 MG/DL (0.1-1.0)
[2021-08-09 06:23] LABS: CREATININE SERUM 0.63 MG/DL (0.60-1.30)
[2021-08-09] MEDS: LACTATED RINGERS 1,000 ML IV SCH ×2 (06:25→09:27)
[2021-08-09 08:16] VITALS: BP 130/72
[2021-08-09] MEDS: ENOXAPARIN 40 MG/0.4 ML (LOVENOX) SYR SC SCH (09:17)
[2021-08-09] MEDS: VANCOMYCIN 125 MG CAPSULE PO SCH ×4 (09:18→20:38)
[2021-08-09] MEDS: DORZOLAMIDE 2% 10 ML BTL (TRUSOPT) OD SCH ×2 (09:18→20:39)
[2021-08-09] MEDS: LACTOBACILLUS ACIDOPHILUS (PROBIOTIC) CAPSULE PO SCH ×4 (09:18→20:38)
[2021-08-09] MEDS: CHOLESTYRAMINE 4 GM (QUESTRAN LITE, PREVALITE) PKT PO SCH ×3 (09:18→20:41)
[2021-08-09] MEDS: MULTIVIT W/MINERALS TAB (THERAGRAN M) PO SCH (09:18)
[2021-08-09] MEDS: ASCORBIC ACID (VIT C) 500 MG TABLET PO SCH (09:18)
[2021-08-09] MEDS: ASPIRIN E.C. 81 MG (ECOTRIN) TAB PO SCH (09:18)
[2021-08-09] MEDS: DICYCLOMINE 10 MG (BENTYL) CAP PO SCH ×2 (09:19→20:38)
[2021-08-09] MEDS: buPROPion 75 MG (WELLBUTRIN) TAB PO SCH (09:19)
[2021-08-09] MEDS: [UNRECOGNIZED DRUG - REMARK] PO SCH ×2 (09:19→20:41)
[2021-08-09] MEDS: [UNRECOGNIZED DRUG - REMARK] PO SCH (09:20)
[2021-08-09] MEDS: GABAPENTIN 600 MG (NEURONTIN) TAB PO SCH ×3 (09:22→20:42)
[2021-08-09] MEDS: ARTIFICAL TEARS 0.4 ML UNIT DOSE (REFRESH PLUS) OD SCH ×2 (09:24→20:38)
[2021-08-09] MEDS: TACROLIMUS 1 MG (PROGRAF) CAP NON-FORM PO SCH ×2 (09:24→20:42)
[2021-08-09] MEDS: DOCUSATE SODIUM 100 MG (COLACE) CAP PO SCH ×2 (09:25→20:38)
[2021-08-09] MEDS: SENNOSIDES 8.6 MG (SENOKOT) TAB PO SCH ×2 (09:25→20:39)
--- NOTE | 2021-08-09 09:25 | Physical Therapy Daily Note ---
PT Daily Note-Current Subjective Patient presents laying in bed and reports that she is feeling better today. Patient agrees to transfer to the chair. Mental Status Patient Orientation: Person, Place, Situation Attachments: Kong Catheter, IV Transfers SCALE: Activities may be completed with or without assistive devices. 3-Hnzxqiqaur-ufjnchp completes the activity by him/herself with no assistance from a helper. 5-Set-up or Clean-up Assistance-helper sets up or cleans up; patient completes activity. [place] assists only prior to or following the activity. 4-Supervision or Touching Assistance-helper provides verbal cues and/or touchi ng/steadying and/or contact guard assistance as patient completes activity. Assistance may be provided throughout the activity or intermittently. 3-Partial/Moderate Assistance-helper does LESS THAN HALF the effort. [place] lifts, holds or supports trunk or limbs, but provides less than half the effort. 2-Substantial/Maximal Assistance-helper does MORE THAN HALF the effort. [place] lifts or holds trunk or limbs and provides more than half the effort. 7-Jcizaczmb-cydmzx does ALL the effort. Patient does none of the effort to complete the activity. Or, the assistance of 2 or more helpers is required for the patient to complete the activity. If activity was not attempted, code reason: 7-Patient Refused. 9-Not Applicable-not attempted and the patient did not perform the activity before the current illness, exacerbation or injury. 10-Not Attempted due to Environmental Limitations-(lack of equipment, weather restraints, etc.). 88-Not Attempted due to Medical Conditions or Safety Concerns. Lying to Sitting/Side of Bed(Q: 6 Sit to Stand (QC): 4 Chair/Cub-pv-Wuknf Xfer(QC): 4 Patient is independent for bed mobility and CGA for sit to stand and transferring to the chair. Gait Training Does the Patient Walk?: Yes Distance: 10' Walk 10 feet (QC): 4 Gait Assistive Device: FWW Patient ambulated from EOB to the chair and required CGA and FWW. Assessment Patient performed bed mobility and ambulated to the bed. Patient required CGA for transfers and ambulation and was independent with bed mobility. Patient is left post tx in her chair with nurse call, phone, and all needs met. PT Short Term Goals Short Term Goals Time Frame: Aug 09, 2021 PT Usp Goals Usp Goals PT Head Loader Goals Time Frame: Aug 20, 2021 Roll Left & Right (QC): 4 Sit to Lying (QC): 4 Lying-Sitting on Side/Bed(QC): 4 Sit to Stand (QC): 4 Chair/Xqw-ph-Zjocy Xfer(QC): 4 Toilet Transfer (QC): 4 Does the Patient Walk: Yes Walk 10 feet (QC): 4 Walk 50ft with 2 Turns (QC): 4 Walk 150 ft (QC): 4 PT Plan Problem List Problem List: Activity Tolerance, Functional Strength, Safety, Balance, Gait, Transfer, Bed Mobility, ROM Treatment/Plan Treatment Plan: Continue Plan of Care Treatment Plan: Bed Mobility, Education, Functional Activity Jose, Functional Strength, Gait, Safety, Therapeutic Exercise, Transfers Treatment Duration: Aug 20, 2021 Frequency: 6 times per week Estimated Hrs Per Day: .25 hour per day Time/GCodes Time In: 859 Time Out: 910 Total Billed Treatment Time: 11 Total Billed Treatment 1 Visit FA 11 min SARIAH VALLADARES PT Aug 09, 2021 09:25
[2021-08-09] MEDS: [UNRECOGNIZED DRUG - REMARK] PO SCH ×2 (09:26→20:43)
[2021-08-09] MEDS ORDERED: KCL 20 MEQ TAB (K-DUR) PO ONE (10:15)
[2021-08-09 11:26] VITALS: BP 162/74
--- NOTE | 2021-08-09 12:56 | Progress Note - Hospitalist ---
ADAN CHAMBERLAIN 08/09/21 1256: Subjective HPI/CC On Admission Date Seen by Provider: Aug 09, 2021 Time Seen by Provider: 10:00 CC: UTI with diarrhea HPI: 71 yr old WF known to me from multiple hospital stays who presented with complaints of UTI and severe diarrhea. She does have a history of C. Diff so Vancomycin was placed on 125 BID until the C. Diff came back and the final is pending but it does appear to be C. Diff colitis. PT and OT will be ordered. Pt was placed on gentle IV fluids, IV antibiotics Rocephin and Vancomycin will be changed to QID. Subjective/Events-last exam Zehra reports feeling much better today. She has not had a bowel movement since 21:30. Reports that the bowel movements are mostly liquid still. She has had some abdominal cramping this morning but says that it has resolved. She worked with OT yesterday and says it went very well. The patient says she feels like she is back at her baseline before she became sick 2 weeks ago. Stool sample was positive for A and B C. diff toxins. Review of Systems General: No Chills, No Fatigue HEENT: No Head Aches, No Visual Changes Pulmonary: No Dyspnea, No Cough Cardiovascular: No: Chest Pain, Palpitations Gastrointestinal: Diarrhea (Patient reports stools still being liquid); No: Nausea, Vomiting Genitourinary: No Dysuria, No Frequency Neurological: No: Weakness Focused Exam Lactate Level 08/08/21 05:56: Lactic Acid Level 1.23 Time of Focused Exam: 02:10 Objective Exam Vital Signs Vital Signs Date Time Temp Pulse Resp B/P (MAP) Pulse Ox O2 Delivery O2 Flow Rate FiO2 08/09/21 11:26 36.1 68 18 162/74 (103) 99 Room Air 08/08/21 09:46 0.00 08/08/21 06:14 21 Capillary Refill : Less Than 3 Seconds General Appearance: No Apparent Distress, WD/WN HEENT: PERRL/EOMI Neck: Full Range of Motion, Normal Inspection, Non Tender, Supple Respiratory: Chest Non Tender, Lungs Clear, Normal Breath Sounds, No Accessory Muscle Use, No Respiratory Distress Cardiovascular: Regular Rate, Rhythm, No Edema, No Gallop, No JVD, No Murmur, Normal Peripheral Pulses Gastrointestinal: Normal Bowel Sounds, No Organomegaly, No Pulsatile Mass, Non Tender, Soft Extremity: Normal Capillary Refill, Normal Inspection, Normal Range of Motion, Non Tender, No Pedal Edema Neurologic/Psychiatric: Alert, Oriented x3 Skin: Normal Color, Warm/Dry Results/Procedures Lab Laboratory Tests 08/09/21 05:27 Patient resulted labs reviewed. Assessment/Plan Assessment and Plan Assess & Plan/Chief Complaint Assessment: Sepsis Generalized weakness Diarrhea History of C. diff infection UTI Debility Diabetes type II Parkinsons Kidney transplant recipient Hypertension GERD Hyperlipidemia DVT prophylaxis Plan: Sepsis - condition is stable - continue to monitor BP and labs - WBC has decreased to 6.5 Generalized weakness - resolved - IV fluids discontinued - Catheter removed Diarrhea - results from stool culture showed A & B toxins - continue 125mg Vancomycin 4x a day - will do a long taper with vancomycin UTI - continue IM ceftriaxone, finish on 08/11/21 Debility - patient will continue to work with PT/OT Diabetes type II - insulin aspart on a sliding scale - blood glucose needs to be monitored - patient on a diabetic diet Parkinsons - home meds restarted Hypertension - home meds withheld due to concern for sepsis GERD - start patient on pantoprazole Hyperlipidemia - started on atorvastatin DVT prophylaxis - start enoxaparin Diagnosis/Problems Diagnosis/Problems (1) Parkinsons disease Status: Chronic (2) History of Clostridioides difficile infection Status: Chronic (3) Generalized weakness Status: Chronic (4) Debility Status: Chronic (5) Kidney transplant recipient Status: Acute (6) Diabetes mellitus type 2 with complications Status: Chronic (7) Hyperlipidemia Status: Chronic (8) GERD (gastroesophageal reflux disease) Status: Chronic (9) Hypertension Status: Chronic (10) Urinary tract infection Status: Acute (11) DVT prophylaxis Status: Acute (12) Sepsis Status: Acute JOSEPH DRIVER DO 08/10/21 0544: Subjective Subjective/Events-last exam Pt is doing a lot better Denies any new issues Will discontinue cath and hep lock IV fluid Rocephin still maintained Vancomycin 125 mg QID tolerated well at the bedside Review of Systems General: Fatigue, Malaise Objective Exam General Appearance: No Apparent Distress, WD/WN, Chronically ill Respiratory: Lungs Clear, Normal Breath Sounds Cardiovascular: Regular Rate, Rhythm Neurologic/Psychiatric: Alert, Oriented x3 Assessment/Plan Assessment and Plan Assess & Plan/Chief Complaint Discharge home tomorrow Supervisory-Addendum Brief Verification & Attestation Participated in pt care: history, MDM, physical Personally performed: exam, history, MDM, supervision of care Care discussed with: Medical Student Procedures: n/a Results interpretation: Verified all documentation Verification and Attestation of Medical Student E/M Service A medical student performed and documented this service in my presence. I reviewed and verified all information documented by the medical student and made modifications to such information, when appropriate. I personally performed the physical exam and medical decision making. Joseph Driver, Aug 10, 2021,05:43 ADAN CHAMBERLAIN Aug 09, 2021 12:56 JOSEPH DRIVER DO Aug 10, 2021 05:44
--- NOTE | 2021-08-09 13:41 | Occupational Ther Daily Note ---
OT Current Status-Daily Note Subjective RN reports pt is having significant pain just prior to OT arrival. Per patient report, she denies having any pain. Appearance Pt left supine in bed, all needs within reach. ADL-Treatment Therapy Code Descriptions/Definitions Functional [place] Measure: 0=Not Assessed/NA 4=Minimal Assistance 1=Total Assistance 5=Supervision or Setup 2=Maximal Assistance 6=Modified [place] 3=Moderate Assistance 7=Complete IndependenceSCALE: Activities may be completed with or without assistive devices. 3-Llkxuckdhd-dhbunox completes the activity by him/herself with no assistance from a helper. 5-Set-up or Clean-up Assistance-helper sets up or cleans up; patient completes activity. [place] assists only prior to or following the activity. 4-Supervision or Touching Assistance-helper provides verbal cues and/or to uching/steadying and/or contact guard assistance as patient completes activity. Assistance may be provided throughout the activity or intermittently. 3-Partial/Moderate Assistance-helper does LESS THAN HALF the effort. [place] lifts, holds or supports trunk or limbs, but provides less than half the effort. 2-Substantial/Maximal Assistance-helper does MORE THAN HALF the effort. [place] lifts or holds trunk or limbs and provides more than half the effort. 6-Zpynvtgrv-ctuzqs does ALL the effort. Patient does none of the effort to complete the activity. Or, the assistance of 2 or more helpers is required for the patient to complete the activity. If activity was not attempted, code reason: 7-Patient Refused. 9-Not Applicable-not attempted and the patient did not perform the activity before the current illness, exacerbation or injury. 10-Not Attempted due to Environmental Limitations-(lack of equipment, weather restraints, etc.). 88-Not Attempted due to Medical Conditions or Safety Concerns. Other Treatment Pt reports that she sat in the chair for ~4 hours and had just returned to bed. She requests to defer all OOB/EOB activities secondary to fatigue. Agreeable to UE exercises. OT issued pt red theraband and instructed her on HEP. She reports using a green band at home, yet fatigues easily with red band. OT suggest to continue with red until stronger. Pt able to perform all movements through full range, mod cues for improved technique. 10x1 all planes. Education OT Patient Education: Correct positioning, Energy conservation, Exercise program, Purpose of tx/functional activities Teaching Recipient: Patient Teaching Methods: Demonstration, Discussion Response to Teaching: Verbalize Understanding, Return Demonstration, Reinforcement Needed OT Factory Supervisor Goals Factory Supervisor Goals Time Frame: Aug 17, 2021 Oral Hygiene (QC): 5 Toileting Hygiene (QC): 4 Upper Body Dressing (QC): 4 Lower Body Dressing (QC): 4 On/Off Footwear (QC): 5 1=Demonstrate adherence to instructed precautions during ADL tasks. 2=Patient will verbalize/demonstrate understanding of assistive devices/modifications for ADL. 3=Patient will improve strength/tolerance for activity to enable patient to perform ADL's. OT Education/Plan Problem List/Assessment Assessment: Decreased Activ Tolerance, Decreased UE Strength, Impaired Funct Balance, Impaired Self-Care Skills Discharge Recommendations Plan/Recommendations: Continue POC Treatment Plan/Plan of Care Treatment,Training & Education: Yes Patient would benefit from OT for education, treatment and training to promote independence in ADL's, mobility, safety and/or upper extremity function for ADL's. Plan of Care: ADL Retraining, Functional Mobility, Group Exercise/Act as Ind, UE Funct Exercise/Act Treatment Duration: Aug 17, 2021 Frequency: 3 times per week (3-5x/week) Estimated Hrs Per Day: .25 hour per day Agreement: Yes Rehab Potential: Fair Time/GCodes Start Time: 13:20 Stop Time: 13:34 Total Time Billed (hr/min): 14 Billed Treatment Time 1 visit EX Xuan Lanza OT Aug 09, 2021 13:41
[2021-08-09 16:00] VITALS: BP 188/86
[2021-08-09 20:32] VITALS: BP 179/74
[2021-08-09] MEDS: AtorvaSTATin TABLET 10 MG TABLET PO SCH (20:38)
[2021-08-09] MEDS: QUEtiapine 25 MG (SEROquel) TAB IMMEDIATE RELEASE PO SCH (20:40)
[2021-08-09] MEDS: clonazePAM 0.5 MG (KlonoPIN) TAB PO PRN (20:43)
[2021-08-09] MEDS: MIRTAZAPINE 7.5 MG PO SCH (20:44)
[2021-08-09] MEDS: cefTRIAXone 1 GM PRE-MIX 1 GM/50 ML BAG IV SCH (23:01)
[2021-08-10 00:35] VITALS: BP 162/78
[2021-08-10 03:44] VITALS: BP 145/76
[2021-08-10 05:48] LABS: BASOPHILS % (AUTO) 0 % (0-10); EOSINOPHILS # (AUTO) 0.1 10^3/uL (0.0-0.3); EOSINOPHILS % (AUTO) 2 % (0-10); HEMATOCRIT 35 % (35-52); HEMOGLOBIN 11.8 g/dL (11.5-16.0); LYMPHOCYTES # (AUTO) 1.2 10^3/uL (1.0-4.0); LYMPHOCYTES % (AUTO) 17 % (12-44); MEAN CORPUSCULAR HEMOGLOBIN 30 pg (25-34); MEAN CORPUSCULAR HGB CONC 34 g/dL (32-36); MEAN CORPUSCULAR VOLUME 86 fL (80-99); MEAN PLATELET VOLUME 10.4 fL (9.0-12.2); MONOCYTES # (AUTO) 0.5 10^3/uL (0.0-1.0); MONOCYTES % (AUTO) 7 % (0-12); NEUTROPHILS % (AUTO) 73 % (42-75); PLATELET COUNT 184 10^3/uL (130-400); WHITE BLOOD COUNT 6.8 10^3/uL (4.3-11.0)
[2021-08-10 06:00] LABS: ALBUMIN 3.5 GM/DL (3.2-4.5); POTASSIUM 3.7 MMOL/L (3.6-5.0)
[2021-08-10 06:02] LABS: TOTAL PROTEIN 6.1 GM/DL (6.4-8.2)
[2021-08-10 06:04] LABS: BILIRUBIN,TOTAL 0.5 MG/DL (0.1-1.0)
[2021-08-10 06:06] LABS: CREATININE SERUM 0.64 MG/DL (0.60-1.30)
[2021-08-10 08:00] VITALS: BP 158/83
[2021-08-10] MEDS: DICYCLOMINE 10 MG (BENTYL) CAP PO SCH (10:21)
[2021-08-10] MEDS: MULTIVIT W/MINERALS TAB (THERAGRAN M) PO SCH (10:21)
[2021-08-10] MEDS: ASPIRIN E.C. 81 MG (ECOTRIN) TAB PO SCH (10:21)
[2021-08-10] MEDS: LACTOBACILLUS ACIDOPHILUS (PROBIOTIC) CAPSULE PO SCH ×2 (10:21→13:46)
[2021-08-10] MEDS: VANCOMYCIN 125 MG CAPSULE PO SCH ×2 (10:21→13:45)
[2021-08-10] MEDS: ENOXAPARIN 40 MG/0.4 ML (LOVENOX) SYR SC SCH (10:22)
[2021-08-10] MEDS: ASCORBIC ACID (VIT C) 500 MG TABLET PO SCH (10:22)
[2021-08-10] MEDS: GABAPENTIN 600 MG (NEURONTIN) TAB PO SCH ×2 (10:23→13:45)
[2021-08-10] MEDS: buPROPion 75 MG (WELLBUTRIN) TAB PO SCH (10:23)
[2021-08-10] MEDS: CHOLESTYRAMINE 4 GM (QUESTRAN LITE, PREVALITE) PKT PO SCH ×2 (10:23→13:45)
[2021-08-10] MEDS: DORZOLAMIDE 2% 10 ML BTL (TRUSOPT) OD SCH (10:24)
[2021-08-10] MEDS: ARTIFICAL TEARS 0.4 ML UNIT DOSE (REFRESH PLUS) OD SCH (10:24)
[2021-08-10] MEDS: [UNRECOGNIZED DRUG - REMARK] PO SCH (10:24)
[2021-08-10] MEDS: [UNRECOGNIZED DRUG - REMARK] PO SCH (10:26)
[2021-08-10] MEDS: TACROLIMUS 1 MG (PROGRAF) CAP NON-FORM PO SCH (10:27)
[2021-08-10] MEDS: [UNRECOGNIZED DRUG - REMARK] PO SCH (10:27)
[2021-08-10] MEDS: DOCUSATE SODIUM 100 MG (COLACE) CAP PO SCH (11:06)
[2021-08-10] MEDS: SENNOSIDES 8.6 MG (SENOKOT) TAB PO SCH (11:07)
--- NOTE | 2021-08-10 11:26 | Progress Note ---
ADAN CHAMBERLAIN 08/10/21 1126: Progress Note Zehra is a 71yo F with a PMH including Parkinsons, CHF, atrial fibrillation, high cholesterol, hypertension, polycystic kidney disease, GERD, degenerative disc disease, diabetes, parathyroid disease, anxiety, and depression. She presented to the ER on 08/08/21 with her . Her said that she was having diarrhea that had lasted 2 weeks. Her also reported that she had gotten progressively weaker and was unable to stand up on her own. She has a history of recurrent C. diff infection and has been admitted several times for treatment. She was treated with antibiotics 3-4 weeks ago. WBC 20.6, CRP 2.61, UA positive for nitrites. SIRS criteria was met with leukocytosis and t achycardia. Stool sample was taken to check for C. diff toxins and was positive. Urine culture was done which grew Klebsiella pneumoniae. Patient was admitted for sepsis due to UTI and infectious C. diff infection. Vancomycin was started on 08/08/21 to treat C. diff and IM ceftriaxone was started 08/08/21 to treat the UTI. Patient was weak and exhausted after being admitted and slept for most of the day. The next day she worked with PT/OT and was able to complete tasks that she was doing at her baseline. The patient says she is feeling much better and is wanting to be discharged. She is no longer having frequent diarrhea. Her BP was elevated during her hospital stay but due to the patient having orthostatic hypotension, there was no attempt to lower her BP with medications. Patient is being discharged home with her today. She is being sent home with Cefdinir 300mg 2x a day for 3 days for her UTI, a tapering dose of vancomycin 150mg 4x day for 11 days then 3x day for a week, 2x a day for a week, and 1x a day for a week. JOSEPH DRIVER DO 08/11/21 0549: Supervisory-Addendum Brief Verification & Attestation Participated in pt care: history, MDM, physical Personally performed: exam, history, MDM, supervision of care Care discussed with: Medical Student Procedures: n/a Results interpretation: Verified all documentation Verification and Attestation of Medical Student E/M Service A medical student performed and documented this service in my presence. I reviewed and verified all information documented by the medical student and made modifications to such information, when appropriate. I personally performed the physical exam and medical decision making. Joseph Driver, Aug 11, 2021,05:49 ADAN CHAMBERLAIN Aug 10, 2021 11:26 JOSEPH DRIVER DO Aug 11, 2021 05:49
[2021-08-10] MEDS ORDERED: CHOL4PAC3 PO (12:17)
[2021-08-10] MEDS ORDERED: CEFD300C3 PO (12:17)
[2021-08-10] MEDS ORDERED: VANC125C5 PO (12:17)
--- NOTE | 2021-08-10 12:18 | Discharge Summary ---
Discharge Summary Hospital Course Was the Problem List Reviewed?: Yes Problems/Dx: (1) Parkinsons disease Status: Chronic (2) History of Clostridioides difficile infection Status: Chronic (3) Generalized weakness Status: Chronic (4) Debility Status: Chronic (5) Kidney transplant recipient Status: Acute (6) Diabetes mellitus type 2 with complications Status: Chronic (7) Hyperlipidemia Status: Chronic (8) GERD (gastroesophageal reflux disease) Status: Chronic (9) Hypertension Status: Chronic (10) Urinary tract infection Status: Acute (11) DVT prophylaxis Status: Acute (12) Sepsis Status: Acute Hospital Course Date of Admission: Aug 08, 2021 at 03:35 Admission Diagnosis : Family Physician/Provider: Jori Guerra DO Date of Discharge: 08/10/21 Discharge Diagnosis: UTI, C. difficile colitis, Parkinson's, renal transplant recipient Hospital Course: Zehra is a 71yo F with a PMH including Parkinsons, CHF, atrial fibrillation, high cholesterol, hypertension, polycystic kidney disease, GERD, degenerative disc disease, diabetes, parathyroid disease, anxiety, and depression. She presented to the ER on 08/08/21 with her . Her said that she was having diarrhea that had lasted 2 weeks. Her also reported that she had gotten progressively weaker and was unable to stand up on her own. She has a history of recurrent C. diff infection and has been admitted several times for treatment. She was treated with antibiotics 3-4 weeks ago. WBC 20.6, CRP 2.61, UA positive for nitrites. SIRS criteria was met with leukocytosis and tachycardia. Stool sample was taken to check for C. diff toxins and was positive . Urine culture was done which grew Klebsiella pneumoniae. Patient was admitted for sepsis due to UTI and infectious C. diff infection. Vancomycin was started on 08/08/21 to treat C. diff and IM ceftriaxone was started 08/08/21 to treat the UTI. Patient was weak and exhausted after being admitted and slept for most of the day. The next day she worked with PT/OT and was able to complete tasks that she was doing at her baseline. The patient says she is feeling much better and is wanting to be discharged. She is no longer having frequent diarrhea. Her BP was elevated during her hospital stay but due to the patient having orthostatic hypotension, there was no attempt to lower her BP with medications. Patient is being discharged home with her today. She is being sent home with Cefdinir 300mg 2x a day for 3 days for her UTI, a tapering dose of vancomycin 150mg 4x day for 11 days then 3x day for a week, 2x a day for a week, and 1x a day for a week. ADAN CHAMBERLAIN Aug 10, 2021 11:26 Labs and Pending Lab Test: Laboratory Tests 08/10/21 05:18: White Blood Count 6.8, Red Blood Count 4.00, Hemoglobin 11.8, Hematocrit 35, Mean Corpuscular Volume 86, Mean Corpuscular Hemoglobin 30, Mean Corpuscular Hemoglobin Concent 34, Red Cell Distribution Width 13.1, Platelet Count 184, Mean Platelet Volume 10.4, Immature Granulocyte % (Auto) 1, Neutrophils (%) (Auto) 73, Lymphocytes (%) (Auto) 17, Monocytes (%) (Auto) 7, Eosinophils (%) (Auto) 2, Basophils (%) (Auto) 0, Neutrophils # (Auto) 5.0, Lymphocytes # (Auto) 1.2, Monocytes # (Auto) 0.5, Eosinophils # (Auto) 0.1, Basophils # (Auto) 0.0, Immature Granulocyte # (Auto) 0.0, Sodium Level 139, Potassium Level 3.7, Chloride Level 111H, Carbon Dioxide Level 18L, Anion Gap 10, Blood Urea Nitrogen 6L, Creatinine 0.64, Estimat Glomerular Filtration Rate 94, BUN/Creatinine Ratio 9, Glucose Level 85, Calcium Level 9.0, Corrected Calcium 9.4, Total Bilirubin 0.5, Aspartate Amino Transf (AST/SGOT) 13, Alanine Aminotransferase (ALT/SGPT) 8, Alkaline Phosphatase 54, Total Protein 6.1L, Albumin 3.5 Microbiology 08/08/21 Blood Culture - Preliminary, Resulted No growth 08/08/21 Urine Culture - Final, Complete Klebsiella pneumoniae 08/08/21 Fecal Leukocyte Stain - Final, Resulted 08/08/21 C. difficile DNA Amplification - Final, Resulted 08/08/21 C. difficile GDH Antigen & Toxins - Final, Resulted 08/08/21 Stool Culture - Preliminary, Resulted Home Meds Active Cefdinir 300 Mg Capsule 300 Mg PO BID Prevalite Packet (Cholestyramine/Aspartame) 4 Gm Powd.pack 4 Gm PO TID Vancomycin HCl 125 Mg Capsule 125 Mg PO QID 1 PO QID x 7 days then 1 PO TID x 7 days then 1 PO BID x 7 days then 1 PO daily x 14 days Reported Livalo (Pitavastatin Calcium) 1 Mg Tablet 1 Mg PO DAILY Multivitamin 1 Each Tablet 1 Each PO DAILY Bupropion HCl 75 Mg Tablet 75 Mg PO DAILY Quetiapine Fumarate 25 Mg Tablet 25 Mg PO 2100 Cranberry (Cranberry Fruit) 450 Mg Tablet 450 Mg PO BID Nephro-Rodrick Tablet (Folic Acid/Vitamin B Comp W-C) 0.8 Mg Tablet 0.8 Mg PO DAILY Mirtazapine 7.5 Mg Tablet 7.5 Mg PO DAILY Lotronex (Alosetron HCl) 0.5 Mg Tab 0.5 Mg PO BID Restasis (Cyclosporine) 1 Each Droperette 1 Each OD BID Dicyclomine HCl 20 Mg Tablet 5 Mg PO BID TAKES 1/2 OF A 20MG TAB Gabapentin 600 Mg Tablet 600 Mg PO TID Mycophenolic Acid (Mycophenolate Sodium) 360 Mg Tablet.dr 360 Mg PO BID Flonase Allergy Relief (Fluticasone Propionate) 9.9 Ml [place].susp 2 [place] NS DAILY PRN Clonazepam 0.5 Mg Tablet 0.25 Mg PO 1200,2100 PRN TAKES 1/2 OF A 0.5MG TAB Azopt (Brinzolamide) 10 Ml Btl 1 Drop OD DAILY Vitamin C (Ascorbate Calcium) 500 Mg Tablet 500 Mg PO DAILY Adult Low Dose Aspirin EC (Aspirin) 81 Mg Tablet.dr 81 Mg PO DAILY Prograf (Tacrolimus) 1 Mg Capsule 1 Mg PO BID Probiotic (L.acidoph & Paracasei,B.lactis) 1 Each Capsule 1 Cap PO DAILY Imodium Multi-Symptom Rel Cplt (Loperamide HCl/Simethicone) 1 Each Tablet 1 Tab PO DAILY PRN Assessment/Pt Instructions PCP in 1 week Discharge Planning: <30 minutes discharge planning Discharge Instructions Discharge Diet: No Restrictions Discharge Physical Examination Vital Signs Vital Signs Date Time Temp Pulse Resp B/P (MAP) Pulse Ox O2 Delivery O2 Flow Rate FiO2 08/10/21 08:00 36.8 75 20 158/83 (108) 99 Room Air 08/08/21 09:46 0.00 08/08/21 06:14 21 General Appearance: No Apparent Distress, WD/WN, Chronically ill Allergies: Coded Allergies: codeine (Unverified Allergy, Unknown, 02/12/17) morphine (Verified Allergy, Unknown, NAUSEA, 02/12/17) Discharge Summary Date of Admission Aug 08, 2021 at 03:35 Date of Discharge Discharge Date: Aug 10, 2021 Admission Diagnosis (1) UTI (urinary tract infection) with sepsis Status: Acute (2) Clostridium difficile infection Status: Acute (3) Anxiety Status: Chronic (4) Multiple falls Status: Chronic (5) Parkinsons disease Status: Chronic (6) Generalized weakness Status: Chronic (7) GERD (gastroesophageal reflux disease) Status: Chronic (8) Irritable bowel syndrome Status: Chronic (9) Hearing impaired Status: Chronic (10) Diabetes mellitus type 2 with complications Status: Chronic (11) Kidney transplant recipient Vancomycin 4 times daily Rocephin Supportive care Discharge Diagnosis Discharge home tomorrow (1) Parkinsons disease Status: Chronic (2) History of Clostridioides difficile infection Status: Chronic (3) Generalized weakness Status: Chronic (4) Debility Status: Chronic (5) Kidney transplant recipient Status: Acute (6) Diabetes mellitus type 2 with complications Status: Chronic (7) Hyperlipidemia Status: Chronic (8) GERD (gastroesophageal reflux disease) Status: Chronic (9) Hypertension Status: Chronic (10) Urinary tract infection Status: Acute (11) DVT prophylaxis Status: Acute (12) Sepsis Status: Acute JOSEPH DRIVER DO Aug 10, 2021 12:18
[2021-08-10 16:43] VITALS: BP 158/83
[2021-08-10] MEDS ORDERED: cefTRIAXone 1 GM PRE-MIX 1 GM/50 ML BAG IV SCH (21:00)
[2021-08-12] MEDS ORDERED: CLON0.5T4 PO (10:02)
== END 2021-08-10 16:44 | disposition home or self-care (01) | DRG 872 ==
LOC: EDUNIT# 00:03 → ER 00:08 → 4TH 03:35
PROVIDERS: ADMIT Internal Medicine; ATTEND Internal Medicine
PROC: 8E0ZXY6 Isolation (ICD-10-PCS; principal; 2021-08-08)
DX: A41.59 Other Gram-negative sepsis (principal); N39.0 Urinary tract infection, site not specified; A04.72 Enterocolitis due to Clostridium difficile, not specified as recurrent; Z94.0 Kidney transplant status; I50.30 Unspecified diastolic (congestive) heart failure; N25.81 Secondary hyperparathyroidism of renal origin; A41.4 Sepsis due to anaerobes; Z66 Do not resuscitate; Z20.822 Contact with and (suspected) exposure to COVID-19; E11.43 Type 2 diabetes mellitus with diabetic autonomic (poly)neuropathy; K31.84 Gastroparesis; E21.5 Disorder of parathyroid gland, unspecified; G20 Parkinson's disease; I48.0 Paroxysmal atrial fibrillation; F41.9 Anxiety disorder, unspecified; F32.A Depression, unspecified; Z91.81 History of falling; E78.00 Pure hypercholesterolemia, unspecified; E78.5 Hyperlipidemia, unspecified; I11.0 Hypertensive heart disease with heart failure; K21.9 Gastro-esophageal reflux disease without esophagitis; H54.7 Unspecified visual loss; H91.92 Unspecified hearing loss, left ear; I95.1 Orthostatic hypotension; Z96.21 Cochlear implant status; Z95.2 Presence of prosthetic heart valve; Z90.5 Acquired absence of kidney; Z79.82 Long term (current) use of aspirin; Z88.5 Allergy status to narcotic agent
CPT/HCPCS: 36415; 71045; 72170; 74176; 80048; 80053; 81000; 82150; 82947; 83605; 83690; 83735; 84145; 85007; 85025; 85027; 85652; 86141; 87015; 87040; 87045; 87046; 87077; 87088; 87186; 87324; 87449; 87493; 87636; 87899; 89055; 93041

== ENCOUNTER 2021-08-10 19:26 | Emergency (ER) | payer MEDICARE ==
[~2021-08-10 19:26] MED LIST changes: +CHOL4PAC3 PO
--- NOTE | 2021-08-10 20:01 | ED General ---
General Chief Complaint: General Problems/Pain Stated Complaint: UNABLE TO STAND Source of Information: Patient Exam Limitations: No Limitations History of Present Illness Date Seen by Provider: Aug 10, 2021 Time Seen by Provider: 19:59 Initial Comments Patient is a 71-year-old female presents ED bilateral hip pain. Patient fell twice this evening. Patient was discharged from the hospital today. Patient with a history of Parkinson's, generalized weakness, debility, type 2 diabetes. Patient states her right foot has been spasming, cramping since yesterday. She fell once when getting out of car on the concrete in the garage. Denies any her head, loss conscious or back pain. She fell again in the bathroom. She is complaining of right foot pain. No vomiting, diarrhea, norris pain, chest pain, fever. Allergies and Home Medications Allergies Coded Allergies: codeine (Unverified Allergy, Unknown, 02/12/17) morphine (Verified Allergy, Unknown, NAUSEA, 02/12/17) Patient Home Medication List Home Medication List Reviewed: Yes Alosetron HCl (Lotronex) 0.5 Mg Tab, 0.5 MG PO BID, (Reported) Entered as Reported by: MARISEL BARRY on 07/31/20 0530 Ascorbate Calcium (Vitamin C) 500 Mg Tablet, 500 MG PO DAILY, (Reported) Entered as Reported by: ANUSHKA LUNA on 08/29/16 0947 Aspirin (Adult Low Dose Aspirin EC) 81 Mg Tablet.dr, 81 MG PO DAILY, (Reported) Entered as Reported by: SANTIAGO VILLARREAL on 08/28/16 1842 Brinzolamide (Azopt) 10 Ml Btl, 1 DROP OD DAILY, (Reported) Entered as Reported by: ANUSHKA LUNA on 08/29/16 0947 Bupropion HCl (Bupropion HCl) 75 Mg Tablet, 75 MG PO DAILY, (Reported) Entered as Reported by: MALDONADO LAN on 11/18/20 1131 Cefdinir (Cefdinir) 300 Mg Capsule, 300 MG PO BID Prescribed by: JOSEPH DRIVER on 08/10/21 1217 Cholestyramine/Aspartame (Prevalite Packet) 4 Gm Powd.pack, 4 GM PO TID Prescribed by: JOSEPH DRIVER on 08/10/21 1217 Clonazepam (Clonazepam) 0.5 Mg Tablet, 0.25 MG PO 1200,2100 PRN for ANXIETY, (Reported) Entered as Reported by: PABOL VELASCO on 02/12/17 1132 Cranberry Fruit (Cranberry) 450 Mg Tablet, 450 MG PO BID, (Reported) Entered as Reported by: MALDONADO LAN on 09/02/20 1517 Cyclosporine (Restasis) 1 Each Droperette, 1 EACH OD BID, (Reported) Entered as Reported by: MALDONADO LAN on 03/23/20 1521 Dicyclomine HCl (Dicyclomine HCl) 20 Mg Tablet, 5 MG PO BID, (Reported) Entered as Reported by: MALDONADO LAN on 03/23/20 1518 Fluticasone Propionate (Flonase Allergy Relief) 9.9 Ml Orange.susp, 2 SPRAY NS DAILY PRN for CONGESTION, (Reported) Entered as Reported by: MALDONADO LAN on 03/23/20 1518 Folic Acid/Vitamin B Comp W-C (Nephro-Rodrick Tablet) 0.8 Mg Tablet, 0.8 MG PO DAILY, (Reported) Entered as Reported by: MALDONADO LAN on 08/02/20 1401 Gabapentin (Gabapentin) 600 Mg Tablet, 600 MG PO TID, (Reported) Entered as Reported by: MALDONADO LAN on 03/23/20 1518 L.acidoph & Paracasei,B.lactis (Probiotic) 1 Each Capsule, 1 CAP PO DAILY, (Reported) Entered as Reported by: HUSSEIN LOPEZ on 04/02/15 0327 Loperamide HCl/Simethicone (Imodium Multi-Symptom Rel Cplt) 1 Each Tablet, 1 TAB PO DAILY PRN for DIARRHEA, (Reported) Entered as Reported by: HUSSEIN LOPEZ on 04/02/15 0324 Mirtazapine (Mirtazapine) 7.5 Mg Tablet, 7.5 MG PO DAILY, (Reported) Entered as Reported by: MARISEL BARRY on 07/31/20 0530 Multivitamin (Multivitamin) 1 Each Tablet, 1 EACH PO DAILY, (Reported) Entered as Reported by: MALDONADO LAN on 11/18/20 1131 Mycophenolate Sodium (Mycophenolic Acid) 360 Mg Tablet.dr, 360 MG PO BID, (Reported) Entered as Reported by: MALDONADO LAN on 03/23/20 1518 Pitavastatin Calcium (Livalo) 1 Mg Tablet, 1 MG PO DAILY, (Reported) Entered as Reported by: SERG FRIED on 08/08/21 1135 Quetiapine Fumarate (Quetiapine Fumarate) 25 Mg Tablet, 25 MG PO 2100, (Reported) Entered as Reported by: MALDONADO LAN on 11/18/20 1131 Tacrolimus (Prograf) 1 Mg Capsule, 1 MG PO BID, (Reported) Entered as Reported by: HUSSEIN LOPEZ on 04/02/15 0327 Vancomycin HCl (Vancomycin HCl) 125 Mg Capsule, 125 MG PO QID Prescribed by: JOSEPH DRIVER on 08/10/21 1217 Discontinued Medications Amlodipine Besylate (Amlodipine Besylate) 2.5 Mg Tablet, 2.5 MG PO DAILY, (Reported) Discontinued Reason: No Longer Taking Entered as Reported by: CASE MARINELLI on 08/01/20 1015 Cefdinir (Cefdinir) 300 Mg Capsule, 300 MG PO BID Prescribed by: JOSEPH DRIVER on 11/19/20 1225 Famotidine (Acid Educational Guidance Counselor (FAMOTIDINE)) 20 Mg Tablet, 20 MG PO DAILY, (Reported) Discontinued Reason: No Longer Taking Entered as Reported by: PABLO VELASCO on 02/12/17 1132 Pitavastatin Calcium (Livalo) 2 Mg Tablet, 2 MG PO DAILY, (Reported) Discontinued Reason: Prescription changed Entered as Reported by: MALDONADO LAN on 09/02/20 1556 Vancomycin HCl (Vancomycin HCl) 125 Mg Capsule, 125 MG PO BID Prescribed by: JOSEPH DRIVER on 11/19/20 1225 Review of Systems Review of Systems Constitutional: No chills, No diaphoresis, No dizziness, No malaise, No weakness EENTM: No mouth pain, No throat pain, No throat swelling Respiratory: No cough, No dyspnea on exertion, No short of breath Cardiovascular: No chest pain, No edema Gastrointestinal: No abdominal pain, No diarrhea, No nausea, No vomiting Genitourinary: No decreased output Musculoskeletal: No back pain; joint pain, muscle pain Skin: No change in color, No change in hair/nails Psychiatric/Neurological: Denies Anxiety, Denies Depressed All Other Systems Reviewed Negative Unless Noted: Yes Past Ykufrgd-Ebsify-Sgvosa Hx Immunizations Up To Date Tetanus Booster (TDap): Unknown PED Vaccines UTD: No First/Initial COVID19 Vaccinat: 08/08 Second COVID19 Vaccination Lg: 09/05 Third COVID19 Vaccination Date: 03/08 Seasonal Allergies Seasonal Allergies: Yes Past Medical History Surgery/Hospitalization HX: Atificial heart valve Surgeries: Yes (COCHLEAR IMPLANT, CARDIAC ABLATION, AORTIC VALVE, KIDNEY TRANSPLANT) Appendectomy, Cardiac, Dialysis, Ear Surgery, Eye Surgery, Hysterectomy, Kidney Transplant, Nephrectomy, Oophorectomy, Orthopedic, Renal, Tonsillectomy, Valve Replacement, Vascular Surgery Respiratory: Yes Pneumonia Currently Using CPAP: No Currently Using BIPAP: No Cardiac: Yes ( CHF; AORTIC PIG VALVE FOR AORTIC STENOSIS ; PAROXYSMAL ATRIAL FIB. ) High Cholesterol, Hypertension Neurological: Yes Parkinson's Disease Reproductive Disorders: No MANAGER UTILIZATION REVIEW History: Hysterectomy, Menopausal Sexually Transmitted Disease: No HIV/AIDS: No Genitourinary: Yes (BILATERAL NEPHRECTOMY AND RENAL TRANSPLANT, dialysis prior to transplant) Kidney Infection, Bladder Infection Gastrointestinal: Yes (H.PYLORI; GASTROPARESIS) Gastroesophageal Reflux, Chronic Diarrhea, Polyps, C-Diff, Irritable Bowel Musculoskeletal: Yes (FREQUENT FALLS/USES WALKER;CHRONIC GENERALIZED WEAKNESS) Degenerate Disk Disease, Arthritis, Chronic Back Pain Endocrine: Yes Parathyroid Disease, Diabetes, Non-Insulin dep HEENT: Yes (LEFT EYE REMOVED DUE TO UVEITIS; RIGHT COCHLEAR IMPLANT) Cataract, Glaucoma Hearing Impairment: Hard of Hearing, Hearing Aide Left Cancer: Yes Kidney Did You Recieve Any Treatments: Yes What Type of Treatment Did You: Surgical Intervention Psychosocial: Yes Anxiety, Depression Integumentary: No Blood Disorders: No Adverse Reaction/Blood Tranf: No (HAS HAD BLOOD WITH NO REACTION) Family Medical History Alzheimer's disease 19 MOTHER (later in life) Dementia 19 MOTHER No Pertinent Family Hx PAST SURGICAL HISTORY: -LEFT EYE REMOVED/ARTIFICIAL EYE DUE TO UVEITIS -RIGHT COCHLEAR IMPLANT -DIALYSIS SHUNT LEFT ARM--DIALYSIS X 4 YEARS -MULTIPLE REVISIONS OF DIALYSIS AV GRAFT -PERITONEAL DIALYSIS SHUNT -BILATERAL NEPHRECTOMY WITH RENAL TRANSPLANT-IN RLQ OF ABDOMEN--6 YEARS AGO--FOR POLYCYSTIC KIDNEY DISEASE -CARDIAC ABLATION -AORTIC VALVE REPLACEMENT WITH PIG VALVE FOR AORTIC STENOSIS -TONSILLECTOMY -APPENDECTOMY -HYSTERECTOMY/ LATER BSO -CARDIAC CATH 2010--NON-OBSTRUCTIVE DISEASE, NO INTERVENTION -BILATERAL PULMONARY VEIN ABLATION WITH STAPLE AMPTUATION OF LEFT ATRIAL APPENDAGE AT SAME TIME AORTIC VALVE REPLACEMENT -EGD/COLONOSCOPIES/POLYPECTOMIES -EXCISION OF LEFT HIP HEMATOMA 01/2017 [facility] [place]. Physical Exam Vital Signs Vital Signs - First Documented 08/10/21 19:51 Temp 37.2 Pulse 110 Resp 16 B/P (MAP) 146/82 (103) Pulse Ox 97 O2 Delivery Room Air Capillary Refill : Height, Weight, BMI Height: 5'1.00" Weight: 127lbs. 1.0oz. [id number]; 26.05 BMI Method:Stated General Appearance: No Apparent Distress, WD/WN Eyes: Bilateral Eye Normal Inspection, Bilateral Eye PERRL, Bilateral Eye EOMI HEENT: PERRL/EOMI, TMs Normal, Normal ENT Inspection, Pharynx Normal Neck: Full Range of Motion, Non Tender, Supple Respiratory: Chest Non Tender, Lungs Clear, Normal Breath Sounds, No Accessory Muscle Use, No Respiratory Distress Cardiovascular: Regular Rate, Rhythm, No Edema, No Gallop, No JVD Gastrointestinal: Normal Bowel Sounds, No Organomegaly, No Pulsatile Mass, Non Tender, Soft Back: Normal Inspection, No CVA Tenderness, No Vertebral Tenderness Extremity: Other (Pain on palpation right plantar foot. No swelling, erythema or ecchymosis. Normal active range of motion of the right ankle. Bilateral pelvic tenderness. No shortening, rotation) Neurologic/Psychiatric: Alert, Oriented x3, Normal Mood/Affect Skin: Normal Color, Warm/Dry Progress/Results/Core Measures Suspected Sepsis SIRS Temperature: Pulse: Respiratory Rate: Blood Pressure / Mean: Results/Orders My Orders Orders - CAROLINA MONTILLA Pelvis/Ted Hips 5> Views (08/10/21 19:57) Vital Signs/I&O 08/10/21 08/10/21 08/10/21 19:51 19:51 21:02 Temp 37.2 37.2 Pulse 110 86 Resp 16 16 B/P (MAP) 146/82 (103) 126/67 Pulse Ox 97 99 O2 Delivery Room Air Room Air Room Air Capillary Refill : Departure Communication (Admissions) GCS 15. Alert and orient x3. She has no thoracic, cervical or lumbar midline tenderness. Denies hit her head or loss of consciousness. At her normal baseline according to at bedside Impression Primary Impression: Pelvic pain Additional Impressions: Frequent falls Debility Foot pain Generalized weakness Disposition: XFER SHT-TRM HOSP Condition: Stable Transfer Transfer Reason: Diversion Time Spoke to Accepting Phy: 20:46 Transfer Progress Notes Patient was discussed with Dr. Cruz who recommends transfer to [facility] secondary to diversion. Do not currently have any open beds at this time. Due to her debility, frequent falls, unstable gait, continued generalized pain patient will be admitted for further evaluation. Would likely benefit with [facility]. History of [facility]p in the past according to family. Lab work was not drawn as she was just discharged from our facility today. Patient will be transferred by POV. Concern for frequent falls unable to take care of herself at home. He Has been having difficulty taking care of patient at home. Patient does not have any cervical, thoracic or lumbar midline tenderness. Bilateral hip tenderness but is able to stand and bear weight. She reports cramping to her right foot. She has no swelling or pain to the calf. She denies of any fall of the foot. Unclear etiology. She states this pain has been going on since yesterday. Patient will be transferred at this time. Medically stable. Transfer Time: 20:46 Transfer Facility: [facility] Method of Transfer: Private Vehicle Departure-Patient Inst. Referrals: [facility] (PCP) Primary Care Physician MALDONADO GARRETT DO (Family) Primary Care Physician CAROLINA MONTILLA Aug 10, 2021 20:01
--- NOTE | 2021-08-10 20:37 | Diagnostic Imaging Report ---
INDICATION: Bilateral hip pain. FINDINGS: There are no findings of hip dislocation. The femoral heads maintain normal morphology without collapse. There are no plain film findings of a proximal femoral fracture. There is no diastasis of the pubic symphysis or of the SI joints. The pelvic ring appears intact. There is mild bilateral hip osteoarthritic joint space narrowing. IMPRESSION: Mild bilateral hip osteoarthritic joint space narrowing. There are no findings of dislocation, acute fracture or pelvic diastasis. Dictated by: Dictated on workstation # [id number]
[2021-08-10 21:02] VITALS: BP 126/67
[2021-08-12] MEDS ORDERED: CLON0.5T4 PO (10:02)
== END 2021-08-10 21:04 | disposition short-term general hospital (02) ==
LOC: EDUNIT# 19:26 → ER 19:27
DX: R10.2 Pelvic and perineal pain (principal); R29.6 Repeated falls; R53.81 Other malaise; M79.671 Pain in right foot; R53.1 Weakness
CPT/HCPCS: 73523

== ENCOUNTER 2021-09-25 04:08 | Inpatient (IN) | payer MEDICARE ==
[~2021-09-25] VITALS: Ht 152 cm; Wt 60.2 kg
[2021-09-25] MEDS ORDERED: LACTATED RINGERS 1,000 ML IV ONE (04:30)
[2021-09-25 04:38] LABS: BASOPHILS # (AUTO) 0.1 10^3/uL (0.0-0.1); BASOPHILS % (AUTO) 0 % (0-10); EOSINOPHILS % (AUTO) 0 % (0-10); HEMATOCRIT 39 % (35-52); HEMOGLOBIN 13.4 g/dL (11.5-16.0); LYMPHOCYTES # (AUTO) 1.2 10^3/uL (1.0-4.0); LYMPHOCYTES % (AUTO) 8 % (12-44); MEAN CORPUSCULAR HEMOGLOBIN 30 pg (25-34); MEAN CORPUSCULAR HGB CONC 34 g/dL (32-36); MEAN CORPUSCULAR VOLUME 88 fL (80-99); MONOCYTES # (AUTO) 1.4 10^3/uL (0.0-1.0); MONOCYTES % (AUTO) 9 % (0-12); NEUTROPHILS # (AUTO) 12.9 10^3/uL (1.8-7.8); NEUTROPHILS % (AUTO) 82 % (42-75); PLATELET COUNT 194 10^3/uL (130-400); WHITE BLOOD COUNT 15.6 10^3/uL (4.3-11.0)
[2021-09-25 04:49] LABS: ALBUMIN 4.2 GM/DL (3.2-4.5)
[2021-09-25 04:51] LABS: CALCIUM 9.4 MG/DL (8.5-10.1)
[2021-09-25 04:52] LABS: TOTAL PROTEIN 7.3 GM/DL (6.4-8.2)
[2021-09-25 04:54] LABS: BILIRUBIN,TOTAL 1.8 MG/DL (0.1-1.0)
[2021-09-25 04:56] LABS: CREATININE SERUM 0.99 MG/DL (0.60-1.30)
[2021-09-25 05:16] LABS: ERYTHROCYTE SEDIMENTATION RATE 23 MM/HR (0-30); NEUTROPHILS % (MANUAL) 83 %
[2021-09-25 05:17] LABS: LYMPHOCYTES % (MANUAL) 7 %; MONOCYTES % (MANUAL) 10 %; RBC MORPH NORMAL
--- NOTE | 2021-09-25 05:17 | ED General ---
General Chief Complaint: Abdominal/GI Problems Stated Complaint: C DIFF; UTI Nursing Triage Note: patient complaint of weakness, diarrhea, and possible UTI. patient denies recent use of antibiotics. patient has significiant hx of UTI anc C-Diff Source of Information: Patient (DOES MINIMAL TALKING), Spouse ( DOES NEARLY ALL TALKING FOR PT) History of Present Illness Date Seen by Provider: Sep 25, 2021 Time Seen by Provider: 04:25 Initial Comments PT ARRIVES VIA POV FROM HOME WITH REPORTS THAT HE THINKS SHE HAS C.DIF AND A UTI THIS IS A FREQUENT COMPLAINT FOR PT, AND HAS HAD MULTIPLE VISITS HERE FOR THIS COMPLAINT OVER THE LAST 1 1/2 YEARS. STATES THAT 2-3 DAYS AGO SHE BEGAN HAVING VERY FOUL SMELLING DIARRHEA PT REPORTS SHE HAS HAD > 5 BUT < 10 STOOLS TODAY. NO BLACK/BLOODY/TARRY STOOLS HAS SOME LOWER ABDOMINAL DISCOMFORT + NAUSEA, NO VOMITING DENIES ANY DIFFICULTY URINATING OR PAIN ON URINATION DENIES FEVER HAS ONGOING GENERALIZED WEAKNESS, WORSE FOR THE LAST 2-3 DAYS HAS BEEN EATING AND DRINKING NORMALLY HAS NOT ATTEMPTED TO CONTACT HER PCP FOR THIS PROBLEM PT HAS HAD RENAL TRANSPLANT SEE OLD CHARTS FOR DETAILS PCP: CANDELARIA-YVES, ADRIANNE GARRETT Allergies and Home Medications Allergies Coded Allergies: codeine (Unverified Allergy, Unknown, 02/12/17) morphine (Verified Allergy, Unknown, NAUSEA, 02/12/17) Patient Home Medication List Home Medication List Reviewed: Yes Alosetron HCl (Lotronex) 0.5 Mg Tab, 0.5 MG PO BID, (Reported) Entered as Reported by: MARISEL BARRY on 07/31/20 0530 Ascorbate Calcium (Vitamin C) 500 Mg Tablet, 500 MG PO DAILY, (Reported) Entered as Reported by: ANUSHKA LUNA on 08/29/16 0947 Aspirin (Adult Low Dose Aspirin EC) 81 Mg Tablet.dr, 81 MG PO DAILY, (Reported) Entered as Reported by: SANTIAGO VILLARREAL on 08/28/16 184 Brinzolamide (Azopt) 10 Ml Btl, 1 DROP OD DAILY, (Reported) Entered as Reported by: ANUSHKA LUNA on 08/29/16 0947 Bupropion HCl (Bupropion HCl) 75 Mg Tablet, 75 MG PO DAILY, (Reported) Entered as Reported by: MALDONADO LAN on 11/18/20 1131 Cefdinir (Cefdinir) 300 Mg Capsule, 300 MG PO BID Prescribed by: JOSEPH DRIVER on 08/10/21 1217 Cholestyramine/Aspartame (Prevalite Packet) 4 Gm Powd.pack, 4 GM PO TID Prescribed by: JOSEPH DRIVER on 08/10/21 1217 Clonazepam (Clonazepam) 0.5 Mg Tablet, 0.25 MG PO 1200,2100 PRN for ANXIETY Prescribed by: JOSEPH DRIVER on 08/12/21 1003 Cranberry Fruit (Cranberry) 450 Mg Tablet, 450 MG PO BID, (Reported) Entered as Reported by: MALDONADO LAN on 09/02/20 1517 Cyclosporine (Restasis) 1 Each [place]pe[place], 1 EACH OD BID, (Reported) Entered as Reported by: MALDONADO LAN on 03/23/20 1521 Dicyclomine HCl (Dicyclomine HCl) 20 Mg Tablet, 5 MG PO BID, (Reported) Entered as Reported by: MALDONADO LAN on 03/23/20 1518 Fluticasone Propionate (Flonase Allergy Relief) 9.9 Ml [place].susp, 2 SPRAY NS DAILY PRN for CONGESTION, (Reported) Entered as Reported by: MALDONADO LAN on 03/23/20 1518 Folic Acid/Vitamin B Comp W-C (Nephro-Rodrick Tablet) 0.8 Mg Tablet, 0.8 MG PO DAILY, (Reported) Entered as Reported by: MALDONADO LAN on 08/02/20 1401 Gabapentin (Gabapentin) 600 Mg Tablet, 600 MG PO TID, (Reported) Entered as Reported by: MALDONADO LAN on 03/23/20 1518 L.acidoph & Paracasei,B.lactis (Probiotic) 1 Each Capsule, 1 CAP PO DAILY, (Reported) Entered as Reported by: HUSSEIN LOPEZ on 04/02/15 0327 Loperamide HCl/Simethicone (Imodium Multi-Symptom Rel Cplt) 1 Each Tablet, 1 TAB PO DAILY PRN for DIARRHEA, (Reported) Entered as Reported by: HUSSEIN LOPEZ on 04/02/15 0324 Mirtazapine (Mirtazapine) 7.5 Mg Tablet, 7.5 MG PO DAILY, (Reported) Entered as Reported by: MARISEL BARRY on 07/31/20 0530 Multivitamin (Multivitamin) 1 Each Tablet, 1 EACH PO DAILY, (Reported) Entered as Reported by: MALDONADO LAN on 11/18/20 1131 Mycophenolate Sodium (Mycophenolic Acid) 360 Mg Tablet.dr, 360 MG PO BID, (Reported) Entered as Reported by: MALDONADO LAN on 03/23/20 1518 Pitavastatin Calcium (Livalo) 1 Mg Tablet, 1 MG PO DAILY, (Reported) Entered as Reported by: SERG FRIED on 08/08/21 1135 Quetiapine Fumarate (Quetiapine Fumarate) 25 Mg Tablet, 25 MG PO 2100, (Reported) Entered as Reported by: MALDONADO LAN on 11/18/20 1131 Tacrolimus (Prograf) 1 Mg Capsule, 1 MG PO BID, (Reported) Entered as Reported by: HUSSEIN LOPEZ on 04/02/15 0327 Vancomycin HCl (Vancomycin HCl) 125 Mg Capsule, 125 MG PO QID Prescribed by: JOSEPH DRIVER on 08/10/21 1217 Review of Systems Review of Systems Constitutional: see HPI; No fever; malaise, weakness EENTM: no symptoms reported Respiratory: no symptoms reported Cardiovascular: no symptoms reported Gastrointestinal: see HPI, abdominal pain, diarrhea, nausea; No vomiting Genitourinary: no symptoms reported Musculoskeletal: no symptoms reported Skin: no symptoms reported Psychiatric/Neurological: No Symptoms Reported Hematologic/Lymphatic: No Symptoms Reported Immunological/Allergic: no symptoms reported Past Gquhvrr-Feffbp-Acymer Hx Patient Social History Tobacco Use?: No Use of E-Cig and/or Vaping dev: No Substance use?: No Alcohol Use?: No Immunizations Up To Date Tetanus Booster (TDap): Unknown PED Vaccines UTD: No First/Initial COVID19 Vaccinat: 08/08 Second COVID19 Vaccination Lg: 09/05 Third COVID19 Vaccination Date: 03/08 Seasonal Allergies Seasonal Allergies: Yes Past Medical History Surgery/Hospitalization HX: Atificial heart valve Surgeries: Yes (COCHLEAR IMPLANT, CARDIAC ABLATION, AORTIC VALVE, KIDNEY TRANSPLANT) Appendectomy, Cardiac, Dialysis, Ear Surgery, Eye Surgery, Hysterectomy, Kidney Transplant, Nephrectomy, Oophorectomy, Orthopedic, Renal, Tonsillectomy, Valve Replacement, Vascular Surgery Respiratory: Yes Pneumonia Currently Using CPAP: No Currently Using BIPAP: No Cardiac: Yes ( CHF; AORTIC PIG VALVE FOR AORTIC STENOSIS ; PAROXYSMAL ATRIAL FIB. 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, Menopausal Sexually Transmitted Disease: No HIV/AIDS: No Genitourinary: Yes (BILATERAL NEPHRECTOMY AND RENAL TRANSPLANT, dialysis prior to transplant) Kidney Infection, Bladder Infection, Renal Failure, UTI-Chronic Gastrointestinal: Yes (H.PYLORI; GASTROPARESIS) Gastroesophageal Reflux, Chronic Diarrhea, Polyps, C-Diff, Irritable Bowel Musculoskeletal: Yes (FREQUENT FALLS/USES WALKER;CHRONIC GENERALIZED WEAKNESS) Degenerate Disk Disease, Arthritis, Chronic Back Pain Endocrine: Yes Parathyroid Disease, Diabetes, Non-Insulin dep HEENT: Yes (LEFT EYE REMOVED DUE TO UVEITIS; RIGHT COCHLEAR IMPLANT) Cataract, Glaucoma Hearing Impairment: Hard of Hearing, Hearing Aide Left Cancer: Yes Kidney Did You Recieve Any Treatments: Yes What Type of Treatment Did You: Surgical Intervention Psychosocial: Yes Anxiety, Depression Integumentary: No Blood Disorders: No Adverse Reaction/Blood Tranf: No (HAS HAD BLOOD WITH NO REACTION) Family Medical History Alzheimer's disease 19 MOTHER (later in life) Dementia 19 MOTHER No Pertinent Family Hx PAST SURGICAL HISTORY: -LEFT EYE REMOVED/ARTIFICIAL EYE DUE TO UVEITIS -RIGHT COCHLEAR IMPLANT -DIALYSIS SHUNT LEFT ARM--DIALYSIS X 4 YEARS -MULTIPLE REVISIONS OF DIALYSIS AV GRAFT -PERITONEAL DIALYSIS SHUNT -BILATERAL NEPHRECTOMY WITH RENAL TRANSPLANT-IN RLQ OF ABDOMEN--6 YEARS AGO--FOR POLYCYSTIC KIDNEY DISEASE -CARDIAC ABLATION -AORTIC VALVE REPLACEMENT WITH PIG VALVE FOR AORTIC STENOSIS -TONSILLECTOMY -APPENDECTOMY -HYSTERECTOMY/ LATER BSO -CARDIAC CATH 2010--NON-OBSTRUCTIVE DISEASE, NO INTERVENTION -BILATERAL PULMONARY VEIN ABLATION WITH STAPLE AMPTUATION OF LEFT ATRIAL APPENDAGE AT SAME TIME AORTIC VALVE REPLACEMENT -EGD/COLONOSCOPIES/POLYPECTOMIES -EXCISION OF LEFT HIP HEMATOMA 01/2017 [facility] [place]. Physical Exam Vital Signs Vital Signs - First Documented 09/25/21 04:36 Temp 37.4 Pulse 96 Resp 20 B/P (MAP) 118/49 (72) Pulse Ox 94 O2 Delivery Room Air Capillary Refill : Less Than 3 Seconds Height, Weight, BMI Height: 5'1.00" Weight: 127lbs. 1.0oz. 57.533391ih; 26.05 BMI Method:Stated General Appearance: No Apparent Distress, WD/WN, Other (MILDLY LETHARGIC/GENE RALIZED WEAKNESS ) HEENT: Other (LEFT EYE IS ARTIFICIAL. RIGHT COCHLEAR IMPLANT. ) Neck: Normal Inspection Respiratory: Normal Breath Sounds, No Accessory Muscle Use, No Respiratory Distress Cardiovascular: Regular Rate, Rhythm, No Murmur Gastrointestinal: Normal Bowel Sounds, No Organomegaly, No Pulsatile Mass, Non Tender, Soft, Tenderness (MILD DIFFUSE LOWER ABDOMINAL TENDERNESS. 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 ) Skin: Normal Color, Warm/Dry; No Rash Focused Exam Sepsis Stage: Sepsis Possible Source: Genitouriary Lactate Level 09/25/21 05:40: Lactic Acid Level 5.13*H Time of Focused Exam: 06:00 Respiratory: Normal Breath Sounds, No Accessory Muscle Use, No Respiratory Distress Cardiovascular: Regular Rate, Rhythm, No Murmur Capillary Refill: Less Than 3 Seconds Skin: normal color, warm/dry Lactic Acid Level Laboratory Tests Test 09/25/21 05:40 Lactic Acid Level 5.13 MMOL/L (0.50-2.00) *H Within 3hrs of presentation: Admin fluids, Admin ABX, Blood cultures prior to ABX's, Focus exam, Lactate level Progress/Results/Core Measures Suspected Sepsis SIRS Temperature: Pulse: 96 Respiratory Rate: 20 Laboratory Tests 09/25/21 04:30: White Blood Count 15.6H Blood Pressure 118 /49 Mean: 72 09/25/21 05:40: Lactic Acid Level 5.13*H Laboratory Tests 09/25/21 04:30: Creatinine 0.99, Platelet Count 194, Total Bilirubin 1.8H Results/Orders Lab Results Laboratory Tests Test 09/25/21 04:30 09/25/21 05:40 Range/Units White Blood Count 15.6 H 4.3-11.0 10^3/uL Red Blood Count 4.41 3.80-5.11 10^6/uL Hemoglobin 13.4 11.5-16.0 g/dL Hematocrit 39 35-52 % Mean Corpuscular Volume 88 80-99 fL Mean Corpuscular Hemoglobin 30 25-34 pg Mean Corpuscular Hemoglobin Concent 34 32-36 g/dL Red Cell Distribution Width 13.2 10.0-14.5 % Platelet Count 194 130-400 10^3/uL Mean Platelet Volume 10.0 9.0-12.2 fL Immature Granulocyte % (Auto) 0 % Neutrophils (%) (Auto) 82 H 42-75 % Lymphocytes (%) (Auto) 8 L 12-44 % Monocytes (%) (Auto) 9 0-12 % Eosinophils (%) (Auto) 0 0-10 % Basophils (%) (Auto) 0 0-10 % Neutrophils # (Auto) 12.9 H 1.8-7.8 10^3/uL Lymphocytes # (Auto) 1.2 1.0-4.0 10^3/uL Monocytes # (Auto) 1.4 H 0.0-1.0 10^3/uL Eosinophils # (Auto) 0.0 0.0-0.3 10^3/uL Basophils # (Auto) 0.1 0.0-0.1 10^3/uL Immature Granulocyte # (Auto) 0.1 0.0-0.1 10^3/uL Neutrophils % (Manual) 83 % Lymphocytes % (Manual) 7 % Monocytes % (Manual) 10 % Blood Morphology Comment NORMAL Erythrocyte Sedimentation Rate 23 0-30 MM/HR Sodium Level 134 L 135-145 MMOL/L Potassium Level 4.0 3.6-5.0 MMOL/L Chloride Level 101 98-107 MMOL/L Carbon Dioxide Level 15 L 21-32 MMOL/L Anion Gap 18 H 5-14 MMOL/L Blood Urea Nitrogen 13 7-18 MG/DL Creatinine 0.99 0.60-1.30 MG/DL Estimat Glomerular Filtration Rate 61 BUN/Creatinine Ratio 13 Glucose Level 133 H 70-105 MG/DL Calcium Level 9.4 8.5-10.1 MG/DL Corrected Calcium 9.2 8.5-10.1 MG/DL Total Bilirubin 1.8 H 0.1-1.0 MG/DL Aspartate Amino Transf (AST/SGOT) 13 5-34 U/L Alanine Aminotransferase (ALT/SGPT) 7 0-55 U/L Alkaline Phosphatase 64 40-136 U/L C-Reactive Protein High Sensitivity 14.56 H 0.00-0.50 MG/DL Total Protein 7.3 6.4-8.2 GM/DL Albumin 4.2 3.2-4.5 GM/DL Procalcitonin 0.36 H <0.10 NG/ML Urine Color YELLOW Urine Clarity CLEAR Urine pH 5.5 5-9 Urine Specific [place] 1.025 H 1.016-1.022 Urine Protein NEGATIVE NEGATIVE Urine Glucose (UA) NEGATIVE NEGATIVE Urine Ketones TRACE H NEGATIVE Urine Nitrite POSITIVE H NEGATIVE Urine Bilirubin 1+ H NEGATIVE Urine Urobilinogen 0.2 < = 1.0 MG/DL Urine Leukocyte Esterase 1+ H NEGATIVE Urine RBC (Auto) NEGATIVE NEGATIVE Urine RBC 5-10 H /HPF Urine WBC 10-25 H /HPF Urine Squamous Epithelial Cells NONE /HPF Urine Crystals NONE /LPF Urine Bacteria MODERATE H /HPF Urine Casts NONE /LPF Urine Mucus NEGATIVE /LPF Urine Culture Indicated NO Lactic Acid Level 5.13 *H 0.50-2.00 MMOL/L My Orders Orders - SHIRIN MEHTA DO Ed Iv/Invasive Line Start (09/25/21 04:22) Monitor-Rhythm Ecg Trace Only (09/25/21 04:22) Straight Cath For Spec.-Adult (09/25/21 04:22) Cbc With Automated Diff (09/25/21 04:22) Comprehensive Metabolic Panel (09/25/21 04:22) Hs C Reactive Protein (09/25/21 04:22) Erythrocyte Sedimentation Rate (09/25/21 04:22) Lactic Acid Analyzer (09/25/21 04:22) Procalcitonin (Pct) (09/25/21 04:22) Ua Culture If Indicated (09/25/21 04:22) Stool Culture (09/25/21 04:22) Fecal Wbc (09/25/21 04:22) Ed Iv/Invasive Line Start (09/25/21 04:22) Lactated Ringers (Lr 1000 Ml Iv Solution (09/25/21 04:30) Blood Culture (09/25/21 04:22) Urine Culture (09/25/21 04:22) Chest 1 View, Ap/Pa Only (09/25/21:22) Ed Iv/Invasive Line Start (09/25/21 04:22) Ed Iv/Invasive Line Start (09/25/21 04:22) Vital Signs Adult Sepsis Patie Q15M (09/25/21 04:22) O2 (09/25/21 04:22) Remove Rings In Anticipation O (09/25/21 04:22) C Difficile Ag + Toxin A/B. (09/25/21 04:22) Isolation Central Supply Req (09/25/21 04:22) Manual Differential (09/25/21 04:30) Ceftriaxone 1 Gm Pre-Mix (Rocephin 1 Gm (09/25/21 06:08) Medications Given in ED Current Medications Medications Dose Ordered Sig/Lizzie Route Start Time Stop Time Status Last Admin Dose Admin Lactated Ringer's 1,000 ml @ 0 mls/hr Q0M ONCE IV 09/25/21 04:30 09/25/21 04:31 DC 09/25/21 04:48 0 MLS/HR Vital Signs/I&O 09/25/21 04:36 Temp 37.4 Pulse 96 Resp 20 B/P (MAP) 118/49 (72) Pulse Ox 94 O2 Delivery Room Air Capillary Refill : Less Than 3 Seconds Blood Pressure Mean: 72 Progress Note : Progress Note SEPSIS PROTOCOL INITIATED GIVEN IV FLUIDS UNEVENTFUL ER STAY NO STOOLS IN ER DECLINES NAUSEA MEDICATION Departure Communication (Admissions) 621--SPOKE WITH DR. DRIVER, HOSPITALIST FOR [facility] [place]. ACCEPTS PT FOR ADMIT. SHE WILL DO ADMIT ORDERS. Impression Primary Impression: Sepsis Additional Impressions: UTI (urinary tract infection) Hx of Clostridium difficile infection S/P kidney transplant Generalized weakness Parkinsons disease Disposition: ADMITTED INPATIENT Condition: Stable Admissions Decision to Admit Reason: Admit from ER (General) Decision to Admit/Date: Sep 25, 2021 Time/Decision to Admit Time: 06:25 Departure-Patient Inst. Referrals: [facility] (PCP) Primary Care Physician MALDONADO GARRETT DO (Family) Primary Care Physician SHIRIN MEHTA DO Sep 25, 2021 05:17
[2021-09-25 05:50] LABS: BILIRUBIN,URINE 1+ (NEGATIVE); CLARITY,URINE CLEAR; COLOR,URINE YELLOW; GLUCOSE, URINE (UA) NEGATIVE (NEGATIVE); KETONES,URINE TRACE (NEGATIVE); LEUKOCYTE ESTERASE ,URINE 1+ (NEGATIVE); NITRITE,URINE POSITIVE (NEGATIVE); PH,URINE 5.5 (5-9); PROTEIN,URINE NEGATIVE (NEGATIVE)
[2021-09-25 06:00] LABS: BACTERIA,URINE MODERATE /HPF
[2021-09-25] MEDS ORDERED: cefTRIAXone 1 GM PRE-MIX 50 ML IV STA (06:08)
--- NOTE | 2021-09-25 06:47 | Diagnostic Imaging Report ---
EXAMINATION: Chest 1 view HISTORY: Weakness. COMPARISON: 08/08/2021. FINDINGS: The lung volumes are normal. No focal consolidation is seen. No large pleural effusion or pneumothorax is seen. The cardiomediastinal silhouette is stable with post-CABG changes noted. There is calcified aortic atherosclerotic plaque. No acute osseous abnormality is seen. IMPRESSION: 1. No acute pleuroparenchymal process. Dictated by: Dictated on workstation # [id number]
--- NOTE | 2021-09-25 07:36 | History & Physical-Hospitalist ---
History of Present Illness HPI/Chief Complaint Chief complaint: Severe weakness with UTI History of present illness: This is a 71-year-old female of formerly [facility] very well-known to this examiner due to frequent hospital stays UTIs presented to the ER with confusion and generalized weakness was found to have UTI elevated lactic acid but normal blood pressure. Patient's reports that patient has been feeling badly in the last few days. Reviewed urine culture results and will place on Rocephin empirically. Patient has a recurrent issue with C. difficile colitis we will place her on treatment dose today since she is already having loose stools. Source: patient, family, RN/MD, old records Exam Limitations: clinical condition (lethargy) Date Seen 09/25/21 Time Seen by a Provider: 11:30 Attending Physician Chaya Gerber DO [facility] Referring Physician Date of Admission Sep 25, 2021 at 06:29 Home Medications & Allergies Home Medications Reviewed patient Home Medication Reconciliation performed by pharmacy medication reconciliations quality control lab technician and/or nursing. Patients Allergies have been reviewed. Allergies Allergies Coded Allergies codeine (Unverified Allergy, Unknown, 02/12/17) morphine (Verified Allergy, Unknown, NAUSEA, 02/12/17) Past Aqcevuy-Wzkrav-Hlcqhk Hx Patient Social History Marrital Status: Employed/Student: retired Tobacco Use?: No Smoking Status: Never a Smoker Use of E-Cig and/or Vaping dev: No Substance use?: No Alcohol Use?: No Immunizations Up To Date Date of Influenza Vaccine: Apr 07, 2021 First/Initial COVID19 Vaccinat: 08/08 Second COVID19 Vaccination Lg: 09/05 Tetanus Booster (TDap): Less Than 5 Years Hepatitis A: No Hepatitis B: No PED Vaccines UTD: No Date of Pneumonia Vaccine: Jul 30, 2020 Seasonal Allergies Seasonal Allergies: Yes Current Status Advance Directives: No Primary Language: Spanish Preferred Spoken Language: Spanish Past Medical History Surgeries: Appendectomy, Cardiac, Dialysis, Ear Surgery, Eye Surgery, Hysterectomy, Kidney Transplant, Nephrectomy, Oophorectomy, Orthopedic, Renal, T onsillectomy, Valve Replacement, Vascular Surgery Pneumonia Currently Using CPAP: No Currently Using BIPAP: No High Cholesterol, Hypertension Parkinson's Disease KETTLE GIRL History: Hysterectomy, Menopausal Sexually Transmitted Disease: No HIV/AIDS: No Kidney Infection, Bladder Infection, Renal Failure, UTI-Chronic Colitis (Cdiff type), Gastroesophageal Reflux, Chronic Diarrhea, Polyps, C-Diff, Irritable Bowel Degenerate Disk Disease, Arthritis, Chronic Back Pain Parathyroid Disease, Diabetes, Non-Insulin dep Cataract, Glaucoma Hearing Impairment: Hard of Hearing, Hearing Aide Left Kidney Did You Recieve Any Treatments: Yes What Type of Treatment Did You: Surgical Intervention Anxiety, Depression Blood Disorders: No Adverse Reaction/Blood Tranf: No (HAS HAD BLOOD WITH NO REACTION) Past medical history 1. Aortic stenosis 2. Polycystic kidney disease 3. Depression 4. Hypertension 5. Hyperlipidemia 6. Paroxysmal atrial fibrillation 7. Diastolic dysfunction 8. 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 Gastroparesis Past surgical history 1. Tonsillectomy 2. Appendectomy 3. Hysterectomy 4. Right nephrectomy and transplant nephrectomy left 5. Aortic valve replacement with bilateral pulmonary vein ablation and staple amputation of the left atrial appendage Family Medical History Alzheimer's disease 19 MOTHER (later in life) Dementia 19 MOTHER No Pertinent Family Hx PAST SURGICAL HISTORY: -LEFT EYE REMOVED/ARTIFICIAL EYE DUE TO UVEITIS -RIGHT COCHLEAR IMPLANT -DIALYSIS SHUNT LEFT ARM--DIALYSIS X 4 YEARS -MULTIPLE REVISIONS OF DIALYSIS AV GRAFT -PERITONEAL DIALYSIS SHUNT -BILATERAL NEPHRECTOMY WITH RENAL TRANSPLANT-IN RLQ OF ABDOMEN--6 YEARS AGO--FOR POLYCYSTIC KIDNEY DISEASE -CARDIAC ABLATION -AORTIC VALVE REPLACEMENT WITH PIG VALVE FOR AORTIC STENOSIS -TONSILLECTOMY -APPENDECTOMY -HYSTERECTOMY/ LATER BSO -CARDIAC CATH 2010--NON-OBSTRUCTIVE DISEASE, NO INTERVENTION -BILATERAL PULMONARY VEIN ABLATION WITH STAPLE AMPTUATION OF LEFT ATRIAL APPENDAGE AT SAME TIME AORTIC VALVE REPLACEMENT -EGD/COLONOSCOPIES/POLYPECTOMIES -EXCISION OF LEFT HIP HEMATOMA 01/2017 [facility]. Review of Systems Constitutional: see HPI, dizziness, fever, malaise, weakness EENTM: no symptoms reported Respiratory: no symptoms reported Cardiovascular: no symptoms reported Gastrointestinal: loss of appetite, nausea Genitourinary: decreased output, frequency, hematuria Musculoskeletal: no symptoms reported Skin: no symptoms reported Psychiatric/Neurological: No Symptoms Reported All Other Systems Reviewed Negative Unless Noted: Yes Physical Exam Physical Exam Vital Signs Vital Signs - First Documented 09/25/21 09/25/21 04:36 09:24 Temp 37.4 Pulse 96 Resp 20 B/P (MAP) 118/49 (72) Pulse Ox 94 O2 Delivery Room Air FiO2 21 Capillary Refill : Less Than 3 Seconds Height, Weight, BMI Height: 5'1.00" Weight: 127lbs. 1.0oz. 57.440857qo; 26.05 BMI Method:Stated General Appearance: No Apparent Distress, WD/WN, Anxious, Chronically ill Eyes: Right Eye Normal Inspection, Right Eye PERRL HEENT: PERRL/EOMI, Normal ENT Inspection, Pharynx Normal, Moist Mucous Membranes Neck: Full Range of Motion, Normal Inspection, Non Tender Respiratory: Chest Non Tender, Lungs Clear, Normal Breath Sounds, No Accessory Muscle Use, No Respiratory Distress Cardiovascular: Regular Rate, Rhythm, No Edema, No Gallop, No JVD, No Murmur, Normal Peripheral Pulses Gastrointestinal: Normal Bowel Sounds, No Organomegaly, No Pulsatile Mass, Non Tender, Soft Back: Normal Inspection, No CVA Tenderness, No Vertebral Tenderness Extremity: Normal Capillary Refill, Normal Inspection, Normal Range of Motion, Non Tender, No Calf Tenderness, No Pedal Edema Neurologic/Psychiatric: Alert, Oriented x3, No Motor/Sensory Deficits, 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 Assessment/Plan Admission Diagnosis Assessment: Sepsis UTI Generalized weakness Lactic acidosis Diarrhea History of C. diff infection Debility Diabetes type II Parkinsons Kidney transplant recipient Hypertension GERD Hyperlipidemia DVT prophylaxis Plan: Rocephin empirically Vancomycin empirically Home meds Admission Status: Inpatient Order (span 2 midnights) Reason for Inpatient Admission: Sepsis with UTI CHAYA GERBER DO Sep 25, 2021 07:36
[2021-09-25] MEDS ORDERED: ACETAMINOPHEN 325 MG TABLET PO PRN ×2 (07:45)
[2021-09-25] MEDS ORDERED: BISACODYL 10 MG SUPP (DULCOLAX) PR PRN ×2 (07:45)
[2021-09-25] MEDS ORDERED: LACTULOSE SYRUP 10GM/15ML (ENULOSE) 30ML UDC PO PRN ×2 (07:45)
[2021-09-25] MEDS ORDERED: fentaNYL INJ 100 MCG/2 ML AMP IVP PRN ×2 (07:45)
[2021-09-25] MEDS ORDERED: MELATONIN 3 MG TABLET PO PRN ×2 (07:45)
[2021-09-25] MEDS ORDERED: polyethylene glycoL POWDER 17 GM (MIRALAX) PACK PO PRN ×2 (07:45)
[2021-09-25] MEDS ORDERED: ONDANSETRON 4 MG (ZOFRAN) ORAL DISSOLVE TAB PO PRN ×2 (07:45)
[2021-09-25] MEDS ORDERED: MILK OF MAGNESIA 400 MG/5 ML 30 ML UDC PO PRN ×2 (07:45)
[2021-09-25] MEDS ORDERED: diphenhydrAMINE 50 MG/ML INJ (BENADRYL) IVP PRN ×2 (07:45)
[2021-09-25] MEDS ORDERED: ANTACID SUSP 30 ML UDC (MYLANTA) PO PRN ×2 (07:45)
[2021-09-25] MEDS ORDERED: NS IV 1000 ML 1,000 ML IV SCH (07:45)
[2021-09-25] MEDS ORDERED: diphenhydrAMINE 25 MG TAB (BENADRYL) PO PRN ×2 (07:45)
[2021-09-25] MEDS ORDERED: CHOLESTYRAMINE 4 GM (QUESTRAN LITE, PREVALITE) PKT PO PRN ×2 (07:45)
[2021-09-25] MEDS ORDERED: ENOXAPARIN 40 MG/0.4 ML (LOVENOX) SYR SC SCH (07:45)
[2021-09-25] MEDS ORDERED: ONDANSETRON 4 MG/2 ML (SDV) Z0FRAN IV PRN ×2 (07:45)
[2021-09-25] MEDS ORDERED: CALCIUM CARBONATE 500 MG (TUMS) TAB.CHEW PO PRN ×2 (07:45)
[2021-09-25 08:16] VITALS: BP 159/70
[2021-09-25] MEDS: NS IV 1000 ML 1,000 ML IV SCH ×2 (08:54→16:53)
[2021-09-25] MEDS ORDERED: VANCOMYCIN 125 MG CAPSULE PO SCH (09:00)
[2021-09-25] MEDS ORDERED: DOCUSATE SODIUM 100 MG (COLACE) CAP PO SCH (09:00)
[2021-09-25] MEDS ORDERED: SENNOSIDES 8.6 MG (SENOKOT) TAB PO SCH (09:00)
[2021-09-25 09:24] VITALS: BP 159/70
[2021-09-25] MEDS ORDERED: RT-ALBUTEROL SULF 2.5 MG/3 ML PRE-MIX VIAL INH PRN (09:45)
[2021-09-25] MEDS: ENOXAPARIN 40 MG/0.4 ML (LOVENOX) SYR SC SCH (10:14)
[2021-09-25] MEDS: VANCOMYCIN 125 MG CAPSULE PO SCH ×4 (10:14→20:27)
[2021-09-25] MEDS: DOCUSATE SODIUM 100 MG (COLACE) CAP PO SCH ×2 (10:14→19:20)
[2021-09-25] MEDS: SENNOSIDES 8.6 MG (SENOKOT) TAB PO SCH ×2 (10:31→19:20)
[2021-09-25] MEDS ORDERED: Vitamin d3 PO (10:58)
[2021-09-25 11:31] VITALS: BP 152/71
[2021-09-25] MEDS ORDERED: clonazePAM 0.5 MG (KlonoPIN) TAB PO PRN (12:30)
[2021-09-25] MEDS ORDERED: GABAPENTIN 600 MG (NEURONTIN) TAB PO SCH (13:00)
[2021-09-25] MEDS ORDERED: PATIENT MAY USE OWN MEDS, ALL MC SCH (13:00)
[2021-09-25] MEDS ORDERED: FLUTICASONE NASAL SPRAY (FLONASE) 16 GM BTL NS PRN (14:30)
[2021-09-25 15:28] VITALS: BP 146/67
[2021-09-25] MEDS: DICYCLOMINE 20 MG TABLET PO SCH ×2 (16:42→20:30)
[2021-09-25] MEDS: LOPERAMIDE 2 MG (IMODIUM) TABLET PO PRN (16:42)
[2021-09-25] MEDS ORDERED: DICYCLOMINE HCL 20 MG TABLET PO SCH (17:00)
[2021-09-25 20:10] VITALS: BP 134/65
[2021-09-25] MEDS: ALOSETRON PO SCH (20:27)
[2021-09-25] MEDS: MIRTAZAPINE 7.5 MG TABLET PO SCH (20:29)
[2021-09-25] MEDS: QUEtiapine 25 MG (SEROquel) TAB IMMEDIATE RELEASE PO SCH (20:32)
[2021-09-25] MEDS: GABAPENTIN 600 MG (NEURONTIN) TAB PO SCH (20:32)
[2021-09-25] MEDS: RESTASIS OU SCH (20:33)
[2021-09-25] MEDS: MYCOPHENOLIC 180 MG PO SCH (20:33)
[2021-09-25] MEDS: OPTHALMIC EMULSION OU SCH (20:33)
[2021-09-25] MEDS ORDERED: ALOSETRON PO SCH (21:00)
[2021-09-25] MEDS ORDERED: TACROLIMUS 1 MG (PROGRAF) CAP NON-FORMULARY PO SCH ×2 (21:00)
[2021-09-25] MEDS ORDERED: QUEtiapine 25 MG (SEROquel) TAB IMMEDIATE RELEASE PO SCH (21:00)
[2021-09-25] MEDS ORDERED: ALOSETRON HCL 0.5 MG PO SCH (21:00)
[2021-09-25] MEDS ORDERED: NON-FORMULARY MEDICATION 1 EA EA (Cranberry Fruit (Cranberry) 450 MG) PO SCH (21:00)
[2021-09-25] MEDS ORDERED: DICYCLOMINE HCL PO SCH (21:00)
[2021-09-25] MEDS ORDERED: MYCOPHENOLATE SODIUM 180 MG PO SCH (21:00)
[2021-09-25] MEDS ORDERED: NON-FORMULARY MEDICATION 1 EA EA (Cyclosporine (Restasis) 1 EACH) OD SCH (21:00)
[2021-09-26 00:05] VITALS: BP 140/70
[2021-09-26] MEDS: NS IV 1000 ML 1,000 ML IV SCH ×3 (00:34→16:56)
[2021-09-26 04:00] VITALS: BP 123/72
[2021-09-26 06:09] LABS: BASOPHILS % (AUTO) 0 % (0-10); EOSINOPHILS # (AUTO) 0.1 10^3/uL (0.0-0.3); EOSINOPHILS % (AUTO) 1 % (0-10); HEMATOCRIT 33 % (35-52); LYMPHOCYTES # (AUTO) 0.9 10^3/uL (1.0-4.0); LYMPHOCYTES % (AUTO) 10 % (12-44); MEAN CORPUSCULAR HEMOGLOBIN 30 pg (25-34); MEAN CORPUSCULAR HGB CONC 34 g/dL (32-36); MEAN CORPUSCULAR VOLUME 89 fL (80-99); MONOCYTES # (AUTO) 0.6 10^3/uL (0.0-1.0); MONOCYTES % (AUTO) 6 % (0-12); NEUTROPHILS # (AUTO) 7.5 10^3/uL (1.8-7.8); NEUTROPHILS % (AUTO) 82 % (42-75); PLATELET COUNT 139 10^3/uL (130-400); WHITE BLOOD COUNT 9.1 10^3/uL (4.3-11.0)
[2021-09-26] MEDS: MULTIVIT W/MINERALS TAB (THERAGRAN M) PO SCH (06:11)
[2021-09-26 06:32] LABS: ALBUMIN 3.2 GM/DL (3.2-4.5); BILIRUBIN,TOTAL 0.8 MG/DL (0.1-1.0); CALCIUM 7.8 MG/DL (8.5-10.1); CREATININE SERUM 0.7 MG/DL (0.60-1.30); POTASSIUM 3.4 MMOL/L (3.6-5.0); TOTAL PROTEIN 5.5 GM/DL (6.4-8.2)
[2021-09-26 07:19] VITALS: BP 119/59
[2021-09-26] MEDS: ASCORBIC ACID (VIT C) 500 MG TABLET PO SCH (08:08)
[2021-09-26] MEDS: VANCOMYCIN 125 MG CAPSULE PO SCH ×4 (08:08→20:47)
[2021-09-26] MEDS: ENOXAPARIN 40 MG/0.4 ML (LOVENOX) SYR SC SCH (08:08)
[2021-09-26] MEDS: LACTOBACILLUS ACIDOPHILUS (PROBIOTIC) CAPSULE PO SCH (08:09)
[2021-09-26] MEDS: cefTRIAXone 1 GM PRE-MIX 50 ML IV SCH (08:09)
[2021-09-26] MEDS: OPTHALMIC EMULSION OU SCH ×2 (08:10→20:54)
[2021-09-26] MEDS: RESTASIS OU SCH ×2 (08:10→20:54)
[2021-09-26] MEDS: GABAPENTIN 600 MG (NEURONTIN) TAB PO SCH ×3 (08:11→20:50)
[2021-09-26] MEDS: DICYCLOMINE 20 MG TABLET PO SCH ×4 (08:12→20:51)
[2021-09-26] MEDS: LIVALO 2 MG PO SCH (08:14)
[2021-09-26] MEDS: TACROLIMUS 1 MG (PROGRAF) CAP NON-FORMULARY PO SCH (08:15)
[2021-09-26] MEDS: ALOSETRON PO SCH ×2 (08:16→20:52)
[2021-09-26] MEDS: MYCOPHENOLIC 180 MG PO SCH ×2 (08:17→20:52)
[2021-09-26] MEDS: buPROPion 75 MG (WELLBUTRIN) TAB PO SCH (08:18)
[2021-09-26] MEDS: DORZOLAMIDE 2% 10 ML BTL (TRUSOPT) OU SCH (08:20)
[2021-09-26] MEDS: ASPIRIN E.C. 81 MG (ECOTRIN) TAB PO SCH (08:23)
[2021-09-26] MEDS: SENNOSIDES 8.6 MG (SENOKOT) TAB PO SCH ×2 (08:24→20:17)
[2021-09-26] MEDS: DOCUSATE SODIUM 100 MG (COLACE) CAP PO SCH ×2 (08:25→20:16)
[2021-09-26] MEDS ORDERED: KCL 20 MEQ TAB (K-DUR) PO ONE (08:45)
[2021-09-26] MEDS ORDERED: NON-FORMULARY MEDICATION 1 EA EA (Mirtazapine 7.5 MG) PO SCH (09:00)
[2021-09-26] MEDS ORDERED: RESTASIS 0.05% OD SCH (09:00)
[2021-09-26] MEDS ORDERED: BRINZOLAMIDE OD SCH (09:00)
[2021-09-26] MEDS ORDERED: PITAVASTATIN CALCIUM 1 MG PO SCH (09:00)
[2021-09-26] MEDS ORDERED: OPTHALMIC EMULSION OD SCH (09:00)
[2021-09-26] MEDS ORDERED: buPROPion 75 MG (WELLBUTRIN) TAB PO SCH (09:00)
[2021-09-26] MEDS ORDERED: cefTRIAXone 1 GM PRE-MIX 50 ML IV SCH (09:00)
[2021-09-26] MEDS ORDERED: VITAMIN D3 PO SCH (09:00)
--- NOTE | 2021-09-26 09:04 | Physical Therapy Evaluation ---
PT Evaluation-General Medical Diagnosis Admission Date Sep 25, 2021 at 06:29 Medical Diagnosis: sepsis Onset Date: Sep 25, 2021 Therapy Diagnosis Therapy Diagnosis: generalized weakness/debility Height/Weight Height (Feet): 5 Height (Inches): 1.00 Weight (Pounds): 127 Weight (Ounces): 1.0 Precautions Precautions/Isolations: Contact Isolation, Fall Prevention Weight Bear Status Right Lower Extremity: Right Weight Bearing/Tolerated Left Lower Extremity: Left Weight Bearing/Tolerated Referral Physician: Zabrina Reason for Referral: Evaluation/Treatment Medical History Pertinent Medical History: Atrial Fib, HTN, Neuropathy, Parkinson's, Renal Insufficiency Additional Medical History chronic UTI's and C-diff (multiple hospital admits) Current History ER secondary to C-diff and UTI Reviewed History: Yes Social History Home: Single Level Current Living Status: Spouse Prior Prior Level of Function SCALE: Activities may be completed with or without assistive devices. 1-Tebruracwb-scedqwp completes the activity by him/herself with no assistance from a helper. 5-Set-up or Clean-up Assistance-helper sets up or cleans up; patient completes activity. [place] assists only prior to or following the activity. 4-Supervision or Touching Assistance-helper provides verbal cues and/or touching/steadying and/or contact guard assistance as patient completes activity. Assistance may be provided throughout the activity or intermittently. 3-Partial/Moderate Assistance-helper does LESS THAN HALF the effort. [place] lifts, holds or supports trunk or limbs, but provides less than half the effort. 2-Substantial/Maximal Assistance-helper does MORE THAN HALF the effort. [place] lifts or holds trunk or limbs and provides more than half the effort. 5-Hlpyguljg-hnujrf does ALL the effort. Patient does none of the effort to complete the activity. Or, the assistance of 2 or more helpers is required for the patient to complete the activity. If activity was not attempted, code reason: 7-Patient Refused. 9-Not Applicable-not attempted and the patient did not perform the activity before the current illness, exacerbation or injury. 10-Not Attempted due to Environmental Limitations-(lack of equipment, weather restraints, etc.). 88-Not Attempted due to Medical Conditions or Safety Concerns. Bed Mobility: 4 Transfers (B,C,W/C): 4 Gait: 4 Indoor Mobility (Ambulation): Needed Some Help Stairs: Needed Some Help Prior Devices Use: Walker spouse assist at home PLOF PT Evaluation-Current Subjective Patient agrees to PT. Pain Numeric Pain Scale: 0-No Pain Location: No Pain Reported Objective Patient Orientation: Person, Time, Situation Attachments: IV ROM/Strength ROM Lower Extremities bilateral LE WFL Strength Lower Extremities 3+/5 grossly bilateral LE all planes Integumentary/Posture Integumentary refer to nursing notes Posture WFL Neuromuscular (Tone, Coordination, Reflexes) Parkinson's Sensory Vision: Wears Glasses Hearing: Impaired Transfers Lying to Sitting/Side of Bed(Q: 4 Sit to Stand (QC): 4 Chair/Eun-sw-Gqnbb Xfer(QC): 4 Gait Does the Patient Walk?: Yes Mode of Locomotion: Walk Anticipated Mode of Locomotion: Walk Walk 10 feet (QC): 4 Walk 50 ft with 2 Turns(QC): 88 Walk 150 ft (QC): 88 Distance: 15' Gait Assistive Device: FWW Comments/Gait Description steady, functional gait sequence Balance Sitting Static: Normal Sitting Dynamic: Normal Standing Static: Fair Standing Dynamic: Fair Assessment/Needs 71 y.o. female, will be seen short term by skilled PT to address functional strength and mobility to improve current LOF to safely return to home at maximum LOF. Rehab Potential: Fair PT [facility] Goals Share Holder Goals PT [facility] Goals Time Frame: Oct 08, 2021 Roll Left & Right (QC): 5 Sit to Lying (QC): 5 Lying-Sitting on Side/Bed(QC): 5 Sit to Stand (QC): 5 Chair/Dcp-th-Stbzm Xfer(QC): 5 Toilet Transfer (QC): 5 Walk 10 feet (QC): 5 Walk 50ft with 2 Turns (QC): 5 Walk 150 ft (QC): 5 PT Plan Problem List Problem List: Activity Tolerance, Functional Strength, Safety, Balance, Gait, Transfer, Bed Mobility Treatment/Plan Treatment Plan: Continue Plan of Care Treatment Plan: Bed Mobility, Education, Functional Activity Jose, Functional Strength, Gait, Safety, Therapeutic Exercise, Transfers Treatment Duration: Oct 08, 2021 Frequency: 6 times per week Estimated Hrs Per Day: .25 hour per day Time/GCodes Time In: 830 Time Out: 843 Total Billed Treatment Time: 13 [facility] Sep 26, 2021 09:04
[2021-09-26] MEDS ORDERED: MYCO180T3 PO (10:48)
[2021-09-26] MEDS ORDERED: PITA2TAB2 PO (10:52)
[2021-09-26] MEDS ORDERED: CLON0.5T4 PO (10:59)
[2021-09-26] MEDS ORDERED: CHOL500050 PO (11:03)
--- NOTE | 2021-09-26 11:07 | Occupational Therapy Eval ---
OT Evaluation-General/PLF Medical Diagnosis Admission Date Sep 25, 2021 at 06:29 Medical Diagnosis: sepsis Onset Date: Sep 25, 2021 Therapy Diagnosis Therapy Diagnosis: reduced endurance, strength Height/Weight Height (Feet): 5 Height (Inches): 1.00 Weight (Pounds): 127 Weight (Ounces): 1.0 Precautions Precautions/Isolations: Contact Isolation, Fall Prevention Referral Physician: Zabrina Referral Reason: Evaluation/Treatment Medical History Pertinent Medical History: Atrial Fib, HTN, Neuropathy, Parkinson's, Renal Insufficiency Current History Pt arrived to ER with increased confusion and weakness. Found to have UTI and C- diff. Pt reports she lives with her spouse in a single story home. She was indep with adls. She and her spouse receive meals on wheels for 5 meals/week. Pt's spouse will make her a protein shake when not eating a meal. They have a patient svcs mgr once every other week. She uses an upright walker at baseline Reviewed History: Yes Social History Home: Single Level Current Living Status: Spouse ADL-Prior Level of Function SCALE: Activities may be completed with or without assistive devices. 8-Rlucbsdned-yjourbv completes the activity by him/herself with no assistance from a helper. 5-Set-up or Clean-up Assistance-helper sets up or cleans up; patient completes activity. [place] assists only prior to or following the activity. 4-Supervision or Touching Assistance-helper provides verbal cues and/or touchin g/steadying and/or contact guard assistance as patient completes activity. Assistance may be provided throughout the activity or intermittently. 3-Partial/Moderate Assistance-helper does LESS THAN HALF the effort. [place] lifts, holds or supports trunk or limbs, but provides less than half the effort. 2-Substantial/Maximal Assistance-helper does MORE THAN HALF the effort. [place] lifts or holds trunk or limbs and provides more than half the effort. 3-Apvjjsxsr-tqiihr does ALL the effort. Patient does none of the effort to complete the activity. Or, the assistance of 2 or more helpers is required for the patient to complete the activity. If activity was not attempted, code reason: 7-Patient Refused. 9-Not Applicable-not attempted and the patient did not perform the activity before the current illness, exacerbation or injury. 10-Not Attempted due to Environmental Limitations-(lack of equipment, weather restraints, etc.). 88-Not Attempted due to Medical Conditions or Safety Concerns. Self Care: Independent Functional Cognition: Needed Some Help DME/Equipment: Grab Bars, Tub/Shower OT Current Status Subjective Pt tearful throughout eval regarding multiple hospital stays for same diagnosis (UTI and c-diff). Emotional support provided. Appearance Pt requested to return to supine, all needs within reach at OT departure. Mental Status/Objective Patient Orientation: Person, Place, Situation Attachments: IV Current Glasses/Contacts: Yes Hearing Aids: Yes Hand Dominance: Right Upper Extremity ROM WNL Upper Extremity Strength 3+/5 grossly ADL-Treatment Lower Body Dressing (QC): 4 (per clinical judgment) On/Off Footwear (QC): 6 Toileting Hygiene (QC): 3 (per clinical judgment) Pt sitting in chair at OT arrival. She is tearful/emotional in regards to multiple admissions under same diagnosis. Education on simple changes such as correct sequence of valerie care and overall cleanliness/hygiene. Pt able to don/doff bilateral socks while sitting in chair without assist, extra effort observed. She stood from recliner with CGA, mild unsteadiness but no LOB. She ambulated ~10 feet with use of walker and CGA, cues for safety and attention to IV line. Slight increased in balance assist (min a) needed when removing one hand from walker. At this time, Anticipate CGA-min a needed for clothing management and min a when reaching posteriorly for valerie care. Pt able to return to supine with SBA. Education OT Patient Education: Energy conservation, Modified ADL techniques, Purpose of tx/functional activities, Safety issues, Transfer techniques Teaching Recipient: Patient Teaching Methods: Demonstration, Discussion Response to Teaching: Verbalize Understanding, Return Demonstration, Reinforcement Needed OT Labor Gang Supervisor Goals Labor Gang Supervisor Goals Time Frame: Oct 08, 2021 Oral Hygiene (QC): 5 Toileting Hygiene (QC): 5 Shower/Bathe Self (QC): 4 Upper Body Dressing (QC): 5 Lower Body Dressing (QC): 5 1=Demonstrate adherence to instructed precautions during ADL tasks. 2=Patient will verbalize/demonstrate understanding of assistive devices/modifications for ADL. 3=Patient will improve strength/tolerance for activity to enable patient to perform ADL's. OT Education/Plan Problem List/Assessment Assessment: Decreased Activ Tolerance, Decreased Safety Aware, Decreased UE St rength, Impaired Cognition, Impaired Funct Balance, Impaired Self-Care Skills Discharge Recommendations Plan/Recommendations: Continue POC Therapy Discharge Recommendati: Post Acute OT (home health OT) Treatment Plan/Plan of Care Treatment,Training & Education: Yes Patient would benefit from OT for education, treatment and training to promote independence in ADL's, mobility, safety and/or upper extremity function for A DL's. Plan of Care: ADL Retraining, Functional Mobility, Group Exercise/Act as Ind, UE Funct Exercise/Act Treatment Duration: Oct 08, 2021 Frequency: 3 times per week (3-5x/week) Estimated Hrs Per Day: .25 hour per day Agreement: Yes Rehab Potential: Fair Time/GCodes Start Time: 10:43 Stop Time: 10:56 Total Time Billed (hr/min): 13 Billed Treatment Time 1 visit Xuan Muñoz OT Sep 26, 2021 11:07
[2021-09-26 11:13] VITALS: BP 149/67
[2021-09-26] MEDS: LOPERAMIDE 2 MG (IMODIUM) TABLET PO PRN (14:20)
--- NOTE | 2021-09-26 14:23 | Progress Note ---
Subjective Subjective/Events-last exam Pt states she is feeling better already, but hasn't been up much yet, just to chair today. She is hopeful to go home without going to SNF first and has family coming to visit at the end of the week. History is provided by patient and her . Focused Exam Lactate Level 09/25/21 05:40: Lactic Acid Level 5.13*H 09/25/21 07:51: Lactic Acid Level 1.02 Time of Focused Exam: 06:00 Objective Exam Last Set of Vital Signs Vital Signs Date Time Temp Pulse Resp B/P (MAP) Pulse Ox O2 Delivery O2 Flow Rate FiO2 09/26/21 11:13 36.8 95 18 149/67 (94) 96 Room Air 09/25/21 09:24 21 Capillary Refill : Less Than 3 Seconds I&O Intake and Output 09/26/21 00:00 Intake Total 1320 ml Balance 1320 ml Intake Oral 320 ml IV Total 1000 ml # Voids 7 # Bowel Movements 8 Daily Weight Change No General: Alert, No Acute Distress Lungs: Clear to Auscultation, Normal Air Movement Heart: Regular Rate, No Murmurs Abdomen: Normal Bowel Sounds, Soft, Other (diffuse ttp) Extremities: No Edema Neuro: Normal Speech Psych/Mental Status: Mood NL Results/Procedures Lab Laboratory Tests 09/26/21 05:52: White Blood Count 9.1, Red Blood Count 3.65L, Hemoglobin 11.0L, Hematocrit 33L, Mean Corpuscular Volume 89, Mean Corpuscular Hemoglobin 30, Mean Corpuscular Hemoglobin Concent 34, Red Cell Distribution Width 13.2, Platelet Count 139, Mean Platelet Volume 10.0, Immature Granulocyte % (Auto) 1, Neutrophils (%) (Auto) 82H, Lymphocytes (%) (Auto) 10L, Monocytes (%) (Auto) 6, Eosinophils (%) (Auto) 1, Basophils (%) (Auto) 0, Neutrophils # (Auto) 7.5, Lymphocytes # (Auto) 0.9L, Monocytes # (Auto) 0.6, Eosinophils # (Auto) 0.1, Basophils # (Auto) 0.0, Immature Granulocyte # (Auto) 0.1, Sodium Level 139, Potassium Level 3.4L, Chloride Level 111H, Carbon Dioxide Level 15L, Anion Gap 13, Blood Urea Nitrogen 8, Creatinine 0.70, Estimat Glomerular Filtration Rate 92, BUN/Creatinine Ratio 11, Glucose Level 97, Calcium Level 7.8L, Corrected Calcium 8.4L, Total Bilirubin 0.8, Aspartate Amino Transf (AST/SGOT) 11, Alanine Aminotransferase (ALT/SGPT) 6, Alkaline Phosphatase 53, Total Protein 5.5L, Albumin 3.2 Microbiology 09/25/21 C. difficile GDH Antigen & Toxins - Final, Complete 09/25/21 Urine Culture - Preliminary, Resulted Gram Negative Nate 09/25/21 Blood Culture - Preliminary, Resulted Staph, Coag Neg (OVEREDGE SEWER) Assessment/Plan Assessment/Plan (1) UTI (urinary tract infection) Status: Acute Assessment & Plan: Ceftriaxone. Culture with gram neg rods, follow up final. Qualifiers: Qualified Codes: N30.01 - Acute cystitis with hematuria (2) Sepsis Status: Acute Assessment & Plan: Secondary to UTI, lactic acidosis resolved. 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 Started on vancomycin on admission, improving. Recommend looking into fecal transplant given recurrent episodes. 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
[2021-09-26 16:00] VITALS: BP 127/71
[2021-09-26 19:57] VITALS: BP 150/67
[2021-09-26] MEDS: QUEtiapine 25 MG (SEROquel) TAB IMMEDIATE RELEASE PO SCH (20:49)
[2021-09-26] MEDS: MIRTAZAPINE 7.5 MG TABLET PO SCH (20:50)
[2021-09-27 00:09] VITALS: BP 123/58
[2021-09-27] MEDS: NS IV 1000 ML 1,000 ML IV SCH ×3 (01:03→17:04)
[2021-09-27 03:13] VITALS: BP 133/60
[2021-09-27] MEDS: MULTIVIT W/MINERALS TAB (THERAGRAN M) PO SCH (05:49)
[2021-09-27 06:00] LABS: EOSINOPHILS # (AUTO) 0.1 10^3/uL (0.0-0.3); EOSINOPHILS % (AUTO) 1 % (0-10); HEMATOCRIT 27 % (35-52); MEAN CORPUSCULAR HGB CONC 34 g/dL (32-36); PLATELET COUNT 111 10^3/uL (130-400)
[2021-09-27 06:02] LABS: BASOPHILS % (AUTO) 0 % (0-10); LYMPHOCYTES % (AUTO) 14 % (12-44); MEAN CORPUSCULAR HEMOGLOBIN 30 pg (25-34); MEAN CORPUSCULAR VOLUME 89 fL (80-99); MEAN PLATELET VOLUME 10.1 fL (9.0-12.2); MONOCYTES # (AUTO) 0.5 10^3/uL (0.0-1.0); MONOCYTES % (AUTO) 8 % (0-12); NEUTROPHILS # (AUTO) 5.3 10^3/uL (1.8-7.8); NEUTROPHILS % (AUTO) 76 % (42-75)
[2021-09-27 06:06] LABS: ALBUMIN 2.6 GM/DL (3.2-4.5)
[2021-09-27 06:07] LABS: POTASSIUM 2.9 MMOL/L (3.6-5.0)
[2021-09-27 06:08] LABS: CALCIUM 6.9 MG/DL (8.5-10.1)
[2021-09-27 06:09] LABS: TOTAL PROTEIN 4.2 GM/DL (6.4-8.2)
[2021-09-27 06:11] LABS: BILIRUBIN,TOTAL 0.5 MG/DL (0.1-1.0)
[2021-09-27 06:13] LABS: CREATININE SERUM 0.54 MG/DL (0.60-1.30)
[2021-09-27 07:28] VITALS: BP 157/67
--- NOTE | 2021-09-27 08:45 | Physical Therapy Daily Note ---
PT Daily Note-Current Subjective Patient agrees to PT. She reports frustration with having diarrhea. Mental Status Patient Orientation: Normal For Age Attachments: IV Transfers SCALE: Activities may be completed with or without assistive devices. 3-Ywnxckdrlw-fzwdnjs completes the activity by him/herself with no assistance from a helper. 5-Set-up or Clean-up Assistance-helper sets up or cleans up; patient completes activity. [place] assists only prior to or following the activity. 4-Supervision or Touching Assistance-helper provides verbal cues and/or touching/steadying and/or contact guard assistance as patient completes activity. Assistance may be provided throughout the activity or intermittently. 3-Partial/Moderate Assistance-helper does LESS THAN HALF the effort. [place] lifts, holds or supports trunk or limbs, but provides less than half the effort. 2-Substantial/Maximal Assistance-helper does MORE THAN HALF the effort. [place] lifts or holds trunk or limbs and provides more than half the effort. 8-Rakgzhxgu-gnvdvt does ALL the effort. Patient does none of the effort to complete the activity. Or, the assistance of 2 or more helpers is required for the patient to complete the activity. If activity was not attempted, code reason: 7-Patient Refused. 9-Not Applicable-not attempted and the patient did not perform the activity before the current illness, exacerbation or injury. 10-Not Attempted due to Environmental Limitations-(lack of equipment, weather restraints, etc.). 88-Not Attempted due to Medical Conditions or Safety Concerns. Lying to Sitting/Side of Bed(Q: 4 Sit to Stand (QC): 4 Chair/Dyg-om-Dwywf Xfer(QC): 4 Toilet Transfer (QC): 4 Weight Bearing Right Lower Extremity: Right Weight Bearing/Tolerated Left Lower Extremity: Left Weight Bearing/Tolerated Gait Training Does the Patient Walk?: Yes Distance: 200' Walk 10 feet (QC): 4 Walk 50 ft with 2 Turns(QC): 4 Walk 150 ft (QC): 4 Gait Assistive Device: FWW SBA/safe and functional gait sequence Treatments Patient incontinent BM requiring assist to cleanse and change patient. Ambulated 200' FWW SBA. Assessment Improved mobility with increase in ambulation distance. Increase activity as tolerated by patient. PT [facility] Goals [place] Cutting Machine Operator Goals PT [place] Cutting Machine Operator Goals Time Frame: Oct 08, 2021 Roll Left & Right (QC): 5 Sit to Lying (QC): 5 Lying-Sitting on Side/Bed(QC): 5 Sit to Stand (QC): 5 Chair/[place] Xfer(QC): 5 Toilet Transfer (QC): 5 Walk 10 feet (QC): 5 Walk 50ft with 2 Turns (QC): 5 Walk 150 ft (QC): 5 PT Plan Treatment/Plan Treatment Plan: Continue Plan of Care Treatment Plan: Bed Mobility, Education, Functional Activity Jose, Functional Strength, Gait, Safety, Therapeutic Exercise, Transfers Treatment Duration: Oct 08, 2021 Frequency: 6 times per week Estimated Hrs Per Day: .25 hour per day Time/GCodes Time In: 814 Time Out: 826 Total Billed Treatment Time: 12 Total Billed Treatment 1 visit FA 12 min SARIAH VALLADARES PT Sep 27, 2021 08:45
[2021-09-27] MEDS: cefTRIAXone 1 GM PRE-MIX 50 ML IV SCH (08:57)
[2021-09-27] MEDS: ENOXAPARIN 40 MG/0.4 ML (LOVENOX) SYR SC SCH (08:58)
[2021-09-27] MEDS: ASCORBIC ACID (VIT C) 500 MG TABLET PO SCH (08:59)
[2021-09-27] MEDS: LACTOBACILLUS ACIDOPHILUS (PROBIOTIC) CAPSULE PO SCH (08:59)
[2021-09-27] MEDS: SENNOSIDES 8.6 MG (SENOKOT) TAB PO SCH ×2 (08:59→20:59)
[2021-09-27] MEDS: VANCOMYCIN 125 MG CAPSULE PO SCH ×4 (08:59→20:54)
[2021-09-27] MEDS: ASPIRIN E.C. 81 MG (ECOTRIN) TAB PO SCH (08:59)
[2021-09-27] MEDS: DOCUSATE SODIUM 100 MG (COLACE) CAP PO SCH ×2 (09:00→20:59)
[2021-09-27] MEDS: GABAPENTIN 600 MG (NEURONTIN) TAB PO SCH ×3 (09:01→20:54)
[2021-09-27] MEDS: MYCOPHENOLIC 180 MG PO SCH ×2 (09:02→20:55)
[2021-09-27] MEDS: TACROLIMUS 1 MG (PROGRAF) CAP NON-FORMULARY PO SCH (09:03)
[2021-09-27] MEDS: buPROPion 75 MG (WELLBUTRIN) TAB PO SCH (09:03)
[2021-09-27] MEDS: LIVALO 2 MG PO SCH (09:04)
[2021-09-27] MEDS: DICYCLOMINE 20 MG TABLET PO SCH ×4 (09:05→20:57)
[2021-09-27] MEDS: ALOSETRON PO SCH ×2 (09:06→20:58)
[2021-09-27] MEDS: RESTASIS OU SCH ×2 (09:08→20:55)
[2021-09-27] MEDS: OPTHALMIC EMULSION OU SCH ×2 (09:08→20:55)
[2021-09-27] MEDS: DORZOLAMIDE 2% 10 ML BTL (TRUSOPT) OU SCH (09:09)
[2021-09-27] MEDS: POTASSIUM CL 10MEQ/50ML IVPB 50 ML IV SCH ×6 (10:07→16:02)
[2021-09-27 11:35] VITALS: BP 147/73
--- NOTE | 2021-09-27 14:11 | Occ Therapy Progress Note ---
Therapy Progress Note Pt alert, lying in bed. DAVID attempted to have pt participate in OT session. Pt declined stating that she is going home tomorrow and can wait to do anything at home. HERNANDEZ attempted to have pt complete B UE exercises, oral care or any grooming. Pt stated that she is too cold and doesn't want to do anything since she is going home tomorrow. HERNANDEZ asked pt if there was anything that pt was anxious about going home and pt stated that she is independent at home. Pt in bed at end of session with call light/phone in reach. All needs met. 1 refusal:[id number] VIRAJ VELIZ Sep 27, 2021 14:11
--- NOTE | 2021-09-27 15:33 | Progress Note ---
Subjective Subjective/Events-last exam States she is feeling a lot better today, has had a few less bowel movements and was able to walk a little. Focused Exam Lactate Level 09/25/21 05:40: Lactic Acid Level 5.13*H 09/25/21 07:51: Lactic Acid Level 1.02 Time of Focused Exam: 06:00 Objective Exam Last Set of Vital Signs Vital Signs Date Time Temp Pulse Resp B/P (MAP) Pulse Ox O2 Delivery O2 Flow Rate FiO2 09/27/21 14:48 100 Room Air 09/27/21 11:35 37.1 80 18 147/73 (97) 09/25/21 09:24 21 Capillary Refill : Less Than 3 Seconds I&O Intake and Output 09/27/21 00:00 Intake Total 1900 ml Balance 1900 ml Intake Oral 900 ml IV Total 1000 ml # Voids 6 # Bowel Movements 6 General: Alert, No Acute Distress Lungs: Clear to Auscultation, Normal Air Movement Heart: Regular Rate, No Murmurs Abdomen: Soft, Other (hyperactive bowel sounds, minimal ttp) Extremities: No Edema Neuro: Normal Speech Psych/Mental Status: Mood NL Results/Procedures Lab Laboratory Tests 09/27/21 05:42: White Blood Count 7.0, Red Blood Count 2.99L, Hemoglobin 9.0L, Hematocrit 27L, Mean Corpuscular Volume 89, Mean Corpuscular Hemoglobin 30, Mean Corpuscular Hemoglobin Concent 34, Red Cell Distribution Width 13.2, Platelet Count 111L, Mean Platelet Volume 10.1, Immature Granulocyte % (Auto) 1, Neutrophils (%) (Auto) 76H, Lymphocytes (%) (Auto) 14, Monocytes (%) (Auto) 8, Eosinophils (%) (Auto) 1, Basophils (%) (Auto) 0, Neutrophils # (Auto) 5.3, Lymphocytes # (Auto) 1.0, Monocytes # (Auto) 0.5, Eosinophils # (Auto) 0.1, Basophils # (Auto) 0.0, Immature Granulocyte # (Auto) 0.0, Percent Immature Platelet Fraction 2.1, Sodium Level 140, Potassium Level 2.9L, Chloride Level 117H, Carbon Dioxide Level 13L, Anion Gap 10, Blood Urea Nitrogen 4L, Creatinine 0.54L, Estimat Glomerular Filtration Rate 98, BUN/Creatinine Ratio 7, Glucose Level 76, Calcium Level 6.9L, Corrected Calcium 8.0L, Total Bilirubin 0.5, Aspartate Amino Transf (AST/SGOT) 8, Alanine Aminotransferase (ALT/SGPT) 6, Alkaline Phosphatase 41, Total Protein 4.2L, Albumin 2.6L Microbiology 09/25/21 C. difficile GDH Antigen & Toxins - Final, Complete 09/25/21 Urine Culture - Final, Complete Klebsiella pneumoniae 09/25/21 Blood Culture - Preliminary, Resulted Staph, Coag Neg (LEAD WEB APPLICATION DEVELOPER) Assessment/Plan Assessment/Plan (1) UTI (urinary tract infection) Status: Acute Assessment & Plan: Ceftriaxone. Culture with klebsiella, follow up final. Qualifiers: Qualified Codes: N30.01 - Acute cystitis with hematuria (2) Sepsis Status: Acute Assessment & Plan: Secondary to UTI, lactic acidosis resolved. 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 Started on vancomycin on admission, improving. Recommend looking into fecal transplant given recurrent episodes. 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 (12) DVT prophylaxis Status: Acute Assessment & Plan: Enoxaparin MAYANK DE LEÓN MD Sep 27, 2021 15:33
[2021-09-27 16:00] VITALS: BP 161/80
[2021-09-27 16:34] LABS: POTASSIUM 4.6 MMOL/L (3.6-5.0)
[2021-09-27 16:35] LABS: CALCIUM 8.5 MG/DL (8.5-10.1)
[2021-09-27 16:39] LABS: CREATININE SERUM 0.62 MG/DL (0.60-1.30)
[2021-09-27 19:51] VITALS: BP 177/75
[2021-09-27] MEDS: MIRTAZAPINE 7.5 MG TABLET PO SCH (20:56)
[2021-09-27] MEDS: QUEtiapine 25 MG (SEROquel) TAB IMMEDIATE RELEASE PO SCH (20:57)
[2021-09-28 00:30] VITALS: BP 147/72
[2021-09-28] MEDS: NS IV 1000 ML 1,000 ML IV SCH ×2 (01:00→09:00)
[2021-09-28 04:19] VITALS: BP 131/78
[2021-09-28 06:00] LABS: BASOPHILS % (AUTO) 0 % (0-10); EOSINOPHILS # (AUTO) 0.1 10^3/uL (0.0-0.3); EOSINOPHILS % (AUTO) 1 % (0-10); HEMATOCRIT 30 % (35-52); HEMOGLOBIN 10.5 g/dL (11.5-16.0); LYMPHOCYTES # (AUTO) 1.1 10^3/uL (1.0-4.0); LYMPHOCYTES % (AUTO) 15 % (12-44); MEAN CORPUSCULAR HEMOGLOBIN 31 pg (25-34); MEAN CORPUSCULAR HGB CONC 35 g/dL (32-36); MEAN CORPUSCULAR VOLUME 87 fL (80-99); MEAN PLATELET VOLUME 10.2 fL (9.0-12.2); MONOCYTES # (AUTO) 0.6 10^3/uL (0.0-1.0); MONOCYTES % (AUTO) 8 % (0-12); NEUTROPHILS # (AUTO) 5.2 10^3/uL (1.8-7.8); NEUTROPHILS % (AUTO) 74 % (42-75); PLATELET COUNT 137 10^3/uL (130-400); WHITE BLOOD COUNT 7.1 10^3/uL (4.3-11.0)
[2021-09-28 06:22] LABS: ALBUMIN 3.2 GM/DL (3.2-4.5)
[2021-09-28 06:23] LABS: POTASSIUM 3.6 MMOL/L (3.6-5.0)
[2021-09-28 06:24] LABS: CALCIUM 8.3 MG/DL (8.5-10.1)
[2021-09-28] MEDS: MULTIVIT W/MINERALS TAB (THERAGRAN M) PO SCH (06:24)
[2021-09-28 06:25] LABS: TOTAL PROTEIN 5.4 GM/DL (6.4-8.2)
[2021-09-28 06:27] LABS: BILIRUBIN,TOTAL 0.5 MG/DL (0.1-1.0)
[2021-09-28 06:29] LABS: CREATININE SERUM 0.6 MG/DL (0.60-1.30)
[2021-09-28 07:50] VITALS: BP 177/73
[2021-09-28] MEDS: ASPIRIN E.C. 81 MG (ECOTRIN) TAB PO SCH (08:58)
[2021-09-28] MEDS: ASCORBIC ACID (VIT C) 500 MG TABLET PO SCH (08:58)
[2021-09-28] MEDS: LACTOBACILLUS ACIDOPHILUS (PROBIOTIC) CAPSULE PO SCH (08:58)
[2021-09-28] MEDS: VANCOMYCIN 125 MG CAPSULE PO SCH ×2 (08:58→13:39)
[2021-09-28] MEDS: ENOXAPARIN 40 MG/0.4 ML (LOVENOX) SYR SC SCH (08:58)
[2021-09-28] MEDS: SENNOSIDES 8.6 MG (SENOKOT) TAB PO SCH (08:59)
[2021-09-28] MEDS: DOCUSATE SODIUM 100 MG (COLACE) CAP PO SCH (09:00)
[2021-09-28] MEDS: GABAPENTIN 600 MG (NEURONTIN) TAB PO SCH ×2 (09:01→13:40)
[2021-09-28] MEDS: DICYCLOMINE 20 MG TABLET PO SCH ×2 (09:01→13:41)
[2021-09-28] MEDS: buPROPion 75 MG (WELLBUTRIN) TAB PO SCH (09:02)
[2021-09-28] MEDS: TACROLIMUS 1 MG (PROGRAF) CAP NON-FORMULARY PO SCH (09:02)
[2021-09-28] MEDS: LIVALO 2 MG PO SCH (09:03)
[2021-09-28] MEDS: MYCOPHENOLIC 180 MG PO SCH (09:03)
[2021-09-28] MEDS: ALOSETRON PO SCH (09:04)
[2021-09-28] MEDS: DORZOLAMIDE 2% 10 ML BTL (TRUSOPT) OU SCH (09:05)
[2021-09-28] MEDS: OPTHALMIC EMULSION OU SCH (09:05)
[2021-09-28] MEDS: RESTASIS OU SCH (09:05)
[2021-09-28] MEDS: cefTRIAXone 1 GM PRE-MIX 50 ML IV SCH (09:08)
--- NOTE | 2021-09-28 09:18 | Occ Therapy Progress Note ---
Therapy Progress Note Pt discharge from OT services. Pt refused OT services at this time. Pt also requested for no more OT services due to stating not needing any help in her ADLs because she is going home. HERNANDEZ stated that pt could also work on BUE strengthening activities if not needing help in ADLs. Pt declined services and stated that when she goes home and if thinks she needs them when she gets home, she can call someone to get OT services set up. Pt in recliner with call light in reach and all needs met. OT discharge Heather Lainez MYRON Sep 28, 2021 09:18
--- NOTE | 2021-09-28 10:17 | Physical Therapy Daily Note ---
PT Daily Note-Current Subjective Patient's was in room with her, had no new complaints today. She consented treat. Nurse stated to utilize C diff precautions. Patient had to use the bathroom and was helped by nursing and PT Pain Location: No Pain Reported Mental Status Patient Orientation: Person, Place, Time, Situation Attachments: IV Transfers SCALE: Activities may be completed with or without assistive devices. 4-Irfsuuzvvy-skttgxh completes the activity by him/herself with no assistance from a helper. 5-Set-up or Clean-up Assistance-helper sets up or cleans up; patient completes activity. [place] assists only prior to or following the activity. 4-Supervision or Touching Assistance-helper provides verbal cues and/or touching/steadying and/or contact guard assistance as patient completes activity. Assistance may be provided throughout the activity or intermittently. 3-Partial/Moderate Assistance-helper does LESS THAN HALF the effort. [place] lif ts, holds or supports trunk or limbs, but provides less than half the effort. 2-Substantial/Maximal Assistance-helper does MORE THAN HALF the effort. [place] lifts or holds trunk or limbs and provides more than half the effort. 1-Idruztaow-znrehf does ALL the effort. Patient does none of the effort to complete the activity. Or, the assistance of 2 or more helpers is required for the patient to complete the activity. If activity was not attempted, code reason: 7-Patient Refused. 9-Not Applicable-not attempted and the patient did not perform the activity before the current illness, exacerbation or injury. 10-Not Attempted due to Environmental Limitations-(lack of equipment, weather restraints, etc.). 88-Not Attempted due to Medical Conditions or Safety Concerns. Sit to Lying (QC): 4 (SBA) Sit to Stand (QC): 4 (SBA) Weight Bearing Right Lower Extremity: Right Weight Bearing/Tolerated Left Lower Extremity: Left Weight Bearing/Tolerated Gait Training Does the Patient Walk?: Yes Distance: 90', 90' Walk 10 feet (QC): 4 (SBA) Walk 50 ft with 2 Turns(QC): 4 (SBA) Gait Assistive Device: FWW Treatments Ambulation, transfers Assessment Current Status: Good Progress Patient had strength and balance with ambulation using a FWW and SBA, and could navigate around her room easily. Patient could tolerate about 90' of walking with multiple turns before needing a rest break. patient was left in chair with call light, tray, and all needs met. PT Residential Goals Terrazzo Installer Goals PT Terrazzo Installer Goals Time Frame: Oct 08, 2021 Roll Left & Right (QC): 5 Sit to Lying (QC): 5 Lying-Sitting on Side/Bed(QC): 5 Sit to Stand (QC): 5 Chair/Tvw-iq-Pqtvi Xfer(QC): 5 Toilet Transfer (QC): 5 Walk 10 feet (QC): 5 Walk 50ft with 2 Turns (QC): 5 Walk 150 ft (QC): 5 PT Plan Problem List Problem List: Activity Tolerance, Functional Strength, Safety, Balance, Gait, Transfer, Bed Mobility, ROM Treatment/Plan Treatment Plan: Continue Plan of Care Treatment Plan: Bed Mobility, Education, Functional Activity Jose, Functional Strength, Gait, Safety, Therapeutic Exercise, Transfers Treatment Duration: Oct 08, 2021 Frequency: 6 times per week Estimated Hrs Per Day: .25 hour per day Safety Risks/Education Patient Education: Gait Training, Transfer Techniques, Correct Positioning, Safety Issues Teaching Recipient: Patient Teaching Methods: Discussion Response to Teaching: Verbalize Understanding Time/GCodes Time In: 929 Time Out: 0945 Total Billed Treatment Time: 15 Total Billed Treatment 1 visit FA 15min RONNIE GIL PT Sep 28, 2021 10:17
[2021-09-28 12:45] VITALS: BP 165/82
[2021-09-28] MEDS ORDERED: VANC125C5 PO (14:40)
--- NOTE | 2021-09-28 14:41 | Discharge Summary ---
Discharge Summary Hospital Course Problems/Diagnosis: (1) UTI (urinary tract infection) Status: Acute Assessment & Plan: Ceftriaxone. Culture with klebsiella, resistant only to ampicillin, discharged with macrobid. Qualifiers: Qualified Codes: N30.01 - Acute cystitis with hematuria (2) Sepsis Status: Resolved Resolution Date/Time: 09/28/21 @ 14:55 Assessment & Plan: Secondary to UTI, lactic acidosis resolved. 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 Started on vancomycin on admission, improving, complete course outpatient. Recommend looking into fecal transplant given recurrent episodes. 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 (10) Renal transplant recipient Status: Chronic (11) Hypokalemia Status: Resolved Resolution Date/Time: 09/28/21 @ 14:56 Assessment & Plan: Due to diarrhea, replaced Hospital Course Date of Admission: Sep 25, 2021 at 06:29 Admission Diagnosis : Family Physician/Provider: Jori Guerra DO Date of Discharge: 09/28/21 Discharge Diagnosis: See problem list Hospital Course: See problem list Labs and Pending Lab Test: Laboratory Tests 09/27/21 16:16: Sodium Level 139, Potassium Level 4.6, Chloride Level 112H, Carbon Dioxide Level 16L, Anion Gap 11, Blood Urea Nitrogen 4L, Creatinine 0.62, Estimat Glomerular Filtration Rate 95, BUN/Creatinine Ratio 6, Glucose Level 84, Calcium Level 8.5 09/28/21 05:47: Sodium Level 139, Potassium Level 3.6, Chloride Level 113H, Carbon Dioxide Level 14L, Anion Gap 12, Blood Urea Nitrogen 3L, Creatinine 0.60, Estimat Glomerular Filtration Rate 96, BUN/Creatinine Ratio 5, Glucose Level 94, Calcium Level 8.3L , White Blood Count 7.1, Red Blood Count 3.44L, Hemoglobin 10.5L, Hematocrit 30L , Mean Corpuscular Volume 87, Mean Corpuscular Hemoglobin 31, Mean Corpuscular Hemoglobin Concent 35, Red Cell Distribution Width 13.1, Platelet Count 137, Mean Platelet Volume 10.2, Immature Granulocyte % (Auto) 1, Neutrophils (%) (Auto) 74, Lymphocytes (%) (Auto) 15, Monocytes (%) (Auto) 8, Eosinophils (%) (Auto) 1, Basophils (%) (Auto) 0, Neutrophils # (Auto) 5.2, Lymphocytes # (Auto) 1.1, Monocytes # (Auto) 0.6, Eosinophils # (Auto) 0.1, Basophils # (Auto) 0.0, Immature Granulocyte # (Auto) 0.1, Corrected Calcium 8.9, Total Bilirubin 0.5, Aspartate Amino Transf (AST/SGOT) 13, Alanine Aminotransferase (ALT/SGPT) 8, Al kaline Phosphatase 50, Total Protein 5.4L, Albumin 3.2 Microbiology 09/25/21 C. 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) Home Meds Active Macrobid 100 mg Capsule (Nitrofurantoin Monohyd/M-Cryst) 100 Mg Capsule 1 Tab PO BID Vancomycin HCl 125 Mg Capsule 125 Mg PO QID 7 Days Reported Vitamin D3 (Cholecalciferol (Vitamin D3)) 125 Mcg Capsule 125 Mcg PO DAILY Clonazepam 0.5 Mg Tablet 0.25 Mg PO BID TAKES 1/2 OF (0.5MG) TAB Livalo (Pitavastatin Calcium) 2 Mg Tablet 2 Mg PO DAILY Mycophenolic Acid (Mycophenolate Sodium) 180 Mg Tablet.dr 180 Mg PO BID Multivitamin 1 Each Tablet 1 Each PO DAILY Bupropion HCl 75 Mg Tablet 75 Mg PO DAILY Quetiapine Fumarate 25 Mg Tablet 25 Mg PO 2100 Cranberry (Cranberry Fruit) 450 Mg Tablet 450 Mg PO BID Mirtazapine 7.5 Mg Tablet 7.5 Mg PO DAILY Lotronex (Alosetron HCl) 0.5 Mg Tab 0.5 Mg PO BID Restasis (Cyclosporine) 1 Each Droperette 1 Each OD BID Dicyclomine HCl 20 Mg Tablet 10 Mg PO BID TAKES 1/2 OF A 20MG TAB Gabapentin 600 Mg Tablet 600 Mg PO TID Flonase Allergy Relief (Fluticasone Propionate) 9.9 Ml [place].susp 2 [place] NS DAILY PRN Azopt (Brinzolamide) 10 Ml Btl 1 Drop OD DAILY Vitamin C (Ascorbate Calcium) 500 Mg Tablet 500 Mg PO DAILY Adult Low Dose Aspirin EC (Aspirin) 81 Mg Tablet.dr 81 Mg PO DAILY Prograf (Tacrolimus) 1 Mg Capsule 1 Mg PO BID Probiotic (L.acidoph & Paracasei,B.lactis) 1 Each Capsule 1 Cap PO DAILY Imodium Multi-Symptom Rel Cplt (Loperamide HCl/Simethicone) 1 Each Tablet 1 Tab PO DAILY PRN Assessment/Pt DC Instructions Follow up with primary physician within a week of discharge. Discharge Diet: No Restrictions Activity as Tolerated: Yes Discharge Physical Examination Allergies: Coded Allergies: codeine (Unverified Allergy, Unknown, 02/12/17) morphine (Verified Allergy, Unknown, NAUSEA, 02/12/17) General Appearance: No Apparent Distress, WD/WN Gastrointestinal: Normal Bowel Sounds, Non Tender, Soft Skin: Normal Color, Warm/Dry Neurologic/Psychiatric: Alert, Normal Mood/Affect MAYANK DE LEÓN MD Sep 28, 2021 14:41
[2021-09-28 14:54] VITALS: BP 165/82
[2021-09-28] MEDS ORDERED: NITR-65 PO (14:55)
--- NOTE | 2021-09-29 16:06 | Physician Query Clarification ---
PQ-CHF Specificity Admission Date: Sep 25, 2021 at 06:29 Discharge Date: Sep 28, 2021 at 14:50 The medical record reflects the following clinical scenario: History/Risk Factors: HYPERTENSION, CHF LISTED ON ED RECORD Clinical Findings: SEPSIS, HTN, DM Treatment: Question: Can you further specify the acuity &/or type of CHF per the clinical indicators above? Please document a response in the Progress Notes or Discharge Summary. 1. Acuity: Acute, Chronic or Acute on Chronic 2. Type: Systolic, Diastolic or Systolic & Diastolic 3. Unspecified: CHF cannot be further specified regarding type or acuity 4. Other, with explanation of clinical findings 5. Clinically undetermined, no explanation for clinical findings PHYSICIAN RESPONSE Acuity: Clinically undetermined Type: Clinically undetermined Please remember a lack of response to the above will prompt a phone page by CDI/Coding staff. In responding to this query, please exercise your independent professional judgment. The purpose of this communication is to more accurately reflect the complexity of your patients condition. The fact that a question is asked does not imply that any particular answer is desired or expected. Thank you for your timely response to this clarification. Requestors name: [ ] Phone # [ ] THIS PHYSICIAN QUERY FORM IS A PERMANENT PART OF THE MEDICAL RECORD ASHLY WELLER Sep 29, 2021 16:06 JOSEPH DRIVER DO Sep 29, 2021 20:33
[2021-10-01] MEDS ORDERED: ACHD5005 PO (16:52)
[2021-10-01] MEDS ORDERED: HYOS0.1283 SL (16:52)
== END 2021-09-28 14:50 | disposition home or self-care (01) | DRG 872 ==
LOC: EDUNIT# 04:08 → ER 04:11 → 4TH 06:29
PROVIDERS: ADMIT Internal Medicine; ATTEND Family Medicine
PROC: 8E0ZXY6 Isolation (ICD-10-PCS; principal; 2021-09-25)
DX: A41.59 Other Gram-negative sepsis (principal); N30.01 Acute cystitis with hematuria; Z94.0 Kidney transplant status; A04.71 Enterocolitis due to Clostridium difficile, recurrent; E87.2 Acidosis; N25.81 Secondary hyperparathyroidism of renal origin; G20 Parkinson's disease; R53.1 Weakness; K21.9 Gastro-esophageal reflux disease without esophagitis; E78.5 Hyperlipidemia, unspecified; E87.6 Hypokalemia; E78.00 Pure hypercholesterolemia, unspecified; M19.90 Unspecified osteoarthritis, unspecified site; H40.9 Unspecified glaucoma; E11.43 Type 2 diabetes mellitus with diabetic autonomic (poly)neuropathy; K31.84 Gastroparesis; I48.0 Paroxysmal atrial fibrillation; H26.9 Unspecified cataract; I11.0 Hypertensive heart disease with heart failure; I50.9 Heart failure, unspecified; R29.6 Repeated falls; Z96.21 Cochlear implant status; Z97.4 Presence of external hearing-aid; Z88.5 Allergy status to narcotic agent; Z95.2 Presence of prosthetic heart valve; Z90.5 Acquired absence of kidney; Z79.899 Other long term (current) drug therapy; Z79.82 Long term (current) use of aspirin
CPT/HCPCS: 36415; 51701; 71045; 80048; 80053; 81000; 83605; 84145; 85007; 85025; 85027; 85652; 86141; 87015; 87040; 87045; 87046; 87077; 87088; 87186; 87324; 87449; 87899; 89055; 93041; 94760

== ENCOUNTER 2021-10-01 14:20 | Emergency (ER) | payer MEDICARE ==
[~2021-10-01] VITALS: Ht 154 cm; Wt 58.0 kg
[~2021-10-01 14:20] MED LIST changes: +CHOL500050 PO; +MYCO180T3 PO; +Vitamin d3 PO
[2021-10-01 14:59] LABS: BASOPHILS % (AUTO) 1 % (0-10); EOSINOPHILS # (AUTO) 0.2 10^3/uL (0.0-0.3); EOSINOPHILS % (AUTO) 3 % (0-10); HEMATOCRIT 33 % (35-52); HEMOGLOBIN 11.6 g/dL (11.5-16.0); LYMPHOCYTES # (AUTO) 1.7 10^3/uL (1.0-4.0); LYMPHOCYTES % (AUTO) 31 % (12-44); MEAN CORPUSCULAR HEMOGLOBIN 30 pg (25-34); MEAN CORPUSCULAR HGB CONC 35 g/dL (32-36); MEAN CORPUSCULAR VOLUME 87 fL (80-99); MEAN PLATELET VOLUME 10.4 fL (9.0-12.2); MONOCYTES # (AUTO) 0.5 10^3/uL (0.0-1.0); MONOCYTES % (AUTO) 9 % (0-12); NEUTROPHILS % (AUTO) 55 % (42-75); PLATELET COUNT 225 10^3/uL (130-400); WHITE BLOOD COUNT 5.4 10^3/uL (4.3-11.0)
[2021-10-01] MEDS ORDERED: HYOSCYAMINE 0.125 MG (LEVSIN) TAB SL ONE (15:00)
[2021-10-01] MEDS ORDERED: fentaNYL INJ 100 MCG/2 ML AMP IVP ONE (15:00)
[2021-10-01 15:03] LABS: POTASSIUM 3.4 MMOL/L (3.6-5.0)
[2021-10-01 15:05] LABS: CALCIUM 9.1 MG/DL (8.5-10.1)
[2021-10-01 15:06] LABS: TOTAL PROTEIN 6.7 GM/DL (6.4-8.2)
[2021-10-01 15:08] LABS: BILIRUBIN,TOTAL 0.5 MG/DL (0.1-1.0)
[2021-10-01 15:10] LABS: CREATININE SERUM 0.78 MG/DL (0.60-1.30)
[2021-10-01 15:13] LABS: MAGNESIUM 1.4 MG/DL (1.6-2.4)
[2021-10-01] MEDS ORDERED: MAGNESIUM 1 GM/100 ML IVPB 100 ML IV ONE (15:45)
[2021-10-01 16:45] VITALS: BP 145/65
--- NOTE | 2021-10-01 16:48 | ED GI ---
General Chief Complaint: Abdominal/GI Problems Stated Complaint: DIARRHEA Nursing Triage Note: patient reports diagnosed with c diff. discharged from hospital sunday. states abdominal pain and soft stool started last night. patient weak. Source of Information: Patient Exam Limitations: No Limitations History of Present Illness Date Seen by Provider: Oct 01, 2021 Time Seen by Provider: 04:42 Initial Comments This is 71-year-old woman presents to the emergency room with complaints of severe lower abdominal pain and intense cramping. She has had 2 soft stools today but denies any hematochezia. She has had some dark black stools. She was recently admitted for treatment of C. difficile. She is taking vancomycin and probiotics for outpatient therapy. She has had multiple infections with C. difficile in the past. She states her pain today feels unusually intense for C. difficile related pain. She denies any fever. Allergies and Home Medications Allergies Coded Allergies: codeine (Unverified Allergy, Unknown, 02/12/17) morphine (Verified Allergy, Unknown, NAUSEA, 02/12/17) Patient Home Medication List Home Medication List Reviewed: Yes Alosetron HCl (Lotronex) 0.5 Mg Tab, 0.5 MG PO BID, (Reported) Entered as Reported by: MARISEL BARRY on 07/31/20 0530 Ascorbate Calcium (Vitamin C) 500 Mg Tablet, 500 MG PO DAILY, (Reported) Entered as Reported by: ANUSHKA LUNA on 08/29/16 0947 Aspirin (Adult Low Dose Aspirin EC) 81 Mg Tablet.dr, 81 MG PO DAILY, (Reported) Entered as Reported by: SANTIAGO VILLARERAL on 08/28/16 1842 Brinzolamide (Azopt) 10 Ml Btl, 1 DROP OD DAILY, (Reported) Entered as Reported by: ANUSHKA LUNA on 08/29/16 0947 Bupropion HCl (Bupropion HCl) 75 Mg Tablet, 75 MG PO DAILY, (Reported) Entered as Reported by: MALDONADO LAN on 11/18/20 1131 Cholecalciferol (Vitamin D3) (Vitamin D3) 125 Mcg Capsule, 125 MCG PO DAILY, (Reported) Entered as Reported by: SERG FRIED on 09/26/21 1103 Clonazepam (Clonazepam) 0.5 Mg Tablet, 0.25 MG PO BID, (Reported) Entered as Reported by: SERG FRIED on 09/26/21 1059 Cranberry Fruit (Cranberry) 450 Mg Tablet, 450 MG PO BID, (Reported) Entered as Reported by: MALDONADO LAN on 09/02/20 1517 Cyclosporine (Restasis) 1 Each Droperette, 1 EACH OD BID, (Reported) Entered as Reported by: MALDONADO LAN on 03/23/20 1521 Dicyclomine HCl (Dicyclomine HCl) 20 Mg Tablet, 10 MG PO BID, (Reported) Entered as Reported by: MALDONADO LAN on 03/23/20 1518 Fluticasone Propionate (Flonase Allergy Relief) 9.9 Ml [place].susp, 2 [place] DAILY PRN for CONGESTION, (Reported) Entered as Reported by: MALDONADO LAN on 03/23/20 151 Gabapentin (Gabapentin) 600 Mg Tablet, 600 MG PO TID, (Reported) Entered as Reported by: MALDONADO LAN on 03/23/20 1518 Hydrocodone/Acetaminophen (Hydrocodone-Acetamin 5-325 mg) 1 Each Tablet, 1 TAB PO Q4H PRN for PAIN-MODERATE (5-7) Prescribed by: CIERA MATTHEWS on 10/01/211757 Hyoscyamine Sulfate (Levsin-Sl) 0.125 Mg Tab.subl, 1-2 TAB SL Q4H PRN for CRAMPS Prescribed by: CIERA MATTHEWS on 10/01/211757 L.acidoph & Paracasei,B.lactis (Probiotic) 1 Each Capsule, 1 CAP PO DAILY, (Reported) Entered as Reported by: HUSSEIN LOPEZ on 04/02/15 032 Loperamide HCl/Simethicone (Imodium Multi-Symptom Rel Cplt) 1 Each Tablet, 1 TAB PO DAILY PRN for DIARRHEA, (Reported) Entered as Reported by: HUSSEIN LOPEZ on 04/02/15 032 Mirtazapine (Mirtazapine) 7.5 Mg Tablet, 7.5 MG PO DAILY, (Reported) Entered as Reported by: MARISEL BARRY on 07/31/20 0530 Multivitamin (Multivitamin) 1 Each Tablet, 1 EACH PO DAILY, (Reported) Entered as Reported by: MALDONADO LAN on 11/18/20 1131 Mycophenolate Sodium (Mycophenolic Acid) 180 Mg Tablet.dr, 180 MG PO BID, (Repo rted) Entered as Reported by: SERG FRIED on 09/26/21 1048 Nitrofurantoin Monohyd/M-Cryst (Macrobid 100 mg Capsule) 100 Mg Capsule, 1 TAB PO BID Prescribed by: MAYANK DE LEÓN on 09/28/21 1455 Pitavastatin Calcium (Livalo) 2 Mg Tablet, 2 MG PO DAILY, (Reported) Entered as Reported by: SERG FRIED on 09/26/21 1052 Quetiapine Fumarate (Quetiapine Fumarate) 25 Mg Tablet, 25 MG PO 2100, (Reported) Entered as Reported by: MALDONADO LAN on 11/18/20 1131 Tacrolimus (Prograf) 1 Mg Capsule, 1 MG PO BID, (Reported) Entered as Reported by: HUSSEIN LOPEZ on 04/02/15 0327 Vancomycin HCl (Vancomycin HCl) 125 Mg Capsule, 125 MG PO QID Prescribed by: MAYANK DE LEÓN on 09/28/21 1440 Discontinued Medications Cefdinir (Cefdinir) 300 Mg Capsule, 300 MG PO BID Discontinued Reason: No Longer Taking Prescribed by: JOSEPH DRIVER on 08/10/21 1217 Cholestyramine/Aspartame (Prevalite Packet) 4 Gm Powd.pack, 4 GM PO TID Discontinued Reason: No Longer Taking Prescribed by: JOSEPH DRIVER on 08/10/21 1217 Folic Acid/Vitamin B Comp W-C (Nephro-Rodrick Tablet) 0.8 Mg Tablet, 0.8 MG PO DAILY, (Reported) Discontinued Reason: No Longer Taking Entered as Reported by: MALDONADO LAN on 08/02/20 1401 Pitavastatin Calcium (Livalo) 1 Mg Tablet, 1 MG PO DAILY, (Reported) Discontinued Reason: Prescription changed Entered as Reported by: SERG FRIED on 08/08/21 1135 Vancomycin HCl (Vancomycin HCl) 125 Mg Capsule, 125 MG PO QID Discontinued Reason: No Longer Taking Prescribed by: JOSEPH DRIVER on 08/10/21 1217 Review of Systems Review of Systems Constitutional: no symptoms reported EENTM: No Symptoms Reported Respiratory: No Symptoms Reported Cardiovascular: No Symptoms Reported Gastrointestinal: See HPI Genitourinary: No Symptoms Reported Musculoskeletal: no symptoms reported Skin: no symptoms reported Psychiatric/Neurological: No Symptoms Reported Endocrine: No Symptoms Reported Hematologic/Lymphatic: No Symptoms Reported Past Gtgtfkm-Kqbxtv-Nqnidp Hx Patient Social History Tobacco Use?: No Use of E-Cig and/or Vaping dev: No Substance use?: No Alcohol Use?: No Pt feels they are or have been: No Immunizations Up To Date Tetanus Booster (TDap): Unknown PED Vaccines UTD: No First/Initial COVID19 Vaccinat: 08/08 Second COVID19 Vaccination Lg: 09/05 Third COVID19 Vaccination Date: 03/08 Seasonal Allergies Seasonal Allergies: Yes Past Medical History Surgery/Hospitalization HX: Atificial heart valve Surgeries: Yes (COCHLEAR IMPLANT, CARDIAC ABLATION, AORTIC VALVE, KIDNEY TRANS PLANT) Appendectomy, Cardiac, Dialysis, Ear Surgery, Eye Surgery, Hysterectomy, Kidney Transplant, Nephrectomy, Oophorectomy, Orthopedic, Renal, Tonsillectomy, Valve Replacement, Vascular Surgery Respiratory: Yes Pneumonia Currently Using CPAP: No Currently Using BIPAP: No Cardiac: Yes ( CHF; AORTIC PIG VALVE FOR AORTIC STENOSIS ; PAROXYSMAL ATRIAL FIB. 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, Menopausal Sexually Transmitted Disease: No HIV/AIDS: No Genitourinary: Yes (BILATERAL NEPHRECTOMY AND RENAL TRANSPLANT, dialysis prior to transplant) Kidney Infection, Bladder Infection, Renal Failure, UTI-Chronic Gastrointestinal: Yes (H.PYLORI; GASTROPARESIS) Colitis, Gastroesophageal Reflux, Chronic Diarrhea, Polyps, C-Diff, Irritable Bowel Musculoskeletal: Yes (FREQUENT FALLS/USES WALKER;CHRONIC GENERALIZED WEAKNESS) Degenerate Disk Disease, Arthritis, Chronic Back Pain Endocrine: Yes Parathyroid Disease, Diabetes, Non-Insulin dep HEENT: Yes (LEFT EYE REMOVED DUE TO UVEITIS; RIGHT COCHLEAR IMPLANT) Cataract, Glaucoma Hearing Impairment: Hard of Hearing, Hearing Aide Left Cancer: Yes Kidney Did You Recieve Any Treatments: Yes What Type of Treatment Did You: Surgical Intervention Psychosocial: Yes Anxiety, Depression Integumentary: No Blood Disorders: No Adverse Reaction/Blood Tranf: No (HAS HAD BLOOD WITH NO REACTION) Family Medical History Alzheimer's disease 19 MOTHER (later in life) Dementia 19 MOTHER No Pertinent Family Hx PAST SURGICAL HISTORY: -LEFT EYE REMOVED/ARTIFICIAL EYE DUE TO UVEITIS -RIGHT COCHLEAR IMPLANT -DIALYSIS SHUNT LEFT ARM--DIALYSIS X 4 YEARS -MULTIPLE REVISIONS OF DIALYSIS AV GRAFT -PERITONEAL DIALYSIS SHUNT -BILATERAL NEPHRECTOMY WITH RENAL TRANSPLANT-IN RLQ OF ABDOMEN--6 YEARS AGO--FOR POLYCYSTIC KIDNEY DISEASE -CARDIAC ABLATION -AORTIC VALVE REPLACEMENT WITH PIG VALVE FOR AORTIC STENOSIS -TONSILLECTOMY -APPENDECTOMY -HYSTERECTOMY/ LATER BSO -CARDIAC CATH 2010--NON-OBSTRUCTIVE DISEASE, NO INTERVENTION -BILATERAL PULMONARY VEIN ABLATION WITH STAPLE AMPTUATION OF LEFT ATRIAL APPENDAGE AT SAME TIME AORTIC VALVE REPLACEMENT -EGD/COLONOSCOPIES/POLYPECTOMIES -EXCISION OF LEFT HIP HEMATOMA 01/2017 [facility] [place]. Physical Exam Vital Signs Vital Signs - First Documented 10/01/21 14:30 Temp 36.2 Pulse 79 Resp 20 B/P (MAP) 157/66 (96) Pulse Ox 99 O2 Delivery Room Air Capillary Refill : Less Than 3 Seconds Height/Weight/BMI Height: 5'1.00" Weight: 127lbs. 1.0oz. [id number]; 24.00 BMI Method:Stated General Appearance: WD/WN, moderate distress HEENT: normal ENT inspection Neck: normal inspection Respiratory: lungs clear, normal breath sounds, no respiratory distress Cardiovascular: regular rate, rhythm, no edema, no murmur Gastrointestinal: normal bowel sounds, soft, tenderness (Mild to moderate lower abdominal tenderness) Extremities: normal inspection, no pedal edema Neurologic/Psychiatric: beef boner II-XII nml as tested, no motor/sensory deficits, alert, normal mood/affect, oriented x 3 Skin: normal color, warm/dry Progress/Results/Core Measures Results/Orders Lab Results Laboratory Tests Test 10/01/21 14:40 Range/Units White Blood Count 5.4 4.3-11.0 10^3/uL Red Blood Count 3.85 3.80-5.11 10^6/uL Hemoglobin 11.6 11.5-16.0 g/dL Hematocrit 33 L 35-52 % Mean Corpuscular Volume 87 80-99 fL Mean Corpuscular Hemoglobin 30 25-34 pg Mean Corpuscular Hemoglobin Concent 35 32-36 g/dL Red Cell Distribution Width 13.2 10.0-14.5 % Platelet Count 225 130-400 10^3/uL Mean Platelet Volume 10.4 9.0-12.2 fL Immature Granulocyte % (Auto) 2 % Neutrophils (%) (Auto) 55 42-75 % Lymphocytes (%) (Auto) 31 12-44 % Monocytes (%) (Auto) 9 0-12 % Eosinophils (%) (Auto) 3 0-10 % Basophils (%) (Auto) 1 0-10 % Neutrophils # (Auto) 3.0 1.8-7.8 10^3/uL Lymphocytes # (Auto) 1.7 1.0-4.0 10^3/uL Monocytes # (Auto) 0.5 0.0-1.0 10^3/uL Eosinophils # (Auto) 0.2 0.0-0.3 10^3/uL Basophils # (Auto) 0.0 0.0-0.1 10^3/uL Immature Granulocyte # (Auto) 0.1 0.0-0.1 10^3/uL Sodium Level 141 135-145 MMOL/L Potassium Level 3.4 L 3.6-5.0 MMOL/L Chloride Level 107 98-107 MMOL/L Carbon Dioxide Level 19 L 21-32 MMOL/L Anion Gap 15 H 5-14 MMOL/L Blood Urea Nitrogen 5 L 7-18 MG/DL Creatinine 0.78 0.60-1.30 MG/DL Estimat Glomerular Filtration Rate 81 BUN/Creatinine Ratio 6 Glucose Level 90 70-105 MG/DL Calcium Level 9.1 8.5-10.1 MG/DL Corrected Calcium 9.1 8.5-10.1 MG/DL Magnesium Level 1.4 L 1.6-2.4 MG/DL Total Bilirubin 0.5 0.1-1.0 MG/DL Aspartate Amino Transf (AST/SGOT) 15 5-34 U/L Alanine Aminotransferase (ALT/SGPT) 8 0-55 U/L Alkaline Phosphatase 60 40-136 U/L C-Reactive Protein High Sensitivity 2.39 H 0.00-0.50 MG/DL Total Protein 6.7 6.4-8.2 GM/DL Albumin 4.0 3.2-4.5 GM/DL My Orders Orders - CIERA LOPEZ MD Cbc With Automated Diff (10/01/21 14:52) Comprehensive Metabolic Panel (10/01/21 14:52) Hs C Reactive Protein (10/01/21 14:52) Magnesium (10/01/21 14:52) Ed Iv/Invasive Line Start (10/01/21 14:52) Fentanyl Inj (Sublimaze Injection) (10/01/21 15:00) Hyoscyamine Sl Tablet (Levsin Sl Tablet) (10/01/21 15:00) Fecal Occult Bedside (10/01/21 14:54) Magnesium 1 Gm/100 Ml Ivpb (Magnesium [place] (10/01/21 15:45) Medications Given in ED Current Medications Medications Dose Ordered Sig/Lizzie Route Start Time Stop Time Status Last Admin Dose Admin Fentanyl Citrate 50 mcg ONCE ONCE IVP 10/01/21 15:00 10/01/21 15:01 DC 10/01/21 15:00 50 MCG Hyoscyamine Sulfate 0.25 mg ONCE ONCE SL 10/01/21 15:00 10/01/21 15:01 DC 10/01/21 14:59 0.25 MG Magnesium Sulfate/ Dextrose 100 ml @ 100 mls/hr ONCE ONCE IV 10/01/21 15:45 10/01/21 16:45 DC 10/01/21 15:46 100 MLS/HR Vital Signs/I&O 10/01/21 10/01/21 14:30 16:45 Temp 36.2 37.0 Pulse 79 65 Resp 20 22 B/P (MAP) 157/66 (96) 145/65 Pulse Ox 99 96 O2 Delivery Room Air Room Air Blood Pressure Mean: 96 Fecal Occult: Negative Progress Progress Note : Progress Note Labs were relatively unremarkable except magnesium was mildly low. A gram of magnesium was infused. Symptoms were treated with fentanyl and Levsin. She had remarkable improvement with these treatments and was very satisfied with her care. Prescriptions were provided. See discharge instructions. Departure Impression Primary Impression: C. difficile colitis Additional Impression: Abdominal cramping Disposition: HOME, SELF-CARE Condition: Improved Departure-Patient Inst. Decision time for Depature: 16:47 Referrals: MALDONADO GARRETT DO (PCP/Family) Primary Care Physician Patient Instructions: Clostridioides difficile Add. Discharge Instructions: Continue treatments as previously prescribed for C. difficile. Drink plenty of clear liquids to stay well-hydrated. Use Levsin (hyoscyamine) as prescribed for bowel cramping and diarrhea. Use hydrocodone as prescribed for pain. Hydrocodone may cause drowsiness so use with caution. Return to the ER if you continue to have severe or worsening symptoms despite following these recommendations. Follow-up with your primary care provider soon as possible. All discharge instructions reviewed with patient and/or family. Voiced understanding. Scripts Hydrocodone/Acetaminophen (Hydrocodone-Acetamin 5-325 mg) 1 Each Tablet 1 TAB PO Q4H PRN for PAIN-MODERATE (5-7), #10 TAB Prov: CIERA LOPEZ MD 10/01/21 Hyoscyamine Sulfate (Levsin-Sl) 0.125 Mg Tab.subl 1-2 TAB SL Q4H PRN for CRAMPS, #10 TAB 1 Refill Prov: CIERA LOPEZ MD 10/01/21 Copy Copies To 1: MALDONADO GARRETT JOSHUA T MD Oct 01, 2021 16:48
[2021-10-01] MEDS ORDERED: HYOS0.1283 SL ×2 (16:52→17:58)
[2021-10-01] MEDS ORDERED: ACHD5005 PO ×2 (16:52→17:58)
== END 2021-10-01 16:50 | disposition home or self-care (01) ==
LOC: EDUNIT# 14:20 → ER 14:22
DX: A04.72 Enterocolitis due to Clostridium difficile, not specified as recurrent (principal); E11.9 Type 2 diabetes mellitus without complications
CPT/HCPCS: 36415; 80053; 82274; 83735; 85025; 86141

== ENCOUNTER 2022-07-15 09:43 | Emergency (ER) | payer MEDICARE ==
[~2022-07-15] VITALS: Ht 152.4 cm; Wt 63.5 kg
[~2022-07-15 09:43] MED LIST changes: +ACHD5005 PO; +BRIN10DR6 OD; +HYOS0.1283 SL
[2022-07-15] MEDS ORDERED: LACTATED RINGERS 1,000 ML IV ONE (10:15)
[2022-07-15] MEDS ORDERED: HYOSCYAMINE 0.125 MG (LEVSIN) TAB SL ONE (10:15)
[2022-07-15 10:17] LABS: BILIRUBIN,URINE NEGATIVE (NEGATIVE); CLARITY,URINE CLEAR; COLOR,URINE YELLOW; GLUCOSE, URINE (UA) NEGATIVE (NEGATIVE); KETONES,URINE NEGATIVE (NEGATIVE); LEUKOCYTE ESTERASE ,URINE TRACE (NEGATIVE); NITRITE,URINE NEGATIVE (NEGATIVE); PH,URINE 7.5 (5-9); PROTEIN,URINE NEGATIVE (NEGATIVE)
[2022-07-15 10:27] LABS: BACTERIA,URINE TRACE /HPF
[2022-07-15] MEDS ORDERED: LACTATED RINGERS 0 ML IV ONE (10:29)
[2022-07-15] MEDS ORDERED: HYOSCYAMINE 0.125 MG (LEVSIN) TAB ONE (10:29)
[2022-07-15 10:42] LABS: BASOPHILS % (AUTO) 1 % (0-10); EOSINOPHILS # (AUTO) 0.1 10^3/uL (0.0-0.3); EOSINOPHILS % (AUTO) 1 % (0-10); HEMATOCRIT 42 % (35-52); HEMOGLOBIN 14.6 g/dL (11.5-16.0); LYMPHOCYTES # (AUTO) 1.5 10^3/uL (1.0-4.0); LYMPHOCYTES % (AUTO) 25 % (12-44); MEAN CORPUSCULAR HEMOGLOBIN 29 pg (25-34); MEAN CORPUSCULAR HGB CONC 35 g/dL (32-36); MEAN CORPUSCULAR VOLUME 84 fL (80-99); MEAN PLATELET VOLUME 9.9 fL (9.0-12.2); MONOCYTES # (AUTO) 0.5 10^3/uL (0.0-1.0); MONOCYTES % (AUTO) 8 % (0-12); NEUTROPHILS # (AUTO) 3.9 10^3/uL (1.8-7.8); NEUTROPHILS % (AUTO) 64 % (42-75); PLATELET COUNT 192 10^3/uL (130-400); WHITE BLOOD COUNT 6.1 10^3/uL (4.3-11.0)
[2022-07-15 10:51] LABS: ALBUMIN 4.6 GM/DL (3.2-4.5); CHLORIDE 106 MMOL/L (98-107); SODIUM 140 MMOL/L (135-145)
[2022-07-15 10:52] LABS: CALCIUM 9.9 MG/DL (8.5-10.1)
[2022-07-15 10:54] LABS: GLUCOSE 96 MG/DL (70-105); TOTAL PROTEIN 7.6 GM/DL (6.4-8.2)
[2022-07-15 10:55] LABS: BILIRUBIN,TOTAL 0.7 MG/DL (0.1-1.0); CARBON DIOXIDE 21 MMOL/L (21-32)
[2022-07-15 10:57] LABS: ALKALINE PHOSPHATASE 72 U/L (40-136); CREATININE SERUM 0.82 MG/DL (0.60-1.30); GFR ESTIMATED 76
[2022-07-15 10:58] LABS: BUN/CREATININE RATIO 12
[2022-07-15 11:00] LABS: ALANINE AMINOTRANSFERASE 15 U/L (0-55)
[2022-07-15] MEDS ORDERED: LORazepam 0.5 MG (ATIVAN) TABLET BC ONE (11:00)
--- NOTE | 2022-07-15 12:12 | ED Abdominal Pain ---
General Chief Complaint: Abdominal/GI Problems Stated Complaint: [facility]: patient arrives this am with c/o mild abdominal pain and an wpisode of diarrhea this am resulting in incontenence. patient states she normally has one movement per day and it is typically soft without form. states she is on preventitive vancomycin for hx of c-diff. denies nausea or vomiting. denies frequency or pain with urination. Source of Information: Patient, Old Records Exam Limitations: No Limitations History of Present Illness Date Seen by Provider: Jul 15, 2022 Allergies and Home Medications Allergies Coded Allergies: codeine (Unverified Allergy, Unknown, 02/12/17) morphine (Verified Allergy, Unknown, NAUSEA, 02/12/17) Patient Home Medication List Alosetron HCl (Lotronex) 0.5 Mg Tab, 0.5 MG PO BID, (Reported) Entered as Reported by: MARISEL BARRY on 07/31/20 0530 Ascorbate Calcium (Vitamin C) 500 Mg Tablet, 500 MG PO DAILY, (Reported) Entered as Reported by: ANUSHKA LUNA on 08/29/16 0947 Aspirin (Adult Low Dose Aspirin EC) 81 Mg Tablet.dr, 81 MG PO DAILY, (Reported) Entered as Reported by: SANTIAGO VILLARREAL on 08/28/16 1842 Brinzolamide (Azopt) 10 Ml Btl, 1 DROP OD DAILY, (Reported) Entered as Reported by: ANUSHKA LUNA on 08/29/16 0947 Bupropion HCl (Bupropion HCl) 75 Mg Tablet, 75 MG PO DAILY, (Reported) Entered as Reported by: MALDONADO LAN on 11/18/20 1131 Cholecalciferol (Vitamin D3) (Vitamin D3) 125 Mcg Capsule, 125 MCG PO DAILY, (Reported) Entered as Reported by: SERG FRIED on 09/26/21 1103 Clonazepam (Clonazepam) 0.5 Mg Tablet, 0.25 MG PO BID, (Reported) Entered as Reported by: SERG FRIED on 09/26/21 1059 Cranberry Fruit (Cranberry) 450 Mg Tablet, 450 MG PO BID, (Reported) Entered as Reported by: MALDONADO LAN on 09/02/20 1517 Cyclosporine (Restasis) 1 Each Droperette, 1 EACH OD BID, (Reported) Entered as Reported by: MALDONADO LAN on 03/23/20 1521 Dicyclomine HCl (Dicyclomine HCl) 20 Mg Tablet, 10 MG PO BID, (Reported) Entered as Reported by: MALDONADO LAN on 03/23/20 1518 Fluticasone Propionate (Flonase Allergy Relief) 9.9 Ml [place].susp, 2 SPRAY NS DAILY PRN for CONGESTION, (Reported) Entered as Reported by: MALDONADO LAN on 03/23/20 1518 Gabapentin (Gabapentin) 600 Mg Tablet, 600 MG PO TID, (Reported) Entered as Reported by: MALDONADO LAN on 03/23/20 1518 Hydrocodone/Acetaminophen (Hydrocodone-Acetamin 5-325 mg) 1 Each Tablet, 1 TAB PO Q4H PRN for PAIN-MODERATE (5-7) Prescribed by: CIERA MATTHEWS on 10/01/211757 Hyoscyamine Sulfate (Levsin-Sl) 0.125 Mg Tab.subl, 1-2 TAB SL Q4H PRN for CRAMPS Prescribed by: CIERA MATTHEWS on 10/01/211757 Hyoscyamine Sulfate (Levsin-Sl) 0.125 Mg Tab.subl, 1-2 MG SL Q4H PRN for CRAMPS Prescribed by: CIERA MATTHEWS on 07/15/22 1239 L.acidoph & Paracasei,B.lactis (Probiotic) 1 Each Capsule, 1 CAP PO DAILY, (Reported) Entered as Reported by: HUSSEIN LOPEZ on 04/02/15 0327 Loperamide HCl/Simethicone (Imodium Multi-Symptom Rel Cplt) 1 Each Tablet, 1 TAB PO DAILY PRN for DIARRHEA, (Reported) Entered as Reported by: HUSSEIN LOPEZ on 04/02/15 0324 Mirtazapine (Mirtazapine) 7.5 Mg Tablet, 7.5 MG PO DAILY, (Reported) Entered as Reported by: MARISEL BARRY on 07/31/20 0530 Multivitamin (Multivitamin) 1 Each Tablet, 1 EACH PO DAILY, (Reported) Entered as Reported by: MALDONADO LAN on 11/18/20 1131 Mycophenolate Sodium (Mycophenolic Acid) 180 Mg Tablet.dr, 180 MG PO BID, (Reported) Entered as Reported by: SERG FRIED on 09/26/21 1048 Nitrofurantoin Monohyd/M-Cryst (Macrobid 100 mg Capsule) 100 Mg Capsule, 1 TAB PO BID Prescribed by: MAYANK DE LEÓN on 09/28/21 1455 Pitavastatin Calcium (Livalo) 2 Mg Tablet, 2 MG PO DAILY, (Reported) Entered as Reported by: SERG FRIED on 09/26/21 1052 Quetiapine Fumarate (Quetiapine Fumarate) 25 Mg Tablet, 25 MG PO 2100, (Reported) Entered as Reported by: MALDONADO LAN on 11/18/20 1131 Tacrolimus (Prograf) 1 Mg Capsule, 1 MG PO BID, (Reported) Entered as Reported by: HUSSEIN LOPEZ on 04/02/15 0327 Vancomycin HCl (Vancomycin HCl) 125 Mg Capsule, 125 MG PO QID Prescribed by: MAYANK DE LEÓN on 09/28/21 1440 Past Wbssozy-Nqdlax-Uputsc Hx Patient Social History Tobacco Use?: No Use of E-Cig and/or Vaping dev: No Substance use?: No Alcohol Use?: No Pt feels they are or have been: No Immunizations Up To Date Tetanus Booster (TDap): Unknown PED Vaccines UTD: No Influenza Vaccine Up-to-Date: Yes; Up-to-Date First/Initial COVID19 Vaccinat: 08/08 Second COVID19 Vaccination Lg: 09/05 Third COVID19 Vaccination Date: 03/08 Seasonal Allergies Seasonal Allergies: Yes Past Medical History Surgery/Hospitalization HX: Atificial heart valve,Kidney disease, OR, Afib, HTN, frequent UTI fistula on right arm, Kidney Transplant Surgeries: Yes (COCHLEAR IMPLANT, CARDIAC ABLATION, AORTIC VALVE, KIDNEY TRANSPLANT) Appendectomy, Cardiac, Dialysis, Ear Surgery, Eye Surgery, Hysterectomy, Kidney Transplant, Nephrectomy, Oophorectomy, Orthopedic, Renal, Tonsillectomy, Valve Replacement, Vascular Surgery Respiratory: Yes Pneumonia Currently Using CPAP: No Currently Using BIPAP: No Cardiac: Yes ( CHF; AORTIC PIG VALVE FOR AORTIC STENOSIS ; PAROXYSMAL ATRIAL FIB. 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, Menopausal Sexually Transmitted Disease: No HIV/AIDS: No Genitourinary: Yes (BILATERAL NEPHRECTOMY AND RENAL TRANSPLANT, dialysis prior to transplant) Kidney Infection, Bladder Infection, Renal Failure, UTI-Chronic Gastrointestinal: Yes (H.PYLORI; GASTROPARESIS) Colitis, Gastroesophageal Reflux, Chronic Diarrhea, Polyps, C-Diff, Irritable Bowel Musculoskeletal: Yes (FREQUENT FALLS/USES WALKER;CHRONIC GENERALIZED WEAKNESS) Degenerate Disk Disease, Arthritis, Chronic Back Pain Endocrine: Yes Parathyroid Disease, Diabetes, Non-Insulin dep HEENT: Yes (LEFT EYE REMOVED DUE TO UVEITIS; RIGHT COCHLEAR IMPLANT) Cataract, Glaucoma Hearing Impairment: Hard of Hearing, Hearing Aide Left Cancer: Yes Kidney Did You Recieve Any Treatments: Yes What Type of Treatment Did You: Surgical Intervention Psychosocial: Yes Anxiety, Depression Integumentary: No Blood Disorders: No Adverse Reaction/Blood Tranf: No (HAS HAD BLOOD WITH NO REACTION) Family Medical History Alzheimer's disease 19 MOTHER (later in life) Dementia 19 MOTHER No Pertinent Family Hx PAST SURGICAL HISTORY: -LEFT EYE REMOVED/ARTIFICIAL EYE DUE TO UVEITIS -RIGHT COCHLEAR IMPLANT -DIALYSIS SHUNT LEFT ARM--DIALYSIS X 4 YEARS -MULTIPLE REVISIONS OF DIALYSIS AV GRAFT -PERITONEAL DIALYSIS SHUNT -BILATERAL NEPHRECTOMY WITH RENAL TRANSPLANT-IN RLQ OF ABDOMEN--6 YEARS AGO--FOR POLYCYSTIC KIDNEY DISEASE -CARDIAC ABLATION -AORTIC VALVE REPLACEMENT WITH PIG VALVE FOR AORTIC STENOSIS -TONSILLECTOMY -APPENDECTOMY -HYSTERECTOMY/ LATER BSO -CARDIAC CATH 2010--NON-OBSTRUCTIVE DISEASE, NO INTERVENTION -BILATERAL PULMONARY VEIN ABLATION WITH STAPLE AMPTUATION OF LEFT ATRIAL APPENDAGE AT SAME TIME AORTIC VALVE REPLACEMENT -EGD/COLONOSCOPIES/POLYPECTOMIES -EXCISION OF LEFT HIP HEMATOMA 01/2017 [facility] [place]. Physical Exam Vital Signs Vital Signs - First Documented 07/15/22 09:50 Temp 36.0 Pulse 73 Resp 18 B/P (MAP) 152/84 (106) Pulse Ox 100 O2 Delivery Room Air Capillary Refill : Height/Weight/BMI Height: 5'1.00" Weight: 127lbs. 1.0oz. 57.157866im; 27.00 BMI Method:Stated Progress/Results/Core Measures Results/Orders Lab Results Laboratory Tests Test 07/15/22 09:55 07/15/22 10:30 Range/Units Urine Color YELLOW Urine Clarity CLEAR Urine pH 7.5 5-9 Urine Specific [place] 1.010 L 1.016-1.022 Urine Protein NEGATIVE NEGATIVE Urine Glucose (UA) NEGATIVE NEGATIVE Urine Ketones NEGATIVE NEGATIVE Urine Nitrite NEGATIVE NEGATIVE Urine Bilirubin NEGATIVE NEGATIVE Urine Urobilinogen 0.2 < = 1.0 MG/DL Urine Leukocyte Esterase TRACE H NEGATIVE Urine RBC (Auto) NEGATIVE NEGATIVE Urine RBC NONE /HPF Urine WBC 5-10 H /HPF Urine Squamous Epithelial Cells 2-5 /HPF Urine Crystals NONE /LPF Urine Bacteria TRACE /HPF Urine Casts NONE /LPF Urine Mucus NEGATIVE /LPF Urine Culture Indicated YES White Blood Count 6.1 4.3-11.0 10^3/uL Red Blood Count 4.97 3.80-5.11 10^6/uL Hemoglobin 14.6 11.5-16.0 g/dL Hematocrit 42 35-52 % Mean Corpuscular Volume 84 80-99 fL Mean Corpuscular Hemoglobin 29 25-34 pg Mean Corpuscular Hemoglobin Concent 35 32-36 g/dL Red Cell Distribution Width 13.1 10.0-14.5 % Platelet Count 192 130-400 10^3/uL Mean Platelet Volume 9.9 9.0-12.2 fL Immature Granulocyte % (Auto) 0 % Neutrophils (%) (Auto) 64 42-75 % Lymphocytes (%) (Auto) 25 12-44 % Monocytes (%) (Auto) 8 0-12 % Eosinophils (%) (Auto) 1 0-10 % Basophils (%) (Auto) 1 0-10 % Neutrophils # (Auto) 3.9 1.8-7.8 10^3/uL Lymphocytes # (Auto) 1.5 1.0-4.0 10^3/uL Monocytes # (Auto) 0.5 0.0-1.0 10^3/uL Eosinophils # (Auto) 0.1 0.0-0.3 10^3/uL Basophils # (Auto) 0.0 0.0-0.1 10^3/uL Immature Granulocyte # (Auto) 0.0 0.0-0.1 10^3/uL Sodium Level 140 135-145 MMOL/L Potassium Level 4.0 3.6-5.0 MMOL/L Chloride Level 106 98-107 MMOL/L Carbon Dioxide Level 21 21-32 MMOL/L Anion Gap 13 5-14 MMOL/L Blood Urea Nitrogen 10 7-18 MG/DL Creatinine 0.82 0.60-1.30 MG/DL Estimat Glomerular Filtration Rate 76 BUN/Creatinine Ratio 12 Glucose Level 96 70-105 MG/DL Calcium Level 9.9 8.5-10.1 MG/DL Corrected Calcium 8.5-10.1 MG/DL Total Bilirubin 0.7 0.1-1.0 MG/DL Aspartate Amino Transf (AST/SGOT) 13 5-34 U/L Alanine Aminotransferase (ALT/SGPT) 15 0-55 U/L Alkaline Phosphatase 72 40-136 U/L C-Reactive Protein High Sensitivity 0.79 H 0.00-0.50 MG/DL Total Protein 7.6 6.4-8.2 GM/DL Albumin 4.6 H 3.2-4.5 GM/DL My Orders Orders - CIERA LOPEZ MD Ed Iv/Invasive Line Start (07/15/22 10:12) Lactated Ringers (Lr 1000 Ml Iv Solution (07/15/22 10:15) Hyoscyamine Sl Tablet (Levsin Sl Tablet) (07/15/22 10:15) Cbc With Automated Diff (07/15/22 10:12) Comprehensive Metabolic Panel (07/15/22 10:12) Hs C Reactive Protein (07/15/22 10:12) Ua Culture If Indicated (07/15/22 10:12) Urine Culture (07/15/22 09:55) Hyoscyamine Sl Tablet (Levsin Sl Tablet) (07/15/22 10:29) Lactated Ringers (Lr 1000 Ml Iv Solution (07/15/22 10:29) Lorazepam Tablet (Ativan Tablet) (07/15/22 11:00) Medications Given in ED Current Medications Medications Dose Ordered Sig/Lizzie Route Start Time Stop Time Status Last Admin Dose Admin Hyoscyamine Sulfate 0.25 mg ONCE ONCE SL 07/15/22 10:15 07/15/22 10:16 DC 07/15/22 10:32 0.25 MG Lactated Ringer's 1,000 ml @ 0 mls/hr Q0M ONCE IV 07/15/22 10:15 07/15/22 10:16 DC 07/15/22 10:33 1,000 MLS/HR Lorazepam 0.5 mg ONCE ONCE BC 07/15/22 11:00 07/15/22 11:01 DC 07/15/22 11:00 0.5 MG Vital Signs/I&O 07/15/22 07/15/22 09:50 12:40 Temp 36.0 Pulse 73 70 Resp 18 18 B/P (MAP) 152/84 (106) 185/84 Pulse Ox 100 100 O2 Delivery Room Air Room Air Blood Pressure Mean: 106 Progress Progress Note : Progress Note Pain resolved completely with Levsin. However, she was still rather anxious. She was given buccal Ativan with excellent improvement in her anxiety. Labs were evaluated including CBC, CMP, CRP, and urinalysis. There was subtle suggestion of pyuria on the urinalysis. We discussed the possibility of treating versus waiting for culture results. Patient and her discussed and elected to wait for culture results. I did review prior culture results and found about half of the culture sensitivities demonstrated sensitivity to nitrofurantoin. I suggested this may be a good option if she does need antibiotics because it would be less likely to induce C. difficile or yeast infections. Patient was feeling much better and expressed a strong desire to return home. She additionally received a liter of IV fluid. Stool studies were ordered but she did not produce a stool while in the ER. See discharge instructions for further discussion. Departure Impression Primary Impression: Abdominal cramping Additional Impressions: Recurrent urinary tract infection Anxiety Disposition: HOME, SELF-CARE Condition: Improved Departure-Patient Inst. Decision time for Depature: 12:28 Referrals: MALDONADO GARRETT DO (PCP/Family) Primary Care Physician Patient Instructions: Abdominal Pain, Adult ED Add. Discharge Instructions: Start with a clear liquid diet and gradually advance your diet with small quantities of bland food as tolerated. Avoid fatty/greasy foods and dairy products for the first couple of days. Use Levsin (hyoscyamine) as prescribed for bowel cramping. You may use 1 to 2 tablets every 4 hours dissolved under the tongue as needed. Follow-up with your primary care provider soon as possible. Return to care if you have worsening symptoms despite following these instruct ions. There was some subtle suggestion of urinary tract infection on your urinalysis today. Please review urine culture results with your primary care doctor or urologist on Sunday or Sunday. Preliminary culture results should be available on Sunday and final results should be available on Sunday or Sunday. If you need treatment for urinary tract infection, consider Macrobid (nitrofurantoin) as it is probably less likely to cause problems with C. difficile and diarrhea. All discharge instructions reviewed with patient and/or family. Voiced understanding. Scripts Hyoscyamine Sulfate (Levsin-Sl) 0.125 Mg Tab.subl 1-2 MG SL Q4H PRN for CRAMPS, #10 TAB 2 Refills Prov: CIERA LOPEZ MD 07/15/22 Copy Copies To 1: MALDONADO GARRETT JOSHUA T MD Jul 15, 2022 12:12
[2022-07-15] MEDS ORDERED: HYOS0.1283 SL (12:39)
[2022-07-15 12:40] VITALS: BP 185/84
== END 2022-07-15 12:44 | disposition home or self-care (01) ==
LOC: EDUNIT# 09:43 → ER 09:44
DX: N39.0 Urinary tract infection, site not specified (principal); F41.9 Anxiety disorder, unspecified
CPT/HCPCS: 36415; 80053; 81000; 85025; 86141; 87088; 99283

== ENCOUNTER 2022-08-28 14:24 | Emergency (ER) | payer MEDICARE ==
[~2022-08-28] VITALS: Ht 154 cm; Wt 63.5 kg
[2022-08-28] MEDS ORDERED: fentaNYL INJ 100 MCG/2 ML AMP IVP ONE (14:45)
--- NOTE | 2022-08-28 14:46 | ED GI ---
General Chief Complaint: Abdominal/GI Problems Stated Complaint: POSSIBLE C-DIFF Nursing Triage Note: PT TO RM 10 WITH ABD PAIN AND DIARRHEA, HX OF C DIFF IN THE PAST, SS FOR A COUPLE WEEKS Source of Information: Patient, Family () Exam Limitations: Physical Impairments History of Present Illness Date Seen by Provider: Aug 28, 2022 Time Seen by Provider: 14:30 Initial Comments Patient is a 72yo female to the ER with her chief complaint of concern for c-diff colitis. Apparently has a history of multiple episodes in the past. Tells me she had one episode of diarrhea yesterday and then 4 today. No reported fever. No blood in her stools. Took one dose of immodium without relief of symptoms. Nauseated. Severe cramping (moaning and writhing around the bed). Has medication orders from her doctor for daily vancomycin orally (50mg) as well as immodium but hasnt taken it. No recent illnesses requiring antibiotics. No urinary complaints. History of kidney transplant 9 years ago. Also tissue valve replacement. Timing/Duration: 12 Hours Severity/Quality: Severe, Cramping Location: Generalized Abdomen Radiation: No Radiation Activities at Onset: None Associated Symptoms: Denies Symptoms Allergies and Home Medications Allergies Coded Allergies: codeine (Unverified Allergy, Unknown, 02/12/17) morphine (Verified Allergy, Unknown, NAUSEA, 02/12/17) Patient Home Medication List Home Medication List Reviewed: Yes Alosetron HCl (Lotronex) 0.5 Mg Tab, 0.5 MG PO BID, (Reported) Entered as Reported by: MARISEL BARRY on 07/31/20 0530 Ascorbate Calcium (Vitamin C) 500 Mg Tablet, 500 MG PO DAILY, (Reported) Entered as Reported by: ANUSHKA LUNA on 08/29/16 0947 Aspirin (Adult Low Dose Aspirin EC) 81 Mg Tablet.dr, 81 MG PO DAILY, (Reported) Entered as Reported by: SANTIAGO VILLARREAL on 08/28/16 1842 Brinzolamide (Azopt) 10 Ml Btl, 1 DROP OD DAILY, (Reported) Entered as Reported by: ANUSHKA LUNA on 08/29/16 0947 Bupropion HCl (Bupropion HCl) 75 Mg Tablet, 75 MG PO DAILY, (Reported) Entered as Reported by: MALDONADO LAN on 11/18/20 1131 Cholecalciferol (Vitamin D3) (Vitamin D3) 125 Mcg Capsule, 125 MCG PO DAILY, (Reported) Entered as Reported by: SERG FRIED on 09/26/21 1103 Clonazepam (Clonazepam) 0.5 Mg Tablet, 0.25 MG PO BID, (Reported) Entered as Reported by: SERG FRIED on 09/26/21 1059 Cranberry Fruit (Cranberry) 450 Mg Tablet, 450 MG PO BID, (Reported) Entered as Reported by: MALDONADO LAN on 09/02/20 1517 Cyclosporine (Restasis) 1 Each Droperette, 1 EACH OD BID, (Reported) Entered as Reported by: MALDONADO LAN on 03/23/20 1521 Dicyclomine HCl (Dicyclomine HCl) 20 Mg Tablet, 10 MG PO BID, (Reported) Entered as Reported by: MALDONADO LAN on 03/23/20 1518 Fluticasone Propionate (Flonase Allergy Relief) 9.9 Ml [place].susp, 2 SPRAY NS DAILY PRN for CONGESTION, (Reported) Entered as Reported by: MALDONADO LAN on 03/23/20 1518 Gabapentin (Gabapentin) 600 Mg Tablet, 600 MG PO TID, (Reported) Entered as Reported by: MALDONADO LAN on 03/23/20 1518 Hydrocodone/Acetaminophen (Hydrocodone-Acetamin 5-325 mg) 1 Each Tablet, 1 TAB PO Q4H PRN for PAIN-MODERATE (5-7) Prescribed by: CIERA MATTHEWS on 10/01/211757 Hyoscyamine Sulfate (Levsin-Sl) 0.125 Mg Tab.subl, 1-2 TAB SL Q4H PRN for CRAMPS Prescribed by: CIERA MATTHEWS on 10/01/211757 Hyoscyamine Sulfate (Levsin-Sl) 0.125 Mg Tab.subl, 1-2 MG SL Q4H PRN for CRAMPS Prescribed by: CIERA MATTHEWS on 07/15/22 1239 L.acidoph & Paracasei,B.lactis (Probiotic) 1 Each Capsule, 1 CAP PO DAILY, (Repo rted) Entered as Reported by: HUSSEIN LOPEZ on 04/02/15 0327 Loperamide HCl/Simethicone (Imodium Multi-Symptom Rel Cplt) 1 Each Tablet, 1 TAB PO DAILY PRN for DIARRHEA, (Reported) Entered as Reported by: HUSSEIN LOPEZ on 04/02/15 0324 Mirtazapine (Mirtazapine) 7.5 Mg Tablet, 7.5 MG PO DAILY, (Reported) Entered as Reported by: MARISEL BARRY on 07/31/20 0530 Multivitamin (Multivitamin) 1 Each Tablet, 1 EACH PO DAILY, (Reported) Entered as Reported by: MALDONADO LAN on 11/18/20 1131 Mycophenolate Sodium (Mycophenolic Acid) 180 Mg Tablet.dr, 180 MG PO BID, (Reported) Entered as Reported by: SERG FRIED on 09/26/21 1048 Nitrofurantoin Monohyd/M-Cryst (Macrobid 100 mg Capsule) 100 Mg Capsule, 1 TAB PO BID Prescribed by: MAYANK DE LEÓN on 09/28/21 1455 Pitavastatin Calcium (Livalo) 2 Mg Tablet, 2 MG PO DAILY, (Reported) Entered as Reported by: SERG FRIED on 09/26/21 1052 Quetiapine Fumarate (Quetiapine Fumarate) 25 Mg Tablet, 25 MG PO 2100, (Reported) Entered as Reported by: MALDONADO LAN on 11/18/20 1131 Tacrolimus (Prograf) 1 Mg Capsule, 1 MG PO BID, (Reported) Entered as Reported by: HUSSEIN LOPEZ on 04/02/15 0327 Vancomycin HCl (Vancomycin HCl) 125 Mg Capsule, 125 MG PO QID Prescribed by: MAYANK DE LEÓN on 09/28/21 1440 Review of Systems Review of Systems Constitutional: see HPI EENTM: No Symptoms Reported Respiratory: No Symptoms Reported Gastrointestinal: Abdominal Pain; Denies Blood Streaked Stools; Diarrhea; Denies Rectal Bleeding; Other (cramping) Genitourinary: No Symptoms Reported Musculoskeletal: no symptoms reported Skin: no symptoms reported Psychiatric/Neurological: Anxiety All Other Systems Reviewed Negative Unless Noted: Yes Past Fpptzzl-Ejrkdt-Yrigip Hx Patient Social History Tobacco Use?: No Substance use?: No Alcohol Use?: No Immunizations Up To Date Tetanus Booster (TDap): Unknown PED Vaccines UTD: No First/Initial COVID19 Vaccinat: 08/08 Second COVID19 Vaccination Lg: 09/05 Third COVID19 Vaccination Date: 03/08 Seasonal Allergies Seasonal Allergies: Yes Past Medical History Surgery/Hospitalization HX: Atificial heart valve,Kidney disease, NC, Afib, HTN, frequent UTI fistula on right arm, Kidney Transplant Surgeries: Yes (COCHLEAR IMPLANT, CARDIAC ABLATION, AORTIC VALVE, KIDNEY TRANSPLANT) Appendectomy, Cardiac, Dialysis, Ear Surgery, Eye Surgery, Hysterectomy, Kidney Transplant, Nephrectomy, Oophorectomy, Orthopedic, Renal, Tonsillectomy, Valve Replacement, Vascular Surgery Respiratory: Yes Pneumonia Currently Using CPAP: No Currently Using BIPAP: No Cardiac: Yes ( CHF; AORTIC PIG VALVE FOR AORTIC STENOSIS ; PAROXYSMAL ATRIAL FIB. 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 Sexually Transmitted Disease: No HIV/AIDS: No Genitourinary: Yes (BILATERAL NEPHRECTOMY AND RENAL TRANSPLANT, dialysis prior to transplant) Kidney Infection, Bladder Infection, Renal Failure, UTI-Chronic Gastrointestinal: Yes (H.PYLORI; GASTROPARESIS) Colitis, Gastroesophageal Reflux, Chronic Diarrhea, Polyps, C-Diff, Irritable Bowel Musculoskeletal: Yes (FREQUENT FALLS/USES WALKER;CHRONIC GENERALIZED WEAKNESS) Degenerate Disk Disease, Arthritis, Chronic Back Pain Endocrine: Yes Parathyroid Disease, Diabetes, Non-Insulin dep HEENT: Yes (LEFT EYE REMOVED DUE TO UVEITIS; RIGHT COCHLEAR IMPLANT) Cataract, Glaucoma Hearing Impairment: Hard of Hearing, Hearing Aide Left Cancer: Yes Kidney Did You Recieve Any Treatments: Yes What Type of Treatment Did You: Surgical Intervention Psychosocial: Yes Anxiety, Depression Integumentary: No Blood Disorders: No Adverse Reaction/Blood Tranf: No (HAS HAD BLOOD WITH NO REACTION) Family Medical History Alzheimer's disease 19 MOTHER (later in life) Dementia 19 MOTHER No Pertinent Family Hx PAST SURGICAL HISTORY: -LEFT EYE REMOVED/ARTIFICIAL EYE DUE TO UVEITIS -RIGHT COCHLEAR IMPLANT -DIALYSIS SHUNT LEFT ARM--DIALYSIS X 4 YEARS -MULTIPLE REVISIONS OF DIALYSIS AV GRAFT -PERITONEAL DIALYSIS SHUNT -BILATERAL NEPHRECTOMY WITH RENAL TRANSPLANT-IN RLQ OF ABDOMEN--6 YEARS AGO--FOR POLYCYSTIC KIDNEY DISEASE -CARDIAC ABLATION -AORTIC VALVE REPLACEMENT WITH PIG VALVE FOR AORTIC STENOSIS -TONSILLECTOMY -APPENDECTOMY -HYSTERECTOMY/ LATER BSO -CARDIAC CATH 2010--NON-OBSTRUCTIVE DISEASE, NO INTERVENTION -BILATERAL PULMONARY VEIN ABLATION WITH STAPLE AMPTUATION OF LEFT ATRIAL APPENDAGE AT SAME TIME AORTIC VALVE REPLACEMENT -EGD/COLONOSCOPIES/POLYPECTOMIES -EXCISION OF LEFT HIP HEMATOMA 01/2017 [facility] [place]. Physical Exam Vital Signs Vital Signs - First Documented 08/28/22 14:34 Temp 36.5 Pulse 85 Resp 22 B/P (MAP) 158/91 (113) Pulse Ox 95 O2 Delivery Room Air Capillary Refill : Less Than 3 Seconds Height/Weight/BMI Height: 5'1.00" Weight: 127lbs. 1.0oz. [id number]; 26.00 BMI Method:Stated General Appearance: WD/WN, moderate distress HEENT: PERRL/EOMI Neck: normal inspection Respiratory: lungs clear, normal breath sounds, no respiratory distress, no accessory muscle use Cardiovascular: regular rate, rhythm Gastrointestinal: soft, abnormal bowel sounds (hyperactive), guarding (voluntary) Extremities: normal range of motion, non-tender, normal inspection Neurologic/Psychiatric: alert, oriented x 3, other (anxious) Skin: normal color, warm/dry Progress/Results/Core Measures Results/Orders Lab Results Laboratory Tests Test 08/28/22 14:50 Range/Units White Blood Count 11.0 4.3-11.0 10^3/uL Red Blood Count 4.68 3.80-5.11 10^6/uL Hemoglobin 13.8 11.5-16.0 g/dL Hematocrit 39 35-52 % Mean Corpuscular Volume 84 80-99 fL Mean Corpuscular Hemoglobin 30 25-34 pg Mean Corpuscular Hemoglobin Concent 35 32-36 g/dL Red Cell Distribution Width 13.0 10.0-14.5 % Platelet Count 193 130-400 10^3/uL Mean Platelet Volume 9.6 9.0-12.2 fL Immature Granulocyte % (Auto) 1 % Neutrophils (%) (Auto) 77 H 42-75 % Lymphocytes (%) (Auto) 13 12-44 % Monocytes (%) (Auto) 8 0-12 % Eosinophils (%) (Auto) 1 0-10 % Basophils (%) (Auto) 0 0-10 % Neutrophils # (Auto) 8.5 H 1.8-7.8 10^3/uL Lymphocytes # (Auto) 1.5 1.0-4.0 10^3/uL Monocytes # (Auto) 0.8 0.0-1.0 10^3/uL Eosinophils # (Auto) 0.1 0.0-0.3 10^3/uL Basophils # (Auto) 0.0 0.0-0.1 10^3/uL Immature Granulocyte # (Auto) 0.1 0.0-0.1 10^3/uL Sodium Level 138 135-145 MMOL/L Potassium Level 4.2 3.6-5.0 MMOL/L Chloride Level 106 98-107 MMOL/L Carbon Dioxide Level 19 L 21-32 MMOL/L Anion Gap 13 5-14 MMOL/L Blood Urea Nitrogen 7 7-18 MG/DL Creatinine 0.79 0.60-1.30 MG/DL Estimat Glomerular Filtration Rate 79 BUN/Creatinine Ratio 9 Glucose Level 96 70-105 MG/DL Calcium Level 9.6 8.5-10.1 MG/DL Corrected Calcium 9.6 8.5-10.1 MG/DL Total Bilirubin 0.6 0.1-1.0 MG/DL Aspartate Amino Transf (AST/SGOT) 19 5-34 U/L Alanine Aminotransferase (ALT/SGPT) 15 0-55 U/L Alkaline Phosphatase 77 40-136 U/L Total Protein 7.3 6.4-8.2 GM/DL Albumin 4.0 3.2-4.5 GM/DL My Orders Orders - CARLA HDZ MD Ed Iv/Invasive Line Start (08/28/22 14:38) Cbc With Automated Diff (08/28/22 14:38) Comprehensive Metabolic Panel (08/28/22 14:38) Fentanyl Inj (Sublimaze Injection) (08/28/22 14:45) Isolation Central Supply Req (08/28/22 14:38) Medications Given in ED Vital Signs/I&O 08/28/22 08/28/22 08/28/22 14:34 14:58 16:31 Temp 36.5 36.5 36.5 Pulse 85 77 Resp 22 22 B/P (MAP) 158/91 (113) 155/77 Pulse Ox 95 95 O2 Delivery Room Air Room Air Blood Pressure Mean: 113 Progress Progress Note : Time: 16:16 Progress Note Patient seen and evaluated by me. Evaluation today includes physical exam, CBC, comprehensive metabolic panel and urinalysis. Stool studies were ordered but the patient was unable to provide a stool specimen. Physical exam pertinent for agitated anxious appearing elderly female moderate to severe distress due to abdominal cramping. Abdomen diffusely tender, slightly hyperactive bowel sounds. No rebound or involuntary guarding. Heart is regular with systolic click, lungs are clear. She appears adequately hydrated. Color is good. Vital signs are stable. Differential diagnosis based on history and physical exam, acute bowel obstruction, colitis, sepsis/urinary tract infection in an immunocompromised patient due to renal transplant. Labs reviewed, CBC is normal, chemistry is normal with very good renal function urinalysis is clear. Patient is treated with IV fentanyl and has complete resolution of her pain. She has been unable to provide a stool specimen. Low likelihood of C. difficile colitis which was her main concern secondary to the fact she has not had persistent ongoing diarrhea, no recent antibiotic use. She does have as needed orders for vancomycin and Imodium at home. She did not use those. We will send the patient home with an outpatient order for stool studies specifically C. difficile testing. She is comfortable at discharge. All q uestions are sought and answered. Departure Impression Primary Impression: Abdominal pain Qualified Codes: R10.84 - Generalized abdominal pain Disposition: HOME, SELF-CARE Condition: Improved Departure-Patient Inst. Decision time for Depature: 16:18 Referrals: MALDONADO GARRETT DO (PCP/Family) Primary Care Physician Patient Instructions: Abdominal Pain, Adult ED Add. Discharge Instructions: Drink plenty of fluids to stay well-hydrated. continue your daily medications as prescribed by your primary care physician. As long as you do not have fever and you are not passing bloody stool you can continue to take Imodium. We have sent you home with some supplies in order to obtain a stool specimen. You can bring that back to the hospital for testing for C. difficile. If you develop a fever do not take Imodium. Follow-up with your primary care doctor. Return to the emergency department for any new, concerning or emergent complaints. Copy Copies To 1: MALDONAOD GARRETT KATHRYN M MD Aug 28, 2022 14:46
[2022-08-28 15:01] LABS: BASOPHILS % (AUTO) 0 % (0-10); EOSINOPHILS # (AUTO) 0.1 10^3/uL (0.0-0.3); EOSINOPHILS % (AUTO) 1 % (0-10); HEMATOCRIT 39 % (35-52); HEMOGLOBIN 13.8 g/dL (11.5-16.0); LYMPHOCYTES # (AUTO) 1.5 10^3/uL (1.0-4.0); LYMPHOCYTES % (AUTO) 13 % (12-44); MEAN CORPUSCULAR HEMOGLOBIN 30 pg (25-34); MEAN CORPUSCULAR HGB CONC 35 g/dL (32-36); MEAN CORPUSCULAR VOLUME 84 fL (80-99); MEAN PLATELET VOLUME 9.6 fL (9.0-12.2); MONOCYTES # (AUTO) 0.8 10^3/uL (0.0-1.0); MONOCYTES % (AUTO) 8 % (0-12); NEUTROPHILS # (AUTO) 8.5 10^3/uL (1.8-7.8); NEUTROPHILS % (AUTO) 77 % (42-75); PLATELET COUNT 193 10^3/uL (130-400)
[2022-08-28 15:21] LABS: POTASSIUM 4.2 MMOL/L (3.6-5.0)
[2022-08-28 15:22] LABS: CALCIUM 9.6 MG/DL (8.5-10.1)
[2022-08-28 15:23] LABS: TOTAL PROTEIN 7.3 GM/DL (6.4-8.2)
[2022-08-28 15:25] LABS: BILIRUBIN,TOTAL 0.6 MG/DL (0.1-1.0)
[2022-08-28 15:27] LABS: CREATININE SERUM 0.79 MG/DL (0.60-1.30)
[2022-08-28 16:31] VITALS: BP 155/77
== END 2022-08-28 16:31 | disposition home or self-care (01) ==
LOC: EDUNIT# 14:24 → ER 14:25
DX: R10.84 Generalized abdominal pain (principal); E11.39 Type 2 diabetes mellitus with other diabetic ophthalmic complication; I13.2 Hypertensive heart and chronic kidney disease with heart failure and with stage 5 chronic kidney disease, or end stage renal disease; E11.22 Type 2 diabetes mellitus with diabetic chronic kidney disease; N18.6 End stage renal disease; I50.9 Heart failure, unspecified; Z99.2 Dependence on renal dialysis; Z94.0 Kidney transplant status
CPT/HCPCS: 36415; 80053; 85025

== ENCOUNTER → 2022-08-30 | Outpatient (CLI) | payer MEDICARE | LOC: LABNPT 09:33 | PROVIDERS: ATTEND Emergency Medicine | DX: R10.9 Unspecified abdominal pain (principal); R19.7 Diarrhea, unspecified | CPT/HCPCS: 82274; 87015; 87045; 87046; 87324; 87449; 87899 ==

== ENCOUNTER 2022-10-26 16:31 | Emergency (ER) | payer MEDICARE ==
[~2022-10-26] VITALS: Ht 155 cm; Wt 64.0 kg
[2022-10-26] MEDS ORDERED: NS IV 500 ML 500 ML IV ONE (17:00)
[2022-10-26 17:03] LABS: BASOPHILS # (AUTO) 0.1 10^3/uL (0.0-0.1); BASOPHILS % (AUTO) 0 % (0-10); EOSINOPHILS # (AUTO) 0.1 10^3/uL (0.0-0.3); EOSINOPHILS % (AUTO) 1 % (0-10); HEMATOCRIT 38 % (35-52); HEMOGLOBIN 13.5 g/dL (11.5-16.0); LYMPHOCYTES # (AUTO) 1.8 10^3/uL (1.0-4.0); LYMPHOCYTES % (AUTO) 14 % (12-44); MEAN CORPUSCULAR HEMOGLOBIN 30 pg (25-34); MEAN CORPUSCULAR HGB CONC 35 g/dL (32-36); MEAN CORPUSCULAR VOLUME 84 fL (80-99); MEAN PLATELET VOLUME 10.1 fL (9.0-12.2); MONOCYTES # (AUTO) 1.1 10^3/uL (0.0-1.0); MONOCYTES % (AUTO) 9 % (0-12); NEUTROPHILS # (AUTO) 9.4 10^3/uL (1.8-7.8); NEUTROPHILS % (AUTO) 76 % (42-75); PLATELET COUNT 205 10^3/uL (130-400); WHITE BLOOD COUNT 12.4 10^3/uL (4.3-11.0)
[2022-10-26 17:15] LABS: BILIRUBIN,URINE NEGATIVE (NEGATIVE); CLARITY,URINE CLEAR; COLOR,URINE YELLOW; GLUCOSE, URINE (UA) NEGATIVE (NEGATIVE); KETONES,URINE NEGATIVE (NEGATIVE); LEUKOCYTE ESTERASE ,URINE 1+ (NEGATIVE); NITRITE,URINE NEGATIVE (NEGATIVE); PH,URINE 5.5 (5-9); PROTEIN,URINE NEGATIVE (NEGATIVE)
[2022-10-26 17:22] LABS: BACTERIA,URINE FEW /HPF; WBC,URINE 25-50 /HPF
[2022-10-26 17:25] LABS: ALBUMIN 4.1 GM/DL (3.2-4.5); POTASSIUM 3.7 MMOL/L (3.6-5.0)
[2022-10-26 17:27] LABS: CALCIUM 9.4 MG/DL (8.5-10.1)
[2022-10-26 17:28] LABS: TOTAL PROTEIN 7.3 GM/DL (6.4-8.2)
--- NOTE | 2022-10-26 17:29 | ED Abdominal Pain ---
General Chief Complaint: Abdominal/GI Problems Stated Complaint: DIARRHEA Nursing Triage Note: PT STATES SHE HAD BEEN CONSTIPATED ET GAVE HER STOOL SOFTNERS AND HAS HAD DIARRHEA SINCE. PT HAS A HX OF CDIFF. Source of Information: Patient Exam Limitations: No Limitations History of Present Illness Date Seen by Provider: October 26, 2022 Time Seen by Provider: 16:40 Initial Comments Here with report of several diarrhea stools today. Apparently she was constipated and her gave her stool softeners and now she is going quite a few times. She does have abdominal cramping. She does have history of C. difficile on many occasions with similar presentation previously. Most recent one was in August of this year and she was C. difficile positive ultimately. states that her bowel movements and diarrhea smelled like C. difficile. She does have prescription for vancomycin at home but has not started that. She also has Imodium at home as well and has not tried that either. Does have history of renal transplant and is taking those medicines as previously prescribed. Previously was on dialysis but has not been on dialysis since the kidney transplant. Timing/Duration: 24 Hours Severity/Quality: Moderate, Cramping Location: Generalized Abdomen Radiation: No Radiation Activities at Onset: None Modifying Factors: Improves With Defecating Associated Symptoms: No Chest Pain, No Fever/Chills, No Nausea/Vomiting, No Swelling/Mass in Abdomen, No Weakness Allergies and Home Medications Allergies Coded Allergies: codeine (Unverified Allergy, Unknown, 02/12/17) morphine (Verified Allergy, Unknown, NAUSEA, 02/12/17) Patient Home Medication List Home Medication List Reviewed: Yes Alosetron HCl (Lotronex) 0.5 Mg Tab, 0.5 MG PO BID, (Reported) Entered as Reported by: MARISEL BARRY on 07/31/20 0530 Ascorbate Calcium (Vitamin C) 500 Mg Tablet, 500 MG PO DAILY, (Reported) Entered as Reported by: ANUSHKA LUNA on 08/29/16 09 Aspirin (Adult Low Dose Aspirin EC) 81 Mg Tablet.dr, 81 MG PO DAILY, (Reported) Entered as Reported by: SANTIAGO VILLARREAL on 08/28/16 184 Brinzolamide (Azopt) 10 Ml Btl, 1 DROP OD DAILY, (Reported) Entered as Reported by: ANUSHKA LUNA on 08/29/16 09 Bupropion HCl (Bupropion HCl) 75 Mg Tablet, 75 MG PO DAILY, (Reported) Entered as Reported by: MALDONADO LAN on 11/18/20 1131 Cholecalciferol (Vitamin D3) (Vitamin D3) 125 Mcg Capsule, 125 MCG PO DAILY, (Reported) Entered as Reported by: SERG FRIED on 09/26/21 1103 Clonazepam (Clonazepam) 0.5 Mg Tablet, 0.25 MG PO BID, (Reported) Entered as Reported by: SERG FRIED on 09/26/21 1059 Cranberry Fruit (Cranberry) 450 Mg Tablet, 450 MG PO BID, (Reported) Entered as Reported by: MALDONADO LAN on 09/02/20 1517 Cyclosporine (Restasis) 1 Each Droperette, 1 EACH OD BID, (Reported) Entered as Reported by: MALDONADO LAN on 03/23/20 1521 Dicyclomine HCl (Dicyclomine HCl) 20 Mg Tablet, 10 MG PO BID, (Reported) Entered as Reported by: MALDONADO LAN on 03/23/20 1518 Fluticasone Propionate (Flonase Allergy Relief) 9.9 Ml [place].susp, 2 SPRAY NS DAILY PRN for CONGESTION, (Reported) Entered as Reported by: MALDONADO LAN on 03/23/20 151 Gabapentin (Gabapentin) 600 Mg Tablet, 600 MG PO TID, (Reported) Entered as Reported by: MALDONADO LAN on 03/23/20 151 Hydrocodone/Acetaminophen (Hydrocodone-Acetamin 5-325 mg) 1 Each Tablet, 1 TAB PO Q4H PRN for PAIN-MODERATE (5-7) Prescribed by: CIERA MATTHEWS on 10/01/211757 Hyoscyamine Sulfate (Levsin-Sl) 0.125 Mg Tab.subl, 1-2 TAB SL Q4H PRN for CRAMPS Prescribed by: CIERA MATTHEWS on 10/01/211757 Hyoscyamine Sulfate (Levsin-Sl) 0.125 Mg Tab.subl, 1-2 MG SL Q4H PRN for CRAMPS Prescribed by: CIERA MATTHEWS on 07/15/22 1239 L.acidoph & Paracasei,B.lactis (Probiotic) 1 Each Capsule, 1 CAP PO DAILY, (Reported) Entered as Reported by: HUSSEIN LOPEZ on 04/02/15 0327 Loperamide HCl/Simethicone (Imodium Multi-Symptom Rel Cplt) 1 Each Tablet, 1 TAB PO DAILY PRN for DIARRHEA, (Reported) Entered as Reported by: HUSSEIN LOPEZ on 04/02/15 0324 Mirtazapine (Mirtazapine) 7.5 Mg Tablet, 7.5 MG PO DAILY, (Reported) Entered as Reported by: MARISEL BARRY on 07/31/20 0530 Multivitamin (Multivitamin) 1 Each Tablet, 1 EACH PO DAILY, (Reported) Entered as Reported by: MALDONADO LAN on 11/18/20 1131 Mycophenolate Sodium (Mycophenolic Acid) 180 Mg Tablet.dr, 180 MG PO BID, (Reported) Entered as Reported by: SERG FRIED on 09/26/21 1048 Nitrofurantoin Monohyd/M-Cryst (Macrobid 100 mg Capsule) 100 Mg Capsule, 1 TAB PO BID Prescribed by: MAYANK DE LEÓN on 09/28/21 1455 Pitavastatin Calcium (Livalo) 2 Mg Tablet, 2 MG PO DAILY, (Reported) Entered as Reported by: SERG FRIED on 09/26/21 1052 Quetiapine Fumarate (Quetiapine Fumarate) 25 Mg Tablet, 25 MG PO 2100, (Reported) Entered as Reported by: MALDONADO LAN on 11/18/20 1131 Tacrolimus (Prograf) 1 Mg Capsule, 1 MG PO BID, (Reported) Entered as Reported by: HUSSEIN LOPEZ on 04/02/15 032 Vancomycin HCl (Vancomycin HCl) 125 Mg Capsule, 125 MG PO QID Prescribed by: MAYANK DE LEÓN on 09/28/21 1440 Review of Systems Review of Systems Constitutional: see HPI; No chills, No fever EENTM: No Nose Congestion, No Throat Pain Respiratory: Denies Cough, Denies Shortness of Air Cardiovascular: No Symptoms Reported Gastrointestinal: Abdominal Pain, Diarrhea Genitourinary: Denies Burning, Denies Frequency, Denies Hematuria, Denies Pain Musculoskeletal: No back pain Skin: no symptoms reported Past Efpldfw-[id number] Hx Patient Social History Tobacco Use?: No Substance use?: No Alcohol Use?: No Immunizations Up To Date Tetanus Booster (TDap): Unknown PED Vaccines UTD: No First/Initial COVID19 Vaccinat: 08/08 Second COVID19 Vaccination Lg: 09/05 Third COVID19 Vaccination Date: 03/08 Seasonal Allergies Seasonal Allergies: Yes Past Medical History Surgery/Hospitalization HX: Atificial heart valve,Kidney disease, NC, Afib, HTN, frequent UTI fistula on right arm, Kidney Transplant Surgeries: Yes (COCHLEAR IMPLANT, CARDIAC ABLATION, AORTIC VALVE, KIDNEY TRANSPLANT) Appendectomy, Cardiac, Dialysis, Ear Surgery, Eye Surgery, Hysterectomy, Kidney Transplant, Nephrectomy, Oophorectomy, Orthopedic, Renal, Tonsillectomy, Valve Replacement, Vascular Surgery Respiratory: Yes Pneumonia Currently Using CPAP: No Currently Using BIPAP: No Cardiac: Yes ( CHF; AORTIC PIG VALVE FOR AORTIC STENOSIS ; PAROXYSMAL ATRIAL FIB. 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 History: Hysterectomy, Menopausal Sexually Transmitted Disease: No HIV/AIDS: No Genitourinary: Yes (BILATERAL NEPHRECTOMY AND RENAL TRANSPLANT, dialysis prior to transplant) Kidney Infection, Bladder Infection, Renal Failure, UTI-Chronic Gastrointestinal: Yes (H.PYLORI; GASTROPARESIS) Colitis, Gastroesophageal Reflux, Chronic Diarrhea, Polyps, C-Diff, Irritable Bowel Musculoskeletal: Yes (FREQUENT FALLS/USES WALKER;CHRONIC GENERALIZED WEAKNESS) Degenerate Disk Disease, Arthritis, Chronic Back Pain Endocrine: Yes Parathyroid Disease, Diabetes, Non-Insulin dep HEENT: Yes (LEFT EYE REMOVED DUE TO UVEITIS; RIGHT COCHLEAR IMPLANT) Cataract, Glaucoma Hearing Impairment: Hard of Hearing, Hearing Aide Left Cancer: Yes Kidney Did You Recieve Any Treatments: Yes What Type of Treatment Did You: Surgical Intervention Psychosocial: Yes Anxiety, Depression Integumentary: No Blood Disorders: No Adverse Reaction/Blood Tranf: No (HAS HAD BLOOD WITH NO REACTION) Family Medical History Reviewed Nursing Family Hx Alzheimer's disease 19 MOTHER (later in life) Dementia 19 MOTHER No Pertinent Family Hx PAST SURGICAL HISTORY: -LEFT EYE REMOVED/ARTIFICIAL EYE DUE TO UVEITIS -RIGHT COCHLEAR IMPLANT -DIALYSIS SHUNT LEFT ARM--DIALYSIS X 4 YEARS -MULTIPLE REVISIONS OF DIALYSIS AV GRAFT -PERITONEAL DIALYSIS SHUNT -BILATERAL NEPHRECTOMY WITH RENAL TRANSPLANT-IN RLQ OF ABDOMEN--6 YEARS AGO--FOR POLYCYSTIC KIDNEY DISEASE -CARDIAC ABLATION -AORTIC VALVE REPLACEMENT WITH PIG VALVE FOR AORTIC STENOSIS -TONSILLECTOMY -APPENDECTOMY -HYSTERECTOMY/ LATER BSO -CARDIAC CATH 2010--NON-OBSTRUCTIVE DISEASE, NO INTERVENTION -BILATERAL PULMONARY VEIN ABLATION WITH STAPLE AMPTUATION OF LEFT ATRIAL APPENDAGE AT SAME TIME AORTIC VALVE REPLACEMENT -EGD/COLONOSCOPIES/POLYPECTOMIES -EXCISION OF LEFT HIP HEMATOMA 01/2017 [facility] Physical Exam Vital Signs Vital Signs - First Documented 10/26/22 16:33 Temp 36.0 Pulse 81 Resp 16 B/P (MAP) 152/78 (102) Pulse Ox 95 O2 Delivery Room Air Capillary Refill : Less Than 3 Seconds Height/Weight/BMI Height: 5'1.00" Weight: 127lbs. 1.0oz. [id number]; 26.00 BMI Method:Stated General Appearance: WD/WN, mild distress HEENT: pharynx normal Neck: full range of motion, supple Respiratory: lungs clear, normal breath sounds Cardiovascular: regular rate, rhythm, no murmur Gastrointestinal: normal bowel sounds, soft, tenderness (Mild diffuse tenderness to palpation) Extremities: non-tender, normal inspection Back: normal inspection, no CVA tenderness, no vertebral tenderness Neurologic/Psychiatric: alert, oriented x 3 Skin: normal color, warm/dry Progress/Results/Core Measures Results/Orders Lab Results Laboratory Tests Test 10/26/22 16:50 10/26/22 17:10 Range/Units White Blood Count 12.4 H 4.3-11.0 10^3/uL Red Blood Count 4.57 3.80-5.11 10^6/uL Hemoglobin 13.5 11.5-16.0 g/dL Hematocrit 38 35-52 % Mean Corpuscular Volume 84 80-99 fL Mean Corpuscular Hemoglobin 30 25-34 pg Mean Corpuscular Hemoglobin Concent 35 32-36 g/dL Red Cell Distribution Width 14.0 10.0-14.5 % Platelet Count 205 130-400 10^3/uL Mean Platelet Volume 10.1 9.0-12.2 fL Immature Granulocyte % (Auto) 0 % Neutrophils (%) (Auto) 76 H 42-75 % Lymphocytes (%) (Auto) 14 12-44 % Monocytes (%) (Auto) 9 0-12 % Eosinophils (%) (Auto) 1 0-10 % Basophils (%) (Auto) 0 0-10 % Neutrophils # (Auto) 9.4 H 1.8-7.8 10^3/uL Lymphocytes # (Auto) 1.8 1.0-4.0 10^3/uL Monocytes # (Auto) 1.1 H 0.0-1.0 10^3/uL Eosinophils # (Auto) 0.1 0.0-0.3 10^3/uL Basophils # (Auto) 0.1 0.0-0.1 10^3/uL Immature Granulocyte # (Auto) 0.1 0.0-0.1 10^3/uL Sodium Level 138 135-145 MMOL/L Potassium Level 3.7 3.6-5.0 MMOL/L Chloride Level 108 H 98-107 MMOL/L Carbon Dioxide Level 19 L 21-32 MMOL/L Anion Gap 11 5-14 MMOL/L Blood Urea Nitrogen 10 7-18 MG/DL Creatinine 0.92 0.60-1.30 MG/DL Estimat Glomerular Filtration Rate 66 BUN/Creatinine Ratio 11 Glucose Level 104 70-105 MG/DL Calcium Level 9.4 8.5-10.1 MG/DL Corrected Calcium 9.3 8.5-10.1 MG/DL Total Bilirubin 0.5 0.1-1.0 MG/DL Aspartate Amino Transf (AST/SGOT) 17 5-34 U/L Alanine Aminotransferase (ALT/SGPT) 16 0-55 U/L Alkaline Phosphatase 77 40-136 U/L C-Reactive Protein High Sensitivity 2.70 H 0.00-0.50 MG/DL Total Protein 7.3 6.4-8.2 GM/DL Albumin 4.1 3.2-4.5 GM/DL Urine Color YELLOW Urine Clarity CLEAR Urine pH 5.5 5-9 Urine Specific [place] 1.015 L 1.016-1.022 Urine Protein NEGATIVE NEGATIVE Urine Glucose (UA) NEGATIVE NEGATIVE Urine Ketones NEGATIVE NEGATIVE Urine Nitrite NEGATIVE NEGATIVE Urine Bilirubin NEGATIVE NEGATIVE Urine Urobilinogen 0.2 < = 1.0 MG/DL Urine Leukocyte Esterase 1+ H NEGATIVE Urine RBC (Auto) NEGATIVE NEGATIVE Urine RBC NONE /HPF Urine WBC 25-50 H /HPF Urine Squamous Epithelial Cells 5-10 /HPF Urine Crystals NONE /LPF Urine Bacteria FEW H /HPF Urine Casts NONE /LPF Urine Mucus NEGATIVE /LPF Urine Culture Indicated YES My Orders Orders - ROYCE OBREGON MD Cbc With Automated Diff (10/26/22 16:47) Comprehensive Metabolic Panel (10/26/22 16:47) Hs C Reactive Protein (10/26/22 16:47) Ua Culture If Indicated (10/26/22 16:47) Stool Culture (10/26/22 16:47) Ed Iv/Invasive Line Start (10/26/22 16:47) Ns Iv 500 Ml (Sodium Chloride 0.9%) (10/26/22 17:00) C Difficile Ag + Toxin A/B. (10/26/22 16:47) Urine Culture (10/26/22 17:10) Fentanyl Inj (Sublimaze Injection) (10/26/22 17:45) Medications Given in ED Current Medications Medications Dose Ordered Sig/Lizzie Route Start Time Stop Time Status Last Admin Dose Admin Sodium Chloride 500 ml @ 0 mls/hr Q0M ONCE IV 10/26/22 17:00 10/26/22 17:01 DC 10/26/22 17:08 1,000 MLS/HR Vital Signs/I&O 10/26/22 10/26/22 16:33 17:50 Temp 36.0 36.0 Pulse 81 Resp 16 B/P (MAP) 152/78 (102) Pulse Ox 95 O2 Delivery Room Air Blood Pressure Mean: 102 Progress Progress Note : Progress Note Seen and evaluated. IV, labs including CBC, CMP and CRP ordered. Stool cultures ordered in case we are able to get stool sample. This did include C. difficile toxin evaluation. UA with C&S if indicated ordered. Normal saline 500 mL bolus and fentanyl 25 mcg IV ordered. Monitor patient. Differential diagnosis includes C. difficile diarrhea, UTI, electrolyte abnormality, renal dysfunction, dehydration 1835: Patient is much improved after fentanyl and fluids. Given that she is feeling better, no further actions are required currently and I do not believe she needs imaging such as CT abdomen pelvis, which was a consideration but decided against with normal labs and improved symptoms. I do not believe she needs admission. She has not had a bowel movement here. We did rediscuss the potential for C. difficile given her significant history and clinical situation including 's report of it smells like C. difficile diarrhea now. We will go ahead and initiate outpatient treatment for C. difficile with her home prescription of vancomycin tablets 125 mg. She will take those 4 times daily for 5 days and will follow-up with Dr. Garrett. I will follow-up with the patient regarding urine culture that is pending and should be available by my next shift on 10/29. They agree with this. She has had mixed nida previously. UA did show 25-50 white cells but 5-10 squames and only a few bacteria and no nitrites so I am not convinced that this indicates that for urinary tract infection and may be contamination especially with recent diarrhea. CBC showed a slightly elevated white count at 12.4 but otherwise grossly normal with mild left shift. Chemistries were grossly normal with normal serum creatinine and slight elevation of CRP at 2.7. Patient and family are comfortable with going home at this point and doing therapy as discussed above with starting therapy for UTI if indicated after cultures. Discharged home with return precautions. Patient and family verbalized understanding of instructions and agreement with plan. Departure Impression Primary Impression: Abdominal cramping Additional Impression: Diarrhea Qualified Codes: R19.7 - Diarrhea, unspecified Disposition: HOME, SELF-CARE Condition: Improved Departure-Patient Inst. Decision time for Depature: 18:36 Referrals: MALDONADO GARRETT DO (PCP/Family) Primary Care Physician Patient Instructions: Clostridioides difficile (DC), Diarrhea in Adolescents and Adults, Severe Abdominal Pain, Adult (DC) Add. Discharge Instructions: All discharge instructions reviewed with patient and/or family. Voiced understanding. It is highly likely that you have C. difficile diarrhea again. You can start your vancomycin tablets taking 1 tablet 4 times a day for 5 days. You also may take Imodium per package directions. Drink plenty of fluids. Try to eat a ligh t diet and advance as tolerated. Follow-up with your doctor next week for recheck and further evaluation. I will call you on Sunday for follow-up related to the urine culture that is currently in progress. Return for worse pain, fever, vomiting, weakness, breathing problems or other concerns as needed. Continue other medications as previously prescribed. ROYCE OBREGON MD October 26, 2022 17:29
[2022-10-26 17:30] LABS: BILIRUBIN,TOTAL 0.5 MG/DL (0.1-1.0)
[2022-10-26 17:32] LABS: CREATININE SERUM 0.92 MG/DL (0.60-1.30)
[2022-10-26] MEDS ORDERED: fentaNYL INJ 100 MCG/2 ML AMP IVP STA (17:45)
[2022-10-26 18:46] VITALS: BP 162/81
[2022-10-29] MEDS ORDERED: NITR100C PO (06:17)
== END 2022-10-26 18:46 | disposition home or self-care (01) ==
LOC: EDUNIT# 16:31 → ER 16:32
DX: R19.7 Diarrhea, unspecified (principal); R10.84 Generalized abdominal pain; R79.82 Elevated C-reactive protein (CRP); Z94.0 Kidney transplant status; Z79.899 Other long term (current) drug therapy
CPT/HCPCS: 36415; 80053; 81000; 85025; 86141; 87077; 87088; 87186

== ENCOUNTER 2022-11-01 01:23 | Observation (INO) | payer MEDICARE ==
[~2022-11-01] VITALS: Ht 152.4 cm; Wt 68.7 kg
[~2022-11-01 01:23] MED LIST changes: +NITR100C PO
[2022-11-01] MEDS ORDERED: ONDANSETRON 4 MG/2 ML (SDV) Z0FRAN IVP ONE (01:45)
[2022-11-01] MEDS ORDERED: LACTATED RINGERS 1,000 ML IV ONE (01:45)
[2022-11-01] MEDS ORDERED: PANTOPRAZOLE 40 MG (PROTONIX) VIAL IV ONE (01:45)
[2022-11-01 02:06] LABS: BASOPHILS % (AUTO) 0 % (0-10); EOSINOPHILS # (AUTO) 0.1 10^3/uL (0.0-0.3); EOSINOPHILS % (AUTO) 1 % (0-10); HEMATOCRIT 39 % (35-52); HEMOGLOBIN 13.7 g/dL (11.5-16.0); LYMPHOCYTES % (AUTO) 17 % (12-44); MEAN CORPUSCULAR HEMOGLOBIN 29 pg (25-34); MEAN CORPUSCULAR HGB CONC 35 g/dL (32-36); MEAN CORPUSCULAR VOLUME 83 fL (80-99); MEAN PLATELET VOLUME 9.9 fL (9.0-12.2); MONOCYTES # (AUTO) 0.5 10^3/uL (0.0-1.0); MONOCYTES % (AUTO) 4 % (0-12); NEUTROPHILS # (AUTO) 8.9 10^3/uL (1.8-7.8); NEUTROPHILS % (AUTO) 77 % (42-75); PLATELET COUNT 178 10^3/uL (130-400); WHITE BLOOD COUNT 11.6 10^3/uL (4.3-11.0)
[2022-11-01 02:16] LABS: ALBUMIN 4.2 GM/DL (3.2-4.5); POTASSIUM 3.5 MMOL/L (3.6-5.0)
[2022-11-01 02:17] LABS: CALCIUM 9.4 MG/DL (8.5-10.1)
[2022-11-01 02:19] LABS: TOTAL PROTEIN 7.2 GM/DL (6.4-8.2)
[2022-11-01 02:20] LABS: BILIRUBIN,TOTAL 0.5 MG/DL (0.1-1.0)
[2022-11-01 02:22] LABS: CREATININE SERUM 0.74 MG/DL (0.60-1.30)
[2022-11-01 02:25] LABS: MAGNESIUM 1.7 MG/DL (1.6-2.4)
[2022-11-01 03:34] LABS: BILIRUBIN,URINE NEGATIVE (NEGATIVE); CLARITY,URINE CLEAR; COLOR,URINE YELLOW; GLUCOSE, URINE (UA) NEGATIVE (NEGATIVE); KETONES,URINE NEGATIVE (NEGATIVE); LEUKOCYTE ESTERASE ,URINE NEGATIVE (NEGATIVE); NITRITE,URINE NEGATIVE (NEGATIVE); PROTEIN,URINE NEGATIVE (NEGATIVE)
[2022-11-01 03:44] LABS: OCCULT BLOOD,GASTRIC FLUID POSITIVE (NEGATIVE)
[2022-11-01 03:48] LABS: AMORPHOUS SEDIMENT,UR FEW AMOR URATES /LPF; BACTERIA,URINE NEGATIVE /HPF
--- NOTE | 2022-11-01 04:35 | ED General ---
General Chief Complaint: Abdominal/GI Problems Stated Complaint: C-DIFF/UTI Nursing Triage Note: Pt presents with c/o nausea, vomiting and diarrhea that have worsened throughout the day. Pt was being treated for c-diff for past 2 weeks, she was also diagnosed with uti within the past week. Pt has had uncontrolled vomiting tonight. Source of Information: Patient, EMS, Family Exam Limitations: No Limitations History of Present Illness Date Seen by Provider: November 01, 2022 Time Seen by Provider: 01:28 Initial Comments This 72-year-old woman presents to the emergency room via EMS with complaints of uncontrolled nausea, vomiting, and diarrhea worsening throughout the day. She has a history of C. difficile recurrent for many years. She is a renal transplant patient who no longer requires dialysis. She is on immunosuppressive medications. She is being treated for urinary tract infection as well. and EMS report that there was a significant amount of emesis and diarrhea on and around the bed. Patient is extremely weak and was unable to get up to ambulate. She is alert and oriented but dry heaving on arrival. She seems mildly short of breath. She denies any pain. Allergies and Home Medications Allergies Coded Allergies: codeine (Unverified Allergy, Unknown, 02/12/17) morphine (Verified Allergy, Unknown, NAUSEA, 02/12/17) Patient Home Medication List Home Medication List Reviewed: Yes Alosetron HCl (Lotronex) 0.5 Mg Tab, 0.5 MG PO BID, (Reported) Entered as Reported by: MARISEL BARRY on 07/31/20 0530 Ascorbate Calcium (Vitamin C) 500 Mg Tablet, 500 MG PO DAILY, (Reported) Entered as Reported by: ANUSHKA LUNA on 08/29/16 0947 Aspirin (Adult Low Dose Aspirin EC) 81 Mg Tablet.dr, 81 MG PO DAILY, (Reported) Entered as Reported by: SANTIAGO VILLARREAL on 08/28/16 1842 Brinzolamide (Azopt) 10 Ml Btl, 1 DROP OD DAILY, (Reported) Entered as Reported by: ANUSHKA LUNA on 08/29/16 0947 Bupropion HCl (Bupropion HCl) 75 Mg Tablet, 75 MG PO DAILY, (Reported) Entered as Reported by: MALDONADO LAN on 11/18/20 1131 Cholecalciferol (Vitamin D3) (Vitamin D3) 125 Mcg Capsule, 125 MCG PO DAILY, (Reported) Entered as Reported by: SERG FRIED on 09/26/21 1103 Clonazepam (Clonazepam) 0.5 Mg Tablet, 0.25 MG PO BID, (Reported) Entered as Reported by: SERG FRIED on 09/26/21 1059 Cranberry Fruit (Cranberry) 450 Mg Tablet, 450 MG PO BID, (Reported) Entered as Reported by: MALDONADO LAN on 09/02/20 1517 Cyclosporine (Restasis) 1 Each [place]pe[place], 1 EACH OD BID, (Reported) Entered as Reported by: MALDONADO LAN on 03/23/20 1521 Dicyclomine HCl (Dicyclomine HCl) 20 Mg Tablet, 10 MG PO BID, (Reported) Entered as Reported by: MALDONADO LAN on 03/23/20 1518 Fluticasone Propionate (Flonase Allergy Relief) 9.9 Ml [place].susp, 2 SPRAY NS DAILY PRN for CONGESTION, (Reported) Entered as Reported by: MALDONADO LAN on 03/23/20 151 Gabapentin (Gabapentin) 600 Mg Tablet, 600 MG PO TID, (Reported) Entered as Reported by: MALDONADO LAN on 03/23/20 151 Hydrocodone/Acetaminophen (Hydrocodone-Acetamin 5-325 mg) 1 Each Tablet, 1 TAB PO Q4H PRN for PAIN-MODERATE (5-7) Prescribed by: CIERA MATTHEWS on 10/01/211757 Hyoscyamine Sulfate (Levsin-Sl) 0.125 Mg Tab.subl, 1-2 TAB SL Q4H PRN for CRAMPS Prescribed by: CIERA MATTHEWS on 10/01/211757 Hyoscyamine Sulfate (Levsin-Sl) 0.125 Mg Tab.subl, 1-2 MG SL Q4H PRN for CRAMPS Prescribed by: CIERA MATTHEWS on 07/15/22 1239 L.acidoph & Paracasei,B.lactis (Probiotic) 1 Each Capsule, 1 CAP PO DAILY, (Reported) Entered as Reported by: HUSSEIN LOPEZ on 04/02/15 0327 Loperamide HCl/Simethicone (Imodium Multi-Symptom Rel Cplt) 1 Each Tablet, 1 TAB PO DAILY PRN for DIARRHEA, (Reported) Entered as Reported by: HUSSEIN LOPEZ on 04/02/15 0324 Mirtazapine (Mirtazapine) 7.5 Mg Tablet, 7.5 MG PO DAILY, (Reported) Entered as Reported by: MARISEL BARRY on 07/31/20 0530 Multivitamin (Multivitamin) 1 Each Tablet, 1 EACH PO DAILY, (Reported) Entered as Reported by: MALDONADO LAN on 11/18/20 1131 Mycophenolate Sodium (Mycophenolic Acid) 180 Mg Tablet.dr, 180 MG PO BID, (Reported) Entered as Reported by: SERG FRIED on 09/26/21 1048 Nitrofurantoin Macrocrystal (Nitrofurantoin) 100 Mg Capsule, 100 MG PO BID Prescribed by: ROYCE OBREGON on 10/29/22 0617 Nitrofurantoin Monohyd/M-Cryst (Macrobid 100 mg Capsule) 100 Mg Capsule, 1 TAB PO BID Prescribed by: MAYANK DE LEÓN on 09/28/21 1455 Pitavastatin Calcium (Livalo) 2 Mg Tablet, 2 MG PO DAILY, (Reported) Entered as Reported by: SERG FRIED on 09/26/21 1052 Quetiapine Fumarate (Quetiapine Fumarate) 25 Mg Tablet, 25 MG PO 2100, (Reported) Entered as Reported by: MALDONADO LAN on 11/18/20 1131 Tacrolimus (Prograf) 1 Mg Capsule, 1 MG PO BID, (Reported) Entered as Reported by: HUSSEIN LOPEZ on 04/02/15 0327 Vancomycin HCl (Vancomycin HCl) 125 Mg Capsule, 125 MG PO QID Prescribed by: MAYANK DE LEÓN on 09/28/21 1440 Review of Systems Review of Systems Constitutional: no symptoms reported EENTM: no symptoms reported Respiratory: see HPI Cardiovascular: no symptoms reported Gastrointestinal: see HPI Genitourinary: see HPI : No Musculoskeletal: no symptoms reported Skin: no symptoms reported Psychiatric/Neurological: No Symptoms Reported Hematologic/Lymphatic: No Symptoms Reported Immunological/Allergic: see HPI Past Nqmeqnx-Lkkiih-Kgacfw Hx Patient Social History Tobacco Use?: No Use of E-Cig and/or Vaping dev: No Substance use?: No Alcohol Use?: No Immunizations Up To Date Tetanus Booster (TDap): Unknown PED Vaccines UTD: No First/Initial COVID19 Vaccinat: 08/08 Second COVID19 Vaccination Lg: 09/05 Third COVID19 Vaccination Date: 03/08 Seasonal Allergies Seasonal Allergies: Yes Past Medical History Surgery/Hospitalization HX: Atificial heart valve,Kidney disease, NM, Afib, HTN, frequent UTI fistula on right arm, Kidney Transplant Surgeries: Yes (COCHLEAR IMPLANT, CARDIAC ABLATION, AORTIC VALVE, KIDNEY TR ANSPLANT) Appendectomy, Cardiac, Dialysis, Ear Surgery, Eye Surgery, Hysterectomy, Kidney Transplant, Nephrectomy, Oophorectomy, Orthopedic, Renal, Tonsillectomy, Valve Replacement, Vascular Surgery (Fistula in right arm, no longer use) Respiratory: Yes Pneumonia Currently Using CPAP: No Currently Using BIPAP: No Cardiac: Yes ( CHF; AORTIC PIG VALVE FOR AORTIC STENOSIS ; PAROXYSMAL ATRIAL FIB. 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 Sexually Transmitted Disease: No HIV/AIDS: No Genitourinary: Yes (BILATERAL NEPHRECTOMY AND RENAL TRANSPLANT, dialysis prior to transplant) Kidney Infection, Bladder Infection, Renal Failure, UTI-Chronic Gastrointestinal: Yes (H.PYLORI; GASTROPARESIS) Colitis, Gastroesophageal Reflux, Chronic Diarrhea, Polyps, C-Diff, Irritable Bowel Musculoskeletal: Yes (FREQUENT FALLS/USES WALKER;CHRONIC GENERALIZED WEAKNESS) Degenerate Disk Disease, Arthritis, Chronic Back Pain Endocrine: Yes Parathyroid Disease, Diabetes, Non-Insulin dep HEENT: Yes (LEFT EYE REMOVED DUE TO UVEITIS; RIGHT COCHLEAR IMPLANT) Cataract, Glaucoma Hearing Impairment: Hard of Hearing, Hearing Aide Left Cancer: Yes Kidney Did You Recieve Any Treatments: Yes What Type of Treatment Did You: Surgical Intervention Psychosocial: Yes Anxiety, Depression Integumentary: No Blood Disorders: No Adverse Reaction/Blood Tranf: No (HAS HAD BLOOD WITH NO REACTION) Family Medical History Alzheimer's disease 19 MOTHER (later in life) Dementia 19 MOTHER No Pertinent Family Hx PAST SURGICAL HISTORY: -LEFT EYE REMOVED/ARTIFICIAL EYE DUE TO UVEITIS -RIGHT COCHLEAR IMPLANT -DIALYSIS SHUNT LEFT ARM--DIALYSIS X 4 YEARS -MULTIPLE REVISIONS OF DIALYSIS AV GRAFT -PERITONEAL DIALYSIS SHUNT -BILATERAL NEPHRECTOMY WITH RENAL TRANSPLANT-IN RLQ OF ABDOMEN--6 YEARS AGO--FOR POLYCYSTIC KIDNEY DISEASE -CARDIAC ABLATION -AORTIC VALVE REPLACEMENT WITH PIG VALVE FOR AORTIC STENOSIS -TONSILLECTOMY -APPENDECTOMY -HYSTERECTOMY/ LATER BSO -CARDIAC CATH 2010--NON-OBSTRUCTIVE DISEASE, NO INTERVENTION -BILATERAL PULMONARY VEIN ABLATION WITH STAPLE AMPTUATION OF LEFT ATRIAL APPENDAGE AT SAME TIME AORTIC VALVE REPLACEMENT -EGD/COLONOSCOPIES/POLYPECTOMIES -EXCISION OF LEFT HIP HEMATOMA 01/2017 [facility] [place]. Physical Exam Vital Signs Vital Signs - First Documented 11/01/22 01:38 Temp 36.4 Pulse 79 Resp 18 B/P (MAP) 179/97 (124) Capillary Refill : Less Than 3 Seconds Height, Weight, BMI Height: 5'1.00" Weight: 127lbs. 1.0oz. 57.784928te; 27.00 BMI Method:Stated General Appearance: WD/WN, Mild Distress HEENT: PERRL/EOMI, Normal ENT Inspection, Other (Cochlear implant on right posterior scalp) Neck: Normal Inspection Respiratory: Lungs Clear, Normal Breath Sounds, No Accessory Muscle Use Cardiovascular: Regular Rate, Rhythm, No Edema, No Murmur Gastrointestinal: Non Tender, Soft; No Distended Extremity: Normal Inspection, No Pedal Edema Neurologic/Psychiatric: Alert, Oriented x3, No Motor/Sensory Deficits, Normal Mood/Affect, Other (Hard of hearing, poor eyesight) Skin: Normal Color, Warm/Dry Progress/Results/Core Measures Suspected Sepsis SIRS Temperature: Pulse: 79 Respiratory Rate: 18 Laboratory Tests 11/01/22 01:40: White Blood Count 11.6H Blood Pressure 179 /97 Mean: 124 Laboratory Tests 11/01/22 01:40: Creatinine 0.74, Platelet Count 178, Total Bilirubin 0.5 Results/Orders Lab Results Laboratory Tests Test 11/01/22 01:40 11/01/22 03:25 Range/Units White Blood Count 11.6 H 4.3-11.0 10^3/uL Red Blood Count 4.72 3.80-5.11 10^6/uL Hemoglobin 13.7 11.5-16.0 g/dL Hematocrit 39 35-52 % Mean Corpuscular Volume 83 80-99 fL Mean Corpuscular Hemoglobin 29 25-34 pg Mean Corpuscular Hemoglobin Concent 35 32-36 g/dL Red Cell Distribution Width 13.8 10.0-14.5 % Platelet Count 178 130-400 10^3/uL Mean Platelet Volume 9.9 9.0-12.2 fL Immature Granulocyte % (Auto) 1 % Neutrophils (%) (Auto) 77 H 42-75 % Lymphocytes (%) (Auto) 17 12-44 % Monocytes (%) (Auto) 4 0-12 % Eosinophils (%) (Auto) 1 0-10 % Basophils (%) (Auto) 0 0-10 % Neutrophils # (Auto) 8.9 H 1.8-7.8 10^3/uL Lymphocytes # (Auto) 2.0 1.0-4.0 10^3/uL Monocytes # (Auto) 0.5 0.0-1.0 10^3/uL Eosinophils # (Auto) 0.1 0.0-0.3 10^3/uL Basophils # (Auto) 0.0 0.0-0.1 10^3/uL Immature Granulocyte # (Auto) 0.1 0.0-0.1 10^3/uL Sodium Level 138 135-145 MMOL/L Potassium Level 3.5 L 3.6-5.0 MMOL/L Chloride Level 106 98-107 MMOL/L Carbon Dioxide Level 20 L 21-32 MMOL/L Anion Gap 12 5-14 MMOL/L Blood Urea Nitrogen 8 7-18 MG/DL Creatinine 0.74 0.60-1.30 MG/DL Estimat Glomerular Filtration Rate 86 BUN/Creatinine Ratio 11 Glucose Level 169 H 70-105 MG/DL Calcium Level 9.4 8.5-10.1 MG/DL Corrected Calcium 9.2 8.5-10.1 MG/DL Magnesium Level 1.7 1.6-2.4 MG/DL Total Bilirubin 0.5 0.1-1.0 MG/DL Aspartate Amino Transf (AST/SGOT) 19 5-34 U/L Alanine Aminotransferase (ALT/SGPT) 16 0-55 U/L Alkaline Phosphatase 85 40-136 U/L Total Protein 7.2 6.4-8.2 GM/DL Albumin 4.2 3.2-4.5 GM/DL Urine Color YELLOW Urine Clarity CLEAR Urine pH 7.0 5-9 Urine Specific [place] 1.010 L 1.016-1.022 Urine Protein NEGATIVE NEGATIVE Urine Glucose (UA) NEGATIVE NEGATIVE Urine Ketones NEGATIVE NEGATIVE Urine Nitrite NEGATIVE NEGATIVE Urine Bilirubin NEGATIVE NEGATIVE Urine Urobilinogen 0.2 < = 1.0 MG/DL Urine Leukocyte Esterase NEGATIVE NEGATIVE Urine RBC (Auto) NEGATIVE NEGATIVE Urine RBC NONE /HPF Urine WBC NONE /HPF Urine Crystals PRESENT H /LPF Urine Amorphous Sediment FEW KATERYNA URATES H /LPF Urine Bacteria NEGATIVE /HPF Urine Casts NONE /LPF Urine Mucus NEGATIVE /LPF Urine Culture Indicated NO Gastric Fluid Occult Blood POSITIVE H NEGATIVE My Orders Orders - CIERA LOPEZ MD Cbc With Automated Diff (11/01/22 01:31) Comprehensive Metabolic Panel (11/01/22 01:31) Magnesium (11/01/22 01:31) Ed Iv/Invasive Line Start (11/01/22 01:31) Ondansetron Injection (Zofran Injectio (11/01/22 01:45) Occult Blood,Gastric Fluid (11/01/22 01:44) Pantoprazole Injection (Protonix Injecti (11/01/22 01:45) Lactated Ringers (Lr 1000 Ml Iv Solution (11/01/22 01:45) [place] Cath (11/01/22 01:49) Ua Culture If Indicated (11/01/22 01:49) Ns Iv 500 Ml (Sodium Chloride 0.9%) (11/01/22 04:45) Promethazine Injection (Phenergan Injec (11/01/22 04:45) Code/Resuscitation (11/01/22 04:37) Medications Given in ED Current Medications Medications Dose Ordered Sig/Lizzie Route Start Time Stop Time Status Last Admin Dose Admin Lactated Ringer's 1,000 ml @ 0 mls/hr Q0M ONCE IV 11/01/22 01:45 11/01/22 01:46 DC 11/01/22 01:55 0 MLS/HR Ondansetron HCl 8 mg ONCE ONCE IVP 11/01/22 01:45 11/01/22 01:46 DC 11/01/22 01:55 8 MG Pantoprazole 40 mg ONCE ONCE IV 11/01/22 01:45 11/01/22 01:46 DC 11/01/22 01:55 40 MG Promethazine HCl 25 mg ONCE ONCE IVP 11/01/22 04:45 11/01/22 04:46 DC 11/01/22 04:51 25 MG Sodium Chloride 500 ml @ 0 mls/hr Q0M ONCE IV 11/01/22 04:45 11/01/22 04:46 DC 11/01/22 04:51 0 MLS/HR Vital Signs/I&O 11/01/22 01:38 Temp 36.4 Pulse 79 Resp 18 B/P (MAP) 179/97 (124) Capillary Refill : Less Than 3 Seconds Blood Pressure Mean: 124 Progress Note : Progress Note Patient was interviewed and examined upon arrival. and EMS were also interviewed. She was properly treated with Zofran 8 mg IV. Gastric occult test was positive. Protonix 40 mg was given. Patient had persistent nausea after Zofran. This was treated further with Phenergan. She received an initial bolus of LR 1 L. This was followed by normal saline 500 mL given along with the Phenergan. Labs were all reviewed and interpreted by me. She had minimal leukocytosis on the CBC. CMP, magnesium, and urinalysis were all unremarkable. Glucose was minimally elevated. It would appear that patient is functionally having much difficulty managing at home and is in need of supportive care. Observation admission was pursued. We discussed CODE STATUS. Patient would like a modified code with cardiac code permitted but intubation prohibited. Dr. Gerber was notified of admission and excepted the patient. Departure Communication (Admissions) Time/Spoke to Admitting Phy: 04:32 Dr. Gerber Impression Primary Impression: Vomiting and diarrhea Additional Impressions: C. difficile colitis Hematemesis Qualified Codes: K92.0 - Hematemesis Generalized weakness Disposition: ADMITTED INPATIENT Condition: Improved Admissions Decision to Admit Reason: Admit from ER (General) Decision to Admit/Date: November 01, 2022 Time/Decision to Admit Time: 04:32 Departure-Patient Inst. Referrals: MALDONADO GARRETT DO (PCP/Family) Primary Care Physician Copy Copies To 1: MALDONADO GARRETT JOSHUA T MD November 01, 2022 04:35
[2022-11-01] MEDS ORDERED: NS IV 500 ML 500 ML IV ONE (04:45)
[2022-11-01] MEDS ORDERED: PROMETHAZINE INJ 25 MG/ML (PHENERGAN) AMP IVP ONE (04:45)
--- NOTE | 2022-11-01 05:22 | History & Physical-Hospitalist ---
History of Present Illness HPI/Chief Complaint CC: C diff colitis with dehydration HPI: This is a 72yoWF clinic patient of [facility] known to me from prior admits for C diff colitis who presented to the ER with complaints of diarrhea and C diff. She has been doing fairly well since she sees Urology at and maintained on chronic abx. ID was seen and she is not a candidate for fecal transplant due to immunosuppressives. Source: patient, family Exam Limitations: no limitations Date Seen 11/01/22 Time Seen by a Provider: 11:00 Attending Physician Jori Guerra DO PCP Admitting Physician: Attending Physician: Referring Physician Date of Admission Home Medications & Allergies Home Medications Reviewed patient Home Medication Reconciliation performed by pharmacy medication reconciliations senior manufacturing technician and/or nursing. Patients Allergies have been reviewed. Allergies Allergies Coded Allergies codeine (Unverified Allergy, Unknown, 02/12/17) morphine (Verified Allergy, Unknown, NAUSEA, 02/12/17) Past Xcepcyq-Sosiqh-Zaiuex Hx Patient Social History Marrital Status: Employed/Student: retired Smoking Status: Never a Smoker Immunizations Up To Date Date of Influenza Vaccine: Apr 07, 2021 First/Initial COVID19 Vaccinat: 08/08 Second COVID19 Vaccination Lg: 09/05 Tetanus Booster (TDap): Less Than 5 Years Hepatitis A: No Hepatitis B: No PED Vaccines UTD: No Date of Pneumonia Vaccine: Jul 30, 2020 Seasonal Allergies Seasonal Allergies: Yes Current Status Communicates: Verbally Primary Language: Tunisian Preferred Spoken Language: Tunisian Is interpretation needed?: No Past Medical History Surgeries: Appendectomy, Cardiac, Dialysis, Ear Surgery, Eye Surgery, Hysterectomy, Kidney Transplant, Nephrectomy, Oophorectomy, Orthopedic, Renal, T onsillectomy, Valve Replacement, Vascular Surgery Pneumonia Currently Using CPAP: No Currently Using BIPAP: No High Cholesterol, Hypertension Parkinson's Disease 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, 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 Aortic stenosis 2. Polycystic kidney disease 3. Depression 4. Hypertension 5. Hyperlipidemia 6. Paroxysmal atrial fibrillation 7. Diastolic dysfunction 8. 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 Gastroparesis Past surgical history 1. Tonsillectomy 2. Appendectomy 3. Hysterectomy 4. Right nephrectomy and transplant nephrectomy left 5. Aortic valve replacement with bilateral pulmonary vein ablation and staple amputation of the left atrial appendage Family Medical History Alzheimer's disease 19 MOTHER (later in life) Dementia 19 MOTHER No Pertinent Family Hx PAST SURGICAL HISTORY: -LEFT EYE REMOVED/ARTIFICIAL EYE DUE TO UVEITIS -RIGHT COCHLEAR IMPLANT -DIALYSIS SHUNT LEFT ARM--DIALYSIS X 4 YEARS -MULTIPLE REVISIONS OF DIALYSIS AV GRAFT -PERITONEAL DIALYSIS SHUNT -BILATERAL NEPHRECTOMY WITH RENAL TRANSPLANT-IN RLQ OF ABDOMEN--6 YEARS AGO--FOR POLYCYSTIC KIDNEY DISEASE -CARDIAC ABLATION -AORTIC VALVE REPLACEMENT WITH PIG VALVE FOR AORTIC STENOSIS -TONSILLECTOMY -APPENDECTOMY -HYSTERECTOMY/ LATER BSO -CARDIAC CATH 2010--NON-OBSTRUCTIVE DISEASE, NO INTERVENTION -BILATERAL PULMONARY VEIN ABLATION WITH STAPLE AMPTUATION OF LEFT ATRIAL APPENDAGE AT SAME TIME AORTIC VALVE REPLACEMENT -EGD/COLONOSCOPIES/POLYPECTOMIES -EXCISION OF LEFT HIP HEMATOMA 01/2017 [facility] [place]. Review of Systems Constitutional: see HPI, malaise, weakness Gastrointestinal: diarrhea Physical Exam Physical Exam Vital Signs Vital Signs - First Documented 11/01/22 11/01/22 01:38 06:01 Temp 36.4 Pulse 79 Resp 18 B/P (MAP) 179/97 (124) Pulse Ox 96 O2 Delivery Room Air Capillary Refill : Less Than 3 Seconds Height, Weight, BMI Height: 5'1.00" Weight: 127lbs. 1.0oz. 57.795199bw; 27.00 BMI Method:Stated General Appearance: No Apparent Distress, Anxious, Chronically ill Eyes: Right Eye Normal Inspection, Right Eye PERRL HEENT: PERRL/EOMI, Normal ENT Inspection, Pharynx Normal, Moist Mucous Membranes Neck: Full Range of Motion, Normal Inspection, Non Tender Respiratory: Chest Non Tender, Lungs Clear, Normal Breath Sounds, No Accessory Muscle Use, No Respiratory Distress Cardiovascular: Regular Rate, Rhythm, No Edema, No Gallop, No JVD, No Murmur, Normal Peripheral Pulses Gastrointestinal: Normal Bowel Sounds, No Organomegaly, No Pulsatile Mass, Non Tender, Soft Back: Normal Inspection, No CVA Tenderness, No Vertebral Tenderness Extremity: Normal Capillary Refill, Normal Inspection, Normal Range of Motion, Non Tender, No Calf Tenderness, No Pedal Edema Neurologic/Psychiatric: Alert, Oriented x3, No Motor/Sensory Deficits, Normal Mood/Affect Skin: Normal Color, Warm/Dry Lymphatic: No Adenopathy Results Results/Procedures Labs Laboratory Tests 11/01/22 01:40 Patient resulted labs reviewed. Assessment/Plan Admission Diagnosis Assessment: C diff colitis Chronic UTI Parkinsons disease Status: Chronic Generalized weakness Status: Chronic Hypertension GERD (gastroesophageal reflux disease) Status: Chronic Hyperlipidemia Status: Chronic Diabetes mellitus type 2 with complications Status: Chronic Renal transplant recipient Status: Chronic Hypokalemia Plan: Home meds [facility] Admission Status: JOSEPH Daniels DO November 01, 2022 05:22
[2022-11-01 06:01] VITALS: BP 160/82
[2022-11-01] MEDS ORDERED: fentaNYL INJ 100 MCG/2 ML AMP IV PRN (06:15)
[2022-11-01] MEDS ORDERED: ONDANSETRON 4 MG/2 ML (SDV) Z0FRAN IV PRN (06:15)
[2022-11-01] MEDS ORDERED: PROMETHAZINE INJ 25 MG/ML (PHENERGAN) AMP IVP PRN (06:15)
[2022-11-01] MEDS: LACTATED RINGERS 1,000 ML IV SCH ×3 (06:29→21:03)
[2022-11-01 07:18] VITALS: BP 153/73
[2022-11-01] MEDS ORDERED: VANCOMYCIN 125 MG CAPSULE PO SCH (08:00)
[2022-11-01] MEDS ORDERED: MIRT45TA75 PO (10:19)
[2022-11-01] MEDS ORDERED: NITR-65 PO (10:19)
[2022-11-01] MEDS ORDERED: METH1TAB21 PO (10:19)
[2022-11-01] MEDS ORDERED: UQORA PO (10:19)
[2022-11-01] MEDS ORDERED: TACR1CAP8 PO (10:19)
[2022-11-01] MEDS ORDERED: BUPR100T15 PO (10:19)
[2022-11-01] MEDS ORDERED: LOPE-175 PO (10:19)
[2022-11-01] MEDS ORDERED: VANC125C5 PO (10:19)
[2022-11-01] MEDS ORDERED: HYDR50CA3 PO (10:19)
[2022-11-01] MEDS ORDERED: LOPERAMIDE 2 MG (IMODIUM) TABLET PO PRN (10:45)
[2022-11-01] MEDS ORDERED: UQORA PO SCH (10:45)
[2022-11-01 11:06] VITALS: BP 160/84
[2022-11-01] MEDS ORDERED: FLUTICASONE NASAL SPRAY (FLONASE) 16 GM BTL NS PRN (11:30)
[2022-11-01] MEDS ORDERED: PATIENT MAY USE OWN MED,SINGLE MED PO SCH ×2 (12:00)
[2022-11-01] MEDS: GABAPENTIN 600 MG (NEURONTIN) TAB PO SCH ×2 (13:05→19:57)
[2022-11-01] MEDS: VANCOMYCIN 125 MG CAPSULE PO SCH ×3 (13:05→20:01)
[2022-11-01] MEDS ORDERED: ALPRAZolam 1 MG (XANAX) TAB PO PRN (15:15)
[2022-11-01 15:22] VITALS: BP 145/84
--- NOTE | 2022-11-01 15:29 | Physical Therapy Progress Note ---
Therapy Progress Note Attempted to see patient for PT initial evaluation. Patient reports she is too sick to get up. Will attempt evaluation again tomorrow and progress per patient tolerance. CABRERA AYOUB PT November 01, 2022 15:29
[2022-11-01] MEDS ORDERED: ENOXAPARIN 40 MG/0.4 ML (LOVENOX) SYR SC SCH (16:30)
[2022-11-01] MEDS ORDERED: ALPRAZolam 0.5 MG (XANAX) TAB PO PRN (16:45)
[2022-11-01 19:00] VITALS: BP 142/83
[2022-11-01] MEDS: ARTIFICAL TEARS 0.4 ML UNIT DOSE (REFRESH PLUS) OD SCH (19:56)
[2022-11-01] MEDS: [UNRECOGNIZED DRUG - REMARK] PO SCH (19:56)
[2022-11-01] MEDS: TACROLIMUS 1 MG (PROGRAF) CAP NON-FORM PO SCH (19:56)
[2022-11-01] MEDS: DICYCLOMINE 10 MG (BENTYL) CAP PO SCH (19:57)
[2022-11-01] MEDS: NON-FORMULARY MEDICATION 1 EA EA (Cranberry Fruit (Cranberry) 450 MG) PO SCH (19:59)
[2022-11-01] MEDS ORDERED: hydrOXYzine (VISTARIL/ATARAX) 25 MG capsule/tablet PO SCH (21:00)
[2022-11-01] MEDS ORDERED: clonazePAM 0.5 MG (KlonoPIN) TAB PO SCH (21:00)
[2022-11-01] MEDS ORDERED: NON-FORMULARY MEDICATION 1 EA EA (Cyclosporine (Restasis) 1 EACH) OD SCH (21:00)
[2022-11-01] MEDS ORDERED: MIRTAZAPINE 15 MG (REMERON) TAB PO SCH (21:00)
[2022-11-01 23:09] VITALS: BP 130/76
[2022-11-02 03:25] VITALS: BP 133/72
[2022-11-02 05:37] LABS: BASOPHILS # (AUTO) 0.1 10^3/uL (0.0-0.1); BASOPHILS % (AUTO) 1 % (0-10); EOSINOPHILS # (AUTO) 0.1 10^3/uL (0.0-0.3); EOSINOPHILS % (AUTO) 1 % (0-10); HEMATOCRIT 35 % (35-52); HEMOGLOBIN 12.4 g/dL (11.5-16.0); LYMPHOCYTES # (AUTO) 2.1 10^3/uL (1.0-4.0); LYMPHOCYTES % (AUTO) 29 % (12-44); MEAN CORPUSCULAR HEMOGLOBIN 30 pg (25-34); MEAN CORPUSCULAR HGB CONC 35 g/dL (32-36); MEAN CORPUSCULAR VOLUME 84 fL (80-99); MEAN PLATELET VOLUME 9.8 fL (9.0-12.2); MONOCYTES # (AUTO) 0.4 10^3/uL (0.0-1.0); MONOCYTES % (AUTO) 6 % (0-12); NEUTROPHILS # (AUTO) 4.6 10^3/uL (1.8-7.8); NEUTROPHILS % (AUTO) 63 % (42-75); PLATELET COUNT 189 10^3/uL (130-400); WHITE BLOOD COUNT 7.3 10^3/uL (4.3-11.0)
[2022-11-02 05:50] LABS: ALBUMIN 3.4 GM/DL (3.2-4.5); BILIRUBIN,TOTAL 0.7 MG/DL (0.1-1.0); CALCIUM 8.8 MG/DL (8.5-10.1); CREATININE SERUM 0.78 MG/DL (0.60-1.30); POTASSIUM 3.5 MMOL/L (3.6-5.0); TOTAL PROTEIN 5.9 GM/DL (6.4-8.2)
[2022-11-02] MEDS: LACTATED RINGERS 1,000 ML IV SCH (06:58)
[2022-11-02 07:13] VITALS: BP 169/86
[2022-11-02] MEDS: VANCOMYCIN 125 MG CAPSULE PO SCH (08:38)
[2022-11-02] MEDS: GABAPENTIN 600 MG (NEURONTIN) TAB PO SCH (08:39)
[2022-11-02] MEDS: ARTIFICAL TEARS 0.4 ML UNIT DOSE (REFRESH PLUS) OD SCH (08:40)
[2022-11-02] MEDS: DICYCLOMINE 10 MG (BENTYL) CAP PO SCH (08:40)
[2022-11-02] MEDS: TACROLIMUS 1 MG (PROGRAF) CAP NON-FORM PO SCH (08:41)
[2022-11-02] MEDS: NON-FORMULARY MEDICATION 1 EA EA (Cranberry Fruit (Cranberry) 450 MG) PO SCH (08:42)
[2022-11-02] MEDS: [UNRECOGNIZED DRUG - REMARK] PO SCH (08:42)
[2022-11-02] MEDS ORDERED: NON-FORMULARY MEDICATION 1 EA EA (Pitavastatin Calcium (Livalo) 2 MG) PO SCH (09:00)
[2022-11-02] MEDS ORDERED: AtorvaSTATin TABLET 10 MG TABLET PO SCH (09:00)
[2022-11-02] MEDS ORDERED: ASPIRIN E.C. 81 MG (ECOTRIN) TAB PO SCH (09:00)
[2022-11-02] MEDS ORDERED: VITAMIN D3 125 MCG (5,000 UNITS) CAPSULE PO SCH (09:00)
[2022-11-02] MEDS ORDERED: METHENAMINE HIPP (UREX) 1 GM TABLET PO SCH (09:00)
[2022-11-02] MEDS ORDERED: BRINZOLAMIDE OD SCH (09:00)
[2022-11-02] MEDS ORDERED: ASCORBIC ACID (VIT C) 500 MG TABLET PO SCH (09:00)
[2022-11-02] MEDS ORDERED: PANTOPRAZOLE 40 MG (PROTONIX) VIAL IV SCH (09:00)
[2022-11-02] MEDS ORDERED: buPROPion 100 MG (WELLBUTRIN) TAB PO SCH (09:00)
[2022-11-02] MEDS ORDERED: LACTOBACILLUS ACIDOPHILUS (PROBIOTIC) CAPSULE PO SCH (09:00)
[2022-11-02] MEDS ORDERED: DORZOLAMIDE 2% 10 ML BTL (TRUSOPT) OD SCH (09:00)
--- NOTE | 2022-11-02 10:54 | Physical Therapy Evaluation ---
PT Evaluation-General Medical Diagnosis Admission Date November 01, 2022 at 05:46 Medical Diagnosis: vomiting,diarrhea,C-diff/UTI Onset Date: November 01, 2022 Therapy Diagnosis Therapy Diagnosis: debility Height/Weight Height (Feet): 5 Height (Inches): 1.00 Weight (Pounds): 127 Weight (Ounces): 1.0 Precautions Precautions/Isolations: Contact Isolation, Fall Prevention Referral Physician: Zabrina Reason for Referral: Evaluation/Treatment Medical History Pertinent Medical History: Atrial Fib, HTN, Neuropathy, Parkinson's, Renal Insufficiency Additional Medical History cochlear implant/kidney transplant Current History EMS from home secondary to weakness Reviewed History: Yes Social History Home: Single Level Current Living Status: Spouse Entry Into Home: Level Entry Prior Prior Level of Function SCALE: Activities may be completed with or without assistive devices. 4-Stsgrfxxrk-bbpdziu completes the activity by him/herself with no assistance from a helper. 5-Set-up or Clean-up Assistance-helper sets up or cleans up; patient completes activity. [place] assists only prior to or following the activity. 4-Supervision or Touching Assistance-helper provides verbal cues and/or touching/steadying and/or contact guard assistance as patient completes activ ity. Assistance may be provided throughout the activity or intermittently. 3-Partial/Moderate Assistance-helper does LESS THAN HALF the effort. [place] lifts, holds or supports trunk or limbs, but provides less than half the effort. 2-Substantial/Maximal Assistance-helper does MORE THAN HALF the effort. [place] lifts or holds trunk or limbs and provides more than half the effort. 8-Qgsjcswqp-txmptx does ALL the effort. Patient does none of the effort to complete the activity. Or, the assistance of 2 or more helpers is required for the patient to complete the activity. If activity was not attempted, code reason: 7-Patient Refused. 9-Not Applicable-not attempted and the patient did not perform the activity before the current illness, exacerbation or injury. 10-Not Attempted due to Environmental Limitations-(lack of equipment, weather restraints, etc.). 88-Not Attempted due to Medical Conditions or Safety Concerns. Bed Mobility: 6 Transfers (B,C,W/C): 6 Gait: 6 Stairs: 9 Indoor Mobility (Ambulation): Independent Prior Devices Use: Walker (upright) PT Evaluation-Current Subjective Patient agrees to PT. Objective Patient Orientation: Normal For Age Attachments: Kong Catheter, IV ROM/Strength ROM Lower Extremities bilateral LE WFL Strength Lower Extremities 3+/5 grossly bilateral LE all planes Integumentary/Posture Bladder Incontinence: Kong Cath Posture WFL Neuromuscular (Tone, Coordination, Reflexes) grossly intact/noted tremors right hand Sensory Vision: Wears Glasses Hearing: Impaired Transfers Lying to Sitting/Side of Bed(Q: 6 Sit to Stand (QC): 4 Chair/Nnh-fq-Reofw Xfer(QC): 4 Gait Mode of Locomotion: Walk Anticipated Mode of Locomotion: Walk Walk 10 feet (QC): 4 Walk 50 ft with 2 Turns(QC): 4 Walk 150 ft (QC): 4 Distance: 180' Gait Assistive Device: FWW Comments/Gait Description steady gait sequence/CGA for safety Balance Sitting Static: Normal Sitting Dynamic: Normal Standing Static: Fair Standing Dynamic: Fair Assessment/Needs Patient will benefit from skilled PT to address functional strength and mobility to improve current LOF to safely return to home at maximum LOF. Rehab Potential: Fair PT Longterm Goals [place] [facility] Goals PT Longterm Goals Time Frame: November 11, 2022 Roll Left & Right (QC): 6 Sit to Lying (QC): 6 Lying-Sitting on Side/Bed(QC): 6 Sit to Stand (QC): 6 Chair/Nuw-rs-Jtkkr Xfer(QC): 6 Toilet Transfer (QC): 6 Walk 10 feet (QC): 6 Walk 50ft with 2 Turns (QC): 6 Walk 150 ft (QC): 6 PT Plan Problem List Problem List: Activity Tolerance, Functional Strength, Safety, Balance, Gait, Transfer, Bed Mobility Treatment/Plan Treatment Plan: Continue Plan of Care Treatment Plan: Bed Mobility, Education, Functional Activity Jose, Functional Strength, Gait, Safety, Therapeutic Exercise, Transfers Treatment Duration: November 11, 2022 Frequency: 6 times per week Estimated Hrs Per Day: .25 hour per day Patient and/or Family Agrees t: Yes Time Time In: 958 Time Out: 1011 DATE: November 02, 2022 Total Billed Treatment Time: 13 Total Billed Treatment 1 visit EVMod 13 min SARIAH VALLADARES PT November 02, 2022 10:54
--- NOTE | 2022-11-02 10:58 | Occupational Therapy Eval ---
OT Evaluation-General/PLF Medical Diagnosis Admission Date November 01, 2022 at 05:46 Medical Diagnosis: V/D/ UTI, c- diff Onset Date: November 01, 2022 Therapy Diagnosis Therapy Diagnosis: weakness Height/Weight Height (Feet): 5 Height (Inches): 1.00 Weight (Pounds): 127 Weight (Ounces): 1.0 Precautions Precautions/Isolations: Contact Isolation, Fall Prevention Weight Bear Status Weight Bearing Restriction: Weight Bearing/Tolerated Referral Referral Reason: Evaluation/Treatment Medical History Pertinent Medical History: Atrial Fib, HTN, Neuropathy, Parkinson's, Renal Insufficiency Reviewed History: Yes Social History Home: Single Level Entry Into Home: Level Entry ADL-Prior Level of Function SCALE: Activities may be completed with or without assistive devices. 5-Jqoxzyfrmo-aznuokb completes the activity by him/herself with no assistance from a helper. 5-Set-up or Clean-up Assistance-helper sets up or cleans up; patient completes activity. [place] assists only prior to or following the activity. 4-Supervision or Touching Assistance-helper provides verbal cues and/or touching/steadying and/or contact guard assistance as patient completes activity. Assistance may be provided throughout the activity or intermittently. 3-Partial/Moderate Assistance-helper does LESS THAN HALF the effort. [place] lifts, holds or supports trunk or limbs, but provides less than half the effort. 2-Substantial/Maximal Assistance-helper does MORE THAN HALF the effort. [place] lifts or holds trunk or limbs and provides more than half the effort. 5-Dbhvducar-kpeqrk does ALL the effort. Patient does none of the effort to complete the activity. Or, the assistance of 2 or more helpers is required for the patient to complete the activity. If activity was not attempted, code reason: 7-Patient Refused. 9-Not Applicable-not attempted and the patient did not perform the activity before the current illness, exacerbation or injury. 10-Not Attempted due to Environmental Limitations-(lack of equipment, weather restraints, etc.). 88-Not Attempted due to Medical Conditions or Safety Concerns. Self Care: Independent Functional Cognition: Independent OT Current Status Subjective Restring in bed, agreeable to tOT Mental Status/Objective Patient Orientation: Person, Place, Time, Situation Attachments: Kong Catheter, IV Current Glasses/Contacts: Yes Hearing Aids: Yes (implant) Upper Extremity ROM BUE ROM WFLS Upper Extremity Strength -4/5 grossly ADL-Treatment Eating (QC): 7 Oral Hygiene (QC): 5 Shower/Bathe Self (QC): 7 Upper Body Dressing (QC): 5 Lower Body Dressing (QC): 4 On/Off Footwear (QC): 5 Toileting Hygiene (QC): 5 Education OT Patient Education: Correct positioning, Disease process, Modified ADL techniques, Progress toward Goal/Update tx plan, Purpose of tx/functional activities, Reviewed precautions, Rehab process, Safety issues, Transfer techniques, Use of adapted equipment Teaching Recipient: Patient Teaching Methods: Demonstration, Discussion Response to Teaching: Verbalize Understanding, Reinforcement Needed OT Client Sales And Service Officer Goals Client Sales And Service Officer Goals Eating (QC): 6 Oral Hygiene (QC): 6 Toileting Hygiene (QC): 6 Shower/Bathe Self (QC): 6 Upper Body Dressing (QC): 6 Lower Body Dressing (QC): 6 On/Off Footwear (QC): 6 1=Demonstrate adherence to instructed precautions during ADL tasks. 2=Patient will verbalize/demonstrate understanding of assistive devices/modifications for ADL. 3=Patient will improve strength/tolerance for activity to enable patient to perform ADL's. OT Education/Plan Problem List/Assessment Assessment: Decreased Activ Tolerance, Impaired Self-Care Skills Discharge Recommendations Plan/Recommendations: Continue POC Treatment Plan/Plan of Care Treatment,Training & Education: Yes Patient would benefit from OT for education, treatment and training to promote independence in ADL's, mobility, safety and/or upper extremity function for ADL's. Plan of Care: ADL Retraining, Functional Mobility, Group Exercise/Act as Ind, UE Funct Exercise/Act, UE Neuromus Re-Ed/Coord Treatment Duration: November 04, 2022 Frequency: 3 times per week Estimated Hrs Per Day: .25 hour per day Agreement: Yes Rehab Potential: Good Time Start Time: 09:49 Stop Time: 10:12 DATE: November 02, 2022 Total Time Billed (hr/min): 23 Billed Treatment Time AVL, ADL 23 min AMANDA FLORES OT November 02, 2022 10:58
[2022-11-02 11:09] VITALS: BP 144/76
[2022-11-02] MEDS ORDERED: VANC125C5 PO (11:13)
[2022-11-02] MEDS ORDERED: ALPR0.5T7 PO (11:13)
--- NOTE | 2022-11-02 11:15 | D/C HH Face to Face Order ---
D/C Face to Face Orders Reconcile Patient Problems Problems Reviewed?: Yes Instructions for Patient Via [facility] [employer], Patient Instructions/FollowUp: PCP 1 week Physician to follow Patient: [facility] Discharge Diet for Home: No Restrictions Patient Problems: C diff Patient Data-Allergies,Ht & Wt Patient Allergies: Coded Allergies: codeine (Unverified Allergy, Unknown, 02/12/17) morphine (Verified Allergy, Unknown, NAUSEA, 02/12/17) Height (Feet): 5 Height (Inches): 1.00 Weight (Pounds): 127 Weight (Ounces): 1.0 Home Health Need/Face to Face Date of Face to Face: November 02, 2022 Clinical Findings: Generalized weakness and fatigue, Instability, Muscle weakness I have seen Pt [id number]: Yes Discharged To: Home Diagnosis/Conditions: Debility Patient is Homebound due to: [place] fall risk due to instabilty, Muscle weakness Homebound Status Due to the above stated illness, injury or surgical procedure (medical condition or diagnosis) and associated clinical findings, the patient is homebound because of his/her inability to leave home except with aid of a supportive device and/or person AND leaving the home requires a considerable and taxing effort or is medically contraindicated. Pt req the following assistanc: Walker Home Health Nursing Orders Home Health Services Order: Nursing Services, Human Capital Analyst-Evaluate & Treat, Physical Therapy-Evaluate & Treat Home Health Infusion Therapy Line Start Date: November 01, 2022 Certify Stmt I certify that this patient is under my care and that I, a nurse practitioner or a physician; a pediatric physical therapy assistant working with me, had a face to face encounter that - meets the physician face to face encounter requirements with this patient as dated. JOSEPH DRIVER DO November 02, 2022 11:15
--- NOTE | 2022-11-02 11:16 | Discharge Summary ---
Discharge Summary Hospital Course Was the Problem List Reviewed?: Yes Problems/Dx: (1) C. difficile colitis Status: Acute (2) Generalized weakness Status: Acute (3) Diarrhea Status: Acute Hospital Course Date of Admission: November 01, 2022 at 05:46 Admission Diagnosis : Family Physician/Provider: Jori Guerra DO Date of Discharge: 11/02/22 Discharge Diagnosis: [ ] Hospital Course: Uneventful course after she was admitted for observation for dehydration from C diff colitis. UA was normal so all meds were restarted and ultimately she was able to walk with her walker so ordered and she was DC Labs and Pending Lab Test: Laboratory Tests 11/02/22 05:07: White Blood Count 7.3, Red Blood Count 4.21, Hemoglobin 12.4, Hematocrit 35, Mean Corpuscular Volume 84, Mean Corpuscular Hemoglobin 30, Mean Corpuscular Hemoglobin Concent 35, Red Cell Distribution Width 14.0, Platelet Count 189, Mean Platelet Volume 9.8, Immature Granulocyte % (Auto) 0, Neutrophils (%) (Auto) 63, Lymphocytes (%) (Auto) 29, Monocytes (%) (Auto) 6, Eosinophils (%) (Auto) 1, Basophils (%) (Auto) 1, Neutrophils # (Auto) 4.6, Lymphocytes # (Auto) 2.1, Monocytes # (Auto) 0.4, Eosinophils # (Auto) 0.1, Basophils # (Auto) 0.1, Immature Granulocyte # (Auto) 0.0, Sodium Level 141, Potassium Level 3.5L, Chloride Level 111H, Carbon Dioxide Level 22, Anion Gap 8, Blood Urea Nitrogen 5L, Creatinine 0.78, Estimat Glomerular Filtration Rate 81, BUN/Creatinine Ratio 6, Glucose Level 87, Calcium Level 8.8, Corrected Calcium 9.3, Total Bilirubin 0.7, Aspartate Amino Transf (AST/SGOT) 16, Alanine Aminotransferase (ALT/SGPT) 8, Alkaline Phosphatase 62, Total Protein 5.9L, Albumin 3.4 Home Meds Active Alprazolam 0.5 Mg Tablet 0.5 Mg PO Q4HR PRN Vancomycin HCl 125 Mg Capsule 125 Mg PO QID 1 pill four times daily for 1 week then 1 pill three times daily for 1 week then maintain on twice daily Reported [[place]] 1 Packet PO Q72H Vancomycin HCl 125 Mg Capsule 125 Mg PO BID PRN FINISHED 125MG FOUR TIMES DAILY X 5 DAYS YESTERDAY AND 11-01 WOULD BE 125MG TWICE DAILY X 5 DAYS- THIS IS ONLY TAKEN NEEDED FOR C-DIFF Macrobid 100 mg Capsule (Nitrofurantoin Monohyd/M-Cryst) 100 Mg Capsule 1 Tab PO BID FILLED 10-29-2022 #10/5 DAY SUPPLY Methenamine Hippurate 1 Gram Tablet 1 Gm PO DAILY Bupropion HCl 100 Mg Tablet 100 Mg PO DAILY Hydroxyzine Pamoate 50 Mg Capsule 50 Mg PO HS Mirtazapine 45 Mg Tablet 45 Mg PO HS Tacrolimus 1 Mg Capsule 1 Mg PO BID Imodium A-D (Loperamide HCl) 2 Mg Capsule 2-4 Mg PO UD PRN FOLLOW PACKAGE DIRECTIONS Vitamin D3 (Cholecalciferol (Vitamin D3)) 125 Mcg Capsule 125 Mcg PO DAILY Clonazepam 0.5 Mg Tablet 0.5 Mg PO HS Livalo (Pitavastatin Calcium) 2 Mg Tablet 2 Mg PO DAILY Mycophenolic Acid (Mycophenolate Sodium) 180 Mg Tablet.dr 180 Mg PO BID Cranberry (Cranberry Fruit) 450 Mg Tablet 450 Mg PO BID Restasis (Cyclosporine) 1 Each Droperette 1 Each OD BID Dicyclomine HCl 20 Mg Tablet 10 Mg PO BID TAKES 1/2 OF A 20MG TAB Gabapentin 600 Mg Tablet 600 Mg PO TID Flonase Allergy Relief (Fluticasone Propionate) 9.9 Ml [place].susp 2 [place] NS DAILY PRN Azopt (Brinzolamide) 10 Ml Btl 1 Drop OD DAILY Vitamin C (Ascorbate Calcium) 500 Mg Tablet 500 Mg PO DAILY Adult Low Dose Aspirin EC (Aspirin) 81 Mg Tablet. 81 Mg PO DAILY Probiotic (L.acidoph & Paracasei,B.lactis) 1 Each Capsule 1 Cap PO DAILY Assessment/Pt Instructions PCP 1 week Discharge Planning: <30 minutes discharge planning Discharge Instructions Discharge Diet: No Restrictions Discharge Physical Examination Vital Signs Vital Signs Date Time Temp Pulse Resp B/P (MAP) Pulse Ox O2 Delivery O2 Flow Rate FiO2 11/02/22 08:30 Room Air 11/02/22 07:13 36.6 80 16 169/86 (046) 91 General Appearance: No Apparent Distress, WD/WN, Chronically ill Allergies: Coded Allergies: codeine (Unverified Allergy, Unknown, 02/12/17) morphine (Verified Allergy, Unknown, NAUSEA, 02/12/17) Discharge Summary Date of Admission November 01, 2022 at 05:46 Date of Discharge Discharge Date: November 02, 2022 Admission Diagnosis Assessment: C diff colitis Chronic UTI Parkinsons disease Status: Chronic Generalized weakness Status: Chronic Hypertension GERD (gastroesophageal reflux disease) Status: Chronic Hyperlipidemia Status: Chronic Diabetes mellitus type 2 with complications Status: Chronic Renal transplant recipient Status: Chronic Hypokalemia Plan: Home meds [facility] JOSEPH DRIVER DO November 02, 2022 11:16
[2022-11-03] MEDS ORDERED: PANTOPRAZOLE 40 MG (PROTONIX) TAB PO SCH (09:00)
== END 2022-11-02 12:54 | disposition home health service (06) ==
LOC: EDUNIT# 01:23 → ER 01:24 → 4TH 05:46 → UNDOADMOB 05:46 → 4TH 05:56 → UNDODISOB 11-02 12:54
PROVIDERS: ADMIT Internal Medicine; ATTEND Internal Medicine
DX: A04.72 Enterocolitis due to Clostridium difficile, not specified as recurrent (principal); G20 Parkinson's disease; R53.1 Weakness; I10 Essential (primary) hypertension; D84.9 Immunodeficiency, unspecified; K21.9 Gastro-esophageal reflux disease without esophagitis; E78.5 Hyperlipidemia, unspecified; E11.8 Type 2 diabetes mellitus with unspecified complications; E87.6 Hypokalemia; K92.0 Hematemesis; Z94.0 Kidney transplant status
CPT/HCPCS: 51702; 80053 ×2; 81000; 82271; 83735; 85025 ×2; 96361; 96372; 96375; 96376 ×2; 97162; 97165; 97535; 99284; G0378; 36415

== ENCOUNTER 2022-12-21 19:47 | Emergency (ER) | payer MEDICARE ==
[~2022-12-21] VITALS: Ht 152 cm; Wt 68.7 kg
[~2022-12-21 19:47] MED LIST changes: +HYDR50CA3 PO; +LOPE-175 PO; +METH1TAB21 PO; +MIRT45TA75 PO; +POTA-330 PO; -POTA-51 PO; +TACR1CAP8 PO; +UQORA PO
[2022-12-21] MEDS ORDERED: LORazepam INJ 2 MG/ML (ATIVAN) VIAL IVP ONE (20:15)
[2022-12-21] MEDS ORDERED: fentaNYL INJ 100 MCG/2 ML AMP IVP ONE (20:15)
--- NOTE | 2022-12-21 20:32 | ED General ---
General Chief Complaint: Abdominal/GI Problems Stated Complaint: N/V Nursing Triage Note: TO ED VIA [facility] FROM HOME TO ROOM 5. PT STATES SHE HAS HAD NAUSEA ON AND OFF ALL DAY. 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 EMS GAVE PHENERGAN EN ROUTE. ELEVATED BP ON ARRIVAL. PT STATES SHE HAS TAKEN ALL HOME MEDS EXCEPT FOR HS MEDS. HX CDIFF, HTN, APPENDECTOMY. 22G IV STARTED IN LEFT HAND LITERACY SPECIALIST BY EMS EN ROUTE. Source of Information: Patient, EMS, Family, Old Records Exam Limitations: No Limitations History of Present Illness Date Seen by Provider: Dec 21, 2022 Time Seen by Provider: 20:00 Initial Comments This is 72-year-old woman presents to the emergency room via EMS with relatively sudden onset of nausea and vomiting. She has been nauseated intermittently throughout the day but suddenly had exacerbation of the nausea accompanied by vomiting this evening. This was accompanied by right lower quadrant pain and dizziness described as a vertigo type of the sensation. She received Phenergan in route by EMS which resolved the nausea and vomiting. She does still feel a bit dizzy and continues to have right lower quadrant pain. She has history of a renal transplant and is on antirejection medication. She does have pain in the right lower quadrant from time to time related to the transplant, but she states this pain is more intense than her usual. She has a history of C. difficile as well as recurrent problems with constipation. She did have a bowel movement earlier today and denies present constipation or diarrhea. She does not appear to have any focal neurologic deficits. She is notably hypertensive on arrival. She has not noted any urinary changes and has no history of ureteral stones. Allergies and Home Medications Allergies Coded Allergies: codeine (Unverified Allergy, Unknown, 02/12/17) morphine (Verified Allergy, Unknown, NAUSEA, 02/12/17) Patient Home Medication List Home Medication List Reviewed: Yes Alprazolam (Alprazolam) 0.5 Mg Tablet, 0.5 MG PO Q4HR PRN for ANXIETY Prescribed by: JOSEPH DRIVER on 11/02/22 1114 Ascorbate Calcium (Vitamin C) 500 Mg Tablet, 500 MG PO DAILY, (Reported) Entered as Reported by: ANUSHKA LUNA on 08/29/16 0947 Aspirin (Adult Low Dose Aspirin EC) 81 Mg Tablet.dr, 81 MG PO DAILY, (Reported) Entered as Reported by: SANTIAGO VILLARREAL on 08/28/16 1842 Brinzolamide (Azopt) 10 Ml Btl, 1 DROP OD DAILY, (Reported) Entered as Reported by: ANUSHKA LUNA on 08/29/16 0947 Bupropion HCl (Bupropion HCl) 100 Mg Tablet, 100 MG PO DAILY, (Reported) Entered as Reported by: MALDONADO LAN on 11/01/22 1019 Cholecalciferol (Vitamin D3) (Vitamin D3) 125 Mcg Capsule, 125 MCG PO DAILY, (Reported) Entered as Reported by: SERG FRIED on 09/26/21 1103 Clonazepam (Clonazepam) 0.5 Mg Tablet, 0.5 MG PO HS, (Reported) Entered as Reported by: SERG FRIED on 09/26/21 1059 Cranberry Fruit (Cranberry) 450 Mg Tablet, 450 MG PO BID, (Reported) Entered as Reported by: MALDONADO LAN on 09/02/20 1517 Cyclosporine (Restasis) 1 Each Droperette, 1 EACH OD BID, (Reported) Entered as Reported by: MALDONADO LAN on 03/23/20 1521 Dicyclomine HCl (Dicyclomine HCl) 20 Mg Tablet, 10 MG PO BID, (Reported) Entered as Reported by: MALDONADO LAN on 03/23/20 1518 Fluticasone Propionate (Flonase Allergy Relief) 9.9 Ml [place].susp, 2 SPRAY NS DAILY PRN for CONGESTION, (Reported) Entered as Reported by: MALDONADO LAN on 03/23/20 1518 Gabapentin (Gabapentin) 600 Mg Tablet, 600 MG PO TID, (Reported) Entered as Reported by: MALDONADO LAN on 03/23/20 1518 Hydroxyzine Pamoate (Hydroxyzine Pamoate) 50 Mg Capsule, 50 MG PO HS, (Reported) Entered as Reported by: MALDONADO LAN on 11/01/22 1019 L.acidoph & Paracasei,B.lactis (Probiotic) 1 Each Capsule, 1 CAP PO DAILY, (Reported) Entered as Reported by: HUSSEIN LOPEZ on 04/02/15 0327 Loperamide HCl (Imodium A-D) 2 Mg Capsule, 2-4 MG PO UD PRN for DIARRHEA, (Reported) Entered as Reported by: MALDONADO LAN on 11/01/22 1019 Methenamine Hippurate (Methenamine Hippurate) 1 Gram Tablet, 1 GM PO DAILY, (Reported) Entered as Reported by: MALDONADO LAN on 11/01/22 1019 Mirtazapine (Mirtazapine) 45 Mg Tablet, 45 MG PO HS, (Reported) Entered as Reported by: MALDONADO LAN on 11/01/22 1019 Mycophenolate Sodium (Mycophenolic Acid) 180 Mg Tablet.dr, 180 MG PO BID, (Reported) Entered as Reported by: SERG FRIED on 09/26/21 1048 Nitrofurantoin Monohyd/M-Cryst (Macrobid 100 mg Capsule) 100 Mg Capsule, 1 TAB PO BID Prescribed by: CIERA MATTHEWS on 12/21/22 224 Ondansetron (Ondansetron Odt) 4 Mg Tab.rapdis, 4 MG SL Q4H PRN for NAUSEA/VOMITING Prescribed by: CIERA MATTHEWS on 12/21/22 2241 Pitavastatin Calcium (Livalo) 2 Mg Tablet, 2 MG PO DAILY, (Reported) Entered as Reported by: SERG FRIED on 09/26/21 1052 Tacrolimus (Tacrolimus) 1 Mg Capsule, 1 MG PO BID, (Reported) Entered as Reported by: MALDONADO LAN on 11/01/22 1019 Vancomycin HCl (Vancomycin HCl) 125 Mg Capsule, 125 MG PO QID Prescribed by: JOSEPH DRIVER on 11/02/22 1113 [Uqora] , 1 PACKET PO Q72H, (Reported) Entered as Reported by: MALDONADO LAN on 11/01/22 1019 Review of Systems Review of Systems Constitutional: no symptoms reported EENTM: see HPI Respiratory: no symptoms reported Cardiovascular: see HPI Gastrointestinal: see HPI Genitourinary: no symptoms reported : No Musculoskeletal: no symptoms reported Skin: no symptoms reported Psychiatric/Neurological: See HPI Hematologic/Lymphatic: No Symptoms Reported Immunological/Allergic: no symptoms reported Past Jidenqm-Fuwzzx-Igvnzy Hx Patient Social History Tobacco Use?: No Substance use?: No Alcohol Use?: No Immunizations Up To Date Tetanus Booster (TDap): Unknown PED Vaccines UTD: No First/Initial COVID19 Vaccinat: 08/08 Second COVID19 Vaccination Lg: 09/05 Third COVID19 Vaccination Date: 03/08 Seasonal Allergies Seasonal Allergies: Yes Past Medical History Surgery/Hospitalization HX: Atificial heart valve,Kidney disease, VT, Afib, HTN, frequent UTI fistula on right arm, Kidney Transplant Surgeries: Yes (COCHLEAR IMPLANT, CARDIAC ABLATION, AORTIC VALVE, KIDNEY TRANSPLANT) Appendectomy, Cardiac, Dialysis, Ear Surgery (Right cochlear implant), Eye Surgery, Hysterectomy, Kidney Transplant, Nephrectomy, Oophorectomy, Orthopedic, Renal, Tonsillectomy, Valve Replacement, Vascular Surgery Respiratory: Yes Pneumonia Currently Using CPAP: No Currently Using BIPAP: No Cardiac: Yes ( CHF; AORTIC PIG VALVE FOR AORTIC STENOSIS ; PAROXYSMAL ATRIAL FIB. 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, Menopausal Sexually Transmitted Disease: No HIV/AIDS: No Genitourinary: Yes (BILATERAL NEPHRECTOMY AND RENAL TRANSPLANT, dialysis prior to transplant) Kidney Infection, Bladder Infection, Renal Failure, UTI-Chronic Gastrointestinal: Yes (H.PYLORI; GASTROPARESIS) Colitis, Gastroesophageal Reflux, Chronic Diarrhea, Polyps, C-Diff, Irritable Bowel Musculoskeletal: Yes (FREQUENT FALLS/USES WALKER;CHRONIC GENERALIZED WEAKNESS) Degenerate Disk Disease, Arthritis, Chronic Back Pain Endocrine: Yes Parathyroid Disease, Diabetes, Non-Insulin dep HEENT: Yes (LEFT EYE REMOVED DUE TO UVEITIS; RIGHT COCHLEAR IMPLANT) Cataract, Glaucoma Loss of Vision: Left (Artificial left eye) Hearing Impairment: Hard of Hearing, Hearing Aide Left Cancer: Yes Kidney Did You Recieve Any Treatments: Yes What Type of Treatment Did You: Surgical Intervention Psychosocial: Yes Anxiety, Depression Integumentary: No Blood Disorders: No Adverse Reaction/Blood Tranf: No (HAS HAD BLOOD WITH NO REACTION) Family Medical History Alzheimer's disease 19 MOTHER (later in life) Dementia 19 MOTHER No Pertinent Family Hx PAST SURGICAL HISTORY: -LEFT EYE REMOVED/ARTIFICIAL EYE DUE TO UVEITIS -RIGHT COCHLEAR IMPLANT -DIALYSIS SHUNT LEFT ARM--DIALYSIS X 4 YEARS -MULTIPLE REVISIONS OF DIALYSIS AV GRAFT -PERITONEAL DIALYSIS SHUNT -BILATERAL NEPHRECTOMY WITH RENAL TRANSPLANT-IN RLQ OF ABDOMEN--6 YEARS AGO--FOR POLYCYSTIC KIDNEY DISEASE -CARDIAC ABLATION -AORTIC VALVE REPLACEMENT WITH PIG VALVE FOR AORTIC STENOSIS -TONSILLECTOMY -APPENDECTOMY -HYSTERECTOMY/ LATER BSO -CARDIAC CATH 2010--NON-OBSTRUCTIVE DISEASE, NO INTERVENTION -BILATERAL PULMONARY VEIN ABLATION WITH STAPLE AMPTUATION OF LEFT ATRIAL APPENDAGE AT SAME TIME AORTIC VALVE REPLACEMENT -EGD/COLONOSCOPIES/POLYPECTOMIES -EXCISION OF LEFT HIP HEMATOMA 01/2017 [facility] [place]. Physical Exam Vital Signs Vital Signs - First Documented 12/21/22 19:50 Temp 36.4 Pulse 72 Resp 16 B/P (MAP) 194/102 (132) Pulse Ox 96 O2 Delivery Room Air Capillary Refill : Less Than 3 Seconds Height, Weight, BMI Height: 5'1.00" Weight: 127lbs. 1.0oz. 57.098808ki; 29.00 BMI Method:Stated General Appearance: WD/WN, Moderate Distress HEENT: Other (Oropharynx somewhat dry. Left artificial eye. Right eye appears normal with normal pupillary response to light) Neck: Normal Inspection; No JVD Respiratory: No Accessory Muscle Use, No Respiratory Distress, Crackles (Throughout bilaterally), Other (Respirations seem somewhat shallow and labored) Cardiovascular: Regular Rate, Rhythm, No Edema, No Murmur Gastrointestinal: Soft; No Distended; Tenderness (Right lower quadrant) Extremity: Normal Inspection, Non Tender, No Pedal Edema Neurologic/Psychiatric: Alert, Oriented x3, No Motor/Sensory Deficits, deck officer II- XII Norm as Tested (Artificial left eye) Skin: Normal Color, Warm/Dry Progress/Results/Core Measures Suspected Sepsis SIRS Temperature: Pulse: 72 Respiratory Rate: 16 Laboratory Tests 12/21/22 19:55: White Blood Count 8.9 Blood Pressure 194 /102 Mean: 132 Laboratory Tests 12/21/22 19:55: Creatinine 0.86, Platelet Count 194, Total Bilirubin 0.6 Results/Orders Lab Results Laboratory Tests Test 12/21/22 19:55 12/21/22 22:10 Range/Units White Blood Count 8.9 4.3-11.0 10^3/uL Red Blood Count 4.55 3.80-5.11 10^6/uL Hemoglobin 13.5 11.5-16.0 g/dL Hematocrit 38 35-52 % Mean Corpuscular Volume 84 80-99 fL Mean Corpuscular Hemoglobin 30 25-34 pg Mean Corpuscular Hemoglobin Concent 35 32-36 g/dL Red Cell Distribution Width 13.2 10.0-14.5 % Platelet Count 194 130-400 10^3/uL Mean Platelet Volume 10.7 9.0-12.2 fL Immature Granulocyte % (Auto) 0 % Neutrophils (%) (Auto) 69 42-75 % Lymphocytes (%) (Auto) 23 12-44 % Monocytes (%) (Auto) 6 0-12 % Eosinophils (%) (Auto) 1 0-10 % Basophils (%) (Auto) 0 0-10 % Neutrophils # (Auto) 6.1 1.8-7.8 10^3/uL Lymphocytes # (Auto) 2.1 1.0-4.0 10^3/uL Monocytes # (Auto) 0.6 0.0-1.0 10^3/uL Eosinophils # (Auto) 0.1 0.0-0.3 10^3/uL Basophils # (Auto) 0.0 0.0-0.1 10^3/uL Immature Granulocyte # (Auto) 0.0 0.0-0.1 10^3/uL Sodium Level 138 135-145 MMOL/L Potassium Level 3.7 3.6-5.0 MMOL/L Chloride Level 106 98-107 MMOL/L Carbon Dioxide Level 17 L 21-32 MMOL/L Anion Gap 15 H 5-14 MMOL/L Blood Urea Nitrogen 8 7-18 MG/DL Creatinine 0.86 0.60-1.30 MG/DL Estimat Glomerular Filtration Rate 72 BUN/Creatinine Ratio 9 Glucose Level 119 H 70-105 MG/DL Calcium Level 9.3 8.5-10.1 MG/DL Corrected Calcium 9.2 8.5-10.1 MG/DL Magnesium Level 1.6 1.6-2.4 MG/DL Total Bilirubin 0.6 0.1-1.0 MG/DL Aspartate Amino Transf (AST/SGOT) 24 5-34 U/L Alanine Aminotransferase (ALT/SGPT) 18 0-55 U/L Alkaline Phosphatase 92 40-136 U/L C-Reactive Protein High Sensitivity 2.34 H 0.00-0.50 MG/DL B-Type Natriuretic Peptide 104.7 H <100.0 PG/ML Total Protein 7.2 6.4-8.2 GM/DL Albumin 4.1 3.2-4.5 GM/DL Urine Color YELLOW Urine Clarity SL CLOUDY Urine pH 6.0 5-9 Urine Specific Holcomb <=1.005 1.016-1.022 Urine Protein NEGATIVE NEGATIVE Urine Glucose (UA) NEGATIVE NEGATIVE Urine Ketones NEGATIVE NEGATIVE Urine Nitrite POSITIVE H NEGATIVE Urine Bilirubin NEGATIVE NEGATIVE Urine Urobilinogen 0.2 < = 1.0 MG/DL Urine Leukocyte Esterase 1+ H NEGATIVE Urine RBC (Auto) NEGATIVE NEGATIVE Urine RBC NONE /HPF Urine WBC 2-5 /HPF Urine Squamous Epithelial Cells 2-5 /HPF Urine Crystals PRESENT H /LPF Urine Amorphous Sediment MOD KATERYNA URATES H /LPF Urine Bacteria LARGE H /HPF Urine Casts NONE /LPF Urine Mucus NEGATIVE /LPF Urine Culture Indicated YES My Orders Orders - CIERA LOPEZ MD Cbc With Automated Diff (12/21/22 20:13) Comprehensive Metabolic Panel (12/21/22 20:13) Hs C Reactive Protein (12/21/22 20:13) Magnesium (12/21/22 20:13) Ua Culture If Indicated (12/21/22 20:13) Ed Iv/Invasive Line Start (12/21/22 20:13) Ekg Tracing (12/21/22 20:13) Monitor-Rhythm Ecg Trace Only (12/21/22 20:13) Fentanyl Inj (Sublimaze Injection) (12/21/22 20:15) Lorazepam Injection (Ativan Injection) (12/21/22 20:15) Bnp Alvarez (12/21/22 20:33) Chest 1 View, Ap/Pa Only (12/21/22 20:33) Ct Head Wo-R/O Stroke (12/21/22 20:54) Urine Culture (12/21/22 22:10) Nitrofurantoin Capsule,Macro (Macrobid C (12/21/22 22:45) Medications Given in ED Current Medications Medications Dose Ordered Sig/Lizzie Route Start Time Stop Time Status Last Admin Dose Admin Fentanyl Citrate 25 mcg ONCE ONCE IVP 12/21/22 20:15 12/21/22 20:16 DC 12/21/22 20:25 25 MCG Lorazepam 0.5 mg ONCE ONCE IVP 12/21/22 20:15 12/21/22 20:16 DC 12/21/22 20:26 0.5 MG Vital Signs/I&O 12/21/22 19:50 Temp 36.4 Pulse 72 Resp 16 B/P (MAP) 194/102 (132) Pulse Ox 96 O2 Delivery Room Air Capillary Refill : Less Than 3 Seconds Blood Pressure Mean: 132 Progress Note #1: Time: 20:37 Progress Note Patient was interviewed and examined shortly after arrival. Report was received from EMS. Medications have been reviewed. Labs are pending at this time. EKG was unremarkable. She is being treated with fentanyl 25 mcg for her abdominal pain and Ativan 0.5 mg for her dizziness. She normally takes clonazepam at home. Nausea resolved with the Phenergan administered by EMS. Chest x-ray was ordered for evaluation of the pulmonary crackles on exam and her hypertension and is pending at this time. Progress Note #2: Time: 22:43 Progress Note Labs were reviewed in their entirety and interpreted by me. CBC was normal and unremarkable. CMP demonstrated a low CO2 without any other significant abnormalities. 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 Magnesium was normal. Patient reported complete resolution of her nausea, dizziness, and right lower quadrant pain after treatment with Ativan and fentanyl. Patient desired discharge home. Urinalysis was reviewed and there was moderate bacteria, 2-5 WBC, and 1+ leukocyte esterase. This was loosely suggestive of UTI. We discussed treating for possible UTI versus waiting for cultures. was concerned that these symptoms today are similar to symptoms she has exhibited in the past with UTI. They therefore requested treatment. A dose of Macrobid was given in the ER to be followed by a prescription. Zofran was also prescribed. Prior urine culture from October was reviewed and sensitivity to Macrobid was noted. GFR was within appropriate range for Macrobid as well. Patient's hypertension resolved with dramatic improvement of blood pressure without any specific treatment prior to discharge. See discharge instructions for further discussion. ECG Initial ECG Impression Date: Dec 21, 2022 Initial ECG Impression Time: 20:20 Initial ECG Rate: 69 Initial ECG Rhythm: Normal Sinus Comment Sinus rhythm with variable rate. No ST elevation or depression. No abnormal intervals or axis deviation. Diagnostic Imaging Diagonstic Imaging: CT Plain Films/CT/US/NM/MRI: head Comments NAME: GISELA TURCIOS [facility] REC#: [id number] PT STATUS: REG ER : 1950 PHYSICIAN: CIERA LOPEZ MD ADMIT DATE: 12/21/22/ER Signed Date of Exam:12/21/22 CT HEAD WO-R/O STROKE PROCEDURE: CT head w/o r/o stroke. TECHNIQUE: Multiple contiguous axial images were obtained through the brain without the use of intravenous contrast. Auto Exposure Controls were utilized during the CT exam to meet ALARA standards for radiation dose reduction. INDICATION: Acute neurologic deficit. FINDINGS: The patient has a right cochlear implant. Patient has a left ocular prosthesis. The ventricles are normal in size, shape and position. There is no mass or hemorrhage. There is no extra-axial fluid collection. IMPRESSION: No acute abnormality is seen in the head. Dictated by: Dictated on workstation # [id number] Dict: 12/21/222114 Trans: 12/21/222133 [facility] [id number] Interpreted by: ROYCE DAVIS MD Electronically signed by: ROYCE DAVIS MD 12/21/222133 Diagonstic Imaging: Xray Plain Films/CT/US/NM/MRI: chest Comments NAME: GISELA TURCIOS [facility] REC#: [id number] PT STATUS: REG ER : 1950 PHYSICIAN: CIERA LOPEZ MD ADMIT DATE: 12/21/22/ER Signed Date of Exam:12/21/22 CHEST 1 VIEW, AP/PA ONLY INDICATION: Shortness of breath. EXAMINATION: Portable chest at 8:36 PM. FINDINGS: There is some atelectasis at the left lung base. There are postop changes from valve repair surgery. IMPRESSION: Minimal left basilar atelectasis. Dictated by: Dictated on workstation # [id number] Dict: 12/21/222101 Trans: 12/21/222115 [facility] [id number] Interpreted by: ROYCE DAVIS MD Electronically signed by: ROYCE DAVIS MD 12/21/222115 Departure Impression Primary Impression: Nausea and vomiting Qualified Codes: R11.2 - Nausea with vomiting, unspecified Additional Impressions: Urinary tract infection Qualified Codes: N39.0 - Urinary tract infection, site not specified Vertigo Right lower quadrant pain Episode of hypertension Disposition: HOME, SELF-CARE Condition: Improved Departure-Patient Inst. Decision time for Depature: 22:40 Referrals: MALDONADO GARRETT DO (PCP/Family) Primary Care Physician Patient Instructions: Abdominal pain, Nausea and Vomiting, Adult ED, Urinary Tract Infection, Adult ED Add. Discharge Instructions: Drink plenty of clear liquids to stay well-hydrated. Start your antibiotic (Macrobid) tomorrow morning. Contact your primary care provider on Sunday to review urine culture results. Also schedule a follow-up appointment with your primary care provider as soon as possible. Continue your medications as previously directed. Return to the emergency room if you have worsening symptoms despite following these instructions. All discharge instructions reviewed with patient and/or family. Voiced understanding. Scripts Ondansetron (Ondansetron Odt) 4 Mg Tab.rapdis 4 MG SL Q4H PRN for NAUSEA/VOMITING, #10 TAB Prov: CIERA LOPEZ MD 12/21/22 Nitrofurantoin Monohyd/M-Cryst (Macrobid 100 mg Capsule) 100 Mg Capsule 1 TAB PO BID, #6 CAP Prov: CIERA LOPEZ MD 12/21/22 Copy Copies To 1: MALDONADO GARRETT JOSHUA T MD Dec 21, 2022 20:32
[2022-12-21 20:42] LABS: BASOPHILS % (AUTO) 0 % (0-10); EOSINOPHILS # (AUTO) 0.1 10^3/uL (0.0-0.3); EOSINOPHILS % (AUTO) 1 % (0-10); HEMATOCRIT 38 % (35-52); HEMOGLOBIN 13.5 g/dL (11.5-16.0); LYMPHOCYTES # (AUTO) 2.1 10^3/uL (1.0-4.0); LYMPHOCYTES % (AUTO) 23 % (12-44); MEAN CORPUSCULAR HEMOGLOBIN 30 pg (25-34); MEAN CORPUSCULAR HGB CONC 35 g/dL (32-36); MEAN CORPUSCULAR VOLUME 84 fL (80-99); MEAN PLATELET VOLUME 10.7 fL (9.0-12.2); MONOCYTES # (AUTO) 0.6 10^3/uL (0.0-1.0); MONOCYTES % (AUTO) 6 % (0-12); NEUTROPHILS # (AUTO) 6.1 10^3/uL (1.8-7.8); NEUTROPHILS % (AUTO) 69 % (42-75); PLATELET COUNT 194 10^3/uL (130-400); WHITE BLOOD COUNT 8.9 10^3/uL (4.3-11.0)
[2022-12-21 20:55] LABS: ALBUMIN 4.1 GM/DL (3.2-4.5); BILIRUBIN,TOTAL 0.6 MG/DL (0.1-1.0); CALCIUM 9.3 MG/DL (8.5-10.1); CREATININE SERUM 0.86 MG/DL (0.60-1.30); MAGNESIUM 1.6 MG/DL (1.6-2.4); POTASSIUM 3.7 MMOL/L (3.6-5.0); TOTAL PROTEIN 7.2 GM/DL (6.4-8.2)
--- NOTE | 2022-12-21 21:13 | Diagnostic Imaging Report ---
INDICATION: Shortness of breath. EXAMINATION: Portable chest at 8:36 PM. FINDINGS: There is some atelectasis at the left lung base. There are postop changes from valve repair surgery. IMPRESSION: Minimal left basilar atelectasis. Dictated by: Dictated on workstation # [id number]
--- NOTE | 2022-12-21 21:30 | Diagnostic Imaging Report ---
PROCEDURE: CT head w/o r/o stroke. TECHNIQUE: Multiple contiguous axial images were obtained through the brain without the use of intravenous contrast. Auto Exposure Controls were utilized during the CT exam to meet ALARA standards for radiation dose reduction. INDICATION: Acute neurologic deficit. FINDINGS: The patient has a right cochlear implant. Patient has a left ocular prosthesis. The ventricles are normal in size, shape and position. There is no mass or hemorrhage. There is no extra-axial fluid collection. IMPRESSION: No acute abnormality is seen in the head. Dictated by: Dictated on workstation # [id number]
[2022-12-21 22:15] LABS: BILIRUBIN,URINE NEGATIVE (NEGATIVE); CLARITY,URINE SL CLOUDY; COLOR,URINE YELLOW; GLUCOSE, URINE (UA) NEGATIVE (NEGATIVE); KETONES,URINE NEGATIVE (NEGATIVE); LEUKOCYTE ESTERASE ,URINE 1+ (NEGATIVE); NITRITE,URINE POSITIVE (NEGATIVE); PROTEIN,URINE NEGATIVE (NEGATIVE)
[2022-12-21 22:25] LABS: AMORPHOUS SEDIMENT,UR MOD AMOR URATES /LPF; BACTERIA,URINE LARGE /HPF
[2022-12-21] MEDS ORDERED: NITR-65 PO (22:41)
[2022-12-21] MEDS ORDERED: ONDA4TAB11 SL (22:41)
[2022-12-21] MEDS ORDERED: NITROFURANTOIN 100 MG (MACROBID) CAPSULE PO ONE (22:45)
[2022-12-21 23:04] VITALS: BP 145/68
== END 2022-12-21 23:04 | disposition home or self-care (01) ==
LOC: EDUNIT# 19:47 → ER 19:48
DX: R11.2 Nausea with vomiting, unspecified (principal); R42 Dizziness and giddiness; N39.0 Urinary tract infection, site not specified; I10 Essential (primary) hypertension; Z79.899 Other long term (current) drug therapy; Z94.0 Kidney transplant status; Z79.620 Long term (current) use of immunosuppressive biologic; Z90.49 Acquired absence of other specified parts of digestive tract
CPT/HCPCS: 36415; 70450; 71045; 80053; 81000; 83735; 83880; 85025; 86141; 87077; 87088; 87186; 93005

== ENCOUNTER 2023-02-06 03:06 | Emergency (ER) | payer MEDICARE ==
[~2023-02-06] VITALS: Ht 154.9 cm; Wt 65.7 kg
[~2023-02-06 03:06] MED LIST changes: +ONDA4TAB11 SL
[2023-02-06 03:28] LABS: BASOPHILS % (AUTO) 1 % (0-10); EOSINOPHILS % (AUTO) 0 % (0-10); HEMATOCRIT 35 % (35-52); HEMOGLOBIN 12.5 g/dL (11.5-16.0); LYMPHOCYTES # (AUTO) 1.1 10^3/uL (1.0-4.0); LYMPHOCYTES % (AUTO) 14 % (12-44); MEAN CORPUSCULAR HEMOGLOBIN 30 pg (25-34); MEAN CORPUSCULAR HGB CONC 36 g/dL (32-36); MEAN CORPUSCULAR VOLUME 83 fL (80-99); MEAN PLATELET VOLUME 9.8 fL (9.0-12.2); MONOCYTES # (AUTO) 0.5 10^3/uL (0.0-1.0); MONOCYTES % (AUTO) 6 % (0-12); NEUTROPHILS % (AUTO) 79 % (42-75); PLATELET COUNT 165 10^3/uL (130-400); WHITE BLOOD COUNT 7.7 10^3/uL (4.3-11.0)
[2023-02-06] MEDS ORDERED: ONDANSETRON INJECTION 4 MG/2 ML (SDV) IVP ONE (03:30)
[2023-02-06 03:33] LABS: ALBUMIN 3.7 GM/DL (3.2-4.5); CHLORIDE 110 MMOL/L (98-107); POTASSIUM 3.5 MMOL/L (3.6-5.0); SODIUM 141 MMOL/L (135-145)
[2023-02-06 03:34] LABS: CALCIUM 8.3 MG/DL (8.5-10.1)
[2023-02-06 03:35] LABS: GLUCOSE 149 MG/DL (70-105); TOTAL PROTEIN 6.2 GM/DL (6.4-8.2)
[2023-02-06 03:36] LABS: CARBON DIOXIDE 20 MMOL/L (21-32)
[2023-02-06 03:37] LABS: BILIRUBIN,TOTAL 0.8 MG/DL (0.1-1.0)
[2023-02-06 03:39] LABS: ALKALINE PHOSPHATASE 66 U/L (40-136); CREATININE SERUM 0.77 MG/DL (0.60-1.30); GFR ESTIMATED 82
[2023-02-06 03:40] LABS: BUN/CREATININE RATIO 9
[2023-02-06 03:41] LABS: MAGNESIUM 1.4 MG/DL (1.6-2.4)
[2023-02-06 03:42] LABS: ALANINE AMINOTRANSFERASE 16 U/L (0-55); LIPASE < 4 U/L (8-78)
--- NOTE | 2023-02-06 04:43 | ED General ---
General Chief Complaint: Abdominal/GI Problems Stated Complaint: NAUSEA,VOMITING Nursing Triage Note: PATIENT STATES THAT SHE WOKE UP WITH N/V AND VOMITED APPROX 200ML PRIOR TO EMS ARRIVAL. SHE ALSO C/O DIZZINESS. DENIES PAIN AT THIS TIME. Source of Information: Patient, EMS Exam Limitations: No Limitations History of Present Illness Date Seen by Provider: Feb 06, 2023 Time Seen by Provider: 03:07 Allergies and Home Medications Allergies Coded Allergies: codeine (Unverified Allergy, Unknown, 02/12/17) morphine (Verified Allergy, Unknown, NAUSEA, 02/12/17) Patient Home Medication List Alprazolam (Alprazolam) 0.5 Mg Tablet, 0.5 MG PO Q4HR PRN for ANXIETY Prescribed by: JOSEPH DRIVER on 11/02/22 1114 Ascorbate Calcium (Vitamin C) 500 Mg Tablet, 500 MG PO DAILY, (Reported) Entered as Reported by: ANUSHKA LUNA on 08/29/16 0947 Aspirin (Adult Low Dose Aspirin EC) 81 Mg Tablet.dr, 81 MG PO DAILY, (Reported) Entered as Reported by: SANTIAGO VILLARREAL on 08/28/16 1842 Brinzolamide (Azopt) 10 Ml Btl, 1 DROP OD DAILY, (Reported) Entered as Reported by: ANUSHKA LUNA on 08/29/16 0947 Bupropion HCl (Bupropion HCl) 100 Mg Tablet, 100 MG PO DAILY, (Reported) Entered as Reported by: MALDONADO LAN on 11/01/22 1019 Cholecalciferol (Vitamin D3) (Vitamin D3) 125 Mcg Capsule, 125 MCG PO DAILY, (Reported) Entered as Reported by: SERG FRIED on 09/26/21 1103 Clonazepam (Clonazepam) 0.5 Mg Tablet, 0.5 MG PO HS, (Reported) Entered as Reported by: SERG FRIED on 09/26/21 1059 Cranberry Fruit (Cranberry) 450 Mg Tablet, 450 MG PO BID, (Reported) Entered as Reported by: MALDONADO LAN on 09/02/20 1517 Cyclosporine (Restasis) 1 Each Droperette, 1 EACH OD BID, (Reported) Entered as Reported by: MALDONADO LAN on 03/23/20 1521 Dicyclomine HCl (Dicyclomine HCl) 20 Mg Tablet, 10 MG PO BID, (Reported) Entered as Reported by: MALDONADO LAN on 03/23/20 1518 Fluticasone Propionate (Flonase Allergy Relief) 9.9 Ml [place]at[place].susp, 2 SPRAY NS DAILY PRN for CONGESTION, (Reported) Entered as Reported by: MALDONADO LAN on 03/23/20 1518 Gabapentin (Gabapentin) 600 Mg Tablet, 600 MG PO TID, (Reported) Entered as Reported by: MALDONADO LAN on 03/23/20 1518 Hydroxyzine Pamoate (Hydroxyzine Pamoate) 50 Mg Capsule, 50 MG PO HS, (Reported) Entered as Reported by: MALDONADO LAN on 11/01/22 1019 L.acidoph & Paracasei,B.lactis (Probiotic) 1 Each Capsule, 1 CAP PO DAILY, (Reported) Entered as Reported by: HUSSEIN LOPEZ on 04/02/15 0327 Loperamide HCl (Imodium A-D) 2 Mg Capsule, 2-4 MG PO UD PRN for DIARRHEA, (Reported) Entered as Reported by: MALDONADO LAN on 11/01/22 1019 Methenamine Hippurate (Methenamine Hippurate) 1 Gram Tablet, 1 GM PO DAILY, (Reported) Entered as Reported by: MALDONADO LAN on 11/01/22 1019 Mirtazapine (Mirtazapine) 45 Mg Tablet, 45 MG PO HS, (Reported) Entered as Reported by: MALDONADO LAN on 11/01/22 1019 Mycophenolate Sodium (Mycophenolic Acid) 180 Mg Tablet.dr, 180 MG PO BID, (Reported) Entered as Reported by: SERG FRIED on 09/26/21 1048 Nitrofurantoin Monohyd/M-Cryst (Macrobid 100 mg Capsule) 100 Mg Capsule, 1 TAB PO BID Prescribed by: CIERA MATTHEWS on 12/21/22 224 Ondansetron (Ondansetron Odt) 4 Mg Tab.rapdis, 4 MG SL Q4H PRN for NAUSEA/ VOMITING Prescribed by: CIERA MATTHEWS on 12/21/22 224 Pitavastatin Calcium (Livalo) 2 Mg Tablet, 2 MG PO DAILY, (Reported) Entered as Reported by: SERG FRIED on 09/26/21 1052 Tacrolimus (Tacrolimus) 1 Mg Capsule, 1 MG PO BID, (Reported) Entered as Reported by: MALDONADO LAN on 11/01/22 1019 Vancomycin HCl (Vancomycin HCl) 125 Mg Capsule, 125 MG PO QID Prescribed by: JOSEPH DRIVER on 11/02/22 1113 [[place]] , 1 PACKET PO Q72H, (Reported) Entered as Reported by: MALDONADO LAN on 11/01/22 1019 Past Ccotdrw-Mxvgts-Fhlfes Hx Immunizations Up To Date Tetanus Booster (TDap): Unknown PED Vaccines UTD: No First/Initial COVID19 Vaccinat: 08/08 Second COVID19 Vaccination Lg: 09/05 Third COVID19 Vaccination Date: 03/08 Seasonal Allergies Seasonal Allergies: Yes Past Medical History Surgery/Hospitalization HX: Atificial heart valve,Kidney disease, ND, Afib, HTN, frequent UTI fistula on right arm, Kidney Transplant Surgeries: Yes (COCHLEAR IMPLANT, CARDIAC ABLATION, AORTIC VALVE, KIDNEY TRANSPLANT) Appendectomy, Cardiac, Dialysis, Ear Surgery, Eye Surgery, Hysterectomy, Kidney Transplant, Nephrectomy, Oophorectomy, Orthopedic, Renal, Tonsillectomy, Valve Replacement, Vascular Surgery Respiratory: Yes Pneumonia Currently Using CPAP: No Currently Using BIPAP: No Cardiac: Yes ( CHF; AORTIC PIG VALVE FOR AORTIC STENOSIS ; PAROXYSMAL ATRIAL FIB. 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, Menopausal Sexually Transmitted Disease: No HIV/AIDS: No Genitourinary: Yes (BILATERAL NEPHRECTOMY AND RENAL TRANSPLANT, dialysis prior to transplant) Kidney Infection, Bladder Infection, Renal Failure, UTI-Chronic Gastrointestinal: Yes (H.PYLORI; GASTROPARESIS) Colitis, Gastroesophageal Reflux, Chronic Diarrhea, Polyps, C-Diff, Irritable Bowel Musculoskeletal: Yes (FREQUENT FALLS/USES WALKER;CHRONIC GENERALIZED WEAKNESS) Degenerate Disk Disease, Arthritis, Chronic Back Pain Endocrine: Yes Parathyroid Disease, Diabetes, Non-Insulin dep HEENT: Yes (LEFT EYE REMOVED DUE TO UVEITIS; RIGHT COCHLEAR IMPLANT) Cataract, Glaucoma Loss of Vision: Left Hearing Impairment: Hard of Hearing, Hearing Aide Left Cancer: Yes Kidney Did You Recieve Any Treatments: Yes What Type of Treatment Did You: Surgical Intervention Psychosocial: Yes Anxiety, Depression Integumentary: No Blood Disorders: No Adverse Reaction/Blood Tranf: No (HAS HAD BLOOD WITH NO REACTION) Family Medical History Alzheimer's disease 19 MOTHER (later in life) Dementia 19 MOTHER No Pertinent Family Hx PAST SURGICAL HISTORY: -LEFT EYE REMOVED/ARTIFICIAL EYE DUE TO UVEITIS -RIGHT COCHLEAR IMPLANT -DIALYSIS SHUNT LEFT ARM--DIALYSIS X 4 YEARS -MULTIPLE REVISIONS OF DIALYSIS AV GRAFT -PERITONEAL DIALYSIS SHUNT -BILATERAL NEPHRECTOMY WITH RENAL TRANSPLANT-IN RLQ OF ABDOMEN--6 YEARS AGO--FOR POLYCYSTIC KIDNEY DISEASE -CARDIAC ABLATION -AORTIC VALVE REPLACEMENT WITH PIG VALVE FOR AORTIC STENOSIS -TONSILLECTOMY -APPENDECTOMY -HYSTERECTOMY/ LATER BSO -CARDIAC CATH 2010--NON-OBSTRUCTIVE DISEASE, NO INTERVENTION -BILATERAL PULMONARY VEIN ABLATION WITH STAPLE AMPTUATION OF LEFT ATRIAL APPENDAGE AT SAME TIME AORTIC VALVE REPLACEMENT -EGD/COLONOSCOPIES/POLYPECTOMIES -EXCISION OF LEFT HIP HEMATOMA 01/2017 [facility] [place]. Physical Exam Vital Signs Vital Signs - First Documented 02/06/23 03:08 Temp 36.6 Pulse 68 Resp 18 B/P (MAP) 177/82 (113) Pulse Ox 96 O2 Delivery Nasal Cannula O2 Flow Rate 2.00 Capillary Refill : Less Than 3 Seconds Height, Weight, BMI Height: 5'1.00" Weight: 127lbs. 1.0oz. 57.487484yp; 27.00 BMI Method:Stated Progress/Results/Core Measures Suspected Sepsis SIRS Temperature: Pulse: 68 Respiratory Rate: 18 Laboratory Tests 02/06/23 03:13: White Blood Count 7.7 Blood Pressure 177 /82 Mean: 113 Laboratory Tests 02/06/23 03:13: Creatinine 0.77, Platelet Count 165, Total Bilirubin 0.8 Results/Orders Lab Results Laboratory Tests Test 02/06/23 03:13 02/06/23 04:51 Range/Units White Blood Count 7.7 4.3-11.0 10^3/uL Red Blood Count 4.22 3.80-5.11 10^6/uL Hemoglobin 12.5 11.5-16.0 g/dL Hematocrit 35 35-52 % Mean Corpuscular Volume 83 80-99 fL Mean Corpuscular Hemoglobin 30 25-34 pg Mean Corpuscular Hemoglobin Concent 36 32-36 g/dL Red Cell Distribution Width 13.3 10.0-14.5 % Platelet Count 165 130-400 10^3/uL Mean Platelet Volume 9.8 9.0-12.2 fL Immature Granulocyte % (Auto) 0 % Neutrophils (%) (Auto) 79 H 42-75 % Lymphocytes (%) (Auto) 14 12-44 % Monocytes (%) (Auto) 6 0-12 % Eosinophils (%) (Auto) 0 0-10 % Basophils (%) (Auto) 1 0-10 % Neutrophils # (Auto) 6.0 1.8-7.8 10^3/uL Lymphocytes # (Auto) 1.1 1.0-4.0 10^3/uL Monocytes # (Auto) 0.5 0.0-1.0 10^3/uL Eosinophils # (Auto) 0.0 0.0-0.3 10^3/uL Basophils # (Auto) 0.0 0.0-0.1 10^3/uL Immature Granulocyte # (Auto) 0.0 0.0-0.1 10^3/uL Sodium Level 141 135-145 MMOL/L Potassium Level 3.5 L 3.6-5.0 MMOL/L Chloride Level 110 H 98-107 MMOL/L Carbon Dioxide Level 20 L 21-32 MMOL/L Anion Gap 11 5-14 MMOL/L Blood Urea Nitrogen 7 7-18 MG/DL Creatinine 0.77 0.60-1.30 MG/DL Estimat Glomerular Filtration Rate 82 BUN/Creatinine Ratio 9 Glucose Level 149 H 70-105 MG/DL Calcium Level 8.3 L 8.5-10.1 MG/DL Corrected Calcium 8.5 8.5-10.1 MG/DL Magnesium Level 1.4 L 1.6-2.4 MG/DL Total Bilirubin 0.8 0.1-1.0 MG/DL Aspartate Amino Transf (AST/SGOT) 18 5-34 U/L Alanine Aminotransferase (ALT/SGPT) 16 0-55 U/L Alkaline Phosphatase 66 40-136 U/L C-Reactive Protein High Sensitivity 1.14 H 0.00-0.50 MG/DL Total Protein 6.2 L 6.4-8.2 GM/DL Albumin 3.7 3.2-4.5 GM/DL Lipase < 4 L 8-78 U/L Influenza Type A (RT-PCR) Not Detected Not Detecte Influenza Type B (RT-PCR) Not Detected Not Detecte SARS-CoV-2 RNA (RT-PCR) Not Detected Not Detecte Urine Color YELLOW Urine Clarity CLEAR Urine pH 7.0 5-9 Urine Specific [place] 1.015 L 1.016-1.022 Urine Protein NEGATIVE NEGATIVE Urine Glucose (UA) NEGATIVE NEGATIVE Urine Ketones NEGATIVE NEGATIVE Urine Nitrite POSITIVE H NEGATIVE Urine Bilirubin NEGATIVE NEGATIVE Urine Urobilinogen .2 < = 1.0 MG/DL Urine Leukocyte Esterase 1+ H NEGATIVE Urine RBC (Auto) NEGATIVE NEGATIVE Urine RBC NONE /HPF Urine WBC 2-5 /HPF Urine Squamous Epithelial Cells RARE /HPF Urine Crystals NONE /LPF Urine Bacteria LARGE H /HPF Urine Casts NONE /LPF Urine Mucus NEGATIVE /LPF Urine Culture Indicated YES My Orders Orders - CIERA LOPEZ MD Cbc With Automated Diff (02/06/23 03:18) Comprehensive Metabolic Panel (02/06/23 03:18) Hs C Reactive Protein (02/06/23 03:18) Lipase (02/06/23 03:18) Magnesium (02/06/23 03:18) Ua Culture If Indicated (02/06/23 03:18) Ed Iv/Invasive Line Start (02/06/23 03:18) Ondansetron Injection (Zofran Injectio (02/06/23 03:30) Covid 19 Inhouse Test (02/06/23 03:46) Influenza A And B By Pcr (02/06/23 03:46) Straight Cath For Spec.-Adult (02/06/23 03:47) Magnesium 1 Gm/100 Ml Ivpb (Magnesium 1 (02/06/23 04:45) Urine Culture (02/06/23 04:51) Ceftriaxone Iv/Im (Ceftriaxone Iv/Im) (02/06/23 05:23) Medications Given in ED Current Medications Medications Dose Ordered Sig/Lizzie Route Start Time Stop Time Status Last Admin Dose Admin Magnesium Sulfate/ Dextrose 100 ml @ 100 mls/hr ONCE ONCE IV 02/06/23 04:45 02/06/23 05:51 DC 02/06/23 04:55 100 MLS/HR Ondansetron HCl 4 mg ONCE ONCE IVP 02/06/23 03:30 02/06/23 03:31 DC 02/06/23 03:25 4 MG Vital Signs/I&O 02/06/23 03:08 Temp 36.6 Pulse 68 Resp 18 B/P (MAP) 177/82 (113) Pulse Ox 96 O2 Delivery Nasal Cannula O2 Flow Rate 2.00 Capillary Refill : Less Than 3 Seconds Blood Pressure Mean: 113 Departure Impression Primary Impression: Nausea and vomiting Qualified Codes: R11.2 - Nausea with vomiting, unspecified Additional Impressions: Urinary tract infection Qualified Codes: N39.0 - Urinary tract infection, site not specified Hypomagnesemia Disposition: 01 HOME, SELF-CARE Condition: Improved Departure-Patient Inst. Decision time for Depature: 05:57 Referrals: MALDONADO GARRETT DO (PCP/Family) Primary Care Physician Patient Instructions: Urinary Tract Infection, Adult ED Add. Discharge Instructions: Start with a clear liquid diet and gradually advance your diet with small quantities of bland food as tolerated. Start Macrobid later today, and follow-up with your primary care provider after 48 hours to review urine culture. Use Zofran (ondansetron) as prescribed for nausea and vomiting. Return to care if you have worsening symptoms despite following these instructions. All discharge instructions reviewed with patient and/or family. Voiced understanding. Scripts Ondansetron (Ondansetron Odt) 4 Mg Tab.rapdis 4 MG SL Q4H PRN for NAUSEA/VOMITING, #10 TAB Prov: CIERA LOPEZ MD 02/06/23 Nitrofurantoin Monohyd/M-Cryst (Macrobid 100 mg Capsule) 100 Mg Capsule 1 TAB PO BID, #14 CAP Prov: CIERA LOPEZ MD 02/06/23 Copy Copies To 1: MALDONADO GARRETT JOSHUA T MD Feb 06, 2023 04:43
[2023-02-06] MEDS ORDERED: MAGNESIUM 1 GM/100 ML IVPB 100 ML IV ONE (04:45)
[2023-02-06 05:17] LABS: COLOR,URINE YELLOW
[2023-02-06 05:18] LABS: BACTERIA,URINE LARGE /HPF; BILIRUBIN,URINE NEGATIVE (NEGATIVE); CLARITY,URINE CLEAR; GLUCOSE, URINE (UA) NEGATIVE (NEGATIVE); KETONES,URINE NEGATIVE (NEGATIVE); LEUKOCYTE ESTERASE ,URINE 1+ (NEGATIVE); NITRITE,URINE POSITIVE (NEGATIVE); PROTEIN,URINE NEGATIVE (NEGATIVE); SQUAMOUS EPITHELIAL CELL,UR RARE /HPF
[2023-02-06] MEDS ORDERED: cefTRIAXone IV/IM 1,000 MG in NS (IVPB) 50 ML 50 ML IV STA (05:23)
[2023-02-06] MEDS ORDERED: ONDA4TAB11 SL (06:08)
[2023-02-06] MEDS ORDERED: NITR-65 PO (06:08)
[2023-02-06 06:20] VITALS: BP 110/82
== END 2023-02-06 06:30 | disposition home or self-care (01) ==
LOC: EDUNIT# 03:06 → ER 03:07
DX: N39.0 Urinary tract infection, site not specified (principal); E83.42 Hypomagnesemia; Z94.0 Kidney transplant status; Z20.822 Contact with and (suspected) exposure to COVID-19
CPT/HCPCS: 36415; 51701; 80053; 81000; 83690; 83735; 85025; 86141; 87077; 87088; 87186; 87636

== ENCOUNTER 2023-02-10 20:57 | Observation (INO) | payer MEDICARE ==
[~2023-02-10] VITALS: Ht 152.4 cm; Wt 67.9 kg
[2023-02-10 21:13] LABS: BASOPHILS # (AUTO) 0.1 10^3/uL (0.0-0.1); BASOPHILS % (AUTO) 1 % (0-10); EOSINOPHILS # (AUTO) 0.1 10^3/uL (0.0-0.3); EOSINOPHILS % (AUTO) 1 % (0-10); HEMATOCRIT 40 % (35-52); HEMOGLOBIN 13.5 g/dL (11.5-16.0); LYMPHOCYTES # (AUTO) 2.3 10^3/uL (1.0-4.0); LYMPHOCYTES % (AUTO) 29 % (12-44); MEAN CORPUSCULAR HEMOGLOBIN 29 pg (25-34); MEAN CORPUSCULAR HGB CONC 34 g/dL (32-36); MEAN CORPUSCULAR VOLUME 86 fL (80-99); MONOCYTES # (AUTO) 0.5 10^3/uL (0.0-1.0); MONOCYTES % (AUTO) 6 % (0-12); NEUTROPHILS # (AUTO) 4.9 10^3/uL (1.8-7.8); NEUTROPHILS % (AUTO) 62 % (42-75); PLATELET COUNT 191 10^3/uL (130-400); WHITE BLOOD COUNT 7.8 10^3/uL (4.3-11.0)
[2023-02-10] MEDS ORDERED: SCOPOLAMINE 1.5 MG PATCH TD ONE (21:15)
[2023-02-10] MEDS ORDERED: PANTOPRAZOLE INJECTION 40 MG VIAL IV ONE (21:15)
[2023-02-10] MEDS ORDERED: ONDANSETRON INJECTION 4 MG/2 ML (SDV) IVP ONE (21:15)
[2023-02-10] MEDS ORDERED: LACTATED RINGERS 1,000 ML 1,000 ML IV ONE (21:15)
[2023-02-10] MEDS ORDERED: LIDOCAINE UROJET 2% GEL 10 ML PKG TOP ONE (21:15)
--- NOTE | 2023-02-10 21:23 | ED General ---
General Chief Complaint: Dizziness/Syncope Stated Complaint: DIZZINESS Source of Information: Patient (PT NOT WANTING TO TALK ON ARRIVAL. KEEPS EYES CLOSED AND NOT ANSWERING MOST QUESTIONS. ), Old Records History of Present Illness Date Seen by Provider: Feb 10, 2023 Time Seen by Provider: 21:00 Initial Comments PT ARRIVES VIA EMS FROM HOME C/O NAUSEA, NO VOMITING NO DIARRHEA NO ABDOMINAL PAIN NO FEVER NO URINARY SYMPTOMS C/O DIZZINESS PT HAS HAD A MULTITUDE OF VISITS, MANY FOR GI COMPLAINTS. SHE IS CURRENTLY BEING TREATED FOR C. DIFFICILE WITH ORAL VANCOMYCIN--SHE WAS DX IN AUGUST AND CONTINUES TREATMENT PT HAS HAD ONGOING DIARRHEA--4 STOOLS TODAY AND HAS BEEN INCONTINENT OF STOOL ON ARRIVAL NO BLACK/BLOODY/TARRY STOOLS SHE HAS TAKEN ALL MEDS TODAY LAST VISIT HERE 02/06/23 FOR SAME--SEEN IN ER AND DISMISSED PCP: DR. GARRETT AT [facility] Allergies and Home Medications Allergies Coded Allergies: codeine (Unverified Allergy, Unknown, 02/12/17) morphine (Verified Allergy, Unknown, NAUSEA, 02/12/17) fentanyl (Verified Adverse Reaction, Severe, HALLUCINATIONS/VIOLENCE, 02/11/23) Patient Home Medication List Home Medication List Reviewed: Yes Alprazolam (Alprazolam) 0.5 Mg Tablet, 0.5 MG PO Q4HR PRN for ANXIETY Prescribed by: JOSEPH DRIVER on 11/02/22 1114 Ascorbate Calcium (Vitamin C) 500 Mg Tablet, 500 MG PO DAILY, (Reported) Entered as Reported by: ANUSHKA LUNA on 08/29/16946 Last Action: Converted Aspirin (Adult Low Dose Aspirin EC) 81 Mg Tablet.dr, 81 MG PO DAILY, (Reported) Entered as Reported by: SANTIAGO VILLARREAL on 08/28/16 1842 Last Action: Continued Brinzolamide (Azopt) 10 Ml Btl, 1 DROP OD DAILY, (Reported) Entered as Reported by: ANUSHKA LUNA on 08/29/16 0947 Last Action: Converted Bupropion HCl (Bupropion HCl) 100 Mg Tablet, 100 MG PO DAILY, (Reported) Entered as Reported by: MALDONADO LAN on 11/01/22 1019 Last Action: Continued Cholecalciferol (Vitamin D3) (Vitamin D3) 125 Mcg Capsule, 125 MCG PO DAILY, (Reported) Entered as Reported by: SERG FRIED on 09/26/21 1103 Last Action: Converted Clonazepam (Clonazepam) 0.5 Mg Tablet, 0.5 MG PO BID Prescribed by: CLAUDIA MEYER on 02/10/23 2303 Last Action: Continued Cranberry Fruit (Cranberry) 450 Mg Tablet, 450 MG PO BID, (Reported) Entered as Reported by: MALDONADO LAN on 09/02/20 1517 Last Action: Converted Cyclosporine (Restasis) 1 Each Droperette, 1 EACH OD BID, (Reported) Entered as Reported by: MALDONADO LAN on 03/23/20 152 Last Action: Converted Dicyclomine HCl (Dicyclomine HCl) 20 Mg Tablet, 10 MG PO BID, (Reported) Entered as Reported by: MALDONADO LAN on 03/23/20 151 Last Action: Converted Fluticasone Propionate (Flonase Allergy Relief) 9.9 Ml [place].susp, 2 SPRAY NS DAILY PRN for CONGESTION, (Reported) Entered as Reported by: MALDONADO LAN on 03/23/20 151 Last Action: Converted Gabapentin (Gabapentin) 600 Mg Tablet, 600 MG PO TID, (Reported) Entered as Reported by: MALDONADO LAN on 03/23/20 151 Last Action: Continued Hydroxyzine Pamoate (Hydroxyzine Pamoate) 50 Mg Capsule, 50 MG PO HS, (Reported) Entered as Reported by: MALDONADO LAN on 11/01/22 1019 Last Action: Converted L.acidoph & Paracasei,B.lactis (Probiotic) 1 Each Capsule, 1 CAP PO DAILY, (Reported) Entered as Reported by: HUSSEIN LOPEZ on 04/02/15 0327 Last Action: Converted Loperamide HCl (Imodium A-D) 2 Mg Capsule, 2-4 MG PO UD PRN for DIARRHEA, (Reported) Entered as Reported by: MALDONADO LAN on 11/01/22 101 Last Action: Continued Methenamine Hippurate (Methenamine Hippurate) 1 Gram Tablet, 1 GM PO DAILY, (Reported) Entered as Reported by: MALDONADO LAN on 11/01/22 101 Last Action: Continued Mirtazapine (Mirtazapine) 45 Mg Tablet, 45 MG PO HS, (Reported) Entered as Reported by: MALDONADO LAN on 11/01/22 1019 Last Action: Converted Mycophenolate Sodium (Mycophenolic Acid) 180 Mg Tablet.dr, 180 MG PO BID, (Reported) Entered as Reported by: SERG FRIED on 09/26/21 1048 Last Action: Converted Nitrofurantoin Monohyd/M-Cryst (Macrobid 100 mg Capsule) 100 Mg Capsule, 1 TAB PO BID Prescribed by: CIERA MATTHEWS on 12/21/22 224 Nitrofurantoin Monohyd/M-Cryst (Macrobid 100 mg Capsule) 100 Mg Capsule, 1 TAB PO BID Prescribed by: CIERA MATTHEWS on 02/06/23 0608 Last Action: Continued Ondansetron (Ondansetron Odt) 4 Mg Tab.rapdis, 4 MG SL Q4H PRN for NAUSEA/VOMITING Prescribed by: CIERA MATTHEWS on 12/21/22 2241 Ondansetron (Ondansetron Odt) 4 Mg Tab.rapdis, 4 MG SL Q4H PRN for NAUSEA/VOMITING Prescribed by: CIERA MATTHEWS on 02/06/23 0608 Last Action: Continued Pitavastatin Calcium (Livalo) 2 Mg Tablet, 2 MG PO DAILY, (Reported) Entered as Reported by: SERG FRIED on 09/26/21 1052 Last Action: Converted Tacrolimus (Tacrolimus) 1 Mg Capsule, 1 MG PO BID, (Reported) Entered as Reported by: MALDONADO LAN on 11/01/22 1019 Last Action: Continued Vancomycin HCl (Vancomycin HCl) 125 Mg Capsule, 125 MG PO QID Prescribed by: JOSEPH DRIVER on 11/02/22 1113 Last Action: Held [Uqora] , 1 PACKET PO Q72H, (Reported) Entered as Reported by: MALDONADO LAN on 11/01/22 1019 Last Action: Held Review of Systems Review of Systems Constitutional: see HPI, dizziness, malaise, weakness Respiratory: no symptoms reported Cardiovascular: no symptoms reported Gastrointestinal: see HPI; No abdominal pain; diarrhea, loss of appetite, nausea, vomiting Genitourinary: no symptoms reported Musculoskeletal: no symptoms reported Skin: no symptoms reported Psychiatric/Neurological: No Symptoms Reported Hematologic/Lymphatic: No Symptoms Reported Immunological/Allergic: no symptoms reported Past Amrhibf-Vgttdl-Sqjlmb Hx Patient Social History Tobacco Use?: No Substance use?: No Alcohol Use?: No Immunizations Up To Date Tetanus Booster (TDap): Unknown PED Vaccines UTD: No First/Initial COVID19 Vaccinat: 08/08 Second COVID19 Vaccination Lg: 09/05 Third COVID19 Vaccination Date: 03/08 Seasonal Allergies Seasonal Allergies: Yes Past Medical History Surgery/Hospitalization HX: Atificial heart valve,Kidney disease, [place], Afib, HTN, frequent UTI fistula on right arm, Kidney Transplant Surgeries: Yes (COCHLEAR IMPLANT, CARDIAC ABLATION, AORTIC VALVE, KIDNEY TRANSPLANT) Appendectomy, Cardiac, Dialysis, Ear Surgery, Eye Surgery, Hysterectomy, Kidney Transplant, Nephrectomy, Oophorectomy, Orthopedic, Renal, Tonsillectomy, Valve Replacement, Vascular Surgery Respiratory: Yes Pneumonia Currently Using CPAP: No Currently Using BIPAP: No Cardiac: Yes ( CHF; AORTIC PIG VALVE FOR AORTIC STENOSIS ; PAROXYSMAL ATRIAL FIB. 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, Menopausal Sexually Transmitted Disease: No HIV/AIDS: No Genitourinary: Yes (BILATERAL NEPHRECTOMY AND RENAL TRANSPLANT, dialysis prior to transplant) Kidney Infection, Bladder Infection, Renal Failure, UTI-Chronic Gastrointestinal: Yes (H.PYLORI; GASTROPARESIS) Colitis, Gastroesophageal Reflux, Chronic Diarrhea, Polyps, C-Diff, Irritable Bowel Musculoskeletal: Yes (FREQUENT FALLS/USES WALKER;CHRONIC GENERALIZED WEAKNESS) Degenerate Disk Disease, Arthritis, Chronic Back Pain Endocrine: Yes Parathyroid Disease, Diabetes, Non-Insulin dep HEENT: Yes (LEFT EYE REMOVED DUE TO UVEITIS; RIGHT COCHLEAR IMPLANT) Cataract, Glaucoma Loss of Vision: Left Hearing Impairment: Hard of Hearing, Hearing Aide Left Cancer: Yes Kidney Did You Recieve Any Treatments: Yes What Type of Treatment Did You: Surgical Intervention Psychosocial: Yes Anxiety, Depression Integumentary: No Blood Disorders: No Adverse Reaction/Blood Tranf: No (HAS HAD BLOOD WITH NO REACTION) Family Medical History Alzheimer's disease 19 MOTHER (later in life) Dementia 19 MOTHER No Pertinent Family Hx PAST SURGICAL HISTORY: -LEFT EYE REMOVED/ARTIFICIAL EYE DUE TO UVEITIS -RIGHT COCHLEAR IMPLANT -DIALYSIS SHUNT LEFT ARM--DIALYSIS X 4 YEARS -MULTIPLE REVISIONS OF DIALYSIS AV GRAFT -PERITONEAL DIALYSIS SHUNT -BILATERAL NEPHRECTOMY WITH RENAL TRANSPLANT-IN RLQ OF ABDOMEN--6 YEARS AGO--FOR POLYCYSTIC KIDNEY DISEASE -CARDIAC ABLATION -AORTIC VALVE REPLACEMENT WITH PIG VALVE FOR AORTIC STENOSIS -TONSILLECTOMY -APPENDECTOMY -HYSTERECTOMY/ LATER BSO -CARDIAC CATH 2010--NON-OBSTRUCTIVE DISEASE, NO INTERVENTION -BILATERAL PULMONARY VEIN ABLATION WITH STAPLE AMPTUATION OF LEFT ATRIAL APPENDAGE AT SAME TIME AORTIC VALVE REPLACEMENT -EGD/COLONOSCOPIES/POLYPECTOMIES -EXCISION OF LEFT HIP HEMATOMA 01/2017 [facility] [place] [facility]. Physical Exam Vital Signs Vital Signs - First Documented 02/10/23 20:57 Temp 36.3 Pulse 75 Resp 18 B/P (MAP) 178/88 (118) O2 Delivery Room Air Capillary Refill : Height, Weight, BMI Height: 5'1.00" Weight: 127lbs. 1.0oz. 57.410060sr; 27.00 BMI Method:Stated General Appearance: No Apparent Distress, WD/WN, Other (LETHARGIC, KEEPS EYES CLOSED, NOT WANTING TO TALK) HEENT: Moist Mucous Membranes, Other (ARTIFICIAL RIGHT EYE; ORAL MUCOSA SLIGHTLY DRY) Neck: Normal Inspection Respiratory: Normal Breath Sounds, No Accessory Muscle Use, No Respiratory Distress Cardiovascular: Regular Rate, Rhythm, No Murmur Gastrointestinal: Non Tender, Soft, Abnormal Bowel Sounds (HYPERACTIVE), Other (INCONTINENT OF STOOL ON ARRIVAL) Back: No CVA Tenderness Extremity: Normal Inspection, No Pedal Edema Neurologic/Psychiatric: Alert, Oriented x3, No Motor/Sensory Deficits, proposition player II- XII Norm as Tested Skin: Normal Color, Warm/Dry Progress/Results/Core Measures Suspected Sepsis SIRS Temperature: Pulse: Respiratory Rate: Laboratory Tests 02/10/23 21:05: White Blood Count 7.8 Blood Pressure / Mean: Laboratory Tests 02/10/23 21:05: Creatinine 0.85, Platelet Count 191, Total Bilirubin 0.7 Results/Orders Lab Results Laboratory Tests Test 02/10/23 21:05 02/10/23 22:05 Range/Units White Blood Count 7.8 4.3-11.0 10^3/uL Red Blood Count 4.59 3.80-5.11 10^6/uL Hemoglobin 13.5 11.5-16.0 g/dL Hematocrit 40 35-52 % Mean Corpuscular Volume 86 80-99 fL Mean Corpuscular Hemoglobin 29 25-34 pg Mean Corpuscular Hemoglobin Concent 34 32-36 g/dL Red Cell Distribution Width 13.7 10.0-14.5 % Platelet Count 191 130-400 10^3/uL Mean Platelet Volume 10.0 9.0-12.2 fL Immature Granulocyte % (Auto) 0 % Neutrophils (%) (Auto) 62 42-75 % Lymphocytes (%) (Auto) 29 12-44 % Monocytes (%) (Auto) 6 0-12 % Eosinophils (%) (Auto) 1 0-10 % Basophils (%) (Auto) 1 0-10 % Neutrophils # (Auto) 4.9 1.8-7.8 10^3/uL Lymphocytes # (Auto) 2.3 1.0-4.0 10^3/uL Monocytes # (Auto) 0.5 0.0-1.0 10^3/uL Eosinophils # (Auto) 0.1 0.0-0.3 10^3/uL Basophils # (Auto) 0.1 0.0-0.1 10^3/uL Immature Granulocyte # (Auto) 0.0 0.0-0.1 10^3/uL Sodium Level 138 135-145 MMOL/L Potassium Level 3.8 3.6-5.0 MMOL/L Chloride Level 106 98-107 MMOL/L Carbon Dioxide Level 21 21-32 MMOL/L Anion Gap 11 5-14 MMOL/L Blood Urea Nitrogen 7 7-18 MG/DL Creatinine 0.85 0.60-1.30 MG/DL Estimat Glomerular Filtration Rate 73 BUN/Creatinine Ratio 8 Glucose Level 118 H 70-105 MG/DL Calcium Level 9.4 8.5-10.1 MG/DL Corrected Calcium 9.2 8.5-10.1 MG/DL Magnesium Level 1.7 1.6-2.4 MG/DL Total Bilirubin 0.7 0.1-1.0 MG/DL Aspartate Amino Transf (AST/SGOT) 22 5-34 U/L Alanine Aminotransferase (ALT/SGPT) 16 0-55 U/L Alkaline Phosphatase 83 40-136 U/L Total Protein 7.1 6.4-8.2 GM/DL Albumin 4.2 3.2-4.5 GM/DL Amylase Level 43 25-125 U/L Lipase 7 L 8-78 U/L Serum Alcohol < 10 <10 MG/DL Urine Color YELLOW Urine Clarity CLEAR Urine pH 7.0 5-9 Urine Specific Amelia 1.015 L 1.016-1.022 Urine Protein NEGATIVE NEGATIVE Urine Glucose (UA) NEGATIVE NEGATIVE Urine Ketones NEGATIVE NEGATIVE Urine Nitrite NEGATIVE NEGATIVE Urine Bilirubin NEGATIVE NEGATIVE Urine Urobilinogen 0.2 < = 1.0 MG/DL Urine Leukocyte Esterase NEGATIVE NEGATIVE Urine RBC (Auto) NEGATIVE NEGATIVE Urine RBC 0-2 /HPF Urine WBC 0-2 /HPF Urine Squamous Epithelial Cells 0-2 /HPF Urine Crystals NONE /LPF Urine Bacteria NEGATIVE /HPF Urine Casts NONE /LPF Urine Mucus NEGATIVE /LPF Urine Yeast MODERATE H /HPF Urine Culture Indicated YES Urine Opiates Screen NEGATIVE NEGATIVE Urine Oxycodone Screen NEGATIVE NEGATIVE Urine Methadone Screen NEGATIVE NEGATIVE Urine Propoxyphene Screen NEGATIVE NEGATIVE Urine Barbiturates Screen NEGATIVE NEGATIVE Ur Tricyclic Antidepressants Screen NEGATIVE NEGATIVE Urine Phencyclidine Screen NEGATIVE NEGATIVE Urine Amphetamines Screen NEGATIVE NEGATIVE Urine Methamphetamines Screen NEGATIVE NEGATIVE Urine Benzodiazepines Screen NEGATIVE NEGATIVE Urine Cocaine Screen NEGATIVE NEGATIVE Urine Cannabinoids Screen NEGATIVE NEGATIVE Micro Results Microbiology 02/10/23 Urine Culture - Preliminary, Resulted NO GROWTH My Orders Orders - SHIRIN MEHTA DO Ed Iv/Invasive Line Start (02/10/23 21:03) Monitor-Rhythm Ecg Trace Only (02/10/23 21:03) Alcohol (02/10/23 21:03) Amylase (02/10/23 21:03) Cbc With Automated Diff (02/10/23 21:03) Comprehensive Metabolic Panel (02/10/23 21:03) Drug Screen Stat (Urine) (02/10/23 21:03) Lipase (02/10/23 21:03) Magnesium (02/10/23 21:03) Ua Culture If Indicated (02/10/23 21:03) Ondansetron Injection (Ondansetron Inj (02/10/23 21:15) Ed Iv/Invasive Line Start (02/10/23 21:03) Lactated Ringers 1,000 Ml (Lactated Ring (02/10/23 21:15) Pantoprazole Injection (Pantoprazole Inj (02/10/23 21:15) Catheter(Urinary) Insert & Ass 15 (02/10/23 21:11) Lidocaine 2% (Urojet) (Lidocaine 2% (Uro (02/10/23 21:15) Scopolamine Patch (Scopolamine Patch) (02/10/23 21:15) Ed Admission (Communication) (02/10/23 21:36) Medications Given in ED Vital Signs/I&O 02/10/23 20:57 Temp 36.3 Pulse 75 Resp 18 B/P (MAP) 178/88 (118) O2 Delivery Room Air Capillary Refill : Progress Note : Progress Note VITALS ON ARRIVAL: TEMP 36.3, HR 75, RR 18, BP 178/88, O2 SAT 985 ON ROOM AIR GIVEN: -IV FLUIDS -ZOFRAN -PROTONIX NO DETERIORATION IN PT'S CONDITION NO VOMITING DURING ER STAY WAS INCONTINENT OF STOOL ON ARRIVAL, NO OTHER BM'S DURING ER STAY VITALS STABLE, NO TACHYCARDIA, NO HYPOTENSION, NO FEVER NO ABDOMINAL PAIN LABS: -CBC NORMAL WITH WBC 7.8 -CMP NORMAL -AMYLASE/LIPASE NORMAL -UA CLEAR EXCEPT FOR YEAST -UDS NEGATIVE -ETOH NEGATIVE DISCUSSED TEST RESULTS, NEED FOR ADMIT AND PT IS AGREEABLE TO PLAN REVIEWED PRIOR RECORDS INCLUDING ER VISITS, ADMITS/H&P'S/CONSULTS/DISCHARGE SUMMARIES, TESTS/PROCEDURES Departure Communication (Admissions) 2128--SPOKE WITH DR. DRIVER, HOSPITALIST FOR [facility]. ACCEPTS PT FOR ADMIT. SHE WILL DO ADMIT ORDERS Impression Primary Impression: Intractable nausea and vomiting Additional Impressions: C. difficile diarrhea S/P kidney transplant Dizziness Generalized weakness Disposition: ADMITTED INPATIENT Condition: Stable Admissions Decision to Admit Reason: Admit from ER (General) Decision to Admit/Date: Feb 10, 2023 Time/Decision to Admit Time: 21:30 Departure-Patient Inst. Referrals: MALDONADO GARRETT DO (PCP/Family) Primary Care Physician Scripts Clonazepam (Clonazepam) 0.5 Mg Tablet 0.5 MG PO BID, #1 TAB Prov: JOSEPH DRIVER DO 02/10/23 SHIRIN MEHTA DO Feb 10, 2023 21:23
[2023-02-10 21:27] LABS: ALBUMIN 4.2 GM/DL (3.2-4.5); CHLORIDE 106 MMOL/L (98-107); POTASSIUM 3.8 MMOL/L (3.6-5.0); SODIUM 138 MMOL/L (135-145)
[2023-02-10 21:28] LABS: AMYLASE 43 U/L (25-125); CALCIUM 9.4 MG/DL (8.5-10.1)
[2023-02-10 21:29] LABS: GLUCOSE 118 MG/DL (70-105); TOTAL PROTEIN 7.1 GM/DL (6.4-8.2)
[2023-02-10 21:30] LABS: CARBON DIOXIDE 21 MMOL/L (21-32)
[2023-02-10 21:31] LABS: BILIRUBIN,TOTAL 0.7 MG/DL (0.1-1.0)
[2023-02-10 21:33] LABS: ALKALINE PHOSPHATASE 83 U/L (40-136); CREATININE SERUM 0.85 MG/DL (0.60-1.30); GFR ESTIMATED 73
[2023-02-10 21:34] LABS: BUN/CREATININE RATIO 8
[2023-02-10 21:36] LABS: ALANINE AMINOTRANSFERASE 16 U/L (0-55); MAGNESIUM 1.7 MG/DL (1.6-2.4)
[2023-02-10 21:37] LABS: LIPASE 7 U/L (8-78)
[2023-02-10 22:18] LABS: CLARITY,URINE CLEAR; COLOR,URINE YELLOW
[2023-02-10 22:19] LABS: BACTERIA,URINE NEGATIVE /HPF; BILIRUBIN,URINE NEGATIVE (NEGATIVE); GLUCOSE, URINE (UA) NEGATIVE (NEGATIVE); KETONES,URINE NEGATIVE (NEGATIVE); LEUKOCYTE ESTERASE ,URINE NEGATIVE (NEGATIVE); NITRITE,URINE NEGATIVE (NEGATIVE); PROTEIN,URINE NEGATIVE (NEGATIVE); RBC,URINE 0-2 /HPF; SQUAMOUS EPITHELIAL CELL,UR 0-2 /HPF; WBC,URINE 0-2 /HPF; YEAST,URINE MODERATE /HPF
[2023-02-10 22:28] LABS: AMPHETAMINE SCREEN, URINE NEGATIVE (NEGATIVE); BARBITURATE SCREEN URINE NEGATIVE (NEGATIVE); BENZODIAZEPINES SCREEN URINE NEGATIVE (NEGATIVE); CANNABINOID SCREEN, URINE NEGATIVE (NEGATIVE); COCAINE SCREEN URINE NEGATIVE (NEGATIVE); METHADONE STAT NEGATIVE (NEGATIVE); OPIATE SCREEN URINE NEGATIVE (NEGATIVE); OXYCODONE STAT NEGATIVE (NEGATIVE); PROPOXYPHENE STAT NEGATIVE (NEGATIVE); TRICYCLIC ANTIDEPRESSANTS SCRE NEGATIVE (NEGATIVE)
[2023-02-10 22:40] VITALS: BP 172/85
[2023-02-10] MEDS ORDERED: LOPERAMIDE 2 MG CAPSULE PO PRN (22:45)
[2023-02-10] MEDS ORDERED: CALCIUM CARBONATE 500 MG CHEW TABLET PO PRN (22:45)
[2023-02-10] MEDS ORDERED: ANTACID SUSPENSION 30 ML UDC PO PRN (22:45)
[2023-02-10] MEDS ORDERED: MECLIZINE 25 MG TABLET PO PRN (22:45)
[2023-02-10] MEDS ORDERED: BISACODYL 10 MG SUPPOSITORY PR PRN (22:45)
[2023-02-10] MEDS ORDERED: MILK OF MAGNESIA 400 MG/5 ML 30 ML UDC PO PRN (22:45)
[2023-02-10] MEDS ORDERED: diphenhydrAMINE INJ 50 MG/ML VIAL IVP PRN (22:45)
[2023-02-10] MEDS ORDERED: ONDANSETRON 4 MG ORAL DISSOLVE TABLET PO PRN (22:45)
[2023-02-10] MEDS ORDERED: HYDROmorphone INJECTION 2 MG/ML VIAL IV PRN (22:45)
[2023-02-10] MEDS ORDERED: diphenhydrAMINE 25 MG TABLET PO PRN (22:45)
[2023-02-10] MEDS ORDERED: ACETAMINOPHEN 325 MG TABLET PO PRN (22:45)
[2023-02-10] MEDS ORDERED: PATIENT MAY USE OWN MEDS, ALL MC SCH (22:45)
[2023-02-10] MEDS ORDERED: LACTULOSE SYRUP 10GM/15ML 30ML UDC PO PRN (22:45)
[2023-02-10] MEDS ORDERED: ONDANSETRON INJECTION 4 MG/2 ML (SDV) IV PRN (22:45)
[2023-02-10] MEDS ORDERED: CLON0.5T4 PO (23:03)
[2023-02-10] MEDS: ENOXAPARIN 40 MG/0.4 ML SYRINGE SC SCH (23:17)
[2023-02-10] MEDS: NS IV 1000 ML 1,000 ML IV SCH (23:17)
[2023-02-11] VITALS (7 sets, daily range): BP systolic 139–169; BP diastolic 70–78
[2023-02-11 05:49] LABS: BASOPHILS # (AUTO) 0.1 10^3/uL (0.0-0.1); BASOPHILS % (AUTO) 1 % (0-10); EOSINOPHILS # (AUTO) 0.1 10^3/uL (0.0-0.3); EOSINOPHILS % (AUTO) 1 % (0-10); HEMATOCRIT 36 % (35-52); HEMOGLOBIN 12.3 g/dL (11.5-16.0); LYMPHOCYTES # (AUTO) 1.9 10^3/uL (1.0-4.0); LYMPHOCYTES % (AUTO) 27 % (12-44); MEAN CORPUSCULAR HEMOGLOBIN 29 pg (25-34); MEAN CORPUSCULAR HGB CONC 34 g/dL (32-36); MEAN CORPUSCULAR VOLUME 86 fL (80-99); MEAN PLATELET VOLUME 10.3 fL (9.0-12.2); MONOCYTES # (AUTO) 0.5 10^3/uL (0.0-1.0); MONOCYTES % (AUTO) 7 % (0-12); NEUTROPHILS # (AUTO) 4.3 10^3/uL (1.8-7.8); NEUTROPHILS % (AUTO) 63 % (42-75); PLATELET COUNT 178 10^3/uL (130-400); WHITE BLOOD COUNT 6.8 10^3/uL (4.3-11.0)
[2023-02-11 06:01] LABS: ALBUMIN 3.6 GM/DL (3.2-4.5)
[2023-02-11 06:02] LABS: POTASSIUM 3.7 MMOL/L (3.6-5.0)
[2023-02-11 06:03] LABS: CALCIUM 8.7 MG/DL (8.5-10.1)
[2023-02-11 06:04] LABS: TOTAL PROTEIN 6.1 GM/DL (6.4-8.2)
[2023-02-11 06:06] LABS: BILIRUBIN,TOTAL 0.7 MG/DL (0.1-1.0)
[2023-02-11 06:08] LABS: CREATININE SERUM 0.78 MG/DL (0.60-1.30)
--- NOTE | 2023-02-11 06:19 | History & Physical-Hospitalist ---
History of Present Illness HPI/Chief Complaint Chief complaint: Severe dizziness with presumed C. difficile colitis HPI: This is a 72-year-old female known to us from multiple hospital stays with a past medical history of dizziness and C. difficile colitis with recurrent UTIs and renal transplant status who presented to the ER with severe dizziness and EMS was called. Patient was found to have stable labs and severe diarrhea consistent with C. difficile colitis. She has chronic C. difficile colitis. She remains on antirejection meds and the rest of her home medications. at the bedside reports she is doing much better but will initiate PT and OT and fully evaluate and provide supportive care. Source: patient Exam Limitations: no limitations Date Seen 02/11/23 Time Seen by a Provider: 11:00 Attending Physician Jori Guerra DO PCP Admitting Physician: Chaya Gerber DO Attending Physician: Chaya Gerber DO Referring Physician Date of Admission Feb 10, 2023 at 22:10 Home Medications & Allergies Home Medications Reviewed patient Home Medication Reconciliation performed by pharmacy medication reconciliations speech therapist technician and/or nursing. Patients Allergies have been reviewed. Allergies Allergies Coded Allergies codeine (Unverified Allergy, Unknown, 02/12/17) morphine (Verified Allergy, Unknown, NAUSEA, 02/12/17) fentanyl (Verified Adverse Reaction, Severe, HALLUCINATIONS/VIOLENCE, 02/11/23) Past Utrdbpt-Bzvlec-Ockzmj Hx Patient Social History Marrital Status: Employed/Student: retired Tobacco Use?: No Smoking Status: Never a Smoker Smokeless Tobacco Frequency: Never a User Use of E-Cig and/or Vaping dev: No Substance use?: No Alcohol Use?: No Pt feels they are or have been: No Immunizations Up To Date Date of Influenza Vaccine: Apr 07, 2021 First/Initial COVID19 Vaccinat: 08/08 Second COVID19 Vaccination Lg: 09/05 Tetanus Booster (TDap): Less Than 5 Years Hepatitis A: No Hepatitis B: No PED Vaccines UTD: No Date of Pneumonia Vaccine: Jul 30, 2020 Seasonal Allergies Seasonal Allergies: Yes Current Status Advance Directives: Yes Communicates: Verbally Primary Language: Egyptian Preferred Spoken Language: Egyptian Is interpretation needed?: No Sensory deficits: Vision impairment, Hearing impairment Implanted or Applied Medical D: Stents Past Medical History Surgeries: Appendectomy, Cardiac, Dialysis, Ear Surgery, Eye Surgery, Hysterectomy, Kidney Transplant, Nephrectomy, Oophorectomy, Orthopedic, Renal, Tonsillectomy, Valve Replacement, Vascular Surgery Pneumonia Currently Using CPAP: No Currently Using BIPAP: No High Cholesterol, Hypertension Parkinson's Disease 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, 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 Sexually Transmitted Disease: No HIV/AIDS: No Kidney Infection, Bladder Infection, Renal Failure, UTI-Chronic Colitis, Gastroesophageal Reflux, Chronic Diarrhea, Polyps, C-Diff, Irritable Bowel Degenerate Disk Disease, Arthritis, Chronic Back Pain Parathyroid Disease, Diabetes, Non-Insulin dep Cataract, Glaucoma Loss of Vision: Left Hearing Impairment: Hard of Hearing, Hearing Aide Left Kidney Did You Recieve Any Treatments: Yes What Type of Treatment Did You: Surgical Intervention Anxiety, Depression Blood Disorders: No Adverse Reaction/Blood Tranf: No (HAS HAD BLOOD WITH NO REACTION) Past medical history 1. Aortic stenosis 2. Polycystic kidney disease 3. Depression 4. Hypertension 5. Hyperlipidemia 6. Paroxysmal atrial fibrillation 7. Diastolic dysfunction 8. 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 Gastroparesis Past surgical history 1. Tonsillectomy 2. Appendectomy 3. Hysterectomy 4. Right nephrectomy and transplant nephrectomy left 5. Aortic valve replacement with bilateral pulmonary vein ablation and staple amputation of the left atrial appendage Family Medical History Alzheimer's disease 19 MOTHER (later in life) Dementia 19 MOTHER No Pertinent Family Hx PAST SURGICAL HISTORY: -LEFT EYE REMOVED/ARTIFICIAL EYE DUE TO UVEITIS -RIGHT COCHLEAR IMPLANT -DIALYSIS SHUNT LEFT ARM--DIALYSIS X 4 YEARS -MULTIPLE REVISIONS OF DIALYSIS AV GRAFT -PERITONEAL DIALYSIS SHUNT -BILATERAL NEPHRECTOMY WITH RENAL TRANSPLANT-IN RLQ OF ABDOMEN--6 YEARS AGO--FOR POLYCYSTIC KIDNEY DISEASE -CARDIAC ABLATION -AORTIC VALVE REPLACEMENT WITH PIG VALVE FOR AORTIC STENOSIS -TONSILLECTOMY -APPENDECTOMY -HYSTERECTOMY/ LATER BSO -CARDIAC CATH 2010--NON-OBSTRUCTIVE DISEASE, NO INTERVENTION -BILATERAL PULMONARY VEIN ABLATION WITH STAPLE AMPTUATION OF LEFT ATRIAL APPENDAGE AT SAME TIME AORTIC VALVE REPLACEMENT -EGD/COLONOSCOPIES/POLYPECTOMIES -EXCISION OF LEFT HIP HEMATOMA 01/2017 [facility] IN [place]. Review of Systems Constitutional: see HPI, dizziness, malaise, weakness EENTM: no symptoms reported Respiratory: no symptoms reported Cardiovascular: no symptoms reported Gastrointestinal: no symptoms reported Genitourinary: no symptoms reported Musculoskeletal: back pain, joint pain Skin: no symptoms reported Psychiatric/Neurological: Anxiety, Depressed, Weakness All Other Systems Reviewed Negative Unless Noted: Yes Physical Exam Physical Exam Vital Signs Vital Signs - First Documented 02/10/23 02/10/23 02/10/23 20:57 22:40 23:07 Temp 36.3 Pulse 75 Resp 18 B/P (MAP) 178/88 (118) Pulse Ox 99 O2 Delivery Room Air FiO2 21 Capillary Refill : Height, Weight, BMI Height: 5'1.00" Weight: 127lbs. 1.0oz. 57.530127dt; 29.23 BMI Method:Stated General Appearance: No Apparent Distress, Chronically ill Eyes: Right Eye Normal Inspection, Right Eye PERRL HEENT: PERRL/EOMI, Normal ENT Inspection, Pharynx Normal, Moist Mucous Membranes Neck: Full Range of Motion, Normal Inspection, Non Tender Respiratory: Chest Non Tender, Lungs Clear, Normal Breath Sounds, No Accessory Muscle Use, No Respiratory Distress Cardiovascular: Regular Rate, Rhythm, No Edema, No Gallop, No JVD, No Murmur, Normal Peripheral Pulses Gastrointestinal: Normal Bowel Sounds, No Organomegaly, No Pulsatile Mass, Non Tender, Soft Back: Normal Inspection, No CVA Tenderness, No Vertebral Tenderness Extremity: Normal Capillary Refill, Normal Inspection, Normal Range of Motion, Non Tender, No Calf Tenderness, No Pedal Edema Neurologic/Psychiatric: Alert, 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 Assessment/Plan Admission Diagnosis Assessment: Severe dizziness Parkinson's disease Falls Renal transplant status h/o C diff colitis Severe diarrhea Current UTI Recurrent UTI Falls Plan: Supportive care IV fluid Continue UTI treatment Vancomycin p.o. Admission Status: Observation CHAYA GERBER DO Feb 11, 2023 06:19
[2023-02-11] MEDS ORDERED: DICYCLOMINE 10 MG CAPSULE PO SCH (09:00)
[2023-02-11] MEDS: SENNOSIDES 8.6 MG TABLET PO SCH ×2 (09:06→20:26)
[2023-02-11] MEDS: DOCUSATE SODIUM 100 MG CAPSULE PO SCH ×2 (09:06→20:26)
[2023-02-11] MEDS: VANCOMYCIN 125 MG CAPSULE PO SCH ×4 (09:28→20:23)
[2023-02-11] MEDS ORDERED: PATIENT MAY USE OWN MEDS, ALL MC SCH (11:30)
[2023-02-11] MEDS ORDERED: LOPERAMIDE 2 MG CAPSULE PO PRN (11:30)
[2023-02-11] MEDS ORDERED: ONDANSETRON 4 MG ORAL DISSOLVE TABLET SL PRN (11:30)
[2023-02-11] MEDS ORDERED: GABAPENTIN 600 MG TABLET PO SCH (13:00)
[2023-02-11] MEDS: NS IV 1000 ML 1,000 ML IV SCH ×2 (14:37→20:30)
[2023-02-11] MEDS: NITROFURANTOIN Monohydrate/Macro 100 MG CAPSULE PO SCH (20:22)
[2023-02-11] MEDS: [UNRECOGNIZED DRUG - REMARK] PO SCH (20:22)
[2023-02-11] MEDS: TACROLIMUS 1 MG CAPSULE (NON-FORMULARY) PO SCH (20:23)
[2023-02-11] MEDS: hydrOXYzine 25 MG CAPSULE PO SCH (20:24)
[2023-02-11] MEDS: [UNRECOGNIZED DRUG - REMARK] PO SCH (20:24)
[2023-02-11] MEDS: GABAPENTIN 600 MG TABLET PO SCH (20:26)
[2023-02-11] MEDS: clonazePAM 0.5 MG TABLET PO SCH (20:26)
[2023-02-11] MEDS: DICYCLOMINE 10 MG CAPSULE PO SCH (20:26)
[2023-02-11] MEDS: ENOXAPARIN 40 MG/0.4 ML SYRINGE SC SCH (20:28)
[2023-02-11] MEDS ORDERED: clonazePAM 0.5 MG TABLET PO SCH (21:00)
[2023-02-11] MEDS ORDERED: NON-FORMULARY MEDICATION 1 EA EA (Hydroxyzine Pamoate 50 MG) PO SCH (21:00)
[2023-02-11] MEDS ORDERED: NON-FORMULARY MEDICATION 1 EA EA (Cranberry Fruit (Cranberry) 450 MG) PO SCH (21:00)
[2023-02-11] MEDS ORDERED: DICYCLOMINE HCL 10 MG PO SCH (21:00)
[2023-02-11] MEDS: ARTIFICAL TEARS Ophth solution 0.4 ML UNIT DOSE OD SCH (22:01)
[2023-02-12] MEDS: MELATONIN 3 MG TABLET PO PRN (02:12)
[2023-02-12] MEDS: oxyCODONE IMMEDIATE RELEASE 5 MG TABLET PO PRN (02:12)
[2023-02-12 03:23] VITALS: BP 129/60
[2023-02-12 05:40] LABS: BASOPHILS # (AUTO) 0.1 10^3/uL (0.0-0.1); BASOPHILS % (AUTO) 1 % (0-10); EOSINOPHILS # (AUTO) 0.1 10^3/uL (0.0-0.3); EOSINOPHILS % (AUTO) 2 % (0-10); HEMATOCRIT 35 % (35-52); LYMPHOCYTES # (AUTO) 2.1 10^3/uL (1.0-4.0); LYMPHOCYTES % (AUTO) 30 % (12-44); MEAN CORPUSCULAR HEMOGLOBIN 30 pg (25-34); MEAN CORPUSCULAR HGB CONC 35 g/dL (32-36); MEAN CORPUSCULAR VOLUME 85 fL (80-99); MEAN PLATELET VOLUME 9.8 fL (9.0-12.2); MONOCYTES # (AUTO) 0.5 10^3/uL (0.0-1.0); MONOCYTES % (AUTO) 7 % (0-12); NEUTROPHILS # (AUTO) 4.2 10^3/uL (1.8-7.8); NEUTROPHILS % (AUTO) 60 % (42-75); PLATELET COUNT 161 10^3/uL (130-400)
[2023-02-12 05:48] LABS: ALBUMIN 3.4 GM/DL (3.2-4.5)
[2023-02-12 05:49] LABS: POTASSIUM 3.7 MMOL/L (3.6-5.0)
[2023-02-12 05:50] LABS: CALCIUM 8.3 MG/DL (8.5-10.1)
[2023-02-12 05:51] LABS: TOTAL PROTEIN 5.8 GM/DL (6.4-8.2)
[2023-02-12 05:53] LABS: BILIRUBIN,TOTAL 0.7 MG/DL (0.1-1.0)
[2023-02-12 05:55] LABS: CREATININE SERUM 0.79 MG/DL (0.60-1.30)
[2023-02-12] MEDS: clonazePAM 0.5 MG TABLET PO SCH ×2 (08:21→20:14)
[2023-02-12] MEDS: GABAPENTIN 600 MG TABLET PO SCH ×3 (08:21→20:13)
[2023-02-12] MEDS: VANCOMYCIN 125 MG CAPSULE PO SCH ×4 (08:22→20:15)
[2023-02-12 08:23] VITALS: BP 157/70
[2023-02-12] MEDS: DORZOLAMIDE 2% OPHTH SOLN 10 ML BTL OD SCH (08:23)
[2023-02-12] MEDS: [UNRECOGNIZED DRUG - REMARK] PO SCH (08:23)
[2023-02-12] MEDS: DICYCLOMINE 10 MG CAPSULE PO SCH ×2 (08:24→20:19)
[2023-02-12] MEDS: [UNRECOGNIZED DRUG - REMARK] PO SCH ×2 (08:25→20:17)
[2023-02-12] MEDS: buPROPion 100 MG TABLET PO SCH (08:25)
[2023-02-12] MEDS: TACROLIMUS 1 MG CAPSULE (NON-FORMULARY) PO SCH ×2 (08:27→20:21)
[2023-02-12] MEDS: METHENAMINE HIPPURATE 1 GM TABLET PO SCH (08:28)
[2023-02-12] MEDS: NITROFURANTOIN Monohydrate/Macro 100 MG CAPSULE PO SCH ×2 (08:28→20:18)
[2023-02-12] MEDS: FLUTICASONE NASAL SPRAY (120 SPRAYS) NS PRN (08:30)
[2023-02-12] MEDS: DOCUSATE SODIUM 100 MG CAPSULE PO SCH ×2 (08:32→20:22)
[2023-02-12] MEDS: SENNOSIDES 8.6 MG TABLET PO SCH ×2 (08:33→20:22)
[2023-02-12] MEDS: ARTIFICAL TEARS Ophth solution 0.4 ML UNIT DOSE OD SCH ×2 (08:34→20:21)
[2023-02-12] MEDS: VITAMIN D3 125 MCG (5,000 UNITS) TABLET PO SCH (08:39)
[2023-02-12] MEDS: ASPIRIN enteric coated 81MG TABLET PO SCH (08:40)
[2023-02-12] MEDS: LACTOBACILLUS ACIDOPHILUS (PROBIOTIC) CAPSULE PO SCH (08:40)
[2023-02-12] MEDS: NS IV 1000 ML 1,000 ML IV SCH (08:46)
--- NOTE | 2023-02-12 09:02 | Physical Therapy Progress Note ---
Therapy Progress Note Patient adamantly declined PT on this date. Spouse present to assist with having patient participate. Patient closed her eyes and would not respond the this PT. Will attempt tomorrow SARIAH Lopez PT Feb 12, 2023 09:02
--- NOTE | 2023-02-12 10:54 | Progress Note ---
Subjective Subjective/Events-last exam Patient states that she is still having alot of dizziness and was unable to work with PT today. She is sitting up in chair with her eyes closed. She has drank some water this AM but states that she does not have any appetite Review of Systems General: Fatigue HEENT: Visual Changes, Other (dizziness) Pulmonary: No Dyspnea Cardiovascular: No: Chest Pain, Palpitations, Edema Gastrointestinal: Nausea, Diarrhea Neurological: Weakness, Incoordination Objective Exam Last Set of Vital Signs Vital Signs Date Time Temp Pulse Resp B/P (MAP) Pulse Ox O2 Delivery O2 Flow Rate FiO2 02/12/23 08:23 36.2 71 16 157/70 (99) 93 Room Air 02/12/23 07:35 0.00 02/10/23 23:07 21 Capillary Refill : I&O Intake and Output 02/12/23 00:00 Intake Total 2020 ml Output Total 3395 ml Balance -1375 ml Intake Oral 2020 ml Output Urine Total 3395 ml # Bowel Movements 1 General: Alert, Oriented X3, No Acute Distress Lungs: Clear to Auscultation, Normal Air Movement Heart: Regular Rate, No Murmurs Abdomen: Normal Bowel Sounds, Soft Results/Procedures Lab Laboratory Tests 02/12/23 05:31: White Blood Count 7.0, Red Blood Count 4.07, Hemoglobin 12.0, Hematocrit 35, Mean Corpuscular Volume 85, Mean Corpuscular Hemoglobin 30, Mean Corpuscular Hemoglobin Concent 35, Red Cell Distribution Width 13.6, Platelet Count 161, Mean Platelet Volume 9.8, Immature Granulocyte % (Auto) 0, Neutrophils (%) (Auto) 60, Lymphocytes (%) (Auto) 30, Monocytes (%) (Auto) 7, Eosinophils (%) (Auto) 2, Basophils (%) (Auto) 1, Neutrophils # (Auto) 4.2, Lymphocytes # (Auto) 2.1, Monocytes # (Auto) 0.5, Eosinophils # (Auto) 0.1, Basophils # (Auto) 0.1, Immature Granulocyte # (Auto) 0.0, Sodium Level 140, Potassium Level 3.7, Chloride Level 113H, Carbon Dioxide Level 21, Anion Gap 6, Blood Urea Nitrogen 7, Creatinine 0.79, Estimat Glomerular Filtration Rate 79, BUN/Creatinine Ratio 9, Glucose Level 91, Calcium Level 8.3L, Corrected Calcium 8.8, Total Bilirubin 0.7, Aspartate Amino Transf (AST/SGOT) 17, Alanine Aminotransferase (ALT/SGPT) 13, Alkaline Phosphatase 59, Total Protein 5.8L, Albumin 3.4 Microbiology 02/10/23 Urine Culture - Final, Complete YEAST Assessment/Plan Assessment/Plan Assessment & Plan A/P Severe Dizziness Chronic C. 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 Debility - Encouraged PO hydration - Encouraged working with PT - VS stable - Yeast present in urine culture ERIN ROGERS MD Feb 12, 2023 10:54
[2023-02-12] MEDS ORDERED: NITR100C10 PO (11:43)
[2023-02-12] MEDS ORDERED: CLON0.5T4 PO (11:44)
[2023-02-12] MEDS ORDERED: VANC125C5 PO (11:45)
[2023-02-12 12:50] VITALS: BP 169/89
[2023-02-12 16:00] VITALS: BP 160/74
[2023-02-12] MEDS: hydrOXYzine 25 MG CAPSULE PO SCH (20:16)
[2023-02-12 20:18] VITALS: BP_SYST 126; BP_SYST 134; BP_DIAS 62; BP_DIAS 68
[2023-02-12] MEDS: [UNRECOGNIZED DRUG - REMARK] PO SCH (20:21)
[2023-02-12] MEDS: ENOXAPARIN 40 MG/0.4 ML SYRINGE SC SCH (20:23)
[2023-02-13] VITALS (9 sets, daily range): BP systolic 124–168; BP diastolic 70–85
[2023-02-13] MEDS: NS IV 1000 ML 1,000 ML IV SCH (01:50)
[2023-02-13 05:16] LABS: BASOPHILS % (AUTO) 1 % (0-10); EOSINOPHILS # (AUTO) 0.1 10^3/uL (0.0-0.3); EOSINOPHILS % (AUTO) 2 % (0-10); HEMATOCRIT 34 % (35-52); HEMOGLOBIN 12.1 g/dL (11.5-16.0); LYMPHOCYTES # (AUTO) 1.7 10^3/uL (1.0-4.0); LYMPHOCYTES % (AUTO) 25 % (12-44); MEAN CORPUSCULAR HEMOGLOBIN 30 pg (25-34); MEAN CORPUSCULAR HGB CONC 36 g/dL (32-36); MEAN CORPUSCULAR VOLUME 85 fL (80-99); MEAN PLATELET VOLUME 9.9 fL (9.0-12.2); MONOCYTES # (AUTO) 0.4 10^3/uL (0.0-1.0); MONOCYTES % (AUTO) 6 % (0-12); NEUTROPHILS # (AUTO) 4.4 10^3/uL (1.8-7.8); NEUTROPHILS % (AUTO) 66 % (42-75); PLATELET COUNT 165 10^3/uL (130-400); WHITE BLOOD COUNT 6.6 10^3/uL (4.3-11.0)
[2023-02-13 05:27] LABS: ALBUMIN 3.4 GM/DL (3.2-4.5)
[2023-02-13 05:28] LABS: POTASSIUM 3.6 MMOL/L (3.6-5.0)
[2023-02-13 05:29] LABS: CALCIUM 8.3 MG/DL (8.5-10.1)
[2023-02-13 05:30] LABS: TOTAL PROTEIN 5.7 GM/DL (6.4-8.2)
[2023-02-13 05:32] LABS: BILIRUBIN,TOTAL 0.7 MG/DL (0.1-1.0)
[2023-02-13 05:34] LABS: CREATININE SERUM 0.71 MG/DL (0.60-1.30)
[2023-02-13] MEDS: SENNOSIDES 8.6 MG TABLET PO SCH ×2 (08:00→21:15)
[2023-02-13] MEDS: clonazePAM 0.5 MG TABLET PO SCH ×2 (08:04→21:10)
[2023-02-13] MEDS: LACTOBACILLUS ACIDOPHILUS (PROBIOTIC) CAPSULE PO SCH (08:05)
[2023-02-13] MEDS: VITAMIN D3 125 MCG (5,000 UNITS) TABLET PO SCH (08:05)
[2023-02-13] MEDS: ASPIRIN enteric coated 81MG TABLET PO SCH (08:05)
[2023-02-13] MEDS: TACROLIMUS 1 MG CAPSULE (NON-FORMULARY) PO SCH ×2 (09:00→21:11)
[2023-02-13] MEDS: DICYCLOMINE 10 MG CAPSULE PO SCH ×2 (09:00→21:13)
[2023-02-13] MEDS: NITROFURANTOIN Monohydrate/Macro 100 MG CAPSULE PO SCH ×2 (09:00→21:12)
[2023-02-13] MEDS: GABAPENTIN 600 MG TABLET PO SCH ×3 (09:00→21:10)
[2023-02-13] MEDS: DORZOLAMIDE 2% OPHTH SOLN 10 ML BTL OD SCH (09:18)
[2023-02-13] MEDS: [UNRECOGNIZED DRUG - REMARK] PO SCH ×2 (09:18→21:12)
[2023-02-13] MEDS: buPROPion 100 MG TABLET PO SCH (09:19)
[2023-02-13] MEDS: [UNRECOGNIZED DRUG - REMARK] PO SCH (09:20)
[2023-02-13] MEDS: VANCOMYCIN 125 MG CAPSULE PO SCH ×4 (09:20→21:13)
[2023-02-13] MEDS: DOCUSATE SODIUM 100 MG CAPSULE PO SCH ×2 (09:25→21:15)
[2023-02-13] MEDS: FLUTICASONE NASAL SPRAY (120 SPRAYS) NS PRN (09:27)
[2023-02-13] MEDS: METHENAMINE HIPPURATE 1 GM TABLET PO SCH (09:29)
[2023-02-13] MEDS: ARTIFICAL TEARS Ophth solution 0.4 ML UNIT DOSE OD SCH ×2 (09:29→21:16)
--- NOTE | 2023-02-13 13:00 | Physical Therapy Evaluation ---
PT Evaluation-General Medical Diagnosis Admission Date Feb 10, 2023 at 22:10 Medical Diagnosis: C-diff/N&V Onset Date: Feb 10, 2023 Therapy Diagnosis Therapy Diagnosis: generalized weakness/debility Height/Weight Height (Feet): 5 Height (Inches): 1.00 Weight (Pounds): 127 Weight (Ounces): 1.0 Precautions Precautions/Isolations: Contact Isolation Weight Bear Status Right Lower Extremity: Right Weight Bearing/Tolerated Left Lower Extremity: Left Weight Bearing/Tolerated Referral Physician: Zabrina Reason for Referral: Evaluation/Treatment Medical History Pertinent Medical History: Atrial Fib, HTN, Neuropathy, Parkinson's, Renal Insufficiency Current History EMS secondary to N&V/diarrhea Reviewed History: Yes Social History Home: Single Level Current Living Status: Spouse Entry Into Home: Ramp Prior Prior Level of Function SCALE: Activities may be completed with or without assistive devices. 6-Exwurfmxmi-mjoilcv completes the activity by him/herself with no assistance from a helper. 5-Set-up or Clean-up Assistance-helper sets up or cleans up; patient completes activity. [place] assists only prior to or following the activity. 4-Supervision or Touching Assistance-helper provides verbal cues and/or touchi ng/steadying and/or contact guard assistance as patient completes activity. Assistance may be provided throughout the activity or intermittently. 3-Partial/Moderate Assistance-helper does LESS THAN HALF the effort. [place] lifts, holds or supports trunk or limbs, but provides less than half the effort. 2-Substantial/Maximal Assistance-helper does MORE THAN HALF the effort. [place] lifts or holds trunk or limbs and provides more than half the effort. 0-Jfgnryeea-gfolfe does ALL the effort. Patient does none of the effort to complete the activity. Or, the assistance of 2 or more helpers is required for the patient to complete the activity. If activity was not attempted, code reason: 7-Patient Refused. 9-Not Applicable-not attempted and the patient did not perform the activity before the current illness, exacerbation or injury. 10-Not Attempted due to Environmental Limitations-(lack of equipment, weather restraints, etc.). 88-Not Attempted due to Medical Conditions or Safety Concerns. Bed Mobility: 4 Transfers (B,C,W/C): 4 Gait: 4 Indoor Mobility (Ambulation): Independent Prior Devices Use: Walker (stand up 4WW) PT Evaluation-Current Subjective Patient agrees to PT. Objective Patient Orientation: Person, Place, Time, Situation Attachments: Kong Catheter, IV ROM/Strength ROM Lower Extremities bilateral LE WFL Strength Lower Extremities 3-/5 grossly bilateral LE all planes Integumentary/Posture Bowel Incontinence: Yes Bladder Incontinence: Kong Cath Neuromuscular (Tone, Coordination, Reflexes) diminished with all Sensory Vision: Wears Glasses Hearing: Hearing Aid/Aides Transfers Lying to Sitting/Side of Bed(Q: 2 Sit to Stand (QC): 2 Chair/Svk-sr-Iastv Xfer(QC): 2 Gait Mode of Locomotion: Walk Anticipated Mode of Locomotion: Walk Walk 10 feet (QC): 3 Walk 50 ft with 2 Turns(QC): 3 Walk 150 ft (QC): 88 Distance: 100' Gait Assistive Device: FWW Comments/Gait Description very unsteady with PT correct Balance Sitting Static: Fair Sitting Dynamic: Fair Standing Static: Fair Standing Dynamic: Poor Assessment/Needs Patient will benefit from skilled PT to address functional strength and mobility to improve current LOF to safely return to home with spouse at maximum LOF. Rehab Potential: Guarded PT Shed Boss Goals Shed Boss Goals PT Shed Boss Goals Time Frame: Mar 03, 2023 Roll Left & Right (QC): 4 Sit to Lying (QC): 4 Lying-Sitting on Side/Bed(QC): 4 Sit to Stand (QC): 4 Chair/Grl-dl-Umpgj Xfer(QC): 4 Toilet Transfer (QC): 4 Walk 10 feet (QC): 4 Walk 50ft with 2 Turns (QC): 4 Walk 150 ft (QC): 4 PT Plan Problem List Problem List: Activity Tolerance, Functional Strength, Safety, Balance, Gait, Transfer, Bed Mobility Treatment/Plan Treatment Plan: Continue Plan of Care Treatment Plan: Bed Mobility, Education, Functional Activity Jose, Functional Strength, Gait, Safety, Therapeutic Exercise, Transfers Treatment Duration: Mar 03, 2023 Frequency: 6 times per week Estimated Hrs Per Day: .25 hour per day Patient and/or Family Agrees t: Yes Time Time In: 1110 Time Out: 1125 DATE: Feb 13, 2023 Total Billed Treatment Time: 15 Total Billed Treatment 1 visit EVMod 15 min SARIAH VALLADARES PT Feb 13, 2023 13:00
--- NOTE | 2023-02-13 13:44 | Progress Note ---
Subjective Subjective/Events-last exam Patient is feeling much better. Tolerated breakfast this AM. No longer having dizziness Review of Systems General: Fatigue Pulmonary: No Dyspnea, No Cough Cardiovascular: No: Chest Pain, Palpitations, Edema Gastrointestinal: Diarrhea; No: Nausea, Vomiting, Abdominal Pain Neurological: Weakness, Incoordination Objective Exam Last Set of Vital Signs Vital Signs Date Time Temp Pulse Resp B/P (MAP) Pulse Ox O2 Delivery O2 Flow Rate FiO2 02/13/23 11:36 36.6 63 18 166/83 (110) Room Air 02/13/23 07:38 92 02/12/23 07:35 0.00 02/10/23 23:07 21 Capillary Refill : I&O Intake and Output 02/13/23 00:00 Intake Total 1240 ml Output Total 2550 ml Balance -1310 ml Intake Oral 1240 ml Output Urine Total 2550 ml # Bowel Movements 1 General: Alert, Oriented X3, No Acute Distress Lungs: Clear to Auscultation, Normal Air Movement Heart: Regular Rate, No Murmurs Abdomen: Normal Bowel Sounds, Soft, Other (mild LLQ ttp, no rebound or gaurding) Extremities: No Edema, No Tenderness/Swelling Neuro: Normal Speech Results/Procedures Lab Laboratory Tests 02/13/23 05:00: White Blood Count 6.6, Red Blood Count 4.03, Hemoglobin 12.1, Hematocrit 34L, Mean Corpuscular Volume 85, Mean Corpuscular Hemoglobin 30, Mean Corpuscular Hemoglobin Concent 36, Red Cell Distribution Width 13.6, Platelet Count 165, Mean Platelet Volume 9.9, Immature Granulocyte % (Auto) 1, Neutrophils (%) (Auto) 66, Lymphocytes (%) (Auto) 25, Monocytes (%) (Auto) 6, Eosinophils (%) (Auto) 2, Basophils (%) (Auto) 1, Neutrophils # (Auto) 4.4, Lymphocytes # (Auto) 1.7, Monocytes # (Auto) 0.4, Eosinophils # (Auto) 0.1, Basophils # (Auto) 0.0, Immature Granulocyte # (Auto) 0.0, Sodium Level 143, Potassium Level 3.6, Chloride Level 114H, Carbon Dioxide Level 21, Anion Gap 8, Blood Urea Nitrogen 5L, Creatinine 0.71, Estimat Glomerular Filtration Rate 90, BUN/Creatinine Ratio 7, Glucose Level 87, Calcium Level 8.3L, Corrected Calcium 8.8, Total Bilirubin 0.7, Aspartate Amino Transf (AST/SGOT) 15, Alanine Aminotransferase (ALT/SGPT) 12, Alkaline Phosphatase 54, Total Protein 5.7L, Albumin 3.4 Microbiology 02/10/23 Urine Culture - Final, Complete YEAST Assessment/Plan Assessment/Plan Assessment & Plan A/P Severe Dizziness Chronic C. 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 Debility - Encouraged PO hydration - Encouraged working with PT - VS stable - Yeast present in urine culture 02/13: - Much improved, advance diet, D/c IVFs - PT, encourage ambulation - Plan to d/c in AM ERIN ROGERS MD Feb 13, 2023 13:44
[2023-02-13] MEDS: MELATONIN 3 MG TABLET PO PRN (21:11)
[2023-02-13] MEDS: oxyCODONE IMMEDIATE RELEASE 5 MG TABLET PO PRN (21:11)
[2023-02-13] MEDS: [UNRECOGNIZED DRUG - REMARK] PO SCH (21:14)
[2023-02-13] MEDS: hydrOXYzine 25 MG CAPSULE PO SCH (21:14)
[2023-02-13] MEDS: ENOXAPARIN 40 MG/0.4 ML SYRINGE SC SCH (22:54)
[2023-02-14 03:48] VITALS: BP 136/60
[2023-02-14 05:43] LABS: BASOPHILS # (AUTO) 0.1 10^3/uL (0.0-0.1); BASOPHILS % (AUTO) 1 % (0-10); EOSINOPHILS # (AUTO) 0.2 10^3/uL (0.0-0.3); EOSINOPHILS % (AUTO) 2 % (0-10); HEMATOCRIT 36 % (35-52); HEMOGLOBIN 12.4 g/dL (11.5-16.0); LYMPHOCYTES # (AUTO) 1.6 10^3/uL (1.0-4.0); LYMPHOCYTES % (AUTO) 20 % (12-44); MEAN CORPUSCULAR HEMOGLOBIN 29 pg (25-34); MEAN CORPUSCULAR HGB CONC 35 g/dL (32-36); MEAN CORPUSCULAR VOLUME 85 fL (80-99); MEAN PLATELET VOLUME 10.1 fL (9.0-12.2); MONOCYTES # (AUTO) 0.6 10^3/uL (0.0-1.0); MONOCYTES % (AUTO) 7 % (0-12); NEUTROPHILS # (AUTO) 5.6 10^3/uL (1.8-7.8); NEUTROPHILS % (AUTO) 70 % (42-75); PLATELET COUNT 170 10^3/uL (130-400); WHITE BLOOD COUNT 8.1 10^3/uL (4.3-11.0)
[2023-02-14 06:33] LABS: ALBUMIN 3.6 GM/DL (3.2-4.5); BILIRUBIN,TOTAL 0.9 MG/DL (0.1-1.0); CALCIUM 8.4 MG/DL (8.5-10.1); CREATININE SERUM 0.78 MG/DL (0.60-1.30); POTASSIUM 3.5 MMOL/L (3.6-5.0); TOTAL PROTEIN 5.8 GM/DL (6.4-8.2)
[2023-02-14 07:23] VITALS: BP 154/67
[2023-02-14] MEDS: ASPIRIN enteric coated 81MG TABLET PO SCH (08:00)
[2023-02-14] MEDS: VANCOMYCIN 125 MG CAPSULE PO SCH (08:20)
[2023-02-14] MEDS: buPROPion 100 MG TABLET PO SCH (08:20)
[2023-02-14] MEDS: NITROFURANTOIN Monohydrate/Macro 100 MG CAPSULE PO SCH (08:21)
[2023-02-14] MEDS: TACROLIMUS 1 MG CAPSULE (NON-FORMULARY) PO SCH (08:21)
[2023-02-14] MEDS: DICYCLOMINE 10 MG CAPSULE PO SCH (08:21)
[2023-02-14] MEDS: METHENAMINE HIPPURATE 1 GM TABLET PO SCH (08:22)
[2023-02-14] MEDS: LACTOBACILLUS ACIDOPHILUS (PROBIOTIC) CAPSULE PO SCH (08:22)
[2023-02-14] MEDS: [UNRECOGNIZED DRUG - REMARK] PO SCH (08:22)
[2023-02-14] MEDS: VITAMIN D3 125 MCG (5,000 UNITS) TABLET PO SCH (08:22)
[2023-02-14] MEDS: DORZOLAMIDE 2% OPHTH SOLN 10 ML BTL OD SCH (08:36)
[2023-02-14] MEDS: FLUTICASONE NASAL SPRAY (120 SPRAYS) NS PRN (08:36)
[2023-02-14] MEDS: ARTIFICAL TEARS Ophth solution 0.4 ML UNIT DOSE OD SCH (08:43)
[2023-02-14] MEDS: GABAPENTIN 600 MG TABLET PO SCH (08:43)
[2023-02-14] MEDS: clonazePAM 0.5 MG TABLET PO SCH (08:43)
[2023-02-14] MEDS: DOCUSATE SODIUM 100 MG CAPSULE PO SCH (09:22)
[2023-02-14] MEDS: SENNOSIDES 8.6 MG TABLET PO SCH (09:23)
[2023-02-14] MEDS: [UNRECOGNIZED DRUG - REMARK] PO SCH (09:27)
[2023-02-14 11:18] VITALS: BP 168/74
--- NOTE | 2023-02-14 11:57 | Physical Therapy Daily Note ---
PT Daily Note-Current Subjective Patient sitting in chair upon PT arrival, agreeable to treatment. Patient rates pain at 8/10 in right foot with activity. Pain Section J - Health Conditions 1. Rarely or not at all 2. Occasionally 3. Frequently 4. Almost constantly 8. Unable to answer Pain Effect on Sleep: 1 Pain Interference with Therapy: 3 Pain Interference w/Day-to-Day: 3 Transfers SCALE: Activities may be completed with or without assistive devices. 4-Khgcihlnuy-emgitzf completes the activity by him/herself with no assistance from a helper. 5-Set-up or Clean-up Assistance-helper sets up or cleans up; patient completes activity. [place] assists only prior to or following the activity. 4-Supervision or Touching Assistance-helper provides verbal cues and/or touching/steadying and/or contact guard assistance as patient completes activity. Assistance may be provided throughout the activity or intermittently. 3-Partial/Moderate Assistance-helper does LESS THAN HALF the effort. [place] lifts, holds or supports trunk or limbs, but provides less than half the effort. 2-Substantial/Maximal Assistance-helper does MORE THAN HALF the effort. [place] lifts or holds trunk or limbs and provides more than half the effort. 5-Uhuqmtlea-iotveq does ALL the effort. Patient does none of the effort to complete the activity. Or, the assistance of 2 or more helpers is required for the patient to complete the activity. If activity was not attempted, code reason: 7-Patient Refused. 9-Not Applicable-not attempted and the patient did not perform the activity before the current illness, exacerbation or injury. 10-Not Attempted due to Environmental Limitations-(lack of equipment, weather restraints, etc.). 88-Not Attempted due to Medical Conditions or Safety Concerns. Sit to Stand (QC): 3 Chair/Fpb-nc-Irada Xfer(QC): 3 Weight Bearing Right Lower Extremity: Right Weight Bearing/Tolerated Left Lower Extremity: Left Weight Bearing/Tolerated Gait Training Does the Patient Walk?: Yes Distance: 40' Walk 10 feet (QC): 3 Walk 50 ft with 2 Turns(QC): 3 Gait Assistive Device: FWW Assessment Current Status: Poor Progress Patient reports right foot is hurting severely at the moment, but with shoes on the pain is more mild. Patient ambulates 40 feet with FWW, with mod A and verbal cues for safety, progression and balance. Patient in the chair post treatment with all needs met, nursing notified, call light in hand and in the room. PT Shelter Goals Shelter Goals PT Eligibility Technician Goals Time Frame: Mar 03, 2023 Roll Left & Right (QC): 4 Sit to Lying (QC): 4 Lying-Sitting on Side/Bed(QC): 4 Sit to Stand (QC): 4 Chair/Eev-qp-Iiwnj Xfer(QC): 4 Toilet Transfer (QC): 4 Walk 10 feet (QC): 4 Walk 50ft with 2 Turns (QC): 4 Walk 150 ft (QC): 4 PT Plan Treatment/Plan Treatment Plan: Continue Plan of Care Treatment Plan: Bed Mobility, Education, Functional Activity Jose, Functional Strength, Gait, Safety, Therapeutic Exercise, Transfers Treatment Duration: Mar 03, 2023 Frequency: 6 times per week Estimated Hrs Per Day: .25 hour per day Patient and/or Family Agrees t: Yes Safety Risks/Education Patient Education: Gait Training, Transfer Techniques Teaching Recipient: Patient, Family Teaching Methods: Demonstration, Discussion Response to Teaching: Reinforcement Needed Time Time In: 950 Time Out: 1003 DATE: Feb 14, 2023 Total Billed Treatment Time: 13 Total Billed Treatment Visit, GT CABRERA AYOUB PT Feb 14, 2023 11:57
--- NOTE | 2023-02-14 12:16 | Discharge Summary ---
Diagnosis/Chief Complaint Date of Admission Feb 10, 2023 at 22:10 Date of Discharge 02/14/23 Admission Diagnosis Admission Diagnosis Severe Dizziness Chronic C. 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 Debility Discharge Diagnosis See above Discharge Summary-Simple/Stand Consultations Discharge Physical Examination Allergies: Coded Allergies: codeine (Unverified Allergy, Unknown, 02/12/17) morphine (Verified Allergy, Unknown, NAUSEA, 02/12/17) fentanyl (Verified Adverse Reaction, Severe, HALLUCINATIONS/VIOLENCE, 02/11/23) Vitals & I&Os Vital Sign - Last 12Hours Date Time Temp Pulse Resp B/P (MAP) Pulse Ox O2 Delivery O2 Flow Rate FiO2 02/14/23 11:18 37.1 71 18 168/74 (105) 94 Room Air 02/14/23 09:39 0.00 02/13/23 21:20 21 Intake and Output 02/14/23 00:00 Intake Total 1280 ml Output Total 1750 ml Balance -470 ml General Appearance: Alert, Oriented X3, No Acute Distress HEENT: PERRLA, EOMI Respiratory: Clear to Auscultation, Normal Air Movement Cardiovascular: Regular Rate, No Murmurs Abdominal: Normal Bowel Sounds, Soft, Other (mild LLQ ttp, no rebound or gaurding) Extremities: No Edema, No Tenderness/Swelling Hospital Course See final discharge diagnosis. Other pending tests - Recommend patient continue outpatient PT at [facility] Discharge Condition at discharge Stable Instructions to patient/family Please see electronic discharge instructions given to patient. Discharge Medications Reviewed and agree with Discharge Medication list on patient's Discharge Instruction sheet ERIN ROGERS MD Feb 14, 2023 12:16
[2023-02-14] MEDS ORDERED: MECL-149 PO (12:19)
--- NOTE | 2023-02-14 12:21 | Discharge Summary ---
Discharge [facility] Reconcile Patient Problems Problems Reviewed?: Yes Discharge Medications New, Converted or Re-Newed RX: Transmitted to Pharmacy New Medications: Meclizine HCl (Meclizine HCl) 25 Mg Tablet 25 MG PO Q6H PRN for dizziness, #20 TAB Continued Medications: Ascorbate Calcium (Vitamin C) 500 Mg Tablet 500 MG PO DAILY, TAB Aspirin (Adult Low Dose Aspirin EC) 81 Mg Tablet.dr 81 MG PO DAILY, TAB Brinzolamide (Azopt) 10 Ml Btl 1 DROP OD DAILY, EA Bupropion HCl (Bupropion HCl) 100 Mg Tablet 100 MG PO DAILY, TAB Cholecalciferol (Vitamin D3) (Vitamin D3) 125 Mcg Capsule 125 MCG PO DAILY, CAP Clonazepam (Clonazepam) 0.5 Mg Tablet 0.5 MG PO HS, TAB Cranberry Fruit (Cranberry) 450 Mg Tablet 450 MG PO BID, TAB Cyclosporine (Restasis) 1 Each Droperette 1 EACH OD BID, DROP Dicyclomine HCl (Dicyclomine HCl) 20 Mg Tablet 10 MG PO BID, TAB TAKES 1/2 OF A 20MG TAB Fluticasone Propionate (Flonase Allergy Relief) 9.9 Ml [place].susp 2 SPRAY NS DAILY PRN for CONGESTION, EACH Gabapentin (Gabapentin) 600 Mg Tablet 600 MG PO TID, TAB Hydroxyzine Pamoate (Hydroxyzine Pamoate) 50 Mg Capsule 50 MG PO HS, CAP L.acidoph & Paracasei,B.lactis (Probiotic) 1 Each Capsule 1 CAP PO DAILY, TAB Loperamide HCl (Imodium A-D) 2 Mg Capsule 2-4 MG PO UD PRN for DIARRHEA, CAP FOLLOW PACKAGE DIRECTIONS Methenamine Hippurate (Methenamine Hippurate) 1 Gram Tablet 1 GM PO DAILY, TAB Mirtazapine (Mirtazapine) 45 Mg Tablet 45 MG PO HS, TAB Mycophenolate Sodium (Mycophenolic Acid) 180 Mg Tablet.dr 180 MG PO BID, TAB Nitrofurantoin Monohyd/M-Cryst (Nitrofurantoin [place]-Mcr 100 mg) 100 Mg Capsule 100 MG PO BID FILLED 02-06-2023 #14/7 DAY SUPPLY Ondansetron (Ondansetron Odt) 4 Mg Tab.rapdis 4 MG SL Q4H PRN for NAUSEA/VOMITING, #10 TAB Pitavastatin Calcium (Livalo) 2 Mg Tablet 2 MG PO DAILY, TAB Tacrolimus (Tacrolimus) 1 Mg Capsule 1 MG PO BID, CAP [Uqora] () 1 PACKET PO Q72H for UTI PREVENTION, PACKET Vancomycin HCl (Vancomycin HCl) 125 Mg Capsule 125 MG PO BID, CAP FILLED 12-28-2022 #63 Patient Instructions Goal/Follow Up Appt: FDavidu 1-2 weeks with PCP Activity & Diet Discharge Diet: Low Residue ([place] diet) ERIN ROGERS MD Feb 14, 2023 12:21
--- NOTE | 2023-02-14 12:51 | Discharge Summary ---
Discharge Summary Instructions for Patient [facility] MD [employer], Assessment/Instructions Dizziness Chronic C diff Diarrhea [facility] to [facility] Discharge Diet for Home: other diet ([place] diet) Hospital Course Date of Admission: Feb 10, 2023 at 22:10 Admission Diagnosis : Family Physician/Provider: Jori Guerra DO Date of Discharge: 02/14/23 Discharge Diagnosis: See D/C Summ Labs and Pending Lab Test: Laboratory Tests 02/14/23 05:09: White Blood Count 8.1, Red Blood Count 4.23, Hemoglobin 12.4, Hematocrit 36, Mean Corpuscular Volume 85, Mean Corpuscular Hemoglobin 29, Mean Corpuscular Hemoglobin Concent 35, Red Cell Distribution Width 13.6, Platelet Count 170, Mean Platelet Volume 10.1, Immature Granulocyte % (Auto) 1, Neutrophils (%) (Auto) 70, Lymphocytes (%) (Auto) 20, Monocytes (%) (Auto) 7, Eosinophils (%) (Auto) 2, Basophils (%) (Auto) 1, Neutrophils # (Auto) 5.6, Lymphocytes # (Auto) 1.6, Monocytes # (Auto) 0.6, Eosinophils # (Auto) 0.2, Basophils # (Auto) 0.1, Immature Granulocyte # (Auto) 0.0, Sodium Level 142, Potassium Level 3.5L, Chloride Level 112H, Carbon Dioxide Level 21, Anion Gap 9, Blood Urea Nitrogen 7, Creatinine 0.78, Estimat Glomerular Filtration Rate 81, BUN/Creatinine Ratio 9, Glucose Level 89, Calcium Level 8.4L, Corrected Calcium 8.7, Total Bilirubin 0.9, Aspartate Amino Transf (AST/SGOT) 15, Alanine Aminotransferase (ALT/SGPT) 14, Alkaline Phosphatase 64, Total Protein 5.8L, Albumin 3.6 Microbiology 02/10/23 Urine Culture - Final, Complete YEAST Home Meds Active Meclizine HCl 25 Mg Tablet 25 Mg PO Q6H PRN Ondansetron Odt (Ondansetron) 4 Mg Tab.rapdis 4 Mg SL Q4H PRN Reported Vancomycin HCl 125 Mg Capsule 125 Mg PO BID FILLED 12-28-2022 #63 Clonazepam 0.5 Mg Tablet 0.5 Mg PO HS Nitrofurantoin [place]-Mcr 100 mg (Nitrofurantoin Monohyd/M-Cryst) 100 Mg Capsule 100 Mg PO BID FILLED 02-06-2023 #14/7 DAY SUPPLY [Uqora] 1 Packet PO Q72H Methenamine Hippurate 1 Gram Tablet 1 Gm PO DAILY Bupropion HCl 100 Mg Tablet 100 Mg PO DAILY Hydroxyzine Pamoate 50 Mg Capsule 50 Mg PO HS Mirtazapine 45 Mg Tablet 45 Mg PO HS Tacrolimus 1 Mg Capsule 1 Mg PO BID Imodium A-D (Loperamide HCl) 2 Mg Capsule 2-4 Mg PO UD PRN FOLLOW PACKAGE DIRECTIONS Vitamin D3 (Cholecalciferol (Vitamin D3)) 125 Mcg Capsule 125 Mcg PO DAILY Livalo (Pitavastatin Calcium) 2 Mg Tablet 2 Mg PO DAILY Mycophenolic Acid (Mycophenolate Sodium) 180 Mg Tablet.dr 180 Mg PO BID Cranberry (Cranberry Fruit) 450 Mg Tablet 450 Mg PO BID Restasis (Cyclosporine) 1 Each Droperette 1 Each OD BID Dicyclomine HCl 20 Mg Tablet 10 Mg PO BID TAKES 1/2 OF A 20MG TAB Gabapentin 600 Mg Tablet 600 Mg PO TID Flonase Allergy Relief (Fluticasone Propionate) 9.9 Ml [place].susp 2 [place] NS DAILY PRN Azopt (Brinzolamide) 10 Ml Btl 1 Drop OD DAILY Vitamin C (Ascorbate Calcium) 500 Mg Tablet 500 Mg PO DAILY Adult Low Dose Aspirin EC (Aspirin) 81 Mg Tablet.dr 81 Mg PO DAILY Probiotic (L.acidoph & Paracasei,B.lactis) 1 Each Capsule 1 Cap PO DAILY Patient Allergies: Coded Allergies: codeine (Unverified Allergy, Unknown, 02/12/17) morphine (Verified Allergy, Unknown, NAUSEA, 02/12/17) fentanyl (Verified Adverse Reaction, Severe, HALLUCINATIONS/VIOLENCE, 02/11/23) Height (Feet): 5 Height (Inches): 1.00 Weight (Pounds): 127 Weight (Ounces): 1.0 New Medications: Meclizine HCl (Meclizine HCl) 25 Mg Tablet 25 MG PO Q6H PRN for dizziness, #20 TAB Continued Medications: Ascorbate Calcium (Vitamin C) 500 Mg Tablet 500 MG PO DAILY, TAB Aspirin (Adult Low Dose Aspirin EC) 81 Mg Tablet.dr 81 MG PO DAILY, TAB Brinzolamide (Azopt) 10 Ml Btl 1 DROP OD DAILY, EA Bupropion HCl (Bupropion HCl) 100 Mg Tablet 100 MG PO DAILY, TAB Cholecalciferol (Vitamin D3) (Vitamin D3) 125 Mcg Capsule 125 MCG PO DAILY, CAP Clonazepam (Clonazepam) 0.5 Mg Tablet 0.5 MG PO HS, TAB Cranberry Fruit (Cranberry) 450 Mg Tablet 450 MG PO BID, TAB Cyclosporine (Restasis) 1 Each Droperette 1 EACH OD BID, DROP Dicyclomine HCl (Dicyclomine HCl) 20 Mg Tablet 10 MG PO BID, TAB TAKES 1/2 OF A 20MG TAB Fluticasone Propionate (Flonase Allergy Relief) 9.9 Ml [place].susp 2 SPRAY NS DAILY PRN for CONGESTION, EACH Gabapentin (Gabapentin) 600 Mg Tablet 600 MG PO TID, TAB Hydroxyzine Pamoate (Hydroxyzine Pamoate) 50 Mg Capsule 50 MG PO HS, CAP L.acidoph & Paracasei,B.lactis (Probiotic) 1 Each Capsule 1 CAP PO DAILY, TAB Loperamide HCl (Imodium A-D) 2 Mg Capsule 2-4 MG PO UD PRN for DIARRHEA, CAP FOLLOW PACKAGE DIRECTIONS Methenamine Hippurate (Methenamine Hippurate) 1 Gram Tablet 1 GM PO DAILY, TAB Mirtazapine (Mirtazapine) 45 Mg Tablet 45 MG PO HS, TAB Mycophenolate Sodium (Mycophenolic Acid) 180 Mg Tablet.dr 180 MG PO BID, TAB Nitrofurantoin Monohyd/M-Cryst (Nitrofurantoin [place]-Mcr 100 mg) 100 Mg Capsule 100 MG PO BID FILLED 02-06-2023 #14/7 DAY SUPPLY Ondansetron (Ondansetron Odt) 4 Mg Tab.rapdis 4 MG SL Q4H PRN for NAUSEA/VOMITING, #10 TAB Pitavastatin Calcium (Livalo) 2 Mg Tablet 2 MG PO DAILY, TAB Tacrolimus (Tacrolimus) 1 Mg Capsule 1 MG PO BID, CAP [Uqora] () 1 PACKET PO Q72H for UTI PREVENTION, PACKET Vancomycin HCl (Vancomycin HCl) 125 Mg Capsule 125 MG PO BID, CAP FILLED 12-28-2022 #63 Home Health Need/Face to Face Date of Face to Face: Feb 14, 2023 Clinical Findings: Generalized weakness and fatigue, Instability, Unsteady gait I have seen Pt jeur-qc-tvqt: Yes Discharged To: Home Diagnosis/Conditions: See D/c Summ Patient is Homebound due to: Emmanuel fall risk due to instabilty Homebound Status Due to the above stated illness, injury or surgical procedure (medical condition or diagnosis) and associated clinical findings, the patient is homebound because of his/her inability to leave home except with aid of a supportive device and/or person AND leaving the home requires a considerable and taxing effort or is medically contraindicated. Pt req the following assistanc: Aid of another person, Walker Home Health Nursing Orders Home Health Services Order: Nursing Services, Physical Therapy-Evaluate & Treat Therapy Orders Therapy Orders: PT to assess for OT Therapy Specific Orders: Increase strength/endurance Certify Stmt I certify that this patient is under my care and that I, a nurse practitioner or a physician; a certified ophthalmic surgical assistant working with me, had a face to face encounter that - meets the physician face to face encounter requirements with this patient as dated. Discharge Physical Exam General: Alert, Oriented X3, No Acute Distress Lungs: Clear to Auscultation, Normal Air Movement Heart: Regular Rate, No Murmurs Abdomen: Soft, No Tenderness Extremities: No Edema, No Tenderness/Swelling ERIN ROGERS MD Feb 14, 2023 12:51
[2023-02-14 13:05] VITALS: BP 168/74
== END 2023-02-14 13:34 | disposition home or self-care (01) ==
LOC: EDUNIT# 20:57 → ER 20:58 → 4TH 22:10 → UNDOADMOB 22:10 → 4TH 22:44 → UNDODISOB 02-14 13:34
PROVIDERS: ADMIT Internal Medicine; ATTEND Family Medicine
DX: R42 Dizziness and giddiness (principal); A04.72 Enterocolitis due to Clostridium difficile, not specified as recurrent; N39.0 Urinary tract infection, site not specified; G20 Parkinson's disease; R53.81 Other malaise; Z94.0 Kidney transplant status
CPT/HCPCS: 80053 ×5; 80306; 81000; 82150; 83690; 83735; 85025 ×5; 87088; 93041; 94760 ×2; 96361; 96372 ×4; 96374; 96375; 96376; 97116; 97162; 99284; G0378; G0480; 36415; 80320